=== PATIENT | male | born 1950 | race Native Hawaiian/Other Pacific Islander ===

== ENCOUNTER 2018-03-07 18:36 | Emergency (ER) | payer MEDICARE ==
[2018-03-07] MEDS ORDERED: KETOROLAC 30 MG/ML 1 ML VIAL IVP STA (18:57)
--- NOTE | 2018-03-07 19:03 | ED ---
Chest Pain HPI - General Chief Complaint: Chest Pain Stated Complaint: rib pain Time Seen by Provider: 03/07/18 18:47 Source: patient, family, RN notes reviewed Mode of arrival: ambulatory Limitations: no limitations - History of Present Illness Initial Comments: This is a 68-year-old male who presents to the emergency department with chief complaint of right rib pain. Patient states that he is a smoker. He states that he had a cold 2 weeks ago and was coughing a lot. He states that he developed right-sided rib pain 2 weeks ago during these episodes of coughing. He states that the pain has been constant and has not subsided. He states he's been taking Advil with minimal relief. He states that approximately 30 minutes prior to arrival he coughed and heard a popping noise in the right side of his chest. He then felt a burning and sharp sensation and the pain increased. He states that since then the pain has subsided somewhat. Currently rates his pain as 7/10. He states that he feels the pain when he pushes along his last rib. Denies fevers or chills, shortness of breath, trauma pain, nausea or vomiting, diarrhea or constipation, dysuria or hematuria. Patient does admit to a history of hypertension. He states that he took his lisinopril this morning. - Related Data Home Medications Medication Instructions Recorded Confirmed Atenolol [Tenormin] 50 mg PO DAILY 03/07/18 03/07/18 Atorvastatin [Lipitor] 20 mg PO DAILY 03/07/18 03/07/18 Citalopram Hydrobromide [CeleXA] 20 mg PO DAILY 03/07/18 03/07/18 Lisinopril [Zestril] 20 mg PO DAILY 03/07/18 03/07/18 Ranitidine HCl [Zantac] 150 mg PO BID 03/07/18 03/07/18 Previous Rx's Medication Instructions Recorded HYDROcodone/APAP 5-325MG [[place] 5] 1 each PO Q6HR PRN #10 tab 03/07/18 Allergies Allergy/AdvReac Type Severity Reaction Status Date / Time No Known Allergies Allergy Verified 03/07/18 19:05 Review of Systems ROS Statement: Those systems with pertinent positive or pertinent negative responses have been documented in the HPI. ROS Other: All systems not noted in ROS Statement are negative. EKG Findings - EKG Comments: EKG Findings:: 19:17:30. Normal sinus rhythm, right bundle branch block. Ventricular rate 63 bpm, LA interval 172, QRS duration 158, QT/QTc 444/454. Past Medical History Past Medical History: Hyperlipidemia, Hypertension History of Any Multi-Drug Resistant Organisms: None Reported Past Surgical History: Hernia Repair Smoking Status: Current every day smoker Past Alcohol Use History: None Reported Past Drug Use History: None Reported General Exam - General Exam Comments Initial Comments: General: Awake and alert, well-developed; in no apparent distress. HEENT: Head atraumatic, normocephalic. Pupils are equal, round and reactive to light. Extraocular movements intact. Oropharynx moist without erythema or exudate. Neck: Supple. Normal ROM. Cardiovascular: Regular rate and rhythm. No murmurs, rubs or gallops. Chest symmetrical. Reproducible tenderness on palpation along anterior inferior right ribs. Respiratory: Lungs clear to auscultation bilaterally. No wheezes, rales or rhonchi. Normal respiratory effort with no use of accessory muscles. Abdomen: Soft, non-tender, non-distended. No rigidity, rebound or guarding. Normal bowel sounds in all 4 quadrants. Musculoskeletal: Normal ROM, no tenderness bilateral upper and lower extremities. Ambulating normally. Skin: [place], warm and dry without rashes or lesions. Neurological: Alert and oriented x3. CN II-XII grossly intact. Speech is fluent and answers are appropriate. No focal neuro deficits. Psychiatric: Normal mood and affect. No overt signs of depression or anxiety noted. Limitations: no limitations Course Vital Signs 03/07/18 03/07/18 03/07/18 18:38 19:38 20:41 Temperature 98.3 F 99.1 F Pulse Rate 67 58 L Respiratory 20 18 Rate Blood Pressure 218/93 197/89 188/87 O2 Sat by Pulse 96 95 Oximetry Chest Pain MDM - MDM X-ray right ribs with PA chest findings: Demonstrated are scattered senescent parenchymal change. No evidence for pneumothorax. No evidence for focal contusion. Mediastinal structures are midline. Small chip fracture is difficult to exclude at the tip of right rib #10. Correlate clinically point tenderness. No additional fracture seen. Impression: Correlate for right rib 10 fracture. This is a 68-year-old male who presents to the emergency department with chief complaint of right rib pain. Reproducible pain on palpation of right anterior inferior ribs. Full workup was performed on patient. CBC, CMP were unremarkable. Troponin and cardiac markers were negative. EKG revealed normal sinus rhythm with right bundle branch block. Chest x-ray revealed evidence for a right rib #10 fracture. Patient will be discharged home at this time with pain control and spirometer. Patient's vital signs are stable and he is in no acute distress. He is in agreement with plan and voices understanding. All questions were answered. Disposition Clinical Impression: Rib fracture Disposition: HOME SELF-CARE Condition: Good Instructions: Rib Fracture (ED) Additional Instructions: Please take medications as prescribed. Please follow up with primary care provider within 1-2 days. Return to emergency department if symptoms should worsen or any concerns arise. Prescriptions: HYDROcodone/APAP 5-325MG [[place] 5] 1 each PO Q6HR PRN #10 tab PRN Reason: Pain Is patient prescribed a controlled substance at discharge?: Yes Referrals: Slim Holloway MD [Primary Care Provider] - 1-2 days Time of Disposition: 20:56
[2018-03-07 19:42] LABS: Basophils # (A) 0.1 k/uL (0-0.2); Basophils % (A) 1 %; Eosinophils # (A) 0.3 k/uL (0-0.7); Eosinophils % (A) 3 %; HCT 44.8 % (39.0-53.0); HGB 15.7 gm/dL (13.0-17.5); Lymphocytes # (A) 1.7 k/uL (1.0-4.8); Lymphocytes % (A) 20 %; MCH 32.3 pg (25.0-35.0); MCHC 35.1 g/dL (31.0-37.0); MCV 92.2 fL (80.0-100.0); Mean Platelet Volume 7.5; Monocytes # (A) 0.5 k/uL (0-1.0); Monocytes % (A) 6 %; Neutrophils # (A) 5.8 k/uL (1.3-7.7); Neutrophils % (A) 69 %; Platelet Count 235 k/uL (150-450); RBC 4.85 m/uL (4.30-5.90); RDW 13.5 % (11.5-15.5); WBC 8.5 k/uL (3.8-10.6)
[2018-03-07 19:58] LABS: Partial Thromboplastin Time 26.1 sec (22.0-30.0); Prothrombin Time 9.7 sec (9.0-12.0)
[2018-03-07 20:15] LABS: Creatine Kinase 83 U/L (55-170)
[2018-03-07 20:19] LABS: ALT 20 U/L (21-72); AST 23 U/L (17-59); Albumin 4.2 g/dL (3.5-5.0); Alkaline Phosphatase 96 U/L (38-126); Anion Gap 13 mmol/L; Blood Urea Nitrogen 17 mg/dL (9-20); Calcium 9.6 mg/dL (8.4-10.2); Carbon Dioxide 26 mmol/L (22-30); Chloride 102 mmol/L (98-107); Glucose 136 mg/dL (74-99); Magnesium 1.9 mg/dL (1.6-2.3); Sodium 141 mmol/L (137-145); Total Bilirubin 0.5 mg/dL (0.2-1.3); Total Protein 7.4 g/dL (6.3-8.2)
--- NOTE | 2018-03-07 20:21 | XR ---
EXAMINATION TYPE: XR ribs RT w pa chest xray DATE OF EXAM: 03/07/2018 COMPARISON: NONE HISTORY: Pain TECHNIQUE: Single view of the chest 4 views of the ribs are submitted. FINDINGS: Demonstrated are scattered senescent parenchymal change. No Evidence for pneumothorax. N o evidence for focal contusion. Mediastinal structures are midline. Small chip fracture is difficult to exclude at the tip of right rib #10. Correlate clinically point tenderness. No additional fractur e seen. IMPRESSION: Correlate for right rib 10 fracture.
[2018-03-07 20:26] LABS: Creatine Kinase MB 1.8 ng/mL (0.0-2.4); Troponin I <0.012 ng/mL (0.000-0.034)
[2018-03-07] MEDS ORDERED: hydrALAZINE HCL 20 MG/ML 1 ML VIAL IVP STA (20:33)
[2018-03-07 21:10] VITALS: BP 176/80; PULSE 54; RESP 16; TEMP 98
== END 2018-03-07 21:22 | disposition home or self-care (01) ==
LOC: EC 18:36
DX: S22.31XA Fracture of one rib, right side, initial encounter for closed fracture (principal); I45.10 Unspecified right bundle-branch block; I10 Essential (primary) hypertension; E78.5 Hyperlipidemia, unspecified; F17.200 Nicotine dependence, unspecified, uncomplicated; Z79.899 Other long term (current) drug therapy; X58.XXXA Exposure to other specified factors, initial encounter
CPT/HCPCS: 36415; 93005; 83880; 80053; 82550; 82553; 83735; 84484; 85025; 85610; 85730; 71101; 99284; 96374; J1885

== ENCOUNTER 2020-11-04 16:37 | Emergency (ER) | payer MEDICARE ==
[2020-11-04 16:51] VITALS: BP 175/84; PULSE 56; RESP 20; TEMP 98
--- NOTE | 2020-11-04 17:29 | ED ---
ENT HPI - General Chief complaint: ENT Stated complaint: foreign body rt ear Time Seen by Provider: 11/04/20 16:57 Source: patient Mode of arrival: ambulatory Limitations: no limitations - History of Present Illness Initial comments: 70-year-old male presenting to emergency Department chief complaint of a Q-tip stuck in the ear. Patient reports this occurred about one hour prior to arrival. She reports minimal pain in the right ear. States he can feel the pressure still there. Denies any discharge from the ear. States he attempts to remove it at home with no success. - Related Data Home Medications Medication Instructions Recorded Confirmed Atorvastatin [Lipitor] 20 mg PO DAILY 03/07/18 03/07/18 Citalopram Hydrobromide [CeleXA] 20 mg PO DAILY 03/07/18 03/07/18 Ranitidine HCl [Zantac] 150 mg PO BID 03/07/18 03/07/18 atenoloL [Tenormin] 50 mg PO DAILY 03/07/18 03/07/18 lisinopriL [Zestril] 20 mg PO DAILY 03/07/18 03/07/18 Previous Rx's Medication Instructions Recorded HYDROcodone/APAP 5-325MG [[place] 5] 1 each PO Q6HR PRN #10 tab 03/07/18 Allergies Allergy/AdvReac Type Severity Reaction Status Date / Time No Known Allergies Allergy Verified 11/04/20 16:51 Review of Systems ROS Statement: Those systems with pertinent positive or pertinent negative responses have been documented in the HPI. ROS Other: All systems not noted in ROS Statement are negative. Past Medical History Past Medical History: Hyperlipidemia, Hypertension History of Any Multi-Drug Resistant Organisms: None Reported Past Surgical History: Hernia Repair Past Psychological History: No Psychological Hx Reported Smoking Status: Current every day smoker Past Alcohol Use History: None Reported Past Drug Use History: None Reported General Exam Limitations: no limitations General appearance: alert, in no apparent distress Head exam: Present: atraumatic, normocephalic, normal inspection Eye exam: Present: normal appearance, PERRL, EOMI Pupils: Present: normal accommodation ENT exam: Present: normal exam, normal oropharynx, mucous membranes moist, TM's normal bilaterally. Absent: normal external ear exam (Right ear foreign body) Neck exam: Present: normal inspection, full ROM. Absent: tenderness Respiratory exam: Present: normal lung sounds bilaterally. Absent: respiratory distress, wheezes Cardiovascular Exam: Present: regular rate, normal rhythm, normal heart sounds GI/Abdominal exam: Present: soft. Absent: distended, guarding Extremities exam: Present: normal inspection, full ROM, normal capillary refill. Absent: tenderness, pedal edema, joint swelling Back exam: Present: normal inspection, full ROM. Absent: tenderness, CVA tenderness (R), CVA tenderness (L) Neurological exam: Present: alert, oriented X3 Psychiatric exam: Present: normal affect, normal mood Skin exam: Present: warm, dry, intact, normal color Course Vital Signs 11/04/20 16:48 Temperature 98.0 F Pulse Rate 56 L Respiratory 20 Rate Blood Pressure 175/84 O2 Sat by Pulse 97 Oximetry Procedures - Foreign Body Removal Ear Location: ear canal (R) Foreign Body Suspected: other (qtip) Foreign Body Removed: yes Foreign Body Removal Technique: forceps Tympanic Membrane Intact: Yes Patient Tolerated Procedure: well Complications: none Medical Decision Making - Medical Decision Making 70-year-old male presenting to the emergency department with chief complaint of foreign body in the right ear. I was able to remove the Q-tip using forceps. Patient outer procedure well. Hepatic membrane appears intact. Return parameters discussed. Case discussed with physician. Disposition Clinical Impression: Foreign body in right ear Disposition: HOME SELF-CARE Condition: Stable Instructions (If sedation given, give patient instructions): Ear Foreign Body (ED) Additional Instructions: Return to emergency department if symptoms worsen. Is patient prescribed a controlled substance at d/c from ED?: No Referrals: Slim Holloway MD [Primary Care Provider] - 1-2 days Time of Disposition: 17:29
== END 2020-11-04 17:49 | disposition home or self-care (01) ==
LOC: EC 16:37
DX: T16.1XXA Foreign body in right ear, initial encounter (principal); E78.5 Hyperlipidemia, unspecified; I10 Essential (primary) hypertension; F17.200 Nicotine dependence, unspecified, uncomplicated; Z79.899 Other long term (current) drug therapy; X58.XXXA Exposure to other specified factors, initial encounter
CPT/HCPCS: 69200; 99282

== ENCOUNTER 2021-12-15 08:31 | Day surgery (SDC) | payer MEDICARE ==
[2021-12-11 15:10] VITALS: BMI 28.3
[~2021-12-15 08:31] MED LIST: LACTATED RINGERS 1,000 ML IV SCH
[2021-12-15] MEDS ORDERED: LACTATED RINGERS 1,000 ML IV ONE (09:08)
[2021-12-15 09:09] VITALS: TEMP 97.4
[2021-12-15] MEDS ORDERED: PROPOFOL 10 MG/ML 20 ML VIAL IV ONE (10:16)
[2021-12-15] MEDS ORDERED: LIDOCAINE 1% INJ 10MG/ML (20 ML MDV) ONE (10:16)
--- NOTE | 2021-12-15 10:37 | P.PCN ---
Date of Procedure: 12/15/21 Implants: BRIEF HISTORY: Patient is a 71-year-old pleasant white male scheduled for an elective colonoscopy as a part of evaluation of prior history of colon polyps. Last colonoscopy was 5 years ago. PROCEDURE PERFORMED: Colonoscopy snare polypectomy. PREOPERATIVE DIAGNOSIS: History of colon polyps. IV sedation per Anesthesia. PROCEDURE: After informed consent was obtained, the patient, was brought into the endoscopy unit. IV sedation was administered by Anesthesia under continuous monitoring. Digital rectal examination was normal. Initially the Olympus CF-160 flexible video colonoscope was then inserted in the rectum, gradually advanced into the cecum without any difficulty. Careful examination was performed as the scope was gradually being withdrawn. Ileocecal valve and the appendiceal orifice were visualized and appeared normal. Prep was excellent. Mucosa of the cecum, appeared normal. Ascending colon there was a 3 mm polyp that was removed by cold biopsy. In the past colon there were 2 polyps measuring 5 mm in size removed by snare polypectomy. In the descending colon there was a 5 mm polyp removed by snare polypectomy. Rest of the ascending colon, transverse colon, descending colon, sigmoid colon, and rectum appeared normal. In the distal rectum there was a 1.5 cm polyp removed by snare polypectomy. Scattered left sided diverticulosis seen. Retroflexion was performed in the rectum and no lesions were seen. The patient tolerated the procedure well. IMPRESSION: 3 mm ascending colon polyp status post cold biopsy 5 mm sessile transverse colon polyp status post snare polypectomy 5 mm 2 descending colon polyp status post polypectomy 1 cm distal rectal polyp status post polypectomy Scattered sigmoid diverticula RECOMMENDATIONS: Findings of this examination were discussed with the patient as well as his family. He was advised to follow with the biopsy results. If the biopsy reveals adenoma he can have a repeat colonoscopy in 3 years..
[2021-12-15 10:47] VITALS: RESP 16
[2021-12-15 11:14] VITALS: BP 173/78; PULSE 61
== END 2021-12-15 11:40 | disposition home or self-care (01) ==
LOC: ORWHC2ENDO 08:31
PROVIDERS: ATTEND Internal Medicine Gastroenterology
DX: D12.3 Benign neoplasm of transverse colon (principal); D12.4 Benign neoplasm of descending colon; K57.30 Diverticulosis of large intestine without perforation or abscess without bleeding; K62.1 Rectal polyp; Z86.010 Personal history of colon polyps
CPT/HCPCS: 45380; 45385; J2001; J2704; 88305

== ENCOUNTER 2023-07-19 11:59 | Inpatient (IN) | payer MEDICARE ==
[2023-07-19 12:38] LABS: Basophils # (A) 0.1 k/uL (0-0.2); Basophils % (A) 1 %; Eosinophils # (A) 0.1 k/uL (0-0.7); Eosinophils % (A) 1 %; HCT 46.2 % (39.0-53.0); HGB 15.8 gm/dL (13.0-17.5); Lymphocytes # (A) 2.5 k/uL (1.0-4.8); Lymphocytes % (A) 23 %; MCHC 34.2 g/dL (31.0-37.0); MCV 93.7 fL (80.0-100.0); Monocytes # (A) 0.6 k/uL (0-1.0); Monocytes % (A) 6 %; Neutrophils # (A) 7.4 k/uL (1.3-7.7); Neutrophils % (A) 69 %; Platelet Count 298 k/uL (150-450); RBC 4.92 m/uL (4.30-5.90); RDW 14.3 % (11.5-15.5); WBC 10.8 k/uL (3.8-10.6)
[2023-07-19 12:50] LABS: ALT 17 U/L (4-49); AST 27 U/L (17-59); African American GFR (CKD) >90 (>60 ml/min/1.73 sqM); Albumin 4.2 g/dL (3.5-5.0); Alkaline Phosphatase 102 U/L (38-126); Anion Gap 10 mmol/L; Blood Urea Nitrogen 14 mg/dL (9-20); Calcium 9.5 mg/dL (8.4-10.2); Carbon Dioxide 25 mmol/L (22-30); Chloride 104 mmol/L (98-107); Glucose 136 mg/dL (74-99); Non-African American GFR(CKD) 85 (>60 ml/min/1.73 sqM); Potassium 3.9 mmol/L (3.5-5.1); Sodium 139 mmol/L (137-145); Total Bilirubin 0.6 mg/dL (0.2-1.3); Total Protein 7.7 g/dL (6.3-8.2)
[2023-07-19 12:51] LABS: Partial Thromboplastin Time 26.4 sec (22.0-30.0); Prothrombin Time 10.3 sec (9.0-12.0)
--- NOTE | 2023-07-19 12:53 | XR ---
EXAMINATION TYPE: XR chest 2V DATE OF EXAM: 07/19/2023 COMPARISON: 03/07/2019 HISTORY: Shortness of breath TECHNIQUE: Frontal and lateral views of the chest are obtained. FINDINGS: Scattered senescent parenchymal changes noted. Hyperinflation compatible with COPD. Interstitial infiltrates noted.The mid and lower lung zones bilaterally could reflect interstitial ed aide versus interstitial pneumonia. Correlate clinically. Heart size is stable. Mediastinal structures are stable and grossly unremarkable. No evidence for hilar prominence. Degenerative changes dorsal spine. IMPRESSION: 1. Interstitial infiltrates noted. The mid and lower lung zones bilaterally could reflect interstitia l edema versus interstitial pneumonia. Correlate clinically.
--- NOTE | 2023-07-19 13:05 | ED ---
General Adult HPI - General Source: patient, RN notes reviewed Mode of arrival: ambulatory Limitations: no limitations <Kishor Ross - Last Filed: 07/19/23 15:46> - History of Present Illness -: days(s) Location: neck, chest Severity scale (1-10): 7 Consistency: constant Improves with: none Worsens with: movement Associated Symptoms: chest pain, diaphoresis, shortness of breath, weakness Treatments Prior to Arrival: none <Erwin Whitehead - Last Filed: 07/23/23 22:38> - General Chief complaint: Shortness of Breath Stated complaint: SOB Time Seen by Provider: 07/19/23 13:04 - History of Present Illness Initial comments: 73-year-old male presents emergency Department chief complaint shortness breath, chest tightness. Patient states he is a daily smoker. He states had minimal cough. Patient denies any fevers or chills. Patient states he does feel some tightness, squeezing sensation. Patient does have a history of hypertension hyperlipidemia patient states is scheduled to see cardiology soon. Patient states that he feels that he has gas in his chest. Patient denies any nausea vomiting. (Kishor Ross) 73 male with significant shortness of breath and chest tightness, history of COPD and smoking, this does feel significantly worse he does have lower extremity swelling heaviness and severe exertional dyspnea. (Erwin Whitehead) - Related Data Home Medications Medication Instructions Recorded Confirmed Atorvastatin [Lipitor] 20 mg PO HS 03/07/18 07/19/23 Citalopram Hydrobromide [CeleXA] 20 mg PO DAILY 03/07/18 07/19/23 atenoloL [Tenormin] 50 mg PO DAILY 03/07/18 07/19/23 lisinopriL [Zestril] 20 mg PO DAILY 03/07/18 07/19/23 Cholecalciferol [Vitamin D3 (25 50 mcg PO DAILY 12/11/21 07/19/23 Mcg = 1000 Iu)] Omeprazole Magnesium [PriLOSEC] 20 mg PO DAILY 12/11/21 07/19/23 predniSONE [Deltasone] 20 mg PO DAILY 07/19/23 07/19/23 Allergies Allergy/AdvReac Type Severity Reaction Status Date / Time No Known Allergies Allergy Verified 07/19/23 15:12 Review of Systems ROS Other: All systems not noted in ROS Statement are negative. <Kishor Ross Elin - Last Filed: 07/19/23 15:46> ROS Other: All systems not noted in ROS Statement are negative. <CharleyErwin Pablo - Last Filed: 07/23/23 22:38> ROS Statement: Those systems with pertinent positive or pertinent negative responses have been documented in the HPI. Past Medical History Past Medical History: GERD/Reflux, Hyperlipidemia, Hypertension History of Any Multi-Drug Resistant Organisms: None Reported Past Surgical History: Hernia Repair Past Anesthesia/Blood Transfusion Reactions: No Reported Reaction Past Psychological History: No Psychological Hx Reported Smoking Status: Current every day smoker - Past Family History Mother Family Medical History: No Reported History <Kishor Ross - Last Filed: 07/19/23 15:46> - Past Family History Father Family Medical History: Myocardial Infarction (NH) Additional Family Medical History / Comment(s): at age 90 from a myocardial infarction <Erwin Whitehead - Last Filed: 07/23/23 22:38> General Exam Limitations: no limitations General appearance: alert, in no apparent distress Head exam: Present: atraumatic, normocephalic, normal inspection Eye exam: Present: normal appearance, PERRL, EOMI. Absent: scleral icterus, conjunctival injection, periorbital swelling ENT exam: Present: normal exam, normal oropharynx, mucous membranes moist Neck exam: Present: normal inspection, full ROM. Absent: tenderness, meningismus, lymphadenopathy Respiratory exam: Present: wheezes, decreased breath sounds. Absent: normal lung sounds bilaterally, respiratory distress, rales, rhonchi, stridor Cardiovascular Exam: Present: regular rate, normal rhythm, normal heart sounds. Absent: systolic murmur, diastolic murmur, rubs, gallop, clicks GI/Abdominal exam: Present: soft, normal bowel sounds. Absent: distended, tenderness, guarding, rebound, rigid <Kishor Ross - Last Filed: 07/19/23 15:46> General appearance: alert, in no apparent distress, anxious Head exam: Present: atraumatic, normocephalic, normal inspection Eye exam: Present: normal appearance, PERRL, EOMI. Absent: scleral icterus, conjunctival injection, periorbital swelling ENT exam: Present: normal exam, mucous membranes moist Neck exam: Present: normal inspection. Absent: tenderness, meningismus, lymphadenopathy Respiratory exam: Present: normal lung sounds bilaterally, wheezes, rales, accessory muscle use, decreased breath sounds. Absent: respiratory distress, rhonchi, stridor Cardiovascular Exam: Present: regular rate, normal rhythm, normal heart sounds. Absent: systolic murmur, diastolic murmur, rubs, gallop, clicks GI/Abdominal exam: Present: soft, normal bowel sounds. Absent: distended, tenderness, guarding, rebound, rigid Extremities exam: Present: normal inspection, full ROM, normal capillary refill. Absent: tenderness, pedal edema, joint swelling, calf tenderness Back exam: Present: normal inspection Neurological exam: Present: alert, oriented X3, CN II-XII intact Psychiatric exam: Present: normal affect, normal mood Skin exam: Present: warm, dry, intact, normal color. Absent: rash <Erwin Whitehead - Last Filed: 07/23/23 22:38> - General Exam Comments Initial Comments: Visual Physical Exam Vital signs reviewed General: Well-appearing, nontoxic, no acute distress. Head: Normocephalic, atraumatic Eyes: PERRLA, EOMI ENT: Airway patent Chest: Nonlabored breathing Skin: No visual rash, normal skin tone Neuro: Alert and oriented 3 Musculoskeletal: No gross abnormalities (Kishor Ross) Course <Erwin Whitehead - Last Filed: 07/23/23 22:38> Vital Signs 07/19/23 07/19/23 07/19/23 12:01 14:28 16:27 Temperature 97.9 F 98 F Pulse Rate 72 60 64 Respiratory 18 19 19 Rate Blood Pressure 152/83 150/75 142/61 O2 Sat by Pulse 93 L 95 94 L Oximetry - Reevaluation(s) Reevaluation #1: 07/19/23 20:39 Medical record is reviewed (Erwin Whitehead) Reevaluation #2: 07/19/23 20:39 Patient remains a severe shortness of breath (Erwin Whitehead) Reevaluation #3: Patient informed results and questions answered (Erwin Whitehead) Reevaluation #4: Was pt. sent in by a medical professional or institution (NAZARIO Nguyen, SUPERVISOR ENGINE REPAIR, urgent care, hospital, or retirement...) When possible be specific @ -no Did you speak to anyone other than the patient for history (EMS, parent, family, police, friend...)? What history was obtained from this source @ -no Did you review nursing and triage notes (agree or disagree)? Why? @ -agree Are old charts reviewed (outside hosp., previous admission, EMS record, old EKG, old radiological studies, urgent care reports/EKG's, retirement records)? Report findings @ -yes Differential Diagnosis (chest pain, altered mental status, abdominal pain women, abdominal pain men, vaginal bleeding, weakness, fever, dyspnea, syncope, headache, dizziness, GI bleed, back pain, seizure, CVA, palpatations, mental health, musculoskeletal)? @ -prior EKG interpreted by me (3pts min.). @ -yes X-rays interpreted by me (1pt min.). @ -yes CT interpreted by me (1pt min.). @ -yes U/S interpreted by me (1pt. min.). @ -no What testing was considered but not performed or refused? (CT, X-rays, U/S, labs)? Why? @ -none What meds were considered but not given or refused? Why? @ -none Did you discuss the management of the patient with other professionals (seb schwartz i.e. NAZARIO Nguyen, SUPERVISOR ENGINE REPAIR, lab, RT, psych nurse, social media marketer, set up / operator, teacher, campus safety officer, case work aide)? Give summary @ -no Was smoking cessation discussed for >3mins.? @ -no Was critical care preformed (if so, how long)? @ -no Were there social determinants of health that impacted care today? How? (Homelessness, low income, unemployed, alcoholism, drug addiction, transportation, low edu. Level, literacy, decrease access to med. care, [facility], rehab)? @ -none Was there de-escalation of care discussed even if they declined (Discuss DNR or withdrawal of care, Hospice)? DNR status @ -no What co-morbidities impacted this encounter? (DM, HTN, Smoking, COPD, CAD, Cancer, CVA, ARF, Chemo, Hep., AIDS, mental health diagnosis, sleep apnea, morbid obesity)? @ -none Was patient admitted / discharged? Hospital course, mention meds given and route, prescriptions, significant lab abnormalities, going to OR and other pertinent info. @ - 73 male to the emergency department for evaluation of COPD, computed by CHF pulmonary edema Crestor distress and will admit for supportive care. Admitted Undiagnosed new problem with uncertain prognosis? @ -no Drug Therapy requiring intensive monitoring for toxicity (Heparin, Nitro, Insulin, Cardizem)? @ -no Were any procedures done? @ -no Diagnosis/symptom? @ -CHF COPD pulmonary edema and hypoxia with respiratory distress Acute, or Chronic, or Acute on Chronic? @ -Acute Uncomplicated (without systemic symptoms) or Complicated (systemic symptoms)? @ -Complicated Side effects of treatment? @ -no Exacerbation, Progression, or Severe Exacerbation? @ -exacerbation Poses a threat to life or bodily function? How? (Chest pain, USA, NH, pneumonia, PE, COPD, DKA, ARF, appy, cholecystitis, CVA, Diverticulitis, Homicidal, Suicidal, threat to staff... and all critical care pts) @ -yes (Erwin Whitehead) Reevaluation #5: Differential Dyspnea: Coronary syndrome, arrhythmia, tamponade, asthma, COPD, pulmonary embolism, pneumonia, pneumothorax, pulmonary effusion, anaphylaxis, diabetic ketoacidosis, flailed chest, pulmonary contusion, diaphragmatic rupture, anemia, neuromuscular, this is not meant to be an all-inclusive list. Differential Chest Pain: Stable Angina, Unstable Angina, STEMI, NSTEMI Aortic Dissection, Pneumothorax, Musculoskeletal, Esophageal Spasm GERD, Cholecystitis, Pancreatitis, Zoster, this is not meant to be an all-inclusive list. (Erwin Whitehead) EKG Findings - EKG Comments: EKG Findings:: EKG phone at 12.09 sinus rhythm with rate of 66 [place] 118 QRS 168 QT/QTC 424/438 noted right bundle - EKG Results: EKG: interpreted by YAIMA <Kishor Ross - Last Filed: 07/19/23 15:46> - EKG Results: EKG: interpreted by YAIMA <Erwin Whitehead - Last Filed: 07/23/23 22:38> Medical Decision Making - Lab Data Result diagrams: 07/19/23 12:21 07/19/23 12:21 <Kishor Ross - Last Filed: 07/19/23 15:46> - Lab Data Result diagrams: 07/21/23 07:45 07/23/23 07:44 - EKG Data -: EKG Interpreted by Me - Radiology Data Radiology results: report reviewed (CT chest is positive for pulmonary edema), image reviewed <Erwin Whitehead - Last Filed: 07/23/23 22:38> - Medical Decision Making Was pt. sent in by a medical professional or institution (, PA, SUPERVISOR ENGINE REPAIR, urgent care, hospital, or retirement...) When possible be specific @ -No Did you speak to anyone other than the patient for history (EMS, parent, family, police, friend...)? What history was obtained from this source @ -No Did you review nursing and triage notes (agree or disagree)? Why? @ -I reviewed and agree with nursing and triage notes Were old charts reviewed (outside hosp., previous admission, EMS record, old EKG, old radiological studies, urgent care reports/EKG's, retirement records)? Report findings @ -No old charts were reviewed Differential Diagnosis (chest pain, altered mental status, abdominal pain women, abdominal pain men, vaginal bleeding, weakness, fever, dyspnea, syncope, headache, dizziness, GI bleed, back pain, seizure, CVA, palpatations, mental health, musculoskeletal)? @ -nDifferential Chest Pain: Stable Angina, Unstable Angina, STEMI, NSTEMI Aortic Dissection, Pneumothorax, Musculoskeletal, Esophageal Spasm GERD, Cholecystitis, Pancreatitis, Zoster, this is not meant to be an all-inclusive list. cable EKG interpreted by me (3pts min.). @ -As above X-rays interpreted by me (1pt min.). @ -Chest x-ray shows pulmonary edema versus infiltrates. CT interpreted by me (1pt min.). @ -CT chest angiogram shows no evidence of PE there is pulmonary edema type changes, COPD U/S interpreted by me (1pt. min.). @ -None done What testing was considered but not performed or refused? (CT, X-rays, U/S, labs)? Why? @ -None What meds were considered but not given or refused? Why? @ -None Did you discuss the management of the patient with other professionals (seb llamase. , PA, SUPERVISOR ENGINE REPAIR, lab, RT, psych nurse, social media marketer, set up / operator, teacher, campus safety officer, case work aide)? Give summary @ -[facility] physician for admission secondary to chest pain, pulmonary edema. There is questionable evidence of pneumonia. Was smoking cessation discussed for >3mins.? @ -No Was critical care preformed (if so, how long)? @ -No Were there social determinants of health that impacted care today? How? (Homelessness, low income, unemployed, alcoholism, drug addiction, transportation, low edu. Level, literacy, decrease access to med. care, [facility], rehab)? @ -No Was there de-escalation of care discussed even if they declined (Discuss DNR or withdrawal of care, Hospice)? DNR status @ -No What co-morbidities impacted this encounter? (DM, HTN, Smoking, COPD, CAD, Cancer, CVA, ARF, Chemo, Hep., AIDS, mental health diagnosis, sleep apnea, morbid obesity)? @ -[Smoking COPD, CAD] Was patient admitted / discharged? Hospital course, mention meds given and r oute, prescriptions, significant lab abnormalities, going to OR and other pertinent info. @ -[Admitted patient is admitted for chest pain, dyspnea with next picture of pulmonary edema, COPD, possible pneumonia.] Undiagnosed new problem with uncertain prognosis? @ -[No] Drug Therapy requiring intensive monitoring for toxicity (Heparin, Nitro, Insulin, Cardizem)? @ -[No] Were any procedures done? @ -[No] Diagnosis/symptom? @ -[Chest pain, pulmonary edema, pneumonia] Acute, or Chronic, or Acute on Chronic? @ -[Acute] Uncomplicated (without systemic symptoms) or Complicated (systemic symptoms)? @ -[, Complicated] Side effects of treatment? @ -[No] Exacerbation, Progression, or Severe Exacerbation? @ -[No] Poses a threat to life or bodily function? How? (Chest pain, USA, NH, pneumonia, PE, COPD, DKA, ARF, appy, cholecystitis, CVA, Diverticulitis, Homicidal, Suicidal, threat to staff... and all critical care pts) @ -[Yes] (Kishor Ross) 73 male to be admitted for pneumonia pulmonary edema and chest pain, patient is in significant respiratory distress and will admit for supportive care, cardiology evaluation (Erwin Whitehead) - Lab Data Lab Results 07/19/23 07/19/23 07/19/23 Range/Units 12:21 12:21 12:21 WBC 10.8 H (3.8-10.6) k/uL RBC 4.92 (4.30-5.90) m/uL Hgb 15.8 (13.0-17.5) gm/dL Hct 46.2 (39.0-53.0) % MCV 93.7 (80.0-100.0) fL MCH 32.0 (25.0-35.0) pg MCHC 34.2 (31.0-37.0) g/dL RDW 14.3 (11.5-15.5) % Plt Count 298 (150-450) k/uL MPV 8.0 Neutrophils % 69 % Lymphocytes % 23 % Monocytes % 6 % Eosinophils % 1 % Basophils % 1 % Neutrophils # 7.4 (1.3-7.7) k/uL Lymphocytes # 2.5 (1.0-4.8) k/uL Monocytes # 0.6 (0-1.0) k/uL Eosinophils # 0.1 (0-0.7) k/uL Basophils # 0.1 (0-0.2) k/uL PT 10.3 (9.0-12.0) sec INR 1.0 (<1.2) APTT 26.4 (22.0-30.0) sec Sodium 139 (137-145) mmol/L Potassium 3.9 (3.5-5.1) mmol/L Chloride 104 (98-107) mmol/L Carbon Dioxide 25 (22-30) mmol/L Anion Gap 10 mmol/L BUN 14 (9-20) mg/dL Creatinine 0.86 (0.66-1.25) mg/dL Est GFR (CKD-EPI)AfAm >90 (>60 ml/min/1.73 sqM) Est GFR (CKD-EPI)NonAf 85 (>60 ml/min/1.73 sqM) Glucose 136 H (74-99) mg/dL Calcium 9.5 (8.4-10.2) mg/dL Total Bilirubin 0.6 (0.2-1.3) mg/dL AST 27 (17-59) U/L ALT 17 (4-49) U/L Alkaline Phosphatase 102 (38-126) U/L Troponin I (0.000-0.034) ng/mL NT-Pro-B Natriuret Pep pg/mL Total Protein 7.7 (6.3-8.2) g/dL Albumin 4.2 (3.5-5.0) g/dL 07/19/23 07/19/23 Range/Units 12:21 13:05 WBC (3.8-10.6) k/uL RBC (4.30-5.90) m/uL Hgb (13.0-17.5) gm/dL Hct (39.0-53.0) % MCV (80.0-100.0) fL MCH (25.0-35.0) pg MCHC (31.0-37.0) g/dL RDW (11.5-15.5) % Plt Count (150-450) k/uL MPV Neutrophils % % Lymphocytes % % Monocytes % % Eosinophils % % Basophils % % Neutrophils # (1.3-7.7) k/uL Lymphocytes # (1.0-4.8) k/uL Monocytes # (0-1.0) k/uL Eosinophils # (0-0.7) k/uL Basophils # (0-0.2) k/uL PT (9.0-12.0) sec INR (<1.2) APTT (22.0-30.0) sec Sodium (137-145) mmol/L Potassium (3.5-5.1) mmol/L Chloride (98-107) mmol/L Carbon Dioxide (22-30) mmol/L Anion Gap mmol/L BUN (9-20) mg/dL Creatinine (0.66-1.25) mg/dL Est GFR (CKD-EPI)AfAm (>60 ml/min/1.73 sqM) Est GFR (CKD-EPI)NonAf (>60 ml/min/1.73 sqM) Glucose (74-99) mg/dL Calcium (8.4-10.2) mg/dL Total Bilirubin (0.2-1.3) mg/dL AST (17-59) U/L ALT (4-49) U/L Alkaline Phosphatase (38-126) U/L Troponin I <0.012 (0.000-0.034) ng/mL NT-Pro-B Natriuret Pep 546 pg/mL Total Protein (6.3-8.2) g/dL Albumin (3.5-5.0) g/dL Critical Care Time Critical Care Time: Yes Total Critical Care Time: 31 <Erwin Whitehead - Last Filed: 07/23/23 22:38> Disposition Time of Disposition: 15:49 <Kishor Ross - Last Filed: 07/19/23 15:46> Is patient prescribed a controlled substance at d/c from ED?: No <Erwin Whitehead - Last Filed: 07/23/23 22:38> Clinical Impression: Pulmonary edema, Chest pain, Pneumonia, Acute pulmonary edema, Congestive heart failure Disposition: ADMITTED IP TO THIS HOSP Condition: Serious
--- NOTE | 2023-07-19 15:29 | CT ---
EXAMINATION TYPE: CT chest angio for PE DATE OF EXAM: 07/19/2023 COMPARISON: 07/19/2023 HISTORY: SOB CT DLP: 456.4 mGycm Automated exposure control for dose reduction was used. CONTRAST: CT Chest for pulmonary embolism performed with with IV Contrast, patient injected with 100 mL of Isov ue 370. FINDINGS: LUNGS: The lungs are grossly clear, there is no concerning parenchymal mass or nodule identified. T here is no pneumothorax seen. Tiny bilateral pleural effusions. The tracheobronchial tree is patent. Groundglass changes are seen which may reflect mild venous congestion. Peripheral subsegmental areas of consolidation and changes of COPD. Interlobular septal thickening suggestive of chronic interstit ial pulmonary fibrosis. There is mild peribronchial wall thickening involving the lung bases. Reflux of the contrast in the IVC can be associated with right right cardiac strain or hepatic venous conges tion. MEDIASTINUM: There is satisfactory enhancement of the pulmonary artery and its branches, there is no CT evidence for pulmonary embolism. There are multiple soft tissue nodules seen mediastinum and the hilum measuring short axis greater than 1 cm compatible with adenopathy. Aorta normal caliber with a therosclerotic changes. No pericardial effusion is seen. Coronary artery calcifications are seen. Th e heart is enlarged. Pulmonary artery measures 3.8 cm and appears dilated. OTHER: Hypertrophic and degenerative changes of the spine. Abdominal aorta is included in a portion of the film measuring 3.3 cm compatible with aneurysm. Incidental note made of gynecomastia. Divertic ulosis of the colon. IMPRESSION: 1. No diagnostic evidence of pulmonary embolism. 2. COPD, pulmonary fibrosis correlate for mild CHF. There is dense coronary artery atherosclerosis. 3. Incidental note made of a abdominal aortic aneurysm partially included in the [id number] measur ing 3.3 cm. Nonspecific mediastinal and hilar lymphadenopathy. 4. Prominent pulmonary artery can BE associated pulmonary arterial hypertension.
[2023-07-19] MEDS ORDERED: NITROGLYCERIN SL TABS 0.4 MG TAB SUBLINGUAL PRN (15:50)
[2023-07-19] MEDS ORDERED: ASPIRIN 81 MG PO STA (15:50)
[2023-07-19] MEDS ORDERED: AZITHROMYCIN 500 MG in SODIUM CHLORIDE 0.9% 250 ML IVPB STA (15:51)
[2023-07-19] MEDS ORDERED: MAG HYDROX/AL HYDROX/SIMETH 30 ML, HYOSCYAMINE ELIXIR 10 ML PO STA ×2 (15:52)
[2023-07-19] MEDS: NICOTINE 21MG/24HR PATCH TRANSDERM SCH (20:04)
[2023-07-19] MEDS ORDERED: ATORVASTATIN 20 MG TAB PO SCH (21:00)
[2023-07-19] MEDS: MELATONIN 3 MG TABLET PO PRN (23:27)
[2023-07-20 00:38] LABS: Glucose,Whole Blood 117 mg/dL (70-110)
[2023-07-20] MEDS ORDERED: ALPRAZolam 0.25 MG TAB PO STA (01:03)
[2023-07-20] MEDS: PANTOPRAZOLE 40 MG TABLET PO SCH (06:45)
[2023-07-20] MEDS: CHOLECALCIFEROL 25 MCG (1000 IU) TABLET PO SCH (08:36)
[2023-07-20] MEDS: NICOTINE 21MG/24HR PATCH TRANSDERM SCH (08:36)
[2023-07-20] MEDS: CITALOPRAM HYDROBROMIDE 20 MG TAB PO SCH (08:37)
[2023-07-20] MEDS: atenoloL 50 MG TAB PO SCH (08:37)
[2023-07-20] MEDS: lisinopriL 20 MG TAB PO SCH (08:37)
[2023-07-20] MEDS: SODIUM CHLORIDE 0.9% 1,000 ML in EMPTY BAG 1 BAG IV SCH ×2 (08:55→20:06)
[2023-07-20] MEDS ORDERED: ASPIRIN 325 MG TAB PO SCH (09:00)
[2023-07-20] MEDS: ALPRAZolam 0.25 MG TAB PO PRN ×2 (10:34→22:41)
[2023-07-20 13:34] LABS: Chol/HDL Ratio 3.53 Ratio; LDL Cholesterol,Calculated 60.5 mg/dL (0.0-131.0)
[2023-07-20] MEDS ORDERED: fentaNYL (PF) 50 MCG/ML 2 ML AMP ONE (13:43)
--- NOTE | 2023-07-20 13:44 | P.CRDCN ---
History of Present Illness Consult date: 07/20/23 History of present illness: History of Present Illness: The patient is a 73-year-old male with a known history of hypertension, hyperlipidemia who presented with symptoms of progressive dyspnea and chest tightness. He has no prior documented history of obstructive coronary artery disease. He has a history of chronic tobacco use. He had sudden onset worsening dyspnea and the chest tightness here in the emergency room he was in sinus mechanism with no acute ST segment changes. His lab data showed a troponin of 0.043. The patient has no recent cardiac workup. He denies any PND, orthopnea or peripheral edema, he denies any palpitation dizziness or syncope. He has no history of CHF but he was told that he has a heart murmur in the past. Medications: Lisinopril 20 mg daily, Tenormin 50 mg daily, Lipitor 20 mg daily, omeprazole Review of Systems: Respiratory: Chronic dyspnea on exertion and chronic tobacco use GI: No nausea or vomiting . No history of peptic ulcer disease. No recent GI bleed. : No hematuria or dysuria. Nervous System: No stroke or seizure. Physical Examination: He is a 73-year-old male, alert and oriented no apparent distress ,Blood pressure 127/70, Heart rate 60 Head: Normocephalic. Eyes: Sclerae nonicteric. Neck: Good carotid upstroke, no bruit, no jugular venous distention. Lungs: Clear to auscultation. Heart: Regular rate and rhythm, S1-S2, no S3, no rub. Systolic ejection murmur 3/6, mid peaking. Abdomen: Soft nontender, positive bowel sounds no organomegaly. Extremities: No edema, intact distal pulses. Labs: Hemoglobin 15.8, potassium 3.9, BUN 14, creatinine 0.86. Troponin less than 0.012, 0.031, 0.043. Computed tomography scan showed evidence of COPD with coronary calcifications, abdominal aortic aneurysm of 3.3 cm but no evidence of pulmonary embolism. EKG: Sinus mechanism with right bundle branch block and left axis deviation, cannot exclude inferior wall myocardial infarction Impression: 1. Chest discomfort with mild troponin elevation consistent with non-STEMI 2. Aortic valve murmur consistent with aortic stenosis, probably moderate 3. Dyspnea on exertion with chronic tobacco use 4. History of hypertension 5. History of hyperlipidemia Plan: 1. Continue home medications 2. Obtain an echocardiogram with Doppler 3. I have recommended to proceed with coronary angiography to assess his status and guide his treatment, the procedure as well as the risks and the complications were discussed with the patient 4. Depending on the results of the testing further recommendations will be made 5. Thank you for this consult we will follow with you Past Medical History Past Medical History: GERD/Reflux, Hyperlipidemia, Hypertension History of Any Multi-Drug Resistant Organisms: None Reported Past Surgical History: Hernia Repair Past Anesthesia/Blood Transfusion Reactions: No Reported Reaction Past Psychological History: No Psychological Hx Reported Smoking Status: Current every day smoker Past Alcohol Use History: None Reported Additional Past Alcohol Use History / Comment(s): STARTED SMOKING AT AGE 15 QUIT ON AND OFF AND CURRENTLY SMOKING , SMOKES 1/2 PPD Past Drug Use History: None Reported - Past Family History Mother Family Medical History: No Reported History Medications and Allergies Home Medications Medication Instructions Recorded Confirmed Type Atorvastatin [Lipitor] 20 mg PO HS 03/07/18 07/19/23 History Citalopram Hydrobromide [CeleXA] 20 mg PO DAILY 03/07/18 07/19/23 History atenoloL [Tenormin] 50 mg PO DAILY 03/07/18 07/19/23 History lisinopriL [Zestril] 20 mg PO DAILY 03/07/18 07/19/23 History Cholecalciferol [Vitamin D3 (25 50 mcg PO DAILY 12/11/21 07/19/23 History Mcg = 1000 Iu)] Omeprazole Magnesium [PriLOSEC] 20 mg PO DAILY 12/11/21 07/19/23 History predniSONE [Deltasone] 20 mg PO DAILY 07/19/23 07/19/23 History Allergies Allergy/AdvReac Type Severity Reaction Status Date / Time No Known Allergies Allergy Verified 07/19/23 15:12 Physical Exam Vitals: Vital Signs Temp Pulse Pulse Pulse Pulse Resp BP 07/20/23 12:45 98.2 F 61 16 07/20/23 08:35 98.3 F 60 16 07/20/23 04:00 98.1 F 73 20 07/19/23 23:18 98.1 F 68 18 07/19/23 20:00 98.3 F 63 18 07/19/23 17:15 98.4 F 63 20 07/19/23 16:27 98 F 64 19 142/61 07/19/23 14:28 60 19 150/75 BP Pulse Ox 07/20/23 12:45 127/70 98 07/20/23 08:35 135/72 95 07/20/23 04:00 163/83 97 07/19/23 23:18 131/69 95 07/19/23 20:00 136/78 95 07/19/23 17:15 134/78 95 07/19/23 16:27 94 L 07/19/23 14:28 95 Intake and Output 07/19/23 07/20/23 07/20/23 22:59 06:59 14:59 Intake Total 190 200.4 Balance 190 200.4 Intake: IV 10 Invasive Line 1 10 Intake, IV Titration 200.4 Amount Sodium Chloride 0.9% 1, 150.4 000 ml In Empty Bag 1 bag @ 1 ML/KG/HR 72.575 mls/ hr IV [id number] Rx#: [id number] cefTRIAXone 2 gm In 50 Sodium Chloride 0.9% 50 ml @ 100 mls/hr IVPB Q24HR [facility] Rx#:[id number] Oral 180 0 Other: Voiding Method Toilet Toilet Toilet # Voids 1 2 # Bowel Movements 1 Weight 72.575 kg Results 07/19/23 12:21 07/19/23 12:21 Cardiac Enzymes 07/19/23 07/19/23 Range/Units 17:00 20:24 Troponin I 0.031 0.043 H* (0.000-0.034) ng/mL Lipids 07/20/23 Range/Units 08:13 Triglycerides 131.00 (0.00-149.00) mg/dL Cholesterol 121.00 (0.00-200.00) mg/dL HDL Cholesterol 34.30 L (40.00-60.00) mg/dL Cholesterol/HDL Ratio 3.53 Ratio Current Medications Generic Name Dose Route Start Last Admin Trade Name Freq PRN Reason Stop Dose Admin Alprazolam 0.25 mg 07/20/23 09:26 07/20/23 10:34 Alprazolam 0.25 Mg Tab PO 0.25 mg BID PRN Administration Anxiety Aspirin 325 mg 07/20/23 09:00 07/20/23 08:37 Aspirin 325 Mg Tab PO 325 mg DAILY ANCA Administration Atenolol 50 mg 07/20/23 09:00 07/20/23 08:37 Atenolol 50 Mg Tab PO 50 mg DAILY ANCA Administration Atorvastatin Calcium 20 mg 07/19/23 21:00 07/19/23 20:03 Atorvastatin 20 Mg Tab PO 20 mg HS ANCA Administration Cholecalciferol 50 mcg 07/20/23 09:00 07/20/23 08:36 Cholecalciferol 25 Mcg (1000 Iu) Tablet PO 50 mcg DAILY ANCA Administration Citalopram Hydrobromide 20 mg 07/20/23 09:00 07/20/23 08:37 Citalopram Hydrobromide 20 Mg Tab PO 20 mg DAILY ANCA Administration Ceftriaxone Sodium 2 gm/ 50 mls @ 100 mls/hr 07/20/23 09:00 07/20/23 08:36 Sodium Chloride IVPB 100 mls/hr Q24HR ANCA Administration Protocol Heparin Sodium (Porcine) 10, 1,001 mls @ 999 mls/hr 07/21/23 07:00 000 unit/ Sodium Chloride IRRIGATION 07/21/23 23:00 ONCE PRN INTRA-OP Heparin Sodium (Porcine) 2,500 250.5 mls @ 250 mls/hr 07/21/23 07:00 unit/ Sodium Chloride IRRIGATION 07/21/23 23:00 ONCE PRN INTRA-OP Sodium Chloride 1,000 ml/ IV 1,000 mls @ 72.575 mls/hr 07/20/23 08:45 07/20/23 08:55 Solution IV 72.575 mls/hr .[id number] ANCA Administration 1 ML/KG/HR Lisinopril 20 mg 07/20/23 09:00 07/20/23 08:37 Lisinopril 20 Mg Tab PO 20 mg DAILY ANCA Administration Melatonin 6 mg 07/19/23 23:07 07/19/23 23:27 Melatonin 3 Mg Tablet PO 6 mg HS PRN Administration Insomnia Nicotine 1 patch 07/19/23 18:45 07/20/23 08:36 Nicotine 21mg/24hr Patch TRANSDERM 1 patch DAILY ANCA Administration Nitroglycerin 0.4 mg 07/19/23 15:50 Nitroglycerin Sl Tabs 0.4 Mg Tab SUBLINGUAL Q5M PRN Chest Pain Pantoprazole Sodium 40 mg 07/20/23 07:30 07/20/23 06:45 Pantoprazole 40 Mg Tablet PO 40 mg [id number] Administration Intake and Output 07/19/23 07/20/23 07/20/23 22:59 06:59 14:59 Intake Total 190 200.4 Balance 190 200.4 Intake: IV 10 Invasive Line 1 10 Intake, IV Titration 200.4 Amount Sodium Chloride 0.9% 1, 150.4 000 ml In Empty Bag 1 bag @ 1 ML/KG/HR 72.575 mls/ hr IV [id number] Rx#: [id number] cefTRIAXone 2 gm In 50 Sodium Chloride 0.9% 50 ml @ 100 mls/hr IVPB Q24HR [facility] Rx#:[id number] Oral 180 0 Other: Voiding Method Toilet Toilet Toilet # Voids 1 2 # Bowel Movements 1 Weight 72.575 kg 07/19/23 12:21 07/19/23 12:21
[2023-07-20] MEDS ORDERED: IV FLUID CONTINUATION 1,000 ML IV ONE (13:45)
[2023-07-20] MEDS ORDERED: fentaNYL (PF) 50 MCG/ML 2 ML AMP IVP ONE (13:54)
[2023-07-20] MEDS ORDERED: LIDOCAINE 1% INJ 10MG/ML (5 ML VIAL-PF) SQ ONE (13:55)
[2023-07-20] MEDS ORDERED: VERAPAMIL SYRINGE (5 MG/10 ML) INTRAARTER ONE (13:59)
--- NOTE | 2023-07-20 14:16 | CA ---
Transthoracic Echo Report Name: Francisco Lucio Age: 73 Gender: M : 1950 Exam Date: 07/20/2023 09:20 Exam Location: [facility] Ht (in): 64 Wt (lb): 160 Ordering Physician: Kishor Ross Attending/Referring Phys: [id number], Vandana Cad Designer Ja King Procedure CPT: Indications: Chest pain, SOB Cardiac Hx: Technical Quality: Technically difficult study Contrast 1: Total Dose (mL): Contrast 2: Total Dose (mL): MEASUREMENTS (Male / Female) Normal Values 2D ECHO LV Diastolic Diameter PLAX 4.2 cm 4.2 - 5.9 / 3.9 - 5.3 cm LV Systolic Diameter PLAX 3.0 cm IVS Diastolic Thickness 1.2 cm 0.6 - 1.0 / 0.6 - 0.9 cm LVPW Diastolic Thickness 1.3 cm 0.6 - 1.0 / 0.6 - 0.9 cm LV Relative Wall Thickness 0.6 RV Internal Dim ED PLAX 3.2 cm LVOT Diameter 2.3 cm Aortic Root Diameter 3.2 cm LV Diastolic Volume MOD BP 58.3 cm??? 67 - 155 / 56 - 104 cm??? LV Systolic Volume MOD BP 19.6 cm??? 22 - 58 / 19 - 49 cm??? LV Ejection Fraction MOD BP 66.4 % >= 55 % LV Cardiac Index MOD BP 1312.3 cm???/min???m??? LV Diastolic Volume MOD 4C 58.8 cm??? LV Systolic Volume MOD 4C 19.6 cm??? LV Ejection Fraction MOD 4C 66.6 % LV Cardiac Index MOD 4C 1326.7 cm???/min???m??? LV Diastolic Length 4C 7.8 cm LV Systolic Length 4C 6.9 cm LV Diastolic Volume MOD 2C 52.0 cm??? LV Systolic Volume MOD 2C 19.8 cm??? LV Ejection Fraction MOD 2C 61.9 % LV Cardiac Index MOD 2C 1090.0 cm???/min???m??? LV Diastolic Length 2C 6.9 cm LV Systolic Length 2C 6.7 cm LA Volume 61.4 cm??? 18 - 58 / 22 - 52 cm??? DOPPLER AV Peak Velocity 200.7 cm/s AV Peak Gradient 16.1 mmHg LVOT Peak Velocity 125.4 cm/s LVOT Peak Gradient 6.3 mmHg AV Area Cont Eq pk 2.6 cm??? MV Peak Velocity 120.2 cm/s MV Peak Gradient 5.8 mmHg MV Mean Velocity 60.7 cm/s MV Mean Gradient 1.7 mmHg MV Velocity Time Integral 43.4 cm MR Peak Velocity 368.4 cm/s MR Peak Gradient 54.3 mmHg Mitral E Point Velocity 72.9 cm/s Mitral A Point Velocity 78.5 cm/s Mitral E to A Ratio 0.9 MV Deceleration Time 267.1 ms MV E' Velocity 3.6 cm/s Mitral E to MV E' Ratio 20.0 TR Peak Velocity 256.4 cm/s TR Peak Gradient 26.3 mmHg Right Ventricular Systolic Press 34.9 mmHg PV Peak Velocity 130.1 cm/s PV Peak Gradient 6.8 mmHg FINDINGS Left Ventricle Normal LV size and wall thickness. Left ventricular ejection fraction is estimated at 55-60 %. Right Ventricle Normal right ventricular size. RVSP= 53mmhg. Right Atrium Normal right atrial size. Left Atrium Normal left atrial size. LA Volume index= 35ml/m2 Mitral Valve Mitral valve not well visualized. Moderate MR. Aortic Valve Aortic valve not well visualized. At least moderate AV calcification. Trace AI. Tricuspid Valve Tricuspid valve not well visualized. Moderate TR. Pulmonic Valve Pulmonic valve not well visualized. Pericardium Normal pericardium. Aorta Normal size aortic root. CONCLUSIONS Difficult parasternal views. Normal LV systolic function Moderate pulmonary hypertension Aortic sclerosis with mild aortic stenosis and mild aortic insufficiency Previewed by: Dr. Bairon Benitez MD (Electronically Signed) Final Date: 20 July 2023 14:15
--- NOTE | 2023-07-20 14:23 | P.HPIM ---
History of Present Illness H&P Date: 07/20/23 This is a 73-year-old male who presented to the emergency department with feeling of chest pain or shortness of breath. Patient reported some pressure and squeezing sensation along with a minimal cough and bloating. Patient reports he follows with Dr. Holloway in the outpatient setting with a past medical history of GERD, hyperlipidemia, hypertension, continues to smoke about 1 pack per day, has an occasional drink although not very often and denies any other illicit drug use. Chest x-ray in the ER shows interstitial infiltrates noted with mid and lower lung zones bilaterally that could reflect edema versus interstitial pneumonia. Patient underwent CTA of the chest showing no diagnostic evidence of PE, COPD with pulmonary fibrosis correlate for mild CHF with a dense coronary artery atherosclerosis noted along with incidental note of abdominal aortic aneurysm partially included measuring approximately 3.3 cm with nonspecific mediastinal and hilar lymphadenopathy. There is a prominent pulmonary artery that can be associated with pulmonary artery hypertension. 2-D echo was ordered and pending and was patient was admitted for chest pain for cardiology evaluation. Patient started on heparin as troponins was 0.031 and trending up at 0.043. Virology testing including influenza, RSV, and CoVid were all negative. WBC revealed a 10.8, hemoglobin 15.8, platelets 298, INR 1.0, sodium was 139 with a potassium of 3.9, BUN was 14 with creatinine of 0.86, total bili is 0.6, LFTs within normal limits, BNP was 546. Patient is currently maintained on 2 L of oxygen via nasal cannula for shortness of breath and oxygen saturations are 95-98% and patient reports he does not wear oxygen outpatient. Patient has been counseled extensively on complete tobacco cessation. Review Of Systems: Constitutional: No fever, no chills, no night sweats. No weight change. No weakness, fatigue or lethargy. No daytime sleepiness. EENT: No headache. No blurred vision or double vision, no loss of vision. No loss of Hearing, no ringing in the ears, no dizziness. No nasal drainage or congestion. No epistaxis. No sore throat. Lungs: Reports shortness of breath, slight cough, no sputum production. No wheezing. Cardiovascular: Reports chest pain, no lower extremity edema. No palpitations. No paroxysmal nocturnal dyspnea. No orthopnea. No lightheadedness or dizziness. No syncopal episodes. Abdominal: No abdominal pain. No nausea, vomiting. No diarrhea. No constipation. No bloody or tarry stools.. No loss of appetite. Genitourinary: No dysuria, increased frequency, urgency. No urinary retention. Musculoskeletal: No myalgias. No muscle weakness, no gait dysfunction, no fr equent falls. No back pain. No neck pain. Integumentary: No wounds, no lesions. No rash or pruritus. No unusual bruising. No change in hair or nails. Neurologic: No aphasia. No facial droop. No change in mentation. No head injury. No headache. No paralysis. No paresthesia. Psychiatric: No depression. No anxiety. No mood swings. Endocrine: No abnormal blood sugars. No weight change. No excessive sweating or thirst. No cold intolerance. PHYSICAL EXAMINATION: GENERAL: The patient is alert and oriented x4, Well developed, well nourished. HEENT: Pupils are round and equally reacting to light. EOMI. no scleral icterus. No conjunctival pallor. Normocephalic, atraumatic. No pharyngeal erythema. No thyromegaly. CARDIOVASCULAR: S1 and S2 muffled PULMONARY: diminished breath sounds bilaterally with no wheezing or rhonchi noted. ABDOMEN: soft. Nontender on exam. obese. non-distended, normoactive bowel sounds. No palpable organomegaly. MUSCULOSKELETAL: No joint swelling or deformity. EXTREMITIES: No cyanosis, clubbing, or pedal edema. NEUROLOGICAL: Gross neurological examination did not reveal any focal deficits. SKIN: No rashes. Assessment: Chest pain, rule out ACS Acute hypoxic respiratory failure, possibly secondary to acute heart failure exacerbation, new onset 2-D echo is ordered and pending and scheduled to undergo cardiac catheterization Mild troponin elevation, most likely NSTEMI Mild leukocytosis, possibly reactive COPD, not in exacerbation Coronary artery atherosclerosis noted on CTA 3.3 cm abdominal aortic aneurysm noted on CTA Aortic valve murmur consistent with aortic stenosis, moderate History of GERD Hyperlipidemia history Hypertension history Continued ongoing nicotine dependence, smokes about 1 pack per day GI prophylaxis DVT prophylaxis Full code Plan: Patient was admitted for cardiology evaluation recommending cardiac catheter ization which is scheduled for sometime today. Patient is maintained on IV heparin as troponins were trending up Patient is currently on 2 L via nasal cannula and will wean FiO2 as tolerated. 2-D echo ordered and pending Home medications have been reviewed and resumed as appropriate Continue GI and DVT prophylaxis and will await cardiac catheterization report Encouraged increased activity as tolerated Continue telemetry monitoring Patient was started on empiric antibiotics in the ER as patient reported a slight cough, suspicion for any infection is extremely low will order procalcitonin which is currently pending. WBC was very minimally elevated at 10.8 and patient remains afebrile. Patient counseled on smoking cessation. The impression and plan of care has been dictated by Delia Oakes, nurse practitioner as directed. Dr. Renuka MD I have performed a history and examination and MDM of this patient, discussed the same with the dictator, and agree with the dictator's assessment and plan as written ,documented as a scribe. Based on total visit time, I have performed more than 50% of the visit. Any additional findings or plans will be noted. Past Medical History Past Medical History: GERD/Reflux, Hyperlipidemia, Hypertension History of Any Multi-Drug Resistant Organisms: None Reported Past Surgical History: Hernia Repair Past Anesthesia/Blood Transfusion Reactions: No Reported Reaction Past Psychological History: No Psychological Hx Reported Smoking Status: Current every day smoker Past Alcohol Use History: None Reported Additional Past Alcohol Use History / Comment(s): STARTED SMOKING AT AGE 15 QUIT ON AND OFF AND CURRENTLY SMOKING , SMOKES 1/2 PPD Past Drug Use History: None Reported - Past Family History Mother Family Medical History: No Reported History Medications and Allergies Home Medications Medication Instructions Recorded Confirmed Type Atorvastatin [Lipitor] 20 mg PO HS 03/07/18 07/19/23 History Citalopram Hydrobromide [CeleXA] 20 mg PO DAILY 03/07/18 07/19/23 History atenoloL [Tenormin] 50 mg PO DAILY 03/07/18 07/19/23 History lisinopriL [Zestril] 20 mg PO DAILY 03/07/18 07/19/23 History Cholecalciferol [Vitamin D3 (25 50 mcg PO DAILY 12/11/21 07/19/23 History Mcg = 1000 Iu)] Omeprazole Magnesium [PriLOSEC] 20 mg PO DAILY 12/11/21 07/19/23 History predniSONE [Deltasone] 20 mg PO DAILY 07/19/23 07/19/23 History Allergies Allergy/AdvReac Type Severity Reaction Status Date / Time No Known Allergies Allergy Verified 07/19/23 15:12 Physical Exam Vitals: Vital Signs Temp Pulse Pulse Pulse Resp BP BP 07/20/23 04:00 98.1 F 73 20 163/83 07/19/23 23:18 98.1 F 68 18 131/69 07/19/23 20:00 98.3 F 63 18 136/78 07/19/23 17:15 98.4 F 63 20 134/78 07/19/23 16:27 98 F 64 19 142/61 07/19/23 14:28 60 19 150/75 07/19/23 12:01 97.9 F 72 18 152/83 Pulse Ox 07/20/23 04:00 97 07/19/23 23:18 95 07/19/23 20:00 95 07/19/23 17:15 95 07/19/23 16:27 94 L 07/19/23 14:28 95 07/19/23 12:01 93 L Intake and Output 07/19/23 07/20/23 07/20/23 22:59 06:59 14:59 Intake Total 190 0 Balance 190 0 Intake: IV 10 Invasive Line 1 10 Oral 180 0 Other: Voiding Method Toilet Toilet # Voids 1 # Bowel Movements 1 Weight 72.575 kg Results CBC & Chem 7: 07/19/23 12:21 07/19/23 12:21 Labs: Abnormal Lab Results - Last 24 Hours (Table) 07/19/23 07/19/23 07/19/23 Range/Units 12:21 12:21 20:24 WBC 10.8 H (3.8-10.6) k/uL Glucose 136 H (74-99) mg/dL POC Glucose (mg/dL) (70-110) mg/dL Troponin I 0.043 H* (0.000-0.034) ng/mL 07/20/23 Range/Units 00:36 WBC (3.8-10.6) k/uL Glucose (74-99) mg/dL POC Glucose (mg/dL) 117 H (70-110) mg/dL Troponin I (0.000-0.034) ng/mL Thrombosis Risk Factor Assmnt - DVT/VTE Prophylaxis DVT/VTE Prophylaxis: Pharmacologic Prophylaxis ordered Assessment and Plan Time with Patient: Greater than 30
[2023-07-20] MEDS ORDERED: IOPAMIDOL-370 100ML BTL INJ ONE ×2 (14:28)
[2023-07-20] MEDS ORDERED: RX INFO: IV CONTRAST WAS GIVEN 1 EACH MISC MISCELLANE PRN (14:42)
[2023-07-20] MEDS ORDERED: SODIUM CHLORIDE 0.9% 1,000 ML IV SCH (14:45)
--- NOTE | 2023-07-20 14:51 | P.CARDCATH ---
Date of Procedure: 07/20/23 Description of Procedure: Cardiac Catheterization: The patient is a 73-year-old male with a known history of hypertension, hyperlipidemia, chronic tobacco use who presented with symptoms of acute dyspnea, mild troponin elevation. Recommendations were made regarding cardiac catheterization, the risks and the complications were discussed with the patient who is in full understanding and agreement. Procedure Description: Patient was brought to dental laboratory worker in fasting semi-sedated state after receiving Fentanyl and Benadryl achieiving moderate conscious sedated state. Using Xylocaine Anesthesia and Seldinger technique, a 6-Somali sheath was introduced in the right radial artery . Attempt to advance the wire were unsuccessful, there was extravasation. At that time the wire was removed, the sheath was removed and hemostasis was obtained with deployment of a TR band. Then using Xylocaine anesthesia and micropuncture catheter a 6-Somali sheath was introduced in the right femoral artery. Subsequently, selective coronary angiography was performed using a 6-Somali 4 bend Simin catheter. Multiple views of the coronary artery including hemiaxial views were obtained. The 6-Somali pigtail catheter was used to cross the aortic valve and LVEDP was calculated. An MATTA view of the left ventricle was obtained. Following that, catheter and sheath were removed. Hemostasis was obtained with deployment of Angio-Seal . There was no immediate complication. Patient was returned to room in stable condition. Findings: Fluoroscopy: Calcifications of the LAD was noted Left main: This is a large size vessel, bifurcating into LAD and left circumflex, left main has no obstructive disease LAD: This is a large size vessel, ectatic throughout its course. It has a 90% stenosis proximally and another 90% complex lesion in segment. There is the appearance of chronically occluded proximal that branch. The distal vessel has no high-grade stenosis. Left circumflex: This is a codominant vessel bifurcating distally to PDA and PLV. The first obtuse marginal branch is totally occluded with retrograde filli ng and appears to be large in caliber. The proximal left circumflex has 20% stenosis. RCA: This vessel is totally occluded in the midsegment with no significant antegrade flow. There is collateral from the left system toward the right PDA that appears to be large in caliber. Left Ventriculogram: Performed in the MATTA view and revealed a normal left ventricle size and systolic function with 4+ mitral regurgitation. Evidence of abdominal aortic aneurysm was noted Hemodynamics: There was a 20 mm gradient across the aortic valve , LVEDP was 32- 36 mmHg Conclusion: 1. Severe triple vessel disease 2. Severe mitral regurgitation 3. Mild to moderate aortic stenosis 4. Abdominal aortic aneurysm Recommendations: I have recommended to proceed with evaluation of the mitral valve by transesop hageal echocardiogram and subsequently being evaluated for coronary artery bypass grafting, mitral valve repair and possible aortic valve replacement. The findings and the recommendations were discussed with the patient and the family and they were in full understanding and agreement. Duration of sedation is 29 minutes.
--- NOTE | 2023-07-20 16:24 | P.GSCN ---
History of Present Illness Consult date: 07/20/23 Reason for Consult: Coronary artery disease and moderate mitral valve regurgitation. Requesting physician: Sis Higuera History of present illness: This is a 73-year-old gentleman who follows on an outpatient basis with Dr. Holloway for his primary care service. He has a past medical history significant for hypertension, hyperlipidemia, heart murmur, GERD, depression and chronic ongoing tobacco dependence in which she smokes 1 pack of cigarettes a day. On 07/19/2023 the patient presented to the emergency department here at [facility] with complaints of shortness of breath, chest tightness, lightheadedness and felt off balance. He denies any recent fever, chills, nausea, vomiting, diarrhea, headache, palpitations, hemoptysis, hematemesis, presyncope or syncope. Initial laboratory results showed a WBC count of 10.8, hemoglobin 15.8, hematocrit 46.2, platelets 298, PTT 26.4, PT 10.3, INR 1.0, sodium 139, potassium 3.9, BUN 14, creatinine 0.86, glucose 136, calcium 9.5, AST 27, ALT 17, proBNP was 546 and his serial troponins were less than 0.012, 0.031 and 0.043. A 12-lead EKG was completed which showed a right bundle branch block and left axis deviation with a heart rate of 66 bpm. A chest x-ray was completed in the emergency department which showed interstitial infiltrates, mid and lower lung zones bilaterally could reflect interstitial edema versus interstitial pneumonia. For further evaluation a CTA of the chest was completed for PE protocol which demonstrated no diagnostic evidence of pulmonary embolism, COPD, pulmonary fibrosis, correlate for mild CHF, dense coronary artery atherosclerosis, incidental note of an abdominal aortic aneurysm measuring 3.3 cm, nonspecific mediastinal and hilar lymphadenopathy and prominent pulmonary artery which was possibly associated with pulmonary artery hypertension. This morning the patient underwent a transthoracic 2-D echocardiogram which demonstrated a normal left ventricular size and wall thickness, left ventricular ejection fraction to be estimated at 55-60%, moderate mitral valve regurgitation, aortic valve was not well visualized with at least moderate aortic valve calcification and trace aortic valve insufficiency, moderate tricuspid valve regurgitation and a normal size aortic root. Due to the patient's presenting symptoms and troponin of 0.043 a consult was placed to Dr. Higuera from cardiology and the patient was recommended to undergo a cardiac catheterization which was completed today. The cardiac catheterization demonstrated severe triple vessel disease, severe mitral valve regurgitation, mild to moderate aortic valve stenosis and an abdominal aortic aneurysm. Due to the findings on the cardiac catheterization a consult was placed to Dr. Pura Mcintosh from cardiothoracic surgery for further evaluation and treatment recommendations including myocardial revascularization surgery and mitral valve surgery. Upon assessing the patient the patient is unsure whether he would like to undergo surgery but will discuss with his family. Review of Systems A 14 point review of systems was completed and was negative except as mentioned in HPI. Past Medical History Past Medical History: GERD/Reflux, Hyperlipidemia, Hypertension History of Any Multi-Drug Resistant Organisms: None Reported Past Surgical History: Hernia Repair Past Anesthesia/Blood Transfusion Reactions: No Reported Reaction Past Psychological History: Depression Smoking Status: Current every day smoker Past Alcohol Use History: None Reported Additional Past Alcohol Use History / Comment(s): STARTED SMOKING AT AGE 15 QUIT ON AND OFF AND CURRENTLY SMOKING , SMOKES 1 PPD Past Drug Use History: None Reported - Past Family History Mother Family Medical History: Cancer Additional Family Medical History / Comment(s): Brain tumor Father Family Medical History: Myocardial Infarction ([place]) Additional Family Medical History / Comment(s): at age 90 from a myocardial infarction Medications and Allergies Home Medications Medication Instructions Recorded Confirmed Type Atorvastatin [Lipitor] 20 mg PO HS 03/07/18 07/19/23 History Citalopram Hydrobromide [CeleXA] 20 mg PO DAILY 03/07/18 07/19/23 History atenoloL [Tenormin] 50 mg PO DAILY 03/07/18 07/19/23 History lisinopriL [Zestril] 20 mg PO DAILY 03/07/18 07/19/23 History Cholecalciferol [Vitamin D3 (25 50 mcg PO DAILY 12/11/21 07/19/23 History Mcg = 1000 Iu)] Omeprazole Magnesium [PriLOSEC] 20 mg PO DAILY 12/11/21 07/19/23 History predniSONE [Deltasone] 20 mg PO DAILY 07/19/23 07/19/23 History Allergies Allergy/AdvReac Type Severity Reaction Status Date / Time No Known Allergies Allergy Verified 07/19/23 15:12 Surgical - Exam Vital Signs Temp Pulse Resp BP Pulse Ox 97.9 F 72 18 152/83 93 L 07/19/23 12:01 07/19/23 12:01 07/19/23 12:01 07/19/23 12:01 07/19/23 12:01 - General well developed, well nourished, no distress, no pain - Eyes PERRL, normal ocular movement, no pale, no icteric - ENT normal pinna, normal nares, normal mucosa, no hearing loss, no congestion, poor correction - Neck Neck is supple, no lymphadenopathy. no masses, no bruits, trachea midline, no venous distension - Respiratory Lung sounds are essentially clear throughout. Respirations are spectral nonlabored. - Cardiovascular Regular rhythm and rate. S1 and S2 present, negative for S3 or gallop. Systolic murmur 3/6. - Abdomen Abdomen is soft, nontender and nondistended. Active bowel sounds present in all 4 abdominal quadrants. No guarding or rigidity. No organomegaly appreciated. - Genitourinary Deferred - Rectum Deferred - Integumentary Skin is warm and dry. No clubbing or cyanosis is present. no rash, no growths, no abnormal pigmentation - Neurologic No focal deficits. normal coordination, normal sensation - Musculoskeletal Moves all 4 extremities with equal strength bilaterally. normal gait, normal posture - Psychiatric oriented to time, oriented to person, oriented to place, speech is normal, memory intact Results - Labs 07/19/23 12:21 07/19/23 12:21 Abnormal Lab Results - Last 24 Hours (Table) 07/19/23 07/20/23 07/20/23 Range/Units 20:24 00:36 08:13 POC Glucose (mg/dL) 117 H (70-110) mg/dL Troponin I 0.043 H* (0.000-0.034) ng/mL HDL Cholesterol 34.30 L (40.00-60.00) mg/dL Diabetes panel 07/20/23 Range/Units 08:13 Triglycerides 131.00 (0.00-149.00) mg/dL HDL Cholesterol 34.30 L (40.00-60.00) mg/dL - Imaging Chest x-ray: report reviewed, image reviewed CT scan - chest: report reviewed, image reviewed Assessment and Plan Assessment: Multivessel coronary artery disease Moderate mitral valve regurgitation on transthoracic 2-D echocardiogram Mild to moderate aortic valve stenosis with trace aortic valve insufficiency on transthoracic 2-D echocardiogram Dyspnea on exertion, likely secondary to above Abdominal aortic aneurysm seen on cardiac catheterization History of hypertension History of hyperlipidemia Chronic ongoing tobacco dependence GERD History of depression Plan: The patient was seen and examined at his bedside on the cardiac stepdown unit. His chart and diagnostics reviewed. This case was discussed in detail with Dr. Pura Mcintosh from cardiothoracic surgery. Preoperative testing and preoperative teaching has been initiated, although the patient is unsure whether he wants to proceed with surgical intervention. He will discuss this with his family. Discussed the importance of smoking cessation with the patient. Once the patient is able to ambulate we will complete a 5 m walk test. Once his preoperative testing has been obtained we will calculate an STS risk score. Continue to maximize medical management. Medical management other comorbidities per primary care service and cardiology service. More recommendations to follow based on patient's clinical course and once his preop testing has been obtained and reviewed by the cardiothoracic surgeon. Thank you Dr. Higuera for this consult and we look forward to working with you in the care of this patient. I have personally seen and examined the patient, performed the documentation and the assessment and plan as written. Number of minutes spent on the visit, 30 minutes . Zafar ROSS
[2023-07-20] MEDS: SPIRONOLACTONE 25 MG TAB PO SCH (16:30)
[2023-07-20 19:08] LABS: Basophils # (A) 0.1 k/uL (0-0.2); Basophils % (A) 0 %; Eosinophils # (A) 0.1 k/uL (0-0.7); Eosinophils % (A) 1 %; HCT 39.9 % (39.0-53.0); HGB 13.7 gm/dL (13.0-17.5); Lymphocytes # (A) 1.4 k/uL (1.0-4.8); Lymphocytes % (A) 13 %; MCH 32.3 pg (25.0-35.0); MCHC 34.4 g/dL (31.0-37.0); Mean Platelet Volume 8.1; Monocytes # (A) 0.7 k/uL (0-1.0); Monocytes % (A) 7 %; Neutrophils # (A) 8.6 k/uL (1.3-7.7); Neutrophils % (A) 78 %; Platelet Count 178 k/uL (150-450); RBC 4.24 m/uL (4.30-5.90); RDW 14.6 % (11.5-15.5)
[2023-07-20 19:19] LABS: ALT 14 U/L (4-49); AST 19 U/L (17-59); African American GFR (CKD) >90 (>60 ml/min/1.73 sqM); Albumin 3.7 g/dL (3.5-5.0); Alkaline Phosphatase 105 U/L (38-126); Anion Gap 9 mmol/L; Blood Urea Nitrogen 20 mg/dL (9-20); Calcium 8.8 mg/dL (8.4-10.2); Carbon Dioxide 24 mmol/L (22-30); Chloride 103 mmol/L (98-107); Glucose 99 mg/dL (74-99); Non-African American GFR(CKD) 85 (>60 ml/min/1.73 sqM); Potassium 3.9 mmol/L (3.5-5.1); Sodium 136 mmol/L (137-145); Total Bilirubin 1.1 mg/dL (0.2-1.3); Total Protein 6.9 g/dL (6.3-8.2)
[2023-07-20] MEDS: ATORVASTATIN 40 MG TAB PO SCH (20:05)
[2023-07-20] MEDS: MUPIROCIN 2% OINT 22 GM TUBE NASAL SCH (20:05)
--- NOTE | 2023-07-20 21:26 | US ---
EXAMINATION TYPE: US carotid duplex BILAT DATE OF EXAM: 07/20/2023 COMPARISON: NONE CLINICAL INDICATION: Male, 73 years old with history of Pre-Op Cardiac Surgery; preop TECHNIQUE: Carotid duplex ultrasound examination. Indirect Doppler criteria was utilized. 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 Criteria for Assigning % of Stenosis / Diameter reduction (Estimation based on the indirect measurements of the internal carotid artery velocities (ICA PSV). 1. Normal (no stenosis)=ICA PSV < 125 cm/s: ratio < 2.0: ICA EDV<40 cm/s. 2. Less than 50% stenosis=ICA PSV < 125 cm/s: ratio < 2.0: ICA EDV<40 cm/s. 3. 50 to 69% stenosis=ICA PSV of 125 to 230 cm/s: ration 2.0 ? 4.0: ICA EDV 40-100 cm/s. 4. Greater than 70% stenosis to near occlusion= ICA PSV > 230 cm/s: ratio > 4.0: ICA EDV > 100 cm/s. 5. Near occlusion= ICA PSV velocities may be low or undetectable: variable ratio and ICA EDV. 6. Total occlusion=unable to detect flow.
--- NOTE | 2023-07-20 21:29 | US ---
EXAMINATION TYPE: US vein mapping BILAT DATE OF EXAM: 07/20/2023 8:42 PM COMPARISON: NONE CLINICAL INDICATION: Male, 73 years old with history of PreOp Cardiac Surgery; preop SIDE PERFORMED: bilat TECHNIQUE: Lower extremity saphenous vein is examined and measured utilizing real time linear array sonography. DUPLEX FINDINGS: Greater Saphenous: Color flow seen Lesser Saphenous: Color flow seen Measurements in mm: Right Greater Saphenous: Groin: 3.8 x 3.1 mm High Thigh: 3.8 x 3.3 mm Mid Thigh: 3.1 x 2.6 mm Above Knee: 2.6 x 2.3 mm Knee: 2.4 x 2.2 mm Below Knee: 2.3 x 1.7 mm Mid Calf: 2.2 x 1.4 mm At Ankle: 3.6 x 2.6 mm Left Greater Saphenous: Groin: 6.0 x 4.6 mm High Thigh: 4.1 x 4.3 mm Mid Thigh: 4.7 x 3.4 mm Above Knee: 4.1 x 3.5 mm Knee: 4.0 x 3.9 mm Below Knee: 3.4 x 2.5 mm Mid Calf: 3.2 x 2.4 mm At Ankle: 3.2 x 3.1 mm IMPRESSION: 1. Bilateral GSV measurements listed above. 2. Performing surgeon to determine viability as conduit.
--- NOTE | 2023-07-20 21:31 | US ---
EXAMINATION TYPE: Pre-Operative Non-Invasive Evaluation of the hand for Potential Radial Artery Antwan , Measurements only DATE OF EXAM: 07/20/2023 4:06 PM CLINICAL INDICATION: Male, 73 years old with history of Pre-Op Cardiac Surgery; preop surgery SIDE PERFORMED: Left TECHNIQUE: Radial artery is measured utilizing real time linear array sonography. Dominant hand: Right Duplex Findings: Radial Artery: Color flow seen Measurements in mm, transverse view: Radial artery: Proximal: 4.6 x 3.9 mm Mid: 4.3 mm Distal: 4.3 x 3.5 mm IMPRESSION: 1. measurements listed above. 2. Performing surgeon to determine viability as conduit.
[2023-07-20] MEDS: MELATONIN 3 MG TABLET PO PRN (22:41)
[2023-07-20 22:47] LABS: Appearance,Urine Clear (Clear); Bilirubin,Urine Negative (Negative); Blood,Urine Negative (Negative); Color,Urine Light Yellow; Glucose,Urine (UA) Negative (Negative); Ketones,Urine 1+ (Negative); Leukocyte Esterase,Urine Negative (Negative); Nitrite,Urine Negative (Negative); Protein,Urine Trace (Negative); Urobilinogen,Urine <2.0 mg/dL (<2.0)
[2023-07-20 22:57] LABS: Specific Gravity,Urine >1.050 (1.001-1.035)
[2023-07-21] MEDS ORDERED: IPRATROPIUM-ALBUTEROL 3 ML NEB INHALATION PRN (00:24)
--- NOTE | 2023-07-21 02:04 | P.CNPUL ---
History of Present Illness Consult date: 07/21/23 Requesting physician: Sis Higuera Chief complaint: Shortness of breath and chest tightness History of present illness: I am seeing this patient in new consultation today 07/21/2023 on the cardiac stepdown unit after being found to have multivessel coronary artery disease and severe mitral regurgitation, and is currently undergoing preoperative workup for possible open heart surgery. Patient is a 73-year-old white male with past medical history significant for hypertension, hyperlipidemia, known existing heart murmur, GERD, and chronic ongoing tobacco dependence smoking approximately 1 pack per day. Denies any history of pulmonary disease including COPD or asthma. He does not use any inhalers at home. His primary care provider is Dr. Holloway. Patient presented to the emergency room back on July 19 planing of shortness of breath, chest tightness, and lightheadedness that started approximately 2-3 days before arrival. He had a minimal nonproductive cough, but is not much different from his baseline. He denies any recent fever, chills, myalgias, hemoptysis, nausea, vomiting, diarrhea, heart palpitations, lower extremity swelling, presyncope or syncope. On arrival to the emergency room, a chest x-ray was completed in the emergency department which showed interstitial infiltrates, mid and lower lung zones bilaterally could reflect interstitial edema versus interstitial pneumonia. For further evaluation a CTA of the chest was completed for PE protocol which demonstrated no diagnostic evidence of pulmonary embolism, COPD, pulmonary fibrosis, correlate for mild CHF, dense coronary artery atherosclerosis, incidental note of an abdominal aortic aneurysm measuring 3.3 cm, nonspecific mediastinal and hilar lymphadenopathy and prominent pulmonary artery which was possibly associated with pulmonary artery hypertension. A 12-lead EKG was completed which showed normal sinus rhythm at a rate of 66 bpm and a right bundle branch block. Troponins mildly elevated at 0.043. NT proBNP not particularly elevated at 546. Most recent CBC shows a WBC count of 11, hemoglobin 13.7, hematocrit 39.9, platelets 178. Most recent BMP shows sodium 136, potassium 3.9, chloride 103, serum bicarb 24, BUN 20, creatinine 0.85, glucose 99. Patient was taken for heart catheterization yesterday which showed severe triple-vessel disease, severe mitral regurgitation, and mild to moderate aortic stenosis. Cardiothoracic services were consulted and recommendation for open heart surgery. Patient is currently sitting at the edge of the bed, on 3 L/m nasal cannula, in no acute distress. He is unsure if he wants to proceed with surgical revascularization. He is okay with proceeding with the preoperative workup. Bedside spirometry is scheduled. Review of Systems REVIEW OF SYSTEMS: CONSTITUTIONAL: Denies any recent significant weight loss or weight gain. EYES: Denies change in vision. EARS, NOSE, MOUTH, THROAT: Denies headaches, denies sore throat. CARDIOVASCULAR: Denies palpitations, syncopal episodes, lower extremity swelling. Admits substernal chest tightness on arrival to the emergency room which is subsided RESPIRATORY: Denies cough, congestion or hemoptysis. Admits shortness breath especially on exertion GASTROINTESTINAL: Denies change in appetite, abdominal pain, nausea and vomiting, or diarrhea GENITOURINARY: Denies hematuria, denies infections. MUSKULOSKELETAL: Denies pain, denies swelling. INTEGUMENTARY: Denies rash, denies eczema. NEUROLOGICAL: Denies recent memory loss, no recent seizure activity. PSYCHIATRIC: Denies anxiety, denies depression. HEMATOLOGIC/LYMPHATIC: Denies anemia, denies enlarged lymph node Past Medical History Past Medical History: GERD/Reflux, Hyperlipidemia, Hypertension History of Any Multi-Drug Resistant Organisms: None Reported Past Surgical History: Hernia Repair Past Anesthesia/Blood Transfusion Reactions: No Reported Reaction Past Psychological History: Depression Smoking Status: Current every day smoker Past Alcohol Use History: None Reported Additional Past Alcohol Use History / Comment(s): STARTED SMOKING AT AGE 15 QUIT ON AND OFF AND CURRENTLY SMOKING , SMOKES 1 PPD Past Drug Use History: None Reported - Past Family History Mother Family Medical History: Cancer Additional Family Medical History / Comment(s): Brain tumor Father Family Medical History: Myocardial Infarction ([place]) Additional Family Medical History / Comment(s): at age 90 from a myocardial infarction Medications and Allergies Home Medications Medication Instructions Recorded Confirmed Type Atorvastatin [Lipitor] 20 mg PO HS 03/07/18 07/19/23 History Citalopram Hydrobromide [CeleXA] 20 mg PO DAILY 03/07/18 07/19/23 History atenoloL [Tenormin] 50 mg PO DAILY 03/07/18 07/19/23 History lisinopriL [Zestril] 20 mg PO DAILY 03/07/18 07/19/23 History Cholecalciferol [Vitamin D3 (25 50 mcg PO DAILY 12/11/21 07/19/23 History Mcg = 1000 Iu)] Omeprazole Magnesium [PriLOSEC] 20 mg PO DAILY 12/11/21 07/19/23 History predniSONE [Deltasone] 20 mg PO DAILY 07/19/23 07/19/23 History Allergies Allergy/AdvReac Type Severity Reaction Status Date / Time No Known Allergies Allergy Verified 07/19/23 15:12 Physical Exam Vitals: Vital Signs Temp Pulse Pulse Resp BP Pulse Ox 07/20/23 23:30 98.0 F 70 18 127/70 98 07/20/23 20:00 98.5 F 68 18 138/71 95 07/20/23 16:27 61 116/66 07/20/23 15:57 73 124/58 07/20/23 15:27 65 16 122/56 07/20/23 15:12 62 16 123/67 07/20/23 14:57 59 L 16 122/68 07/20/23 14:42 68 14 134/73 85 L 07/20/23 12:45 98.2 F 61 16 127/70 98 07/20/23 08:35 98.3 F 60 16 135/72 95 07/20/23 04:00 98.1 F 73 20 163/83 97 Intake and Output 07/20/23 07/20/23 07/21/23 14:59 22:59 06:59 Intake Total 250.4 10 Output Total 300 Balance 250.4 -290 Intake: IV 50 10 Invasive Line 1 10 Intake, IV Titration 200.4 Amount Sodium Chloride 0.9% 1, 150.4 000 ml In Empty Bag 1 bag @ 1 ML/KG/HR 72.575 mls/ hr IV .[id number] ANCA Rx#: [id number] cefTRIAXone 2 gm In 50 Sodium Chloride 0.9% 50 ml @ 100 mls/hr IVPB Q24HR ANCA Rx#:[id number] Oral 0 0 Output: Urine 300 Other: Voiding Method Toilet Toilet Urinal # Voids 2 GENERAL EXAM: Alert, 73-year-old white male, comfortable in no apparent distres s. HEAD: Normocephalic and atraumatic EYES: Normal reaction of pupils, equal size. NOSE: Clear with pink turbinates. THROAT: No erythema or exudates. NECK: No masses, no JVD. CHEST: No chest wall deformity. LUNGS: Equal air entry without crackles, wheeze, rhonchi or dullness. On 3 L/m nasal cannula. No conversational dyspnea or accessory muscle use.. CVS: S1 and S2 normal with 3/6 systolic murmur, regular rhythm. No extra heart sounds ABDOMEN: No hepatosplenomegaly, active bowel sounds, no guarding or rigidity. SPINE: No scoliosis or deformity SKIN: No rashes CENTRAL NERVOUS SYSTEM: No focal deficits, tone is normal in all 4 extremities. EXTREMITIES: There is no peripheral edema, clubbing, or cyanosis. Peripheral pulses are intact. Results - Laboratory Findings CBC and BMP: 07/20/23 18:16 07/20/23 18:16 PT/INR, D-dimer PT 10.3 sec (9.0-12.0) 07/19/23 12:21 INR 1.0 (<1.2) 07/19/23 12:21 Abnormal lab findings: Abnormal Labs 07/19/23 07/19/23 07/19/23 12:21 12:21 20:24 WBC 10.8 H RBC Neutrophils # Sodium Glucose 136 H POC Glucose (mg/dL) Troponin I 0.043 H* HDL Cholesterol Ur Specific Maiden Urine Protein Urine Ketones 07/20/23 07/20/23 07/20/23 00:36 08:13 18:16 WBC 11.0 H RBC 4.24 L Neutrophils # 8.6 H Sodium Glucose POC Glucose (mg/dL) 117 H Troponin I HDL Cholesterol 34.30 L Ur Specific [place] Urine Protein Urine Ketones 07/20/23 07/20/23 18:16 21:00 WBC RBC Neutrophils # Sodium 136 L Glucose POC Glucose (mg/dL) Troponin I HDL Cholesterol Ur Specific [place]iden >1.050 H Urine Protein Trace H Urine Ketones 1+ H - Diagnostic Findings Chest x-ray: image reviewed CT scan - chest: image reviewed Assessment and Plan Assessment: Multi-vessel coronary artery disease and severe mitral regurgitation, being considered for open heart surgery with surgical revascularization and mitral valve replacement, however, the patient is unsure if he wants to proceed with this option. Exertional dyspnea, likely secondary to above. CTA of the chest was completed for PE protocol which demonstrated no diagnostic evidence of pulmonary embolism, COPD like changes, pulmonary fibrosis, trace bilateral pleural effusions, groundglass changes, posssibly mild venous congestion correlate for mild CHF exacerbation. Benign essential hypertension Hyperlipidemia Abdominal aortic aneurysm, measuring 3.3 cm incidentally found on chest CTA GERD Chronic ongoing nicotine dependence Plan: Patient's medications, labs and imaging reviewed Continue supplemental oxygen, and wean FiO2 as tolerated Patient is unsure if he wants to continue with surgical revascularization, but is okay to continue with his preoperative workup Bedside spirometry is ordered and pending Add when necessary Dominic bedolla Smoking cessation counseling performed If the patient does proceed with surgery, we will continue to follow and make recommendations, especially during his postoperative recovery while on the mechanical ventilator. I have personally seen and examined the patient, performed the documentation and the assessment and plan as written. Number of minutes spent on the visit:20 . Time with Patient: Greater than 30
[2023-07-21 02:22] LABS: Hepatitis A Antibody IgM Nonreactive; Hepatitis B Core IgM Nonreactive; Hepatitis B Surface Antigen Nonreactive; Hepatitis C IgG Antibody Nonreactive
[2023-07-21] MEDS ORDERED: HEPARIN SODIUM,PORCINE 10,000 UNIT in SODIUM CHLORIDE 0.9% 1,000 ML IRRIGATION PRN (07:00)
[2023-07-21] MEDS ORDERED: HEPARIN SODIUM,PORCINE (1 ML) 2,500 UNIT in SODIUM CHLORIDE 0.9% 250 ML IRRIGATION PRN (07:00)
[2023-07-21 08:05] LABS: Basophils % (A) 0 %; Eosinophils # (A) 0.1 k/uL (0-0.7); Eosinophils % (A) 1 %; HCT 39.2 % (39.0-53.0); HGB 13.3 gm/dL (13.0-17.5); Lymphocytes # (A) 1.6 k/uL (1.0-4.8); Lymphocytes % (A) 16 %; MCH 31.9 pg (25.0-35.0); MCHC 33.8 g/dL (31.0-37.0); MCV 94.4 fL (80.0-100.0); Mean Platelet Volume 7.9; Monocytes # (A) 0.6 k/uL (0-1.0); Monocytes % (A) 6 %; Neutrophils # (A) 7.6 k/uL (1.3-7.7); Neutrophils % (A) 75 %; Platelet Count 187 k/uL (150-450); RBC 4.15 m/uL (4.30-5.90); RDW 14.2 % (11.5-15.5); WBC 10.1 k/uL (3.8-10.6)
[2023-07-21] MEDS: lisinopriL 20 MG TAB PO SCH (09:01)
[2023-07-21] MEDS: SPIRONOLACTONE 25 MG TAB PO SCH (09:01)
[2023-07-21] MEDS: atenoloL 50 MG TAB PO SCH (09:01)
[2023-07-21] MEDS: ASPIRIN 81 MG PO SCH (09:01)
[2023-07-21] MEDS: MUPIROCIN 2% OINT 22 GM TUBE NASAL SCH ×2 (09:05→19:56)
[2023-07-21] MEDS ORDERED: fentaNYL (PF) 50 MCG/ML 2 ML AMP ONE (10:23)
[2023-07-21] MEDS ORDERED: IV FLUID CONTINUATION 500 ML IV ONE (10:30)
[2023-07-21] MEDS: BENZOCAINE SPRAY 1 CAN TOPICAL ONE ×2 (10:35→10:42)
--- NOTE | 2023-07-21 10:38 | P.PN ---
Subjective Progress Note Date: 07/21/23 PROGRESS NOTE The patient is a 73-year-old male with a known history of hypertension, hyperlipidemia who presented with symptoms of progressive dyspnea and chest tightness. He has no prior documented history of obstructive coronary artery disease. He has a history of chronic tobacco use. He had sudden onset worsening dyspnea and the chest tightness here in the emergency room he was in sinus mechanism with no acute ST segment changes. His lab data showed a troponin of 0.043. The patient has no recent cardiac workup. He denies any PND, orthopnea or peripheral edema, he denies any palpitation dizziness or syncope. He has no history of CHF but he was told that he has a heart murmur in the past. July 21: The patient underwent cardiac catheterization yesterday and was found to have severe triple vessel disease and severe mitral regurgitation with preserved systolic function. He is doing well this morning, he denies any chest discomfort, dizziness or palpitations. He continues to be in sinus mechanism. He is ambulating without difficulty. He is scheduled to be seen by cardiovascular surgery for CABG and mitral valve surgery. He will undergo a NICOLAS today to further evaluate his mitral valve apparatus. Medications: Aspirin, Tenormin 50 mg daily, Lipitor 40 mg daily, Zestril 20 mg daily, Aldactone 25 mg daily PHYSICAL EXAMINATION: Blood pressure 126/60 heart rate 70 LUNGS: Clear to auscultation HEART: Regular rate and rhythm, S1, S2. No S3. Holosystolic murmur at the base and systolic ejection murmur ABDOMEN: Soft, nontender, no organomegaly EXTREMETIES: No edema, right groin no hematoma LAB: Hemoglobin 13.3, WBC 10.1. IMPRESSION: 1. Severe triple vessel disease 2. Severe mitral regurgitation 3. Chronic tobacco use 4. Hypertension 5. Hyperlipidemia PLAN: 1. Proceed with transesophageal echocardiogram to evaluate the mitral and aortic valve 2. I discussed the findings with the patient and his family and he is in full understanding and agreement about the plan 3. Awaiting surgeon evaluation 4. Depending on the results of the testing further recommendations will be made Objective - Vital Signs Vital signs: Vital Signs Temp 97.8 F 07/21/23 08:00 Pulse 67 07/21/23 08:00 Resp 16 07/21/23 08:00 BP 126/65 07/21/23 08:00 Pulse Ox 98 07/21/23 08:00 FiO2 Intake & Output 07/20/23 07/21/23 07/21/23 18:59 06:59 18:59 Intake Total 250.4 10 0 Output Total 300 Balance 250.4 -290 0 Intake: IV 50 10 Invasive Line 1 10 Intake, IV Titration 200.4 Amount Sodium Chloride 0.9% 1, 150.4 000 ml In Empty Bag 1 bag @ 1 ML/KG/HR 72.575 mls/ hr IV .[id number] ANCA Rx#: [id number] cefTRIAXone 2 gm In 50 Sodium Chloride 0.9% 50 ml @ 100 mls/hr IVPB Q24HR ANCA Rx#:[id number] Oral 0 0 Output: Urine 300 Other: Voiding Method Toilet Toilet Urinal # Voids 2 2 - Labs CBC & Chem 7: 07/21/23 07:45 07/20/23 18:16 Labs: Abnormal Lab Results - Last 24 Hours (Table) 07/20/23 07/20/23 07/20/23 Range/Units 08:13 18:16 18:16 WBC 11.0 H (3.8-10.6) k/uL RBC 4.24 L (4.30-5.90) m/uL Neutrophils # 8.6 H (1.3-7.7) k/uL Sodium 136 L (137-145) mmol/L HDL Cholesterol 34.30 L (40.00-60.00) mg/dL Ur Specific [place] (1.001-1.035) Urine Protein (Negative) Urine Ketones (Negative) 07/20/23 07/21/23 Range/Units 21:00 07:45 WBC (3.8-10.6) k/uL RBC 4.15 L (4.30-5.90) m/uL Neutrophils # (1.3-7.7) k/uL Sodium (137-145) mmol/L HDL Cholesterol (40.00-60.00) mg/dL Ur Specific [place] >1.050 H (1.001-1.035) Urine Protein Trace H (Negative) Urine Ketones 1+ H (Negative) Microbiology - Last 24 Hours (Table) 07/19/23 15:57 Blood Culture - Preliminary Blood 07/19/23 15:57 Blood Culture - Preliminary Blood
[2023-07-21] MEDS ORDERED: MIDAZOLAM 2 MG/2 ML VIAL IVP ONE ×2 (10:42→10:45)
[2023-07-21] MEDS ORDERED: fentaNYL (PF) 50 MCG/ML 2 ML AMP IVP ONE (10:42)
[2023-07-21 11:10] LABS: African American GFR (CKD) >90 (>60 ml/min/1.73 sqM); Anion Gap 11 mmol/L; Blood Urea Nitrogen 21 mg/dL (9-20); Carbon Dioxide 24 mmol/L (22-30); Chloride 102 mmol/L (98-107); Glucose 121 mg/dL (74-99); Magnesium 2.1 mg/dL (1.6-2.3); Non-African American GFR(CKD) 86 (>60 ml/min/1.73 sqM); Potassium 3.7 mmol/L (3.5-5.1); Sodium 137 mmol/L (137-145)
--- NOTE | 2023-07-21 11:11 | P.PCN ---
Date of Procedure: 07/21/23 Description of Procedure: Indication: Evaluation of mitral valve Procedure Description: After explaining the procedure to the patient, it's risk and complications, blood pressure, heart rate and O2 saturation were monitored. The throat was sprayed with Cetacaine. Patient received 3 mg intravenous Versed, 50 mcg intravenous fentanyl. The probe was introduced into the esophagus without difficulty. Images were obtained. Following that, the probe was removed. There was no immediate complication. Findings: Left atrial size is moderately dilated, left ventricular systolic function is normal. The aortic valve revealed fibrocalcific changes with appearance of fused cusps with aortic valve area by planimetry of 2 cm. The mitral valve revealed ruptured chordae with prolapse of the posterior mitral valve leaflet. Tricuspid valve is normal. Descending thoracic aorta revealed mild atherosclerotic changes. No pericardial effusion was noted. Contrast bubble study revealed no shunting across the intra-atrial septum with Valsalva maneuver. Doppler: Pulse wave and color Doppler were obtained, and revealed severe eccentric mitral regurgitation with moderate tricuspid regurgitation and severe pulmonary hypertension. Mild aortic regurgitation was noted. The peak velocity across the aortic valve was 2 m/s. There was no shunting by color Doppler study. Conclusion: 1. Moderately dilated left atrium 2. Normal in ventricle size and systolic function 3. Severe eccentric mitral regurgitation with ruptured chordae and prolapse of the posterior mitral valve leaflet 4. Moderate tricuspid regurgitation with severe pulmonary hypertension 5. And mild aortic regurgitation with [id number] aortic stenosis with fused cusps 6. Mild atherosclerosis of the descending thoracic aorta 7. No pericardial effusion 8. No shunting across the intra-atrial septum
[2023-07-21] MEDS: PANTOPRAZOLE 40 MG TABLET PO SCH (12:32)
[2023-07-21] MEDS: CHOLECALCIFEROL 25 MCG (1000 IU) TABLET PO SCH (12:32)
[2023-07-21] MEDS: NICOTINE 21MG/24HR PATCH TRANSDERM SCH (12:33)
[2023-07-21] MEDS: CITALOPRAM HYDROBROMIDE 20 MG TAB PO SCH (12:33)
[2023-07-21] MEDS: SODIUM CHLORIDE 0.9% 1,000 ML in EMPTY BAG 1 BAG IV SCH (15:48)
--- NOTE | 2023-07-21 17:03 | US ---
EXAMINATION TYPE: US arterial LE single level DATE OF EXAM: 07/21/2023 4:52 PM CLINICAL INDICATION: Male, 73 years old with history of Ankle Brachial Index (ELIAN) ; Pre op CABG History of: Smoker: Current Hypertension: Yes Diabetic: No Hyperlipidemia: Yes TIA/CVA: No OR: No Doppler Waveforms: Right: Multiphasic Left: Multiphasic Right Brachial Pressure: 131 Left Brachial Pressure: Deferred due to IV Ankle-Brachial Indices: Right: 1.02 Left: 1.07 Toe Brachial Indices: Right: 0.82 Left: 0.87 IMPRESSION: Normal ankle-brachial indices bilaterally.
--- NOTE | 2023-07-21 18:04 | P.PN ---
Subjective Progress Note Date: 07/21/23 Principal diagnosis: Multivessel coronary artery disease, severe eccentric mitral regurgitation with ruptured chordae and prolapse of the posterior mitral valve leaflet, and [place] te tricuspid regurgitation with severe pulmonary hypertension. Past medical history significant for hypertension, hyperlipidemia, heart murmur, GERD, depression and chronic ongoing tobacco dependence in which she smokes 1 pack of cigarettes a day. The patient was seen and examined in follow-up today 07/21/2023 at his bedside on the cardiac stepdown unit. He is currently sitting up in bed, is awake, alert, oriented 3 and is in no acute apparent distress. The patient denies any complaints of shortness of breath or pain at this time. Oxygen saturations are 95% on 3 L nasal cannula. Preop workup is in progress. The patient is scheduled for a transesophageal echocardiogram today to be performed by Dr. Higuera. Remote telemetry showing sinus bradycardia heart rate 55 BPM. Carotid duplex study was completed which showed less than 50% stenosis of his bilateral carotid bifurcations. Also a bedside FEV1 was completed which demonstrated an FEV1 of 54% with a base volume of 1.26. The patient is still unsure whether he wants to undergo myocardial revascularization surgery and would like to further discuss with his family before deciding to proceed with surgery. Objective - Vital Signs Vital signs: Vital Signs Temp 97.8 F 07/21/23 08:00 Pulse 63 07/21/23 12:45 Resp 16 07/21/23 12:45 BP 120/69 07/21/23 12:45 Pulse Ox 95 07/21/23 12:45 FiO2 Intake & Output 07/20/23 07/21/23 07/21/23 18:59 06:59 18:59 Intake Total 250.4 10 120 Output Total 300 Balance 250.4 -290 120 Intake: IV 50 10 Invasive Line 1 10 Intake, IV Titration 200.4 Amount Sodium Chloride 0.9% 1, 150.4 000 ml In Empty Bag 1 bag @ 1 ML/KG/HR 72.575 mls/ hr IV .[id number] ANCA Rx#: [id number] cefTRIAXone 2 gm In 50 Sodium Chloride 0.9% 50 ml @ 100 mls/hr IVPB Q24HR ANCA Rx#:[id number] Oral 0 120 Output: Urine 300 Other: Voiding Method Toilet Toilet Toilet Urinal Urinal # Voids 2 2 2 - Exam CONSTITUTIONAL: Sitting up in bed on the cardiac stepdown unit, appears comfortable, cooperative, no apparent acute distress. HEENT: Neck is supple, no JVD, no lymphadenopathy. RESPIRATORY: Lungs sounds essentially clear throughout, diminished to his bilateral bases. Respirations are symmetrical and nonlabored. Currently on 3 L nasal cannula with oxygen saturations 95%. Able to achieve 1500 mL on their incentive spirometry. Strong cough. CARDIOVASCULAR: Regular rhythm and rate. S1 and S2 present, negative for S3, or gallop. Positive systolic murmur heard best to his right sternal border. GASTROINTESTINAL: Abdomen soft, nontender, nondistended. Active bowel sounds present 4 quadrants. Tolerating diet. Passing flatus. No guarding or rigidity. GENITOURINARY: Continues to void. INTEGUMENTARY: Skin is warm and dry with no evidence of clubbing or cyanosis. NEUROLOGIC: Cranial nerves II through XII intact. No focal deficits. MUSKULOSKELETAL: Able to move all extremities, strength equal bilaterallys. PSYCHIATRIC: Alert and oriented to person place and time, appropriate affect, intact judgment and insight. - Allied health notes Allied health notes reviewed: nursing - Labs CBC & Chem 7: 07/21/23 07:45 07/21/23 07:45 Labs: Abnormal Lab Results - Last 24 Hours (Table) 07/20/23 07/20/23 07/20/23 Range/Units 18:16 18:16 21:00 WBC 11.0 H (3.8-10.6) k/uL RBC 4.24 L (4.30-5.90) m/uL Neutrophils # 8.6 H (1.3-7.7) k/uL Sodium 136 L (137-145) mmol/L BUN (9-20) mg/dL Glucose (74-99) mg/dL Ur Specific [place] >1.050 H (1.001-1.035) Urine Protein Trace H (Negative) Urine Ketones 1+ H (Negative) 07/21/23 07/21/23 Range/Units 07:45 07:45 WBC (3.8-10.6) k/uL RBC 4.15 L (4.30-5.90) m/uL Neutrophils # (1.3-7.7) k/uL Sodium (137-145) mmol/L BUN 21 H (9-20) mg/dL Glucose 121 H (74-99) mg/dL Ur Specific [place] (1.001-1.035) Urine Protein (Negative) Urine Ketones (Negative) Microbiology - Last 24 Hours (Table) 07/19/23 15:57 Blood Culture - Preliminary Blood 07/19/23 15:57 Blood Culture - Preliminary Blood - Imaging and Cardiology Chest x-ray: report reviewed, image reviewed Carotid duplex study results reviewed. Assessment and Plan Assessment: Multivessel coronary artery disease Moderate mitral valve regurgitation on transthoracic 2-D echocardiogram Mild to moderate aortic valve stenosis with trace aortic valve insufficiency on transthoracic 2-D echocardiogram Dyspnea on exertion, likely secondary to above Abdominal aortic aneurysm seen on cardiac catheterization History of hypertension History of hyperlipidemia Chronic ongoing tobacco dependence GERD History of depression Plan: Continue to reinforce preoperative teaching. Preoperative workup remains in progress. We will obtain a 5 m walk test tomorrow 07/22/2023. Once the patient's preoperative testing has been obtained we will calculate an STS risk score which will be discussed with the patient. Importance of smoking cessation has been reinforced with the patient. Dr. Mcintosh has met with the patient discussed the findings on the transesophageal echocardiogram, and cardiac catheterization results. Treatment options discussed including myocardial revascularization, mitral valve repair, and tricuspid valve repair. Risks and benefits of surgery were discussed with the patient. The patient continues to wish to discuss with his family whether to proceed with the surgical option. Once the patient has decided, if he decides to proceed with surgery, surgical date to follow. Medical management and other comorbidities per primary care service. More recommendations to follow based on patient's clinical course. Time with Patient: Greater than 30
[2023-07-21] MEDS: ATORVASTATIN 40 MG TAB PO SCH (19:56)
[2023-07-21] MEDS: ALPRAZolam 0.25 MG TAB PO PRN (21:25)
[2023-07-21] MEDS: MELATONIN 3 MG TABLET PO PRN (21:25)
--- NOTE | 2023-07-21 21:48 | CT ---
EXAMINATION TYPE: CT facial bones wo con CT DLP: 511.0 mGycm, Automated exposure control for dose reduction was used. DATE OF EXAM: 07/21/2023 9:40 PM COMPARISON: None. CLINICAL INDICATION:Male, 73 years old with history of preop cardiac surgery clearance; PHH, Pre-op c ardiac surgery clearance TECHNIQUE: Multiple unenhanced axial CT images were obtained of the facial bones soft tissue and bone windows. Coronal and axial reformatted images were also provided in soft tissue and bone windows an d submitted for interpretation. FINDINGS: There is no evidence of fracture, subluxation, dislocation, or significant soft tissue swelling. Few dermal calcifications. The orbital contents are unremarkable. The temporal-mandibular joints appear s ymmetric. Mild nasal septal deviation to the right. The visualized portion of the paranasal sinuses a ppear clear. No periapical lucency. IMPRESSION: No acute facial bone fracture.
--- NOTE | 2023-07-21 22:09 | P.PN ---
Subjective Progress Note Date: 07/21/23 This is a 73-year-old male who presented to the emergency department with feeling of chest pain or shortness of breath. Patient reported some pressure and squeezing sensation along with a minimal cough and bloating. Patient reports he follows with Dr. Holloway in the outpatient setting with a past medical history of GERD, hyperlipidemia, hypertension, continues to smoke about 1 pack per day, has an occasional drink although not very often and denies any other illicit drug use. Chest x-ray in the ER shows interstitial infiltrates noted with mid and lower lung zones bilaterally that could reflect edema versus interstitial pneumonia. Patient underwent CTA of the chest showing no diagnostic evidence of PE, COPD with pulmonary fibrosis correlate for mild CHF with a dense coronary artery atherosclerosis noted along with incidental note of abdominal aortic aneurysm partially included measuring approximately 3.3 cm with nonspecific mediastinal and hilar lymphadenopathy. There is a prominent pulm onary artery that can be associated with pulmonary artery hypertension. 2-D echo was ordered and pending and was patient was admitted for chest pain for cardiology evaluation. Patient started on heparin as troponins was 0.031 and trending up at 0.043. Virology testing including influenza, RSV, and CoVid were all negative. WBC revealed a 10.8, hemoglobin 15.8, platelets 298, INR 1.0, sodium was 139 with a potassium of 3.9, BUN was 14 with creatinine of 0.86, total bili is 0.6, LFTs within normal limits, BNP was 546. Patient is currently maintained on 2 L of oxygen via nasal cannula for shortness of breath and oxygen saturations are 95-98% and patient reports he does not wear oxygen outpatient. Patient has been counseled extensively on complete tobacco cessation. 07/21/2023 Patient is seen and evaluated in follow-up with cardiology following along with CT surgery which has been consulted. Patient underwent cardiac catheterization showing triple-vessel heart disease and cardiothoracic has been consulted to discuss possible surgical intervention. Initiation of preoperative clearance has been ongoing and patient was scheduled to undergo NICOLAS today. Patient continues on 2 L via nasal cannula and reports his shortness of breath is improved and keeps asking if he could go home. Awaiting further evaluation from CT surgery and will discuss further with them about this. Family at the bedside with multiple questions and concerns were answered to the best of our ability. Patient's at bedside reports he smokes at least 2 packs a day of cigarettes and he mentioned only 1 pack per day and also drinks coffee from the time he wakes up until the time he goes to bed all day. Patient is afebrile denies chest pain or palpitations. No worsening shortness of breath noted. Patient was nothing by mouth for NICOLAS and diet resumed after procedure and tolerating with no reports of nausea or vomiting. Pro-calcitonin was normal and will discontinue empiric antibiotics. Review of systems: Constitutional: No reports of fatigue, fever, or chills Cardiovascular: No reports of chest pain or palpitations Respiratory: No reports of worsening shortness of breath or cough GI: No reports of nausea, vomiting, or diarrhea : No reports of dysuria or retention Neurovascular: No reports of weakness or numbness All medications have been reviewed PHYSICAL EXAMINATION: GENERAL: The patient is alert and oriented x4, Well developed, well nourished. HEENT: Pupils are round and equally reacting to light. EOMI. no scleral icterus. No conjunctival pallor. Normocephalic, atraumatic. No pharyngeal erythema. No thyromegaly. CARDIOVASCULAR: S1 and S2 muffled PULMONARY: diminished breath sounds bilaterally with no wheezing or rhonchi noted. ABDOMEN: soft. Nontender on exam. obese. non-distended, normoactive bowel sounds. No palpable organomegaly. MUSCULOSKELETAL: No joint swelling or deformity. EXTREMITIES: No cyanosis, clubbing, or pedal edema. NEUROLOGICAL: Gross neurological examination did not reveal any focal deficits. SKIN: No rashes. Assessment: Chest pain status post cardiac catheterization found to have triple-vessel disease and CT surgery evaluation and further workup Acute hypoxic respiratory failure, possibly secondary to acute heart failure e xacerbation, new onset 2-D echo is pending Mild troponin elevation, most likely NSTEMI Mild leukocytosis, possibly reactive COPD, not in exacerbation Coronary artery atherosclerosis noted on CTA 3.3 cm abdominal aortic aneurysm noted on CTA Aortic valve murmur consistent with aortic stenosis, moderate History of GERD Hyperlipidemia history Hypertension history Continued ongoing nicotine dependence, smokes about 2 packs per day Excessive caffeine intake daily GI prophylaxis DVT prophylaxis Full code Plan: Patient was admitted for cardiology evaluation and underwent cardiac catheterization showing severe triple-vessel disease and cardiothoracic surgery has been consulted and initiation of presurgical screening and risk factor scoring for possible CABG with valve replacement workup is being done Patient underwent NICOLAS today awaiting official report Patient is currently on 2 L via nasal cannula and will wean FiO2 as tolerated. Home medications have been reviewed and resumed as appropriate Continue GI and DVT prophylaxis Encouraged increased activity as tolerated Continue telemetry monitoring Patient was started on empiric antibiotics in the ER as patient reported a slight cough, suspicion for any infection is extremely low and were ruled out. Pro-calcitonin was normal and antibiotics being discontinued Patient counseled extensively on smoking cessation. reports he smokes approximately 2 packs per day and drinks caffeinated coffee from the time he wakes up until bedtime. Patient to discuss further about surgical intervention as he is unsure if he wants to undergo cabg. Overall prognosis is guarded at this time. The impression and plan of care has been dictated by Delia Oakes, nurse practitioner as directed. Dr. Renuka MD I have performed a history and examination and MDM of this patient, discussed the same with the dictator, and agree with the dictator's assessment and plan as written ,documented as a scribe. Based on total visit time, I have performed more than 50% of the visit. Any additional findings or plans will be noted. Objective - Vital Signs Vital signs: Vital Signs Temp 97.8 F 07/21/23 08:00 Pulse 63 07/21/23 12:45 Resp 16 07/21/23 12:45 BP 120/69 07/21/23 12:45 Pulse Ox 95 07/21/23 12:45 FiO2 Intake & Output 07/20/23 07/21/23 07/21/23 18:59 06:59 18:59 Intake Total 250.4 10 0 Output Total 300 Balance 250.4 -290 0 Intake: IV 50 10 Invasive Line 1 10 Intake, IV Titration 200.4 Amount Sodium Chloride 0.9% 1, 150.4 000 ml In Empty Bag 1 bag @ 1 ML/KG/HR 72.575 mls/ hr IV .[id number] ANCA Rx#: [id number] cefTRIAXone 2 gm In 50 Sodium Chloride 0.9% 50 ml @ 100 mls/hr IVPB Q24HR ANCA Rx#:[id number] Oral 0 0 Output: Urine 300 Other: Voiding Method Toilet Toilet Toilet Urinal Urinal # Voids 2 2 - Labs CBC & Chem 7: 07/21/23 07:45 07/21/23 07:45 Labs: Abnormal Lab Results - Last 24 Hours (Table) 07/20/23 07/20/23 07/20/23 Range/Units 18:16 18:16 21:00 WBC 11.0 H (3.8-10.6) k/uL RBC 4.24 L (4.30-5.90) m/uL Neutrophils # 8.6 H (1.3-7.7) k/uL Sodium 136 L (137-145) mmol/L BUN (9-20) mg/dL Glucose (74-99) mg/dL Ur Specific [place] >1.050 H (1.001-1.035) Urine Protein Trace H (Negative) Urine Ketones 1+ H (Negative) 07/21/23 07/21/23 Range/Units 07:45 07:45 WBC (3.8-10.6) k/uL RBC 4.15 L (4.30-5.90) m/uL Neutrophils # (1.3-7.7) k/uL Sodium (137-145) mmol/L BUN 21 H (9-20) mg/dL Glucose 121 H (74-99) mg/dL Ur Specific [place] (1.001-1.035) Urine Protein (Negative) Urine Ketones (Negative) Microbiology - Last 24 Hours (Table) 07/19/23 15:57 Blood Culture - Preliminary Blood 07/19/23 15:57 Blood Culture - Preliminary Blood
[2023-07-22] MEDS: SODIUM CHLORIDE 0.9% 1,000 ML in EMPTY BAG 1 BAG IV SCH (02:40)
[2023-07-22] MEDS: PANTOPRAZOLE 40 MG TABLET PO SCH (06:09)
--- NOTE | 2023-07-22 06:56 | CA ---
Transthoracic Echo Report Name: Francisco Lucio Age: 73 Gender: M : 1950 Exam Date: 07/21/2023 10:59 Exam Location: [place] [facility] Ht (in): 64 Wt (lb): 160 Ordering Physician: Mary Crystal Attending/Referring Phys: Barrel Lathe Operator Outside [place] [facility] Procedure CPT: Indications: s/p jeanette Cardiac Hx: Technical Quality: Technically difficult study Contrast 1: Total Dose (mL): Contrast 2: Total Dose (mL): MEASUREMENTS (Male / Female) Normal Values 2D ECHO LVOT Diameter 2.0 cm DOPPLER AV Peak Velocity 212.1 cm/s AV Peak Gradient 18.0 mmHg AV Mean Velocity 141.2 cm/s AV Mean Gradient 8.9 mmHg AV Velocity Time Integral 39.1 cm LVOT Peak Velocity 141.9 cm/s LVOT Peak Gradient 8.1 mmHg LVOT Velocity Time Integral 26.7 cm LVOT Stroke Volume 87.6 cm??? LVOT Stroke Volume Index 49.2 ml/m??? LVOT Cardiac Index 2634.0 cm???/min???m??? AV Area Cont Eq vti 2.2 cm??? AV Area Cont Eq pk 2.2 cm??? FINDINGS Left Ventricle Right Ventricle Right Atrium Left Atrium Mitral Valve Aortic Valve Aortic valve not well visualized. Aortic valve sclerosis. Moderate calcification. Trace aortic regurgitation. Mild aortic stenosis. Tricuspid Valve Pulmonic Valve Pericardium Aorta CONCLUSIONS Limited study to asses aortic valve only. The aortic valve was poorly visualized The aortic valve is sclerotic. It is mildly stenotic. The mean gradient was 10 mmHg Previewed by: Dr. Bairon Benitez MD (Electronically Signed) Final Date: 22 July 2023 06:55
--- NOTE | 2023-07-22 08:48 | P.GSCN ---
History of Present Illness Consult date: 07/22/23 (Pt presented) Reason for Consult: Pt presented with only seven lower teeth present and an upper full denture. Pt does NOT have a regular dentist, but plans to see one to get a lower denture. Radiographically, there is no sign of radiolucency suggesting any dental infe ction. Intra-orally, pt has a large cavity on tooth #22, and it was slightly sensitive to percussion. Pt stated tooth does not normally hurt. Pt needs to get that tooth extracted but can wait until after the surgery and after he is medically stable. Talked to patient about getting a lower partial and save other teeth except #22. Pt is clear from present dental infection. Ok to proceed with surgery from the dental aspect. Thank you for your kind referral. Past Medical History Past Medical History: GERD/Reflux, Hyperlipidemia, Hypertension History of Any Multi-Drug Resistant Organisms: None Reported Past Surgical History: Hernia Repair Past Anesthesia/Blood Transfusion Reactions: No Reported Reaction Past Psychological History: Depression Smoking Status: Current every day smoker Past Alcohol Use History: None Reported Additional Past Alcohol Use History / Comment(s): STARTED SMOKING AT AGE 15 QUIT ON AND OFF AND CURRENTLY SMOKING , SMOKES 1 PPD Past Drug Use History: None Reported - Past Family History Mother Family Medical History: Cancer Additional Family Medical History / Comment(s): Brain tumor Father Family Medical History: Myocardial Infarction (ME) Additional Family Medical History / Comment(s): at age 90 from a myocardial infarction Medications and Allergies Home Medications Medication Instructions Recorded Confirmed Type Atorvastatin [Lipitor] 20 mg PO HS 03/07/18 07/19/23 History Citalopram Hydrobromide [CeleXA] 20 mg PO DAILY 03/07/18 07/19/23 History atenoloL [Tenormin] 50 mg PO DAILY 03/07/18 07/19/23 History lisinopriL [Zestril] 20 mg PO DAILY 03/07/18 07/19/23 History Cholecalciferol [Vitamin D3 (25 50 mcg PO DAILY 12/11/21 07/19/23 History Mcg = 1000 Iu)] Omeprazole Magnesium [PriLOSEC] 20 mg PO DAILY 12/11/21 07/19/23 History predniSONE [Deltasone] 20 mg PO DAILY 07/19/23 07/19/23 History Allergies Allergy/AdvReac Type Severity Reaction Status Date / Time No Known Allergies Allergy Verified 07/19/23 15:12 Surgical - Exam Vital Signs Temp Pulse Resp BP Pulse Ox 97.9 F 72 18 152/83 93 L 07/19/23 12:01 07/19/23 12:01 07/19/23 12:01 07/19/23 12:01 07/19/23 12:01 Results - Labs 07/21/23 07:45 07/21/23 07:45 Abnormal Lab Results - Last 24 Hours (Table) 07/21/23 Range/Units 07:45 BUN 21 H (9-20) mg/dL Glucose 121 H (74-99) mg/dL Microbiology - Last 24 Hours (Table) 07/19/23 15:57 Blood Culture - Preliminary Blood 07/19/23 15:57 Blood Culture - Preliminary Blood 07/20/23 17:00 Nasal Screen MRSA/MSSA - Final Nasal Swab Diabetes panel 07/21/23 Range/Units 07:45 Sodium 137 (137-145) mmol/L Potassium 3.7 (3.5-5.1) mmol/L Chloride 102 (98-107) mmol/L Carbon Dioxide 24 (22-30) mmol/L BUN 21 H (9-20) mg/dL Creatinine 0.83 (0.66-1.25) mg/dL Glucose 121 H (74-99) mg/dL Calcium 9.0 (8.4-10.2) mg/dL Calcium panel 07/21/23 Range/Units 07:45 Calcium 9.0 (8.4-10.2) mg/dL Pituitary panel 07/21/23 Range/Units 07:45 Sodium 137 (137-145) mmol/L Potassium 3.7 (3.5-5.1) mmol/L Chloride 102 (98-107) mmol/L Carbon Dioxide 24 (22-30) mmol/L BUN 21 H (9-20) mg/dL Creatinine 0.83 (0.66-1.25) mg/dL Glucose 121 H (74-99) mg/dL Calcium 9.0 (8.4-10.2) mg/dL Adrenal panel 07/21/23 Range/Units 07:45 Sodium 137 (137-145) mmol/L Potassium 3.7 (3.5-5.1) mmol/L Chloride 102 (98-107) mmol/L Carbon Dioxide 24 (22-30) mmol/L BUN 21 H (9-20) mg/dL Creatinine 0.83 (0.66-1.25) mg/dL Glucose 121 H (74-99) mg/dL Calcium 9.0 (8.4-10.2) mg/dL
[2023-07-22] MEDS: ASPIRIN 81 MG PO SCH (09:03)
[2023-07-22] MEDS: lisinopriL 20 MG TAB PO SCH (09:03)
[2023-07-22] MEDS: atenoloL 50 MG TAB PO SCH (09:03)
[2023-07-22] MEDS: CITALOPRAM HYDROBROMIDE 20 MG TAB PO SCH (09:04)
[2023-07-22] MEDS: CHOLECALCIFEROL 25 MCG (1000 IU) TABLET PO SCH (09:04)
[2023-07-22] MEDS: SPIRONOLACTONE 25 MG TAB PO SCH (09:04)
[2023-07-22] MEDS: MUPIROCIN 2% OINT 22 GM TUBE NASAL SCH ×2 (09:04→20:09)
[2023-07-22] MEDS: NICOTINE 21MG/24HR PATCH TRANSDERM SCH (09:04)
--- NOTE | 2023-07-22 13:07 | P.PN ---
Subjective Progress Note Date: 07/22/23 PROGRESS NOTE The patient is a 73-year-old male with a known history of hypertension, hyperlipidemia who presented with symptoms of progressive dyspnea and chest tightness. He has no prior documented history of obstructive coronary artery disease. He has a history of chronic tobacco use. He had sudden onset worsening dyspnea and the chest tightness here in the emergency room he was in sinus mechanism with no acute ST segment changes. His lab data showed a troponin of 0.043. The patient has no recent cardiac workup. He denies any PND, orthopnea or peripheral edema, he denies any palpitation dizziness or syncope. He has no history of CHF but he was told that he has a heart murmur in the past. July 21: The patient underwent cardiac catheterization yesterday and was found to have severe triple vessel disease and severe mitral regurgitation with preserved systolic function. He is doing well this morning, he denies any chest discomfort, dizziness or palpitations. He continues to be in sinus mechanism. He is ambulating without difficulty. He is scheduled to be seen by cardiovascular surgery for CABG and mitral valve surgery. He will undergo a NICOLAS today to further evaluate his mitral valve apparatus. July 22: The patient feels well today, his breathing is stable. He denies any chest discomfort, dizziness or palpitations. He was evaluated by the cardiovascular surgery team and scheduled to undergo mitral, tricuspid valve surgery and coronary artery bypass grafting. He had a NICOLAS yesterday and it showed severe mitral regurgitation, moderate tricuspid regurgitation and severe pulmonary hypertension. He continues to be in sinus mechanism. Medications: Aspirin, Tenormin 50 mg daily, Lipitor 40 mg daily, Zestril 20 mg daily, Aldactone 25 mg daily PHYSICAL EXAMINATION: Blood pressure 129/70 heart rate 60 LUNGS: Clear to auscultation HEART: Regular rate and rhythm, S1, S2. No S3. Holosystolic murmur at the base and systolic ejection murmur ABDOMEN: Soft, nontender, no organomegaly EXTREMETIES: No edema, LAB: Pending IMPRESSION: 1. Severe triple vessel disease 2. Severe mitral regurgitation with moderate tricuspid regurgitation and severe pulmonary hypertension 3. Chronic tobacco use 4. Hypertension 5. Hyperlipidemia PLAN: 1. Continue present therapy 2. Follow renal functions 3. Plan for surgery on Tuesday Objective - Vital Signs Vital signs: Vital Signs Temp 98.4 F 07/22/23 09:10 Pulse 51 L 07/22/23 12:01 Resp 16 07/22/23 12:01 BP 95/53 07/22/23 12:01 Pulse Ox 97 07/22/23 12:01 FiO2 Intake & Output 07/21/23 07/22/23 07/22/23 18:59 06:59 18:59 Intake Total 440 10 360 Balance 440 10 360 Intake: IV 10 Invasive Line 1 10 Oral 440 360 Other: Voiding Method Toilet Toilet Toilet Urinal Urinal Urinal # Voids 2 2 - Labs CBC & Chem 7: 07/21/23 07:45 07/21/23 07:45 Labs: Microbiology - Last 24 Hours (Table) 07/19/23 15:57 Blood Culture - Preliminary Blood 07/19/23 15:57 Blood Culture - Preliminary Blood 07/20/23 17:00 Nasal Screen MRSA/MSSA - Final Nasal Swab
--- NOTE | 2023-07-22 14:22 | P.PN ---
Subjective Progress Note Date: 07/22/23 I am seeing this patient in new consultation today 07/21/2023 on the cardiac stepdown unit after being found to have multivessel coronary artery disease and severe mitral regurgitation, and is currently undergoing preoperative workup for possible open heart surgery. Patient is a 73-year-old white male with past medical history significant for hypertension, hyperlipidemia, known existing heart murmur, GERD, and chronic ongoing tobacco dependence smoking approximately 1 pack per day. Denies any history of pulmonary disease including COPD or asthma. He does not use any inhalers at home. His primary care provider is Dr. Holloway. Patient presented to the emergency room back on July 19 planing of shortness of breath, chest tightness, and lightheadedness that started approximately 2-3 days before arrival. He had a minimal nonproductive cough, but is not much different from his baseline. He denies any recent fever, chills, myalgias, hemoptysis, nausea, vomiting, diarrhea, heart palpitations, lower extremity swelling, presyncope or syncope. On arrival to the emergency room, a chest x-ray was completed in the emergency department which showed interstitial infiltrates, mid and lower lung zones bilaterally could reflect interstitial edema versus interstitial pneumonia. For further evaluation a CTA of the chest was completed for PE protocol which demonstrated no diagnostic evidence of pu lmonary embolism, COPD, pulmonary fibrosis, correlate for mild CHF, dense coronary artery atherosclerosis, incidental note of an abdominal aortic aneurysm measuring 3.3 cm, nonspecific mediastinal and hilar lymphadenopathy and prominent pulmonary artery which was possibly associated with pulmonary artery hypertension. A 12-lead EKG was completed which showed normal sinus rhythm at a rate of 66 bpm and a right bundle branch block. Troponins mildly elevated at 0.043. NT proBNP not particularly elevated at 546. Most recent CBC shows a WBC count of 11, hemoglobin 13.7, hematocrit 39.9, platelets 178. Most recent BMP shows sodium 136, potassium 3.9, chloride 103, serum bicarb 24, BUN 20, crea tinine 0.85, glucose 99. Patient was taken for heart catheterization yesterday which showed severe triple-vessel disease, severe mitral regurgitation, and mild to moderate aortic stenosis. Cardiothoracic services were consulted and recommendation for open heart surgery. Patient is currently sitting at the edge of the bed, on 3 L/m nasal cannula, in no acute distress. He is unsure if he wants to proceed with surgical revascularization. He is okay with proceeding with the preoperative workup. Bedside spirometry is scheduled. The patient is seen today 07/22/2023 in follow-up on the selective care unit. He is currently sitting up in bed. Awake and alert in no acute distress. He is maintaining O2 saturations in the 90s on 3 L/m per nasal cannula. He is pulling approximately 1200 ML's on his incentive spirometer. He continues to be worked up for possible bypass surgery along with mitral valve and tricuspid valve repairs. FEV1 value was 1.26 or 54% of predicted. NicoDerm patch remains in place. Objective - Vital Signs Vital signs: Vital Signs Temp 98.4 F 07/22/23 09:10 Pulse 51 L 07/22/23 12:01 Resp 16 07/22/23 12:01 BP 95/53 07/22/23 12:01 Pulse Ox 97 07/22/23 12:01 FiO2 Intake & Output 07/21/23 07/22/23 07/22/23 18:59 06:59 18:59 Intake Total 440 10 720 Balance 440 10 720 Intake: IV 10 Invasive Line 1 10 Oral 440 720 Other: Voiding Method Toilet Toilet Toilet Urinal Urinal Urinal # Voids 2 2 - Exam GENERAL EXAM: Alert, pleasant 73-year-old male, on 3 L nasal cannula, comfortable in no apparent distress. HEAD: Normocephalic and atraumatic EYES: Normal reaction of pupils, equal size. NOSE: Clear with pink turbinates. THROAT: No erythema or exudates. NECK: No masses, no JVD. CHEST: No chest wall deformity. LUNGS: Equal air entry without crackles, wheeze, rhonchi or dullness. No c onversational dyspnea. CVS: S1 and S2 normal with 3/6 systolic murmur, regular rhythm. No extra heart sounds ABDOMEN: No hepatosplenomegaly, active bowel sounds, no guarding or rigidity. SPINE: No scoliosis or deformity SKIN: No rashes CENTRAL NERVOUS SYSTEM: No focal deficits, tone is normal in all 4 extremities. EXTREMITIES: There is no peripheral edema, clubbing, or cyanosis. Peripheral pulses are intact. - Labs CBC & Chem 7: 07/21/23 07:45 07/21/23 07:45 Labs: Microbiology - Last 24 Hours (Table) 07/19/23 15:57 Blood Culture - Preliminary Blood 07/19/23 15:57 Blood Culture - Preliminary Blood 07/20/23 17:00 Nasal Screen MRSA/MSSA - Final Nasal Swab Assessment and Plan Assessment: Multi-vessel coronary artery disease and severe mitral regurgitation, being considered for open heart surgery with surgical revascularization and mitral valve replacement, however, the patient is unsure if he wants to proceed with this option. Exertional dyspnea, likely secondary to above. CTA of the chest was completed for PE protocol which demonstrated no diagnostic evidence of pulmonary embolism, COPD like changes, pulmonary fibrosis, trace bilateral pleural effusions, groundglass changes, posssibly mild venous congestion correlate for mild CHF exacerbation. Benign essential hypertension Hyperlipidemia Abdominal aortic aneurysm, measuring 3.3 cm incidentally found on chest CTA GERD Chronic ongoing nicotine dependence Plan: The patient was seen and evaluated Lips and medications reviewed Currently stable on 3 L nasal cannula Working well with the incentive spirometer Now considering surgery next week We will continue the current treatment plan Educated regarding the importance of complete smoking cessation NicoDerm patch in place We will continue to follow I have personally seen and examined the patient, performed the documentation and the assessment and plan as written. Number of minutes spent on the visit: 10.
--- NOTE | 2023-07-22 14:22 | P.PN ---
Subjective Progress Note Date: 07/22/23 Principal diagnosis: Multivessel coronary artery disease, severe eccentric mitral regurgitation with ruptured chordae and prolapse of the posterior mitral valve leaflet, and Mod[place] te tricuspid regurgitation with severe pulmonary hypertension. Past medical history significant for hypertension, hyperlipidemia, heart murmur, GERD, depression and chronic ongoing tobacco dependence in which she smokes 1 pack of cigarettes a day. The patient was seen and examined in follow-up today 07/22/2023 at his bedside on the cardiac stepdown unit. He is currently up ambulating in his room without difficulty, is awake, alert, oriented 3 and is in no acute apparent distress. The patient reports after a long discussion with his family he has decided to proceed with myocardial revascularization surgery, mitral valve repair/replacement, tricuspid valve repair, intraoperative transesophageal echocardiogram and exclusion of his left atrial appendage to be completed by Dr. Pura Mcintosh. The patient has been scheduled for surgery on 07/27/2023. Preoperative teaching has been reinforced with the patient and his family present at his bedside. The patient underwent a transesophageal echocardiogram yesterday performed by Dr. Higuera which demonstrated a moderately dilated left atrium, normal left ventricular size and systolic function, severe eccentric mitral valve regurgitation with ruptured chordae and prolapse of the posterior mitral valve leaflet, moderate tricuspid valve regurgitation with severe pulmonary hypertension, mild aortic valve regurgitation with mild to moderate aortic valve stenosis with fused cusps, mild atherosclerosis of the descending thoracic aorta, no pericardial effusion and no shunting across the intra-atrial septum. The patient is also been seen by dentist and was cleared from the dental aspect for surgery. Oxygen saturations are 99% on 3 L nasal cannula and his remote telemetry is showing 80 to BPM. He is achieving 1500 mL on his incentive spirometry with encouragement. He denies any complaints of shortness of breath or chest pain. Objective - Vital Signs Vital signs: Vital Signs Temp 98.4 F 07/22/23 09:10 Pulse 51 L 07/22/23 12:01 Resp 16 07/22/23 12:01 BP 95/53 07/22/23 12:01 Pulse Ox 97 07/22/23 12:01 FiO2 Intake & Output 07/21/23 07/22/23 07/22/23 18:59 06:59 18:59 Intake Total 440 10 720 Balance 440 10 720 Intake: IV 10 Invasive Line 1 10 Oral 440 720 Other: Voiding Method Toilet Toilet Toilet Urinal Urinal Urinal # Voids 2 2 - Exam CONSTITUTIONAL: Ambulating in his room on the cardiac stepdown unit, appears comfortable, cooperative, no apparent acute distress. HEENT: Neck is supple, no JVD, no lymphadenopathy. RESPIRATORY: Lungs sounds essentially clear throughout, diminished to his bilateral bases. Respirations are symmetrical and nonlabored. Currently on 3 L nasal cannula with oxygen saturations 99%. Able to achieve 1500 mL on their incentive spirometry. Strong cough. CARDIOVASCULAR: Regular rhythm and rate. S1 and S2 present, negative for S3, or gallop. Positive systolic murmur heard best to his right sternal border. GASTROINTESTINAL: Abdomen soft, nontender, nondistended. Active bowel sounds present 4 quadrants. Tolerating diet. Passing flatus. No guarding or rigidity. GENITOURINARY: Continues to void. INTEGUMENTARY: Skin is warm and dry with no evidence of clubbing or cyanosis. NEUROLOGIC: Cranial nerves II through XII intact. No focal deficits. MUSKULOSKELETAL: Able to move all extremities, strength equal bilaterallys. PSYCHIATRIC: Alert and oriented to person place and time, appropriate affect, intact judgment and insight. - Labs CBC & Chem 7: 07/21/23 07:45 07/21/23 07:45 Labs: Microbiology - Last 24 Hours (Table) 07/19/23 15:57 Blood Culture - Preliminary Blood 07/19/23 15:57 Blood Culture - Preliminary Blood 07/20/23 17:00 Nasal Screen MRSA/MSSA - Final Nasal Swab Assessment and Plan Assessment: Multivessel coronary artery disease Severe eccentric mitral valve regurgitation with ruptured chordae and prolapse of the posterior mitral valve leaflet on transesophageal echocardiogram Moderate tricuspid valve regurgitation with severe pulmonary hypertension on transesophageal echocardiogram Dyspnea on exertion, likely secondary to above Abdominal aortic aneurysm seen on cardiac catheterization History of hypertension History of hyperlipidemia Chronic ongoing tobacco dependence GERD History of depression Plan: Continue to reinforce preoperative teaching. Preoperative workup remains in progress. We will obtain a 5 m walk test was completed, time 1: 2.41 Seconds, time 2: 2.53 Seconds, time 3: 2.48 Seconds. An STS risk score has been calculated in discussed with the patient. Importance of smoking cessation has been reinforced with the patient. The patient has been scheduled for myocardial revascularization surgery, mitral valve repair/replacement, tricuspid valve repair, intraoperative transesophageal echocardiogram and exclusion of his left atrial appendage to be completed by Dr. Pura Mcintosh on 07/27/2023. Medical management and other comorbidities per primary care service. More recommendations to follow based on patient's clinical course. Time with Patient: Greater than 30
[2023-07-22] MEDS: SODIUM CHLORIDE 0.9% 1,000 ML IV SCH (15:29)
[2023-07-22] MEDS: ATORVASTATIN 40 MG TAB PO SCH (20:08)
[2023-07-22] MEDS: MELATONIN 3 MG TABLET PO PRN (21:43)
[2023-07-22] MEDS: ALPRAZolam 0.25 MG TAB PO PRN (21:43)
--- NOTE | 2023-07-23 06:54 | P.PN ---
Subjective Progress Note Date: 07/22/23 This is a 73-year-old male who presented to the emergency department with feeling of chest pain or shortness of breath. Patient reported some pressure and squeezing sensation along with a minimal cough and bloating. Patient reports he follows with Dr. Holloway in the outpatient setting with a past medical history of GERD, hyperlipidemia, hypertension, continues to smoke about 1 pack per day, has an occasional drink although not very often and denies any other illicit drug use. Chest x-ray in the ER shows interstitial infiltrates noted with mid and lower lung zones bilaterally that could reflect edema versus interstitial pneumonia. Patient underwent CTA of the chest showing no diagnostic evidence of PE, COPD with pulmonary fibrosis correlate for mild CHF with a dense coronary artery atherosclerosis noted along with incidental note of abdominal aortic aneurysm partially included measuring approximately 3.3 cm with nonspecific mediastinal and hilar lymphadenopathy. There is a prominent pulm onary artery that can be associated with pulmonary artery hypertension. 2-D echo was ordered and pending and was patient was admitted for chest pain for cardiology evaluation. Patient started on heparin as troponins was 0.031 and trending up at 0.043. Virology testing including influenza, RSV, and CoVid were all negative. WBC revealed a 10.8, hemoglobin 15.8, platelets 298, INR 1.0, sodium was 139 with a potassium of 3.9, BUN was 14 with creatinine of 0.86, total bili is 0.6, LFTs within normal limits, BNP was 546. Patient is currently maintained on 2 L of oxygen via nasal cannula for shortness of breath and oxygen saturations are 95-98% and patient reports he does not wear oxygen outpatient. Patient has been counseled extensively on complete tobacco cessation. 07/21/2023 Patient is seen and evaluated in follow-up with cardiology following along with CT surgery which has been consulted. Patient underwent cardiac catheterization showing triple-vessel heart disease and cardiothoracic has been consulted to discuss possible surgical intervention. Initiation of preoperative clearance has been ongoing and patient was scheduled to undergo NICOLAS today. Patient continues on 2 L via nasal cannula and reports his shortness of breath is improved and keeps asking if he could go home. Awaiting further evaluation from CT surgery and will discuss further with them about this. Family at the bedside with multiple questions and concerns were answered to the best of our ability. Patient's at bedside reports he smokes at least 2 packs a day of cigarettes and he mentioned only 1 pack per day and also drinks coffee from the time he wakes up until the time he goes to bed all day. Patient is afebrile denies chest pain or palpitations. No worsening shortness of breath noted. Patient was nothing by mouth for NICOLAS and diet resumed after procedure and tolerating with no reports of nausea or vomiting. Pro-calcitonin was normal and will discontinue empiric antibiotics. 07/22/2023 Patient is seen in follow-up today undergoing continued surgical work up for severe triple vessel disease. Patient continues to report he feels well and would like to go home prior to surgery. Patient is still requiring 2 liters via NC . Multiple medical consultations following. Tentative surgery on Tuesday. Per cardiology, no plans for discharge prior to surgery at this time. Smoking cessation reinforced and patient remains on nicotine patch. Patient is afebrile and denies any chest pain or shortness of breath. Tolerating diet with no reported nausea or vomiting. Review of systems: Constitutional: No reports of fatigue, fever, or chills Cardiovascular: No reports of chest pain or palpitations Respiratory: No reports of worsening shortness of breath or cough GI: No reports of nausea, vomiting, or diarrhea : No reports of dysuria or retention Neurovascular: No reports of weakness or numbness All medications have been reviewed PHYSICAL EXAMINATION: GENERAL: The patient is alert and oriented x4, Well developed, well nourished. HEENT: Pupils are round and equally reacting to light. EOMI. no scleral icterus. No conjunctival pallor. Normocephalic, atraumatic. No pharyngeal erythema. No thyromegaly. CARDIOVASCULAR: S1 and S2 muffled PULMONARY: diminished breath sounds bilaterally with no wheezing or rhonchi noted. ABDOMEN: soft. Nontender on exam. obese. non-distended, normoactive bowel sounds. No palpable organomegaly. MUSCULOSKELETAL: No joint swelling or deformity. EXTREMITIES: No cyanosis, clubbing, or pedal edema. NEUROLOGICAL: Gross neurological examination did not reveal any focal deficits. SKIN: No rashes. Assessment: Chest pain status post cardiac catheterization found to have severe triple- vessel disease and tentatively scheduled for surgery on Tuesday Acute hypoxic respiratory failure, possibly secondary to severe triple vessel disease Mild troponin elevation, most likely NSTEMI Mild leukocytosis, possibly reactive COPD, not in exacerbation Coronary artery atherosclerosis noted on CTA 3.3 cm abdominal aortic aneurysm noted on CTA Aortic valve murmur consistent with aortic stenosis, moderate History of GERD Hyperlipidemia history Hypertension history Continued ongoing nicotine dependence, smokes about 2 packs per day Excessive caffeine intake daily GI prophylaxis DVT prophylaxis Full code Plan: Patient was admitted for cardiology evaluation and underwent cardiac catheterization showing severe triple-vessel disease and cardiothoracic surgery following and scheduled for possible CABG with valve replacement on Tuesday Patient is currently on 2 L via nasal cannula and will wean FiO2 as tolerated. Home medications have been reviewed and resumed as appropriate Continue GI and DVT prophylaxis Encouraged increased activity as tolerated Continue telemetry monitoring Patient was started on empiric antibiotics in the ER as patient reported a slight cough, suspicion for any infection is extremely low and were ruled out. Pro-calcitonin was normal and antibiotics being discontinued Patient counseled extensively on smoking cessation. reports he smokes approximately 2 packs per day and drinks caffeinated coffee from the time he wakes up until bedtime. Patient has discussed further with family and is now agreeable to surgery on Tuesday. Patient is requesting to go home prior to procedure although has not been cleared by consultants. Overall prognosis is guarded at this time. The impression and plan of care has been dictated by Delia Oakes, nurse practitioner as directed. Dr. Joe MD I have performed a history and examination and MDM of this patient, discussed the same with the dictator, and agree with the dictator's assessment and plan as written ,documented as a scribe. Based on total visit time, I have performed more than 50% of the visit. Any additional findings or plans will be noted. Objective - Vital Signs Vital signs: Vital Signs Temp 98.4 F 07/22/23 09:10 Pulse 68 07/22/23 09:10 Resp 16 07/22/23 09:10 BP 129/76 07/22/23 09:10 Pulse Ox 99 07/22/23 09:10 FiO2 Intake & Output 07/21/23 07/22/23 07/22/23 18:59 06:59 18:59 Intake Total 440 10 360 Balance 440 10 360 Intake: IV 10 Invasive Line 1 10 Oral 440 360 Other: Voiding Method Toilet Toilet Urinal Urinal # Voids 2 2 - Labs CBC & Chem 7: 07/21/23 07:45 07/21/23 07:45 Labs: Abnormal Lab Results - Last 24 Hours (Table) 07/21/23 Range/Units 07:45 BUN 21 H (9-20) mg/dL Glucose 121 H (74-99) mg/dL Microbiology - Last 24 Hours (Table) 07/19/23 15:57 Blood Culture - Preliminary Blood 07/19/23 15:57 Blood Culture - Preliminary Blood 07/20/23 17:00 Nasal Screen MRSA/MSSA - Final Nasal Swab
[2023-07-23] MEDS: PANTOPRAZOLE 40 MG TABLET PO SCH (06:56)
[2023-07-23 08:11] LABS: African American GFR (CKD) >90 (>60 ml/min/1.73 sqM); Anion Gap 8 mmol/L; Blood Urea Nitrogen 22 mg/dL (9-20); Calcium 8.9 mg/dL (8.4-10.2); Carbon Dioxide 27 mmol/L (22-30); Chloride 100 mmol/L (98-107); Glucose 150 mg/dL (74-99); Non-African American GFR(CKD) 83 (>60 ml/min/1.73 sqM); Potassium 3.7 mmol/L (3.5-5.1); Sodium 135 mmol/L (137-145)
[2023-07-23] MEDS: NICOTINE 21MG/24HR PATCH TRANSDERM SCH (09:14)
[2023-07-23] MEDS: CHOLECALCIFEROL 25 MCG (1000 IU) TABLET PO SCH (09:14)
[2023-07-23] MEDS: ASPIRIN 81 MG PO SCH (09:15)
[2023-07-23] MEDS: CITALOPRAM HYDROBROMIDE 20 MG TAB PO SCH (09:15)
--- NOTE | 2023-07-23 09:33 | P.PN ---
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 Past medical history significant for hypertension, hyperlipidemia, heart murmur, GERD, depression and chronic ongoing tobacco dependence in which she smokes 1 pack of cigarettes a day. The patient was seen and examined in follow-up today 07/23/2023 at his bedside on the cardiac stepdown unit. He is currently sitting up to the bedside edge, is awake, alert, oriented 3 and is in no acute apparent distress. Denies any further complaints of shortness of breath, chest pain or chest pressure. Oxygen saturations are 96% on 2 L nasal cannula and he is achieving 2000 mL on his incentive spirometry with encouragement. The patient reports he has been up ambulating in his room independently and without difficulty. Remote telemetry showing sinus bradycardia with bundle branch block heart rate 60 BPM. He is scheduled for myocardial revascularization surgery with left internal mammary artery, endoscopic vein harvest, mitral valve repair/possible replacement and tricuspid valve repair to be performed by Dr. Pura Mcintosh on 07/27/2023. Preoperative teaching has been reinforced with the patient, and his questions answered to the best of my ability. Objective - Vital Signs Vital signs: Vital Signs Temp 97.8 F 07/23/23 04:00 Pulse 59 L 07/23/23 04:00 Resp 19 07/23/23 04:00 BP 95/50 07/23/23 04:00 Pulse Ox 97 07/23/23 08:11 FiO2 Intake & Output 07/22/23 07/23/23 07/23/23 18:59 06:59 18:59 Intake Total 1080 200 Output Total 240 Balance 1080 -40 Intake: Oral 1080 200 Output: Urine 240 Other: Voiding Method Toilet Toilet Urinal Urinal # Voids 2 1 - Exam CONSTITUTIONAL: Sitting up to the bedside edge on the cardiac stepdown unit, appears comfortable, cooperative, no apparent acute distress. HEENT: Neck is supple, no JVD, no lymphadenopathy. RESPIRATORY: Lungs sounds essentially clear throughout, diminished to his bila teral bases, few scattered faint crackles. Respirations are symmetrical and nonlabored. Currently on 2 L nasal cannula with oxygen saturations 96%. Able to achieve 2000 mL on their incentive spirometry. Strong cough. CARDIOVASCULAR: Regular rhythm and rate. S1 and S2 present, negative for S3, or gallop. Positive systolic murmur heard best to his right sternal border. GASTROINTESTINAL: Abdomen soft, nontender, nondistended. Active bowel sounds present 4 quadrants. Tolerating diet. Passing flatus. No guarding or rigidity. GENITOURINARY: Continues to void. INTEGUMENTARY: Skin is warm and dry with no evidence of clubbing or cyanosis. NEUROLOGIC: Cranial nerves II through XII intact. No focal deficits. MUSKULOSKELETAL: Able to move all extremities, strength equal bilateral. PSYCHIATRIC: Alert and oriented to person place and time, appropriate affect, intact judgment and insight. - Allied health notes Allied health notes reviewed: nursing - Labs CBC & Chem 7: 07/21/23 07:45 07/23/23 07:44 Labs: Abnormal Lab Results - Last 24 Hours (Table) 07/23/23 Range/Units 07:44 Sodium 135 L (137-145) mmol/L BUN 22 H (9-20) mg/dL Glucose 150 H (74-99) mg/dL Microbiology - Last 24 Hours (Table) 07/19/23 15:57 Blood Culture - Preliminary Blood 07/19/23 15:57 Blood Culture - Preliminary Blood Assessment and Plan Assessment: Multivessel coronary artery disease Severe eccentric mitral valve regurgitation with ruptured chordae and prolapse of the posterior mitral valve leaflet on transesophageal echocardiogram Moderate tricuspid valve regurgitation with severe pulmonary hypertension on transesophageal echocardiogram Dyspnea on exertion, likely secondary to above Abdominal aortic aneurysm seen on cardiac catheterization History of hypertension History of hyperlipidemia Chronic ongoing tobacco dependence GERD History of depression Plan: Continue to reinforce preoperative teaching. Preoperative workup remains in progress. 5 m walk test was completed yesterday 07/22/2023, time 1: 2.41 Seconds, time 2: 2.53 Seconds, time 3: 2.48 Seconds. Importance of smoking cessation has been reinforced with the patient. The patient has been scheduled for myocardial revascularization surgery, with left internal mammary artery, endoscopic greater saphenous vein harvest, mitral valve repair/replacement, tricuspid valve repair, intraoperative transesophageal echocardiogram and exclusion of his left atrial appendage to be completed by Dr. Pura Mcintosh on 07/27/2023. Medical management and other comorbidities per primary care service. He will be made nothing by mouth after midnight on 07/27/2023. More recommendations to follow based on patient's clinical course. Time with Patient: Less than 30
[2023-07-23] MEDS: MUPIROCIN 2% OINT 22 GM TUBE NASAL SCH ×2 (10:36→20:15)
[2023-07-23] MEDS: atenoloL 50 MG TAB PO SCH (10:37)
[2023-07-23] MEDS: SPIRONOLACTONE 25 MG TAB PO SCH (10:38)
[2023-07-23] MEDS: lisinopriL 20 MG TAB PO SCH (10:38)
[2023-07-23] MEDS: VITAMIN A 10,000 UNIT (3000 MCG) CAPSULE PO SCH (11:13)
--- NOTE | 2023-07-23 11:36 | P.PN ---
Subjective Progress Note Date: 07/23/23 PROGRESS NOTE The patient is a 73-year-old male with a known history of hypertension, hyperlipidemia who presented with symptoms of progressive dyspnea and chest tightness. He has no prior documented history of obstructive coronary artery disease. He has a history of chronic tobacco use. He had sudden onset worsening dyspnea and the chest tightness here in the emergency room he was in sinus mechanism with no acute ST segment changes. His lab data showed a troponin of 0.043. The patient has no recent cardiac workup. He denies any PND, orthopnea or peripheral edema, he denies any palpitation dizziness or syncope. He has no history of CHF but he was told that he has a heart murmur in the past. July 21: The patient underwent cardiac catheterization yesterday and was found to have severe triple vessel disease and severe mitral regurgitation with preserved systolic function. He is doing well this morning, he denies any chest discomfort, dizziness or palpitations. He continues to be in sinus mechanism. He is ambulating without difficulty. He is scheduled to be seen by cardiovascular surgery for CABG and mitral valve surgery. He will undergo a NICOLAS today to further evaluate his mitral valve apparatus. July 22: The patient feels well today, his breathing is stable. He denies any chest discomfort, dizziness or palpitations. He was evaluated by the cardiovascular surgery team and scheduled to undergo mitral, tricuspid valve surgery and coronary artery bypass grafting. He had a NICOLAS yesterday and it showed severe mitral regurgitation, moderate tricuspid regurgitation and severe pulmonary hypertension. He continues to be in sinus mechanism. July 23: The patient feels well this morning, he denies any chest discomfort, dizziness or palpitations. He is ambulating without difficulties. He denies any nausea or vomiting. He is scheduled to undergo CABG and mitral valve surgery on Tuesday. He is anxious to go home. Medications: Aspirin, Tenormin 50 mg daily, Lipitor 40 mg daily, Zestril 20 mg daily, Aldactone 25 mg daily PHYSICAL EXAMINATION: Blood pressure 97/50 heart rate 60 LUNGS: Clear to auscultation HEART: Regular rate and rhythm, S1, S2. No S3. Holosystolic murmur at the base and systolic ejection murmur ABDOMEN: Soft, nontender, no organomegaly EXTREMETIES: No edema, LAB: Pending IMPRESSION: 1. Severe triple vessel disease 2. Severe mitral regurgitation with moderate tricuspid regurgitation and severe pulmonary hypertension 3. Chronic tobacco use 4. Hypertension, now hypotensive 5. Hyperlipidemia PLAN: 1. Decrease lisinopril 2. Follow renal functions 3. Increase physical activity and follow blood pressure 4. If blood pressure stable and patient is asymptomatic he may be able to be discharged home tomorrow to be readmitted for surgical intervention on Tuesday Objective - Vital Signs Vital signs: Vital Signs Temp 98.5 F 07/23/23 08:20 Pulse 58 L 07/23/23 08:20 Resp 18 07/23/23 08:20 BP 97/55 07/23/23 08:20 Pulse Ox 98 07/23/23 08:20 FiO2 Intake & Output 07/22/23 07/23/23 07/23/23 18:59 06:59 18:59 Intake Total 1080 200 0 Output Total 240 Balance 1080 -40 0 Intake: Oral 1080 200 0 Output: Urine 240 Other: Voiding Method Toilet Toilet Toilet Urinal Urinal Urinal # Voids 2 1 - Labs CBC & Chem 7: 07/21/23 07:45 07/23/23 07:44 Labs: Abnormal Lab Results - Last 24 Hours (Table) 07/23/23 Range/Units 07:44 Sodium 135 L (137-145) mmol/L BUN 22 H (9-20) mg/dL Glucose 150 H (74-99) mg/dL Microbiology - Last 24 Hours (Table) 07/19/23 15:57 Blood Culture - Preliminary Blood 07/19/23 15:57 Blood Culture - Preliminary Blood
--- NOTE | 2023-07-23 11:59 | P.PN ---
Subjective Progress Note Date: 07/23/23 I am seeing this patient in new consultation today 07/21/2023 on the cardiac stepdown unit after being found to have multivessel coronary artery disease and severe mitral regurgitation, and is currently undergoing preoperative workup for possible open heart surgery. Patient is a 73-year-old white male with past medical history significant for hypertension, hyperlipidemia, known existing heart murmur, GERD, and chronic ongoing tobacco dependence smoking approximately 1 pack per day. Denies any history of pulmonary disease including COPD or asthma. He does not use any inhalers at home. His primary care provider is Dr. Holloway. Patient presented to the emergency room back on July 19 planing of shortness of breath, chest tightness, and lightheadedness that started approximately 2-3 days before arrival. He had a minimal nonproductive cough, but is not much different from his baseline. He denies any recent fever, chills, myalgias, hemoptysis, nausea, vomiting, diarrhea, heart palpitations, lower extremity swelling, presyncope or syncope. On arrival to the emergency room, a chest x-ray was completed in the emergency department which showed interstitial infiltrates, mid and lower lung zones bilaterally could reflect interstitial edema versus interstitial pneumonia. For further evaluation a CTA of the chest was completed for PE protocol which demonstrated no diagnostic evidence of pu lmonary embolism, COPD, pulmonary fibrosis, correlate for mild CHF, dense coronary artery atherosclerosis, incidental note of an abdominal aortic aneurysm measuring 3.3 cm, nonspecific mediastinal and hilar lymphadenopathy and prominent pulmonary artery which was possibly associated with pulmonary artery hypertension. A 12-lead EKG was completed which showed normal sinus rhythm at a rate of 66 bpm and a right bundle branch block. Troponins mildly elevated at 0.043. NT proBNP not particularly elevated at 546. Most recent CBC shows a WBC count of 11, hemoglobin 13.7, hematocrit 39.9, platelets 178. Most recent BMP shows sodium 136, potassium 3.9, chloride 103, serum bicarb 24, BUN 20, crea tinine 0.85, glucose 99. Patient was taken for heart catheterization yesterday which showed severe triple-vessel disease, severe mitral regurgitation, and mild to moderate aortic stenosis. Cardiothoracic services were consulted and recommendation for open heart surgery. Patient is currently sitting at the edge of the bed, on 3 L/m nasal cannula, in no acute distress. He is unsure if he wants to proceed with surgical revascularization. He is okay with proceeding with the preoperative workup. Bedside spirometry is scheduled. The patient is seen today 07/22/2023 in follow-up on the selective care unit. He is currently sitting up in bed. Awake and alert in no acute distress. He is maintaining O2 saturations in the 90s on 3 L/m per nasal cannula. He is pulling approximately 1200 ML's on his incentive spirometer. He continues to be worked up for possible bypass surgery along with mitral valve and tricuspid valve repairs. FEV1 value was 1.26 or 54% of predicted. NicoDerm patch remains in place. The patient is seen today 07/23/2023 in follow-up on the selective care unit. He is currently sitting up in a chair at the bedside. Awake and alert in no acute distress. Denies any worsening shortness of breath cough or congestion. Denies any chest pain. He is maintaining good O2 saturations up to 97% on room air. Afebrile. Sodium 135. Potassium 3.7. Bicarb 27. BUN 22. Creatinine 0.90. NicoDerm patch in place. Objective - Vital Signs Vital signs: Vital Signs Temp 97.9 F 07/23/23 11:40 Pulse 60 07/23/23 11:40 Resp 16 07/23/23 11:40 BP 93/51 07/23/23 11:40 Pulse Ox 97 07/23/23 11:40 FiO2 Intake & Output 07/22/23 07/23/23 07/23/23 18:59 06:59 18:59 Intake Total 1080 200 0 Output Total 240 Balance 1080 -40 0 Intake: Oral 1080 200 0 Output: Urine 240 Other: Voiding Method Toilet Toilet Toilet Urinal Urinal Urinal # Voids 2 1 - Exam GENERAL EXAM: Alert, pleasant 73-year-old male, on room air, comfortable in no apparent distress. HEAD: Normocephalic and atraumatic EYES: Normal reaction of pupils, equal size. NOSE: Clear with pink turbinates. THROAT: No erythema or exudates. NECK: No masses, no JVD. CHEST: No chest wall deformity. LUNGS: Equal air entry without crackles, wheeze, rhonchi or dullness. No conversational dyspnea. CVS: S1 and S2 normal with 3/6 systolic murmur, regular rhythm. No extra heart sounds ABDOMEN: No hepatosplenomegaly, active bowel sounds, no guarding or rigidity. SPINE: No scoliosis or deformity SKIN: No rashes CENTRAL NERVOUS SYSTEM: No focal deficits, tone is normal in all 4 extremities. EXTREMITIES: There is no peripheral edema, clubbing, or cyanosis. Peripheral pulses are intact. - Labs CBC & Chem 7: 07/21/23 07:45 07/23/23 07:44 Labs: Abnormal Lab Results - Last 24 Hours (Table) 07/23/23 Range/Units 07:44 Sodium 135 L (137-145) mmol/L BUN 22 H (9-20) mg/dL Glucose 150 H (74-99) mg/dL Microbiology - Last 24 Hours (Table) 07/19/23 15:57 Blood Culture - Preliminary Blood 07/19/23 15:57 Blood Culture - Preliminary Blood Assessment and Plan Assessment: Multi-vessel coronary artery disease and severe mitral regurgitation, being considered for open heart surgery with surgical revascularization and mitral valve replacement, however, the patient does wants to proceed with this option. Surgery is planned for 07/27/2023 Exertional dyspnea, likely secondary to above. CTA of the chest was completed for PE protocol which demonstrated no diagnostic evidence of pulmonary embolism, COPD like changes, pulmonary fibrosis, trace bilateral pleural effusions, groundglass changes, posssibly mild venous congestion correlate for mild CHF exacerbation. Benign essential hypertension Hyperlipidemia Abdominal aortic aneurysm, measuring 3.3 cm incidentally found on chest CTA GERD Chronic ongoing nicotine dependence Plan: The patient was seen and evaluated Labs and medications reviewed Currently stable on room air Working well with the incentive spirometer Planning for surgery next week We will continue the current treatment plan Again educated regarding the importance of complete smoking cessation NicoDerm patch in place We will continue to follow I have personally seen and examined the patient, performed the documentation and the assessment and plan as written. Number of minutes spent on the visit: 10.
[2023-07-23] MEDS: SODIUM CHLORIDE 0.9% 1,000 ML IV SCH (16:20)
[2023-07-23] MEDS: ALPRAZolam 0.25 MG TAB PO PRN (20:15)
[2023-07-23] MEDS: ATORVASTATIN 40 MG TAB PO SCH (20:15)
[2023-07-23] MEDS: MELATONIN 3 MG TABLET PO PRN (20:15)
[2023-07-24] MEDS: PANTOPRAZOLE 40 MG TABLET PO SCH (06:14)
[2023-07-24] MEDS: atenoloL 50 MG TAB PO SCH (08:14)
[2023-07-24] MEDS: ASPIRIN 81 MG PO SCH (08:14)
[2023-07-24] MEDS: NICOTINE 21MG/24HR PATCH TRANSDERM SCH (08:15)
[2023-07-24] MEDS: CHOLECALCIFEROL 25 MCG (1000 IU) TABLET PO SCH (08:15)
[2023-07-24] MEDS: SPIRONOLACTONE 25 MG TAB PO SCH (08:15)
[2023-07-24] MEDS: CITALOPRAM HYDROBROMIDE 20 MG TAB PO SCH (08:15)
[2023-07-24] MEDS: VITAMIN A 10,000 UNIT (3000 MCG) CAPSULE PO SCH (08:15)
[2023-07-24] MEDS: MUPIROCIN 2% OINT 22 GM TUBE NASAL SCH ×2 (08:20→20:03)
[2023-07-24] MEDS ORDERED: lisinopriL 5 MG TAB PO SCH (09:00)
[2023-07-24] MEDS ORDERED: METOPROLOL TARTRATE 12.5 MG TAB PO SCH ×2 (09:00→21:00)
--- NOTE | 2023-07-24 10:18 | P.PN ---
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 Past medical history significant for hypertension, hyperlipidemia, heart murmur, GERD, depression and chronic ongoing tobacco dependence in which she smokes 1 pack of cigarettes a day. The patient was seen and examined in follow-up today 07/24/2023 at his bedside on the cardiac stepdown unit. He is currently lying in bed, is awake, alert, oriented 3 and is in no acute apparent distress. Patient denies any complaints of pain or shortness of breath at this time, although reports that throughout the night he had a dream where he felt short of breath similar to his prehospitalization complaints. Oxygen saturations are 98% on 2 L nasal cannula. Remote telemetry showing sinus bradycardia with bundle branch block heart rate 56 BPM. He reports he has been up ambulating in his room and in the cardiac stepdown unit hallway without difficulty. He is scheduled for myocardial revascularization surgery, with left internal mammary artery, endoscopic greater saphenous vein harvest, mitral valve repair/replacement, tricuspid valve repair, intraoperative transesophageal echocardiogram and exclusion of his left atrial appendage to be completed by Dr. Pura Mcintosh on 07/27/2023. Preoperative testing has been completed, preoperative teaching has been reinforced with the patient and his questions were answered to the best of my ability. Objective - Vital Signs Vital signs: Vital Signs Temp 97.7 F 07/24/23 08:00 Pulse 75 07/24/23 08:00 Resp 18 07/24/23 08:00 BP 152/72 07/24/23 08:00 Pulse Ox 97 07/24/23 08:00 FiO2 Intake & Output 07/23/23 07/24/23 07/24/23 18:59 06:59 18:59 Intake Total 360 120 Output Total 0 Balance 360 120 Intake: Oral 360 120 Output: Gastric Drainage 0 Urine 0 Stool 0 Urine/Stool Mix 0 Emesis 0 Oral Regurgitation 0 Other 0 Other: Voiding Method Toilet Toilet Toilet Urinal Urinal Urinal # Voids 0 2 # Bowel Movements 0 - Exam CONSTITUTIONAL: Sitting up to the bedside edge on the cardiac stepdown unit, appears comfortable, cooperative, no apparent acute distress. HEENT: Neck is supple, no JVD, no lymphadenopathy. RESPIRATORY: Lungs sounds essentially clear throughout, diminished to his bilateral bases, few scattered faint crackles. Respirations are symmetrical and nonlabored. Currently on 2 L nasal cannula with oxygen saturations 98%. Able to achieve 2000 mL on their incentive spirometry. Strong cough. CARDIOVASCULAR: Regular rhythm and rate. S1 and S2 present, negative for S3, or gallop. Positive systolic murmur heard best to his right sternal border. GASTROINTESTINAL: Abdomen soft, nontender, nondistended. Active bowel sounds present 4 quadrants. Tolerating diet. Passing flatus. No guarding or rigidity. GENITOURINARY: Continues to void. INTEGUMENTARY: Skin is warm and dry with no evidence of clubbing or cyanosis. NEUROLOGIC: Cranial nerves II through XII intact. No focal deficits. MUSKULOSKELETAL: Able to move all extremities, strength equal bilateral. PSYCHIATRIC: Alert and oriented to person place and time, appropriate affect, intact judgment and insight. - Allied health notes Allied health notes reviewed: nursing - Labs CBC & Chem 7: 07/21/23 07:45 07/23/23 07:44 Assessment and Plan Assessment: Multivessel coronary artery disease Severe eccentric mitral valve regurgitation with ruptured chordae and prolapse of the posterior mitral valve leaflet on transesophageal echocardiogram Moderate tricuspid valve regurgitation with severe pulmonary hypertension on transesophageal echocardiogram Dyspnea on exertion, likely secondary to above Abdominal aortic aneurysm seen on cardiac catheterization History of hypertension History of hyperlipidemia Chronic ongoing tobacco dependence GERD History of depression Plan: Continue to reinforce preoperative teaching, questions answered to the best my ability. 5 m walk test was completed 07/22/2023, time 1: 2.41 Seconds, time 2: 2.53 Seconds, time 3: 2.48 Seconds. Importance of smoking cessation has been reinforced with the patient. The patient has been scheduled for myocardial revascularization surgery, with left internal mammary artery, endoscopic greater saphenous vein harvest, mitral valve repair/replacement, tricuspid valve repair, intraoperative transesophageal echocardiogram and exclusion of his left atrial appendage to be completed by Dr. Pura Mcintosh on 07/27/2023. Medical management and other comorbidities per primary care service. He will be made nothing by mouth after midnight on 07/27/2023. Discontinue lisinopril, avoid a score of 48 hours prior to surgery to avoid postoperative vaso-plegia. Discontinue atenolol and start metoprolol tartrate 12.5 mg by mouth twice a day with hold parameters. Vitamin A 20,000 units by mouth daily started yesterday as the patient was on prednisone preoperatively. More recommendations to follow based on patient's clinical course. Time with Patient: Less than 30
--- NOTE | 2023-07-24 11:04 | P.PN ---
Subjective Progress Note Date: 07/24/23 PROGRESS NOTE The patient is a 73-year-old male with a known history of hypertension, hyperlipidemia who presented with symptoms of progressive dyspnea and chest tightness. He has no prior documented history of obstructive coronary artery disease. He has a history of chronic tobacco use. He had sudden onset worsening dyspnea and the chest tightness here in the emergency room he was in sinus mechanism with no acute ST segment changes. His lab data showed a troponin of 0.043. The patient has no recent cardiac workup. He denies any PND, orthopnea or peripheral edema, he denies any palpitation dizziness or syncope. He has no history of CHF but he was told that he has a heart murmur in the past. July 21: The patient underwent cardiac catheterization yesterday and was found to have severe triple vessel disease and severe mitral regurgitation with preserved systolic function. He is doing well this morning, he denies any chest discomfort, dizziness or palpitations. He continues to be in sinus mechanism. He is ambulating without difficulty. He is scheduled to be seen by cardiovascular surgery for CABG and mitral valve surgery. He will undergo a NICOLAS today to further evaluate his mitral valve apparatus. July 22: The patient feels well today, his breathing is stable. He denies any chest discomfort, dizziness or palpitations. He was evaluated by the cardiovascular surgery team and scheduled to undergo mitral, tricuspid valve surgery and coronary artery bypass grafting. He had a NICOLAS yesterday and it showed severe mitral regurgitation, moderate tricuspid regurgitation and severe pulmonary hypertension. He continues to be in sinus mechanism. July 23: The patient feels well this morning, he denies any chest discomfort, dizziness or palpitations. He is ambulating without difficulties. He denies any nausea or vomiting. He is scheduled to undergo CABG and mitral valve surgery on Tuesday. He is anxious to go home. July 24: The patient had an episode of dyspnea yesterday, feels better today. He continues to be on oxygen. He denies any chest discomfort, dizziness or palpitations. He is ambulating. He denies any nausea or vomiting. He is scheduled to undergo surgery on Tuesday. Medications: Aspirin, metoprolol 12-1/2 mg twice a day, Lipitor 40 mg daily, Aldactone 25 mg daily PHYSICAL EXAMINATION: Blood pressure 152/70 heart rate 70 LUNGS: Clear to auscultation HEART: Regular rate and rhythm, S1, S2. No S3. Holosystolic murmur at the base and systolic ejection murmur ABDOMEN: Soft, nontender, no organomegaly EXTREMETIES: No edema, LAB: Pending IMPRESSION: 1. Severe triple vessel disease 2. Severe mitral regurgitation with moderate tricuspid regurgitation and severe pulmonary hypertension 3. Chronic tobacco use 4. Hypertension, 5. Hyperlipidemia PLAN: 1. Hold lisinopril preoperatively 2. Follow renal functions 3. Increase beta yamile 4. Continue present therapy, pending CABG on Tuesday his mitral valve and tricuspid valve surgery Objective - Vital Signs Vital signs: Vital Signs Temp 97.7 F 07/24/23 08:00 Pulse 75 07/24/23 08:00 Resp 18 07/24/23 08:00 BP 152/72 07/24/23 08:00 Pulse Ox 97 07/24/23 08:00 FiO2 Intake & Output 07/23/23 07/24/23 07/24/23 18:59 06:59 18:59 Intake Total 360 120 Output Total 0 Balance 360 120 Intake: Oral 360 120 Output: Gastric Drainage 0 Urine 0 Stool 0 Urine/Stool Mix 0 Emesis 0 Oral Regurgitation 0 Other 0 Other: Voiding Method Toilet Toilet Toilet Urinal Urinal Urinal # Voids 0 2 # Bowel Movements 0 - Labs CBC & Chem 7: 07/21/23 07:45 07/23/23 07:44
--- NOTE | 2023-07-24 11:05 | P.PN ---
Subjective Progress Note Date: 07/24/23 I am seeing this patient in new consultation today 07/21/2023 on the cardiac stepdown unit after being found to have multivessel coronary artery disease and severe mitral regurgitation, and is currently undergoing preoperative workup for possible open heart surgery. Patient is a 73-year-old white male with past medical history significant for hypertension, hyperlipidemia, known existing heart murmur, GERD, and chronic ongoing tobacco dependence smoking approximately 1 pack per day. Denies any history of pulmonary disease including COPD or asthma. He does not use any inhalers at home. His primary care provider is Dr. Holloway. Patient presented to the emergency room back on July 19 planing of shortness of breath, chest tightness, and lightheadedness that started approximately 2-3 days before arrival. He had a minimal nonproductive cough, but is not much different from his baseline. He denies any recent fever, chills, myalgias, hemoptysis, nausea, vomiting, diarrhea, heart palpitations, lower extremity swelling, presyncope or syncope. On arrival to the emergency room, a chest x-ray was completed in the emergency department which showed interstitial infiltrates, mid and lower lung zones bilaterally could reflect interstitial edema versus interstitial pneumonia. For further evaluation a CTA of the chest was completed for PE protocol which demonstrated no diagnostic evidence of pu lmonary embolism, COPD, pulmonary fibrosis, correlate for mild CHF, dense coronary artery atherosclerosis, incidental note of an abdominal aortic aneurysm measuring 3.3 cm, nonspecific mediastinal and hilar lymphadenopathy and prominent pulmonary artery which was possibly associated with pulmonary artery hypertension. A 12-lead EKG was completed which showed normal sinus rhythm at a rate of 66 bpm and a right bundle branch block. Troponins mildly elevated at 0.043. NT proBNP not particularly elevated at 546. Most recent CBC shows a WBC count of 11, hemoglobin 13.7, hematocrit 39.9, platelets 178. Most recent BMP shows sodium 136, potassium 3.9, chloride 103, serum bicarb 24, BUN 20, crea tinine 0.85, glucose 99. Patient was taken for heart catheterization yesterday which showed severe triple-vessel disease, severe mitral regurgitation, and mild to moderate aortic stenosis. Cardiothoracic services were consulted and recommendation for open heart surgery. Patient is currently sitting at the edge of the bed, on 3 L/m nasal cannula, in no acute distress. He is unsure if he wants to proceed with surgical revascularization. He is okay with proceeding with the preoperative workup. Bedside spirometry is scheduled. The patient is seen today 07/22/2023 in follow-up on the selective care unit. He is currently sitting up in bed. Awake and alert in no acute distress. He is maintaining O2 saturations in the 90s on 3 L/m per nasal cannula. He is pulling approximately 1200 ML's on his incentive spirometer. He continues to be worked up for possible bypass surgery along with mitral valve and tricuspid valve repairs. FEV1 value was 1.26 or 54% of predicted. NicoDerm patch remains in place. The patient is seen today 07/23/2023 in follow-up on the selective care unit. He is currently sitting up in a chair at the bedside. Awake and alert in no acute distress. Denies any worsening shortness of breath cough or congestion. Denies any chest pain. He is maintaining good O2 saturations up to 97% on room air. Afebrile. Sodium 135. Potassium 3.7. Bicarb 27. BUN 22. Creatinine 0.90. NicoDerm patch in place. The patient is seen today 07/24/2023 in follow-up on the selective care unit. Awake and alert in no acute distress. Sitting in bed. Denies any chest pain. No palpitations. No worsening shortness of breath or cough. He did have a nightmare and some confusion last evening. Oriented 3 today. Maintaining O2 saturations in the 90s on 2 L/m per nasal cannula. He is afebrile. Hemodynamically stable. NicoDerm patch in place. Objective - Vital Signs Vital signs: Vital Signs Temp 97.7 F 07/24/23 08:00 Pulse 75 07/24/23 08:00 Resp 18 07/24/23 08:00 BP 152/72 07/24/23 08:00 Pulse Ox 97 07/24/23 08:00 FiO2 Intake & Output 07/23/23 07/24/23 07/24/23 18:59 06:59 18:59 Intake Total 360 120 Output Total 0 Balance 360 120 Intake: Oral 360 120 Output: Gastric Drainage 0 Urine 0 Stool 0 Urine/Stool Mix 0 Emesis 0 Oral Regurgitation 0 Other 0 Other: Voiding Method Toilet Toilet Toilet Urinal Urinal Urinal # Voids 0 2 # Bowel Movements 0 - Exam GENERAL EXAM: Alert, pleasant 73-year-old male, sitting up at the bedside, on 2 L nasal cannula, comfortable in no apparent distress. HEAD: Normocephalic and atraumatic EYES: Normal reaction of pupils, equal size. NOSE: Clear with pink turbinates. THROAT: No erythema or exudates. NECK: No masses, no JVD. CHEST: No chest wall deformity. LUNGS: Equal air entry without crackles, wheeze, rhonchi or dullness. No conversational dyspnea. CVS: S1 and S2 normal with 3/6 systolic murmur, regular rhythm. No extra heart sounds ABDOMEN: No hepatosplenomegaly, active bowel sounds, no guarding or rigidity. SPINE: No scoliosis or deformity SKIN: No rashes CENTRAL NERVOUS SYSTEM: No focal deficits, tone is normal in all 4 extremities. EXTREMITIES: There is no peripheral edema, clubbing, or cyanosis. Peripheral pulses are intact. - Labs CBC & Chem 7: 07/21/23 07:45 07/23/23 07:44 Assessment and Plan Assessment: Multi-vessel coronary artery disease and severe mitral regurgitation, being considered for open heart surgery with surgical revascularization and mitral valve replacement, however, the patient does wants to proceed with this option. Surgery is planned for 07/27/2023 Exertional dyspnea, likely secondary to above. CTA of the chest was completed for PE protocol which demonstrated no diagnostic evidence of pulmonary embolism, COPD like changes, pulmonary fibrosis, trace bilateral pleural effusions, groundglass changes, posssibly mild venous congestion correlate for mild CHF ex acerbation. Benign essential hypertension Hyperlipidemia Abdominal aortic aneurysm, measuring 3.3 cm incidentally found on chest CTA GERD Chronic and ongoing nicotine dependence Plan: The patient was seen and evaluated Medications reviewed Working well with the incentive spirometer Planning for surgery 07/27/2023 Again educated regarding the importance of complete smoking cessation NicoDerm patch in place We will continue to follow I have personally seen and examined the patient, performed the documentation and the assessment and plan as written. Number of minutes spent on the visit: 10.
[2023-07-24 11:14] LABS: African American GFR (CKD) >90 (>60 ml/min/1.73 sqM); Anion Gap 5 mmol/L; Blood Urea Nitrogen 15 mg/dL (9-20); Calcium 9.2 mg/dL (8.4-10.2); Carbon Dioxide 29 mmol/L (22-30); Chloride 102 mmol/L (98-107); Glucose 127 mg/dL (74-99); Non-African American GFR(CKD) 89 (>60 ml/min/1.73 sqM); Potassium 4.1 mmol/L (3.5-5.1); Sodium 136 mmol/L (137-145)
[2023-07-24] MEDS: NITROGLYCERIN OINT 1 INCH/GM PACKET TOPICAL SCH ×3 (12:05→23:28)
[2023-07-24] MEDS: SODIUM CHLORIDE 0.9% 1,000 ML IV SCH (12:10)
[2023-07-24] MEDS: ATORVASTATIN 40 MG TAB PO SCH (20:02)
[2023-07-24] MEDS: METOPROLOL TARTRATE 25 MG TAB PO SCH (20:03)
--- NOTE | 2023-07-25 00:57 | P.PN ---
Subjective Progress Note Date: 07/23/23 This is a 73-year-old male who presented to the emergency department with feeling of chest pain or shortness of breath. Patient reported some pressure and squeezing sensation along with a minimal cough and bloating. Patient reports he follows with Dr. Holloway in the outpatient setting with a past medical history of GERD, hyperlipidemia, hypertension, continues to smoke about 1 pack per day, has an occasional drink although not very often and denies any other illicit drug use. Chest x-ray in the ER shows interstitial infiltrates noted with mid and lower lung zones bilaterally that could reflect edema versus interstitial pneumonia. Patient underwent CTA of the chest showing no diagnostic evidence of PE, COPD with pulmonary fibrosis correlate for mild CHF with a dense coronary artery atherosclerosis noted along with incidental note of abdominal aortic aneurysm partially included measuring approximately 3.3 cm with nonspecific mediastinal and hilar lymphadenopathy. There is a prominent pulmon seferino artery that can be associated with pulmonary artery hypertension. 2-D echo was ordered and pending and was patient was admitted for chest pain for cardiology evaluation. Patient started on heparin as troponins was 0.031 and trending up at 0.043. Virology testing including influenza, RSV, and CoVid were all negative. WBC revealed a 10.8, hemoglobin 15.8, platelets 298, INR 1.0, sodium was 139 with a potassium of 3.9, BUN was 14 with creatinine of 0.86, total bili is 0.6, LFTs within normal limits, BNP was 546. Patient is currently maintained on 2 L of oxygen via nasal cannula for shortness of breath and oxygen saturations are 95-98% and patient reports he does not wear oxygen outpatient. Patient has been counseled extensively on complete tobacco cessation. 07/21/2023 Patient is seen and evaluated in follow-up with cardiology following along with CT surgery which has been consulted. Patient underwent cardiac catheterization showing triple-vessel heart disease and cardiothoracic has been consulted to discuss possible surgical intervention. Initiation of preoperative clearance has been ongoing and patient was scheduled to undergo NICOLAS today. Patient continues on 2 L via nasal cannula and reports his shortness of breath is improved and keeps asking if he could go home. Awaiting further evaluation from CT surgery and will discuss further with them about this. Family at the bedside with multiple questions and concerns were answered to the best of our ability. Patient's at bedside reports he smokes at least 2 packs a day of cigarettes and he mentioned only 1 pack per day and also drinks coffee from the time he wakes up until the time he goes to bed all day. Patient is afebrile denies chest pain or palpitations. No worsening shortness of breath noted. Patient was nothing by mouth for NICOLAS and diet resumed after procedure and tolerating with no reports of nausea or vomiting. Pro-calcitonin was normal and will discontinue empiric antibiotics. 07/22/2023 Patient is seen in follow-up today undergoing continued surgical work up for severe triple vessel disease. Patient continues to report he feels well and would like to go home prior to surgery. Patient is still requiring 2 liters via NC of . Multiple medical consultations following. Tentative surgery on Tuesday. Per cardiology, no plans for discharge prior to surgery at this time. Smoking cessation reinforced and patient remains on nicotine patch. Patient is afebrile and denies any chest pain or shortness of breath. Tolerating diet with no reported nausea or vomiting. 07/23/2023 Patient is currently lying in bed. Awake alert and oriented x3. Able to ambulate in the room. No complaints of chest pain or shortness of breath. No nausea vomiting abdominal pain or diarrhea. Saturating at 97% on room air. Patient has been afebrile. No cough or sputum production. Laboratory data showed sodium 135 potassium 3.7 chloride 100 bicarb is 27 BUN 2020 creatinine 0.9 and blood sugars 150. Patient is being continued on aspirin and statin, metoprolol and Aldactone. Cardiology and CT surgery is on board. Patient is scheduled for coronary artery bypass graft on 07/27/2023. Current medications reviewed. Review of systems: Constitutional: No reports of fatigue, fever, or chills Cardiovascular: No reports of chest pain or palpitations Respiratory: No reports of worsening shortness of breath or cough GI: No reports of nausea, vomiting, or diarrhea : No reports of dysuria or retention Neurovascular: No reports of weakness or numbness All medications have been reviewed PHYSICAL EXAMINATION: GENERAL: The patient is alert and oriented x4, Well developed, well nourished. HEENT: Pupils are round and equally reacting to light. EOMI. no scleral icterus. No conjunctival pallor. Normocephalic, atraumatic. No pharyngeal erythema. No thyromegaly. CARDIOVASCULAR: S1 and S2 muffled PULMONARY: diminished breath sounds bilaterally with no wheezing or rhonchi noted. ABDOMEN: soft. Nontender on exam. obese. non-distended, normoactive bowel sounds. No palpable organomegaly. MUSCULOSKELETAL: No joint swelling or deformity. EXTREMITIES: No cyanosis, clubbing, or pedal edema. NEUROLOGICAL: Gross neurological examination did not reveal any focal deficits. SKIN: No rashes. Assessment: Chest pain status post cardiac catheterization found to have severe triple- vessel disease and tentatively scheduled for surgery on Tuesday Acute hypoxic respiratory failure, possibly secondary to severe triple vessel disease Mild troponin elevation, most likely NSTEMI Mild leukocytosis, possibly reactive COPD, not in exacerbation Coronary artery atherosclerosis noted on CTA 3.3 cm abdominal aortic aneurysm noted on CTA Aortic valve murmur consistent with aortic stenosis, moderate History of GERD Hyperlipidemia history Hypertension history Continued ongoing nicotine dependence, smokes about 2 packs per day Excessive caffeine intake daily GI prophylaxis DVT prophylaxis Full code Plan: Patient was admitted for cardiology evaluation and underwent cardiac catheterization showing severe triple-vessel disease and cardiothoracic surgery following and scheduled for possible CABG with valve replacement on Tuesday Patient is currently on 2 L via nasal cannula and will wean FiO2 as tolerated. Home medications have been reviewed and resumed as appropriate Continue GI and DVT prophylaxis Encouraged increased activity as tolerated Continue telemetry monitoring Patient was started on empiric antibiotics in the ER as patient reported a slight cough, suspicion for any infection is extremely low and were ruled out. Pro-calcitonin was normal and antibiotics being discontinued Patient counseled extensively on smoking cessation. reports he smokes approximately 2 packs per day and drinks caffeinated coffee from the time he wakes up until bedtime. Patient has discussed further with family and is now agreeable to surgery on Tuesday. Patient is requesting to go home prior to procedure although has not been cleared by consultants. Overall prognosis is guarded at this time. Objective - Vital Signs Vital signs: Vital Signs Temp 97.9 F 07/23/23 20:00 Pulse 62 07/23/23 20:00 Resp 19 07/23/23 20:00 BP 126/60 07/23/23 20:00 Pulse Ox 97 07/23/23 20:00 FiO2 Intake & Output 07/23/23 07/23/23 07/24/23 06:59 18:59 06:59 Intake Total 200 360 Output Total 240 0 Balance -40 360 Intake: Oral 200 360 Output: Gastric Drainage 0 Urine 240 0 Stool 0 Urine/Stool Mix 0 Emesis 0 Oral Regurgitation 0 Other 0 Other: Voiding Method Toilet Toilet Toilet Urinal Urinal Urinal # Voids 1 0 # Bowel Movements 0 - Labs CBC & Chem 7: 07/21/23 07:45 07/24/23 09:50 Labs: Abnormal Lab Results - Last 24 Hours (Table) 07/23/23 Range/Units 07:44 Sodium 135 L (137-145) mmol/L BUN 22 H (9-20) mg/dL Glucose 150 H (74-99) mg/dL Microbiology - Last 24 Hours (Table) 07/19/23 15:57 Blood Culture - Preliminary Blood 07/19/23 15:57 Blood Culture - Preliminary Blood
--- NOTE | 2023-07-25 00:59 | P.PN ---
Subjective Progress Note Date: 07/24/23 This is a 73-year-old male who presented to the emergency department with feeling of chest pain or shortness of breath. Patient reported some pressure and squeezing sensation along with a minimal cough and bloating. Patient reports he follows with Dr. Holloway in the outpatient setting with a past medical history of GERD, hyperlipidemia, hypertension, continues to smoke about 1 pack per day, has an occasional drink although not very often and denies any other illicit drug use. Chest x-ray in the ER shows interstitial infiltrates noted with mid and lower lung zones bilaterally that could reflect edema versus interstitial pneumonia. Patient underwent CTA of the chest showing no diagnostic evidence of PE, COPD with pulmonary fibrosis correlate for mild CHF with a dense coronary artery atherosclerosis noted along with incidental note of abdominal aortic aneurysm partially included measuring approximately 3.3 cm with nonspecific mediastinal and hilar lymphadenopathy. There is a prominent pulmon seferino artery that can be associated with pulmonary artery hypertension. 2-D echo was ordered and pending and was patient was admitted for chest pain for cardiology evaluation. Patient started on heparin as troponins was 0.031 and trending up at 0.043. Virology testing including influenza, RSV, and CoVid were all negative. WBC revealed a 10.8, hemoglobin 15.8, platelets 298, INR 1.0, sodium was 139 with a potassium of 3.9, BUN was 14 with creatinine of 0.86, total bili is 0.6, LFTs within normal limits, BNP was 546. Patient is currently maintained on 2 L of oxygen via nasal cannula for shortness of breath and oxygen saturations are 95-98% and patient reports he does not wear oxygen outpatient. Patient has been counseled extensively on complete tobacco cessation. 07/21/2023 Patient is seen and evaluated in follow-up with cardiology following along with CT surgery which has been consulted. Patient underwent cardiac catheterization showing triple-vessel heart disease and cardiothoracic has been consulted to discuss possible surgical intervention. Initiation of preoperative clearance has been ongoing and patient was scheduled to undergo NICOLAS today. Patient continues on 2 L via nasal cannula and reports his shortness of breath is improved and keeps asking if he could go home. Awaiting further evaluation from CT surgery and will discuss further with them about this. Family at the bedside with multiple questions and concerns were answered to the best of our ability. Patient's at bedside reports he smokes at least 2 packs a day of cigarettes and he mentioned only 1 pack per day and also drinks coffee from the time he wakes up until the time he goes to bed all day. Patient is afebrile denies chest pain or palpitations. No worsening shortness of breath noted. Patient was nothing by mouth for NICOLAS and diet resumed after procedure and tolerating with no reports of nausea or vomiting. Pro-calcitonin was normal and will discontinue empiric antibiotics. 07/22/2023 Patient is seen in follow-up today undergoing continued surgical work up for severe triple vessel disease. Patient continues to report he feels well and would like to go home prior to surgery. Patient is still requiring 2 liters via NC of . Multiple medical consultations following. Tentative surgery on Tuesday. Per cardiology, no plans for discharge prior to surgery at this time. Smoking cessation reinforced and patient remains on nicotine patch. Patient is afebrile and denies any chest pain or shortness of breath. Tolerating diet with no reported nausea or vomiting. 07/23/2023 Patient is currently lying in bed. Awake alert and oriented x3. Able to ambulate in the room. No complaints of chest pain or shortness of breath. No nausea vomiting abdominal pain or diarrhea. Saturating at 97% on room air. Patient has been afebrile. No cough or sputum production. Laboratory data showed sodium 135 potassium 3.7 chloride 100 bicarb is 27 BUN 2020 creatinine 0.9 and blood sugars 150. Patient is being continued on aspirin and statin, metoprolol and Aldactone. Cardiology and CT surgery is on board. Patient is scheduled for coronary artery bypass graft on 07/27/2023. 07/24/2023 Patient is currently in the telemetry unit. No complaints of chest pain or shortness of breath. No nausea vomiting abdominal pain or diarrhea. Able to ambulate in the room. Currently on oxygen at 2 L via nasal cannula and saturating at 100%. Patient has been afebrile. No acute overnight issues. Naya ramirez is using incentive spirometry. Scheduled for coronary revascularization surgery on 07/27/2023. Cardiology, pulmonary and CT surgery is on board. Current medications reviewed. Review of systems: Constitutional: No reports of fatigue, fever, or chills Cardiovascular: No reports of chest pain or palpitations Respiratory: No reports of worsening shortness of breath or cough GI: No reports of nausea, vomiting, or diarrhea : No reports of dysuria or retention Neurovascular: No reports of weakness or numbness All medications have been reviewed PHYSICAL EXAMINATION: GENERAL: The patient is alert and oriented x4, Well developed, well nourished. HEENT: Pupils are round and equally reacting to light. EOMI. no scleral icterus. No conjunctival pallor. Normocephalic, atraumatic. No pharyngeal erythema. No thyromegaly. CARDIOVASCULAR: S1 and S2 muffled PULMONARY: diminished breath sounds bilaterally with no wheezing or rhonchi noted. ABDOMEN: soft. Nontender on exam. obese. non-distended, normoactive bowel sounds. No palpable organomegaly. MUSCULOSKELETAL: No joint swelling or deformity. EXTREMITIES: No cyanosis, clubbing, or pedal edema. NEUROLOGICAL: Gross neurological examination did not reveal any focal deficits. SKIN: No rashes. Assessment: Chest pain status post cardiac catheterization found to have severe triple- vessel disease and tentatively scheduled for surgery on Tuesday Acute hypoxic respiratory failure, possibly secondary to severe triple vessel disease Mild troponin elevation, most likely NSTEMI Mild leukocytosis, possibly reactive COPD, not in exacerbation Coronary artery atherosclerosis noted on CTA 3.3 cm abdominal aortic aneurysm noted on CTA Aortic valve murmur consistent with aortic stenosis, moderate History of GERD Hyperlipidemia history Hypertension history Continued ongoing nicotine dependence, smokes about 2 packs per day Excessive caffeine intake daily GI prophylaxis DVT prophylaxis Full code Plan: Patient was admitted for cardiology evaluation and underwent cardiac catheterization showing severe triple-vessel disease and cardiothoracic surgery following and scheduled for possible CABG with valve replacement on Tuesday Patient is currently on 2 L via nasal cannula and will wean FiO2 as tolerated. Home medications have been reviewed and resumed as appropriate Continue GI and DVT prophylaxis Encouraged increased activity as tolerated Continue telemetry monitoring Patient was started on empiric antibiotics in the ER as patient reported a slight cough, suspicion for any infection is extremely low and were ruled out. Pro-calcitonin was normal and antibiotics being discontinued Patient counseled extensively on smoking cessation. reports he smokes approximately 2 packs per day and drinks caffeinated coffee from the time he wakes up until bedtime. Patient has discussed further with family and is now agreeable to surgery on Tuesday. Patient is requesting to go home prior to procedure although has not been cleared by consultants. Overall prognosis is guarded at this time. Objective - Vital Signs Vital signs: Vital Signs Temp 97.9 F 07/25/23 00:00 Pulse 62 07/25/23 00:00 Resp 16 07/25/23 00:00 BP 117/63 07/25/23 00:00 Pulse Ox 98 07/25/23 00:00 FiO2 Intake & Output 07/24/23 07/24/23 07/25/23 06:59 18:59 06:59 Intake Total 210 Output Total 0 Balance 210 Intake: Oral 210 Output: Gastric Drainage 0 Urine 0 Stool 0 Urine/Stool Mix 0 Emesis 0 Oral Regurgitation 0 Other 0 Other: Voiding Method Toilet Toilet Toilet Urinal Urinal Urinal # Voids 2 0 # Bowel Movements 0 - Labs CBC & Chem 7: 07/21/23 07:45 07/24/23 09:50 Labs: Abnormal Lab Results - Last 24 Hours (Table) 07/24/23 Range/Units 09:50 Sodium 136 L (137-145) mmol/L Glucose 127 H (74-99) mg/dL
[2023-07-25] MEDS: PANTOPRAZOLE 40 MG TABLET PO SCH (06:38)
[2023-07-25] MEDS: CHOLECALCIFEROL 25 MCG (1000 IU) TABLET PO SCH (08:50)
[2023-07-25] MEDS: CITALOPRAM HYDROBROMIDE 20 MG TAB PO SCH (08:50)
[2023-07-25] MEDS: METOPROLOL TARTRATE 25 MG TAB PO SCH ×2 (08:50→20:35)
[2023-07-25] MEDS: ASPIRIN 81 MG PO SCH (08:50)
[2023-07-25] MEDS: SPIRONOLACTONE 25 MG TAB PO SCH (08:50)
[2023-07-25] MEDS: NITROGLYCERIN OINT 1 INCH/GM PACKET TOPICAL SCH ×3 (08:51→23:53)
[2023-07-25] MEDS: NICOTINE 21MG/24HR PATCH TRANSDERM SCH (08:51)
[2023-07-25] MEDS: VITAMIN A 10,000 UNIT (3000 MCG) CAPSULE PO SCH (08:51)
[2023-07-25] MEDS: MUPIROCIN 2% OINT 22 GM TUBE NASAL SCH ×2 (08:51→20:35)
[2023-07-25] MEDS ORDERED: MD COMMUNICATION TO PHARMACY 1 EACH MISC PO ONE ×4 (09:13)
--- NOTE | 2023-07-25 09:36 | P.PN ---
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 Past medical history significant for hypertension, hyperlipidemia, heart murmur, GERD, depression and chronic ongoing tobacco dependence in which she smokes 1 pack of cigarettes a day. The patient was seen and examined in follow-up today 07/25/2023 at his bedside on the cardiac stepdown unit. Currently he is lying in bed, is awake, alert, oriented 3 and is in no acute apparent distress. The patient reports he had an episode last night where he woke up from sleep and felt short of breath and states he felt out of sorts. Denies any complaints of shortness of breath or chest pain/chest pressure at this time. Oxygen saturations are 97% on 2 L nasal cannula and he is achieving 2001 L on his incentive spirometry with encourag ement. Remote telemetry showing normal sinus rhythm with right bundle branch block heart rate 62 BPM. He reports he has been up ambulating in the cardiac stepdown unit hallway and in his room without difficulty. Preoperative teaching has been reinforced with the patient as he is scheduled for myocardial revascularization surgery, with left internal mammary artery, endoscopic greater saphenous vein harvest, mitral valve repair/replacement, tricuspid valve repair, intraoperative transesophageal echocardiogram and exclusion of his left atrial appendage to be completed by Dr. Pura Mcintosh on 07/27/2023. Questions were answered to the best of my ability. Objective - Vital Signs Vital signs: Vital Signs Temp 97.9 F 07/25/23 00:00 Pulse 75 07/25/23 03:42 Resp 20 07/25/23 03:42 BP 144/75 07/25/23 03:42 Pulse Ox 96 07/25/23 07:37 FiO2 Intake & Output 07/24/23 07/25/23 07/25/23 18:59 06:59 18:59 Intake Total 210 110 Output Total 0 Balance 210 110 Intake: Oral 210 110 Output: Gastric Drainage 0 Urine 0 Stool 0 Urine/Stool Mix 0 Emesis 0 Oral Regurgitation 0 Other 0 Other: Voiding Method Toilet Toilet Urinal Urinal # Voids 0 2 # Bowel Movements 0 - Exam CONSTITUTIONAL: Sitting up to the bedside edge on the cardiac stepdown unit, appears comfortable, cooperative, no apparent acute distress. HEENT: Neck is supple, no JVD, no lymphadenopathy. RESPIRATORY: Lungs sounds essentially clear throughout, diminished to his bilateral bases, few scattered faint crackles. Respirations are symmetrical and nonlabored. Currently on 2 L nasal cannula with oxygen saturations 97%. Able to achieve 2000 mL on their incentive spirometry. Strong cough. CARDIOVASCULAR: Regular rhythm and rate. S1 and S2 present, negative for S3, or gallop. Positive systolic murmur 3/6. GASTROINTESTINAL: Abdomen soft, nontender, nondistended. Active bowel sounds present 4 quadrants. Tolerating diet. Passing flatus. No guarding or rigidity. GENITOURINARY: Continues to void. INTEGUMENTARY: Skin is warm and dry with no evidence of clubbing or cyanosis. NEUROLOGIC: Cranial nerves II through XII intact. No focal deficits. MUSKULOSKELETAL: Able to move all extremities, strength equal bilateral. PSYCHIATRIC: Alert and oriented to person place and time, appropriate affect, intact judgment and insight. - Allied health notes Allied health notes reviewed: nursing - Labs CBC & Chem 7: 07/21/23 07:45 07/24/23 09:50 Labs: Abnormal Lab Results - Last 24 Hours (Table) 07/24/23 Range/Units 09:50 Sodium 136 L (137-145) mmol/L Glucose 127 H (74-99) mg/dL Microbiology - Last 24 Hours (Table) 07/19/23 15:57 Blood Culture - Final Blood 07/19/23 15:57 Blood Culture - Final Blood Assessment and Plan Assessment: Multivessel coronary artery disease Severe eccentric mitral valve regurgitation with ruptured chordae and prolapse of the posterior mitral valve leaflet on transesophageal echocardiogram Moderate tricuspid valve regurgitation with severe pulmonary hypertension on transesophageal echocardiogram Dyspnea on exertion, likely secondary to above Abdominal aortic aneurysm seen on cardiac catheterization History of hypertension History of hyperlipidemia Chronic ongoing tobacco dependence GERD History of depression Plan: Continue to reinforce preoperative teaching, questions answered to the best my ability. 5 m walk test was completed 07/22/2023, time 1: 2.41 Seconds, time 2: 2.53 S econds, time 3: 2.48 Seconds. Importance of smoking cessation has been reinforced with the patient. The patient has been scheduled for myocardial revascularization surgery, with left internal mammary artery, endoscopic greater saphenous vein harvest, mitral valve repair/replacement, tricuspid valve repair, intraoperative transesophageal echocardiogram and exclusion of his left atrial appendage to be completed by Dr. Pura Mcintosh on 07/27/2023. Medical management and other comorbidities per primary care service. He will be made nothing by mouth after midnight on 07/27/2023. Continue to hold Jose inhibitor/ARB to avoid postoperative vaso-plegia. Continue to optimize medical management with aspirin, statin and beta yamile. Continue Vitamin A 20,000 units by mouth daily as the patient was on prednisone preoperatively as an outpatient. More recommendations to follow based on patient's clinical course. Time with Patient: Greater than 30
[2023-07-25 10:24] LABS: African American GFR (CKD) >90 (>60 ml/min/1.73 sqM); Anion Gap 7 mmol/L; Blood Urea Nitrogen 19 mg/dL (9-20); Calcium 9.1 mg/dL (8.4-10.2); Carbon Dioxide 28 mmol/L (22-30); Chloride 99 mmol/L (98-107); Glucose 113 mg/dL (74-99); Non-African American GFR(CKD) 85 (>60 ml/min/1.73 sqM); Potassium 4.3 mmol/L (3.5-5.1); Sodium 134 mmol/L (137-145)
--- NOTE | 2023-07-25 11:10 | P.PN ---
Subjective Progress Note Date: 07/25/23 PROGRESS NOTE The patient is a 73-year-old male with a known history of hypertension, hyperlipidemia who presented with symptoms of progressive dyspnea and chest tightness. He has no prior documented history of obstructive coronary artery disease. He has a history of chronic tobacco use. He had sudden onset worsening dyspnea and the chest tightness here in the emergency room he was in sinus mechanism with no acute ST segment changes. His lab data showed a troponin of 0.043. The patient has no recent cardiac workup. He denies any PND, orthopnea or peripheral edema, he denies any palpitation dizziness or syncope. He has no history of CHF but he was told that he has a heart murmur in the past. July 21: The patient underwent cardiac catheterization yesterday and was found to have severe triple vessel disease and severe mitral regurgitation with preserved systolic function. He is doing well this morning, he denies any chest discomfort, dizziness or palpitations. He continues to be in sinus mechanism. He is ambulating without difficulty. He is scheduled to be seen by cardiovascular surgery for CABG and mitral valve surgery. He will undergo a NICOLAS today to further evaluate his mitral valve apparatus. July 22: The patient feels well today, his breathing is stable. He denies any chest discomfort, dizziness or palpitations. He was evaluated by the cardiovascular surgery team and scheduled to undergo mitral, tricuspid valve surgery and coronary artery bypass grafting. He had a NICOLAS yesterday and it showed severe mitral regurgitation, moderate tricuspid regurgitation and severe pulmonary hypertension. He continues to be in sinus mechanism. July 23: The patient feels well this morning, he denies any chest discomfort, dizziness or palpitations. He is ambulating without difficulties. He denies any nausea or vomiting. He is scheduled to undergo CABG and mitral valve surgery on Tuesday. He is anxious to go home. July 24: The patient had an episode of dyspnea yesterday, feels better today. He continues to be on oxygen. He denies any chest discomfort, dizziness or palpitations. He is ambulating. He denies any nausea or vomiting. He is scheduled to undergo surgery on Tuesday. July 25: The patient is feeling well today, he is ambulating without difficulties. He denies any chest discomfort to my dizziness or palpitations. He continues to be in sinus mechanism. Hemodynamically he stable. He denies any nausea or vomiting. Medications: Aspirin, metoprolol 25 mg twice a day, Lipitor 40 mg daily, Aldactone 25 mg daily, Nitropaste 1 inch every 8 hours PHYSICAL EXAMINATION: Blood pressure 119/60 heart rate 70 LUNGS: Clear to auscultation HEART: Regular rate and rhythm, S1, S2. No S3. Holosystolic murmur at the base and systolic ejection murmur ABDOMEN: Soft, nontender, no organomegaly EXTREMETIES: No edema, LAB: Potassium 4.3, creatinine 0.87, BUN 19 IMPRESSION: 1. Severe triple vessel disease 2. Severe mitral regurgitation with moderate tricuspid regurgitation and severe pulmonary hypertension 3. Chronic tobacco use 4. Hypertension, 5. Hyperlipidemia PLAN: 1. Increase physical activity 2. Continue present therapy 3. Proceed with CABG and mitral and tricuspid valve on Tuesday Objective - Vital Signs Vital signs: Vital Signs Temp 98.8 F 07/25/23 08:00 Pulse 79 07/25/23 08:15 Resp 18 07/25/23 08:15 BP 119/64 07/25/23 08:00 Pulse Ox 96 07/25/23 08:00 FiO2 Intake & Output 07/24/23 07/25/23 07/25/23 18:59 06:59 18:59 Intake Total 210 110 Output Total 0 Balance 210 110 Intake: Oral 210 110 Output: Gastric Drainage 0 Urine 0 Stool 0 Urine/Stool Mix 0 Emesis 0 Oral Regurgitation 0 Other 0 Other: Voiding Method Toilet Toilet Toilet Urinal Urinal Urinal # Voids 0 2 # Bowel Movements 0 - Labs CBC & Chem 7: 07/21/23 07:45 07/25/23 09:02 Labs: Abnormal Lab Results - Last 24 Hours (Table) 07/24/23 07/25/23 Range/Units 09:50 09:02 Sodium 136 L 134 L (137-145) mmol/L Glucose 127 H 113 H (74-99) mg/dL Microbiology - Last 24 Hours (Table) 07/19/23 15:57 Blood Culture - Final Blood 07/19/23 15:57 Blood Culture - Final Blood
--- NOTE | 2023-07-25 11:30 | P.PN ---
Subjective Progress Note Date: 07/25/23 I am seeing this patient in new consultation today 07/21/2023 on the cardiac stepdown unit after being found to have multivessel coronary artery disease and severe mitral regurgitation, and is currently undergoing preoperative workup for possible open heart surgery. Patient is a 73-year-old white male with past medical history significant for hypertension, hyperlipidemia, known existing heart murmur, GERD, and chronic ongoing tobacco dependence smoking approximately 1 pack per day. Denies any history of pulmonary disease including COPD or asthma. He does not use any inhalers at home. His primary care provider is Dr. Holloawy. Patient presented to the emergency room back on July 19 planing of shortness of breath, chest tightness, and lightheadedness that started approximately 2-3 days before arrival. He had a minimal nonproductive cough, but is not much different from his baseline. He denies any recent fever, chills, myalgias, hemoptysis, nausea, vomiting, diarrhea, heart palpitations, lower extremity swelling, presyncope or syncope. On arrival to the emergency room, a chest x-ray was completed in the emergency department which showed interstitial infiltrates, mid and lower lung zones bilaterally could reflect interstitial edema versus interstitial pneumonia. For further evaluation a CTA of the chest was completed for PE protocol which demonstrated no diagnostic evidence of pu lmonary embolism, COPD, pulmonary fibrosis, correlate for mild CHF, dense coronary artery atherosclerosis, incidental note of an abdominal aortic aneurysm measuring 3.3 cm, nonspecific mediastinal and hilar lymphadenopathy and prominent pulmonary artery which was possibly associated with pulmonary artery hypertension. A 12-lead EKG was completed which showed normal sinus rhythm at a rate of 66 bpm and a right bundle branch block. Troponins mildly elevated at 0.043. NT proBNP not particularly elevated at 546. Most recent CBC shows a WBC count of 11, hemoglobin 13.7, hematocrit 39.9, platelets 178. Most recent BMP shows sodium 136, potassium 3.9, chloride 103, serum bicarb 24, BUN 20, crea tinine 0.85, glucose 99. Patient was taken for heart catheterization yesterday which showed severe triple-vessel disease, severe mitral regurgitation, and mild to moderate aortic stenosis. Cardiothoracic services were consulted and recommendation for open heart surgery. Patient is currently sitting at the edge of the bed, on 3 L/m nasal cannula, in no acute distress. He is unsure if he wants to proceed with surgical revascularization. He is okay with proceeding with the preoperative workup. Bedside spirometry is scheduled. The patient is seen today 07/22/2023 in follow-up on the selective care unit. He is currently sitting up in bed. Awake and alert in no acute distress. He is maintaining O2 saturations in the 90s on 3 L/m per nasal cannula. He is pulling approximately 1200 ML's on his incentive spirometer. He continues to be worked up for possible bypass surgery along with mitral valve and tricuspid valve repairs. FEV1 value was 1.26 or 54% of predicted. NicoDerm patch remains in place. The patient is seen today 07/23/2023 in follow-up on the selective care unit. He is currently sitting up in a chair at the bedside. Awake and alert in no acute distress. Denies any worsening shortness of breath cough or congestion. Denies any chest pain. He is maintaining good O2 saturations up to 97% on room air. Afebrile. Sodium 135. Potassium 3.7. Bicarb 27. BUN 22. Creatinine 0.90. NicoDerm patch in place. The patient is seen today 07/24/2023 in follow-up on the selective care unit. Awake and alert in no acute distress. Sitting in bed. Denies any chest pain. No palpitations. No worsening shortness of breath or cough. He did have a nightmare and some confusion last evening. Oriented 3 today. Maintaining O2 saturations in the 90s on 2 L/m per nasal cannula. He is afebrile. Hemodynamically stable. NicoDerm patch in place. The patient is seen today 07/25/2023 in follow-up on the selective care unit. He is ambulating in his room. Awake and alert in no acute distress. Denies any chest pain. Denies any worsening shortness of breath, cough or congestion. He is maintaining good O2 saturations in the 90s on 2 L/m per nasal cannula. Afebrile. Hemodynamically stable. Sodium 134. Potassium 4.3. Bicarb 28. BUN 19. Creatinine 0.87. Glucose 113. NicoDerm patch remains in place. Objective - Vital Signs Vital signs: Vital Signs Temp 98.8 F 07/25/23 08:00 Pulse 79 07/25/23 08:15 Resp 18 07/25/23 08:15 BP 119/64 07/25/23 08:00 Pulse Ox 96 07/25/23 08:00 FiO2 Intake & Output 07/24/23 07/25/23 07/25/23 18:59 06:59 18:59 Intake Total 210 110 Output Total 0 Balance 210 110 Intake: Oral 210 110 Output: Gastric Drainage 0 Urine 0 Stool 0 Urine/Stool Mix 0 Emesis 0 Oral Regurgitation 0 Other 0 Other: Voiding Method Toilet Toilet Toilet Urinal Urinal Urinal # Voids 0 2 # Bowel Movements 0 - Exam GENERAL EXAM: Alert, oriented 73-year-old male, on 2 L nasal cannula, comfortable in no apparent distress. HEAD: Normocephalic and atraumatic EYES: Normal reaction of pupils, equal size. NOSE: Clear with pink turbinates. THROAT: No erythema or exudates. NECK: No masses, no JVD. CHEST: No chest wall deformity. LUNGS: Equal air entry without crackles, wheeze, rhonchi or dullness. No conversational dyspnea. CVS: S1 and S2 normal with 3/6 systolic murmur, regular rhythm. No extra heart sounds ABDOMEN: No hepatosplenomegaly, active bowel sounds, no guarding or rigidity. SPINE: No scoliosis or deformity SKIN: No rashes CENTRAL NERVOUS SYSTEM: No focal deficits, tone is normal in all 4 extremities. EXTREMITIES: There is no peripheral edema, clubbing, or cyanosis. Peripheral pulses are intact. - Labs CBC & Chem 7: 07/21/23 07:45 07/25/23 09:02 Labs: Abnormal Lab Results - Last 24 Hours (Table) 07/25/23 Range/Units 09:02 Sodium 134 L (137-145) mmol/L Glucose 113 H (74-99) mg/dL Microbiology - Last 24 Hours (Table) 07/19/23 15:57 Blood Culture - Final Blood 07/19/23 15:57 Blood Culture - Final Blood Assessment and Plan Assessment: Multi-vessel coronary artery disease and severe mitral regurgitation, being considered for open heart surgery with surgical revascularization and mitral valve replacement, however, the patient does wants to proceed with this option. Surgery is planned for 07/27/2023 Exertional dyspnea, likely secondary to above. CTA of the chest was completed for PE protocol which demonstrated no diagnostic evidence of pulmonary embolism, COPD like changes, pulmonary fibrosis, trace bilateral pleural effusions, groundglass changes, posssibly mild venous congestion correlate for mild CHF exacerbation. Benign essential hypertension Hyperlipidemia Abdominal aortic aneurysm, measuring 3.3 cm incidentally found on chest CTA GERD Chronic and ongoing nicotine dependence Plan: The patient was seen and evaluated Medications and labs reviewed Working well with the incentive spirometer NicoDerm patch in place We will continue to follow I have personally seen and examined the patient, performed the documentation and the assessment and plan as written. Number of minutes spent on the visit: 10.
[2023-07-25] MEDS: SODIUM CHLORIDE 0.9% 1,000 ML IV SCH (17:04)
[2023-07-25] MEDS: ATORVASTATIN 40 MG TAB PO SCH (20:35)
[2023-07-25] MEDS: MELATONIN 3 MG TABLET PO PRN (20:35)
[2023-07-25] MEDS: ALPRAZolam 0.25 MG TAB PO PRN (20:35)
--- NOTE | 2023-07-26 05:01 | P.PN ---
Subjective Progress Note Date: 07/25/23 This is a 73-year-old male who presented to the emergency department with feeling of chest pain or shortness of breath. Patient reported some pressure and squeezing sensation along with a minimal cough and bloating. Patient reports he follows with Dr. Holloway in the outpatient setting with a past medical history of GERD, hyperlipidemia, hypertension, continues to smoke about 1 pack per day, has an occasional drink although not very often and denies any other illicit drug use. Chest x-ray in the ER shows interstitial infiltrates noted with mid and lower lung zones bilaterally that could reflect edema versus interstitial pneumonia. Patient underwent CTA of the chest showing no diagnostic evidence of PE, COPD with pulmonary fibrosis correlate for mild CHF with a dense coronary artery atherosclerosis noted along with incidental note of abdominal aortic aneurysm partially included measuring approximately 3.3 cm with nonspecific mediastinal and hilar lymphadenopathy. There is a prominent pulm onary artery that can be associated with pulmonary artery hypertension. 2-D echo was ordered and pending and was patient was admitted for chest pain for cardiology evaluation. Patient started on heparin as troponins was 0.031 and trending up at 0.043. Virology testing including influenza, RSV, and CoVid were all negative. WBC revealed a 10.8, hemoglobin 15.8, platelets 298, INR 1.0, sodium was 139 with a potassium of 3.9, BUN was 14 with creatinine of 0.86, total bili is 0.6, LFTs within normal limits, BNP was 546. Patient is currently maintained on 2 L of oxygen via nasal cannula for shortness of breath and oxygen saturations are 95-98% and patient reports he does not wear oxygen outpatient. Patient has been counseled extensively on complete tobacco cessation. 07/21/2023 Patient is seen and evaluated in follow-up with cardiology following along with CT surgery which has been consulted. Patient underwent cardiac catheterization showing triple-vessel heart disease and cardiothoracic has been consulted to discuss possible surgical intervention. Initiation of preoperative clearance has been ongoing and patient was scheduled to undergo NICOLAS today. Patient continues on 2 L via nasal cannula and reports his shortness of breath is improved and keeps asking if he could go home. Awaiting further evaluation from CT surgery and will discuss further with them about this. Family at the bedside with multiple questions and concerns were answered to the best of our ability. Patient's at bedside reports he smokes at least 2 packs a day of cigarettes and he mentioned only 1 pack per day and also drinks coffee from the time he wakes up until the time he goes to bed all day. Patient is afebrile denies chest pain or palpitations. No worsening shortness of breath noted. Patient was nothing by mouth for NICOLAS and diet resumed after procedure and tolerating with no reports of nausea or vomiting. Pro-calcitonin was normal and will discontinue empiric antibiotics. 07/22/2023 Patient is seen in follow-up today undergoing continued surgical work up for severe triple vessel disease. Patient continues to report he feels well and would like to go home prior to surgery. Patient is still requiring 2 liters via NC of . Multiple medical consultations following. Tentative surgery on Tuesday. Per cardiology, no plans for discharge prior to surgery at this time. Smoking cessation reinforced and patient remains on nicotine patch. Patient is afebrile and denies any chest pain or shortness of breath. Tolerating diet with no reported nausea or vomiting. 07/23/2023 Patient is currently lying in bed. Awake alert and oriented x3. Able to ambulate in the room. No complaints of chest pain or shortness of breath. No nausea vomiting abdominal pain or diarrhea. Saturating at 97% on room air. Patient has been afebrile. No cough or sputum production. Laboratory data showed sodium 135 potassium 3.7 chloride 100 bicarb is 27 BUN 2020 creatinine 0.9 and blood sugars 150. Patient is being continued on aspirin and statin, metoprolol and Aldactone. Cardiology and CT surgery is on board. Patient is scheduled for coronary artery bypass graft on 07/27/2023. 07/24/2023 Patient is currently in the telemetry unit. No complaints of chest pain or shortness of breath. No nausea vomiting abdominal pain or diarrhea. Able to ambulate in the room. Currently on oxygen at 2 L via nasal cannula and saturating at 100%. Patient has been afebrile. No acute overnight issues. P atient is using incentive spirometry. Scheduled for coronary revascularization surgery on 07/27/2023. Cardiology, pulmonary and CT surgery is on board. 07/25/2023 Patient is seen in follow-up this morning continued on 2 L via nasal cannula with good oxygen saturations and takes off frequently. Patient has been up walking around and labs within normal limits. Patient is using incentive spirometer as instructed and following heart healthy diet. Planning on CABG with valve repair or replacement on Tuesday with cardiothoracic surgery. Patient is currently afebrile with no reports of chest pain or worsening shortness of breath. Patient is tolerating diet and denies nausea or vomiting. Review of systems: Constitutional: No reports of fatigue, fever, or chills Cardiovascular: No reports of chest pain or palpitations Respiratory: No reports of worsening shortness of breath or cough GI: No reports of nausea, vomiting, or diarrhea : No reports of dysuria or retention Neurovascular: No reports of weakness or numbness All medications have been reviewed PHYSICAL EXAMINATION: GENERAL: The patient is alert and oriented x4, Well developed, well nourished. HEENT: Pupils are round and equally reacting to light. EOMI. no scleral icterus. No conjunctival pallor. Normocephalic, atraumatic. No pharyngeal erythema. No thyromegaly. CARDIOVASCULAR: S1 and S2 muffled PULMONARY: diminished breath sounds bilaterally with no wheezing or rhonchi noted. ABDOMEN: soft. Nontender on exam. obese. non-distended, normoactive bowel sounds. No palpable organomegaly. MUSCULOSKELETAL: No joint swelling or deformity. EXTREMITIES: No cyanosis, clubbing, or pedal edema. NEUROLOGICAL: Gross neurological examination did not reveal any focal deficits. SKIN: No rashes. Assessment: Chest pain status post cardiac catheterization found to have severe triple- vessel disease and tentatively scheduled for surgery on Tuesday Acute hypoxic respiratory failure, secondary to severe triple vessel disease Mild troponin elevation, most likely NSTEMI Mild leukocytosis, possibly reactive COPD, not in exacerbation Coronary artery atherosclerosis noted on CTA 3.3 cm abdominal aortic aneurysm noted on CTA Aortic valve murmur consistent with aortic stenosis, moderate History of GERD Hyperlipidemia history Hypertension history Continued ongoing nicotine dependence, smokes about 2 packs per day Excessive caffeine intake daily GI prophylaxis DVT prophylaxis Full code Plan: Patient was admitted for cardiology evaluation and underwent cardiac catheterization showing severe triple-vessel disease and cardiothoracic surgery following and scheduled for possible CABG with valve replacement on Tuesday Patient is currently on 2 L via nasal cannula and will wean FiO2 as tolerated. Home medications have been reviewed and resumed as appropriate Continue GI and DVT prophylaxis Encouraged increased activity as tolerated Continue telemetry monitoring Complete tobacco cessation and excessive caffeine use has been discussed extensively Overall prognosis is guarded at this time. The impression and plan of care has been dictated by Delia Oakes, nurse practitioner as directed. Dr. Joe MD I have performed a history and examination and MDM of this patient, discussed the same with the dictator, and agree with the dictator's assessment and plan as written ,documented as a scribe. Based on total visit time, I have performed more than 50% of the visit. Any additional findings or plans will be noted. Objective - Vital Signs Vital signs: Vital Signs Temp 98.4 F 07/25/23 11:30 Pulse 61 07/25/23 11:30 Resp 18 07/25/23 14:39 BP 138/66 07/25/23 11:30 Pulse Ox 97 07/25/23 11:30 FiO2 Intake & Output 07/24/23 07/25/23 07/25/23 18:59 06:59 18:59 Intake Total 210 110 Output Total 0 Balance 210 110 Intake: Oral 210 110 Output: Gastric Drainage 0 Urine 0 Stool 0 Urine/Stool Mix 0 Emesis 0 Oral Regurgitation 0 Other 0 Other: Voiding Method Toilet Toilet Toilet Urinal Urinal Urinal # Voids 0 2 # Bowel Movements 0 - Labs CBC & Chem 7: 07/21/23 07:45 07/25/23 09:02 Labs: Abnormal Lab Results - Last 24 Hours (Table) 07/25/23 Range/Units 09:02 Sodium 134 L (137-145) mmol/L Glucose 113 H (74-99) mg/dL Microbiology - Last 24 Hours (Table) 07/19/23 15:57 Blood Culture - Final Blood 07/19/23 15:57 Blood Culture - Final Blood
[2023-07-26] MEDS: PANTOPRAZOLE 40 MG TABLET PO SCH (06:10)
[2023-07-26] MEDS: SPIRONOLACTONE 25 MG TAB PO SCH (08:10)
[2023-07-26] MEDS: METOPROLOL TARTRATE 25 MG TAB PO SCH ×2 (08:10→20:56)
[2023-07-26] MEDS: VITAMIN A 10,000 UNIT (3000 MCG) CAPSULE PO SCH (08:10)
[2023-07-26] MEDS: CITALOPRAM HYDROBROMIDE 20 MG TAB PO SCH (08:10)
[2023-07-26] MEDS: NITROGLYCERIN OINT 1 INCH/GM PACKET TOPICAL SCH ×2 (08:11→15:07)
[2023-07-26] MEDS: NICOTINE 21MG/24HR PATCH TRANSDERM SCH (08:11)
[2023-07-26] MEDS: CHOLECALCIFEROL 25 MCG (1000 IU) TABLET PO SCH (08:11)
[2023-07-26] MEDS: ASPIRIN 81 MG PO SCH (08:11)
[2023-07-26 08:12] LABS: Basophils % (A) 0 %; Eosinophils % (A) 0 %; HCT 30.9 % (39.0-53.0); HGB 10.4 gm/dL (13.0-17.5); Lymphocytes # (A) 0.4 k/uL (1.0-4.8); Lymphocytes % (A) 7 %; MCHC 33.6 g/dL (31.0-37.0); MCV 95.2 fL (80.0-100.0); Mean Platelet Volume 8.4; Monocytes # (A) 0.4 k/uL (0-1.0); Monocytes % (A) 7 %; Neutrophils # (A) 4.5 k/uL (1.3-7.7); Neutrophils % (A) 85 %; Platelet Count 162 k/uL (150-450); RBC 3.25 m/uL (4.30-5.90); RDW 14.5 % (11.5-15.5); WBC 5.4 k/uL (3.8-10.6)
[2023-07-26] MEDS: SODIUM CHLORIDE 0.9% 1,000 ML IV SCH (08:18)
[2023-07-26 08:30] LABS: ALT 23 U/L (4-49); AST 37 U/L (17-59); African American GFR (CKD) >90 (>60 ml/min/1.73 sqM); Albumin 3.7 g/dL (3.5-5.0); Alkaline Phosphatase 89 U/L (38-126); Anion Gap 5 mmol/L; Blood Urea Nitrogen 21 mg/dL (9-20); Calcium 8.8 mg/dL (8.4-10.2); Carbon Dioxide 29 mmol/L (22-30); Chloride 98 mmol/L (98-107); Glucose 123 mg/dL (74-99); Magnesium 1.8 mg/dL (1.6-2.3); Non-African American GFR(CKD) 85 (>60 ml/min/1.73 sqM); Potassium 4.3 mmol/L (3.5-5.1); Sodium 132 mmol/L (137-145); Total Bilirubin 1.4 mg/dL (0.2-1.3); Total Protein 6.7 g/dL (6.3-8.2)
--- NOTE | 2023-07-26 08:37 | XR ---
EXAMINATION TYPE: XR chest 2V DATE OF EXAM: 07/26/2023 COMPARISON: 07/19/2023 HISTORY: 73-year-old male preoperative for cardiac surgery TECHNIQUE: PA and lateral views FINDINGS: Heart mildly enlarged. Perihilar interstitial opacities are redemonstrated. More patchy density left mid and lower lung. Hyperinflation. No sizable pleural effusion. IMPRESSION: COPD with superimposed interstitial infiltrates, possible interstitial pulmonary edema. Slightly wors ened left mid and lower lung.
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
[2023-07-26] MEDS ORDERED: FUROSEMIDE 10 MG/ML 4 ML VIAL IV STA (10:20)
[2023-07-26] MEDS ORDERED: POTASSIUM CHLORIDE ER 10 MEQ TAB.ER.PRT PO STA (10:20)
--- NOTE | 2023-07-26 10:21 | P.PN ---
Subjective Progress Note Date: 07/26/23 Principal diagnosis: Multivessel coronary artery disease, severe eccentric mitral regurgitation with ruptured chordae and prolapse of the posterior mitral valve leaflet, and Modera te tricuspid regurgitation with severe pulmonary hypertension. Past medical history significant for hypertension, hyperlipidemia, heart murmur, GERD, depression and chronic ongoing tobacco dependence in which she smokes 1 pack of cigarettes a day. Patient was seen and examined in follow-up today 07/26/2023 at his bedside on the cardiac stepdown unit. Currently he is sitting up to bedside edge, is awake, alert, oriented 3 and is in no acute distress. He is tolerating his breakfast, denies any complaints of shortness of breath, chest pain/chest pressure, nausea or vomiting. The patient reports that he had a fall last night and bumped his nose. He currently has a and date on the bridge of his nose. Oxygen saturations are 98% on 2 L nasal cannula and he is achieving 1500 mL on his incentive spirometry with encouragement. Remote telemetry showing normal sinus rhythm with right bundle branch block heart rate 64 BPM. He is scheduled for myocardial revascularization surgery, , with left internal mammary artery, endoscopic greater saphenous vein harvest,, possible left radial artery endoscopic harvest, mitral valve repair/replacement, tricuspid valve repair, intraoperative transesophageal echocardiogram and exclusion of his left atrial appendage to be completed by Dr. Pura Mcintosh tomorrow 07/27/2023. Chest x-ray and laboratory results were reviewed. Objective - Vital Signs Vital signs: Vital Signs Temp 98.2 F 07/25/23 20:00 Pulse 64 07/26/23 03:32 Resp 16 07/26/23 03:32 BP 135/66 07/26/23 06:05 Pulse Ox 93 L 07/26/23 03:32 FiO2 Intake & Output 07/25/23 07/26/23 07/26/23 18:59 06:59 18:59 Intake Total 110 200 Balance 110 200 Intake: Oral 110 200 Other: Voiding Method Toilet Toilet Urinal Urinal # Voids 2 1 - Exam CONSTITUTIONAL: Sitting up to the bedside edge on the cardiac stepdown unit, appears comfortable, cooperative, no apparent acute distress. HEENT: Neck is supple, no JVD, no lymphadenopathy. RESPIRATORY: Lungs sounds essentially clear throughout, diminished to his bilateral bases, few scattered faint crackles. Respirations are symmetrical and nonlabored. Currently on 2 L nasal cannula with oxygen saturations 98%. Able to achieve 1500 mL on their incentive spirometry. Strong cough. CARDIOVASCULAR: Regular rhythm and rate. S1 and S2 present, negative for S3, or gallop. Positive systolic murmur 3/6. GASTROINTESTINAL: Abdomen soft, nontender, nondistended. Active bowel sounds present 4 quadrants. Tolerating diet. Passing flatus. No guarding or rigidity. GENITOURINARY: Continues to void. INTEGUMENTARY: Skin is warm and dry with no evidence of clubbing or cyanosis. Band-Aid in place to the bridge of his nose. NEUROLOGIC: Cranial nerves II through XII intact. No focal deficits. MUSKULOSKELETAL: Able to move all extremities, strength equal bilateral. PSYCHIATRIC: Alert and oriented to person place and time, appropriate affect, intact judgment and insight. - Allied health notes Allied health notes reviewed: nursing - Labs CBC & Chem 7: 07/26/23 07:32 07/26/23 07:32 Labs: Abnormal Lab Results - Last 24 Hours (Table) 07/25/23 07/26/23 07/26/23 Range/Units 09:02 07:32 07:32 RBC 3.25 L (4.30-5.90) m/uL Hgb 10.4 L (13.0-17.5) gm/dL Hct 30.9 L (39.0-53.0) % Lymphocytes # 0.4 L (1.0-4.8) k/uL Sodium 134 L 132 L (137-145) mmol/L BUN 21 H (9-20) mg/dL Glucose 113 H 123 H (74-99) mg/dL Total Bilirubin 1.4 H (0.2-1.3) mg/dL - Imaging and Cardiology Chest x-ray: report reviewed, image reviewed Assessment and Plan Assessment: Multivessel coronary artery disease Severe eccentric mitral valve regurgitation with ruptured chordae and prolapse of the posterior mitral valve leaflet on transesophageal echocardiogram Moderate tricuspid valve regurgitation with severe pulmonary hypertension on transesophageal echocardiogram Dyspnea on exertion, likely secondary to above Abdominal aortic aneurysm seen on cardiac catheterization History of hypertension History of hyperlipidemia Chronic ongoing tobacco dependence GERD History of depression Plan: Continue to reinforce preoperative teaching, questions answered to the best my ability. 5 m walk test was completed 07/22/2023, time 1: 2.41 Seconds, time 2: 2.53 Seconds, time 3: 2.48 Seconds. Importance of smoking cessation has been reinforced with the patient. The patient has been scheduled for myocardial revascularization surgery, with left internal mammary artery, endoscopic greater saphenous vein harvest, possible left radial artery endoscopic harvest, mitral valve repair/replacement, tricuspid valve repair, intraoperative transesophageal echocardiogram and exclusion of his left atrial appendage to be completed by Dr. Pura Mcintosh on 07/27/2023. Medical management and other comorbidities per primary care service. He will be made nothing by mouth after midnight on 07/27/2023. Continue to hold Jose inhibitor/ARB to avoid postoperative vaso-plegia. Continue to optimize medical management with aspirin, statin and beta yamile. Continue Vitamin A 20,000 units by mouth daily as the patient was on prednisone preoperatively as an outpatient. Lasix 40 mg IV 1 now and potassium 10 mEq by mouth 1 now. More recommendations to follow based on patient's clinical course. Time with Patient: Greater than 30
[2023-07-26] MEDS: ASCORBIC ACID 500 MG TAB PO SCH (11:17)
[2023-07-26] MEDS: FERROUS SULFATE 325 MG TAB PO SCH (11:17)
--- NOTE | 2023-07-26 13:09 | P.PN ---
Subjective Progress Note Date: 07/26/23 Principal diagnosis: Coronary artery disease. The patient is seen today 07/22/2023 in follow-up on the selective care unit. He is currently sitting up in bed. Awake and alert in no acute distress. He is maintaining O2 saturations in the 90s on 3 L/m per nasal cannula. He is pulling approximately 1200 ML's on his incentive spirometer. He continues to be worked up for possible bypass surgery along with mitral valve and tricuspid valve repairs. FEV1 value was 1.26 or 54% of predicted. NicoDerm patch remains in place. The patient is seen today 07/23/2023 in follow-up on the selective care unit. He is currently sitting up in a chair at the bedside. Awake and alert in no acute distress. Denies any worsening shortness of breath cough or congestion. Denies any chest pain. He is maintaining good O2 saturations up to 97% on room air. Afebrile. Sodium 135. Potassium 3.7. Bicarb 27. BUN 22. Creatinine 0.90. NicoDerm patch in place. The patient is seen today 07/24/2023 in follow-up on the selective care unit. Awake and alert in no acute distress. Sitting in bed. Denies any chest pain. No palpitations. No worsening shortness of breath or cough. He did have a nightmare and some confusion last evening. Oriented 3 today. Maintaining O2 saturations in the 90s on 2 L/m per nasal cannula. He is afebrile. Hemodynamically stable. NicoDerm patch in place. The patient is seen today 07/25/2023 in follow-up on the selective care unit. He is ambulating in his room. Awake and alert in no acute distress. Denies any chest pain. Denies any worsening shortness of breath, cough or congestion. He is maintaining good O2 saturations in the 90s on 2 L/m per nasal cannula. Afebrile. Hemodynamically stable. Sodium 134. Potassium 4.3. Bicarb 28. BUN 19. Creatinine 0.87. Glucose 113. NicoDerm patch remains in place. Progress note dated 07/26/2023. The patient is seen today in room 356. The patient is scheduled to have bypass grafting, on July 27. Currently he is on 2 L of oxygen. No IV fluids. He is sitting at the bedside. White count 5.4, hemoglobin 10.4, hematocrit 30.9, with a normal platelet count. Sodium 132, potassium 4.3, chlorides 98, CO2 29, BUN 21, creatinine 0.85. Chest x-ray shows changes of COPD, with mild interstitial pulmonary edema. Objective - Vital Signs Vital signs: Vital Signs Temp 98.1 F 07/26/23 11:32 Pulse 58 L 07/26/23 11:32 Resp 18 07/26/23 11:32 BP 106/59 07/26/23 11:32 Pulse Ox 96 07/26/23 11:32 FiO2 Intake & Output 07/25/23 07/26/23 07/26/23 18:59 06:59 18:59 Intake Total 110 440 Balance 110 440 Weight 72.575 kg Intake: Oral 110 440 Other: Voiding Method Toilet Toilet Toilet Urinal Urinal Urinal # Voids 2 1 1 - Exam No acute distress, oriented 3. Currently on 2 L of oxygen. HEENT examination is grossly unremarkable. Mucous membranes are moist. No oral lesions. Neck supple. Full range of motion. No adenopathy thyromegaly or neck vein distention. Cardiovascular examination reveals regular rhythm rate. S1-S2 normal. No S3 or S4. No discernible murmur noted. Heart rate 71 bpm. Lungs reveal minimal bibasilar crackles. No wheezes or rhonchi. Breath sounds are equal bilaterally. 2 L saturation is 96%. Abdomen soft bowel sounds are heard. No masses or tenderness. Extremities are intact. No cyanosis clubbing or edema. Skin is without rash or lesion. Neurologic examination is brief but nonfocal. - Labs CBC & Chem 7: 07/26/23 07:32 07/26/23 07:32 Labs: Abnormal Lab Results - Last 24 Hours (Table) 07/26/23 07/26/23 07/26/23 Range/Units 07:32 07:32 07:32 RBC 3.25 L (4.30-5.90) m/uL Hgb 10.4 L (13.0-17.5) gm/dL Hct 30.9 L (39.0-53.0) % Lymphocytes # 0.4 L (1.0-4.8) k/uL Sodium 132 L (137-145) mmol/L BUN 21 H (9-20) mg/dL Glucose 123 H (74-99) mg/dL Total Bilirubin 1.4 H (0.2-1.3) mg/dL Crossmatch See Detail Assessment and Plan Assessment: Multi-vessel coronary artery disease and severe mitral regurgitation, being considered for open heart surgery with surgical revascularization and mitral valve replacement, however, the patient does want to proceed with this option. Surgery is planned for 07/27/2023. Exertional dyspnea, likely secondary to above. CTA of the chest was completed for PE protocol which demonstrated no diagnostic evidence of pulmonary embolism, COPD like changes, pulmonary fibrosis, trace bilateral pleural effusions, lian undglass changes, posssibly mild venous congestion correlate for mild CHF exacerbation. Benign essential hypertension. Hyperlipidemia. Abdominal aortic aneurysm, measuring 3.3 cm incidentally found on chest CTA. GERD. Chronic and ongoing nicotine dependence. Plan: Plan dated 07/26/2023. The patient is advised, about the importance of using the incentive spirometer. We also but the patient know what our role in this, as pulmonary/critical care physician, after open heart surgery. We explained to him, that our first goal is to get him extricated or liberated from mechanical ventilation. Secondly, we work with the patient throughout his hospitalization, to assure that he does not develop pneumonia, pleural effusion, atelectasis, or lobar collapse. We will continue to follow the patient, and make recommendations along the way. Time with Patient: Less than 30
--- NOTE | 2023-07-26 13:17 | CT ---
EXAMINATION TYPE: CT brain wo con CT DLP: 1120.4 mGycm, Automated exposure control for dose reduction was used. DATE OF EXAM: 07/26/2023 12:57 PM COMPARISON: 07/21/2023. CLINICAL INDICATION:Male, 73 years old with history of fall, struck face, fall TECHNIQUE: Brain: Axial CT images of the brain were obtained with coronal and sagittal reformats created and rev iewed. Contrast used: None. Oral contrast used: None. FINDINGS: Brain: Extra-axial spaces: No abnormal extra-axial fluid collections. Ventricular system: Within normal limits Cerebral parenchyma: No acute intraparenchymal hemorrhage or mass effect. The ceja-white junction is well differentiated. Cerebellum: Unremarkable. Mass effect: No evidence of midline shift. Intracranial vasculature: Atherosclerotic calcifications of the intracranial vessels. Soft tissues: Normal. Calvarium/osseous structures: No depressed skull fracture. Deformity to the nasal bone bilaterally.) Left. Paranasal sinuses and mastoid air cells: Mild scattered paranasal sinus disease. Visualized orbits: Orbital contents are intact. IMPRESSION: 1. No acute intracranial process. 2. Subtle deformity to the nasal bone correlate with point tenderness for fracture.
--- NOTE | 2023-07-26 13:52 | P.PN ---
Subjective HISTORY OF PRESENT ILLNESS: This is a 73-year-old male who was admitted to the hospital secondary to non- STEMI. Patient underwent cardiac catheterization revealing severe triple vessel disease. 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 Patient examined this morning at the bedside. Patient denies any chest pain or pressure. He denies shortness of breath. He does report that he fell overnight and hit his nose. He reports feeling a little bit lightheaded. Vital signs have been stable. Telemetry reveals sinus mechanism. PHYSICAL EXAM: VITAL SIGNS: Reviewed. GENERAL: Well-developed in no acute distress. NECK: Supple. No JVD or thyromegaly LUNGS: Respirations even and unlabored. Lungs essentially clear to auscultation bilaterally. HEART: Regular rate and rhythm. S1 and S2 heard. Systolic murmur noted. EXTREMITIES: Normal range of motion. No clubbing or cyanosis. Peripheral pulses intact. No lower extremity edema ASSESSMENT: Non-STEMI Severe triple vessel coronary artery disease Valvular heart disease, as described above Hypertension Hyperlipidemia Abdominal aortic aneurysm Nicotine dependence PLAN: Continue current cardiac medications Patient scheduled for CABG, tricuspid valve repair, and mitral valve repair/replacement tomorrow Further recommendations pending patient course Nurse practitioner note has been reviewed by physician. Signing provider agrees with the documented findings, assessment, and plan of care. Objective - Vital Signs Vital signs: Vital Signs Temp 98.1 F 07/26/23 11:32 Pulse 58 L 07/26/23 11:32 Resp 18 07/26/23 11:32 BP 106/59 07/26/23 11:32 Pulse Ox 96 07/26/23 11:32 FiO2 Intake & Output 07/25/23 07/26/23 07/26/23 18:59 06:59 18:59 Intake Total 110 440 Output Total 400 Balance 110 40 Weight 72.575 kg Intake: Oral 110 440 Output: Urine 400 Other: Voiding Method Toilet Toilet Toilet Urinal Urinal Urinal # Voids 2 1 1 - Labs CBC & Chem 7: 07/26/23 07:32 07/26/23 07:32 Labs: Abnormal Lab Results - Last 24 Hours (Table) 09/05/23 09/05/23 09/05/23 Range/Units 07:32 07:32 07:32 RBC 3.25 L (4.30-5.90) m/uL Hgb 10.4 L (13.0-17.5) gm/dL Hct 30.9 L (39.0-53.0) % Lymphocytes # 0.4 L (1.0-4.8) k/uL Sodium 132 L (137-145) mmol/L BUN 21 H (9-20) mg/dL Glucose 123 H (74-99) mg/dL Total Bilirubin 1.4 H (0.2-1.3) mg/dL Crossmatch See Detail
--- NOTE | 2023-07-26 15:21 | P.PN ---
Subjective Progress Note Date: 07/26/23 This is a 73-year-old male who presented to the emergency department with feeling of chest pain or shortness of breath. Patient reported some pressure and squeezing sensation along with a minimal cough and bloating. Patient reports he follows with Dr. Holloway in the outpatient setting with a past medical history of GERD, hyperlipidemia, hypertension, continues to smoke about 1 pack per day, has an occasional drink although not very often and denies any other illicit drug use. Chest x-ray in the ER shows interstitial infiltrates noted with mid and lower lung zones bilaterally that could reflect edema versus interstitial pneumonia. Patient underwent CTA of the chest showing no diagnostic evidence of PE, COPD with pulmonary fibrosis correlate for mild CHF with a dense coronary artery atherosclerosis noted along with incidental note of abdominal aortic aneurysm partially included measuring approximately 3.3 cm with nonspecific mediastinal and hilar lymphadenopathy. There is a prominent pulm onary artery that can be associated with pulmonary artery hypertension. 2-D echo was ordered and pending and was patient was admitted for chest pain for cardiology evaluation. Patient started on heparin as troponins was 0.031 and trending up at 0.043. Virology testing including influenza, RSV, and CoVid were all negative. WBC revealed a 10.8, hemoglobin 15.8, platelets 298, INR 1.0, sodium was 139 with a potassium of 3.9, BUN was 14 with creatinine of 0.86, total bili is 0.6, LFTs within normal limits, BNP was 546. Patient is currently maintained on 2 L of oxygen via nasal cannula for shortness of breath and oxygen saturations are 95-98% and patient reports he does not wear oxygen outpatient. Patient has been counseled extensively on complete tobacco cessation. 07/21/2023 Patient is seen and evaluated in follow-up with cardiology following along with CT surgery which has been consulted. Patient underwent cardiac catheterization showing triple-vessel heart disease and cardiothoracic has been consulted to discuss possible surgical intervention. Initiation of preoperative clearance has been ongoing and patient was scheduled to undergo NICOLAS today. Patient continues on 2 L via nasal cannula and reports his shortness of breath is improved and keeps asking if he could go home. Awaiting further evaluation from CT surgery and will discuss further with them about this. Family at the bedside with multiple questions and concerns were answered to the best of our ability. Patient's at bedside reports he smokes at least 2 packs a day of cigarettes and he mentioned only 1 pack per day and also drinks coffee from the time he wakes up until the time he goes to bed all day. Patient is afebrile denies chest pain or palpitations. No worsening shortness of breath noted. Patient was nothing by mouth for NICOLAS and diet resumed after procedure and tolerating with no reports of nausea or vomiting. Pro-calcitonin was normal and will discontinue empiric antibiotics. 07/22/2023 Patient is seen in follow-up today undergoing continued surgical work up for severe triple vessel disease. Patient continues to report he feels well and would like to go home prior to surgery. Patient is still requiring 2 liters via NC of . Multiple medical consultations following. Tentative surgery on Tuesday. Per cardiology, no plans for discharge prior to surgery at this time. Smoking cessation reinforced and patient remains on nicotine patch. Patient is afebrile and denies any chest pain or shortness of breath. Tolerating diet with no reported nausea or vomiting. 07/23/2023 Patient is currently lying in bed. Awake alert and oriented x3. Able to ambulate in the room. No complaints of chest pain or shortness of breath. No nausea vomiting abdominal pain or diarrhea. Saturating at 97% on room air. Patient has been afebrile. No cough or sputum production. Laboratory data showed sodium 135 potassium 3.7 chloride 100 bicarb is 27 BUN 2020 creatinine 0.9 and blood sugars 150. Patient is being continued on aspirin and statin, metoprolol and Aldactone. Cardiology and CT surgery is on board. Patient is scheduled for coronary artery bypass graft on 07/27/2023. 07/24/2023 Patient is currently in the telemetry unit. No complaints of chest pain or shortness of breath. No nausea vomiting abdominal pain or diarrhea. Able to ambulate in the room. Currently on oxygen at 2 L via nasal cannula and saturating at 100%. Patient has been afebrile. No acute overnight issues. P atient is using incentive spirometry. Scheduled for coronary revascularization surgery on 07/27/2023. Cardiology, pulmonary and CT surgery is on board. 07/25/2023 Patient is seen in follow-up this morning continued on 2 L via nasal cannula with good oxygen saturations and takes off frequently. Patient has been up walking around and labs within normal limits. Patient is using incentive spirometer as instructed and following heart healthy diet. Planning on CABG with valve repair or replacement on Tuesday with cardiothoracic surgery. Patient is currently afebrile with no reports of chest pain or worsening shortness of breath. Patient is tolerating diet and denies nausea or vomiting. 07/26/2023 Patient seen and evaluated in follow-up today and was told by breeding technician that patient was sleeping sitting at the side of the bed and fell forward striking his nasal bone and head on the table. Maxillofacial CT was done showing concern for minimal nasal bone fracture. CT brain ordered without contrast as patient will be undergoing extensive CABG surgery in the a.m. and maintained on high intensity heparin throughout. This was discussed and relayed to cardiothoracic surgery and following protocol. Patient continues to require 2-3 L via nasal cannula otherwise denies worsening shortness of breath or chest pain. Patient denies having dizziness or lightheadedness or passing out at the time of this fall. No reports of nausea or vomiting noted and patient will be nothing by mouth at midnight. Review of systems: Constitutional: No reports of fatigue, fever, or chills Cardiovascular: No reports of chest pain or palpitations Respiratory: No reports of worsening shortness of breath or cough GI: No reports of nausea, vomiting, or diarrhea : No reports of dysuria or retention Neurovascular: No reports of weakness or numbness All medications have been reviewed PHYSICAL EXAMINATION: GENERAL: The patient is alert and oriented x4, Well developed, well nourished. HEENT: Pupils are round and equally reacting to light. EOMI. no scleral icterus. No conjunctival pallor. Normocephalic, atraumatic. No pharyngeal erythema. No thyromegaly. No facial deformity noted on exam CARDIOVASCULAR: S1 and S2 muffled PULMONARY: diminished breath sounds bilaterally with no wheezing or rhonchi noted. ABDOMEN: soft. Nontender on exam. obese. non-distended, normoactive bowel karmen nds. No palpable organomegaly. MUSCULOSKELETAL: No joint swelling or deformity. EXTREMITIES: No cyanosis, clubbing, or pedal edema. NEUROLOGICAL: Gross neurological examination did not reveal any focal deficits. SKIN: No rashes. Assessment: Chest pain status post cardiac catheterization found to have severe triple- vessel disease and tentatively scheduled for surgery on Tuesday Acute hypoxic respiratory failure, secondary to severe triple vessel disease Fall with a subtle deformity to the nasal bone for possible point tenderness fracture, no loss of consciousness, no acute intracranial process noted on CT of the brain Mild troponin elevation, most likely NSTEMI Mild leukocytosis, possibly reactive COPD, not in exacerbation Coronary artery atherosclerosis noted on CTA 3.3 cm abdominal aortic aneurysm noted on CTA Aortic valve murmur consistent with aortic stenosis, moderate History of GERD Hyperlipidemia history Hypertension history Continued ongoing nicotine dependence, smokes about 2 packs per day Excessive caffeine intake daily GI prophylaxis DVT prophylaxis Full code Plan: Patient was admitted for cardiology evaluation and underwent cardiac catheterization showing severe triple-vessel disease and cardiothoracic surgery following and scheduled for CABG with valve replacement/repair on 07/27/2023 Patient fell while asleep forward striking his nasal bone on the side table showing a subtle deformity of the nasal bone and CT brain was negative for acute process Patient is currently on 2 L via nasal cannula and will wean FiO2 as tolerated. Continue GI and DVT prophylaxis Encouraged increased activity as tolerated Continue telemetry monitoring Complete tobacco cessation and excessive caffeine use has been discussed extensively Overall prognosis is guarded at this time. Patient will undergo CABG tomorrow and will await CT surgery report The impression and plan of care has been dictated by Delia Oakes, nurse practitioner as directed. Dr. Matthew MD I have performed a history and examination and MDM of this patient, discussed the same with the dictator, and agree with the dictator's assessment and plan as written ,documented as a scribe. Based on total visit time, I have performed more than 50% of the visit. Any additional findings or plans will be noted. Objective - Vital Signs Vital signs: Vital Signs Temp 98.1 F 07/26/23 11:32 Pulse 58 L 07/26/23 11:32 Resp 18 07/26/23 11:32 BP 106/59 07/26/23 11:32 Pulse Ox 96 07/26/23 11:32 FiO2 Intake & Output 07/25/23 07/26/23 07/26/23 18:59 06:59 18:59 Intake Total 110 440 Balance 110 440 Weight 72.575 kg Intake: Oral 110 440 Other: Voiding Method Toilet Toilet Toilet Urinal Urinal Urinal # Voids 2 1 1 - Labs CBC & Chem 7: 07/26/23 07:32 07/26/23 07:32 Labs: Abnormal Lab Results - Last 24 Hours (Table) 07/26/23 07/26/23 07/26/23 Range/Units 07:32 07:32 07:32 RBC 3.25 L (4.30-5.90) m/uL Hgb 10.4 L (13.0-17.5) gm/dL Hct 30.9 L (39.0-53.0) % Lymphocytes # 0.4 L (1.0-4.8) k/uL Sodium 132 L (137-145) mmol/L BUN 21 H (9-20) mg/dL Glucose 123 H (74-99) mg/dL Total Bilirubin 1.4 H (0.2-1.3) mg/dL Crossmatch See Detail
[2023-07-26] MEDS: ALPRAZolam 0.25 MG TAB PO PRN (20:56)
[2023-07-26] MEDS: ATORVASTATIN 40 MG TAB PO SCH (20:56)
[2023-07-27] MEDS: NITROGLYCERIN OINT 1 INCH/GM PACKET TOPICAL SCH ×2 (00:11→05:40)
[2023-07-27] MEDS ORDERED: INSULIN REGULAR 100 UNIT in SODIUM CHLORIDE 0.9% 100 ML IV SCH ×2 (05:00→15:45)
[2023-07-27] MEDS ORDERED: PROTAMINE SULFATE 250 MG in EMPTY BAG 1 BAG IV ONE (05:00)
[2023-07-27] MEDS ORDERED: MANNITOL 25% 12.5 GM/50 ML VIAL IV ONE ×2 (05:00)
[2023-07-27] MEDS ORDERED: ALBUMIN HUMAN 25% 50 ML in EMPTY BAG 1 BAG IVPB ONE (05:00)
[2023-07-27] MEDS ORDERED: DILTIAZEM 125 MG in SODIUM CHLORIDE 0.9% 100 ML IV SCH (05:00)
[2023-07-27] MEDS ORDERED: ELECTROLYTE-A SOLUTION 1,000 ML with POTASSIUM CHLORIDE 40 MEQ, MAGNESIUM SULFATE 16 ME... IV ONE ×5 (05:00)
[2023-07-27] MEDS ORDERED: ALBUMIN HUMAN 5% 500 ML in EMPTY BAG 1 BAG IVPB ONE ×6 (05:00)
[2023-07-27] MEDS ORDERED: CALCIUM CHLORIDE 100 MG/ML 10 ML SYRINGE IVP ONE (05:00)
[2023-07-27] MEDS ORDERED: MAGNESIUM SULFATE 16.24 MEQ in EMPTY SYRINGE 1 SYR IV ONE (05:00)
[2023-07-27] MEDS ORDERED: ceFAZolin 1,000 MG in SODIUM CHLORIDE 0.9% IRRIGATIO 1,000 ML IRRIGATION ONE (05:00)
[2023-07-27] MEDS ORDERED: TRANEXAMIC ACID 2,000 MG in SODIUM CHLORIDE 0.9% 80 ML IV ONE (05:00)
[2023-07-27] MEDS ORDERED: PAPAVERINE 360 MG in SODIUM CHLORIDE 0.9% 90 ML IV ONE (05:00)
[2023-07-27] MEDS ORDERED: ELECTROLYTE-A SOLUTION 1,000 ML with POTASSIUM CHLORIDE 100 MEQ, MAGNESIUM SULFATE 16 M... IV ONE ×5 (05:00)
[2023-07-27] MEDS ORDERED: PHENYLEPHRINE 40 MG in SODIUM CHLORIDE 0.9% 250 ML IV ONE (05:00)
[2023-07-27] MEDS ORDERED: HEPARIN SODIUM,PORCINE (1 ML) 5,000 UNIT in SODIUM CHLORIDE 0.9% 500 ML 500 ML IV ONE (05:00)
[2023-07-27] MEDS ORDERED: CLEVIDIPINE BUTYRATE 25 MG in EMPTY BAG 1 BAG IV SCH ×2 (05:00→15:45)
[2023-07-27] MEDS ORDERED: CHLORHEXIDINE GLUCONATE 15 ML CUP MUCOUS MEM ONE (05:00)
[2023-07-27] MEDS ORDERED: PHENYLEPHRINE 10 MG/ML VIAL IV ONE (05:00)
[2023-07-27] MEDS ORDERED: METOPROLOL TARTRATE 12.5 MG TAB PO ONE (05:00)
[2023-07-27] MEDS ORDERED: ASPIRIN 325 MG TAB PO ONE (05:00)
[2023-07-27] MEDS ORDERED: NITROGLYCERIN-D5W PMX 25 MG/250 ML BTL IV ONE (05:00)
[2023-07-27] MEDS ORDERED: PROTAMINE SULFATE 10 MG/ML 25 ML VIAL IV ONE ×2 (05:00→07:50)
[2023-07-27] MEDS ORDERED: ATORVASTATIN 10 MG TAB PO ONE (05:00)
[2023-07-27] MEDS ORDERED: HEPARIN SODIUM 1,000 UN/ML (10ML VL) IV ONE (05:00)
[2023-07-27] MEDS ORDERED: NITROGLYCERIN-D5W PMX 50 MG in DEXTROSE/WATER 1 250ML.BAG IV SCH ×2 (05:00→15:45)
[2023-07-27] MEDS ORDERED: SODIUM BICARB 8.4% 50 ML SYR (1 MEQ/ML) IV ONE (05:00)
[2023-07-27] MEDS ORDERED: NOREPINEPHRINE 4 MG in SODIUM CHLORIDE 0.9% 250 ML IV SCH ×2 (05:00→16:00)
[2023-07-27] MEDS: CHOLECALCIFEROL 25 MCG (1000 IU) TABLET PO SCH (05:16)
[2023-07-27] MEDS: PANTOPRAZOLE 40 MG TABLET PO SCH (05:16)
[2023-07-27] MEDS: CITALOPRAM HYDROBROMIDE 20 MG TAB PO SCH (05:16)
[2023-07-27] MEDS: METOPROLOL TARTRATE 25 MG TAB PO SCH (05:20)
[2023-07-27 05:38] LABS: Glucose,Whole Blood 121 mg/dL (70-110)
[2023-07-27] MEDS: ASPIRIN 81 MG PO SCH (05:39)
[2023-07-27] MEDS: NICOTINE 21MG/24HR PATCH TRANSDERM SCH (05:39)
[2023-07-27] MEDS: SPIRONOLACTONE 25 MG TAB PO SCH (05:39)
[2023-07-27] MEDS ORDERED: LACTATED RINGERS 1,000 ML IV ONE (06:20)
[2023-07-27] MEDS ORDERED: NITROGLYCERIN-D5W PMX 50 MG/250 ML BOTTLE IV ONE (07:50)
[2023-07-27] MEDS ORDERED: fentaNYL (PF) 50 MCG/ML 50 ML VIAL ONE (07:50)
[2023-07-27] MEDS ORDERED: PROPOFOL 10 MG/ML 20 ML VIAL IV ONE (07:50)
[2023-07-27] MEDS ORDERED: MILRINONE 1 MG/ML 20 ML VIAL IV ONE (07:50)
[2023-07-27] MEDS ORDERED: ROCURONIUM 10 MG/ML (5 ML VIAL) IV ONE (07:50)
[2023-07-27] MEDS ORDERED: SODIUM BICARB 8.4% 50 ML SYR (1 MEQ/ML) ONE (07:50)
[2023-07-27] MEDS ORDERED: HEPARIN SODIUM,PORCINE 5,000 UNIT/ML 1 ML VIAL ONE (07:50)
[2023-07-27] MEDS ORDERED: INSULIN REGULAR 100 UNIT/ML VIAL (IV) ONE (07:50)
[2023-07-27] MEDS ORDERED: TRANEXAMIC 1,000 MG/100ML-NACL PREMIX BAG ONE (07:50)
[2023-07-27] MEDS ORDERED: VASOPRESSIN 20 UNIT/ML 1 ML VIAL ONE (07:50)
[2023-07-27] MEDS ORDERED: MIDAZOLAM HCL 10 MG/10 ML VIAL ONE (07:50)
[2023-07-27] MEDS ORDERED: NOREPINEPHRINE 1 MG/ML 4 ML VIAL IV ONE (07:50)
[2023-07-27] MEDS ORDERED: ALBUMIN HUMAN 5% (12.5gm) 250 ML BOTTLE IVPB ONE (07:50)
[2023-07-27] MEDS ORDERED: HEPARIN SODIUM,PORCINE 10,000 UNIT/ML 1 ML VIAL ONE (07:50)
[2023-07-27] MEDS ORDERED: ALBUTEROL HFA INHALER INHALATION ONE (07:50)
[2023-07-27 11:11] LABS: ABG Base Excess 5.1 mmol/L; ABG Glucose Whole Blood 113 mg/dL (75-99); ABG HCO3 28 mmol/L (21-25); ABG Ionized Calcium 3.6 mg/dL (4.5-5.3); ABG Lactic Acid Whole Blood 1.2 mmol/L (0.5-1.6); ABG Oxygen Saturation 99.8 % (94-97); ABG PCO2 34 mmHg (35-45); ABG PH 7.52 (7.35-7.45); ABG Potassium Whole Blood 4.1 mmol/L (3.4-4.5); ABG Sodium Whole Blood 133 mmol/L (135-146); ABG TCO2 29 mmol/L (19-24)
[2023-07-27 11:47] LABS: ABG Base Excess 4.2 mmol/L; ABG Glucose Whole Blood 108 mg/dL (75-99); ABG HCO3 27 mmol/L (21-25); ABG Ionized Calcium 3.6 mg/dL (4.5-5.3); ABG Lactic Acid Whole Blood 1.3 mmol/L (0.5-1.6); ABG Oxygen Saturation 99.7 % (94-97); ABG PCO2 33 mmHg (35-45); ABG PH 7.53 (7.35-7.45); ABG PO2 396 mmHg (83-108); ABG Potassium Whole Blood 5.4 mmol/L (3.4-4.5); ABG Sodium Whole Blood 133 mmol/L (135-146); ABG TCO2 28 mmol/L (19-24)
--- NOTE | 2023-07-27 11:55 | P.PN ---
Subjective Progress Note Date: 07/27/23 Principal diagnosis: Coronary artery disease. The patient is seen today 07/22/2023 in follow-up on the selective care unit. He is currently sitting up in bed. Awake and alert in no acute distress. He is maintaining O2 saturations in the 90s on 3 L/m per nasal cannula. He is pulling approximately 1200 ML's on his incentive spirometer. He continues to be worked up for possible bypass surgery along with mitral valve and tricuspid valve repairs. FEV1 value was 1.26 or 54% of predicted. NicoDerm patch remains in place. The patient is seen today 07/23/2023 in follow-up on the selective care unit. He is currently sitting up in a chair at the bedside. Awake and alert in no acute distress. Denies any worsening shortness of breath cough or congestion. Denies any chest pain. He is maintaining good O2 saturations up to 97% on room air. Afebrile. Sodium 135. Potassium 3.7. Bicarb 27. BUN 22. Creatinine 0.90. NicoDerm patch in place. The patient is seen today 07/24/2023 in follow-up on the selective care unit. Awake and alert in no acute distress. Sitting in bed. Denies any chest pain. No palpitations. No worsening shortness of breath or cough. He did have a nightmare and some confusion last evening. Oriented 3 today. Maintaining O2 saturations in the 90s on 2 L/m per nasal cannula. He is afebrile. Hemodynamically stable. NicoDerm patch in place. The patient is seen today 07/25/2023 in follow-up on the selective care unit. He is ambulating in his room. Awake and alert in no acute distress. Denies any chest pain. Denies any worsening shortness of breath, cough or congestion. He is maintaining good O2 saturations in the 90s on 2 L/m per nasal cannula. Afebrile. Hemodynamically stable. Sodium 134. Potassium 4.3. Bicarb 28. BUN 19. Creatinine 0.87. Glucose 113. NicoDerm patch remains in place. Progress note dated 07/26/2023. The patient is seen today in room 356. The patient is scheduled to have bypass grafting, on July 27. Currently he is on 2 L of oxygen. No IV fluids. He is sitting at the bedside. White count 5.4, hemoglobin 10.4, hematocrit 30.9, with a normal platelet count. Sodium 132, potassium 4.3, chlorides 98, CO2 29, BUN 21, creatinine 0.85. Chest x-ray shows changes of COPD, with mild interstitial pulmonary edema. Progress note dated 07/27/2023. The patient was seen this morning in room 356. The patient is scheduled to have open-heart surgery today, 07/27/2023. He is currently on 2 L of oxygen. Lab data today includes a glucose of 121. Lab data from July 26 have been re viewed. X-rays, medications, and other information has also been reviewed. Previous chest x-ray shows changes of COPD, with mild interstitial pulmonary edema. Objective - Vital Signs Vital signs: Vital Signs Temp 96.8 F L 07/27/23 06:07 Pulse 62 07/27/23 06:07 Resp 18 07/27/23 06:07 BP 108/54 07/27/23 06:07 Pulse Ox 98 07/27/23 06:07 FiO2 Intake & Output 07/26/23 07/27/23 07/27/23 18:59 06:59 18:59 Intake Total 905 53 Output Total 900 Balance 5 53 Weight 72.575 kg Intake: IV 53 Oral 905 Output: Urine 900 Other: Voiding Method Toilet Urinal # Voids 1 1 - Exam No acute distress, oriented 3. Currently on 2 L of oxygen. HEENT examination is grossly unremarkable. Mucous membranes are moist. No oral lesions. Neck supple. Full range of motion. No adenopathy thyromegaly or neck vein distention. Cardiovascular examination reveals regular rhythm rate. S1-S2 normal. No S3 or S4. No discernible murmur noted. Heart rate 67 bpm. Lungs reveal minimal bibasilar crackles. No wheezes or rhonchi. Breath sounds are equal bilaterally. 2 L saturation is 97%. Abdomen soft bowel sounds are heard. No masses or tenderness. Extremities are intact. No cyanosis clubbing or edema. Skin is without rash or lesion. Neurologic examination is brief but nonfocal. - Labs CBC & Chem 7: 07/26/23 07:32 07/26/23 07:32 Labs: Abnormal Lab Results - Last 24 Hours (Table) 07/26/23 07/27/23 Range/Units 07:32 05:37 POC Glucose (mg/dL) 121 H (70-110) mg/dL Crossmatch See Detail Assessment and Plan Assessment: Multi-vessel coronary artery disease and severe mitral regurgitation, being considered for open heart surgery with surgical revascularization and mitral valve replacement, however, the patient does want to proceed with this option. Surgery is planned for 07/27/2023. Exertional dyspnea, likely secondary to above. CTA of the chest was completed for PE protocol which demonstrated no diagnostic evidence of pulmonary embolism, COPD like changes, pulmonary fibrosis, trace bilateral pleural effusions, gr oundglass changes, posssibly mild venous congestion correlate for mild CHF exacerbation. Benign essential hypertension. Hyperlipidemia. Abdominal aortic aneurysm, measuring 3.3 cm incidentally found on chest CTA. GERD. Chronic and ongoing nicotine dependence. Plan: Plan dated 07/26/2023. The patient is advised, about the importance of using the incentive spirometer. We also but the patient know what our role in this, as pulmonary/critical care physician, after open heart surgery. We explained to him, that our first goal is to get him extricated or liberated from mechanical ventilation. Secondly, we work with the patient throughout his hospitalization, to assure that he does not develop pneumonia, pleural effusion, atelectasis, or lobar collapse. We will continue to follow the patient, and make recommendations along the way. Plan dated 07/27/2023. The patient is scheduled to have open-heart surgery today. He was currently on 2 L prior to surgery. Obviously, he will be coming back to the intensive care unit, on the mechanical ventilator. Yesterday, we explained to the patient, that are goal is to get the patient extricated or liberated from mechanical ventilation as soon as possible, and secondly, evaluate the patient's lungs on a daily patient, to prevent, collapse, atelectasis, pleural effusion, or pneumonia. Additional recommendations and suggestions are forthcoming. Time with Patient: Less than 30
[2023-07-27] MEDS: ASCORBIC ACID 500 MG TAB PO SCH (13:23)
[2023-07-27] MEDS: SODIUM CHLORIDE 0.9% 1,000 ML IV SCH ×2 (13:23→16:15)
[2023-07-27] MEDS: FERROUS SULFATE 325 MG TAB PO SCH (13:23)
[2023-07-27] MEDS: VITAMIN A 10,000 UNIT (3000 MCG) CAPSULE PO SCH (13:23)
[2023-07-27 13:29] LABS: ABG Base Excess 0.1 mmol/L; ABG Glucose Whole Blood 161 mg/dL (75-99); ABG HCO3 26 mmol/L (21-25); ABG Ionized Calcium 3.6 mg/dL (4.5-5.3); ABG Oxygen Saturation 99.5 % (94-97); ABG PCO2 47 mmHg (35-45); ABG PH 7.35 (7.35-7.45); ABG Sodium Whole Blood 133 mmol/L (135-146); ABG TCO2 27 mmol/L (19-24); Allen Test Performed? Yes
[2023-07-27 14:54] LABS: ABG Hematocrit 17 % (34.0-46.0); ABG PO2 >420 mmHg (83-108)
[2023-07-27 14:55] LABS: ABG Hematocrit 18 % (34.0-46.0)
[2023-07-27 14:58] LABS: ABG PO2 >420 mmHg (83-108); ABG Potassium Whole Blood 6.2 mmol/L (3.4-4.5)
[2023-07-27 14:59] LABS: ABG Hematocrit 16 % (34.0-46.0); ABG Lactic Acid Whole Blood 2.7 mmol/L (0.5-1.6)
[2023-07-27] MEDS ORDERED: Potassium Replacement Protocol 1 EACH MISC MISCELLANE PRN (15:45)
[2023-07-27] MEDS ORDERED: hydrALAZINE HCL 20 MG/ML 1 ML VIAL IVP PRN (15:45)
[2023-07-27] MEDS ORDERED: AMIODARONE 450 MG in DEXTROSE 5% IN WATER 250 ML IV PRN ×2 (15:45)
[2023-07-27] MEDS ORDERED: DEXMEDETOMIDINE/0.9% NACL(PMX) 400 MCG in EMPTY BAG 1 BAG IV SCH (15:45)
[2023-07-27] MEDS ORDERED: Magnesium Replacement Protocol 1 EACH MISC MISCELLANE PRN (15:45)
[2023-07-27] MEDS ORDERED: DEXTROSE 50% SYRINGE 50 ML IVP PRN ×2 (15:45)
[2023-07-27] MEDS ORDERED: IPRATROPIUM-ALBUTEROL 3 ML NEB INHALATION PRN (15:45)
[2023-07-27] MEDS ORDERED: ONDANSETRON 4 MG/2 ML VIAL IVP PRN (15:45)
[2023-07-27] MEDS ORDERED: AMIODARONE 360 MG in DEXTROSE 5% IN WATER 200 ML IV PRN ×2 (15:45)
[2023-07-27] MEDS ORDERED: METOCLOPRAMIDE 5 MG/ML 2 ML VIAL IVP PRN (15:45)
[2023-07-27] MEDS ORDERED: MORPHINE SULFATE 2 MG/ML SYRINGE IVP PRN (15:45)
[2023-07-27] MEDS ORDERED: CALCIUM GLUCONATE IN NACL 2 GM in SALINE 1 100ML.BAG IVPB PRN (15:45)
[2023-07-27] MEDS: MILRINONE-D5W PMX 20 MG in DEXTROSE/WATER 1 100ML.BAG IV SCH (16:15)
[2023-07-27] MEDS: IPRATROPIUM-ALBUTEROL 3 ML NEB INHALATION SCH ×2 (16:16→19:29)
[2023-07-27 16:19] LABS: Glucose,Whole Blood 123 mg/dL (70-110)
[2023-07-27 16:27] LABS: ABG Base Excess -1.4 mmol/L; ABG HCO3 27 mmol/L (21-25); ABG PCO2 68 mmHg (35-45); ABG TCO2 29 mmol/L (19-24); Allen Test Performed? Yes
[2023-07-27 16:31] LABS: ABG PO2 59 mmHg (83-108)
[2023-07-27] MEDS: ALBUMIN HUMAN 5% 250 ML in EMPTY BAG 1 BAG IVPB PRN ×3 (16:45→20:37)
[2023-07-27 16:52] LABS: INR 1.6 (<1.2); Partial Thromboplastin Time 64.2 sec (22.0-30.0); Prothrombin Time 15.6 sec (9.0-12.0)
[2023-07-27 16:53] LABS: Ionized Calcium 3.7 mg/dL (4.5-5.3)
[2023-07-27 16:59] LABS: ALT 18 U/L (4-49); AST 76 U/L (17-59); African American GFR (CKD) >90 (>60 ml/min/1.73 sqM); Alkaline Phosphatase 26 U/L (38-126); Anion Gap 3 mmol/L; Blood Urea Nitrogen 22 mg/dL (9-20); Carbon Dioxide 27 mmol/L (22-30); Chloride 106 mmol/L (98-107); Glucose 103 mg/dL (74-99); Non-African American GFR(CKD) 88 (>60 ml/min/1.73 sqM); Potassium 4.5 mmol/L (3.5-5.1); Sodium 136 mmol/L (137-145); Total Bilirubin 0.9 mg/dL (0.2-1.3); Total Protein 3.7 g/dL (6.3-8.2)
[2023-07-27 17:06] LABS: Basophils % (A) 0 %; Eosinophils % (A) 0 %; HCT 27.6 % (39.0-53.0); HGB 9.1 gm/dL (13.0-17.5); Lymphocytes # (A) 0.5 k/uL (1.0-4.8); Lymphocytes % (A) 6 %; MCH 31.3 pg (25.0-35.0); MCHC 33.1 g/dL (31.0-37.0); MCV 94.4 fL (80.0-100.0); Mean Platelet Volume 9.1; Monocytes # (A) 0.4 k/uL (0-1.0); Monocytes % (A) 5 %; Neutrophils # (A) 7.7 k/uL (1.3-7.7); Neutrophils % (A) 89 %; RBC 2.92 m/uL (4.30-5.90); RDW 15.2 % (11.5-15.5); WBC 8.7 k/uL (3.8-10.6)
[2023-07-27 17:30] LABS: Calcium 5.9 mg/dL (8.4-10.2)
[2023-07-27 18:05] LABS: Glucose,Whole Blood 132 mg/dL (70-110)
--- NOTE | 2023-07-27 18:05 | XR ---
EXAM: XR Chest, 1 View CLINICAL HISTORY: ITS.REASON XR Reason: Post Operative Cardiac Surgery TECHNIQUE: Frontal view of the chest. COMPARISON: None FINDINGS: Hardware: Endotracheal tube terminates approximately 6.7 cm above the jona. Enteric tube courses past the diaphragm and out of the field-of- view. Left-sided chest tube and mediastinal drain. Right [place] catheter terminates in the region of the pulmonary artery. Lungs/pleura: Small left pleural effusion. Pulmonary vasculature congestion/edema. No pneumothorax. Heart/mediastinum: Mild enlargement of the cardiac silhouette. Median sternotomy and CABG changes. Left atrial appendage clip. Soft tissues: Unremarkable. Bones: No acute fracture. Degenerative changes of the spine. Upper abdomen: Normal. IMPRESSION: 1. Endotracheal tube terminates approximately 6.7 cm above the jona. Enteric tube courses past the diaphragm and out of the [id number]. Left-sided chest tube and mediastinal drain. Right [place] catheter terminates in the region of the pulmonary artery. 2. Small left pleural effusion. Pulmonary vasculature congestion/edema.
[2023-07-27 18:10] LABS: ABG Base Excess -0.5 mmol/L; ABG HCO3 26 mmol/L (21-25); ABG PCO2 55 mmHg (35-45); ABG PH 7.29 (7.35-7.45); ABG PO2 119 mmHg (83-108); ABG TCO2 28 mmol/L (19-24); Allen Test Performed? Yes
--- NOTE | 2023-07-27 18:13 | PN ---
PROGRESS NOTE DATE OF SERVICE: 07/27/2023 SUBJECTIVE: This is a 73-year-old gentleman, who was admitted with triple-vessel disease, had a CABG today. No chest pain, no palpitations. The patient is mechanically ventilated and sedated in the ICU. OBJECTIVE: VITAL SIGNS: Pulse is 72, blood pressure 129/60, respirations 20. The vent settings are noted. CHEST: A few scattered rhonchi. ABDOMEN: Soft. NERVOUS SYSTEM: The patient is sedated. LABORATORY DATA: Reviewed. ASSESSMENT: 1. Coronary artery disease, status post coronary artery bypass grafting. 2. Triple-vessel coronary artery disease. 3. Acute hypoxic respiratory failure. 4. Chronic obstructive pulmonary disease. RECOMMENDATIONS: I recommend to continue current medical management, continue symptomatic treatment, mechanical ventilation. Follow closely with Cardiac Surgery. Monitor blood sugars closely. Further recommendations to follow. GREG / ILENEN: [id number] /
--- NOTE | 2023-07-27 18:29 | P.ANPRN ---
Procedure Note - Anesthesia - Invasive Line Right Central Line Time Out Performed: Yes (0725) Date of Procedure: 07/27/23 Location of Patient: PreOp Preparation: Sterile Prep, Sterile Dressing Central Line Location: Internal Jugular Ultrasound Used: Yes Purpose - Visualization and Identification of Vasculature: Yes Image Stored and Saved: Yes Narrative: Central line placement per sterile protocol utilized. Informed consent obtained.Right Internal jugular vein cannulated under aseptic precautions. 3cc 1% lidocaine infiltrated initially after cleaning with iodine based prep and draping. Ultrasound used to locate the vein and Seldinger technique used. 9Fr introduced sheath inserted and after the finding the needle with balloon maker needle/catheter. The introducer sheath was sutured in place. After the insertion of PA Catheter the insertion site was dressed with biopatch and tegaderm. Patient tolerated the procedure well. Right [place] Time Out Performed: Yes Date of Procedure: 07/27/23 Location of Patient: PreOp Preparation: Sterile Prep, Sterile Dressing [place] Line Location: Internal Jugular Ultrasound Used: No Purpose - Visualization and Identification of Vasculature: No Narrative: Central line placement per sterile protocol utilized. 8Ff PA catheter threaded through the Right IJ introducer sheath under asepsis with continuous waveform monitoring. Catheter at 49 cms kathi. - NICOLAS Intraop Pre Bypass NICOLAS Intraop - Anesthesia Indication: Coronary artery bypass graft plus mitral and tricuspid valve. Date of Procedure: 07/27/23 Pre-operative Diagnosis: Coronary artery disease, severe mitral/tricuspid regurgitation Post-operative Diagnosis: Same Surgeon: Pura Mcintosh Left Ventricle: Ejection fraction 50-55%. C sept distance 2.1cm. No regional wall motion abnormalities noted. Ejection Fraction: Normal Regional Wall Motion Abnormalities: None Left Ventricle Hypertrophy: Yes R. Ventricle Function: Normal Aortic Valve: Calcified and to sclerosed aortic valve noted. Mean gradient across about 10 mmHg and peak gradient 16 mm of mercury. Trace aortic incompetence noted. Anatomy: Trileaflet Aortic Stenosis: Mild Aortic Regurgitation: Trace Mitral Valve: There is eccentrically directed (anteriorly) anteriorly severe mitral regurgitation noted. There appears to be prolapse of the P2 leaflet and a portion of the P3 leaflet also. Also there seems to be a ruptured chordae tendineae. Mitral Stenosis: None Mitral Regurgitation: Severe Tricuspid Stenosis: None Tricuspid Regurgitation: Moderate R. Atrial Dilation: Yes R. Atrial PFO: No Left Atrium: No clots seen in the left atrial appendage L. Atrial Dilation: Yes Aortic Dissection: No Aortic Calcification: None Plural Effusion: None - NICOLAS Intraop Post Bypass NICOLAS Intraop Post Bypass Procedure Performed: Naomi artery bypass graft, mitral and tricuspid valve repair Left Ventricle: Ejection fraction 55-60%. No new regional wall motion abnormalities noted. Ejection Fraction: Normal Regional Wall Motion Abnormalities: None R. Ventricle Function: Normal Aortic Valve: There is mild increase in the peak gradient across the valve possibly related to the higher heart rate and pacing. But the mean gradient is apparently same at 12 mmHg Mitral Valve: Mitral ring noted in situ, seated well. Mean gradient across the mitral valve is 3 mmHg and peak gradient is 6 mmHg. Trace residual mitral regurgitation noted. Tricuspid: Tricuspid ring seated valve and no tricuspid regurgitation seen. Pulmonic: Unchanged Aortic Dissection: No
[2023-07-27 18:39] LABS: Glucose,Whole Blood 134 mg/dL (70-110)
[2023-07-27] MEDS: HEPARIN SODIUM,PORCINE 5,000 UNIT/ML 1 ML VIAL SQ SCH ×2 (18:41→22:56)
[2023-07-27 19:10] LABS: Platelet Count 57 k/uL (150-450)
[2023-07-27] MEDS: ACETAMINOPHEN IV (For NPO) 1,000 MG in EMPTY BAG 1 BAG IVPB SCH ×2 (19:31→23:08)
[2023-07-27 19:38] LABS: Basophils % (A) 0 %; Eosinophils % (A) 0 %; HCT 25.1 % (39.0-53.0); HGB 8.8 gm/dL (13.0-17.5); Lymphocytes # (A) 0.3 k/uL (1.0-4.8); Lymphocytes % (A) 3 %; MCH 32.3 pg (25.0-35.0); MCHC 34.9 g/dL (31.0-37.0); MCV 92.5 fL (80.0-100.0); Mean Platelet Volume 9.7; Monocytes # (A) 0.4 k/uL (0-1.0); Monocytes % (A) 4 %; Neutrophils # (A) 9.2 k/uL (1.3-7.7); Neutrophils % (A) 92 %; RBC 2.71 m/uL (4.30-5.90); RDW 15.6 % (11.5-15.5)
[2023-07-27 19:40] LABS: Platelet Count 53 k/uL (150-450)
[2023-07-27 19:53] LABS: ABG HCO3 26 mmol/L (21-25); ABG PCO2 47 mmHg (35-45); ABG PH 7.35 (7.35-7.45); ABG PO2 127 mmHg (83-108); ABG TCO2 27 mmol/L (19-24)
[2023-07-27 19:55] LABS: Glucose,Whole Blood 127 mg/dL (70-110)
[2023-07-27 20:27] LABS: Allen Test Performed? no
[2023-07-27 20:59] LABS: Glucose,Whole Blood 129 mg/dL (70-110)
[2023-07-27] MEDS: SENNOSIDES-DOCUSATE SODIUM 1 EACH TAB PO SCH (21:41)
[2023-07-27] MEDS: ATORVASTATIN 40 MG TAB PO SCH (21:42)
[2023-07-27 22:00] LABS: Glucose,Whole Blood 136 mg/dL (70-110)
[2023-07-27 22:01] LABS: Basophils % (A) 0 %; Eosinophils % (A) 0 %; HCT 21.1 % (39.0-53.0); Lymphocytes # (A) 0.3 k/uL (1.0-4.8); Lymphocytes % (A) 3 %; MCHC 34.8 g/dL (31.0-37.0); MCV 92.2 fL (80.0-100.0); Mean Platelet Volume 10.3; Monocytes # (A) 0.3 k/uL (0-1.0); Monocytes % (A) 4 %; Neutrophils # (A) 7.4 k/uL (1.3-7.7); Neutrophils % (A) 92 %; RBC 2.29 m/uL (4.30-5.90); RDW 15.8 % (11.5-15.5)
[2023-07-27 22:19] LABS: ABG Base Excess -0.9 mmol/L; ABG HCO3 25 mmol/L (21-25); ABG PCO2 48 mmHg (35-45); ABG PH 7.33 (7.35-7.45); ABG PO2 80 mmHg (83-108); ABG TCO2 27 mmol/L (19-24)
[2023-07-27 22:21] LABS: HGB 7.3 gm/dL (13.0-17.5); Platelet Count 50 k/uL (150-450)
[2023-07-27 22:22] LABS: Allen Test Performed? no
[2023-07-27 23:03] LABS: Glucose,Whole Blood 143 mg/dL (70-110)
[2023-07-28 00:02] LABS: Glucose,Whole Blood 145 mg/dL (70-110)
--- NOTE | 2023-07-28 00:37 | OP ---
OPERATIVE REPORT DATE OF SERVICE : 07/27/2023 ASSISTANTS: Matthew Rich and Zafar Mattson. PREOPERATIVE DIAGNOSES: Severe triple-vessel coronary artery disease with a chronically occluded right coronary artery and first obtuse marginal artery, mild left ventricular dysfunction, severe mitral valve regurgitation with prolapse of P2 with ruptured cord, severe pulmonary hypertension, hyperlipidemia, calcification posterior aspect ascending aorta. POSTOPERATIVE DIAGNOSES: Severe triple-vessel coronary artery disease with a chronically occluded right coronary artery and first obtuse marginal artery, mild left ventricular dysfunction, severe mitral valve regurgitation with prolapse of P2 with ruptured cord, severe pulmonary hypertension, hyperlipidemia, calcification posterior aspect ascending aorta. Evidence of diffuse calcific coronary artery disease. PROCEDURES PERFORMED: 1. Triple-vessel coronary artery bypass grafting using the left internal mammary artery to the left anterior descending artery, reverse saphenous vein graft from the aorta to the first obtuse marginal artery, reverse saphenous vein graft from the aorta to the posterior descending artery. 2. Complex mitral valve repair with construction off two pairs of NeoChords to P2 and posterior ring annuloplasty using a 34 mm AnnuloFlex ring. 3. Tricuspid valve repair using a 28 mm MC3 ring. 4. Exclusion of the left atrial appendage using a 40 mm AtriClip. 5. Endoscopic harvesting of left greater saphenous vein. 6. Intraoperative graft flow measurements using the [employer] system. 7. Intraoperative transesophageal echocardiogram and epiaortic scanning. INDICATION FOR SURGERY: The patient is a 73-year-old gentleman admitted to the hospital with several days history of shortness of breath and some chest discomfort. He was ruled in for non ST elevation myocardial infarction. Workup included a cardiac catheterization that showed severe proximal left anterior descending artery disease as well as totally chronically occluded right coronary artery system as well as a large first obtuse marginal artery. His 2D echo and NICOLAS eventually showed severe mitral valve regurgitation from flail P2 segment of the mitral valve with mild left ventricular dysfunction. There was evidence of moderate tricuspid valve regurgitation and moderate pulmonary hypertension. The patient was to end up over several days and has been taken today for high-risk coronary artery bypass grafting as well as mitral and tricuspid valve repair. The STS risk was discussed with him and his family. They understood it and agreed to proceed. DESCRIPTION OF THE PROCEDURE: The patient in supine position in the preoperative holding area. A [place]-Cecy catheter via the right internal jugular vein and a right radial arterial line were placed. The patient's PA pressure was two-third systemic with 70/40 with a cardiac index of 2.2. Subsequently, he was brought to the operating room where general endotracheal anesthesia was induced uneventfully. The Napoles catheter was inserted. The chest, abdomen and both lower extremities were prepped and draped using ChloraPrep. Ioban was used to cover the skin. Transesophageal echocardiogram confirmed the preoperative finding of severe mitral valve regurgitation from flail P2 and moderate tricuspid valve regurgitation and mild left ventricular dysfunction. Midline sternotomy was performed and no bone wax was used. The left hemisternum was elevated and the left internal mammary artery was harvested in a somewhat skeletonized fashion. The left pleura was intentionally opened in this process and was drained with a 19-[place] Tj drain. We made a breach in the right pleura that was also drained with a 19-[place] Tj drain. The patient was given 5000 units of heparin and the mammary artery was clipped distally beyond its bifurcation, had excellent pulsatile flow in it and was around 2 mm in diameter. In the same setting, the left greater saphenous vein was harvested endoscopically from groin to above ankle level after administration of 2500 units of heparin. The leg incisions were closed over a drain. The vein was prepared by tying all its branches. It appeared to be of reasonable quality around 3.5 mm in diameter. The Thea mitral retractor was used. Mediastinal fat was transected between two ties and epiaortic scanning confirmed what was seen on CAT scan preoperatively, which is the presence of a calcified posterior plaque from the mid to distal ascending aorta. There were no protruding atheromas. Pericardium was opened in an inverted T- fashion and a pericardial cradle was created. Findings included a normal-sized aorta and a large heart with evidence of diffuse calcific coronary artery disease. After systemic heparinization after placement of respective pledgeted pursing aortic cannulation and the proximal arch with a 21-[place] soft flow cannula, direct SVC cannulation with a 28-[place] right angle cannula, IVC cannulation at the junction with the right atrium with a 32-[place] straight cannula was performed. Antegrade as well as retrograde cardioplegia catheter were placed. Cardiopulmonary bypass was initiated and with the heart empty and beating, we looked at the target. Again, there was evidence of diffuse calcific coronary artery disease and we picked a spot in the left anterior descending artery beyond the diagonal artery for bypass. At the lateral wall, we found the first obtuse marginal artery which was soft in its mid aspect and would be the site for bypass. Looking at the inferior wall, there was diffuse calcification, but there was one soft spot in the proximal posterior descending artery which would be the site for bypass. The aorta was clamped to be low the posterior calcified plaque and myocardial protection was achieved with initial dose of 900 mL of antegrade cold blood cardioplegia followed by 400 mL of retrograde cold blood cardioplegia. All subsequent doses were given as combination with retrograde cardioplegia that at some point included the vein that was constructed to the obtuse marginal artery as well as antegrade cardioplegia, which included the vein going to the posterior descending artery, which was anastomosed proximally to the aorta initially. We started by excluding the left atrial appendage by deploying 40 mm AtriClip at its base. The first distal anastomosis was between the vein that was around 3 mm in diameter and the proximal aspect of the posterior descending artery, which was diffusely diseased and was around 1.5 mm in diameter using Prolene 7-0 in continuous fashion. I proceeded at performing the proximal anastomosis of this vein graft to the proximal ascending aorta after punching out a button of 4 mm using Prolene 6-0 in a continuous fashion. That was done, so we can ensure adequate protection of the right ventricle as we gave antegrade plegia as combination and maintenance doses. The second distal anastomosis of another vein graft of reasonable quality and the 1.5 mm first obtuse marginal artery using Prolene 7-0 in continuous fashion. That vein was connected to a Y arm on the retrograde cardioplegia delivery system and was included in all the maintenance doses. The last distal anastomosis was between the left internal mammary artery that passed and a window made in the lateral pericardium and anastomosed to the mid to distal left anterior descending artery beyond the diagonal artery in a soft spot before a calcified plaque using Prolene 7-0 in continuous fashion. At this point, both cava had been encircled before with tapes. Attention was moved at performing the mitral valve repair part. A standard left atriotomy was performed after developing the interatrial groove. The Thea retractor was used to help with visualization. I started by placing a total of 10 Tycron 2/0 sutures posteriorly from trigone to trigone. That helped us to spread out the valve and be able to fully assess it. There was evidence of ruptured chordae to the P2, P3 region. The rest appeared to be intact and not prolapsing. I placed two pairs of 4-0 [place]- [place] attached to the posterior papillary muscle and to the edge of the P2, P3 region. Testing revealed excellent seal. I measured the surface area of the mitral valve to a 34 mm AnnuloFlex and the posterior band was used out of it. The 10 sutures were passed into the band that seated nicely. All the needles were cut and the suture tied using the Cor-Knot device. Testing at this point again showed good seal. With that, I proceeded at tying 12 times the [place] NeoChord. Testing one more time revealed good seal. CO2 was flowing over the field as long as the left atrium was opened. I proceeded as at this point and closing the left atriotomy in one layer using pledgeted 4-0 Prolene at the corner and meeting in the midline. Before full closure of the left atrium, de-airing maneuvers were pursued. At this point, both cava were snared and attention was moved at the tricuspid valve repair part. An oblique right atriotomy was performed and the Thea retractor helped in visualization. The tricuspid valve had just dilated anulus and I placed a total of eight sutures from around 10 a.m. to 6 p.m. on the septal leaflet and those were passed and a 28 mm MC3 ring which seated nicely. All the needles cut and the suture tied using the Cor-Knot device. Testing of the valve revealed excellent seal. The [place]-Cecy catheter was intact. The right atrium was closed using 4-0 Prolene, buttressed on each side with two strips of autologous pericardium. We had started rewarming at this point, as we completed the proximal anastomosis of the vein graft going to the obtuse marginal artery to the ascending aorta using running Prolene. The patient had been half loaded with Primacor and started on a low-dose drip. Patient received lidocaine and magnesium. Patient was placed in Trendelenburg position. An aortic root vent was kept on maximal. De-airing maneuver pursued. Subsequently, the aorta was unclamped. The patient regained spontaneous sinus bradycardic rhythm initially. Three monopolar atrial pacing wires were affixed to the respective pursestrings of the right atrium and the free wall of the right atrium. One bipolar ventricular pacing wire was driven via the inferior aspect of the right ventricle. Two hundred nineteen-[place] Tj drain were left substernally. After around 15 minutes of reperfusion and atrially paced at 80 with good conduction were able to wean off cardiac bypass on low-dose Primacor and Levophed. Cardiac index was 3. NICOLAS showed good mitral valve functioning with no mitral valve regurgitation and no evidence of YESENIA. The tricuspid valve was also totally competent with no leak. The left ventricle showed normal function and good de-airing. With that all pump suckers were stopped as we gave test dose followed by full dose protamine. Decannulation followed. After ensuring adequate hemostasis and hemodynamic and after correct sponge, instrument, and needle count, the pericardial and mediastinal fat were approximated over the heart and the graft. The sternum was subsequently closed using 5 figure-of- eight pineal cable after interposing fibular between the sternal edges. Thorough irrigation with cefazolin followed. The rest of the closure proceeded in layers. The patient received 2 units of packed red blood cells on the pump. He received 400 mL of Cell Saver blood. He was transferred to the ICU on 0.15 mcg per kg per minute of Primacor, low-dose Levophed, atrially paced at 80 with a mean arterial pressure 75, PA pressure 40/20 and cardiac index of 2.5. We had performed official graft flow measurements using the [employer] system. A 4 mm probe was selected. The flow into the vein to the posterior descending artery was 146 mL/minute, pulsatility index of 2.7, diastolic filling of 80%, showing excellent functioning graft. The flow into the vein to the obtuse marginal artery was 60 mL/minute, pulsatility index of 3.5, diastolic filling of 61% showing excellent functioning graft. The flow into the left internal mammary artery to the left anterior descending artery was 79 mL/minute, pulsatility index of 2.1 and diastolic filling of 81% showing an excellent functioning graft. With that, the procedure was terminated. MMROSEMARYL / IJN: [id number] / [facility] HOSPITALGato
[2023-07-28 01:05] LABS: Glucose,Whole Blood 151 mg/dL (70-110)
[2023-07-28 01:55] LABS: Glucose,Whole Blood 141 mg/dL (70-110)
[2023-07-28] MEDS: BENZOCAINE/MENTHOL LOZENG 1 EACH LOZENGE MUCOUS MEM PRN ×2 (02:19→14:20)
[2023-07-28 02:59] LABS: Glucose,Whole Blood 132 mg/dL (70-110)
[2023-07-28 03:50] LABS: Ionized Calcium 4.2 mg/dL (4.5-5.3)
[2023-07-28 03:58] LABS: AST 142 U/L (17-59); African American GFR (CKD) >90 (>60 ml/min/1.73 sqM); Albumin 2.6 g/dL (3.5-5.0); Anion Gap 4 mmol/L; Blood Urea Nitrogen 23 mg/dL (9-20); Carbon Dioxide 26 mmol/L (22-30); Chloride 105 mmol/L (98-107); Glucose 108 mg/dL (74-99); Magnesium 2.5 mg/dL (1.6-2.3); Non-African American GFR(CKD) 79 (>60 ml/min/1.73 sqM); Potassium 4.6 mmol/L (3.5-5.1); Sodium 135 mmol/L (137-145); Total Protein 4.3 g/dL (6.3-8.2)
[2023-07-28 03:59] LABS: ALT 24 U/L (4-49); Alkaline Phosphatase 34 U/L (38-126)
[2023-07-28 04:07] LABS: Basophils % (A) 0 %; Eosinophils % (A) 0 %; HCT 20.9 % (39.0-53.0); HGB 7.2 gm/dL (13.0-17.5); Lymphocytes # (A) 0.4 k/uL (1.0-4.8); Lymphocytes % (A) 5 %; MCH 31.5 pg (25.0-35.0); MCHC 34.3 g/dL (31.0-37.0); MCV 91.7 fL (80.0-100.0); Mean Platelet Volume 9.4; Monocytes # (A) 0.3 k/uL (0-1.0); Monocytes % (A) 5 %; Neutrophils # (A) 6.1 k/uL (1.3-7.7); Neutrophils % (A) 89 %; RBC 2.28 m/uL (4.30-5.90); RDW 15.8 % (11.5-15.5); WBC 6.9 k/uL (3.8-10.6)
[2023-07-28 05:00] LABS: Platelet Count 50 k/uL (150-450)
[2023-07-28 05:02] LABS: Glucose,Whole Blood 157 mg/dL (70-110)
[2023-07-28] MEDS: HEPARIN SODIUM,PORCINE 5,000 UNIT/ML 1 ML VIAL SQ SCH (05:51)
[2023-07-28 06:07] LABS: Glucose,Whole Blood 148 mg/dL (70-110)
[2023-07-28 06:51] LABS: Glucose,Whole Blood 154 mg/dL (70-110)
[2023-07-28] MEDS: IPRATROPIUM-ALBUTEROL 3 ML NEB INHALATION SCH ×4 (07:45→19:20)
[2023-07-28] MEDS ORDERED: CALCIUM GLUCONATE IN NACL 2 GM in SALINE 1 100ML.BAG IVPB ONE (07:45)
[2023-07-28] MEDS: CHOLECALCIFEROL 25 MCG (1000 IU) TABLET PO SCH (08:12)
[2023-07-28] MEDS: FONDAPARINUX 2.5 MG/0.5 ML SYRINGE SQ SCH (08:13)
[2023-07-28] MEDS: METOPROLOL TARTRATE 12.5 MG TAB PO SCH ×2 (08:13→19:59)
[2023-07-28] MEDS: CITALOPRAM HYDROBROMIDE 20 MG TAB PO SCH (08:13)
[2023-07-28] MEDS: NICOTINE 21MG/24HR PATCH TRANSDERM SCH (08:14)
[2023-07-28] MEDS: CLOPIDOGREL 75 MG TAB PO SCH (08:20)
[2023-07-28] MEDS: ASPIRIN 81 MG PO SCH (08:20)
[2023-07-28] MEDS: ALPRAZolam 0.25 MG TAB PO PRN ×2 (08:56→21:39)
[2023-07-28] MEDS ORDERED: METOPROLOL TARTRATE 12.5 MG TAB PO SCH (09:00)
[2023-07-28] MEDS ORDERED: MAGNESIUM HYDROXIDE 2,400 MG/30 ML CUP PO PRN (09:00)
[2023-07-28] MEDS ORDERED: PANTOPRAZOLE 40 MG/10 ML VIAL IVP SCH (09:00)
[2023-07-28] MEDS ORDERED: bisacodyL 10 MG SUPP RECTAL PRN (09:00)
[2023-07-28] MEDS ORDERED: CLOPIDOGREL 75 MG TAB PO SCH (09:00)
[2023-07-28] MEDS ORDERED: ASPIRIN 325 MG TAB PO SCH (09:00)
--- NOTE | 2023-07-28 09:07 | XR ---
EXAMINATION TYPE: XR chest 1V portable DATE OF EXAM: 07/28/2023 Comparison: 07/27/2023 Clinical History: 73-year-old male Post Operative Cardiac Surgery Findings: Interval extubation and removal of NG tube. Epicardial pacer leads remain. Right IJ [place]-Cecy cathete r with tip probably approaching the right interlobar pulmonary artery. Median sternotomy wires and po st-CABG clips. Interstitial prominence persists though there has been some improvement on the right. Prominent patchy retrocardiac and left basilar opacity remains. Left chest tube remains. No appreciab le pneumothorax. Impression: 1. Residual mild pulmonary vascular congestion, some improvement on the right. 2. Ongoing patchy edema or postoperative atelectasis retrocardiac region and left base. 3. Interval extubation and removal of NG tube.
[2023-07-28 09:09] LABS: Glucose,Whole Blood 147 mg/dL (70-110)
--- NOTE | 2023-07-28 09:13 | P.PN ---
Subjective Progress Note Date: 07/28/23 Principal diagnosis: Severe diffuse calcific triple-vessel coronary artery disease with chronically occluded RCA and first OM, unstable angina, severe mitral valve regurgitation wi th prolapse of P2 with ruptured chord, moderate tricuspid valve regurgitation with severe pulmonary hypertension. History of hypertension, hyperlipidemia, abdominal aortic aneurysm with calcification of the posterior aspect of the ascending aorta, chronic ongoing tobacco dependence, moderate restrictive lung disease, GERD, depression POD #1 triple-vessel coronary artery bypass grafting using the left internal mammary artery to the left anterior descending artery, reverse saphenous vein graft from the aorta to the first obtuse marginal artery, reverse saphenous vein graft from the aorta to the posterior descending artery, complex mitral valve repair with construction of two pairs of NeoChords to P2 and posterior ring annuloplasty using a 34 mm AnnuloFlex ring, tricuspid valve repair using a 28 mm MC3 ring, exclusion of the left atrial appendage using a 40 mm AtriClip, endoscopic harvesting of the left greater saphenous vein, intraoperative graft flow measurements using the Verified Person system, intraoperative transesophageal echocardiogram and epiaortic scanning Postoperative acute blood loss anemia and thrombocytopenia, expected given hemodilution and cardiopulmonary bypass pump The patient was seen and examined this morning with Dr. Mcintosh sitting up in a recliner in no acute distress although he does appear a bit anxious. He was successfully extubated last night at 22:27. Remains in sinus rhythm, hemodynamically stable on no pressors, Primacor at very low dose which was shut off and this morning. Patient does complain of some post surgical pain which is not completely controlled with current medication regimen, denies shortness of breath. Patient appears anxious regarding his Irizarry catheter and ANGELES drain. Chest x-ray, labs reviewed. Patient remains on 4 L nasal cannula with oxygen saturation in the low 90s, able to achieve 750 mL on his incentive spirometry. Right internal jugular [place]/Cordis, right radial arterial line, mediastinal/left pleural chest tubes, left lower extremity ANGELES drain all present. No other new concerns. Objective - Vital Signs Vital signs: Vital Signs Temp 98.6 F 07/27/23 19:00 Pulse 81 07/28/23 07:59 Resp 13 07/28/23 07:00 BP 116/49 07/28/23 06:15 Pulse Ox 91 L 07/28/23 07:51 FiO2 50 07/27/23 22:02 Intake & Output 07/27/23 07/28/23 07/28/23 18:59 06:59 18:59 Intake Total 5174.794 5373.337 Output Total 3895 1595 Balance -2773.755 -3.663 Weight 74.5 kg Intake: IV 260 1378 0.9 150 600 Albumin Human 5% 250 ml 500 In Empty Bag 1 bag @ 250 mls/hr IVPB Q1HR PRN Rx#: [id number] CI/CO 30 170 Pressure bags 27 108 Intake, IV Titration 5.245 63.337 Amount Clevidipine Butyrate 25 1 mg In Empty Bag 1 bag @ 1 MG/HR 2 mls/hr IV .Q24H ANCA Rx#:[id number] Insulin Regular 100 unit 17.506 In Sodium Chloride 0.9% 100 ml @ Per Protocol IV .Q0M ANCA Rx#:[id number] propofoL 1,000 mg In 4.245 45.831 Empty Bag 1 bag @ Titrate IV .Q0M ANCA Rx#: [id number] Oral 150 Blood Product 606 Rc As-1 Unit 310 [id number] Rc Pheresis 2 As3 Unit 296 [id number] Albumin 250 Albumin Human 5% 250 ml 250 In Empty Bag 1 bag @ 250 mls/hr IVPB Q1HR PRN Rx#: [id number] Output: Chest Tube Drainage 510 660 L. plurel 260 290 MS 250 370 Drainage 60 50 Left Calf 60 50 Urine 1125 885 Estimated Blood Loss 2200 Other: Voiding Method Indwelling Catheter Indwelling Catheter ABP, PAP, CO, CI - Last Documented Arterial Blood Pressure 152/39 Pulmonary Artery Pressure 42/11 Cardiac Output 6.1 Cardiac Index 3.4 - Exam CONSTITUTIONAL: Appears a bit anxious, cooperative, no acute distress RESPIRATORY: Lungs sounds diminished bilaterally. Respirations even, nonlabored. Currently on 4 L nasal cannula with oxygen saturation 91%. Able to achieve 750 mL on incentive spirometry. Strong loose cough. CARDIOVASCULAR: S1, S2 present. Regular rate and rhythm, sinus rhythm on telemetry. Sternum stable. Palpable peripheral pulses bilaterally. No edema present. No calf pain or tenderness noted. Heart hugger in place with patient demonstrating appropriate use. Antiembolism stockings, SCDs present. GASTROINTESTINAL: Abdomen soft, nontender, nondistended. Hypoctive bowel sounds present 4 quadrants. Tolerating diet. Positive flatus GENITOURINARY: Irizarry present draining clear, yellow urine. Output overnight 50-100 mL per hour INTEGUMENTARY: Skin is warm and dry with evidence of good perfusion. Anterior chest incision well approximated and covered with dry intact dressing. Left lower extremity EVH site well approximated, ANGELES drain present with minimal serosanguineous drainage NEUROLOGIC: Cranial nerves II through XII intact MUSKULOSKELETAL: Able to move all extremities, strength equal bilaterally PSYCHIATRIC: Alert and oriented to person place and time, anxiuos, intact judgment and insight INVASIVE LINES AND TUBES: Mediastinal/left pleural chest tubes present and connected to wall suction, no air leaks present. Mediastinal tube with 220 mL serosanguineous drainage overnight, 650 mL since surgery. Left pleural chest tube with 170 mL serosanguineous drainage overnight, 600 mL since surgery. A/V epicardial pacemaker wires present, connected to generator, AAI mode with backup rate 60 bpm. Right internal jugular [place]/Cordis, right radial arterial line present. Last CO/CI 6.1/3.4, PA 42/10, CVP 3. - Allied health notes Allied health notes reviewed: nursing - Labs CBC & Chem 7: 07/28/23 03:00 07/28/23 03:00 Labs: Abnormal Lab Results - Last 24 Hours (Table) 07/26/23 07/27/23 07/27/23 Range/Units 07:32 09:00 09:00 RBC (4.30-5.90) m/uL Hgb (13.0-17.5) gm/dL Hct (39.0-53.0) % RDW (11.5-15.5) % Plt Count (150-450) k/uL Neutrophils # (1.3-7.7) k/uL Lymphocytes # (1.0-4.8) k/uL PT (9.0-12.0) sec INR (<1.2) APTT (22.0-30.0) sec Fibrinogen (200-500) mg/dL ABG pH 7.53 H 7.52 H (7.35-7.45) ABG pCO2 33 L 34 L (35-45) mmHg ABG pO2 396 H >420 H (83-108) mmHg ABG HCO3 27 H 28 H (21-25) mmol/L ABG Total CO2 28 H 29 H (19-24) mmol/L ABG O2 Saturation 99.7 H 99.8 H (94-97) % ABG Hematocrit 18 L* 17 L* (34.0-46.0) % ABG Sodium 133 L 133 L (135-146) mmol/L ABG Potassium 5.4 H (3.4-4.5) mmol/L ABG Ionized Calcium 3.6 L 3.6 L (4.5-5.3) mg/dL ABG Glucose 108 H 113 H (75-99) mg/dL ABG Lactic Acid (0.5-1.6) mmol/L Hemoglobin 5.9 L* 5.6 L* (13.0-17.5) gm/dL Sodium (137-145) mmol/L BUN (9-20) mg/dL Glucose (74-99) mg/dL POC Glucose (mg/dL) (70-110) mg/dL Calcium (8.4-10.2) mg/dL Ionized Calcium Jessie (4.5-5.3) mg/dL Magnesium (1.6-2.3) mg/dL AST (17-59) U/L Alkaline Phosphatase (38-126) U/L Total Protein (6.3-8.2) g/dL Albumin (3.5-5.0) g/dL Arterial Blood Potassium 5.4 H (3.4-4.5) mmol/L Arterial Blood Glucose 108 H 113 H (75-99) mg/dL Crossmatch See Detail 07/27/23 07/27/23 07/27/23 Range/Units 09:00 16:17 16:18 RBC 2.92 L (4.30-5.90) m/uL Hgb 9.1 L (13.0-17.5) gm/dL Hct 27.6 L (39.0-53.0) % RDW (11.5-15.5) % Plt Count 57 L D (150-450) k/uL Neutrophils # (1.3-7.7) k/uL Lymphocytes # 0.5 L (1.0-4.8) k/uL PT (9.0-12.0) sec INR (<1.2) APTT (22.0-30.0) sec Fibrinogen (200-500) mg/dL ABG pH (7.35-7.45) ABG pCO2 47 H (35-45) mmHg ABG pO2 >420 H (83-108) mmHg ABG HCO3 26 H (21-25) mmol/L ABG Total CO2 27 H (19-24) mmol/L ABG O2 Saturation 99.5 H (94-97) % ABG Hematocrit 16 L* (34.0-46.0) % ABG Sodium 133 L (135-146) mmol/L ABG Potassium 6.2 H* (3.4-4.5) mmol/L ABG Ionized Calcium 3.6 L (4.5-5.3) mg/dL ABG Glucose 161 H (75-99) mg/dL ABG Lactic Acid 2.7 H* (0.5-1.6) mmol/L Hemoglobin 5.3 L* (13.0-17.5) gm/dL Sodium (137-145) mmol/L BUN (9-20) mg/dL Glucose (74-99) mg/dL POC Glucose (mg/dL) 123 H (70-110) mg/dL Calcium (8.4-10.2) mg/dL Ionized Calcium Jessie (4.5-5.3) mg/dL Magnesium (1.6-2.3) mg/dL AST (17-59) U/L Alkaline Phosphatase (38-126) U/L Total Protein (6.3-8.2) g/dL Albumin (3.5-5.0) g/dL Arterial Blood Potassium 6.2 H* (3.4-4.5) mmol/L Arterial Blood Glucose 161 H (75-99) mg/dL Crossmatch 07/27/23 07/27/23 07/27/23 Range/Units 16:18 16:18 16:21 RBC (4.30-5.90) m/uL Hgb (13.0-17.5) gm/dL Hct (39.0-53.0) % RDW (11.5-15.5) % Plt Count (150-450) k/uL Neutrophils # (1.3-7.7) k/uL Lymphocytes # (1.0-4.8) k/uL PT 15.6 H (9.0-12.0) sec INR 1.6 H (<1.2) APTT 64.2 H (22.0-30.0) sec Fibrinogen 156 L (200-500) mg/dL ABG pH 7.20 L (7.35-7.45) ABG pCO2 68 H (35-45) mmHg ABG pO2 59 L* (83-108) mmHg ABG HCO3 27 H (21-25) mmol/L ABG Total CO2 29 H (19-24) mmol/L ABG O2 Saturation 86.0 L (94-97) % ABG Hematocrit (34.0-46.0) % ABG Sodium (135-146) mmol/L ABG Potassium (3.4-4.5) mmol/L ABG Ionized Calcium (4.5-5.3) mg/dL ABG Glucose (75-99) mg/dL ABG Lactic Acid (0.5-1.6) mmol/L Hemoglobin (13.0-17.5) gm/dL Sodium 136 L (137-145) mmol/L BUN 22 H (9-20) mg/dL Glucose 103 H (74-99) mg/dL POC Glucose (mg/dL) (70-110) mg/dL Calcium 5.9 L* (8.4-10.2) mg/dL Ionized Calcium Jessie 3.7 L (4.5-5.3) mg/dL Magnesium 3.0 H (1.6-2.3) mg/dL AST 76 H (17-59) U/L Alkaline Phosphatase 26 L (38-126) U/L Total Protein 3.7 L (6.3-8.2) g/dL Albumin 2.0 L (3.5-5.0) g/dL Arterial Blood Potassium (3.4-4.5) mmol/L Arterial Blood Glucose (75-99) mg/dL Crossmatch 07/27/23 07/27/23 07/27/23 Range/Units 17:27 18:05 18:38 RBC (4.30-5.90) m/uL Hgb (13.0-17.5) gm/dL Hct (39.0-53.0) % RDW (11.5-15.5) % Plt Count (150-450) k/uL Neutrophils # (1.3-7.7) k/uL Lymphocytes # (1.0-4.8) k/uL PT (9.0-12.0) sec INR (<1.2) APTT (22.0-30.0) sec Fibrinogen (200-500) mg/dL ABG pH 7.29 L (7.35-7.45) ABG pCO2 55 H (35-45) mmHg ABG pO2 119 H (83-108) mmHg ABG HCO3 26 H (21-25) mmol/L ABG Total CO2 28 H (19-24) mmol/L ABG O2 Saturation 98.0 H (94-97) % ABG Hematocrit (34.0-46.0) % ABG Sodium (135-146) mmol/L ABG Potassium (3.4-4.5) mmol/L ABG Ionized Calcium (4.5-5.3) mg/dL ABG Glucose (75-99) mg/dL ABG Lactic Acid (0.5-1.6) mmol/L Hemoglobin (13.0-17.5) gm/dL Sodium (137-145) mmol/L BUN (9-20) mg/dL Glucose (74-99) mg/dL POC Glucose (mg/dL) 132 H 134 H (70-110) mg/dL Calcium (8.4-10.2) mg/dL Ionized Calcium Jessie (4.5-5.3) mg/dL Magnesium (1.6-2.3) mg/dL AST (17-59) U/L Alkaline Phosphatase (38-126) U/L Total Protein (6.3-8.2) g/dL Albumin (3.5-5.0) g/dL Arterial Blood Potassium (3.4-4.5) mmol/L Arterial Blood Glucose (75-99) mg/dL Crossmatch 07/27/23 07/27/23 07/27/23 Range/Units 19:30 19:49 19:52 RBC 2.71 L (4.30-5.90) m/uL Hgb 8.8 L (13.0-17.5) gm/dL Hct 25.1 L (39.0-53.0) % RDW 15.6 H (11.5-15.5) % Plt Count 53 L (150-450) k/uL Neutrophils # 9.2 H (1.3-7.7) k/uL Lymphocytes # 0.3 L (1.0-4.8) k/uL PT (9.0-12.0) sec INR (<1.2) APTT (22.0-30.0) sec Fibrinogen (200-500) mg/dL ABG pH (7.35-7.45) ABG pCO2 47 H (35-45) mmHg ABG pO2 127 H (83-108) mmHg ABG HCO3 26 H (21-25) mmol/L ABG Total CO2 27 H (19-24) mmol/L ABG O2 Saturation 99.0 H (94-97) % ABG Hematocrit (34.0-46.0) % ABG Sodium (135-146) mmol/L ABG Potassium (3.4-4.5) mmol/L ABG Ionized Calcium (4.5-5.3) mg/dL ABG Glucose (75-99) mg/dL ABG Lactic Acid (0.5-1.6) mmol/L Hemoglobin (13.0-17.5) gm/dL Sodium (137-145) mmol/L BUN (9-20) mg/dL Glucose (74-99) mg/dL POC Glucose (mg/dL) 127 H (70-110) mg/dL Calcium (8.4-10.2) mg/dL Ionized Calcium Jessie (4.5-5.3) mg/dL Magnesium (1.6-2.3) mg/dL AST (17-59) U/L Alkaline Phosphatase (38-126) U/L Total Protein (6.3-8.2) g/dL Albumin (3.5-5.0) g/dL Arterial Blood Potassium (3.4-4.5) mmol/L Arterial Blood Glucose (75-99) mg/dL Crossmatch 07/27/23 07/27/23 07/27/23 Range/Units 20:58 21:49 21:50 RBC 2.29 L (4.30-5.90) m/uL Hgb 7.3 L D (13.0-17.5) gm/dL Hct 21.1 L (39.0-53.0) % RDW 15.8 H (11.5-15.5) % Plt Count 50 L (150-450) k/uL Neutrophils # (1.3-7.7) k/uL Lymphocytes # 0.3 L (1.0-4.8) k/uL PT (9.0-12.0) sec INR (<1.2) APTT (22.0-30.0) sec Fibrinogen (200-500) mg/dL ABG pH (7.35-7.45) ABG pCO2 (35-45) mmHg ABG pO2 (83-108) mmHg ABG HCO3 (21-25) mmol/L ABG Total CO2 (19-24) mmol/L ABG O2 Saturation (94-97) % ABG Hematocrit (34.0-46.0) % ABG Sodium (135-146) mmol/L ABG Potassium (3.4-4.5) mmol/L ABG Ionized Calcium (4.5-5.3) mg/dL ABG Glucose (75-99) mg/dL ABG Lactic Acid (0.5-1.6) mmol/L Hemoglobin (13.0-17.5) gm/dL Sodium (137-145) mmol/L BUN (9-20) mg/dL Glucose (74-99) mg/dL POC Glucose (mg/dL) 129 H 136 H (70-110) mg/dL Calcium (8.4-10.2) mg/dL Ionized Calcium Jessie (4.5-5.3) mg/dL Magnesium (1.6-2.3) mg/dL AST (17-59) U/L Alkaline Phosphatase (38-126) U/L Total Protein (6.3-8.2) g/dL Albumin (3.5-5.0) g/dL Arterial Blood Potassium (3.4-4.5) mmol/L Arterial Blood Glucose (75-99) mg/dL Crossmatch 07/27/23 07/27/23 07/27/23 Range/Units 22:18 22:51 23:54 RBC (4.30-5.90) m/uL Hgb (13.0-17.5) gm/dL Hct (39.0-53.0) % RDW (11.5-15.5) % Plt Count (150-450) k/uL Neutrophils # (1.3-7.7) k/uL Lymphocytes # (1.0-4.8) k/uL PT (9.0-12.0) sec INR (<1.2) APTT (22.0-30.0) sec Fibrinogen (200-500) mg/dL ABG pH 7.33 L (7.35-7.45) ABG pCO2 48 H (35-45) mmHg ABG pO2 80 L (83-108) mmHg ABG HCO3 (21-25) mmol/L ABG Total CO2 27 H (19-24) mmol/L ABG O2 Saturation (94-97) % ABG Hematocrit (34.0-46.0) % ABG Sodium (135-146) mmol/L ABG Potassium (3.4-4.5) mmol/L ABG Ionized Calcium (4.5-5.3) mg/dL ABG Glucose (75-99) mg/dL ABG Lactic Acid (0.5-1.6) mmol/L Hemoglobin (13.0-17.5) gm/dL Sodium (137-145) mmol/L BUN (9-20) mg/dL Glucose (74-99) mg/dL POC Glucose (mg/dL) 143 H 145 H (70-110) mg/dL Calcium (8.4-10.2) mg/dL Ionized Calcium Jessie (4.5-5.3) mg/dL Magnesium (1.6-2.3) mg/dL AST (17-59) U/L Alkaline Phosphatase (38-126) U/L Total Protein (6.3-8.2) g/dL Albumin (3.5-5.0) g/dL Arterial Blood Potassium (3.4-4.5) mmol/L Arterial Blood Glucose (75-99) mg/dL Crossmatch 07/28/23 07/28/23 07/28/23 Range/Units 00:59 01:53 02:52 RBC (4.30-5.90) m/uL Hgb (13.0-17.5) gm/dL Hct (39.0-53.0) % RDW (11.5-15.5) % Plt Count (150-450) k/uL Neutrophils # (1.3-7.7) k/uL Lymphocytes # (1.0-4.8) k/uL PT (9.0-12.0) sec INR (<1.2) APTT (22.0-30.0) sec Fibrinogen (200-500) mg/dL ABG pH (7.35-7.45) ABG pCO2 (35-45) mmHg ABG pO2 (83-108) mmHg ABG HCO3 (21-25) mmol/L ABG Total CO2 (19-24) mmol/L ABG O2 Saturation (94-97) % ABG Hematocrit (34.0-46.0) % ABG Sodium (135-146) mmol/L ABG Potassium (3.4-4.5) mmol/L ABG Ionized Calcium (4.5-5.3) mg/dL ABG Glucose (75-99) mg/dL ABG Lactic Acid (0.5-1.6) mmol/L Hemoglobin (13.0-17.5) gm/dL Sodium (137-145) mmol/L BUN (9-20) mg/dL Glucose (74-99) mg/dL POC Glucose (mg/dL) 151 H 141 H 132 H (70-110) mg/dL Calcium (8.4-10.2) mg/dL Ionized Calcium Jessie (4.5-5.3) mg/dL Magnesium (1.6-2.3) mg/dL AST (17-59) U/L Alkaline Phosphatase (38-126) U/L Total Protein (6.3-8.2) g/dL Albumin (3.5-5.0) g/dL Arterial Blood Potassium (3.4-4.5) mmol/L Arterial Blood Glucose (75-99) mg/dL Crossmatch 07/28/23 07/28/23 07/28/23 Range/Units 03:00 03:00 04:59 RBC 2.28 L (4.30-5.90) m/uL Hgb 7.2 L (13.0-17.5) gm/dL Hct 20.9 L (39.0-53.0) % RDW 15.8 H (11.5-15.5) % Plt Count 50 L (150-450) k/uL Neutrophils # (1.3-7.7) k/uL Lymphocytes # 0.4 L (1.0-4.8) k/uL PT (9.0-12.0) sec INR (<1.2) APTT (22.0-30.0) sec Fibrinogen (200-500) mg/dL ABG pH (7.35-7.45) ABG pCO2 (35-45) mmHg ABG pO2 (83-108) mmHg ABG HCO3 (21-25) mmol/L ABG Total CO2 (19-24) mmol/L ABG O2 Saturation (94-97) % ABG Hematocrit (34.0-46.0) % ABG Sodium (135-146) mmol/L ABG Potassium (3.4-4.5) mmol/L ABG Ionized Calcium (4.5-5.3) mg/dL ABG Glucose (75-99) mg/dL ABG Lactic Acid (0.5-1.6) mmol/L Hemoglobin (13.0-17.5) gm/dL Sodium 135 L (137-145) mmol/L BUN 23 H (9-20) mg/dL Glucose 108 H (74-99) mg/dL POC Glucose (mg/dL) 157 H (70-110) mg/dL Calcium 7.0 L (8.4-10.2) mg/dL Ionized Calcium Jessie 4.2 L (4.5-5.3) mg/dL Magnesium 2.5 H (1.6-2.3) mg/dL AST 142 H (17-59) U/L Alkaline Phosphatase 34 L (38-126) U/L Total Protein 4.3 L (6.3-8.2) g/dL Albumin 2.6 L (3.5-5.0) g/dL Arterial Blood Potassium (3.4-4.5) mmol/L Arterial Blood Glucose (75-99) mg/dL Crossmatch 07/28/23 07/28/23 Range/Units 06:06 06:49 RBC (4.30-5.90) m/uL Hgb (13.0-17.5) gm/dL Hct (39.0-53.0) % RDW (11.5-15.5) % Plt Count (150-450) k/uL Neutrophils # (1.3-7.7) k/uL Lymphocytes # (1.0-4.8) k/uL PT (9.0-12.0) sec INR (<1.2) APTT (22.0-30.0) sec Fibrinogen (200-500) mg/dL ABG pH (7.35-7.45) ABG pCO2 (35-45) mmHg ABG pO2 (83-108) mmHg ABG HCO3 (21-25) mmol/L ABG Total CO2 (19-24) mmol/L ABG O2 Saturation (94-97) % ABG Hematocrit (34.0-46.0) % ABG Sodium (135-146) mmol/L ABG Potassium (3.4-4.5) mmol/L ABG Ionized Calcium (4.5-5.3) mg/dL ABG Glucose (75-99) mg/dL ABG Lactic Acid (0.5-1.6) mmol/L Hemoglobin (13.0-17.5) gm/dL Sodium (137-145) mmol/L BUN (9-20) mg/dL Glucose (74-99) mg/dL POC Glucose (mg/dL) 148 H 154 H (70-110) mg/dL Calcium (8.4-10.2) mg/dL Ionized Calcium Jessie (4.5-5.3) mg/dL Magnesium (1.6-2.3) mg/dL AST (17-59) U/L Alkaline Phosphatase (38-126) U/L Total Protein (6.3-8.2) g/dL Albumin (3.5-5.0) g/dL Arterial Blood Potassium (3.4-4.5) mmol/L Arterial Blood Glucose (75-99) mg/dL Crossmatch - Imaging and Cardiology Chest x-ray: image reviewed Assessment and Plan Assessment: Severe diffuse calcific triple-vessel coronary artery disease with chronically occluded RCA and first OM, unstable angina, status post 3V CABG Severe mitral valve regurgitation with prolapse of P2 with ruptured chord, status post complex mitral valve repair Moderate tricuspid valve regurgitation with severe pulmonary hypertension, status post tricuspid valve repair History of hypertension Hyperlipidemia, treated, cholesterol 121, LDL 60.5treated Abdominal aortic aneurysm with calcification of the posterior aspect of the ascending aorta Chronic ongoing tobacco dependence Moderate restrictive lung disease, preoperative FEV1 54% of predicted GERD Depression Postoperative acute blood loss anemia and thrombocytopenia, expected Plan: Continue to optimize medical management with low dose aspirin, plavix, statin and beta yamile. Will increase beta yamile as able Discontinue IV NTG and primacor Wean oxygen as tolerated. Encourage incentive spirometry 10 x every hour while awake. Bronchodilators per pulmonology Increase activity as tolerated. PT/OT/cardiac rehab consulted Will monitor daily labs and CXR. Electrolyte replacement per protocol. Will send HIT panel GI/DVT prophylaxis Pain control with current medication regimen. Will switch to norco, avoid toradol due to thrombocytopenia Discontinue [place], connect cordis to continuous CVP monitoring Insulin management per internal medicine, patient is not diabetic with preoperative HgbA1c 5.8%, but needs tight blood sugar control to prevent infection Will add Xanax due to anxiety, patient has taken before Continue chest tubes for another 24 hours Continue irizarry catheter for another 24 hours. Continue to record strict accurate I/Os Daily weights Smoking cessation counseling and education provided Will discontinue ANGELES drain More recommendations to follow based on patient's progress
[2023-07-28 10:13] LABS: Glucose,Whole Blood 111 mg/dL (70-110)
--- NOTE | 2023-07-28 11:14 | P.PN ---
Subjective HISTORY OF PRESENT ILLNESS: This is a 73-year-old male who was admitted to the hospital secondary to non- STEMI. Patient underwent cardiac catheterization revealing severe triple vessel disease. 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 Patient examined this morning at the bedside. Patient denies any chest pain or pressure. He denies shortness of breath. He does report that he fell overnight and hit his nose. He reports feeling a little bit lightheaded. Vital signs have been stable. Telemetry reveals sinus mechanism. 07/28 Patient seen and examined. Patient underwent CABG with GIBBS to LAD, SVG to OM, SVG to PDA, mitral valve repair with NeoChords and ring annuloplasty as well as tricupid ring annuloplasty and exclusion of KASANDRA on 07/27/2023. Patient has been doing okay however has been feeling somewhat anxious. Milrinone was discontinued this morning. Blood pressures have been borderline in the 100-110 systolic. Patient still having some incision pain. Denies any significant shortness breath. Does not have an appetite. CVP reading 9. Has been able to tolerate low-dose metoprolol. Hemoglobin down to 7.2, platelets 50, creatinine 0.9, AST 142, ALT 24, albumin 2.6. Maintaining sinus rhythm. PHYSICAL EXAM: VITAL SIGNS: Reviewed. GENERAL: Well-developed in no acute distress. NECK: Supple. No JVD or thyromegaly LUNGS: Respirations even and unlabored. Lungs essentially clear to auscultation bilaterally. HEART: Regular rate and rhythm. S1 and S2 heard. Systolic murmur noted. EXTREMITIES: Normal range of motion. No clubbing or cyanosis. Peripheral pulses intact. 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 Monitor hemoglobin and platelets closely. Monitor for any bleeding. Transfuse as needed. Has been weaned off of pressors. Is currently able to tolerate low-dose metoprolol. Continue with current medical regimen. Further recommendations to follow. Objective - Vital Signs Vital signs: Vital Signs Temp 98.8 F 07/28/23 08:00 Pulse 63 07/28/23 10:00 Resp 20 07/28/23 10:00 BP 116/49 07/28/23 06:15 Pulse Ox 94 L 07/28/23 10:00 FiO2 50 07/27/23 22:02 Intake & Output 07/27/23 07/28/23 07/28/23 18:59 06:59 18:59 Intake Total 7737.911 8553.337 424.582 Output Total 3895 1595 255 Balance -2773.755 -3.663 169.582 Weight 74.5 kg Intake: IV 260 1378 366 0.9 150 600 Albumin Human 5% 250 ml 500 In Empty Bag 1 bag @ 250 mls/hr IVPB Q1HR PRN Rx#: [id number] CI/CO 30 170 20 Calcium Gluconate in NaCl 100 2 gm In Saline 1 100ml. bag @ 100 mls/hr IVPB ONCE ONE Rx#:[id number] Pressure bags (0.9 Sodium 27 108 36 Chloride) Sodium Chloride 0.9% 1, 160 000 ml @ 20 mls/hr IV . Q24H ANCA Rx#:[id number] ceFAZolin 2 gm In Sodium 50 Chloride 0.9% 50 ml @ 100 mls/hr IVPB Q8H ANCA Rx#: [id number] Intake, IV Titration 5.245 63.337 58.582 Amount Clevidipine Butyrate 25 1 mg In Empty Bag 1 bag @ 1 MG/HR 2 mls/hr IV .Q24H ANCA Rx#:[id number] Insulin Regular 100 unit 17.506 9.538 In Sodium Chloride 0.9% 100 ml @ Per Protocol IV .Q0M ANCA Rx#:[id number] Milrinone-D5w Pmx 20 mg 49.044 In Dextrose/Water 1 100ml .bag @ 0.25 MCG/KG/MIN 5. 443 mls/hr IV .[id number] ANCA Rx#:[id number] propofoL 1,000 mg In 4.245 45.831 Empty Bag 1 bag @ Titrate IV .Q0M ANCA Rx#: [id number] Oral 150 Blood Product 606 Rc As-1 Unit 310 [id number] Rc Pheresis 2 As3 Unit 296 [id number] Albumin 250 Albumin Human 5% 250 ml 250 In Empty Bag 1 bag @ 250 mls/hr IVPB Q1HR PRN Rx#: [id number] Output: Chest Tube Drainage 510 660 90 L. plurel 260 290 30 MS 250 370 60 Drainage 60 50 15 Left Calf 60 50 15 Urine 1125 885 150 Estimated Blood Loss 2200 Other: Voiding Method Indwelling Catheter Indwelling Catheter Indwelling Catheter ABP, PAP, CO, CI - Last Documented Arterial Blood Pressure 104/35 Pulmonary Artery Pressure 44/12 Cardiac Output 4 Cardiac Index 2.2 - Labs CBC & Chem 7: 07/28/23 03:00 07/28/23 03:00 Labs: Abnormal Lab Results - Last 24 Hours (Table) 07/26/23 07/27/23 07/27/23 Range/Units 07:32 09:00 09:00 RBC (4.30-5.90) m/uL Hgb (13.0-17.5) gm/dL Hct (39.0-53.0) % RDW (11.5-15.5) % Plt Count (150-450) k/uL Neutrophils # (1.3-7.7) k/uL Lymphocytes # (1.0-4.8) k/uL PT (9.0-12.0) sec INR (<1.2) APTT (22.0-30.0) sec Fibrinogen (200-500) mg/dL ABG pH 7.53 H 7.52 H (7.35-7.45) ABG pCO2 33 L 34 L (35-45) mmHg ABG pO2 396 H >420 H (83-108) mmHg ABG HCO3 27 H 28 H (21-25) mmol/L ABG Total CO2 28 H 29 H (19-24) mmol/L ABG O2 Saturation 99.7 H 99.8 H (94-97) % ABG Hematocrit 18 L* 17 L* (34.0-46.0) % ABG Sodium 133 L 133 L (135-146) mmol/L ABG Potassium 5.4 H (3.4-4.5) mmol/L ABG Ionized Calcium 3.6 L 3.6 L (4.5-5.3) mg/dL ABG Glucose 108 H 113 H (75-99) mg/dL ABG Lactic Acid (0.5-1.6) mmol/L Hemoglobin 5.9 L* 5.6 L* (13.0-17.5) gm/dL Sodium (137-145) mmol/L BUN (9-20) mg/dL Glucose (74-99) mg/dL POC Glucose (mg/dL) (70-110) mg/dL Calcium (8.4-10.2) mg/dL Ionized Calcium Jessie (4.5-5.3) mg/dL Magnesium (1.6-2.3) mg/dL AST (17-59) U/L Alkaline Phosphatase (38-126) U/L Total Protein (6.3-8.2) g/dL Albumin (3.5-5.0) g/dL Arterial Blood Potassium 5.4 H (3.4-4.5) mmol/L Arterial Blood Glucose 108 H 113 H (75-99) mg/dL Crossmatch See Detail 07/27/23 07/27/23 07/27/23 Range/Units 09:00 16:17 16:18 RBC 2.92 L (4.30-5.90) m/uL Hgb 9.1 L (13.0-17.5) gm/dL Hct 27.6 L (39.0-53.0) % RDW (11.5-15.5) % Plt Count 57 L D (150-450) k/uL Neutrophils # (1.3-7.7) k/uL Lymphocytes # 0.5 L (1.0-4.8) k/uL PT (9.0-12.0) sec INR (<1.2) APTT (22.0-30.0) sec Fibrinogen (200-500) mg/dL ABG pH (7.35-7.45) ABG pCO2 47 H (35-45) mmHg ABG pO2 >420 H (83-108) mmHg ABG HCO3 26 H (21-25) mmol/L ABG Total CO2 27 H (19-24) mmol/L ABG O2 Saturation 99.5 H (94-97) % ABG Hematocrit 16 L* (34.0-46.0) % ABG Sodium 133 L (135-146) mmol/L ABG Potassium 6.2 H* (3.4-4.5) mmol/L ABG Ionized Calcium 3.6 L (4.5-5.3) mg/dL ABG Glucose 161 H (75-99) mg/dL ABG Lactic Acid 2.7 H* (0.5-1.6) mmol/L Hemoglobin 5.3 L* (13.0-17.5) gm/dL Sodium (137-145) mmol/L BUN (9-20) mg/dL Glucose (74-99) mg/dL POC Glucose (mg/dL) 123 H (70-110) mg/dL Calcium (8.4-10.2) mg/dL Ionized Calcium Jessie (4.5-5.3) mg/dL Magnesium (1.6-2.3) mg/dL AST (17-59) U/L Alkaline Phosphatase (38-126) U/L Total Protein (6.3-8.2) g/dL Albumin (3.5-5.0) g/dL Arterial Blood Potassium 6.2 H* (3.4-4.5) mmol/L Arterial Blood Glucose 161 H (75-99) mg/dL Crossmatch 07/27/23 07/27/23 07/27/23 Range/Units 16:18 16:18 16:21 RBC (4.30-5.90) m/uL Hgb (13.0-17.5) gm/dL Hct (39.0-53.0) % RDW (11.5-15.5) % Plt Count (150-450) k/uL Neutrophils # (1.3-7.7) k/uL Lymphocytes # (1.0-4.8) k/uL PT 15.6 H (9.0-12.0) sec INR 1.6 H (<1.2) APTT 64.2 H (22.0-30.0) sec Fibrinogen 156 L (200-500) mg/dL ABG pH 7.20 L (7.35-7.45) ABG pCO2 68 H (35-45) mmHg ABG pO2 59 L* (83-108) mmHg ABG HCO3 27 H (21-25) mmol/L ABG Total CO2 29 H (19-24) mmol/L ABG O2 Saturation 86.0 L (94-97) % ABG Hematocrit (34.0-46.0) % ABG Sodium (135-146) mmol/L ABG Potassium (3.4-4.5) mmol/L ABG Ionized Calcium (4.5-5.3) mg/dL ABG Glucose (75-99) mg/dL ABG Lactic Acid (0.5-1.6) mmol/L Hemoglobin (13.0-17.5) gm/dL Sodium 136 L (137-145) mmol/L BUN 22 H (9-20) mg/dL Glucose 103 H (74-99) mg/dL POC Glucose (mg/dL) (70-110) mg/dL Calcium 5.9 L* (8.4-10.2) mg/dL Ionized Calcium Jessei 3.7 L (4.5-5.3) mg/dL Magnesium 3.0 H (1.6-2.3) mg/dL AST 76 H (17-59) U/L Alkaline Phosphatase 26 L (38-126) U/L Total Protein 3.7 L (6.3-8.2) g/dL Albumin 2.0 L (3.5-5.0) g/dL Arterial Blood Potassium (3.4-4.5) mmol/L Arterial Blood Glucose (75-99) mg/dL Crossmatch 07/27/23 07/27/23 07/27/23 Range/Units 17:27 18:05 18:38 RBC (4.30-5.90) m/uL Hgb (13.0-17.5) gm/dL Hct (39.0-53.0) % RDW (11.5-15.5) % Plt Count (150-450) k/uL Neutrophils # (1.3-7.7) k/uL Lymphocytes # (1.0-4.8) k/uL PT (9.0-12.0) sec INR (<1.2) APTT (22.0-30.0) sec Fibrinogen (200-500) mg/dL ABG pH 7.29 L (7.35-7.45) ABG pCO2 55 H (35-45) mmHg ABG pO2 119 H (83-108) mmHg ABG HCO3 26 H (21-25) mmol/L ABG Total CO2 28 H (19-24) mmol/L ABG O2 Saturation 98.0 H (94-97) % ABG Hematocrit (34.0-46.0) % ABG Sodium (135-146) mmol/L ABG Potassium (3.4-4.5) mmol/L ABG Ionized Calcium (4.5-5.3) mg/dL ABG Glucose (75-99) mg/dL ABG Lactic Acid (0.5-1.6) mmol/L Hemoglobin (13.0-17.5) gm/dL Sodium (137-145) mmol/L BUN (9-20) mg/dL Glucose (74-99) mg/dL POC Glucose (mg/dL) 132 H 134 H (70-110) mg/dL Calcium (8.4-10.2) mg/dL Ionized Calcium Jessie (4.5-5.3) mg/dL Magnesium (1.6-2.3) mg/dL AST (17-59) U/L Alkaline Phosphatase (38-126) U/L Total Protein (6.3-8.2) g/dL Albumin (3.5-5.0) g/dL Arterial Blood Potassium (3.4-4.5) mmol/L Arterial Blood Glucose (75-99) mg/dL Crossmatch 07/27/23 07/27/23 07/27/23 Range/Units 19:30 19:49 19:52 RBC 2.71 L (4.30-5.90) m/uL Hgb 8.8 L (13.0-17.5) gm/dL Hct 25.1 L (39.0-53.0) % RDW 15.6 H (11.5-15.5) % Plt Count 53 L (150-450) k/uL Neutrophils # 9.2 H (1.3-7.7) k/uL Lymphocytes # 0.3 L (1.0-4.8) k/uL PT (9.0-12.0) sec INR (<1.2) APTT (22.0-30.0) sec Fibrinogen (200-500) mg/dL ABG pH (7.35-7.45) ABG pCO2 47 H (35-45) mmHg ABG pO2 127 H (83-108) mmHg ABG HCO3 26 H (21-25) mmol/L ABG Total CO2 27 H (19-24) mmol/L ABG O2 Saturation 99.0 H (94-97) % ABG Hematocrit (34.0-46.0) % ABG Sodium (135-146) mmol/L ABG Potassium (3.4-4.5) mmol/L ABG Ionized Calcium (4.5-5.3) mg/dL ABG Glucose (75-99) mg/dL ABG Lactic Acid (0.5-1.6) mmol/L Hemoglobin (13.0-17.5) gm/dL Sodium (137-145) mmol/L BUN (9-20) mg/dL Glucose (74-99) mg/dL POC Glucose (mg/dL) 127 H (70-110) mg/dL Calcium (8.4-10.2) mg/dL Ionized Calcium Jessie (4.5-5.3) mg/dL Magnesium (1.6-2.3) mg/dL AST (17-59) U/L Alkaline Phosphatase (38-126) U/L Total Protein (6.3-8.2) g/dL Albumin (3.5-5.0) g/dL Arterial Blood Potassium (3.4-4.5) mmol/L Arterial Blood Glucose (75-99) mg/dL Crossmatch 07/27/23 07/27/23 07/27/23 Range/Units 20:58 21:49 21:50 RBC 2.29 L (4.30-5.90) m/uL Hgb 7.3 L D (13.0-17.5) gm/dL Hct 21.1 L (39.0-53.0) % RDW 15.8 H (11.5-15.5) % Plt Count 50 L (150-450) k/uL Neutrophils # (1.3-7.7) k/uL Lymphocytes # 0.3 L (1.0-4.8) k/uL PT (9.0-12.0) sec INR (<1.2) APTT (22.0-30.0) sec Fibrinogen (200-500) mg/dL ABG pH (7.35-7.45) ABG pCO2 (35-45) mmHg ABG pO2 (83-108) mmHg ABG HCO3 (21-25) mmol/L ABG Total CO2 (19-24) mmol/L ABG O2 Saturation (94-97) % ABG Hematocrit (34.0-46.0) % ABG Sodium (135-146) mmol/L ABG Potassium (3.4-4.5) mmol/L ABG Ionized Calcium (4.5-5.3) mg/dL ABG Glucose (75-99) mg/dL ABG Lactic Acid (0.5-1.6) mmol/L Hemoglobin (13.0-17.5) gm/dL Sodium (137-145) mmol/L BUN (9-20) mg/dL Glucose (74-99) mg/dL POC Glucose (mg/dL) 129 H 136 H (70-110) mg/dL Calcium (8.4-10.2) mg/dL Ionized Calcium Jessie (4.5-5.3) mg/dL Magnesium (1.6-2.3) mg/dL AST (17-59) U/L Alkaline Phosphatase (38-126) U/L Total Protein (6.3-8.2) g/dL Albumin (3.5-5.0) g/dL Arterial Blood Potassium (3.4-4.5) mmol/L Arterial Blood Glucose (75-99) mg/dL Crossmatch 07/27/23 07/27/23 07/27/23 Range/Units 22:18 22:51 23:54 RBC (4.30-5.90) m/uL Hgb (13.0-17.5) gm/dL Hct (39.0-53.0) % RDW (11.5-15.5) % Plt Count (150-450) k/uL Neutrophils # (1.3-7.7) k/uL Lymphocytes # (1.0-4.8) k/uL PT (9.0-12.0) sec INR (<1.2) APTT (22.0-30.0) sec Fibrinogen (200-500) mg/dL ABG pH 7.33 L (7.35-7.45) ABG pCO2 48 H (35-45) mmHg ABG pO2 80 L (83-108) mmHg ABG HCO3 (21-25) mmol/L ABG Total CO2 27 H (19-24) mmol/L ABG O2 Saturation (94-97) % ABG Hematocrit (34.0-46.0) % ABG Sodium (135-146) mmol/L ABG Potassium (3.4-4.5) mmol/L ABG Ionized Calcium (4.5-5.3) mg/dL ABG Glucose (75-99) mg/dL ABG Lactic Acid (0.5-1.6) mmol/L Hemoglobin (13.0-17.5) gm/dL Sodium (137-145) mmol/L BUN (9-20) mg/dL Glucose (74-99) mg/dL POC Glucose (mg/dL) 143 H 145 H (70-110) mg/dL Calcium (8.4-10.2) mg/dL Ionized Calcium Jessie (4.5-5.3) mg/dL Magnesium (1.6-2.3) mg/dL AST (17-59) U/L Alkaline Phosphatase (38-126) U/L Total Protein (6.3-8.2) g/dL Albumin (3.5-5.0) g/dL Arterial Blood Potassium (3.4-4.5) mmol/L Arterial Blood Glucose (75-99) mg/dL Crossmatch 07/28/23 07/28/23 07/28/23 Range/Units 00:59 01:53 02:52 RBC (4.30-5.90) m/uL Hgb (13.0-17.5) gm/dL Hct (39.0-53.0) % RDW (11.5-15.5) % Plt Count (150-450) k/uL Neutrophils # (1.3-7.7) k/uL Lymphocytes # (1.0-4.8) k/uL PT (9.0-12.0) sec INR (<1.2) APTT (22.0-30.0) sec Fibrinogen (200-500) mg/dL ABG pH (7.35-7.45) ABG pCO2 (35-45) mmHg ABG pO2 (83-108) mmHg ABG HCO3 (21-25) mmol/L ABG Total CO2 (19-24) mmol/L ABG O2 Saturation (94-97) % ABG Hematocrit (34.0-46.0) % ABG Sodium (135-146) mmol/L ABG Potassium (3.4-4.5) mmol/L ABG Ionized Calcium (4.5-5.3) mg/dL ABG Glucose (75-99) mg/dL ABG Lactic Acid (0.5-1.6) mmol/L Hemoglobin (13.0-17.5) gm/dL Sodium (137-145) mmol/L BUN (9-20) mg/dL Glucose (74-99) mg/dL POC Glucose (mg/dL) 151 H 141 H 132 H (70-110) mg/dL Calcium (8.4-10.2) mg/dL Ionized Calcium Jessie (4.5-5.3) mg/dL Magnesium (1.6-2.3) mg/dL AST (17-59) U/L Alkaline Phosphatase (38-126) U/L Total Protein (6.3-8.2) g/dL Albumin (3.5-5.0) g/dL Arterial Blood Potassium (3.4-4.5) mmol/L Arterial Blood Glucose (75-99) mg/dL Crossmatch 07/28/23 07/28/23 07/28/23 Range/Units 03:00 03:00 04:59 RBC 2.28 L (4.30-5.90) m/uL Hgb 7.2 L (13.0-17.5) gm/dL Hct 20.9 L (39.0-53.0) % RDW 15.8 H (11.5-15.5) % Plt Count 50 L (150-450) k/uL Neutrophils # (1.3-7.7) k/uL Lymphocytes # 0.4 L (1.0-4.8) k/uL PT (9.0-12.0) sec INR (<1.2) APTT (22.0-30.0) sec Fibrinogen (200-500) mg/dL ABG pH (7.35-7.45) ABG pCO2 (35-45) mmHg ABG pO2 (83-108) mmHg ABG HCO3 (21-25) mmol/L ABG Total CO2 (19-24) mmol/L ABG O2 Saturation (94-97) % ABG Hematocrit (34.0-46.0) % ABG Sodium (135-146) mmol/L ABG Potassium (3.4-4.5) mmol/L ABG Ionized Calcium (4.5-5.3) mg/dL ABG Glucose (75-99) mg/dL ABG Lactic Acid (0.5-1.6) mmol/L Hemoglobin (13.0-17.5) gm/dL Sodium 135 L (137-145) mmol/L BUN 23 H (9-20) mg/dL Glucose 108 H (74-99) mg/dL POC Glucose (mg/dL) 157 H (70-110) mg/dL Calcium 7.0 L (8.4-10.2) mg/dL Ionized Calcium Jessie 4.2 L (4.5-5.3) mg/dL Magnesium 2.5 H (1.6-2.3) mg/dL AST 142 H (17-59) U/L Alkaline Phosphatase 34 L (38-126) U/L Total Protein 4.3 L (6.3-8.2) g/dL Albumin 2.6 L (3.5-5.0) g/dL Arterial Blood Potassium (3.4-4.5) mmol/L Arterial Blood Glucose (75-99) mg/dL Crossmatch 07/28/23 07/28/23 07/28/23 Range/Units 06:06 06:49 09:08 RBC (4.30-5.90) m/uL Hgb (13.0-17.5) gm/dL Hct (39.0-53.0) % RDW (11.5-15.5) % Plt Count (150-450) k/uL Neutrophils # (1.3-7.7) k/uL Lymphocytes # (1.0-4.8) k/uL PT (9.0-12.0) sec INR (<1.2) APTT (22.0-30.0) sec Fibrinogen (200-500) mg/dL ABG pH (7.35-7.45) ABG pCO2 (35-45) mmHg ABG pO2 (83-108) mmHg ABG HCO3 (21-25) mmol/L ABG Total CO2 (19-24) mmol/L ABG O2 Saturation (94-97) % ABG Hematocrit (34.0-46.0) % ABG Sodium (135-146) mmol/L ABG Potassium (3.4-4.5) mmol/L ABG Ionized Calcium (4.5-5.3) mg/dL ABG Glucose (75-99) mg/dL ABG Lactic Acid (0.5-1.6) mmol/L Hemoglobin (13.0-17.5) gm/dL Sodium (137-145) mmol/L BUN (9-20) mg/dL Glucose (74-99) mg/dL POC Glucose (mg/dL) 148 H 154 H 147 H (70-110) mg/dL Calcium (8.4-10.2) mg/dL Ionized Calcium Jessie (4.5-5.3) mg/dL Magnesium (1.6-2.3) mg/dL AST (17-59) U/L Alkaline Phosphatase (38-126) U/L Total Protein (6.3-8.2) g/dL Albumin (3.5-5.0) g/dL Arterial Blood Potassium (3.4-4.5) mmol/L Arterial Blood Glucose (75-99) mg/dL Crossmatch 07/28/23 Range/Units 10:11 RBC (4.30-5.90) m/uL Hgb (13.0-17.5) gm/dL Hct (39.0-53.0) % RDW (11.5-15.5) % Plt Count (150-450) k/uL Neutrophils # (1.3-7.7) k/uL Lymphocytes # (1.0-4.8) k/uL PT (9.0-12.0) sec INR (<1.2) APTT (22.0-30.0) sec Fibrinogen (200-500) mg/dL ABG pH (7.35-7.45) ABG pCO2 (35-45) mmHg ABG pO2 (83-108) mmHg ABG HCO3 (21-25) mmol/L ABG Total CO2 (19-24) mmol/L ABG O2 Saturation (94-97) % ABG Hematocrit (34.0-46.0) % ABG Sodium (135-146) mmol/L ABG Potassium (3.4-4.5) mmol/L ABG Ionized Calcium (4.5-5.3) mg/dL ABG Glucose (75-99) mg/dL ABG Lactic Acid (0.5-1.6) mmol/L Hemoglobin (13.0-17.5) gm/dL Sodium (137-145) mmol/L BUN (9-20) mg/dL Glucose (74-99) mg/dL POC Glucose (mg/dL) 111 H (70-110) mg/dL Calcium (8.4-10.2) mg/dL Ionized Calcium Jessie (4.5-5.3) mg/dL Magnesium (1.6-2.3) mg/dL AST (17-59) U/L Alkaline Phosphatase (38-126) U/L Total Protein (6.3-8.2) g/dL Albumin (3.5-5.0) g/dL Arterial Blood Potassium (3.4-4.5) mmol/L Arterial Blood Glucose (75-99) mg/dL Crossmatch
[2023-07-28] MEDS: HYDROcodone/APAP 10-325MG 1 EACH TAB PO PRN ×3 (11:54→20:15)
[2023-07-28] MEDS: MILRINONE-D5W PMX 20 MG in DEXTROSE/WATER 1 100ML.BAG IV SCH (11:54)
[2023-07-28 12:06] LABS: Glucose,Whole Blood 151 mg/dL (70-110)
--- NOTE | 2023-07-28 12:34 | P.PN ---
Subjective Progress Note Date: 07/28/23 Principal diagnosis: Coronary artery disease. The patient is seen today 07/22/2023 in follow-up on the selective care unit. He is currently sitting up in bed. Awake and alert in no acute distress. He is maintaining O2 saturations in the 90s on 3 L/m per nasal cannula. He is pulling approximately 1200 ML's on his incentive spirometer. He continues to be worked up for possible bypass surgery along with mitral valve and tricuspid valve repairs. FEV1 value was 1.26 or 54% of predicted. NicoDerm patch remains in place. The patient is seen today 07/23/2023 in follow-up on the selective care unit. He is currently sitting up in a chair at the bedside. Awake and alert in no acute distress. Denies any worsening shortness of breath cough or congestion. Denies any chest pain. He is maintaining good O2 saturations up to 97% on room air. Afebrile. Sodium 135. Potassium 3.7. Bicarb 27. BUN 22. Creatinine 0.90. NicoDerm patch in place. The patient is seen today 07/24/2023 in follow-up on the selective care unit. Awake and alert in no acute distress. Sitting in bed. Denies any chest pain. No palpitations. No worsening shortness of breath or cough. He did have a nightmare and some confusion last evening. Oriented 3 today. Maintaining O2 saturations in the 90s on 2 L/m per nasal cannula. He is afebrile. Hemodynamically stable. NicoDerm patch in place. The patient is seen today 07/25/2023 in follow-up on the selective care unit. He is ambulating in his room. Awake and alert in no acute distress. Denies any chest pain. Denies any worsening shortness of breath, cough or congestion. He is maintaining good O2 saturations in the 90s on 2 L/m per nasal cannula. Afebrile. Hemodynamically stable. Sodium 134. Potassium 4.3. Bicarb 28. BUN 19. Creatinine 0.87. Glucose 113. NicoDerm patch remains in place. Progress note dated 07/26/2023. The patient is seen today in room 356. The patient is scheduled to have bypass grafting, on July 27. Currently he is on 2 L of oxygen. No IV fluids. He is sitting at the bedside. White count 5.4, hemoglobin 10.4, hematocrit 30.9, with a normal platelet count. Sodium 132, potassium 4.3, chlorides 98, CO2 29, BUN 21, creatinine 0.85. Chest x-ray shows changes of COPD, with mild interstitial pulmonary edema. Progress note dated 07/27/2023. The patient was seen this morning in room 356. The patient is scheduled to have open-heart surgery today, 07/27/2023. He is currently on 2 L of oxygen. Lab data today includes a glucose of 121. Lab data from July 26 have been re viewed. X-rays, medications, and other information has also been reviewed. Previous chest x-ray shows changes of COPD, with mild interstitial pulmonary edema. Progress note dated 07/28/2023. The patient is postop day #1, status post three-vessel bypass grafting, mitral valve repair, tricuspid valve repair, and exclusion of the left atrial appendage. The patient's currently been extubated to 4 L of oxygen. He was extubated on July 27, at nighttime. He is getting saline at 50 mL an hour, and an insulin drip at 2.5 units an hour. The patient is very anxious and received some benzodiazepine. White count 6.9, hemoglobin 7.2, hematocrit 20.9, and a platelet count of 50,000. Sodium 135, potassium 4.6, chlorides 105, CO2 26, BUN 23, and creatinine 0.94. Chest x-ray shows some mild pulmonary vascular congestion, and some basilar atelectasis. The endotracheal tube has been removed. Objective - Vital Signs Vital signs: Vital Signs Temp 99.1 F 07/28/23 11:30 Pulse 79 07/28/23 12:00 Resp 14 07/28/23 12:00 BP 116/49 07/28/23 06:15 Pulse Ox 94 L 07/28/23 12:00 FiO2 50 07/27/23 22:02 Intake & Output 07/27/23 07/28/23 07/28/23 18:59 06:59 18:59 Intake Total 4511.580 6516.337 460.582 Output Total 3895 1595 315 Balance -2773.755 -3.663 145.582 Weight 74.5 kg Intake: IV 260 1378 402 0.9 150 600 Albumin Human 5% 250 ml 500 In Empty Bag 1 bag @ 250 mls/hr IVPB Q1HR PRN Rx#: [id number] CI/CO 30 170 20 Calcium Gluconate in NaCl 100 2 gm In Saline 1 100ml. bag @ 100 mls/hr IVPB ONCE ONE Rx#:[id number] Pressure bags (0.9 Sodium 27 108 42 Chloride) Sodium Chloride 0.9% 1, 190 000 ml @ 20 mls/hr IV . Q24H [facility] Rx#:[id number] ceFAZolin 2 gm In Sodium 50 Chloride 0.9% 50 ml @ 100 mls/hr IVPB Q8H [facility] Rx#: [id number] Intake, IV Titration 5.245 63.337 58.582 Amount Clevidipine Butyrate 25 1 mg In Empty Bag 1 bag @ 1 MG/HR 2 mls/hr IV .Q24H [facility] Rx#:[id number] Insulin Regular 100 unit 17.506 9.538 In Sodium Chloride 0.9% 100 ml @ Per Protocol IV .Q0M [facility] Rx#:[id number] Milrinone-D5w Pmx 20 mg 49.044 In Dextrose/Water 1 100ml .bag @ 0.25 MCG/KG/MIN 5. 443 mls/hr IV .[id number] [facility] Rx#:[id number] propofoL 1,000 mg In 4.245 45.831 Empty Bag 1 bag @ Titrate IV .Q0M [facility] Rx#: [id number] Oral 150 Blood Product 606 Rc As-1 Unit 310 [id number] Rc Pheresis 2 As3 Unit 296 [id number] Albumin 250 Albumin Human 5% 250 ml 250 In Empty Bag 1 bag @ 250 mls/hr IVPB Q1HR PRN Rx#: [id number] Output: Chest Tube Drainage 510 660 90 L. plurel 260 290 30 MS 250 370 60 Drainage 60 50 15 Left Calf 60 50 15 Urine 1125 885 210 Estimated Blood Loss 2200 Other: Voiding Method Indwelling Catheter Indwelling Catheter Indwelling Catheter ABP, PAP, CO, CI - Last Documented Arterial Blood Pressure 142/47 Pulmonary Artery Pressure 52/14 Cardiac Output 4 Cardiac Index 2.2 - Exam No acute distress, oriented 3. Currently on 4 L of oxygen. HEENT examination is grossly unremarkable. Mucous membranes are moist. No oral lesions. Neck supple. Full range of motion. No adenopathy thyromegaly or neck vein distention. Cardiovascular examination reveals regular rhythm rate. S1-S2 normal. No S3 or S4. No discernible murmur noted. Heart rate 79 bpm. Lungs reveal minimal bibasilar crackles. No wheezes or rhonchi. Breath sounds are equal bilaterally. 4 L saturation is 96%. Abdomen soft bowel sounds are heard. No masses or tenderness. Extremities are intact. No cyanosis clubbing or edema. Skin is without rash or lesion. Neurologic examination is brief but nonfocal. - Labs CBC & Chem 7: 07/28/23 03:00 07/28/23 03:00 Labs: Abnormal Lab Results - Last 24 Hours (Table) 07/26/23 07/27/23 07/27/23 Range/Units 07:32 09:00 09:00 RBC (4.30-5.90) m/uL Hgb (13.0-17.5) gm/dL Hct (39.0-53.0) % RDW (11.5-15.5) % Plt Count (150-450) k/uL Neutrophils # (1.3-7.7) k/uL Lymphocytes # (1.0-4.8) k/uL PT (9.0-12.0) sec INR (<1.2) APTT (22.0-30.0) sec Fibrinogen (200-500) mg/dL ABG pH 7.53 H 7.52 H (7.35-7.45) ABG pCO2 33 L 34 L (35-45) mmHg ABG pO2 396 H >420 H (83-108) mmHg ABG HCO3 27 H 28 H (21-25) mmol/L ABG Total CO2 28 H 29 H (19-24) mmol/L ABG O2 Saturation 99.7 H 99.8 H (94-97) % ABG Hematocrit 18 L* 17 L* (34.0-46.0) % ABG Sodium 133 L 133 L (135-146) mmol/L ABG Potassium 5.4 H (3.4-4.5) mmol/L ABG Ionized Calcium 3.6 L 3.6 L (4.5-5.3) mg/dL ABG Glucose 108 H 113 H (75-99) mg/dL ABG Lactic Acid (0.5-1.6) mmol/L Hemoglobin 5.9 L* 5.6 L* (13.0-17.5) gm/dL Sodium (137-145) mmol/L BUN (9-20) mg/dL Glucose (74-99) mg/dL POC Glucose (mg/dL) (70-110) mg/dL Calcium (8.4-10.2) mg/dL Ionized Calcium Jessie (4.5-5.3) mg/dL Magnesium (1.6-2.3) mg/dL AST (17-59) U/L Alkaline Phosphatase (38-126) U/L Total Protein (6.3-8.2) g/dL Albumin (3.5-5.0) g/dL Arterial Blood Potassium 5.4 H (3.4-4.5) mmol/L Arterial Blood Glucose 108 H 113 H (75-99) mg/dL Crossmatch See Detail 07/27/23 07/27/23 07/27/23 Range/Units 09:00 16:17 16:18 RBC 2.92 L (4.30-5.90) m/uL Hgb 9.1 L (13.0-17.5) gm/dL Hct 27.6 L (39.0-53.0) % RDW (11.5-15.5) % Plt Count 57 L D (150-450) k/uL Neutrophils # (1.3-7.7) k/uL Lymphocytes # 0.5 L (1.0-4.8) k/uL PT (9.0-12.0) sec INR (<1.2) APTT (22.0-30.0) sec Fibrinogen (200-500) mg/dL ABG pH (7.35-7.45) ABG pCO2 47 H (35-45) mmHg ABG pO2 >420 H (83-108) mmHg ABG HCO3 26 H (21-25) mmol/L ABG Total CO2 27 H (19-24) mmol/L ABG O2 Saturation 99.5 H (94-97) % ABG Hematocrit 16 L* (34.0-46.0) % ABG Sodium 133 L (135-146) mmol/L ABG Potassium 6.2 H* (3.4-4.5) mmol/L ABG Ionized Calcium 3.6 L (4.5-5.3) mg/dL ABG Glucose 161 H (75-99) mg/dL ABG Lactic Acid 2.7 H* (0.5-1.6) mmol/L Hemoglobin 5.3 L* (13.0-17.5) gm/dL Sodium (137-145) mmol/L BUN (9-20) mg/dL Glucose (74-99) mg/dL POC Glucose (mg/dL) 123 H (70-110) mg/dL Calcium (8.4-10.2) mg/dL Ionized Calcium Jessie (4.5-5.3) mg/dL Magnesium (1.6-2.3) mg/dL AST (17-59) U/L Alkaline Phosphatase (38-126) U/L Total Protein (6.3-8.2) g/dL Albumin (3.5-5.0) g/dL Arterial Blood Potassium 6.2 H* (3.4-4.5) mmol/L Arterial Blood Glucose 161 H (75-99) mg/dL Crossmatch 07/27/23 07/27/23 07/27/23 Range/Units 16:18 16:18 16:21 RBC (4.30-5.90) m/uL Hgb (13.0-17.5) gm/dL Hct (39.0-53.0) % RDW (11.5-15.5) % Plt Count (150-450) k/uL Neutrophils # (1.3-7.7) k/uL Lymphocytes # (1.0-4.8) k/uL PT 15.6 H (9.0-12.0) sec INR 1.6 H (<1.2) APTT 64.2 H (22.0-30.0) sec Fibrinogen 156 L (200-500) mg/dL ABG pH 7.20 L (7.35-7.45) ABG pCO2 68 H (35-45) mmHg ABG pO2 59 L* (83-108) mmHg ABG HCO3 27 H (21-25) mmol/L ABG Total CO2 29 H (19-24) mmol/L ABG O2 Saturation 86.0 L (94-97) % ABG Hematocrit (34.0-46.0) % ABG Sodium (135-146) mmol/L ABG Potassium (3.4-4.5) mmol/L ABG Ionized Calcium (4.5-5.3) mg/dL ABG Glucose (75-99) mg/dL ABG Lactic Acid (0.5-1.6) mmol/L Hemoglobin (13.0-17.5) gm/dL Sodium 136 L (137-145) mmol/L BUN 22 H (9-20) mg/dL Glucose 103 H (74-99) mg/dL POC Glucose (mg/dL) (70-110) mg/dL Calcium 5.9 L* (8.4-10.2) mg/dL Ionized Calcium Jessie 3.7 L (4.5-5.3) mg/dL Magnesium 3.0 H (1.6-2.3) mg/dL AST 76 H (17-59) U/L Alkaline Phosphatase 26 L (38-126) U/L Total Protein 3.7 L (6.3-8.2) g/dL Albumin 2.0 L (3.5-5.0) g/dL Arterial Blood Potassium (3.4-4.5) mmol/L Arterial Blood Glucose (75-99) mg/dL Crossmatch 07/27/23 07/27/23 07/27/23 Range/Units 17:27 18:05 18:38 RBC (4.30-5.90) m/uL Hgb (13.0-17.5) gm/dL Hct (39.0-53.0) % RDW (11.5-15.5) % Plt Count (150-450) k/uL Neutrophils # (1.3-7.7) k/uL Lymphocytes # (1.0-4.8) k/uL PT (9.0-12.0) sec INR (<1.2) APTT (22.0-30.0) sec Fibrinogen (200-500) mg/dL ABG pH 7.29 L (7.35-7.45) ABG pCO2 55 H (35-45) mmHg ABG pO2 119 H (83-108) mmHg ABG HCO3 26 H (21-25) mmol/L ABG Total CO2 28 H (19-24) mmol/L ABG O2 Saturation 98.0 H (94-97) % ABG Hematocrit (34.0-46.0) % ABG Sodium (135-146) mmol/L ABG Potassium (3.4-4.5) mmol/L ABG Ionized Calcium (4.5-5.3) mg/dL ABG Glucose (75-99) mg/dL ABG Lactic Acid (0.5-1.6) mmol/L Hemoglobin (13.0-17.5) gm/dL Sodium (137-145) mmol/L BUN (9-20) mg/dL Glucose (74-99) mg/dL POC Glucose (mg/dL) 132 H 134 H (70-110) mg/dL Calcium (8.4-10.2) mg/dL Ionized Calcium Jessie (4.5-5.3) mg/dL Magnesium (1.6-2.3) mg/dL AST (17-59) U/L Alkaline Phosphatase (38-126) U/L Total Protein (6.3-8.2) g/dL Albumin (3.5-5.0) g/dL Arterial Blood Potassium (3.4-4.5) mmol/L Arterial Blood Glucose (75-99) mg/dL Crossmatch 07/27/23 07/27/23 07/27/23 Range/Units 19:30 19:49 19:52 RBC 2.71 L (4.30-5.90) m/uL Hgb 8.8 L (13.0-17.5) gm/dL Hct 25.1 L (39.0-53.0) % RDW 15.6 H (11.5-15.5) % Plt Count 53 L (150-450) k/uL Neutrophils # 9.2 H (1.3-7.7) k/uL Lymphocytes # 0.3 L (1.0-4.8) k/uL PT (9.0-12.0) sec INR (<1.2) APTT (22.0-30.0) sec Fibrinogen (200-500) mg/dL ABG pH (7.35-7.45) ABG pCO2 47 H (35-45) mmHg ABG pO2 127 H (83-108) mmHg ABG HCO3 26 H (21-25) mmol/L ABG Total CO2 27 H (19-24) mmol/L ABG O2 Saturation 99.0 H (94-97) % ABG Hematocrit (34.0-46.0) % ABG Sodium (135-146) mmol/L ABG Potassium (3.4-4.5) mmol/L ABG Ionized Calcium (4.5-5.3) mg/dL ABG Glucose (75-99) mg/dL ABG Lactic Acid (0.5-1.6) mmol/L Hemoglobin (13.0-17.5) gm/dL Sodium (137-145) mmol/L BUN (9-20) mg/dL Glucose (74-99) mg/dL POC Glucose (mg/dL) 127 H (70-110) mg/dL Calcium (8.4-10.2) mg/dL Ionized Calcium Jessie (4.5-5.3) mg/dL Magnesium (1.6-2.3) mg/dL AST (17-59) U/L Alkaline Phosphatase (38-126) U/L Total Protein (6.3-8.2) g/dL Albumin (3.5-5.0) g/dL Arterial Blood Potassium (3.4-4.5) mmol/L Arterial Blood Glucose (75-99) mg/dL Crossmatch 07/27/23 07/27/23 07/27/23 Range/Units 20:58 21:49 21:50 RBC 2.29 L (4.30-5.90) m/uL Hgb 7.3 L D (13.0-17.5) gm/dL Hct 21.1 L (39.0-53.0) % RDW 15.8 H (11.5-15.5) % Plt Count 50 L (150-450) k/uL Neutrophils # (1.3-7.7) k/uL Lymphocytes # 0.3 L (1.0-4.8) k/uL PT (9.0-12.0) sec INR (<1.2) APTT (22.0-30.0) sec Fibrinogen (200-500) mg/dL ABG pH (7.35-7.45) ABG pCO2 (35-45) mmHg ABG pO2 (83-108) mmHg ABG HCO3 (21-25) mmol/L ABG Total CO2 (19-24) mmol/L ABG O2 Saturation (94-97) % ABG Hematocrit (34.0-46.0) % ABG Sodium (135-146) mmol/L ABG Potassium (3.4-4.5) mmol/L ABG Ionized Calcium (4.5-5.3) mg/dL ABG Glucose (75-99) mg/dL ABG Lactic Acid (0.5-1.6) mmol/L Hemoglobin (13.0-17.5) gm/dL Sodium (137-145) mmol/L BUN (9-20) mg/dL Glucose (74-99) mg/dL POC Glucose (mg/dL) 129 H 136 H (70-110) mg/dL Calcium (8.4-10.2) mg/dL Ionized Calcium Jessie (4.5-5.3) mg/dL Magnesium (1.6-2.3) mg/dL AST (17-59) U/L Alkaline Phosphatase (38-126) U/L Total Protein (6.3-8.2) g/dL Albumin (3.5-5.0) g/dL Arterial Blood Potassium (3.4-4.5) mmol/L Arterial Blood Glucose (75-99) mg/dL Crossmatch 07/27/23 07/27/23 07/27/23 Range/Units 22:18 22:51 23:54 RBC (4.30-5.90) m/uL Hgb (13.0-17.5) gm/dL Hct (39.0-53.0) % RDW (11.5-15.5) % Plt Count (150-450) k/uL Neutrophils # (1.3-7.7) k/uL Lymphocytes # (1.0-4.8) k/uL PT (9.0-12.0) sec INR (<1.2) APTT (22.0-30.0) sec Fibrinogen (200-500) mg/dL ABG pH 7.33 L (7.35-7.45) ABG pCO2 48 H (35-45) mmHg ABG pO2 80 L (83-108) mmHg ABG HCO3 (21-25) mmol/L ABG Total CO2 27 H (19-24) mmol/L ABG O2 Saturation (94-97) % ABG Hematocrit (34.0-46.0) % ABG Sodium (135-146) mmol/L ABG Potassium (3.4-4.5) mmol/L ABG Ionized Calcium (4.5-5.3) mg/dL ABG Glucose (75-99) mg/dL ABG Lactic Acid (0.5-1.6) mmol/L Hemoglobin (13.0-17.5) gm/dL Sodium (137-145) mmol/L BUN (9-20) mg/dL Glucose (74-99) mg/dL POC Glucose (mg/dL) 143 H 145 H (70-110) mg/dL Calcium (8.4-10.2) mg/dL Ionized Calcium Jessie (4.5-5.3) mg/dL Magnesium (1.6-2.3) mg/dL AST (17-59) U/L Alkaline Phosphatase (38-126) U/L Total Protein (6.3-8.2) g/dL Albumin (3.5-5.0) g/dL Arterial Blood Potassium (3.4-4.5) mmol/L Arterial Blood Glucose (75-99) mg/dL Crossmatch 07/28/23 07/28/23 07/28/23 Range/Units 00:59 01:53 02:52 RBC (4.30-5.90) m/uL Hgb (13.0-17.5) gm/dL Hct (39.0-53.0) % RDW (11.5-15.5) % Plt Count (150-450) k/uL Neutrophils # (1.3-7.7) k/uL Lymphocytes # (1.0-4.8) k/uL PT (9.0-12.0) sec INR (<1.2) APTT (22.0-30.0) sec Fibrinogen (200-500) mg/dL ABG pH (7.35-7.45) ABG pCO2 (35-45) mmHg ABG pO2 (83-108) mmHg ABG HCO3 (21-25) mmol/L ABG Total CO2 (19-24) mmol/L ABG O2 Saturation (94-97) % ABG Hematocrit (34.0-46.0) % ABG Sodium (135-146) mmol/L ABG Potassium (3.4-4.5) mmol/L ABG Ionized Calcium (4.5-5.3) mg/dL ABG Glucose (75-99) mg/dL ABG Lactic Acid (0.5-1.6) mmol/L Hemoglobin (13.0-17.5) gm/dL Sodium (137-145) mmol/L BUN (9-20) mg/dL Glucose (74-99) mg/dL POC Glucose (mg/dL) 151 H 141 H 132 H (70-110) mg/dL Calcium (8.4-10.2) mg/dL Ionized Calcium Jessie (4.5-5.3) mg/dL Magnesium (1.6-2.3) mg/dL AST (17-59) U/L Alkaline Phosphatase (38-126) U/L Total Protein (6.3-8.2) g/dL Albumin (3.5-5.0) g/dL Arterial Blood Potassium (3.4-4.5) mmol/L Arterial Blood Glucose (75-99) mg/dL Crossmatch 07/28/23 07/28/23 07/28/23 Range/Units 03:00 03:00 04:59 RBC 2.28 L (4.30-5.90) m/uL Hgb 7.2 L (13.0-17.5) gm/dL Hct 20.9 L (39.0-53.0) % RDW 15.8 H (11.5-15.5) % Plt Count 50 L (150-450) k/uL Neutrophils # (1.3-7.7) k/uL Lymphocytes # 0.4 L (1.0-4.8) k/uL PT (9.0-12.0) sec INR (<1.2) APTT (22.0-30.0) sec Fibrinogen (200-500) mg/dL ABG pH (7.35-7.45) ABG pCO2 (35-45) mmHg ABG pO2 (83-108) mmHg ABG HCO3 (21-25) mmol/L ABG Total CO2 (19-24) mmol/L ABG O2 Saturation (94-97) % ABG Hematocrit (34.0-46.0) % ABG Sodium (135-146) mmol/L ABG Potassium (3.4-4.5) mmol/L ABG Ionized Calcium (4.5-5.3) mg/dL ABG Glucose (75-99) mg/dL ABG Lactic Acid (0.5-1.6) mmol/L Hemoglobin (13.0-17.5) gm/dL Sodium 135 L (137-145) mmol/L BUN 23 H (9-20) mg/dL Glucose 108 H (74-99) mg/dL POC Glucose (mg/dL) 157 H (70-110) mg/dL Calcium 7.0 L (8.4-10.2) mg/dL Ionized Calcium Jessie 4.2 L (4.5-5.3) mg/dL Magnesium 2.5 H (1.6-2.3) mg/dL AST 142 H (17-59) U/L Alkaline Phosphatase 34 L (38-126) U/L Total Protein 4.3 L (6.3-8.2) g/dL Albumin 2.6 L (3.5-5.0) g/dL Arterial Blood Potassium (3.4-4.5) mmol/L Arterial Blood Glucose (75-99) mg/dL Crossmatch 07/28/23 07/28/23 07/28/23 Range/Units 06:06 06:49 09:08 RBC (4.30-5.90) m/uL Hgb (13.0-17.5) gm/dL Hct (39.0-53.0) % RDW (11.5-15.5) % Plt Count (150-450) k/uL Neutrophils # (1.3-7.7) k/uL Lymphocytes # (1.0-4.8) k/uL PT (9.0-12.0) sec INR (<1.2) APTT (22.0-30.0) sec Fibrinogen (200-500) mg/dL ABG pH (7.35-7.45) ABG pCO2 (35-45) mmHg ABG pO2 (83-108) mmHg ABG HCO3 (21-25) mmol/L ABG Total CO2 (19-24) mmol/L ABG O2 Saturation (94-97) % ABG Hematocrit (34.0-46.0) % ABG Sodium (135-146) mmol/L ABG Potassium (3.4-4.5) mmol/L ABG Ionized Calcium (4.5-5.3) mg/dL ABG Glucose (75-99) mg/dL ABG Lactic Acid (0.5-1.6) mmol/L Hemoglobin (13.0-17.5) gm/dL Sodium (137-145) mmol/L BUN (9-20) mg/dL Glucose (74-99) mg/dL POC Glucose (mg/dL) 148 H 154 H 147 H (70-110) mg/dL Calcium (8.4-10.2) mg/dL Ionized Calcium Jessie (4.5-5.3) mg/dL Magnesium (1.6-2.3) mg/dL AST (17-59) U/L Alkaline Phosphatase (38-126) U/L Total Protein (6.3-8.2) g/dL Albumin (3.5-5.0) g/dL Arterial Blood Potassium (3.4-4.5) mmol/L Arterial Blood Glucose (75-99) mg/dL Crossmatch 07/28/23 07/28/23 Range/Units 10:11 12:04 RBC (4.30-5.90) m/uL Hgb (13.0-17.5) gm/dL Hct (39.0-53.0) % RDW (11.5-15.5) % Plt Count (150-450) k/uL Neutrophils # (1.3-7.7) k/uL Lymphocytes # (1.0-4.8) k/uL PT (9.0-12.0) sec INR (<1.2) APTT (22.0-30.0) sec Fibrinogen (200-500) mg/dL ABG pH (7.35-7.45) ABG pCO2 (35-45) mmHg ABG pO2 (83-108) mmHg ABG HCO3 (21-25) mmol/L ABG Total CO2 (19-24) mmol/L ABG O2 Saturation (94-97) % ABG Hematocrit (34.0-46.0) % ABG Sodium (135-146) mmol/L ABG Potassium (3.4-4.5) mmol/L ABG Ionized Calcium (4.5-5.3) mg/dL ABG Glucose (75-99) mg/dL ABG Lactic Acid (0.5-1.6) mmol/L Hemoglobin (13.0-17.5) gm/dL Sodium (137-145) mmol/L BUN (9-20) mg/dL Glucose (74-99) mg/dL POC Glucose (mg/dL) 111 H 151 H (70-110) mg/dL Calcium (8.4-10.2) mg/dL Ionized Calcium Jessie (4.5-5.3) mg/dL Magnesium (1.6-2.3) mg/dL AST (17-59) U/L Alkaline Phosphatase (38-126) U/L Total Protein (6.3-8.2) g/dL Albumin (3.5-5.0) g/dL Arterial Blood Potassium (3.4-4.5) mmol/L Arterial Blood Glucose (75-99) mg/dL Crossmatch Assessment and Plan Assessment: Postop day #1, status post three-vessel bypass grafting, mitral valve repair, tricuspid valve repair, and exclusion of the left atrial appendage. Routine postoperative ventilator management, with extubation, on July 27. Multi-vessel coronary artery disease and severe mitral regurgitation, being considered for open heart surgery with surgical revascularization and mitral valve replacement, however, the patient does want to proceed with this option. Surgery is planned for 07/27/2023. Exertional dyspnea, likely secondary to above. CTA of the chest was completed for PE protocol which demonstrated no diagnostic evidence of pulmonary embolism, COPD like changes, pulmonary fibrosis, trace bilateral pleural effusions, groundglass changes, posssibly mild venous congestion correlate for mild CHF exacerbation. Benign essential hypertension. Hyperlipidemia. Abdominal aortic aneurysm, measuring 3.3 cm incidentally found on chest CTA. GERD. Chronic and ongoing nicotine dependence. Plan: Plan dated 07/26/2023. The patient is advised, about the importance of using the incentive spirometer. We also but the patient know what our role in this, as pulmonary/critical care physician, after open heart surgery. We explained to him, that our first goal is to get him extricated or liberated from mechanical ventilation. Secondly, we work with the patient throughout his hospitalization, to assure that he does not develop pneumonia, pleural effusion, atelectasis, or lobar collapse. We will continue to follow the patient, and make recommendations along the way. Plan dated 07/27/2023. The patient is scheduled to have open-heart surgery today. He was currently on 2 L prior to surgery. Obviously, he will be coming back to the intensive care unit, on the mechanical ventilator. Yesterday, we explained to the patient, that are goal is to get the patient extricated or liberated from mechanical ventilation as soon as possible, and secondly, evaluate the patient's lungs on a daily patient, to prevent, collapse, atelectasis, pleural effusion, or pneumoni a. Additional recommendations and suggestions are forthcoming. Plan dated 07/28/2023. The patient is seen in room 266, in the intensive care unit. He sitting in the chair, next to his bed. He is currently on 4 L of oxygen by nasal cannula. He is getting saline at 50 mL an hour, and an insulin drip at 2.5 units an hour. The patient is postop day #1, status post three-vessel bypass grafting, mitral valve repair, tricuspid valve repair, and exclusion of left atrial appendage. Labs, x-rays, and medications are reviewed. We will continue to follow, and make recommendations along the way. Chest x-ray shows primarily postoperative changes. Prognosis is guarded. Time with Patient: Greater than 30
[2023-07-28] MEDS: FERROUS SULFATE 325 MG TAB PO SCH (13:01)
[2023-07-28] MEDS: ASCORBIC ACID 500 MG TAB PO SCH (13:01)
[2023-07-28 13:59] LABS: Glucose,Whole Blood 141 mg/dL (70-110)
--- NOTE | 2023-07-28 14:39 | P.PN ---
Subjective Progress Note Date: 07/28/23 This is a 73-year-old male who presented to the emergency department with feeling of chest pain or shortness of breath. Patient reported some pressure and squeezing sensation along with a minimal cough and bloating. Patient reports he follows with Dr. Holloway in the outpatient setting with a past medical history of GERD, hyperlipidemia, hypertension, continues to smoke about 1 pack per day, has an occasional drink although not very often and denies any other illicit drug use. Chest x-ray in the ER shows interstitial infiltrates noted with mid and lower lung zones bilaterally that could reflect edema versus interstitial pneumonia. Patient underwent CTA of the chest showing no diagnostic evidence of PE, COPD with pulmonary fibrosis correlate for mild CHF with a dense coronary artery atherosclerosis noted along with incidental note of abdominal aortic aneurysm partially included measuring approximately 3.3 cm with nonspecific mediastinal and hilar lymphadenopathy. There is a prominent pulm onary artery that can be associated with pulmonary artery hypertension. 2-D echo was ordered and pending and was patient was admitted for chest pain for cardiology evaluation. Patient started on heparin as troponins was 0.031 and trending up at 0.043. Virology testing including influenza, RSV, and CoVid were all negative. WBC revealed a 10.8, hemoglobin 15.8, platelets 298, INR 1.0, sodium was 139 with a potassium of 3.9, BUN was 14 with creatinine of 0.86, total bili is 0.6, LFTs within normal limits, BNP was 546. Patient is currently maintained on 2 L of oxygen via nasal cannula for shortness of breath and oxygen saturations are 95-98% and patient reports he does not wear oxygen outpatient. Patient has been counseled extensively on complete tobacco cessation. 07/21/2023 Patient is seen and evaluated in follow-up with cardiology following along with CT surgery which has been consulted. Patient underwent cardiac catheterization showing triple-vessel heart disease and cardiothoracic has been consulted to discuss possible surgical intervention. Initiation of preoperative clearance has been ongoing and patient was scheduled to undergo NICOLAS today. Patient continues on 2 L via nasal cannula and reports his shortness of breath is improved and keeps asking if he could go home. Awaiting further evaluation from CT surgery and will discuss further with them about this. Family at the bedside with multiple questions and concerns were answered to the best of our ability. Patient's at bedside reports he smokes at least 2 packs a day of cigarettes and he mentioned only 1 pack per day and also drinks coffee from the time he wakes up until the time he goes to bed all day. Patient is afebrile denies chest pain or palpitations. No worsening shortness of breath noted. Patient was nothing by mouth for NICOLAS and diet resumed after procedure and tolerating with no reports of nausea or vomiting. Pro-calcitonin was normal and will discontinue empiric antibiotics. 07/22/2023 Patient is seen in follow-up today undergoing continued surgical work up for severe triple vessel disease. Patient continues to report he feels well and would like to go home prior to surgery. Patient is still requiring 2 liters via NC of . Multiple medical consultations following. Tentative surgery on Tuesday. Per cardiology, no plans for discharge prior to surgery at this time. Smoking cessation reinforced and patient remains on nicotine patch. Patient is afebrile and denies any chest pain or shortness of breath. Tolerating diet with no reported nausea or vomiting. 07/23/2023 Patient is currently lying in bed. Awake alert and oriented x3. Able to ambulate in the room. No complaints of chest pain or shortness of breath. No nausea vomiting abdominal pain or diarrhea. Saturating at 97% on room air. Patient has been afebrile. No cough or sputum production. Laboratory data showed sodium 135 potassium 3.7 chloride 100 bicarb is 27 BUN 2020 creatinine 0.9 and blood sugars 150. Patient is being continued on aspirin and statin, metoprolol and Aldactone. Cardiology and CT surgery is on board. Patient is scheduled for coronary artery bypass graft on 07/27/2023. 07/24/2023 Patient is currently in the telemetry unit. No complaints of chest pain or shortness of breath. No nausea vomiting abdominal pain or diarrhea. Able to ambulate in the room. Currently on oxygen at 2 L via nasal cannula and saturating at 100%. Patient has been afebrile. No acute overnight issues. P atient is using incentive spirometry. Scheduled for coronary revascularization surgery on 07/27/2023. Cardiology, pulmonary and CT surgery is on board. 07/25/2023 Patient is seen in follow-up this morning continued on 2 L via nasal cannula with good oxygen saturations and takes off frequently. Patient has been up walking around and labs within normal limits. Patient is using incentive spirometer as instructed and following heart healthy diet. Planning on CABG with valve repair or replacement on Tuesday with cardiothoracic surgery. Patient is currently afebrile with no reports of chest pain or worsening shortness of breath. Patient is tolerating diet and denies nausea or vomiting. 07/26/2023 Patient seen and evaluated in follow-up today and was told by retail shift manager that patient was sleeping sitting at the side of the bed and fell forward striking his nasal bone and head on the table. Maxillofacial CT was done showing concern for minimal nasal bone fracture. CT brain ordered without contrast as patient will be undergoing extensive CABG surgery in the a.m. and maintained on high intensity heparin throughout. This was discussed and relayed to cardiothoracic surgery and following protocol. Patient continues to require 2-3 L via nasal cannula otherwise denies worsening shortness of breath or chest pain. Patient denies having dizziness or lightheadedness or passing out at the time of this fall. No reports of nausea or vomiting noted and patient will be nothing by mouth at midnight. 07/28/2023 Patient is seen and evaluated in follow-up today currently in the ICU with multiple medical consultations following. Patient is status post triple-vessel coronary artery bypass grafting with complex mitral valve repair. Patient continues with multiple chest tubes and Elmo catheter indwelling Napoles catheter. Patient not requiring pressor support at this time is currently sitting up in the chair. Patient does have heart hugger noted. Patient also continues with insulin drip with blood sugars well controlled and we'll transition to sliding scale and long-acting as needed possibly in 24 hours. Patient is afebrile reports some chest wall discomfort although reports to feeling well. Chest x- ray today shows residual mild pulmonary vascular congestion with some i mprovement on the right. Hemoglobin 7.2 and has received 2 units of PRBCs yesterday. Will follow-up with repeat chest x-ray and labs in the a.m. Review of systems: Constitutional: No reports of fatigue, fever, or chills Cardiovascular: No reports of chest pain or palpitations Respiratory: No reports of worsening shortness of breath or cough GI: No reports of nausea, vomiting, or diarrhea : No reports of dysuria or retention Neurovascular: No reports of weakness or numbness All medications have been reviewed PHYSICAL EXAMINATION: GENERAL: The patient is alert and oriented x4, Well developed, well nourished. HEENT: Pupils are round and equally reacting to light. EOMI. no scleral icterus. No conjunctival pallor. Normocephalic, atraumatic. No pharyngeal erythema. No thyromegaly. No facial deformity noted on exam CARDIOVASCULAR: S1 and S2 muffled PULMONARY: diminished breath sounds bilaterally with no wheezing or rhonchi noted. ABDOMEN: soft. Nontender on exam. obese. non-distended, normoactive bowel sounds. No palpable organomegaly. MUSCULOSKELETAL: No joint swelling or deformity. EXTREMITIES: No cyanosis, clubbing, or pedal edema. NEUROLOGICAL: Gross neurological examination did not reveal any focal deficits. SKIN: No rashes. Assessment: Chest pain status post cardiac catheterization found to have severe triple- vessel disease status post three-vessel CABG with complex mitral valve repair Acute hypoxic respiratory failure, secondary to severe triple vessel disease Fall with a subtle deformity to the nasal bone for possible point tenderness fracture, no loss of consciousness, no acute intracranial process noted on CT of the brain Mild troponin elevation, most likely NSTEMI Mild leukocytosis, possibly reactive COPD, not in exacerbation Coronary artery atherosclerosis noted on CTA 3.3 cm abdominal aortic aneurysm noted on CTA Aortic valve murmur consistent with aortic stenosis, moderate History of GERD Hyperlipidemia history Hypertension history Continued ongoing nicotine dependence, smokes about 2 packs per day Excessive caffeine intake daily GI prophylaxis DVT prophylaxis Full code Plan: Patient is continued in the ICU with multiple medical consultations following as patient was found to have severe triple-vessel disease and is status post three-vessel CABG with complex mitral valve repair Continue on supplemental oxygen and wean as tolerated. Encourage incentive spirometer use at least 10 times every hour while awake Continue GI and DVT prophylaxis . Patient continue on insulin drip per protocol and we'll transition to sliding scale and long-acting for tight glycemic control in the next 24 hours Encouraged increased activity as tolerated with cardiac rehab following Continue telemetry monitoring Complete tobacco cessation and excessive caffeine use has been discussed extensively Overall prognosis is guarded at this time. We will continue to follow during hospitalization. The impression and plan of care has been dictated by Delia Oakes, nurse practitioner as directed. Dr. Matthew MD I have performed a history and examination and MDM of this patient, discussed the same with the dictator, and agree with the dictator's assessment and plan as written ,documented as a scribe. Based on total visit time, I have performed more than 50% of the visit. Any additional findings or plans will be noted. Objective - Vital Signs Vital signs: Vital Signs Temp 99.1 F 07/28/23 11:30 Pulse 76 07/28/23 14:00 Resp 21 07/28/23 14:00 BP 101/51 07/28/23 14:00 Pulse Ox 93 L 07/28/23 14:00 FiO2 50 07/27/23 22:02 Intake & Output 07/27/23 07/28/23 07/28/23 18:59 06:59 18:59 Intake Total 8541.415 1735.337 785.582 Output Total 3895 1595 455 Balance -2773.755 -3.663 330.582 Weight 74.5 kg Intake: IV 260 1378 477 0.9 150 600 Albumin Human 5% 250 ml 500 In Empty Bag 1 bag @ 250 mls/hr IVPB Q1HR PRN Rx#: [id number] CI/CO 30 170 20 Calcium Gluconate in NaCl 100 2 gm In Saline 1 100ml. bag @ 100 mls/hr IVPB ONCE ONE Rx#:[id number] Pressure bags (0.9 Sodium 27 108 57 Chloride) Sodium Chloride 0.9% 1, 250 000 ml @ 20 mls/hr IV . Q24H ANCA Rx#:[id number] ceFAZolin 2 gm In Sodium 50 Chloride 0.9% 50 ml @ 100 mls/hr IVPB Q8H ANCA Rx#: [id number] Intake, IV Titration 5.245 63.337 58.582 Amount Clevidipine Butyrate 25 1 mg In Empty Bag 1 bag @ 1 MG/HR 2 mls/hr IV .Q24H ANCA Rx#:[id number] Insulin Regular 100 unit 17.506 9.538 In Sodium Chloride 0.9% 100 ml @ Per Protocol IV .Q0M ANCA Rx#:[id number] Milrinone-D5w Pmx 20 mg 49.044 In Dextrose/Water 1 100ml .bag @ 0.25 MCG/KG/MIN 5. 443 mls/hr IV .[id number] ANCA Rx#:[id number] propofoL 1,000 mg In 4.245 45.831 Empty Bag 1 bag @ Titrate IV .Q0M ANCA Rx#: [id number] Oral 150 250 Blood Product 606 Rc As-1 Unit 310 [id number] Rc Pheresis 2 As3 Unit 296 [id number] Albumin 250 Albumin Human 5% 250 ml 250 In Empty Bag 1 bag @ 250 mls/hr IVPB Q1HR PRN Rx#: [id number] Output: Chest Tube Drainage 510 660 150 L. plurel 260 290 50 MS 250 370 100 Drainage 60 50 15 Left Calf 60 50 15 Urine 1125 885 290 Estimated Blood Loss 2200 Other: Voiding Method Indwelling Catheter Indwelling Catheter Indwelling Catheter ABP, PAP, CO, CI - Last Documented Arterial Blood Pressure 112/41 Pulmonary Artery Pressure 52/14 Cardiac Output 4 Cardiac Index 2.2 - Labs CBC & Chem 7: 07/28/23 03:00 07/28/23 03:00 Labs: Abnormal Lab Results - Last 24 Hours (Table) 07/26/23 07/27/23 07/27/23 Range/Units 07:32 09:00 09:00 RBC (4.30-5.90) m/uL Hgb (13.0-17.5) gm/dL Hct (39.0-53.0) % RDW (11.5-15.5) % Plt Count (150-450) k/uL Neutrophils # (1.3-7.7) k/uL Lymphocytes # (1.0-4.8) k/uL PT (9.0-12.0) sec INR (<1.2) APTT (22.0-30.0) sec Fibrinogen (200-500) mg/dL ABG pH 7.53 H 7.52 H (7.35-7.45) ABG pCO2 33 L 34 L (35-45) mmHg ABG pO2 396 H >420 H (83-108) mmHg ABG HCO3 27 H 28 H (21-25) mmol/L ABG Total CO2 28 H 29 H (19-24) mmol/L ABG O2 Saturation 99.7 H 99.8 H (94-97) % ABG Hematocrit 18 L* 17 L* (34.0-46.0) % ABG Sodium 133 L 133 L (135-146) mmol/L ABG Potassium 5.4 H (3.4-4.5) mmol/L ABG Ionized Calcium 3.6 L 3.6 L (4.5-5.3) mg/dL ABG Glucose 108 H 113 H (75-99) mg/dL ABG Lactic Acid (0.5-1.6) mmol/L Hemoglobin 5.9 L* 5.6 L* (13.0-17.5) gm/dL Sodium (137-145) mmol/L BUN (9-20) mg/dL Glucose (74-99) mg/dL POC Glucose (mg/dL) (70-110) mg/dL Calcium (8.4-10.2) mg/dL Ionized Calcium Jessie (4.5-5.3) mg/dL Magnesium (1.6-2.3) mg/dL AST (17-59) U/L Alkaline Phosphatase (38-126) U/L Total Protein (6.3-8.2) g/dL Albumin (3.5-5.0) g/dL Arterial Blood Potassium 5.4 H (3.4-4.5) mmol/L Arterial Blood Glucose 108 H 113 H (75-99) mg/dL Crossmatch See Detail 07/27/23 07/27/23 07/27/23 Range/Units 09:00 16:17 16:18 RBC 2.92 L (4.30-5.90) m/uL Hgb 9.1 L (13.0-17.5) gm/dL Hct 27.6 L (39.0-53.0) % RDW (11.5-15.5) % Plt Count 57 L D (150-450) k/uL Neutrophils # (1.3-7.7) k/uL Lymphocytes # 0.5 L (1.0-4.8) k/uL PT (9.0-12.0) sec INR (<1.2) APTT (22.0-30.0) sec Fibrinogen (200-500) mg/dL ABG pH (7.35-7.45) ABG pCO2 47 H (35-45) mmHg ABG pO2 >420 H (83-108) mmHg ABG HCO3 26 H (21-25) mmol/L ABG Total CO2 27 H (19-24) mmol/L ABG O2 Saturation 99.5 H (94-97) % ABG Hematocrit 16 L* (34.0-46.0) % ABG Sodium 133 L (135-146) mmol/L ABG Potassium 6.2 H* (3.4-4.5) mmol/L ABG Ionized Calcium 3.6 L (4.5-5.3) mg/dL ABG Glucose 161 H (75-99) mg/dL ABG Lactic Acid 2.7 H* (0.5-1.6) mmol/L Hemoglobin 5.3 L* (13.0-17.5) gm/dL Sodium (137-145) mmol/L BUN (9-20) mg/dL Glucose (74-99) mg/dL POC Glucose (mg/dL) 123 H (70-110) mg/dL Calcium (8.4-10.2) mg/dL Ionized Calcium Jessie (4.5-5.3) mg/dL Magnesium (1.6-2.3) mg/dL AST (17-59) U/L Alkaline Phosphatase (38-126) U/L Total Protein (6.3-8.2) g/dL Albumin (3.5-5.0) g/dL Arterial Blood Potassium 6.2 H* (3.4-4.5) mmol/L Arterial Blood Glucose 161 H (75-99) mg/dL Crossmatch 07/27/23 07/27/23 07/27/23 Range/Units 16:18 16:18 16:21 RBC (4.30-5.90) m/uL Hgb (13.0-17.5) gm/dL Hct (39.0-53.0) % RDW (11.5-15.5) % Plt Count (150-450) k/uL Neutrophils # (1.3-7.7) k/uL Lymphocytes # (1.0-4.8) k/uL PT 15.6 H (9.0-12.0) sec INR 1.6 H (<1.2) APTT 64.2 H (22.0-30.0) sec Fibrinogen 156 L (200-500) mg/dL ABG pH 7.20 L (7.35-7.45) ABG pCO2 68 H (35-45) mmHg ABG pO2 59 L* (83-108) mmHg ABG HCO3 27 H (21-25) mmol/L ABG Total CO2 29 H (19-24) mmol/L ABG O2 Saturation 86.0 L (94-97) % ABG Hematocrit (34.0-46.0) % ABG Sodium (135-146) mmol/L ABG Potassium (3.4-4.5) mmol/L ABG Ionized Calcium (4.5-5.3) mg/dL ABG Glucose (75-99) mg/dL ABG Lactic Acid (0.5-1.6) mmol/L Hemoglobin (13.0-17.5) gm/dL Sodium 136 L (137-145) mmol/L BUN 22 H (9-20) mg/dL Glucose 103 H (74-99) mg/dL POC Glucose (mg/dL) (70-110) mg/dL Calcium 5.9 L* (8.4-10.2) mg/dL Ionized Calcium Jessie 3.7 L (4.5-5.3) mg/dL Magnesium 3.0 H (1.6-2.3) mg/dL AST 76 H (17-59) U/L Alkaline Phosphatase 26 L (38-126) U/L Total Protein 3.7 L (6.3-8.2) g/dL Albumin 2.0 L (3.5-5.0) g/dL Arterial Blood Potassium (3.4-4.5) mmol/L Arterial Blood Glucose (75-99) mg/dL Crossmatch 07/27/23 07/27/23 07/27/23 Range/Units 17:27 18:05 18:38 RBC (4.30-5.90) m/uL Hgb (13.0-17.5) gm/dL Hct (39.0-53.0) % RDW (11.5-15.5) % Plt Count (150-450) k/uL Neutrophils # (1.3-7.7) k/uL Lymphocytes # (1.0-4.8) k/uL PT (9.0-12.0) sec INR (<1.2) APTT (22.0-30.0) sec Fibrinogen (200-500) mg/dL ABG pH 7.29 L (7.35-7.45) ABG pCO2 55 H (35-45) mmHg ABG pO2 119 H (83-108) mmHg ABG HCO3 26 H (21-25) mmol/L ABG Total CO2 28 H (19-24) mmol/L ABG O2 Saturation 98.0 H (94-97) % ABG Hematocrit (34.0-46.0) % ABG Sodium (135-146) mmol/L ABG Potassium (3.4-4.5) mmol/L ABG Ionized Calcium (4.5-5.3) mg/dL ABG Glucose (75-99) mg/dL ABG Lactic Acid (0.5-1.6) mmol/L Hemoglobin (13.0-17.5) gm/dL Sodium (137-145) mmol/L BUN (9-20) mg/dL Glucose (74-99) mg/dL POC Glucose (mg/dL) 132 H 134 H (70-110) mg/dL Calcium (8.4-10.2) mg/dL Ionized Calcium Jessie (4.5-5.3) mg/dL Magnesium (1.6-2.3) mg/dL AST (17-59) U/L Alkaline Phosphatase (38-126) U/L Total Protein (6.3-8.2) g/dL Albumin (3.5-5.0) g/dL Arterial Blood Potassium (3.4-4.5) mmol/L Arterial Blood Glucose (75-99) mg/dL Crossmatch 07/27/23 07/27/23 07/27/23 Range/Units 19:30 19:49 19:52 RBC 2.71 L (4.30-5.90) m/uL Hgb 8.8 L (13.0-17.5) gm/dL Hct 25.1 L (39.0-53.0) % RDW 15.6 H (11.5-15.5) % Plt Count 53 L (150-450) k/uL Neutrophils # 9.2 H (1.3-7.7) k/uL Lymphocytes # 0.3 L (1.0-4.8) k/uL PT (9.0-12.0) sec INR (<1.2) APTT (22.0-30.0) sec Fibrinogen (200-500) mg/dL ABG pH (7.35-7.45) ABG pCO2 47 H (35-45) mmHg ABG pO2 127 H (83-108) mmHg ABG HCO3 26 H (21-25) mmol/L ABG Total CO2 27 H (19-24) mmol/L ABG O2 Saturation 99.0 H (94-97) % ABG Hematocrit (34.0-46.0) % ABG Sodium (135-146) mmol/L ABG Potassium (3.4-4.5) mmol/L ABG Ionized Calcium (4.5-5.3) mg/dL ABG Glucose (75-99) mg/dL ABG Lactic Acid (0.5-1.6) mmol/L Hemoglobin (13.0-17.5) gm/dL Sodium (137-145) mmol/L BUN (9-20) mg/dL Glucose (74-99) mg/dL POC Glucose (mg/dL) 127 H (70-110) mg/dL Calcium (8.4-10.2) mg/dL Ionized Calcium Jessie (4.5-5.3) mg/dL Magnesium (1.6-2.3) mg/dL AST (17-59) U/L Alkaline Phosphatase (38-126) U/L Total Protein (6.3-8.2) g/dL Albumin (3.5-5.0) g/dL Arterial Blood Potassium (3.4-4.5) mmol/L Arterial Blood Glucose (75-99) mg/dL Crossmatch 07/27/23 07/27/23 07/27/23 Range/Units 20:58 21:49 21:50 RBC 2.29 L (4.30-5.90) m/uL Hgb 7.3 L D (13.0-17.5) gm/dL Hct 21.1 L (39.0-53.0) % RDW 15.8 H (11.5-15.5) % Plt Count 50 L (150-450) k/uL Neutrophils # (1.3-7.7) k/uL Lymphocytes # 0.3 L (1.0-4.8) k/uL PT (9.0-12.0) sec INR (<1.2) APTT (22.0-30.0) sec Fibrinogen (200-500) mg/dL ABG pH (7.35-7.45) ABG pCO2 (35-45) mmHg ABG pO2 (83-108) mmHg ABG HCO3 (21-25) mmol/L ABG Total CO2 (19-24) mmol/L ABG O2 Saturation (94-97) % ABG Hematocrit (34.0-46.0) % ABG Sodium (135-146) mmol/L ABG Potassium (3.4-4.5) mmol/L ABG Ionized Calcium (4.5-5.3) mg/dL ABG Glucose (75-99) mg/dL ABG Lactic Acid (0.5-1.6) mmol/L Hemoglobin (13.0-17.5) gm/dL Sodium (137-145) mmol/L BUN (9-20) mg/dL Glucose (74-99) mg/dL POC Glucose (mg/dL) 129 H 136 H (70-110) mg/dL Calcium (8.4-10.2) mg/dL Ionized Calcium Jessie (4.5-5.3) mg/dL Magnesium (1.6-2.3) mg/dL AST (17-59) U/L Alkaline Phosphatase (38-126) U/L Total Protein (6.3-8.2) g/dL Albumin (3.5-5.0) g/dL Arterial Blood Potassium (3.4-4.5) mmol/L Arterial Blood Glucose (75-99) mg/dL Crossmatch 07/27/23 07/27/23 07/27/23 Range/Units 22:18 22:51 23:54 RBC (4.30-5.90) m/uL Hgb (13.0-17.5) gm/dL Hct (39.0-53.0) % RDW (11.5-15.5) % Plt Count (150-450) k/uL Neutrophils # (1.3-7.7) k/uL Lymphocytes # (1.0-4.8) k/uL PT (9.0-12.0) sec INR (<1.2) APTT (22.0-30.0) sec Fibrinogen (200-500) mg/dL ABG pH 7.33 L (7.35-7.45) ABG pCO2 48 H (35-45) mmHg ABG pO2 80 L (83-108) mmHg ABG HCO3 (21-25) mmol/L ABG Total CO2 27 H (19-24) mmol/L ABG O2 Saturation (94-97) % ABG Hematocrit (34.0-46.0) % ABG Sodium (135-146) mmol/L ABG Potassium (3.4-4.5) mmol/L ABG Ionized Calcium (4.5-5.3) mg/dL ABG Glucose (75-99) mg/dL ABG Lactic Acid (0.5-1.6) mmol/L Hemoglobin (13.0-17.5) gm/dL Sodium (137-145) mmol/L BUN (9-20) mg/dL Glucose (74-99) mg/dL POC Glucose (mg/dL) 143 H 145 H (70-110) mg/dL Calcium (8.4-10.2) mg/dL Ionized Calcium Jessie (4.5-5.3) mg/dL Magnesium (1.6-2.3) mg/dL AST (17-59) U/L Alkaline Phosphatase (38-126) U/L Total Protein (6.3-8.2) g/dL Albumin (3.5-5.0) g/dL Arterial Blood Potassium (3.4-4.5) mmol/L Arterial Blood Glucose (75-99) mg/dL Crossmatch 07/28/23 07/28/23 07/28/23 Range/Units 00:59 01:53 02:52 RBC (4.30-5.90) m/uL Hgb (13.0-17.5) gm/dL Hct (39.0-53.0) % RDW (11.5-15.5) % Plt Count (150-450) k/uL Neutrophils # (1.3-7.7) k/uL Lymphocytes # (1.0-4.8) k/uL PT (9.0-12.0) sec INR (<1.2) APTT (22.0-30.0) sec Fibrinogen (200-500) mg/dL ABG pH (7.35-7.45) ABG pCO2 (35-45) mmHg ABG pO2 (83-108) mmHg ABG HCO3 (21-25) mmol/L ABG Total CO2 (19-24) mmol/L ABG O2 Saturation (94-97) % ABG Hematocrit (34.0-46.0) % ABG Sodium (135-146) mmol/L ABG Potassium (3.4-4.5) mmol/L ABG Ionized Calcium (4.5-5.3) mg/dL ABG Glucose (75-99) mg/dL ABG Lactic Acid (0.5-1.6) mmol/L Hemoglobin (13.0-17.5) gm/dL Sodium (137-145) mmol/L BUN (9-20) mg/dL Glucose (74-99) mg/dL POC Glucose (mg/dL) 151 H 141 H 132 H (70-110) mg/dL Calcium (8.4-10.2) mg/dL Ionized Calcium Jessie (4.5-5.3) mg/dL Magnesium (1.6-2.3) mg/dL AST (17-59) U/L Alkaline Phosphatase (38-126) U/L Total Protein (6.3-8.2) g/dL Albumin (3.5-5.0) g/dL Arterial Blood Potassium (3.4-4.5) mmol/L Arterial Blood Glucose (75-99) mg/dL Crossmatch 07/28/23 07/28/23 07/28/23 Range/Units 03:00 03:00 04:59 RBC 2.28 L (4.30-5.90) m/uL Hgb 7.2 L (13.0-17.5) gm/dL Hct 20.9 L (39.0-53.0) % RDW 15.8 H (11.5-15.5) % Plt Count 50 L (150-450) k/uL Neutrophils # (1.3-7.7) k/uL Lymphocytes # 0.4 L (1.0-4.8) k/uL PT (9.0-12.0) sec INR (<1.2) APTT (22.0-30.0) sec Fibrinogen (200-500) mg/dL ABG pH (7.35-7.45) ABG pCO2 (35-45) mmHg ABG pO2 (83-108) mmHg ABG HCO3 (21-25) mmol/L ABG Total CO2 (19-24) mmol/L ABG O2 Saturation (94-97) % ABG Hematocrit (34.0-46.0) % ABG Sodium (135-146) mmol/L ABG Potassium (3.4-4.5) mmol/L ABG Ionized Calcium (4.5-5.3) mg/dL ABG Glucose (75-99) mg/dL ABG Lactic Acid (0.5-1.6) mmol/L Hemoglobin (13.0-17.5) gm/dL Sodium 135 L (137-145) mmol/L BUN 23 H (9-20) mg/dL Glucose 108 H (74-99) mg/dL POC Glucose (mg/dL) 157 H (70-110) mg/dL Calcium 7.0 L (8.4-10.2) mg/dL Ionized Calcium Jessie 4.2 L (4.5-5.3) mg/dL Magnesium 2.5 H (1.6-2.3) mg/dL AST 142 H (17-59) U/L Alkaline Phosphatase 34 L (38-126) U/L Total Protein 4.3 L (6.3-8.2) g/dL Albumin 2.6 L (3.5-5.0) g/dL Arterial Blood Potassium (3.4-4.5) mmol/L Arterial Blood Glucose (75-99) mg/dL Crossmatch 07/28/23 07/28/23 07/28/23 Range/Units 06:06 06:49 09:08 RBC (4.30-5.90) m/uL Hgb (13.0-17.5) gm/dL Hct (39.0-53.0) % RDW (11.5-15.5) % Plt Count (150-450) k/uL Neutrophils # (1.3-7.7) k/uL Lymphocytes # (1.0-4.8) k/uL PT (9.0-12.0) sec INR (<1.2) APTT (22.0-30.0) sec Fibrinogen (200-500) mg/dL ABG pH (7.35-7.45) ABG pCO2 (35-45) mmHg ABG pO2 (83-108) mmHg ABG HCO3 (21-25) mmol/L ABG Total CO2 (19-24) mmol/L ABG O2 Saturation (94-97) % ABG Hematocrit (34.0-46.0) % ABG Sodium (135-146) mmol/L ABG Potassium (3.4-4.5) mmol/L ABG Ionized Calcium (4.5-5.3) mg/dL ABG Glucose (75-99) mg/dL ABG Lactic Acid (0.5-1.6) mmol/L Hemoglobin (13.0-17.5) gm/dL Sodium (137-145) mmol/L BUN (9-20) mg/dL Glucose (74-99) mg/dL POC Glucose (mg/dL) 148 H 154 H 147 H (70-110) mg/dL Calcium (8.4-10.2) mg/dL Ionized Calcium Jessie (4.5-5.3) mg/dL Magnesium (1.6-2.3) mg/dL AST (17-59) U/L Alkaline Phosphatase (38-126) U/L Total Protein (6.3-8.2) g/dL Albumin (3.5-5.0) g/dL Arterial Blood Potassium (3.4-4.5) mmol/L Arterial Blood Glucose (75-99) mg/dL Crossmatch 07/28/23 07/28/23 07/28/23 Range/Units 10:11 12:04 13:58 RBC (4.30-5.90) m/uL Hgb (13.0-17.5) gm/dL Hct (39.0-53.0) % RDW (11.5-15.5) % Plt Count (150-450) k/uL Neutrophils # (1.3-7.7) k/uL Lymphocytes # (1.0-4.8) k/uL PT (9.0-12.0) sec INR (<1.2) APTT (22.0-30.0) sec Fibrinogen (200-500) mg/dL ABG pH (7.35-7.45) ABG pCO2 (35-45) mmHg ABG pO2 (83-108) mmHg ABG HCO3 (21-25) mmol/L ABG Total CO2 (19-24) mmol/L ABG O2 Saturation (94-97) % ABG Hematocrit (34.0-46.0) % ABG Sodium (135-146) mmol/L ABG Potassium (3.4-4.5) mmol/L ABG Ionized Calcium (4.5-5.3) mg/dL ABG Glucose (75-99) mg/dL ABG Lactic Acid (0.5-1.6) mmol/L Hemoglobin (13.0-17.5) gm/dL Sodium (137-145) mmol/L BUN (9-20) mg/dL Glucose (74-99) mg/dL POC Glucose (mg/dL) 111 H 151 H 141 H (70-110) mg/dL Calcium (8.4-10.2) mg/dL Ionized Calcium Jessie (4.5-5.3) mg/dL Magnesium (1.6-2.3) mg/dL AST (17-59) U/L Alkaline Phosphatase (38-126) U/L Total Protein (6.3-8.2) g/dL Albumin (3.5-5.0) g/dL Arterial Blood Potassium (3.4-4.5) mmol/L Arterial Blood Glucose (75-99) mg/dL Crossmatch
[2023-07-28 16:04] LABS: Glucose,Whole Blood 141 mg/dL (70-110)
[2023-07-28 17:10] LABS: Glucose,Whole Blood 163 mg/dL (70-110)
[2023-07-28 18:01] LABS: Glucose,Whole Blood 153 mg/dL (70-110)
[2023-07-28 19:09] LABS: Glucose,Whole Blood 140 mg/dL (70-110)
[2023-07-28] MEDS: SENNOSIDES-DOCUSATE SODIUM 1 EACH TAB PO SCH (19:59)
[2023-07-28] MEDS: ACETAMINOPHEN TAB 325 MG TAB PO PRN (19:59)
[2023-07-28] MEDS: SODIUM CHLORIDE 0.9% 1,000 ML IV SCH (20:00)
[2023-07-28] MEDS: ATORVASTATIN 40 MG TAB PO SCH (20:00)
[2023-07-28 20:07] LABS: Glucose,Whole Blood 114 mg/dL (70-110)
[2023-07-28 22:07] LABS: Glucose,Whole Blood 136 mg/dL (70-110)
[2023-07-29 00:39] LABS: Glucose,Whole Blood 136 mg/dL (70-110)
[2023-07-29] MEDS: HYDROcodone/APAP 10-325MG 1 EACH TAB PO PRN ×2 (00:46→05:45)
[2023-07-29] MEDS: HYDROcodone/APAP 5-325MG 1 EACH TAB PO PRN ×4 (02:30→20:57)
[2023-07-29 02:31] LABS: Glucose,Whole Blood 147 mg/dL (70-110)
[2023-07-29] MEDS: ALPRAZolam 0.25 MG TAB PO PRN ×3 (05:00→22:36)
[2023-07-29 05:01] LABS: Glucose,Whole Blood 125 mg/dL (70-110)
[2023-07-29 05:53] LABS: Ionized Calcium 4.6 mg/dL (4.5-5.3)
[2023-07-29 05:54] LABS: Anisocytosis Slight; HCT 20.4 % (39.0-53.0); MCH 31.3 pg (25.0-35.0); MCHC 33.6 g/dL (31.0-37.0); MCV 93.2 fL (80.0-100.0); Mean Platelet Volume 9.7; Poikilocytosis Slight; RBC 2.19 m/uL (4.30-5.90); RDW 16.5 % (11.5-15.5)
[2023-07-29 05:57] LABS: HGB 6.9 gm/dL (13.0-17.5); Platelet Count 82 k/uL (150-450)
[2023-07-29 06:02] LABS: ALT 28 U/L (4-49); AST 148 U/L (17-59); African American GFR (CKD) >90 (>60 ml/min/1.73 sqM); Albumin 2.7 g/dL (3.5-5.0); Alkaline Phosphatase 47 U/L (38-126); Anion Gap 3 mmol/L; Blood Urea Nitrogen 23 mg/dL (9-20); Calcium 7.8 mg/dL (8.4-10.2); Carbon Dioxide 25 mmol/L (22-30); Chloride 104 mmol/L (98-107); Glucose 103 mg/dL (74-99); Non-African American GFR(CKD) 87 (>60 ml/min/1.73 sqM); Potassium 4.3 mmol/L (3.5-5.1); Sodium 132 mmol/L (137-145); Total Bilirubin 1.2 mg/dL (0.2-1.3); Total Protein 4.8 g/dL (6.3-8.2)
[2023-07-29 06:16] LABS: Lymphocytes # (M) 0.54 k/uL (1.0-4.8); Monocytes # (M) 0.27 k/uL (0-1.0); Neutrophils # (M) 8.19 k/uL (1.3-7.7); Neutrophils % (M) 91 %; Nucleated Red Blood Cells 2 /100 WBC (0-0); Polychromasia Present; Total Cells Counted 100
[2023-07-29 06:17] LABS: Anisocytosis (M) Present
[2023-07-29 06:55] LABS: Glucose,Whole Blood 114 mg/dL (70-110)
[2023-07-29] MEDS: PANTOPRAZOLE 40 MG TABLET PO SCH (06:56)
[2023-07-29] MEDS ORDERED: DEXTROSE 50% SYRINGE 50 ML IVP PRN ×2 (07:20)
--- NOTE | 2023-07-29 07:39 | XR ---
EXAMINATION TYPE: XR chest 1V portable DATE OF EXAM: 07/29/2023 5:47 AM CLINICAL INDICATION:Male, 73 years old with history of Post Operative Cardiac Surgery; [facility] COMPARISON: Chest radiograph from one day prior. TECHNIQUE: XR chest 1V portable Frontal view of the chest. FINDINGS: Lungs/Pleura: Right midlung airspace opacities similar appearance of the left lower lung airspace opacities. There is no evidence of pleural effusion or pneumothorax. Pulmonary vascularity: Unremarkable. Heart/mediastinum: Cardiomediastinal silhouette is unremarkable. Atherosclerotic calcifications are seen in the aorta. Left atrial appendage occlusion device is present. Musculoskeletal: No acute osseous pathology. Midline sternotomy wires are noted. Other findings: None Lines/Tubes: There is a [place]-Cecy catheter sheath remains in place. IMPRESSION: 1. Right lung airspace opacities concerning for developing pneumonia. Attention follow-up imaging. 2. Stable left lower lung airspace opacities.
--- NOTE | 2023-07-29 07:47 | P.PN ---
Subjective Progress Note Date: 07/29/23 Principal diagnosis: Severe diffuse calcific triple-vessel coronary artery disease with chronically occluded RCA and first OM, unstable angina, severe mitral valve regurgitation wi th prolapse of P2 with ruptured chord, moderate tricuspid valve regurgitation with severe pulmonary hypertension. History of hypertension, hyperlipidemia, abdominal aortic aneurysm with calcification of the posterior aspect of the ascending aorta, chronic ongoing tobacco dependence, moderate restrictive lung disease, GERD, depression POD #2 triple-vessel coronary artery bypass grafting using the left internal mammary artery to the left anterior descending artery, reverse saphenous vein graft from the aorta to the first obtuse marginal artery, reverse saphenous vein graft from the aorta to the posterior descending artery, complex mitral valve repair with construction of two pairs of NeoChords to P2 and posterior ring annuloplasty using a 34 mm AnnuloFlex ring, tricuspid valve repair using a 28 mm MC3 ring, exclusion of the left atrial appendage using a 40 mm AtriClip, endoscopic harvesting of the left greater saphenous vein, intraoperative graft flow measurements using the [employer] system, intraoperative transesophageal echocardiogram and epiaortic scanning Postoperative acute blood loss anemia and thrombocytopenia, expected given hemodilution and cardiopulmonary bypass pump The patient was seen and examined this morning sitting up in a recliner in no acute distress although he continues to appear anxious at times. Remains in sinus rhythm, hemodynamically stable on no pressors although cuff pressure and arterial pressure monitoring not correlating, arterial pressure has been all over the place, cuff pressure has been consistent. Patient does complain of some post surgical pain which is better controlled with change in medication regimen, denies shortness of breath. Chest x-ray, labs reviewed. Patient remains on 5 L nasal cannula with oxygen saturation in the high 90s, able to achieve 750-1000 mL on his incentive spirometry. Right internal jugular cordis, right radial arterial line, mediastinal/left pleural chest tubes all present. Patient to ambulate in the hallway yesterday with assist. Hemoglobin 6.9 this morning, was 7.2 yesterday, remains hemodynamically stable. No other new concerns. Objective - Vital Signs Vital signs: Vital Signs Temp 98.2 F 07/29/23 04:00 Pulse 67 07/29/23 07:00 Resp 34 H 07/29/23 07:00 BP 136/61 07/29/23 07:00 Pulse Ox 97 07/29/23 07:00 FiO2 50 07/27/23 22:02 Intake & Output 07/28/23 07/29/23 07/29/23 18:59 06:59 18:59 Intake Total 1199.025 451.232 36 Output Total 655 685 15 Balance 544.025 -233.768 21 Weight 77.1 kg Intake: IV 621 432 36 CI/CO 20 Calcium Gluconate in NaCl 100 2 gm In Saline 1 100ml. bag @ 100 mls/hr IVPB ONCE ONE Rx#:[id number] Pressure bags (0.9 Sodium 81 72 6 Chloride) Sodium Chloride 0.9% 1, 370 360 30 000 ml @ 20 mls/hr IV . Q24H [facility] Rx#:[id number] ceFAZolin 2 gm In Sodium 50 Chloride 0.9% 50 ml @ 100 mls/hr IVPB Q8H [facility] Rx#: [id number] Intake, IV Titration 78.025 19.232 Amount Insulin Regular 100 unit 28.981 19.232 In Sodium Chloride 0.9% 100 ml @ Per Protocol IV .Q0M [facility] Rx#:[id number] Milrinone-D5w Pmx 20 mg 49.044 In Dextrose/Water 1 100ml .bag @ 0.25 MCG/KG/MIN 5. 443 mls/hr IV .[id number] [facility] Rx#:[id number] Oral 500 Output: Chest Tube Drainage 230 260 L. plurel 90 100 MS 140 160 Drainage 15 Left Calf 15 Urine 410 425 15 Other: Voiding Method Indwelling Catheter Indwelling Catheter ABP, PAP, CO, CI - Last Documented Arterial Blood Pressure 187/51 Pulmonary Artery Pressure 52/14 Cardiac Output 4 Cardiac Index 2.2 - Exam CONSTITUTIONAL: Calm, cooperative, no acute distress RESPIRATORY: Lungs sounds diminished bilaterally, coarse on the right. Respirations even, nonlabored. Currently on 5 L nasal cannula with oxygen saturation 97%. Able to achieve 750-1000 mL on incentive spirometry. Strong loose cough. CARDIOVASCULAR: S1, S2 present. Regular rate and rhythm, sinus rhythm on telemetry. Sternum stable. Palpable peripheral pulses bilaterally. No edema present. No calf pain or tenderness noted. Heart hugger in place with patient demonstrating appropriate use. Antiembolism stockings, SCDs present. GASTROINTESTINAL: Abdomen soft, nontender, nondistended. Active bowel sounds present 4 quadrants. Tolerating diet. Positive flatus GENITOURINARY: Irizarry present draining clear, yellow urine. Output overnight 20-55 mL per hour, 835 mL the last 24 hours INTEGUMENTARY: Skin is warm and dry with evidence of good perfusion. Anterior chest incision well approximated and covered with dry intact dressing. Left lower extremity EVH site well approximated NEUROLOGIC: Cranial nerves II through XII intact MUSKULOSKELETAL: Able to move all extremities, strength equal bilaterally, gait normal PSYCHIATRIC: Alert and oriented to person place and time, intact judgment and insight INVASIVE LINES AND TUBES: Mediastinal/left pleural chest tubes present and connected to wall suction, no air leaks present. Mediastinal tube with 80 mL serosanguineous drainage overnight, 250 mL the last 24 hours. Left pleural chest tube with 70 mL serosanguineous drainage overnight, 250 mL in the last 24 hours. A/V epicardial pacemaker wires present, connected to generator, AAI mode with backup rate 60 bpm. Right internal jugular cordis, right radial arterial line present. Last CVP 10. - Allied health notes Allied health notes reviewed: nursing - Labs CBC & Chem 7: 07/29/23 05:00 07/29/23 05:00 Labs: Abnormal Lab Results - Last 24 Hours (Table) 07/28/23 07/28/23 07/28/23 Range/Units 09:08 10:11 12:04 RBC (4.30-5.90) m/uL Hgb (13.0-17.5) gm/dL Hct (39.0-53.0) % RDW (11.5-15.5) % Plt Count (150-450) k/uL Neutrophils # (Manual) (1.3-7.7) k/uL Lymphocytes # (Manual) (1.0-4.8) k/uL Nucleated RBCs (0-0) /100 WBC Sodium (137-145) mmol/L BUN (9-20) mg/dL Glucose (74-99) mg/dL POC Glucose (mg/dL) 147 H 111 H 151 H (70-110) mg/dL Calcium (8.4-10.2) mg/dL AST (17-59) U/L Total Protein (6.3-8.2) g/dL Albumin (3.5-5.0) g/dL 07/28/23 07/28/23 07/28/23 Range/Units 13:58 16:03 17:10 RBC (4.30-5.90) m/uL Hgb (13.0-17.5) gm/dL Hct (39.0-53.0) % RDW (11.5-15.5) % Plt Count (150-450) k/uL Neutrophils # (Manual) (1.3-7.7) k/uL Lymphocytes # (Manual) (1.0-4.8) k/uL Nucleated RBCs (0-0) /100 WBC Sodium (137-145) mmol/L BUN (9-20) mg/dL Glucose (74-99) mg/dL POC Glucose (mg/dL) 141 H 141 H 163 H (70-110) mg/dL Calcium (8.4-10.2) mg/dL AST (17-59) U/L Total Protein (6.3-8.2) g/dL Albumin (3.5-5.0) g/dL 07/28/23 07/28/23 07/28/23 Range/Units 17:59 19:08 20:06 RBC (4.30-5.90) m/uL Hgb (13.0-17.5) gm/dL Hct (39.0-53.0) % RDW (11.5-15.5) % Plt Count (150-450) k/uL Neutrophils # (Manual) (1.3-7.7) k/uL Lymphocytes # (Manual) (1.0-4.8) k/uL Nucleated RBCs (0-0) /100 WBC Sodium (137-145) mmol/L BUN (9-20) mg/dL Glucose (74-99) mg/dL POC Glucose (mg/dL) 153 H 140 H 114 H (70-110) mg/dL Calcium (8.4-10.2) mg/dL AST (17-59) U/L Total Protein (6.3-8.2) g/dL Albumin (3.5-5.0) g/dL 07/28/23 07/29/23 07/29/23 Range/Units 22:06 00:38 02:30 RBC (4.30-5.90) m/uL Hgb (13.0-17.5) gm/dL Hct (39.0-53.0) % RDW (11.5-15.5) % Plt Count (150-450) k/uL Neutrophils # (Manual) (1.3-7.7) k/uL Lymphocytes # (Manual) (1.0-4.8) k/uL Nucleated RBCs (0-0) /100 WBC Sodium (137-145) mmol/L BUN (9-20) mg/dL Glucose (74-99) mg/dL POC Glucose (mg/dL) 136 H 136 H 147 H (70-110) mg/dL Calcium (8.4-10.2) mg/dL AST (17-59) U/L Total Protein (6.3-8.2) g/dL Albumin (3.5-5.0) g/dL 07/29/23 07/29/23 07/29/23 Range/Units 04:59 05:00 05:00 RBC 2.19 L (4.30-5.90) m/uL Hgb 6.9 L* (13.0-17.5) gm/dL Hct 20.4 L (39.0-53.0) % RDW 16.5 H (11.5-15.5) % Plt Count 82 L D (150-450) k/uL Neutrophils # (Manual) 8.19 H (1.3-7.7) k/uL Lymphocytes # (Manual) 0.54 L (1.0-4.8) k/uL Nucleated RBCs 2 H (0-0) /100 WBC Sodium 132 L (137-145) mmol/L BUN 23 H (9-20) mg/dL Glucose 103 H (74-99) mg/dL POC Glucose (mg/dL) 125 H (70-110) mg/dL Calcium 7.8 L (8.4-10.2) mg/dL AST 148 H (17-59) U/L Total Protein 4.8 L (6.3-8.2) g/dL Albumin 2.7 L (3.5-5.0) g/dL 07/29/23 Range/Units 06:54 RBC (4.30-5.90) m/uL Hgb (13.0-17.5) gm/dL Hct (39.0-53.0) % RDW (11.5-15.5) % Plt Count (150-450) k/uL Neutrophils # (Manual) (1.3-7.7) k/uL Lymphocytes # (Manual) (1.0-4.8) k/uL Nucleated RBCs (0-0) /100 WBC Sodium (137-145) mmol/L BUN (9-20) mg/dL Glucose (74-99) mg/dL POC Glucose (mg/dL) 114 H (70-110) mg/dL Calcium (8.4-10.2) mg/dL AST (17-59) U/L Total Protein (6.3-8.2) g/dL Albumin (3.5-5.0) g/dL - Imaging and Cardiology Chest x-ray: report reviewed, image reviewed Assessment and Plan Assessment: Severe diffuse calcific triple-vessel coronary artery disease with chronically occluded RCA and first OM, unstable angina, status post 3V CABG Severe mitral valve regurgitation with prolapse of P2 with ruptured chord, status post complex mitral valve repair Moderate tricuspid valve regurgitation with severe pulmonary hypertension, status post tricuspid valve repair History of hypertension Hyperlipidemia, treated, cholesterol 121, LDL 60.5treated Abdominal aortic aneurysm with calcification of the posterior aspect of the ascending aorta Chronic ongoing tobacco dependence Moderate restrictive lung disease, preoperative FEV1 54% of predicted GERD Depression Postoperative acute blood loss anemia and thrombocytopenia, expected Plan: Continue to optimize medical management with low dose aspirin, plavix, statin and beta yamile. Will increase beta yamile as able. May start ARB for afterload reduction later today Wean oxygen as tolerated. Encourage incentive spirometry 10 x every hour while awake. Bronchodilators per pulmonology Increase activity as tolerated. PT/OT/cardiac rehab consulted Will monitor daily labs and CXR. Electrolyte replacement per protocol. HIT panel pending. Will give IV calcium Will transfuse 1 unit PRBCs followed by 20 mg IVP lasix GI/DVT prophylaxis Pain control with current medication regimen. Avoid toradol due to thrombocytopenia Insulin management per internal medicine, patient is not diabetic with preoperative HgbA1c 5.8%, but needs tight blood sugar control to prevent infection Will discontinue mediastinal chest tube, continue left pleural chest tube for another 24 hours Continue irizarry catheter for another 24 hours Continue to record strict accurate I/Os Daily weights Smoking cessation counseling and education provided More recommendations to follow based on patient's progress
[2023-07-29] MEDS ORDERED: FUROSEMIDE 10 MG/ML 2 ML VIAL IV ONE (08:25)
[2023-07-29] MEDS ORDERED: CALCIUM GLUCONATE IN NACL 1 GM in SALINE 1 100ML.BAG IVPB ONE (08:25)
[2023-07-29] MEDS: IPRATROPIUM-ALBUTEROL 3 ML NEB INHALATION SCH ×4 (08:26→20:41)
[2023-07-29] MEDS: INSULIN ASPART (NovoLOG) 100 UNIT/ML VIAL SQ SCH ×4 (08:27→20:58)
[2023-07-29] MEDS: ASPIRIN 81 MG PO SCH (08:46)
[2023-07-29] MEDS: FONDAPARINUX 2.5 MG/0.5 ML SYRINGE SQ SCH (08:47)
[2023-07-29] MEDS: METOPROLOL TARTRATE 12.5 MG TAB PO SCH ×2 (08:47→20:57)
[2023-07-29] MEDS: CLOPIDOGREL 75 MG TAB PO SCH (08:47)
[2023-07-29] MEDS: CHOLECALCIFEROL 25 MCG (1000 IU) TABLET PO SCH (08:47)
[2023-07-29] MEDS: CITALOPRAM HYDROBROMIDE 20 MG TAB PO SCH (08:47)
[2023-07-29] MEDS: NICOTINE 21MG/24HR PATCH TRANSDERM SCH (08:48)
--- NOTE | 2023-07-29 09:40 | P.PN ---
Subjective HISTORY OF PRESENT ILLNESS: This is a 73-year-old male who was admitted to the hospital secondary to non- STEMI. Patient underwent cardiac catheterization revealing severe triple vessel disease. 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 Patient examined this morning at the bedside. Patient denies any chest pain or pressure. He denies shortness of breath. He does report that he fell overnight and hit his nose. He reports feeling a little bit lightheaded. Vital signs have been stable. Telemetry reveals sinus mechanism. 07/28 Patient seen and examined. Patient underwent CABG with GIBBS to LAD, SVG to OM, SVG to PDA, mitral valve repair with NeoChords and ring annuloplasty as well as tricupid ring annuloplasty and exclusion of KASANDRA on 07/27/2023. Patient has been doing okay however has been feeling somewhat anxious. Milrinone was discontinued this morning. Blood pressures have been borderline in the 100-110 systolic. Patient still having some incision pain. Denies any significant shortness breath. Does not have an appetite. CVP reading 9. Has been able to tolerate low-dose metoprolol. Hemoglobin down to 7.2, platelets 50, creatinine 0.9, AST 142, ALT 24, albumin 2.6. Maintaining sinus rhythm. 07/29 Patient seen and examined. Patient admits he is feeling somewhat better. Den ies any chest pain or pressure. Has a little bit more of an appetite. Significant discrepancy between right radial arterial line and manual blood pressure cuff. Hemoglobin down to 6.9 and will receive 1 unit of blood. Creatinine remains stable. PHYSICAL EXAM: VITAL SIGNS: Reviewed. GENERAL: Well-developed in no acute distress. NECK: Supple. No JVD or thyromegaly LUNGS: Respirations even and unlabored. Lungs essentially clear to auscultation bilaterally. HEART: Regular rate and rhythm. S1 and S2 heard. Systolic murmur noted. EXTREMITIES: Normal range of motion. No clubbing or cyanosis. Peripheral pulses intact. No lower extremity edema ASSESSMENT: Non-STEMI Severe triple vessel coronary artery disease s/p CABG GIBBS to LAD, SVG to OM, SVG to PDA 07/27 Valvular heart disease, s/p mitral valve repair with NeoChords and mitral ring annuloplasty as well as tricupid ring annuloplasty Hypertension Hyperlipidemia Abdominal aortic aneurysm Nicotine dependence PLAN: Patient appears to be slowly improving. Monitor hemoglobin closely and transfuse 1 unit today. Continue with low-dose metoprolol. Possibly add losartan if blood pressure tolerates. Objective - Vital Signs Vital signs: Vital Signs Temp 98.9 F 07/29/23 08:00 Pulse 75 07/29/23 09:00 Resp 34 H 07/29/23 09:00 BP 138/69 07/29/23 09:00 Pulse Ox 93 L 07/29/23 09:00 FiO2 50 07/27/23 22:02 Intake & Output 07/28/23 07/29/23 07/29/23 18:59 06:59 18:59 Intake Total 1199.025 451.232 98 Output Total 655 685 180 Balance 544.025 -233.768 -82 Weight 77.1 kg Intake: IV 621 432 98 CI/CO 20 Calcium Gluconate in NaCl 100 2 gm In Saline 1 100ml. bag @ 100 mls/hr IVPB ONCE ONE Rx#:[id number] Pressure bags (0.9 Sodium 81 72 18 Chloride) Sodium Chloride 0.9% 1, 370 360 80 000 ml @ 20 mls/hr IV . Q24H [facility] Rx#:[id number] ceFAZolin 2 gm In Sodium 50 Chloride 0.9% 50 ml @ 100 mls/hr IVPB Q8H [facility] Rx#: [id number] Intake, IV Titration 78.025 19.232 Amount Insulin Regular 100 unit 28.981 19.232 In Sodium Chloride 0.9% 100 ml @ Per Protocol IV .Q0M [facility] Rx#:[id number] Milrinone-D5w Pmx 20 mg 49.044 In Dextrose/Water 1 100ml .bag @ 0.25 MCG/KG/MIN 5. 443 mls/hr IV .[id number] [facility] Rx#:[id number] Oral 500 Output: Chest Tube Drainage 230 260 50 L. plurel 90 100 40 MS 140 160 10 Drainage 15 Left Calf 15 Urine 410 425 130 Other: Voiding Method Indwelling Catheter Indwelling Catheter ABP, PAP, CO, CI - Last Documented Arterial Blood Pressure 199/51 Pulmonary Artery Pressure 52/14 Cardiac Output 4 Cardiac Index 2.2 - Labs CBC & Chem 7: 07/29/23 05:00 09/08/23 05:00 Labs: Abnormal Lab Results - Last 24 Hours (Table) 07/28/23 07/28/23 07/28/23 Range/Units 10:11 12:04 13:58 RBC (4.30-5.90) m/uL Hgb (13.0-17.5) gm/dL Hct (39.0-53.0) % RDW (11.5-15.5) % Plt Count (150-450) k/uL Neutrophils # (Manual) (1.3-7.7) k/uL Lymphocytes # (Manual) (1.0-4.8) k/uL Nucleated RBCs (0-0) /100 WBC Sodium (137-145) mmol/L BUN (9-20) mg/dL Glucose (74-99) mg/dL POC Glucose (mg/dL) 111 H 151 H 141 H (70-110) mg/dL Calcium (8.4-10.2) mg/dL AST (17-59) U/L Total Protein (6.3-8.2) g/dL Albumin (3.5-5.0) g/dL 07/28/23 07/28/23 07/28/23 Range/Units 16:03 17:10 17:59 RBC (4.30-5.90) m/uL Hgb (13.0-17.5) gm/dL Hct (39.0-53.0) % RDW (11.5-15.5) % Plt Count (150-450) k/uL Neutrophils # (Manual) (1.3-7.7) k/uL Lymphocytes # (Manual) (1.0-4.8) k/uL Nucleated RBCs (0-0) /100 WBC Sodium (137-145) mmol/L BUN (9-20) mg/dL Glucose (74-99) mg/dL POC Glucose (mg/dL) 141 H 163 H 153 H (70-110) mg/dL Calcium (8.4-10.2) mg/dL AST (17-59) U/L Total Protein (6.3-8.2) g/dL Albumin (3.5-5.0) g/dL 07/28/23 07/28/23 07/28/23 Range/Units 19:08 20:06 22:06 RBC (4.30-5.90) m/uL Hgb (13.0-17.5) gm/dL Hct (39.0-53.0) % RDW (11.5-15.5) % Plt Count (150-450) k/uL Neutrophils # (Manual) (1.3-7.7) k/uL Lymphocytes # (Manual) (1.0-4.8) k/uL Nucleated RBCs (0-0) /100 WBC Sodium (137-145) mmol/L BUN (9-20) mg/dL Glucose (74-99) mg/dL POC Glucose (mg/dL) 140 H 114 H 136 H (70-110) mg/dL Calcium (8.4-10.2) mg/dL AST (17-59) U/L Total Protein (6.3-8.2) g/dL Albumin (3.5-5.0) g/dL 07/29/23 07/29/23 07/29/23 Range/Units 00:38 02:30 04:59 RBC (4.30-5.90) m/uL Hgb (13.0-17.5) gm/dL Hct (39.0-53.0) % RDW (11.5-15.5) % Plt Count (150-450) k/uL Neutrophils # (Manual) (1.3-7.7) k/uL Lymphocytes # (Manual) (1.0-4.8) k/uL Nucleated RBCs (0-0) /100 WBC Sodium (137-145) mmol/L BUN (9-20) mg/dL Glucose (74-99) mg/dL POC Glucose (mg/dL) 136 H 147 H 125 H (70-110) mg/dL Calcium (8.4-10.2) mg/dL AST (17-59) U/L Total Protein (6.3-8.2) g/dL Albumin (3.5-5.0) g/dL 07/29/23 07/29/23 07/29/23 Range/Units 05:00 05:00 06:54 RBC 2.19 L (4.30-5.90) m/uL Hgb 6.9 L* (13.0-17.5) gm/dL Hct 20.4 L (39.0-53.0) % RDW 16.5 H (11.5-15.5) % Plt Count 82 L D (150-450) k/uL Neutrophils # (Manual) 8.19 H (1.3-7.7) k/uL Lymphocytes # (Manual) 0.54 L (1.0-4.8) k/uL Nucleated RBCs 2 H (0-0) /100 WBC Sodium 132 L (137-145) mmol/L BUN 23 H (9-20) mg/dL Glucose 103 H (74-99) mg/dL POC Glucose (mg/dL) 114 H (70-110) mg/dL Calcium 7.8 L (8.4-10.2) mg/dL AST 148 H (17-59) U/L Total Protein 4.8 L (6.3-8.2) g/dL Albumin 2.7 L (3.5-5.0) g/dL
[2023-07-29 11:04] VITALS: BMI 29.1
[2023-07-29 11:12] LABS: Glucose,Whole Blood 164 mg/dL (70-110)
--- NOTE | 2023-07-29 11:14 | P.PN ---
Subjective Progress Note Date: 07/29/23 Principal diagnosis: Coronary artery disease. The patient is seen today 07/22/2023 in follow-up on the selective care unit. He is currently sitting up in bed. Awake and alert in no acute distress. He is maintaining O2 saturations in the 90s on 3 L/m per nasal cannula. He is pulling approximately 1200 ML's on his incentive spirometer. He continues to be worked up for possible bypass surgery along with mitral valve and tricuspid valve repairs. FEV1 value was 1.26 or 54% of predicted. NicoDerm patch remains in place. The patient is seen today 07/23/2023 in follow-up on the selective care unit. He is currently sitting up in a chair at the bedside. Awake and alert in no acute distress. Denies any worsening shortness of breath cough or congestion. Denies any chest pain. He is maintaining good O2 saturations up to 97% on room air. Afebrile. Sodium 135. Potassium 3.7. Bicarb 27. BUN 22. Creatinine 0.90. NicoDerm patch in place. The patient is seen today 07/24/2023 in follow-up on the selective care unit. Awake and alert in no acute distress. Sitting in bed. Denies any chest pain. No palpitations. No worsening shortness of breath or cough. He did have a nightmare and some confusion last evening. Oriented 3 today. Maintaining O2 saturations in the 90s on 2 L/m per nasal cannula. He is afebrile. Hemodynamically stable. NicoDerm patch in place. The patient is seen today 07/25/2023 in follow-up on the selective care unit. He is ambulating in his room. Awake and alert in no acute distress. Denies any chest pain. Denies any worsening shortness of breath, cough or congestion. He is maintaining good O2 saturations in the 90s on 2 L/m per nasal cannula. Afebrile. Hemodynamically stable. Sodium 134. Potassium 4.3. Bicarb 28. BUN 19. Creatinine 0.87. Glucose 113. NicoDerm patch remains in place. Progress note dated 07/26/2023. The patient is seen today in room 356. The patient is scheduled to have bypass grafting, on July 27. Currently he is on 2 L of oxygen. No IV fluids. He is sitting at the bedside. White count 5.4, hemoglobin 10.4, hematocrit 30.9, with a normal platelet count. Sodium 132, potassium 4.3, chlorides 98, CO2 29, BUN 21, creatinine 0.85. Chest x-ray shows changes of COPD, with mild interstitial pulmonary edema. Progress note dated 07/27/2023. The patient was seen this morning in room 356. The patient is scheduled to have open-heart surgery today, 07/27/2023. He is currently on 2 L of oxygen. Lab data today includes a glucose of 121. Lab data from July 26 have been re viewed. X-rays, medications, and other information has also been reviewed. Previous chest x-ray shows changes of COPD, with mild interstitial pulmonary edema. Progress note dated 07/28/2023. The patient is postop day #1, status post three-vessel bypass grafting, mitral valve repair, tricuspid valve repair, and exclusion of the left atrial appendage. The patient's currently been extubated to 4 L of oxygen. He was extubated on July 27, at nighttime. He is getting saline at 50 mL an hour, and an insulin drip at 2.5 units an hour. The patient is very anxious and received some benzodiazepine. White count 6.9, hemoglobin 7.2, hematocrit 20.9, and a platelet count of 50,000. Sodium 135, potassium 4.6, chlorides 105, CO2 26, BUN 23, and creatinine 0.94. Chest x-ray shows some mild pulmonary vascular congestion, and some basilar atelectasis. The endotracheal tube has been removed. Progress note dated 07/29/2023. This patient is seen today in room 266. He's postoperative day #2, status post three-vessel bypass grafting, mitral and tricuspid valve repair, and exclusion of the left atrial appendage. Patient is currently on 4 L of oxygen. He is getting saline at 20 mL an hour. He will get 1 unit of packed red blood cells today. White count is 9, 11 6.9, hematocrit 20.4, and platelet count 82,000. Sodium 132, potassium 4.3, chlorides 104, CO2 25, BUN 23, and creatinine 0.82. Albumin is 2.7. Chest x-ray shows some airspace opacities at the right lung base. There is also some infiltrate or atelectasis at the left lung base. Objective - Vital Signs Vital signs: Vital Signs Temp 98.4 F 07/29/23 10:49 Pulse 75 07/29/23 11:00 Resp 19 07/29/23 11:00 BP 85/69 07/29/23 11:00 Pulse Ox 92 L 07/29/23 11:00 FiO2 50 07/27/23 22:02 Intake & Output 07/28/23 07/29/23 07/29/23 18:59 06:59 18:59 Intake Total 1199.025 451.232 124 Output Total 655 685 280 Balance 544.025 -233.768 -156 Weight 77.1 kg 77.1 kg Intake: IV 621 432 124 CI/CO 20 Calcium Gluconate in NaCl 100 2 gm In Saline 1 100ml. bag @ 100 mls/hr IVPB ONCE ONE Rx#:[id number] Pressure bags (0.9 Sodium 81 72 24 Chloride) Sodium Chloride 0.9% 1, 370 360 100 000 ml @ 20 mls/hr IV . Q24H [facility] Rx#:[id number] ceFAZolin 2 gm In Sodium 50 Chloride 0.9% 50 ml @ 100 mls/hr IVPB Q8H [facility] Rx#: [id number] Intake, IV Titration 78.025 19.232 Amount Insulin Regular 100 unit 28.981 19.232 In Sodium Chloride 0.9% 100 ml @ Per Protocol IV .Q0M [facility] Rx#:[id number] Milrinone-D5w Pmx 20 mg 49.044 In Dextrose/Water 1 100ml .bag @ 0.25 MCG/KG/MIN 5. 443 mls/hr IV .[id number] [facility] Rx#:[id number] Oral 500 Blood Product 0 Rc Pheresis 2 As3 Unit 0 [id number] Output: Chest Tube Drainage 230 260 70 L. plurel 90 100 60 MS 140 160 10 Drainage 15 Left Calf 15 Urine 410 425 210 Other: Voiding Method Indwelling Catheter Indwelling Catheter Indwelling Catheter ABP, PAP, CO, CI - Last Documented Arterial Blood Pressure 201/36 Pulmonary Artery Pressure 52/14 Cardiac Output 4 Cardiac Index 2.2 - Exam No acute distress, oriented 3. Currently on 4 L of oxygen. HEENT examination is grossly unremarkable. Mucous membranes are moist. No oral lesions. Neck supple. Full range of motion. No adenopathy thyromegaly or neck vein distention. Cardiovascular examination reveals regular rhythm rate. S1-S2 normal. No S3 or S4. No discernible murmur noted. Heart rate 75 bpm. Lungs reveal minimal bibasilar crackles. No wheezes or rhonchi. Breath sounds are equal bilaterally. 4 L saturation is 94 %. Abdomen soft bowel sounds are heard. No masses or tenderness. Extremities are intact. No cyanosis clubbing or edema. Skin is without rash or lesion. Neurologic examination is brief but nonfocal. - Labs CBC & Chem 7: 07/29/23 05:00 07/29/23 05:00 Labs: Abnormal Lab Results - Last 24 Hours (Table) 07/26/23 07/28/23 07/28/23 Range/Units 07:32 12:04 13:58 RBC (4.30-5.90) m/uL Hgb (13.0-17.5) gm/dL Hct (39.0-53.0) % RDW (11.5-15.5) % Plt Count (150-450) k/uL Neutrophils # (Manual) (1.3-7.7) k/uL Lymphocytes # (Manual) (1.0-4.8) k/uL Nucleated RBCs (0-0) /100 WBC Sodium (137-145) mmol/L BUN (9-20) mg/dL Glucose (74-99) mg/dL POC Glucose (mg/dL) 151 H 141 H (70-110) mg/dL Calcium (8.4-10.2) mg/dL AST (17-59) U/L Total Protein (6.3-8.2) g/dL Albumin (3.5-5.0) g/dL Crossmatch See Detail 07/28/23 07/28/23 07/28/23 Range/Units 16:03 17:10 17:59 RBC (4.30-5.90) m/uL Hgb (13.0-17.5) gm/dL Hct (39.0-53.0) % RDW (11.5-15.5) % Plt Count (150-450) k/uL Neutrophils # (Manual) (1.3-7.7) k/uL Lymphocytes # (Manual) (1.0-4.8) k/uL Nucleated RBCs (0-0) /100 WBC Sodium (137-145) mmol/L BUN (9-20) mg/dL Glucose (74-99) mg/dL POC Glucose (mg/dL) 141 H 163 H 153 H (70-110) mg/dL Calcium (8.4-10.2) mg/dL AST (17-59) U/L Total Protein (6.3-8.2) g/dL Albumin (3.5-5.0) g/dL Crossmatch 07/28/23 07/28/23 07/28/23 Range/Units 19:08 20:06 22:06 RBC (4.30-5.90) m/uL Hgb (13.0-17.5) gm/dL Hct (39.0-53.0) % RDW (11.5-15.5) % Plt Count (150-450) k/uL Neutrophils # (Manual) (1.3-7.7) k/uL Lymphocytes # (Manual) (1.0-4.8) k/uL Nucleated RBCs (0-0) /100 WBC Sodium (137-145) mmol/L BUN (9-20) mg/dL Glucose (74-99) mg/dL POC Glucose (mg/dL) 140 H 114 H 136 H (70-110) mg/dL Calcium (8.4-10.2) mg/dL AST (17-59) U/L Total Protein (6.3-8.2) g/dL Albumin (3.5-5.0) g/dL Crossmatch 07/29/23 07/29/23 07/29/23 Range/Units 00:38 02:30 04:59 RBC (4.30-5.90) m/uL Hgb (13.0-17.5) gm/dL Hct (39.0-53.0) % RDW (11.5-15.5) % Plt Count (150-450) k/uL Neutrophils # (Manual) (1.3-7.7) k/uL Lymphocytes # (Manual) (1.0-4.8) k/uL Nucleated RBCs (0-0) /100 WBC Sodium (137-145) mmol/L BUN (9-20) mg/dL Glucose (74-99) mg/dL POC Glucose (mg/dL) 136 H 147 H 125 H (70-110) mg/dL Calcium (8.4-10.2) mg/dL AST (17-59) U/L Total Protein (6.3-8.2) g/dL Albumin (3.5-5.0) g/dL Crossmatch 07/29/23 07/29/23 07/29/23 Range/Units 05:00 05:00 06:54 RBC 2.19 L (4.30-5.90) m/uL Hgb 6.9 L* (13.0-17.5) gm/dL Hct 20.4 L (39.0-53.0) % RDW 16.5 H (11.5-15.5) % Plt Count 82 L D (150-450) k/uL Neutrophils # (Manual) 8.19 H (1.3-7.7) k/uL Lymphocytes # (Manual) 0.54 L (1.0-4.8) k/uL Nucleated RBCs 2 H (0-0) /100 WBC Sodium 132 L (137-145) mmol/L BUN 23 H (9-20) mg/dL Glucose 103 H (74-99) mg/dL POC Glucose (mg/dL) 114 H (70-110) mg/dL Calcium 7.8 L (8.4-10.2) mg/dL AST 148 H (17-59) U/L Total Protein 4.8 L (6.3-8.2) g/dL Albumin 2.7 L (3.5-5.0) g/dL Crossmatch 07/29/23 Range/Units 08:55 RBC (4.30-5.90) m/uL Hgb (13.0-17.5) gm/dL Hct (39.0-53.0) % RDW (11.5-15.5) % Plt Count (150-450) k/uL Neutrophils # (Manual) (1.3-7.7) k/uL Lymphocytes # (Manual) (1.0-4.8) k/uL Nucleated RBCs (0-0) /100 WBC Sodium (137-145) mmol/L BUN (9-20) mg/dL Glucose (74-99) mg/dL POC Glucose (mg/dL) (70-110) mg/dL Calcium (8.4-10.2) mg/dL AST (17-59) U/L Total Protein (6.3-8.2) g/dL Albumin (3.5-5.0) g/dL Crossmatch See Detail Assessment and Plan Assessment: Postop day #2, status post three-vessel bypass grafting, mitral valve repair, tr icuspid valve repair, and exclusion of the left atrial appendage. Routine postoperative ventilator management, with extubation, on July 27. Multi-vessel coronary artery disease and severe mitral regurgitation, being considered for open heart surgery with surgical revascularization and mitral valve replacement, however, the patient does want to proceed with this option. Surgery is planned for 07/27/2023. Exertional dyspnea, likely secondary to above. CTA of the chest was completed for PE protocol which demonstrated no diagnostic evidence of pulmonary embolism, COPD like changes, pulmonary fibrosis, trace bilateral pleural effusions, groundglass changes, posssibly mild venous congestion correlate for mild CHF exacerbation. Benign essential hypertension. Hyperlipidemia. Abdominal aortic aneurysm, measuring 3.3 cm incidentally found on chest CTA. GERD. Chronic and ongoing nicotine dependence. Plan: Plan dated 07/26/2023. The patient is advised, about the importance of using the incentive spirometer. We also but the patient know what our role in this, as pulmonary/critical care physician, after open heart surgery. We explained to him, that our first goal is to get him extricated or liberated from mechanical ventilation. Secondly, we work with the patient throughout his hospitalization, to assure that he does not develop pneumonia, pleural effusion, atelectasis, or lobar collapse. We will continue to follow the patient, and make recommendations along the way. Plan dated 07/27/2023. The patient is scheduled to have open-heart surgery today. He was currently on 2 L prior to surgery. Obviously, he will be coming back to the intensive care unit, on the mechanical ventilator. Yesterday, we explained to the patient, that are goal is to get the patient extricated or liberated from mechanical ventilation as soon as possible, and secondly, evaluate the patient's lungs on a daily patient, to prevent, collapse, atelectasis, pleural effusion, or pneumonia. Additional recommendations and suggestions are forthcoming. Plan dated 07/28/2023. The patient is seen in room 266, in the intensive care unit. He sitting in the chair, next to his bed. He is currently on 4 L of oxygen by nasal cannula. He is getting saline at 50 mL an hour, and an insulin drip at 2.5 units an hour. The patient is postop day #1, status post three-vessel bypass grafting, mitral valve repair, tricuspid valve repair, and exclusion of left atrial appendage. Labs, x-rays, and medications are reviewed. We will continue to follow, and make recommendations along the way. Chest x-ray shows primarily postoperative changes. Prognosis is guarded. Plan dated 07/29/2023. The patient is seen today in room 266. He remains on oxygen at 4 L. He is getting saline at 20 mL an hour. It's 0.9, the patient will get 1 unit of packed red blood cells. Labs, x-rays, and medications are all reviewed. The patient appears be doing relatively well. We encourage deep breathing, coughing, and clearing of secretions. We also encouraged him to use the incentive spirometer, every hour. Time with Patient: Greater than 30
[2023-07-29] MEDS: FERROUS SULFATE 325 MG TAB PO SCH (11:21)
[2023-07-29] MEDS: ASCORBIC ACID 500 MG TAB PO SCH (11:21)
[2023-07-29] MEDS ORDERED: LOSARTAN 25 MG TAB PO SCH (13:00)
[2023-07-29] MEDS: DEXTROSE 5% IN WATER 100 ML with AMIODARONE 150 MG IV PRN ×4 (13:20→16:29)
[2023-07-29 14:05] LABS: HGB 8.2 gm/dL (13.0-17.5); MCH 31.4 pg (25.0-35.0); MCHC 34.1 g/dL (31.0-37.0); Mean Platelet Volume 9.9; Poikilocytosis Slight; RBC 2.61 m/uL (4.30-5.90); RDW 15.7 % (11.5-15.5); WBC 9.6 k/uL (3.8-10.6)
[2023-07-29 14:08] LABS: Platelet Count 85 k/uL (150-450)
--- NOTE | 2023-07-29 14:14 | P.PN ---
Subjective Progress Note Date: 07/29/23 This is a 73-year-old male who presented to the emergency department with feeling of chest pain or shortness of breath. Patient reported some pressure and squeezing sensation along with a minimal cough and bloating. Patient reports he follows with Dr. Holloway in the outpatient setting with a past medical history of GERD, hyperlipidemia, hypertension, continues to smoke about 1 pack per day, has an occasional drink although not very often and denies any other illicit drug use. Chest x-ray in the ER shows interstitial infiltrates noted with mid and lower lung zones bilaterally that could reflect edema versus interstitial pneumonia. Patient underwent CTA of the chest showing no diagnostic evidence of PE, COPD with pulmonary fibrosis correlate for mild CHF with a dense coronary artery atherosclerosis noted along with incidental note of abdominal aortic aneurysm partially included measuring approximately 3.3 cm with nonspecific mediastinal and hilar lymphadenopathy. There is a prominent pulm onary artery that can be associated with pulmonary artery hypertension. 2-D echo was ordered and pending and was patient was admitted for chest pain for cardiology evaluation. Patient started on heparin as troponins was 0.031 and trending up at 0.043. Virology testing including influenza, RSV, and CoVid were all negative. WBC revealed a 10.8, hemoglobin 15.8, platelets 298, INR 1.0, sodium was 139 with a potassium of 3.9, BUN was 14 with creatinine of 0.86, total bili is 0.6, LFTs within normal limits, BNP was 546. Patient is currently maintained on 2 L of oxygen via nasal cannula for shortness of breath and oxygen saturations are 95-98% and patient reports he does not wear oxygen outpatient. Patient has been counseled extensively on complete tobacco cessation. 07/21/2023 Patient is seen and evaluated in follow-up with cardiology following along with CT surgery which has been consulted. Patient underwent cardiac catheterization showing triple-vessel heart disease and cardiothoracic has been consulted to discuss possible surgical intervention. Initiation of preoperative clearance has been ongoing and patient was scheduled to undergo NICOLAS today. Patient continues on 2 L via nasal cannula and reports his shortness of breath is improved and keeps asking if he could go home. Awaiting further evaluation from CT surgery and will discuss further with them about this. Family at the bedside with multiple questions and concerns were answered to the best of our ability. Patient's at bedside reports he smokes at least 2 packs a day of cigarettes and he mentioned only 1 pack per day and also drinks coffee from the time he wakes up until the time he goes to bed all day. Patient is afebrile denies chest pain or palpitations. No worsening shortness of breath noted. Patient was nothing by mouth for NICOLAS and diet resumed after procedure and tolerating with no reports of nausea or vomiting. Pro-calcitonin was normal and will discontinue empiric antibiotics. 07/22/2023 Patient is seen in follow-up today undergoing continued surgical work up for severe triple vessel disease. Patient continues to report he feels well and would like to go home prior to surgery. Patient is still requiring 2 liters via NC of . Multiple medical consultations following. Tentative surgery on Tuesday. Per cardiology, no plans for discharge prior to surgery at this time. Smoking cessation reinforced and patient remains on nicotine patch. Patient is afebrile and denies any chest pain or shortness of breath. Tolerating diet with no reported nausea or vomiting. 07/23/2023 Patient is currently lying in bed. Awake alert and oriented x3. Able to ambulate in the room. No complaints of chest pain or shortness of breath. No nausea vomiting abdominal pain or diarrhea. Saturating at 97% on room air. Patient has been afebrile. No cough or sputum production. Laboratory data showed sodium 135 potassium 3.7 chloride 100 bicarb is 27 BUN 2020 creatinine 0.9 and blood sugars 150. Patient is being continued on aspirin and statin, metoprolol and Aldactone. Cardiology and CT surgery is on board. Patient is scheduled for coronary artery bypass graft on 07/27/2023. 07/24/2023 Patient is currently in the telemetry unit. No complaints of chest pain or shortness of breath. No nausea vomiting abdominal pain or diarrhea. Able to ambulate in the room. Currently on oxygen at 2 L via nasal cannula and saturating at 100%. Patient has been afebrile. No acute overnight issues. P atient is using incentive spirometry. Scheduled for coronary revascularization surgery on 07/27/2023. Cardiology, pulmonary and CT surgery is on board. 07/25/2023 Patient is seen in follow-up this morning continued on 2 L via nasal cannula with good oxygen saturations and takes off frequently. Patient has been up walking around and labs within normal limits. Patient is using incentive spirometer as instructed and following heart healthy diet. Planning on CABG with valve repair or replacement on Tuesday with cardiothoracic surgery. Patient is currently afebrile with no reports of chest pain or worsening shortness of breath. Patient is tolerating diet and denies nausea or vomiting. 07/26/2023 Patient seen and evaluated in follow-up today and was told by manager night that patient was sleeping sitting at the side of the bed and fell forward striking his nasal bone and head on the table. Maxillofacial CT was done showing concern for minimal nasal bone fracture. CT brain ordered without contrast as patient will be undergoing extensive CABG surgery in the a.m. and maintained on high intensity heparin throughout. This was discussed and relayed to cardiothoracic surgery and following protocol. Patient continues to require 2-3 L via nasal cannula otherwise denies worsening shortness of breath or chest pain. Patient denies having dizziness or lightheadedness or passing out at the time of this fall. No reports of nausea or vomiting noted and patient will be nothing by mouth at midnight. 07/28/2023 Patient is seen and evaluated in follow-up today currently in the ICU with multiple medical consultations following. Patient is status post triple-vessel coronary artery bypass grafting with complex mitral valve repair. Patient continues with multiple chest tubes and [place] catheter indwelling [place] catheter. Patient not requiring pressor support at this time is currently sitting up in the chair. Patient does have heart hugger noted. Patient also continues with insulin drip with blood sugars well controlled and we'll transition to sliding scale and long-acting as needed possibly in 24 hours. Patient is afebrile reports some chest wall discomfort although reports to feeling well. Chest x- ray today shows residual mild pulmonary vascular congestion with some i mprovement on the right. Hemoglobin 7.2 and has received 2 units of PRBCs yesterday. Will follow-up with repeat chest x-ray and labs in the a.m. 07/29/2023 Patient is seen in follow-up today continues to be in the ICU currently sitting up in the chair. Patient reports feeling fatigued today and not getting much sleep. Hemoglobin was found to be 6.9 and awaiting receive a unit of PRBC. Patient to be transitioned off insulin drip and will start with sliding scale with Accu-Cheks before meals and at bedtime and add long-acting if needed for tight glycemic control. Patient is afebrile with no increasing shortness of breath noted. Patient is maintained on 3 L via nasal cannula maintaining oxygen saturations above 90%. Chest x-ray today shows right lung airspace opacification is concerning for developing pneumonia with stable left lower lung airspace opacification. Patient to continue with incentive spirometer at least 10 times every hour while awake. Patient is tolerating diet although not much of an appetite right now and reports to being fatigued. Will continue heart healthy diabetic diet. Review of systems: Constitutional: reports of fatigue, nofever, or chills, reports lack of sleep and increased anxiety Cardiovascular: No reports of chest pain or palpitations, reports chest wall discomfort Respiratory: No reports of worsening shortness of breath or cough GI: No reports of nausea, vomiting, or diarrhea : No reports of dysuria or retention Neurovascular: reports of generalized weakness All medications have been reviewed Active Medications Acetaminophen (Acetaminophen Tab 325 Mg Tab) 650 mg PO Q4HR PRN PRN Reason: Fever and/ or Mild Pain Last Admin: 07/28/23 19:59 Dose: 650 mg Hydrocodone Bitart/Acetaminophen (Hydrocodone/Apap 5-325mg 1 Each Tab) 1 each PO Q4HR PRN PRN Reason: Moderate Pain (Scale 4 to 6) Last Admin: 07/29/23 10:06 Dose: 1 each Hydrocodone Bitart/Acetaminophen (Hydrocodone/Apap 10-325mg 1 Each Tab) 1 each PO Q4HR PRN PRN Reason: Severe Pain (Scale 7 to 10) Last Admin: 07/29/23 05:45 Dose: 1 each Albuterol/Ipratropium (Ipratropium-Albuterol 3 Ml Neb) 3 ml INHALATION RT-Q2H PRN PRN Reason: Shortness Of Breath Or Wheezing Albuterol/Ipratropium (Ipratropium-Albuterol 3 Ml Neb) 3 ml INHALATION RT-QID ANCA Last Admin: 07/29/23 11:21 Dose: 3 ml Alprazolam (Alprazolam 0.25 Mg Tab) 0.25 mg PO TID PRN PRN Reason: Anxiety Last Admin: 07/29/23 05:00 Dose: 0.25 mg Ascorbic Acid (Ascorbic Acid 500 Mg Tab) 500 mg PO 1200 ANCA Last Admin: 07/29/23 11:21 Dose: 500 mg Aspirin (Aspirin 81 Mg) 81 mg PO DAILY [facility] Last Admin: 07/29/23 08:46 Dose: 81 mg Atorvastatin Calcium (Atorvastatin 40 Mg Tab) 40 mg PO HS [facility] Last Admin: 07/28/23 20:00 Dose: 40 mg Benzocaine/Menthol (Benzocaine/Menthol Lozeng 1 Each Lozenge) 1 each MUCOUS MEM Q2H PRN PRN Reason: Sore Throat Last Admin: 07/28/23 14:20 Dose: 1 each Bisacodyl (Bisacodyl 10 Mg Supp) 10 mg RECTAL DAILY PRN PRN Reason: Constipation Cholecalciferol (Cholecalciferol 25 Mcg (1000 Iu) Tablet) 50 mcg PO DAILY [facility] Last Admin: 07/29/23 08:47 Dose: 50 mcg Citalopram Hydrobromide (Citalopram Hydrobromide 20 Mg Tab) 20 mg PO DAILY [facility] Last Admin: 07/29/23 08:47 Dose: 20 mg Clopidogrel Bisulfate (Clopidogrel 75 Mg Tab) 75 mg PO DAILY [facility] Last Admin: 07/29/23 08:47 Dose: 75 mg Dextrose/Water (Dextrose 50% Syringe 50 Ml) 25 ml IVP PER PROTOCOL PRN; Protocol PRN Reason: Hypoglycemia Dextrose/Water (Dextrose 50% Syringe 50 Ml) 50 ml IVP PER PROTOCOL PRN; Protocol PRN Reason: Hypoglycemia Ferrous Sulfate (Ferrous Sulfate 325 Mg Tab) 325 mg PO W/LUNCH [facility] Last Admin: 07/29/23 11:21 Dose: 325 mg Fondaparinux (Fondaparinux 2.5 Mg/0.5 Ml Syringe) 2.5 mg SQ DAILY [facility] Last Admin: 07/29/23 08:47 Dose: 2.5 mg Amiodarone HCl 150 mg/ (Dextrose/Water) 103 mls @ 618 mls/hr IV .Q10M PRN; Protocol PRN Reason: A.FIB/FLUTTER Last Admin: 07/29/23 14:06 Dose: 618 mls/hr Amiodarone HCl 360 mg/ (Dextrose/Water) 207.2 mls @ 34.533 mls/hr IV .Q6H PRN; Protocol PRN Reason: A.FIB/FLUTTER Amiodarone HCl 450 mg/ (Dextrose/Water) 250 mls @ 16.667 mls/hr IV .Q15H PRN; Protocol PRN Reason: A.FIB/FLUTTER Albumin Human 250 ml/ IV (Solution) 250 mls @ 250 mls/hr IVPB Q1HR PRN; Protocol PRN Reason: For Volume Stop: 07/29/23 15:46 Last Admin: 07/27/23 20:37 Dose: 250 mls/hr Sodium Chloride (Saline 0.9%) 1,000 mls @ 20 mls/hr IV .Q24H [facility] Last Admin: 07/28/23 20:00 Dose: 20 mls/hr Insulin Aspart (Insulin Aspart (Novolog) 100 Unit/Ml Vial) 0 unit SQ [facility]; Protocol Last Admin: 07/29/23 11:23 Dose: 2 unit Losartan Potassium (Losartan 25 Mg Tab) 12.5 mg PO DAILY [facility] Last Admin: 07/29/23 13:30 Dose: 12.5 mg Magnesium Hydroxide (Magnesium Hydroxide 2,400 Mg/30 Ml Cup) 2,400 mg PO BID PRN PRN Reason: Constipation Melatonin (Melatonin 3 Mg Tablet) 6 mg PO HS PRN PRN Reason: Insomnia Last Admin: 07/25/23 20:35 Dose: 6 mg Metoclopramide HCl (Metoclopramide 5 Mg/Ml 2 Ml Vial) 10 mg IVP Q4H PRN PRN Reason: Nausea And Vomiting Metoprolol Tartrate (Metoprolol Tartrate 12.5 Mg Tab) 12.5 mg PO BID [facility] Last Admin: 07/29/23 08:47 Dose: 12.5 mg Miscellaneous Information (Potassium Replacement Protocol 1 Each Misc) 1 each MISCELLANE DAILY PRN; Protocol PRN Reason: Per Protocol Miscellaneous Information (Magnesium Replacement Protocol 1 Each Misc) 1 each MISCELLANE DAILY PRN; Protocol PRN Reason: Per Protocol Nicotine (Nicotine 21mg/24hr Patch) 1 patch TRANSDERM DAILY [facility] Last Admin: 07/29/23 08:48 Dose: 1 patch Ondansetron HCl (Ondansetron 4 Mg/2 Ml Vial) 4 mg IVP Q6HR PRN PRN Reason: Nausea And Vomiting Pantoprazole Sodium (Pantoprazole 40 Mg Tablet) 40 mg PO AC-BRKFST [facility] Last Admin: 07/29/23 06:56 Dose: 40 mg Senna/Docusate Sodium (Sennosides-Docusate Sodium 1 Each Tab) 2 each PO HS [facility] Last Admin: 07/28/23 19:59 Dose: 2 each Sodium Chloride (Sodium Chloride 0.9% Flush 10 Ml Syringe) 10 ml IV BID [facility] Last Admin: 07/29/23 08:48 Dose: 10 ml PHYSICAL EXAMINATION: GENERAL: The patient is alert and oriented x4, Well developed, well nourished. HEENT: Pupils are round and equally reacting to light. EOMI. no scleral icterus. No conjunctival pallor. Normocephalic, atraumatic. No pharyngeal erythema. No th yromegaly. No facial deformity noted on exam CARDIOVASCULAR: S1 and S2 muffled PULMONARY: diminished breath sounds bilaterally with no wheezing or rhonchi noted. ABDOMEN: soft. Nontender on exam. obese. non-distended, normoactive bowel sounds. No palpable organomegaly. MUSCULOSKELETAL: No joint swelling or deformity. EXTREMITIES: No cyanosis, clubbing, or pedal edema. NEUROLOGICAL: Gross neurological examination did not reveal any focal deficits. Diffusely weak SKIN: No rashes. Assessment: Chest pain status post cardiac catheterization found to have severe triple- vessel disease status post three-vessel CABG with complex mitral valve repair Acute hypoxic respiratory failure, secondary to severe triple vessel disease Acute blood loss anemia and thrombocytopenia expected post surgery, hemoglobin was 6.9 today Fall with a subtle deformity to the nasal bone for possible point tenderness fracture, no loss of consciousness, no acute intracranial process noted on CT of the brain Mild troponin elevation, most likely NSTEMI Mild leukocytosis, possibly reactive, resolved COPD, not in exacerbation Coronary artery atherosclerosis noted on CTA 3.3 cm abdominal aortic aneurysm noted on CTA Aortic valve murmur consistent with aortic stenosis, moderate History of GERD Hyperlipidemia history Hypertension history Continued ongoing nicotine dependence, smokes about 2 packs per day Excessive caffeine intake daily GI prophylaxis DVT prophylaxis Full code Plan: Patient is continued in the ICU with multiple medical consultations following as patient was found to have severe triple-vessel disease and is status post three-vessel CABG with complex mitral valve repair Continue on supplemental oxygen and wean as tolerated. Encourage incentive spirometer use at least 10 times every hour while awake Continue GI and DVT prophylaxis . Patient's hemoglobin was found to be 6.9 and units of blood ordered and will follow-up with repeat labs this evening Patient has been transitioned to sliding scale with Accu-Cheks before meals and at bedtime and will add long-acting as needed if blood sugars start to elevate. Encouraged increased activity as tolerated with cardiac rehab following Continue telemetry monitoring Complete tobacco cessation and excessive caffeine use has been discussed extensively Overall prognosis is guarded at this time. We will continue to follow during hospitalization. The impression and plan of care has been dictated by Delia Oakes, nurse practitioner as directed. Dr. Matthew MD I have performed a history and examination and MDM of this patient, discussed the same with the dictator, and agree with the dictator's assessment and plan as written ,documented as a scribe. Based on total visit time, I have performed more than 50% of the visit. Any additional findings or plans will be noted. Objective - Vital Signs Vital signs: Vital Signs Temp 98.8 F 07/29/23 12:00 Pulse 90 07/29/23 13:00 Resp 28 H 07/29/23 13:00 BP 139/64 07/29/23 13:00 Pulse Ox 94 L 07/29/23 13:00 FiO2 50 07/27/23 22:02 Intake & Output 07/28/23 07/29/23 07/29/23 18:59 06:59 18:59 Intake Total 1199.025 451.232 709 Output Total 655 685 665 Balance 544.025 -233.768 44 Weight 77.1 kg 77.1 kg Intake: IV 621 432 202 CI/CO 20 Calcium Gluconate in NaCl 100 2 gm In Saline 1 100ml. bag @ 100 mls/hr IVPB ONCE ONE Rx#:[id number] Pressure bags (0.9 Sodium 81 72 42 Chloride) Sodium Chloride 0.9% 1, 370 360 160 000 ml @ 20 mls/hr IV . Q24H ANCA Rx#:[id number] ceFAZolin 2 gm In Sodium 50 Chloride 0.9% 50 ml @ 100 mls/hr IVPB Q8H ANCA Rx#: [id number] Intake, IV Titration 78.025 19.232 Amount Insulin Regular 100 unit 28.981 19.232 In Sodium Chloride 0.9% 100 ml @ Per Protocol IV .Q0M ANCA Rx#:[id number] Milrinone-D5w Pmx 20 mg 49.044 In Dextrose/Water 1 100ml .bag @ 0.25 MCG/KG/MIN 5. 443 mls/hr IV .[id number] [facility] Rx#:[id number] Oral 500 250 Blood Product 257 Rc Pheresis 2 As3 Unit 257 [id number] Output: Chest Tube Drainage 230 260 100 L. plurel 90 100 90 MS 140 160 10 Drainage 15 Left Calf 15 Urine 410 425 565 Other: Voiding Method Indwelling Catheter Indwelling Catheter Indwelling Catheter ABP, PAP, CO, CI - Last Documented Arterial Blood Pressure 217/65 Pulmonary Artery Pressure 52/14 Cardiac Output 4 Cardiac Index 2.2 - Labs CBC & Chem 7: 07/29/23 05:00 07/29/23 05:00 Labs: Abnormal Lab Results - Last 24 Hours (Table) 07/26/23 07/28/23 07/28/23 Range/Units 07:32 13:58 16:03 RBC (4.30-5.90) m/uL Hgb (13.0-17.5) gm/dL Hct (39.0-53.0) % RDW (11.5-15.5) % Plt Count (150-450) k/uL Neutrophils # (Manual) (1.3-7.7) k/uL Lymphocytes # (Manual) (1.0-4.8) k/uL Nucleated RBCs (0-0) /100 WBC Sodium (137-145) mmol/L BUN (9-20) mg/dL Glucose (74-99) mg/dL POC Glucose (mg/dL) 141 H 141 H (70-110) mg/dL Calcium (8.4-10.2) mg/dL AST (17-59) U/L Total Protein (6.3-8.2) g/dL Albumin (3.5-5.0) g/dL Crossmatch See Detail 07/28/23 07/28/23 07/28/23 Range/Units 17:10 17:59 19:08 RBC (4.30-5.90) m/uL Hgb (13.0-17.5) gm/dL Hct (39.0-53.0) % RDW (11.5-15.5) % Plt Count (150-450) k/uL Neutrophils # (Manual) (1.3-7.7) k/uL Lymphocytes # (Manual) (1.0-4.8) k/uL Nucleated RBCs (0-0) /100 WBC Sodium (137-145) mmol/L BUN (9-20) mg/dL Glucose (74-99) mg/dL POC Glucose (mg/dL) 163 H 153 H 140 H (70-110) mg/dL Calcium (8.4-10.2) mg/dL AST (17-59) U/L Total Protein (6.3-8.2) g/dL Albumin (3.5-5.0) g/dL Crossmatch 07/28/23 07/28/23 07/29/23 Range/Units 20:06 22:06 00:38 RBC (4.30-5.90) m/uL Hgb (13.0-17.5) gm/dL Hct (39.0-53.0) % RDW (11.5-15.5) % Plt Count (150-450) k/uL Neutrophils # (Manual) (1.3-7.7) k/uL Lymphocytes # (Manual) (1.0-4.8) k/uL Nucleated RBCs (0-0) /100 WBC Sodium (137-145) mmol/L BUN (9-20) mg/dL Glucose (74-99) mg/dL POC Glucose (mg/dL) 114 H 136 H 136 H (70-110) mg/dL Calcium (8.4-10.2) mg/dL AST (17-59) U/L Total Protein (6.3-8.2) g/dL Albumin (3.5-5.0) g/dL Crossmatch 07/29/23 07/29/23 07/29/23 Range/Units 02:30 04:59 05:00 RBC 2.19 L (4.30-5.90) m/uL Hgb 6.9 L* (13.0-17.5) gm/dL Hct 20.4 L (39.0-53.0) % RDW 16.5 H (11.5-15.5) % Plt Count 82 L D (150-450) k/uL Neutrophils # (Manual) 8.19 H (1.3-7.7) k/uL Lymphocytes # (Manual) 0.54 L (1.0-4.8) k/uL Nucleated RBCs 2 H (0-0) /100 WBC Sodium (137-145) mmol/L BUN (9-20) mg/dL Glucose (74-99) mg/dL POC Glucose (mg/dL) 147 H 125 H (70-110) mg/dL Calcium (8.4-10.2) mg/dL AST (17-59) U/L Total Protein (6.3-8.2) g/dL Albumin (3.5-5.0) g/dL Crossmatch 07/29/23 07/29/23 07/29/23 Range/Units 05:00 06:54 08:55 RBC (4.30-5.90) m/uL Hgb (13.0-17.5) gm/dL Hct (39.0-53.0) % RDW (11.5-15.5) % Plt Count (150-450) k/uL Neutrophils # (Manual) (1.3-7.7) k/uL Lymphocytes # (Manual) (1.0-4.8) k/uL Nucleated RBCs (0-0) /100 WBC Sodium 132 L (137-145) mmol/L BUN 23 H (9-20) mg/dL Glucose 103 H (74-99) mg/dL POC Glucose (mg/dL) 114 H (70-110) mg/dL Calcium 7.8 L (8.4-10.2) mg/dL AST 148 H (17-59) U/L Total Protein 4.8 L (6.3-8.2) g/dL Albumin 2.7 L (3.5-5.0) g/dL Crossmatch See Detail 07/29/23 Range/Units 11:10 RBC (4.30-5.90) m/uL Hgb (13.0-17.5) gm/dL Hct (39.0-53.0) % RDW (11.5-15.5) % Plt Count (150-450) k/uL Neutrophils # (Manual) (1.3-7.7) k/uL Lymphocytes # (Manual) (1.0-4.8) k/uL Nucleated RBCs (0-0) /100 WBC Sodium (137-145) mmol/L BUN (9-20) mg/dL Glucose (74-99) mg/dL POC Glucose (mg/dL) 164 H (70-110) mg/dL Calcium (8.4-10.2) mg/dL AST (17-59) U/L Total Protein (6.3-8.2) g/dL Albumin (3.5-5.0) g/dL Crossmatch
[2023-07-29 16:58] LABS: Glucose,Whole Blood 263 mg/dL (70-110)
[2023-07-29 16:58] LABS: Glucose,Whole Blood 259 mg/dL (70-110)
[2023-07-29] MEDS: BENZOCAINE/MENTHOL LOZENG 1 EACH LOZENGE MUCOUS MEM PRN (17:01)
[2023-07-29 20:04] LABS: Glucose,Whole Blood 191 mg/dL (70-110)
[2023-07-29] MEDS: ATORVASTATIN 40 MG TAB PO SCH (20:57)
[2023-07-29] MEDS: SENNOSIDES-DOCUSATE SODIUM 1 EACH TAB PO SCH (20:58)
[2023-07-29] MEDS: SODIUM CHLORIDE 0.9% 1,000 ML IV SCH (22:58)
[2023-07-30 05:37] LABS: Ionized Calcium 4.5 mg/dL (4.5-5.3)
[2023-07-30 05:46] LABS: Basophils % (A) 0 %; Eosinophils % (A) 0 %; HCT 22.1 % (39.0-53.0); HGB 7.7 gm/dL (13.0-17.5); Lymphocytes # (A) 0.4 k/uL (1.0-4.8); Lymphocytes % (A) 4 %; MCHC 34.7 g/dL (31.0-37.0); MCV 92.2 fL (80.0-100.0); Magnesium 2.2 mg/dL (1.6-2.3); Mean Platelet Volume 9.9; Monocytes # (A) 0.3 k/uL (0-1.0); Monocytes % (A) 4 %; Neutrophils # (A) 7.3 k/uL (1.3-7.7); Neutrophils % (A) 90 %; Platelet Count 92 k/uL (150-450); Poikilocytosis Slight; RDW 15.9 % (11.5-15.5); WBC 8.1 k/uL (3.8-10.6)
[2023-07-30 05:47] LABS: ALT 79 U/L (4-49); AST 248 U/L (17-59); African American GFR (CKD) >90 (>60 ml/min/1.73 sqM); Albumin 2.6 g/dL (3.5-5.0); Alkaline Phosphatase 56 U/L (38-126); Anion Gap 2 mmol/L; Blood Urea Nitrogen 24 mg/dL (9-20); Calcium 7.8 mg/dL (8.4-10.2); Carbon Dioxide 26 mmol/L (22-30); Chloride 102 mmol/L (98-107); Glucose 120 mg/dL (74-99); Non-African American GFR(CKD) >90 (>60 ml/min/1.73 sqM); Potassium 4.5 mmol/L (3.5-5.1); Sodium 130 mmol/L (137-145); Total Bilirubin 1.2 mg/dL (0.2-1.3); Total Protein 4.7 g/dL (6.3-8.2)
[2023-07-30 06:41] LABS: Glucose,Whole Blood 126 mg/dL (70-110)
[2023-07-30] MEDS: INSULIN ASPART (NovoLOG) 100 UNIT/ML VIAL SQ SCH ×4 (06:49→20:03)
[2023-07-30] MEDS: PANTOPRAZOLE 40 MG TABLET PO SCH (06:52)
[2023-07-30] MEDS ORDERED: FUROSEMIDE 10 MG/ML 2 ML VIAL IV ONE (08:30)
[2023-07-30] MEDS: IPRATROPIUM-ALBUTEROL 3 ML NEB INHALATION SCH ×4 (08:35→20:09)
[2023-07-30] MEDS: ALPRAZolam 0.25 MG TAB PO PRN ×2 (08:44→22:09)
[2023-07-30] MEDS: HYDROcodone/APAP 5-325MG 1 EACH TAB PO PRN ×3 (08:44→22:27)
[2023-07-30] MEDS: CITALOPRAM HYDROBROMIDE 20 MG TAB PO SCH (08:44)
[2023-07-30] MEDS: ASPIRIN 81 MG PO SCH (08:44)
[2023-07-30] MEDS: METOPROLOL TARTRATE 12.5 MG TAB PO SCH ×2 (08:44→20:06)
[2023-07-30] MEDS: AMIODARONE 200 MG TAB PO SCH ×2 (08:45→20:06)
[2023-07-30] MEDS: CLOPIDOGREL 75 MG TAB PO SCH (08:45)
[2023-07-30] MEDS: CHOLECALCIFEROL 25 MCG (1000 IU) TABLET PO SCH (08:46)
[2023-07-30] MEDS: FONDAPARINUX 2.5 MG/0.5 ML SYRINGE SQ SCH (08:46)
--- NOTE | 2023-07-30 08:55 | P.PN ---
Subjective Progress Note Date: 07/30/23 Principal diagnosis: Severe diffuse calcific triple-vessel coronary artery disease with chronically occluded RCA and first OM, unstable angina, severe mitral valve regurgitation wi th prolapse of P2 with ruptured chord, moderate tricuspid valve regurgitation with severe pulmonary hypertension. History of hypertension, hyperlipidemia, abdominal aortic aneurysm with calcification of the posterior aspect of the ascending aorta, chronic ongoing tobacco dependence, moderate restrictive lung disease, GERD, depression POD #3 triple-vessel coronary artery bypass grafting using the left internal mammary artery to the left anterior descending artery, reverse saphenous vein graft from the aorta to the first obtuse marginal artery, reverse saphenous vein graft from the aorta to the posterior descending artery, complex mitral valve repair with construction of two pairs of NeoChords to P2 and posterior ring annuloplasty using a 34 mm AnnuloFlex ring, tricuspid valve repair using a 28 mm MC3 ring, exclusion of the left atrial appendage using a 40 mm AtriClip, endoscopic harvesting of the left greater saphenous vein, intraoperative graft flow measurements using the [employer] system, intraoperative transesophageal echocardiogram and epiaortic scanning Postoperative acute blood loss anemia and thrombocytopenia, expected given hemodilution and cardiopulmonary bypass pump Paroxysmal atrial fibrillation, known common occurrence after open heart surgery, not a complication, currently in sinus The patient was seen and examined this morning sitting up in a recliner in no ac kanika distress although he continues to appear anxious at times. Currently in sinus rhythm, hemodynamically stable on no pressors although cuff pressure and arterial pressure monitoring not correlating, arterial pressure has been all over the place, cuff pressure has been consistent. Patient did have a few hours of atrial fibrillation yesterday, responsive to amiodarone. Patient does complain of some post surgical pain, denies shortness of breath. Chest x-ray, labs reviewed. Currently on 3 L nasal cannula with oxygen saturation in the mid 90s, able to achieve 750 mL on his incentive spirometry. Right internal jugular cordis, right radial arterial line, left pleural chest tubes all present. Patient ambulated in the hallway yesterday with assist. No other new concerns. Objective - Vital Signs Vital signs: Vital Signs Temp 98.2 F 07/30/23 08:00 Pulse 65 07/30/23 08:42 Resp 35 H 07/30/23 08:00 BP 155/58 07/30/23 08:00 Pulse Ox 93 L 07/30/23 08:43 FiO2 50 09/06/23 22:02 Intake & Output 07/29/23 07/30/23 07/30/23 18:59 06:59 18:59 Intake Total 1209 812 52 Output Total 1165 480 59 Balance 44 332 -7 Weight 77.1 kg 77.6 kg Intake: IV 332 312 52 Pressure bags (0.9 Sodium 72 72 12 Chloride) Sodium Chloride 0.9% 1, 260 240 40 000 ml @ 20 mls/hr IV . Q24H [facility] Rx#:[id number] Oral 500 500 Tube Feeding 120 Blood Product 257 Rc Pheresis 2 As3 Unit 257 [id number] Output: Chest Tube Drainage 170 140 0 L. plurel 160 140 0 MS 10 Urine 995 340 59 Other: Voiding Method Indwelling Catheter Indwelling Catheter ABP, PAP, CO, CI - Last Documented Arterial Blood Pressure 140/42 Pulmonary Artery Pressure 52/14 Cardiac Output 4 Cardiac Index 2.2 - Exam CONSTITUTIONAL: Cooperative, no acute distress RESPIRATORY: Lungs sounds diminished bilaterally. Respirations even, nonlabored. Currently on 3 L nasal cannula with oxygen saturation 95%. Able to achieve 750 mL on incentive spirometry. Strong loose cough. CARDIOVASCULAR: S1, S2 present. Regular rate and rhythm, sinus rhythm on tele metry. Sternum stable. Palpable peripheral pulses bilaterally. No edema present. No calf pain or tenderness noted. Heart hugger in place with patient demonstrating appropriate use. Antiembolism stockings, SCDs present. GASTROINTESTINAL: Abdomen soft, nontender, nondistended. Active bowel sounds present 4 quadrants. Tolerating diet. Positive flatus, no bowel movement since before surgery GENITOURINARY: Irizarry present draining clear, yellow urine. Output overnight 15-40 mL per hour, 1335 mL the last 24 hours INTEGUMENTARY: Skin is warm and dry with evidence of good perfusion. Anterior chest incision well approximated and covered with dry intact dressing. Left lower extremity EVH site well approximated NEUROLOGIC: Cranial nerves II through XII intact MUSKULOSKELETAL: Able to move all extremities, strength equal bilaterally, gait normal PSYCHIATRIC: Alert and oriented to person place and time, intact judgment and insight INVASIVE LINES AND TUBES: Left pleural chest tube present and connected to wall suction, no air leak present. Left pleural chest tube with 100 mL serosanguineous drainage overnight, 300 mL in the last 24 hours. A/V epicardial pacemaker wires present, connected to generator, AAI mode with backup rate 60 bpm. Right internal jugular cordis, right radial arterial line present. Last CVP 8-11. - Allied health notes Allied health notes reviewed: nursing - Labs CBC & Chem 7: 07/30/23 05:18 07/30/23 05:18 Labs: Abnormal Lab Results - Last 24 Hours (Table) 07/26/23 07/29/23 07/29/23 Range/Units 07:32 08:55 11:10 RBC (4.30-5.90) m/uL Hgb (13.0-17.5) gm/dL Hct (39.0-53.0) % RDW (11.5-15.5) % Plt Count (150-450) k/uL Lymphocytes # (1.0-4.8) k/uL Sodium (137-145) mmol/L BUN (9-20) mg/dL Glucose (74-99) mg/dL POC Glucose (mg/dL) 164 H (70-110) mg/dL Calcium (8.4-10.2) mg/dL AST (17-59) U/L ALT (4-49) U/L Total Protein (6.3-8.2) g/dL Albumin (3.5-5.0) g/dL Crossmatch See Detail See Detail 07/29/23 07/29/23 07/29/23 Range/Units 13:55 16:55 16:57 RBC 2.61 L (4.30-5.90) m/uL Hgb 8.2 L (13.0-17.5) gm/dL Hct 24.0 L (39.0-53.0) % RDW 15.7 H (11.5-15.5) % Plt Count 85 L (150-450) k/uL Lymphocytes # (1.0-4.8) k/uL Sodium (137-145) mmol/L BUN (9-20) mg/dL Glucose (74-99) mg/dL POC Glucose (mg/dL) 263 H 259 H (70-110) mg/dL Calcium (8.4-10.2) mg/dL AST (17-59) U/L ALT (4-49) U/L Total Protein (6.3-8.2) g/dL Albumin (3.5-5.0) g/dL Crossmatch 07/29/23 07/30/23 07/30/23 Range/Units 20:02 05:18 05:18 RBC 2.40 L (4.30-5.90) m/uL Hgb 7.7 L (13.0-17.5) gm/dL Hct 22.1 L (39.0-53.0) % RDW 15.9 H (11.5-15.5) % Plt Count 92 L (150-450) k/uL Lymphocytes # 0.4 L (1.0-4.8) k/uL Sodium 130 L (137-145) mmol/L BUN 24 H (9-20) mg/dL Glucose 120 H (74-99) mg/dL POC Glucose (mg/dL) 191 H (70-110) mg/dL Calcium 7.8 L (8.4-10.2) mg/dL AST 248 H (17-59) U/L ALT 79 H (4-49) U/L Total Protein 4.7 L (6.3-8.2) g/dL Albumin 2.6 L (3.5-5.0) g/dL Crossmatch 07/30/23 Range/Units 06:39 RBC (4.30-5.90) m/uL Hgb (13.0-17.5) gm/dL Hct (39.0-53.0) % RDW (11.5-15.5) % Plt Count (150-450) k/uL Lymphocytes # (1.0-4.8) k/uL Sodium (137-145) mmol/L BUN (9-20) mg/dL Glucose (74-99) mg/dL POC Glucose (mg/dL) 126 H (70-110) mg/dL Calcium (8.4-10.2) mg/dL AST (17-59) U/L ALT (4-49) U/L Total Protein (6.3-8.2) g/dL Albumin (3.5-5.0) g/dL Crossmatch Microbiology - Last 24 Hours (Table) 07/28/23 10:55 Gram Stain - Preliminary Pericardial Fluid Tissue Culture - Preliminary - Imaging and Cardiology Chest x-ray: image reviewed Assessment and Plan Assessment: Severe diffuse calcific triple-vessel coronary artery disease with chronically occluded RCA and first OM, unstable angina, status post 3V CABG Severe mitral valve regurgitation with prolapse of P2 with ruptured chord, s tatus post complex mitral valve repair Moderate tricuspid valve regurgitation with severe pulmonary hypertension, status post tricuspid valve repair History of hypertension Hyperlipidemia, treated, cholesterol 121, LDL 60.5treated Abdominal aortic aneurysm with calcification of the posterior aspect of the ascending aorta Chronic ongoing tobacco dependence Moderate restrictive lung disease, preoperative FEV1 54% of predicted GERD Depression Postoperative acute blood loss anemia and thrombocytopenia, expected Paroxysmal atrial fibrillation, currently sinus Plan: Continue to optimize medical management with low dose aspirin, plavix, statin and beta yamile. Will increase beta yamile as able. ARB started yesterday for afterload reductio, increased today Continue amiodarone, will transition to oral. No anticoagulation necessary unless in atrial fibrillation greater than 24 hours Wean oxygen as tolerated. Encourage incentive spirometry 10 x every hour while awake. Bronchodilators per pulmonology Increase activity as tolerated. PT/OT/cardiac rehab consulted Will monitor daily labs and CXR. Electrolyte replacement per protocol. HIT panel pending. Will give IV Lasix GI/DVT prophylaxis Pain control with current medication regimen Insulin management per internal medicine, patient is not diabetic with preoperative HgbA1c 5.8%, but needs tight blood sugar control to prevent infection Will discontinue left pleural chest tube Continue irizarry catheter for another 24 hours Continue to record strict accurate I/Os Daily weights Dulcolax suppository daily until bowel movement Smoking cessation counseling and education provided More recommendations to follow based on patient's progress
[2023-07-30] MEDS ORDERED: LOSARTAN 25 MG TAB PO SCH (09:00)
[2023-07-30] MEDS ORDERED: bisacodyL 10 MG SUPP RECTAL SCH (09:00)
--- NOTE | 2023-07-30 11:03 | P.PN ---
Subjective Progress Note Date: 07/30/23 Principal diagnosis: Coronary artery disease. The patient is seen today 07/22/2023 in follow-up on the selective care unit. He is currently sitting up in bed. Awake and alert in no acute distress. He is maintaining O2 saturations in the 90s on 3 L/m per nasal cannula. He is pulling approximately 1200 ML's on his incentive spirometer. He continues to be worked up for possible bypass surgery along with mitral valve and tricuspid valve repairs. FEV1 value was 1.26 or 54% of predicted. NicoDerm patch remains in place. The patient is seen today 07/23/2023 in follow-up on the selective care unit. He is currently sitting up in a chair at the bedside. Awake and alert in no acute distress. Denies any worsening shortness of breath cough or congestion. Denies any chest pain. He is maintaining good O2 saturations up to 97% on room air. Afebrile. Sodium 135. Potassium 3.7. Bicarb 27. BUN 22. Creatinine 0.90. NicoDerm patch in place. The patient is seen today 07/24/2023 in follow-up on the selective care unit. Awake and alert in no acute distress. Sitting in bed. Denies any chest pain. No palpitations. No worsening shortness of breath or cough. He did have a nightmare and some confusion last evening. Oriented 3 today. Maintaining O2 saturations in the 90s on 2 L/m per nasal cannula. He is afebrile. Hemodynamically stable. NicoDerm patch in place. The patient is seen today 07/25/2023 in follow-up on the selective care unit. He is ambulating in his room. Awake and alert in no acute distress. Denies any chest pain. Denies any worsening shortness of breath, cough or congestion. He is maintaining good O2 saturations in the 90s on 2 L/m per nasal cannula. Afebrile. Hemodynamically stable. Sodium 134. Potassium 4.3. Bicarb 28. BUN 19. Creatinine 0.87. Glucose 113. NicoDerm patch remains in place. Progress note dated 07/26/2023. The patient is seen today in room 356. The patient is scheduled to have bypass grafting, on July 27. Currently he is on 2 L of oxygen. No IV fluids. He is sitting at the bedside. White count 5.4, hemoglobin 10.4, hematocrit 30.9, with a normal platelet count. Sodium 132, potassium 4.3, chlorides 98, CO2 29, BUN 21, creatinine 0.85. Chest x-ray shows changes of COPD, with mild interstitial pulmonary edema. Progress note dated 07/27/2023. The patient was seen this morning in room 356. The patient is scheduled to have open-heart surgery today, 07/27/2023. He is currently on 2 L of oxygen. Lab data today includes a glucose of 121. Lab data from July 26 have been re viewed. X-rays, medications, and other information has also been reviewed. Previous chest x-ray shows changes of COPD, with mild interstitial pulmonary edema. Progress note dated 07/28/2023. The patient is postop day #1, status post three-vessel bypass grafting, mitral valve repair, tricuspid valve repair, and exclusion of the left atrial appendage. The patient's currently been extubated to 4 L of oxygen. He was extubated on July 27, at nighttime. He is getting saline at 50 mL an hour, and an insulin drip at 2.5 units an hour. The patient is very anxious and received some benzodiazepine. White count 6.9, hemoglobin 7.2, hematocrit 20.9, and a platelet count of 50,000. Sodium 135, potassium 4.6, chlorides 105, CO2 26, BUN 23, and creatinine 0.94. Chest x-ray shows some mild pulmonary vascular congestion, and some basilar atelectasis. The endotracheal tube has been removed. Progress note dated 07/29/2023. This patient is seen today in room 266. He's postoperative day #2, status post three-vessel bypass grafting, mitral and tricuspid valve repair, and exclusion of the left atrial appendage. Patient is currently on 4 L of oxygen. He is getting saline at 20 mL an hour. He will get 1 unit of packed red blood cells today. White count is 9, 11 6.9, hematocrit 20.4, and platelet count 82,000. Sodium 132, potassium 4.3, chlorides 104, CO2 25, BUN 23, and creatinine 0.82. Albumin is 2.7. Chest x-ray shows some airspace opacities at the right lung base. There is also some infiltrate or atelectasis at the left lung base. Progress note dated 07/30/2023. The patient is again seen today in room 266. He's postoperative day #3, status post three-vessel bypass grafting, mitral and tricuspid valve repair, and exclusion of left atrial appendage. Currently, the patient's sitting upright in the chair. He is on 2 L of oxygen. He continues on amiodarone at 0.5 mg/m. He is also getting saline at 20 mL an hour. According to the nurse, he had a pretty stable and uneventful night. White count 8.1, he will been 7.7, hematocrit 22.1, and platelet count 92,000. Sodium 130, potassium 4.5, chlorides 102, CO2 26, BUN 24, and creatinine 0.74. AST is 248. ALT is 79. Chest x-ray in my opinion show some cardiomegaly, and mild increased vascular congestion. Objective - Vital Signs Vital signs: Vital Signs Temp 98.2 F 07/30/23 08:00 Pulse 59 L 07/30/23 10:00 Resp 15 07/30/23 10:00 BP 123/70 07/30/23 10:00 Pulse Ox 91 L 07/30/23 09:00 FiO2 50 07/27/23 22:02 Intake & Output 07/29/23 07/30/23 07/30/23 18:59 06:59 18:59 Intake Total 1209 812 104 Output Total 1165 480 519 Balance 44 332 -415 Weight 77.1 kg 77.6 kg Intake: IV 332 312 104 Pressure bags (0.9 Sodium 72 72 24 Chloride) Sodium Chloride 0.9% 1, 260 240 80 000 ml @ 20 mls/hr IV . Q24H [facility] Rx#:[id number] Oral 500 500 Tube Feeding 120 Blood Product 257 Rc Pheresis 2 As3 Unit 257 [id number] Output: Chest Tube Drainage 170 140 0 L. plurel 160 140 0 MS 10 Urine 995 340 519 Other: Voiding Method Indwelling Catheter Indwelling Catheter Indwelling Catheter ABP, PAP, CO, CI - Last Documented Arterial Blood Pressure 131/56 Pulmonary Artery Pressure 52/14 Cardiac Output 4 Cardiac Index 2.2 - Exam No acute distress, oriented 3. Currently on 2 L of oxygen. HEENT examination is grossly unremarkable. Mucous membranes are moist. No oral lesions. Neck supple. Full range of motion. No adenopathy thyromegaly or neck vein distention. Cardiovascular examination reveals regular rhythm rate. S1-S2 normal. No S3 or S4. No discernible murmur noted. Heart rate 60 bpm. Lungs reveal minimal bibasilar crackles. No wheezes or rhonchi. Breath sounds are equal bilaterally. Abdomen soft bowel sounds are heard. No masses or tenderness. Extremities are intact. No cyanosis clubbing or edema. Skin is without rash or lesion. Neurologic examination is brief but nonfocal. - Labs CBC & Chem 7: 07/30/23 05:18 07/30/23 05:18 Labs: Abnormal Lab Results - Last 24 Hours (Table) 07/29/23 07/29/23 07/29/23 Range/Units 08:55 11:10 13:55 RBC 2.61 L (4.30-5.90) m/uL Hgb 8.2 L (13.0-17.5) gm/dL Hct 24.0 L (39.0-53.0) % RDW 15.7 H (11.5-15.5) % Plt Count 85 L (150-450) k/uL Lymphocytes # (1.0-4.8) k/uL Sodium (137-145) mmol/L BUN (9-20) mg/dL Glucose (74-99) mg/dL POC Glucose (mg/dL) 164 H (70-110) mg/dL Calcium (8.4-10.2) mg/dL AST (17-59) U/L ALT (4-49) U/L Total Protein (6.3-8.2) g/dL Albumin (3.5-5.0) g/dL Crossmatch See Detail 07/29/23 07/29/23 07/29/23 Range/Units 16:55 16:57 20:02 RBC (4.30-5.90) m/uL Hgb (13.0-17.5) gm/dL Hct (39.0-53.0) % RDW (11.5-15.5) % Plt Count (150-450) k/uL Lymphocytes # (1.0-4.8) k/uL Sodium (137-145) mmol/L BUN (9-20) mg/dL Glucose (74-99) mg/dL POC Glucose (mg/dL) 263 H 259 H 191 H (70-110) mg/dL Calcium (8.4-10.2) mg/dL AST (17-59) U/L ALT (4-49) U/L Total Protein (6.3-8.2) g/dL Albumin (3.5-5.0) g/dL Crossmatch 07/30/23 07/30/23 07/30/23 Range/Units 05:18 05:18 06:39 RBC 2.40 L (4.30-5.90) m/uL Hgb 7.7 L (13.0-17.5) gm/dL Hct 22.1 L (39.0-53.0) % RDW 15.9 H (11.5-15.5) % Plt Count 92 L (150-450) k/uL Lymphocytes # 0.4 L (1.0-4.8) k/uL Sodium 130 L (137-145) mmol/L BUN 24 H (9-20) mg/dL Glucose 120 H (74-99) mg/dL POC Glucose (mg/dL) 126 H (70-110) mg/dL Calcium 7.8 L (8.4-10.2) mg/dL AST 248 H (17-59) U/L ALT 79 H (4-49) U/L Total Protein 4.7 L (6.3-8.2) g/dL Albumin 2.6 L (3.5-5.0) g/dL Crossmatch Microbiology - Last 24 Hours (Table) 07/28/23 10:55 Gram Stain - Preliminary Pericardial Fluid Tissue Culture - Preliminary Assessment and Plan Assessment: Postop day #3, status post three-vessel bypass grafting, mitral valve repair, tricuspid valve repair, and exclusion of the left atrial appendage. Routine postoperative ventilator management, with extubation, on July 27. Multi-vessel coronary artery disease and severe mitral regurgitation, being considered for open heart surgery with surgical revascularization and mitral valve replacement, however, the patient does want to proceed with this option. Surgery is planned for 07/27/2023. Exertional dyspnea, likely secondary to above. CTA of the chest was completed for PE protocol which demonstrated no diagnostic evidence of pulmonary embolism, COPD like changes, pulmonary fibrosis, trace bilateral pleural effusions, grou ndglass changes, posssibly mild venous congestion correlate for mild CHF exacerbation. Benign essential hypertension. Hyperlipidemia. Abdominal aortic aneurysm, measuring 3.3 cm incidentally found on chest CTA. GERD. Chronic and ongoing nicotine dependence. Plan: Plan dated 07/26/2023. The patient is advised, about the importance of using the incentive spirometer. We also but the patient know what our role in this, as pulmonary/critical care physician, after open heart surgery. We explained to him, that our first goal is to get him extricated or liberated from mechanical ventilation. Secondly, we work with the patient throughout his hospitalization, to assure that he does not develop pneumonia, pleural effusion, atelectasis, or lobar collapse. We will continue to follow the patient, and make recommendations along the way. Plan dated 07/27/2023. The patient is scheduled to have open-heart surgery today. He was currently on 2 L prior to surgery. Obviously, he will be coming back to the intensive care unit, on the mechanical ventilator. Yesterday, we explained to the patient, that are goal is to get the patient extricated or liberated from mechanical ventilation as soon as possible, and secondly, evaluate the patient's lungs on a daily patient, to prevent, collapse, atelectasis, pleural effusion, or pneumonia. Additional recommendations and suggestions are forthcoming. Plan dated 07/28/2023. The patient is seen in room 266, in the intensive care unit. He sitting in the chair, next to his bed. He is currently on 4 L of oxygen by nasal cannula. He is getting saline at 50 mL an hour, and an insulin drip at 2.5 units an hour. The patient is postop day #1, status post three-vessel bypass grafting, mitral valve repair, tricuspid valve repair, and exclusion of left atrial appendage. Labs, x-rays, and medications are reviewed. We will continue to follow, and make recommendations along the way. Chest x-ray shows primarily postoperative changes. Prognosis is guarded. Plan dated 07/29/2023. The patient is seen today in room 266. He remains on oxygen at 4 L. He is getting saline at 20 mL an hour. It's 0.9, the patient will get 1 unit of packed red blood cells. Labs, x-rays, and medications are all reviewed. The patient appears be doing relatively well. We encourage deep breathing, coughing, and clearing of secretions. We also encouraged him to use the incentive spirometer, every hour. Plan dated 07/30/2023. The patient is seen today in room 266. He continues on oxygen at 2 L. In addition, the patient is getting saline IV, at KVO, and amiodarone at 0.5 mg/m. Today's postop day #3. We encourage deep breathing, coughing, clearing of secretions. Chest x-rays reviewed. It shows some mild pulmonary vascular congestion. We also recommend, hourly use of the incentive spirometer. Time with Patient: Greater than 30
--- NOTE | 2023-07-30 11:21 | XR ---
EXAMINATION TYPE: XR chest 1V portable DATE OF EXAM: 07/30/2023 COMPARISON: 07/29/2023 INDICATION: Postcardiac surgery TECHNIQUE: Single frontal view of the chest is obtained. FINDINGS: The heart size is slightly prominent. The pulmonary vasculature is normal. Perihilar infiltrates are present. Correlate for mild ulnar edema. Sternotomy wires are present from CABG. IMPRESSION: 1. Perihilar infiltrates likely on the basis of pulmonary edema. 2. Mild cardiomegaly
[2023-07-30 11:54] LABS: Glucose,Whole Blood 145 mg/dL (70-110)
[2023-07-30] MEDS: ASCORBIC ACID 500 MG TAB PO SCH (13:00)
[2023-07-30] MEDS: FERROUS SULFATE 325 MG TAB PO SCH (13:00)
--- NOTE | 2023-07-30 15:46 | PN ---
PROGRESS NOTE DATE OF SERVICE: 07/30/2023 SUBJECTIVE: This is a 73-year-old gentleman, who was admitted with CAD, CABG, is improving significantly. No chest pain. No palpitations. No fever. The patient complained of insomnia. PHYSICAL EXAMINATION: VITAL SIGNS: Pulse is 59, blood pressure is 120/58, respirations 20. CHEST: Few scattered rhonchi. ABDOMEN: Soft. NERVOUS SYSTEM: Nonfocal. LABORATORY DATA: Reviewed. ASSESSMENT: 1. Triple-vessel coronary artery disease, status post coronary artery bypass grafting. 2. Acute hypoxic respiratory failure. 3. Gastroesophageal reflux disease. 4. Hyperlipidemia. 5. Multiple medical issues. RECOMMENDATIONS: Recommend to continue current management, continue symptomatic treatment, incentive spirometry. Nancy p.r.n. Closely follow with Cardiothoracic Surgery. Further recommendations to follow. MMODL / IJN: [id number] /
[2023-07-30] MEDS: SODIUM CHLORIDE 0.9% 1,000 ML IV SCH (15:53)
--- NOTE | 2023-07-30 16:04 | P.PN ---
Subjective HISTORY OF PRESENT ILLNESS: This is a 73-year-old male who was admitted to the hospital secondary to non- STEMI. Patient underwent cardiac catheterization revealing severe triple vessel disease. 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 Patient examined this morning at the bedside. Patient denies any chest pain or pressure. He denies shortness of breath. He does report that he fell overnight and hit his nose. He reports feeling a little bit lightheaded. Vital signs have been stable. Telemetry reveals sinus mechanism. 07/28 Patient seen and examined. Patient underwent CABG with GIBBS to LAD, SVG to OM, SVG to PDA, mitral valve repair with NeoChords and ring annuloplasty as well as tricupid ring annuloplasty and exclusion of KASANDRA on 07/27/2023. Patient has been doing okay however has been feeling somewhat anxious. Milrinone was discontinued this morning. Blood pressures have been borderline in the 100-110 systolic. Patient still having some incision pain. Denies any significant shortness breath. Does not have an appetite. CVP reading 9. Has been able to tolerate low-dose metoprolol. Hemoglobin down to 7.2, platelets 50, creatinine 0.9, AST 142, ALT 24, albumin 2.6. Maintaining sinus rhythm. 07/29 Patient seen and examined. Patient admits he is feeling somewhat better. Den ies any chest pain or pressure. Has a little bit more of an appetite. Significant discrepancy between right radial arterial line and manual blood pressure cuff. Hemoglobin down to 6.9 and will receive 1 unit of blood. Creatinine remains stable. 07/30 Patient seen and examined. Patient did not sleep much at all yesterday and currently sleeping. at bedside. Nurse admits he has been doing fairly well through most of the day. Since sleeping, heart rates have been lower and currently being paced. PHYSICAL EXAM: VITAL SIGNS: Reviewed. GENERAL: Well-developed in no acute distress. NECK: Supple. No JVD or thyromegaly LUNGS: Respirations even and unlabored. Lungs essentially clear to auscultation bilaterally. HEART: Regular rate and rhythm. S1 and S2 heard. Systolic murmur noted. EXTREMITIES: Normal range of motion. No clubbing or cyanosis. Peripheral pulses intact. No lower extremity edema ASSESSMENT: Non-STEMI Severe triple vessel coronary artery disease s/p CABG GIBBS to LAD, SVG to OM, SVG to PDA 07/27 Valvular heart disease, s/p mitral valve repair with NeoChords and mitral ring annuloplasty as well as tricupid ring annuloplasty Hypertension Hyperlipidemia Abdominal aortic aneurysm Nicotine dependence Bradycardia, likely related to med effect from amio and BBlocker plus vagal tone. Monitor PLAN: He has been intermittently paced. Monitor on the amiodarone and metoprolol and may need to decrease. Overall however appears to be proving and continue with current regimen. Objective - Vital Signs Vital signs: Vital Signs Temp 98.2 F 07/30/23 12:00 Pulse 60 07/30/23 15:00 Resp 34 H 07/30/23 15:00 BP 98/56 07/30/23 15:00 Pulse Ox 95 07/30/23 15:00 FiO2 50 07/27/23 22:02 Intake & Output 07/29/23 07/30/23 07/30/23 18:59 06:59 18:59 Intake Total 1209 812 234 Output Total 1165 480 676 Balance 44 332 -442 Weight 77.1 kg 77.6 kg Intake: IV 332 312 234 Pressure bags (0.9 Sodium 72 72 54 Chloride) Sodium Chloride 0.9% 1, 260 240 180 000 ml @ 20 mls/hr IV . Q24H [facility] Rx#:[id number] Oral 500 500 Tube Feeding 120 Blood Product 257 Rc Pheresis 2 As3 Unit 257 [id number] Output: Chest Tube Drainage 170 140 0 L. plurel 160 140 0 MS 10 Urine 995 340 676 Other: Voiding Method Indwelling Catheter Indwelling Catheter Indwelling Catheter ABP, PAP, CO, CI - Last Documented Arterial Blood Pressure 125/45 Pulmonary Artery Pressure 52/14 Cardiac Output 4 Cardiac Index 2.2 - Labs CBC & Chem 7: 07/30/23 05:18 07/30/23 05:18 Labs: Abnormal Lab Results - Last 24 Hours (Table) 07/29/23 07/29/23 07/29/23 Range/Units 16:55 16:57 20:02 RBC (4.30-5.90) m/uL Hgb (13.0-17.5) gm/dL Hct (39.0-53.0) % RDW (11.5-15.5) % Plt Count (150-450) k/uL Lymphocytes # (1.0-4.8) k/uL Sodium (137-145) mmol/L BUN (9-20) mg/dL Glucose (74-99) mg/dL POC Glucose (mg/dL) 263 H 259 H 191 H (70-110) mg/dL Calcium (8.4-10.2) mg/dL AST (17-59) U/L ALT (4-49) U/L Total Protein (6.3-8.2) g/dL Albumin (3.5-5.0) g/dL 07/30/23 07/30/23 07/30/23 Range/Units 05:18 05:18 06:39 RBC 2.40 L (4.30-5.90) m/uL Hgb 7.7 L (13.0-17.5) gm/dL Hct 22.1 L (39.0-53.0) % RDW 15.9 H (11.5-15.5) % Plt Count 92 L (150-450) k/uL Lymphocytes # 0.4 L (1.0-4.8) k/uL Sodium 130 L (137-145) mmol/L BUN 24 H (9-20) mg/dL Glucose 120 H (74-99) mg/dL POC Glucose (mg/dL) 126 H (70-110) mg/dL Calcium 7.8 L (8.4-10.2) mg/dL AST 248 H (17-59) U/L ALT 79 H (4-49) U/L Total Protein 4.7 L (6.3-8.2) g/dL Albumin 2.6 L (3.5-5.0) g/dL 07/30/23 Range/Units 11:51 RBC (4.30-5.90) m/uL Hgb (13.0-17.5) gm/dL Hct (39.0-53.0) % RDW (11.5-15.5) % Plt Count (150-450) k/uL Lymphocytes # (1.0-4.8) k/uL Sodium (137-145) mmol/L BUN (9-20) mg/dL Glucose (74-99) mg/dL POC Glucose (mg/dL) 145 H (70-110) mg/dL Calcium (8.4-10.2) mg/dL AST (17-59) U/L ALT (4-49) U/L Total Protein (6.3-8.2) g/dL Albumin (3.5-5.0) g/dL Microbiology - Last 24 Hours (Table) 07/28/23 10:55 Gram Stain - Preliminary Pericardial Fluid Tissue Culture - Preliminary
[2023-07-30 18:33] LABS: Anisocytosis Slight; Basophils % (A) 0 %; Eosinophils % (A) 0 %; HCT 22.6 % (39.0-53.0); HGB 7.7 gm/dL (13.0-17.5); Lymphocytes # (A) 0.5 k/uL (1.0-4.8); Lymphocytes % (A) 6 %; MCH 31.6 pg (25.0-35.0); MCV 92.9 fL (80.0-100.0); Mean Platelet Volume 9.8; Monocytes # (A) 0.3 k/uL (0-1.0); Monocytes % (A) 4 %; Neutrophils # (A) 6.5 k/uL (1.3-7.7); Neutrophils % (A) 88 %; Platelet Count 121 k/uL (150-450); Poikilocytosis Slight; RBC 2.44 m/uL (4.30-5.90); RDW 16.1 % (11.5-15.5); WBC 7.4 k/uL (3.8-10.6)
[2023-07-30 18:55] LABS: Glucose,Whole Blood 143 mg/dL (70-110)
[2023-07-30 19:50] LABS: Glucose,Whole Blood 130 mg/dL (70-110)
[2023-07-30] MEDS: ATORVASTATIN 40 MG TAB PO SCH (20:06)
[2023-07-30] MEDS: PANTOPRAZOLE 40 MG/10 ML VIAL IVP SCH (20:06)
[2023-07-30] MEDS: MELATONIN 3 MG TABLET PO PRN (22:28)
[2023-07-31] MEDS: SENNOSIDES-DOCUSATE SODIUM 1 EACH TAB PO SCH (03:19)
[2023-07-31] MEDS: HYDROcodone/APAP 5-325MG 1 EACH TAB PO PRN (04:07)
[2023-07-31 05:19] LABS: Anisocytosis Slight; Basophils % (A) 0 %; Eosinophils % (A) 0 %; HCT 21.4 % (39.0-53.0); HGB 7.2 gm/dL (13.0-17.5); Lymphocytes # (A) 0.5 k/uL (1.0-4.8); Lymphocytes % (A) 7 %; MCH 31.3 pg (25.0-35.0); MCHC 33.5 g/dL (31.0-37.0); MCV 93.5 fL (80.0-100.0); Mean Platelet Volume 9.3; Monocytes # (A) 0.2 k/uL (0-1.0); Monocytes % (A) 3 %; Neutrophils # (A) 5.5 k/uL (1.3-7.7); Neutrophils % (A) 88 %; Platelet Count 120 k/uL (150-450); Poikilocytosis Slight; RBC 2.28 m/uL (4.30-5.90); RDW 16.7 % (11.5-15.5); WBC 6.3 k/uL (3.8-10.6)
[2023-07-31 05:40] LABS: Ionized Calcium 4.5 mg/dL (4.5-5.3)
[2023-07-31 05:51] LABS: ALT 127 U/L (4-49); AST 240 U/L (17-59); African American GFR (CKD) >90 (>60 ml/min/1.73 sqM); Albumin 2.4 g/dL (3.5-5.0); Alkaline Phosphatase 65 U/L (38-126); Anion Gap 6 mmol/L; Blood Urea Nitrogen 29 mg/dL (9-20); Calcium 7.7 mg/dL (8.4-10.2); Carbon Dioxide 24 mmol/L (22-30); Chloride 98 mmol/L (98-107); Glucose 104 mg/dL (74-99); Magnesium 2.2 mg/dL (1.6-2.3); Non-African American GFR(CKD) 87 (>60 ml/min/1.73 sqM); Sodium 128 mmol/L (137-145); Total Bilirubin 1.1 mg/dL (0.2-1.3); Total Protein 4.6 g/dL (6.3-8.2)
[2023-07-31] MEDS ORDERED: bisacodyL 10 MG SUPP RECTAL PRN (07:24)
[2023-07-31] MEDS ORDERED: CALCIUM GLUCONATE IN NACL 2 GM in SALINE 1 100ML.BAG IVPB ONE (08:00)
[2023-07-31] MEDS: INSULIN ASPART (NovoLOG) 100 UNIT/ML VIAL SQ SCH ×4 (08:13→21:46)
[2023-07-31] MEDS ORDERED: FUROSEMIDE 10 MG/ML 2 ML VIAL IV ONE (08:30)
--- NOTE | 2023-07-31 08:30 | P.PN ---
Subjective Progress Note Date: 07/31/23 Principal diagnosis: Severe diffuse calcific triple-vessel coronary artery disease with chronically occluded RCA and first OM, unstable angina, severe mitral valve regurgitation wi th prolapse of P2 with ruptured chord, moderate tricuspid valve regurgitation with severe pulmonary hypertension. History of hypertension, hyperlipidemia, abdominal aortic aneurysm with calcification of the posterior aspect of the ascending aorta, chronic ongoing tobacco dependence, moderate restrictive lung disease, GERD, depression POD #4 triple-vessel coronary artery bypass grafting using the left internal mammary artery to the left anterior descending artery, reverse saphenous vein graft from the aorta to the first obtuse marginal artery, reverse saphenous vein graft from the aorta to the posterior descending artery, complex mitral valve repair with construction of two pairs of NeoChords to P2 and posterior ring annuloplasty using a 34 mm AnnuloFlex ring, tricuspid valve repair using a 28 mm MC3 ring, exclusion of the left atrial appendage using a 40 mm AtriClip, endoscopic harvesting of the left greater saphenous vein, intraoperative graft flow measurements using the [employer] system, intraoperative transesophageal echocardiogram and epiaortic scanning Postoperative acute blood loss anemia and thrombocytopenia, expected given hemodilution and cardiopulmonary bypass pump Paroxysmal atrial fibrillation, known common occurrence after open heart surgery, not a complication, currently in sinus Elevated transaminases, likely medication induced The patient was seen and examined this morning sitting up in a recliner in no acute distress. Currently atrially paced at 60 BPM, underlying rhythm junctional in the 40s. No further episodes of atrial fibrillation. Patient jett s complain of some post surgical pain, denies shortness of breath. Chest x-ray, labs reviewed. Patient did have black tarry stool yesterday (patient is on iron), and another stool yesterday described by nursing as approximately 40 mL red bloody stool. Hgb this am 7.2, was 7.7 yesterday. Currently on 2 L nasal cannula with oxygen saturation in the mid 90s, able to achieve 750-1000 mL on his incentive spirometry. Right internal jugular cordis, right radial arterial line remains present. Patient ambulated in the hallway yesterday with assist. Objective - Vital Signs Vital signs: Vital Signs Temp 97.8 F 07/31/23 04:00 Pulse 60 07/31/23 07:00 Resp 20 07/31/23 07:00 BP 96/59 07/31/23 07:00 Pulse Ox 95 07/31/23 07:00 FiO2 50 07/27/23 22:02 Intake & Output 07/30/23 07/31/23 07/31/23 18:59 06:59 18:59 Intake Total 412 588 Output Total 818 505 Balance -406 83 Weight 76.9 kg Intake: IV 312 338 Pressure bags (0.9 Sodium 72 78 Chloride) Sodium Chloride 0.9% 1, 240 260 000 ml @ 20 mls/hr IV . Q24H [facility] Rx#:[id number] Oral 100 250 Output: Chest Tube Drainage 0 L. plurel 0 Urine 778 505 Stool 40 Other: Voiding Method Indwelling Catheter Indwelling Catheter # Bowel Movements 1 ABP, PAP, CO, CI - Last Documented Arterial Blood Pressure 94/33 Pulmonary Artery Pressure 52/14 Cardiac Output 4 Cardiac Index 2.2 - Exam CONSTITUTIONAL: Cooperative, no acute distress RESPIRATORY: Lungs sounds diminished bilaterally. Respirations even, nonlabored. Currently on 2 L nasal cannula with oxygen saturation 93%. Able to achieve 750-1000 mL on incentive spirometry. Strong loose cough. CARDIOVASCULAR: S1, S2 present. Regular rate and rhythm, atrially paced at 60 BPM, underlying junctional rhythm in the 40s on telemetry. Sternum stable. Palpable peripheral pulses bilaterally. No edema present. No calf pain or tenderness noted. Heart hugger in place with patient demonstrating appropriate use. Antiembolism stockings, SCDs present. GASTROINTESTINAL: Abdomen soft, nontender, nondistended. Active bowel sounds present 4 quadrants. Tolerating diet. Positive bloody bowel movement yesterday GENITOURINARY: Irizarry present draining clear, yellow urine. Output overnight 30-55 mL per hour, 1193 mL the last 24 hours INTEGUMENTARY: Skin is warm and dry with evidence of good perfusion. Anterior chest incision well approximated and covered with dry intact dressing. Left lower extremity EVH site well approximated NEUROLOGIC: Cranial nerves II through XII intact MUSKULOSKELETAL: Able to move all extremities, strength equal bilaterally, gait normal PSYCHIATRIC: Alert and oriented to person place and time, intact judgment and insight INVASIVE LINES AND TUBES: A/V epicardial pacemaker wires present, connected to generator, AAI mode with backup rate 60 bpm. Right internal jugular cordis, right radial arterial line present. Last CVP 9-12. - Allied health notes Allied health notes reviewed: nursing - Labs CBC & Chem 7: 07/31/23 04:45 07/31/23 04:45 Labs: Abnormal Lab Results - Last 24 Hours (Table) 07/30/23 07/30/23 07/30/23 Range/Units 11:51 18:00 18:52 RBC 2.44 L (4.30-5.90) m/uL Hgb 7.7 L (13.0-17.5) gm/dL Hct 22.6 L (39.0-53.0) % RDW 16.1 H (11.5-15.5) % Plt Count 121 L (150-450) k/uL Lymphocytes # 0.5 L (1.0-4.8) k/uL Sodium (137-145) mmol/L BUN (9-20) mg/dL Glucose (74-99) mg/dL POC Glucose (mg/dL) 145 H 143 H (70-110) mg/dL Calcium (8.4-10.2) mg/dL AST (17-59) U/L ALT (4-49) U/L Total Protein (6.3-8.2) g/dL Albumin (3.5-5.0) g/dL 07/30/23 07/31/23 07/31/23 Range/Units 19:49 04:45 04:45 RBC 2.28 L (4.30-5.90) m/uL Hgb 7.2 L (13.0-17.5) gm/dL Hct 21.4 L (39.0-53.0) % RDW 16.7 H (11.5-15.5) % Plt Count 120 L (150-450) k/uL Lymphocytes # 0.5 L (1.0-4.8) k/uL Sodium 128 L (137-145) mmol/L BUN 29 H (9-20) mg/dL Glucose 104 H (74-99) mg/dL POC Glucose (mg/dL) 130 H (70-110) mg/dL Calcium 7.7 L (8.4-10.2) mg/dL AST 240 H (17-59) U/L ALT 127 H (4-49) U/L Total Protein 4.6 L (6.3-8.2) g/dL Albumin 2.4 L (3.5-5.0) g/dL Microbiology - Last 24 Hours (Table) 07/28/23 10:55 Gram Stain - Preliminary Pericardial Fluid Tissue Culture - Preliminary - Imaging and Cardiology Chest x-ray: image reviewed Assessment and Plan Assessment: Severe diffuse calcific triple-vessel coronary artery disease with chronically occluded RCA and first OM, unstable angina, status post 3V CABG Severe mitral valve regurgitation with prolapse of P2 with ruptured chord, status post complex mitral valve repair Moderate tricuspid valve regurgitation with severe pulmonary hypertension, status post tricuspid valve repair History of hypertension Hyperlipidemia, treated, cholesterol 121, LDL 60.5treated Abdominal aortic aneurysm with calcification of the posterior aspect of the ascending aorta Chronic ongoing tobacco dependence Moderate restrictive lung disease, preoperative FEV1 54% of predicted GERD Depression Postoperative acute blood loss anemia and thrombocytopenia, expected Paroxysmal atrial fibrillation, currently sinus Elevated transaminases Plan: Continue to optimize medical management with low dose aspirin, plavix, statin and beta yamile. Will increase beta yamile as able. ARB started yesterday for afterload reduction, decreased today with hold parameters Discontinue amiodarone Wean oxygen as tolerated. Encourage incentive spirometry 10 x every hour while awake. Bronchodilators per pulmonology Increase activity as tolerated. PT/OT/cardiac rehab consulted Will monitor daily labs and CXR. Electrolyte replacement per protocol. HIT panel pending. Will give IV Lasix GI/DVT prophylaxis, protonix changed to IV BID Pain control with current medication regimen Insulin management per internal medicine, patient is not diabetic with preoperative HgbA1c 5.8%, but needs tight blood sugar control to prevent infection Discontinue irizarry catheter, may bladder scan and straight cath for >300 mL residual Continue to record strict accurate I/Os Daily weights Smoking cessation counseling and education provided More recommendations to follow based on patient's progress
[2023-07-31] MEDS: IPRATROPIUM-ALBUTEROL 3 ML NEB INHALATION SCH ×4 (08:40→20:01)
[2023-07-31] MEDS: ALPRAZolam 0.25 MG TAB PO PRN ×3 (08:53→21:52)
[2023-07-31] MEDS: PANTOPRAZOLE 40 MG/10 ML VIAL IVP SCH ×2 (08:54→19:47)
[2023-07-31] MEDS: CLOPIDOGREL 75 MG TAB PO SCH (08:54)
[2023-07-31] MEDS: CITALOPRAM HYDROBROMIDE 20 MG TAB PO SCH (08:54)
[2023-07-31] MEDS: CHOLECALCIFEROL 25 MCG (1000 IU) TABLET PO SCH (08:54)
[2023-07-31] MEDS: ASPIRIN 81 MG PO SCH (08:54)
[2023-07-31] MEDS: FONDAPARINUX 2.5 MG/0.5 ML SYRINGE SQ SCH (08:55)
--- NOTE | 2023-07-31 09:16 | P.PN ---
Subjective HISTORY OF PRESENT ILLNESS: This is a 73-year-old male who was admitted to the hospital secondary to non- STEMI. Patient underwent cardiac catheterization revealing severe triple vessel disease. 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 Patient examined this morning at the bedside. Patient denies any chest pain or pressure. He denies shortness of breath. He does report that he fell overnight and hit his nose. He reports feeling a little bit lightheaded. Vital signs have been stable. Telemetry reveals sinus mechanism. 07/28 Patient seen and examined. Patient underwent CABG with GIBBS to LAD, SVG to OM, SVG to PDA, mitral valve repair with NeoChords and ring annuloplasty as well as tricupid ring annuloplasty and exclusion of KASANDRA on 07/27/2023. Patient has been doing okay however has been feeling somewhat anxious. Milrinone was discontinued this morning. Blood pressures have been borderline in the 100-110 systolic. Patient still having some incision pain. Denies any significant shortness breath. Does not have an appetite. CVP reading 9. Has been able to tolerate low-dose metoprolol. Hemoglobin down to 7.2, platelets 50, creatinine 0.9, AST 142, ALT 24, albumin 2.6. Maintaining sinus rhythm. 07/29 Patient seen and examined. Patient admits he is feeling somewhat better. Den ies any chest pain or pressure. Has a little bit more of an appetite. Significant discrepancy between right radial arterial line and manual blood pressure cuff. Hemoglobin down to 6.9 and will receive 1 unit of blood. Creatinine remains stable. 07/30 Patient seen and examined. Patient did not sleep much at all yesterday and currently sleeping. at bedside. Nurse admits he has been doing fairly well through most of the day. Since sleeping, heart rates have been lower and currently being paced. 07/31 Patient seen and examined. Patient still feels fairly fatigued and lethargic. Denies any specific complaints. AST and ALT have gone up mildly and the amiodarone was discontinued in addition for his bradycardia. He remains ventricularly paced at 60 bpm. Underlying rhythm appears A. fib with slow ventricular rate. Pacer rate was decreased at 54 bpm with underlying heart rates mainly higher 50s. HIT panel is not resulted and currently on Arixtra. Metoprolol also has been discontinued secondary to bradycardia. PHYSICAL EXAM: VITAL SIGNS: Reviewed. GENERAL: Well-developed in no acute distress. NECK: Supple. No JVD or thyromegaly LUNGS: Respirations even and unlabored. Lungs essentially clear to auscultation bilaterally. HEART: Regular rate and rhythm. S1 and S2 heard. Systolic murmur noted. EXTREMITIES: Normal range of motion. No clubbing or cyanosis. Peripheral pulses intact. No lower extremity edema ASSESSMENT: Non-STEMI Severe triple vessel coronary artery disease s/p CABG GIBBS to LAD, SVG to OM, SVG to PDA 07/27 Valvular heart disease, s/p mitral valve repair with NeoChords and mitral ring annuloplasty as well as tricupid ring annuloplasty Hypertension Hyperlipidemia Abdominal aortic aneurysm Nicotine dependence Bradycardia, likely related to med effect from amio and BBlocker plus vagal tone. Monitor Paroxysmal Afib, postoperatively PLAN: Continue to hold metoprolol and amiodarone given bradycardia as well as increased liver enzymes. Hyponatremia noted however does not appear significantly volume overloaded. Continue with current supportive care. Monitor Na+, AST/ALT. Objective - Vital Signs Vital signs: Vital Signs Temp 97.8 F 07/31/23 08:00 Pulse 60 07/31/23 08:49 Resp 27 H 07/31/23 08:00 BP 128/49 07/31/23 08:00 Pulse Ox 93 L 07/31/23 08:44 FiO2 50 07/27/23 22:02 Intake & Output 07/30/23 07/31/23 07/31/23 18:59 06:59 18:59 Intake Total 412 588 126 Output Total 818 505 50 Balance -406 83 76 Weight 76.9 kg Intake: IV 312 338 26 Pressure bags (0.9 Sodium 72 78 6 Chloride) Sodium Chloride 0.9% 1, 240 260 20 000 ml @ 20 mls/hr IV . Q24H [facility] Rx#:[id number] Intake, IV Titration 100 Amount Calcium Gluconate in NaCl 100 2 gm In Saline 1 100ml. bag @ 100 mls/hr IVPB ONCE ONE Rx#:[id number] Oral 100 250 Output: Chest Tube Drainage 0 L. plurel 0 Urine 778 505 50 Stool 40 Other: Voiding Method Indwelling Catheter Indwelling Catheter # Bowel Movements 1 ABP, PAP, CO, CI - Last Documented Arterial Blood Pressure 143/48 Pulmonary Artery Pressure 52/14 Cardiac Output 4 Cardiac Index 2.2 - Labs CBC & Chem 7: 07/31/23 04:45 07/31/23 04:45 Labs: Abnormal Lab Results - Last 24 Hours (Table) 07/30/23 07/30/23 07/30/23 Range/Units 11:51 18:00 18:52 RBC 2.44 L (4.30-5.90) m/uL Hgb 7.7 L (13.0-17.5) gm/dL Hct 22.6 L (39.0-53.0) % RDW 16.1 H (11.5-15.5) % Plt Count 121 L (150-450) k/uL Lymphocytes # 0.5 L (1.0-4.8) k/uL Sodium (137-145) mmol/L BUN (9-20) mg/dL Glucose (74-99) mg/dL POC Glucose (mg/dL) 145 H 143 H (70-110) mg/dL Calcium (8.4-10.2) mg/dL AST (17-59) U/L ALT (4-49) U/L Total Protein (6.3-8.2) g/dL Albumin (3.5-5.0) g/dL 07/30/23 07/31/23 07/31/23 Range/Units 19:49 04:45 04:45 RBC 2.28 L (4.30-5.90) m/uL Hgb 7.2 L (13.0-17.5) gm/dL Hct 21.4 L (39.0-53.0) % RDW 16.7 H (11.5-15.5) % Plt Count 120 L (150-450) k/uL Lymphocytes # 0.5 L (1.0-4.8) k/uL Sodium 128 L (137-145) mmol/L BUN 29 H (9-20) mg/dL Glucose 104 H (74-99) mg/dL POC Glucose (mg/dL) 130 H (70-110) mg/dL Calcium 7.7 L (8.4-10.2) mg/dL AST 240 H (17-59) U/L ALT 127 H (4-49) U/L Total Protein 4.6 L (6.3-8.2) g/dL Albumin 2.4 L (3.5-5.0) g/dL Microbiology - Last 24 Hours (Table) 07/30/23 07:37 Gram Stain - Preliminary Sputum 07/28/23 10:55 Gram Stain - Preliminary Pericardial Fluid Tissue Culture - Preliminary
[2023-07-31] MEDS: METOPROLOL TARTRATE 12.5 MG TAB PO SCH ×2 (09:25→22:14)
--- NOTE | 2023-07-31 10:40 | P.PN ---
Subjective Progress Note Date: 07/31/23 Principal diagnosis: Coronary artery disease. The patient is seen today 07/22/2023 in follow-up on the selective care unit. He is currently sitting up in bed. Awake and alert in no acute distress. He is maintaining O2 saturations in the 90s on 3 L/m per nasal cannula. He is pulling approximately 1200 ML's on his incentive spirometer. He continues to be worked up for possible bypass surgery along with mitral valve and tricuspid valve repairs. FEV1 value was 1.26 or 54% of predicted. NicoDerm patch remains in place. The patient is seen today 07/23/2023 in follow-up on the selective care unit. He is currently sitting up in a chair at the bedside. Awake and alert in no acute distress. Denies any worsening shortness of breath cough or congestion. Denies any chest pain. He is maintaining good O2 saturations up to 97% on room air. Afebrile. Sodium 135. Potassium 3.7. Bicarb 27. BUN 22. Creatinine 0.90. NicoDerm patch in place. The patient is seen today 07/24/2023 in follow-up on the selective care unit. Awake and alert in no acute distress. Sitting in bed. Denies any chest pain. No palpitations. No worsening shortness of breath or cough. He did have a nightmare and some confusion last evening. Oriented 3 today. Maintaining O2 saturations in the 90s on 2 L/m per nasal cannula. He is afebrile. Hemodynamically stable. NicoDerm patch in place. The patient is seen today 07/25/2023 in follow-up on the selective care unit. He is ambulating in his room. Awake and alert in no acute distress. Denies any chest pain. Denies any worsening shortness of breath, cough or congestion. He is maintaining good O2 saturations in the 90s on 2 L/m per nasal cannula. Afebrile. Hemodynamically stable. Sodium 134. Potassium 4.3. Bicarb 28. BUN 19. Creatinine 0.87. Glucose 113. NicoDerm patch remains in place. Progress note dated 07/26/2023. The patient is seen today in room 356. The patient is scheduled to have bypass grafting, on July 27. Currently he is on 2 L of oxygen. No IV fluids. He is sitting at the bedside. White count 5.4, hemoglobin 10.4, hematocrit 30.9, with a normal platelet count. Sodium 132, potassium 4.3, chlorides 98, CO2 29, BUN 21, creatinine 0.85. Chest x-ray shows changes of COPD, with mild interstitial pulmonary edema. Progress note dated 07/27/2023. The patient was seen this morning in room 356. The patient is scheduled to have open-heart surgery today, 07/27/2023. He is currently on 2 L of oxygen. Lab data today includes a glucose of 121. Lab data from July 26 have been re viewed. X-rays, medications, and other information has also been reviewed. Previous chest x-ray shows changes of COPD, with mild interstitial pulmonary edema. Progress note dated 07/28/2023. The patient is postop day #1, status post three-vessel bypass grafting, mitral valve repair, tricuspid valve repair, and exclusion of the left atrial appendage. The patient's currently been extubated to 4 L of oxygen. He was extubated on July 27, at nighttime. He is getting saline at 50 mL an hour, and an insulin drip at 2.5 units an hour. The patient is very anxious and received some benzodiazepine. White count 6.9, hemoglobin 7.2, hematocrit 20.9, and a platelet count of 50,000. Sodium 135, potassium 4.6, chlorides 105, CO2 26, BUN 23, and creatinine 0.94. Chest x-ray shows some mild pulmonary vascular congestion, and some basilar atelectasis. The endotracheal tube has been removed. Progress note dated 07/29/2023. This patient is seen today in room 266. He's postoperative day #2, status post three-vessel bypass grafting, mitral and tricuspid valve repair, and exclusion of the left atrial appendage. Patient is currently on 4 L of oxygen. He is getting saline at 20 mL an hour. He will get 1 unit of packed red blood cells today. White count is 9, 11 6.9, hematocrit 20.4, and platelet count 82,000. Sodium 132, potassium 4.3, chlorides 104, CO2 25, BUN 23, and creatinine 0.82. Albumin is 2.7. Chest x-ray shows some airspace opacities at the right lung base. There is also some infiltrate or atelectasis at the left lung base. Progress note dated 07/30/2023. The patient is again seen today in room 266. He's postoperative day #3, status post three-vessel bypass grafting, mitral and tricuspid valve repair, and exclusion of left atrial appendage. Currently, the patient's sitting upright in the chair. He is on 2 L of oxygen. He continues on amiodarone at 0.5 mg/m. He is also getting saline at 20 mL an hour. According to the nurse, he had a pretty stable and uneventful night. White count 8.1, he will been 7.7, hematocrit 22.1, and platelet count 92,000. Sodium 130, potassium 4.5, chlorides 102, CO2 26, BUN 24, and creatinine 0.74. AST is 248. ALT is 79. Chest x-ray in my opinion show some cardiomegaly, and mild increased vascular congestion. Progress note dated 07/31/2023. 73-year-old male, seen in room 266. He has postoperative day #4, status post three-vessel bypass grafting, mitral repair, tricuspid valve repair, and exclusion of left atrial appendage. The patient is currently on 2 L of oxygen. He is getting saline at 20 mL an hour. He sitting in a chair next to his bed. He is getting about 750 mL on his incentive spirometer. White count of 6.3, hemoglobin 7.2, hematocrit 21.4, with platelet count of 120,000. Sodium 128, p otassium 4, chloride 98, CO2 24, BUN 29, and creatinine 0.81. AST is 240, with an ALT of 127. Chest x-ray show some bibasilar atelectasis, tiny effusions, some postoperative changes. Objective - Vital Signs Vital signs: Vital Signs Temp 97.8 F 07/31/23 08:00 Pulse 57 L 07/31/23 10:00 Resp 23 07/31/23 10:00 BP 131/75 07/31/23 10:00 Pulse Ox 94 L 07/31/23 10:00 FiO2 50 07/27/23 22:02 Intake & Output 07/30/23 07/31/23 07/31/23 18:59 06:59 18:59 Intake Total 412 588 158 Output Total 818 505 250 Balance -406 83 -92 Weight 76.9 kg Intake: IV 312 338 58 Pressure bags (0.9 Sodium 72 78 18 Chloride) Sodium Chloride 0.9% 1, 240 260 40 000 ml @ 20 mls/hr IV . Q24H [facility] Rx#:[id number] Intake, IV Titration 100 Amount Calcium Gluconate in NaCl 100 2 gm In Saline 1 100ml. bag @ 100 mls/hr IVPB ONCE ONE Rx#:[id number] Oral 100 250 Output: Chest Tube Drainage 0 L. plurel 0 Urine 778 505 250 Stool 40 Other: Voiding Method Indwelling Catheter Indwelling Catheter Urinal # Bowel Movements 1 ABP, PAP, CO, CI - Last Documented Arterial Blood Pressure 95/32 Pulmonary Artery Pressure 52/14 Cardiac Output 4 Cardiac Index 2.2 - Exam No acute distress, oriented 3. Currently on 2 L of oxygen. Saturations are 94%. HEENT examination is grossly unremarkable. Mucous membranes are moist. No oral lesions. Neck supple. Full range of motion. No adenopathy thyromegaly or neck vein distention. Cardiovascular examination reveals regular rhythm rate. S1-S2 normal. No S3 or S4. No discernible murmur noted. Heart rate 84 bpm. Lungs reveal minimal bibasilar crackles. No wheezes or rhonchi. Breath sounds are equal bilaterally. Abdomen soft bowel sounds are heard. No masses or tenderness. Extremities are intact. No cyanosis clubbing or edema. Skin is without rash or lesion. Neurologic examination is brief but nonfocal. - Labs CBC & Chem 7: 07/31/23 04:45 07/31/23 04:45 Labs: Abnormal Lab Results - Last 24 Hours (Table) 07/30/23 07/30/23 07/30/23 Range/Units 11:51 18:00 18:52 RBC 2.44 L (4.30-5.90) m/uL Hgb 7.7 L (13.0-17.5) gm/dL Hct 22.6 L (39.0-53.0) % RDW 16.1 H (11.5-15.5) % Plt Count 121 L (150-450) k/uL Lymphocytes # 0.5 L (1.0-4.8) k/uL Sodium (137-145) mmol/L BUN (9-20) mg/dL Glucose (74-99) mg/dL POC Glucose (mg/dL) 145 H 143 H (70-110) mg/dL Calcium (8.4-10.2) mg/dL AST (17-59) U/L ALT (4-49) U/L Total Protein (6.3-8.2) g/dL Albumin (3.5-5.0) g/dL 07/30/23 07/31/23 07/31/23 Range/Units 19:49 04:45 04:45 RBC 2.28 L (4.30-5.90) m/uL Hgb 7.2 L (13.0-17.5) gm/dL Hct 21.4 L (39.0-53.0) % RDW 16.7 H (11.5-15.5) % Plt Count 120 L (150-450) k/uL Lymphocytes # 0.5 L (1.0-4.8) k/uL Sodium 128 L (137-145) mmol/L BUN 29 H (9-20) mg/dL Glucose 104 H (74-99) mg/dL POC Glucose (mg/dL) 130 H (70-110) mg/dL Calcium 7.7 L (8.4-10.2) mg/dL AST 240 H (17-59) U/L ALT 127 H (4-49) U/L Total Protein 4.6 L (6.3-8.2) g/dL Albumin 2.4 L (3.5-5.0) g/dL Microbiology - Last 24 Hours (Table) 07/30/23 07:37 Gram Stain - Preliminary Sputum 07/28/23 10:55 Gram Stain - Preliminary Pericardial Fluid Tissue Culture - Preliminary Assessment and Plan Assessment: Postop day #4, status post three-vessel bypass grafting, mitral valve repair, tricuspid valve repair, and exclusion of the left atrial appendage. Routine postoperative ventilator management, with extubation, on July 27. Multi-vessel coronary artery disease and severe mitral regurgitation, being considered for open heart surgery with surgical revascularization and mitral valve replacement, however, the patient does want to proceed with this option. Surgery is planned for 07/27/2023. Exertional dyspnea, likely secondary to above. CTA of the chest was completed for PE protocol which demonstrated no diagnostic evidence of pulmonary embolism, COPD like changes, pulmonary fibrosis, trace bilateral pleural effusions, groundglass changes, posssibly mild venous congestion correlate for mild CHF exacerbation. Benign essential hypertension. Hyperlipidemia. Abdominal aortic aneurysm, measuring 3.3 cm incidentally found on chest CTA. GERD. Chronic and ongoing nicotine dependence. Plan: Plan dated 07/26/2023. The patient is advised, about the importance of using the incentive spirometer. We also but the patient know what our role in this, as pulmonary/critical care physician, after open heart surgery. We explained to him, that our first goal is to get him extricated or liberated from mechanical ventilation. Secondly, we work with the patient throughout his hospitalization, to assure that he does not develop pneumonia, pleural effusion, atelectasis, or lobar collapse. We will continue to follow the patient, and make recommendations along the way. Plan dated 07/27/2023. The patient is scheduled to have open-heart surgery today. He was currently on 2 L prior to surgery. Obviously, he will be coming back to the intensive care unit, on the mechanical ventilator. Yesterday, we explained to the patient, that are goal is to get the patient extricated or liberated from mechanical ventilation as soon as possible, and secondly, evaluate the patient's lungs on a daily patient, to prevent, collapse, atelectasis, pleural effusion, or pneumonia. Additional recommendations and suggestions are forthcoming. Plan dated 07/28/2023. The patient is seen in room 266, in the intensive care unit. He sitting in the chair, next to his bed. He is currently on 4 L of oxygen by nasal cannula. He is getting saline at 50 mL an hour, and an insulin drip at 2.5 units an hour. The patient is postop day #1, status post three-vessel bypass grafting, mitral valve repair, tricuspid valve repair, and exclusion of left atrial appendage. Labs, x-rays, and medications are reviewed. We will continue to follow, and make recommendations along the way. Chest x-ray shows primarily postoperative changes. Prognosis is guarded. Plan dated 07/29/2023. The patient is seen today in room 266. He remains on oxygen at 4 L. He is getting saline at 20 mL an hour. It's 0.9, the patient will get 1 unit of packed red blood cells. Labs, x-rays, and medications are all reviewed. The patient appears be doing relatively well. We encourage deep breathing, coughing, and clearing of secretions. We also encouraged him to use the i ncentive spirometer, every hour. Plan dated 07/30/2023. The patient is seen today in room 266. He continues on oxygen at 2 L. In addition, the patient is getting saline IV, at KVO, and amiodarone at 0.5 mg/m. Today's postop day #3. We encourage deep breathing, coughing, clearing of secretions. Chest x-rays reviewed. It shows some mild pulmonary vascular congestion. We also recommend, hourly use of the incentive spirometer. Plan dated 07/31/2023. The patient is seen today in room 266. He's on 2 L of oxygen. He sitting at bedside. The patient states that he is not feeling well. When asked to describe his feelings, specifically, he can't really elaborate as to what he is feeling. He apparently does feel a bit tired. No shortness of breath. No chest pain or chest discomfort. He is not doing as well, on his incentive spirometer, so I encouraged her nurse, to encourage the patient. Labs, x-rays, and medications are reviewed. Prognosis is guarded. Time with Patient: Greater than 30
--- NOTE | 2023-07-31 11:12 | XR ---
EXAMINATION TYPE: XR chest 1V portable DATE OF EXAM: 07/31/2023 COMPARISON: 08/09/2023 INDICATION: Post cardiac surgery TECHNIQUE: Single frontal view of the chest is obtained. FINDINGS: The heart size is mildly prominent. Sternotomy wires are present from prior CABG.. The pulmonary vasculature is prominent. Diffuse mild increased lung markings are present greater in the right upper lobe. Some milder increas ed uptake may be within the left lower lobe. Correlate for atypical pulmonary edema. Atelectasis and pneumonia could be considered within the differential. IMPRESSION: 1. Cardiomegaly with prominent pulmonary vascular markings. Diffuse increased lung markings are prese nt greater in the right upper lobe and left lower lobe. Correlate for atypical pulmonary edema, pneum onia and atelectasis.
[2023-07-31] MEDS: ACETAMINOPHEN TAB 325 MG TAB PO PRN ×2 (11:19→18:17)
[2023-07-31] MEDS: ASCORBIC ACID 500 MG TAB PO SCH (12:13)
[2023-07-31] MEDS: LOSARTAN 25 MG TAB PO SCH (12:13)
[2023-07-31] MEDS: FERROUS SULFATE 325 MG TAB PO SCH (12:14)
[2023-07-31 12:40] LABS: Glucose,Whole Blood 130 mg/dL (70-110)
[2023-07-31 16:44] LABS: Glucose,Whole Blood 141 mg/dL (70-110)
[2023-07-31] MEDS: SODIUM CHLORIDE 0.9% 1,000 ML IV SCH (19:38)
[2023-07-31] MEDS: ATORVASTATIN 40 MG TAB PO SCH (19:47)
[2023-07-31] MEDS: MELATONIN 3 MG TABLET PO PRN (20:56)
[2023-07-31 21:20] LABS: Glucose,Whole Blood 138 mg/dL (70-110)
--- NOTE | 2023-08-01 04:28 | PN ---
PROGRESS NOTE DATE OF SERVICE: 07/31/2023 SUBJECTIVE: This is a 73-year-old gentleman, who was admitted with triple-vessel disease, CAD, CABG, is being closely monitored at this time. The patient had insomnia. The most recent chest x-ray, which I reviewed personally shows some increased bronchovascular markings. OBJECTIVE: VITAL SIGNS: Pulse is 56, blood pressure 125/89, respirations 27. CHEST: A few scattered rhonchi. ABDOMEN: Soft. NERVOUS SYSTEM: Nonfocal. LABORATORY DATA: Hemoglobin 7.2. The rest of the labs are noted. AST, ALT noted. ASSESSMENT: 1. Triple-vessel coronary artery disease, status post coronary artery bypass graft. 2. Acute hypoxic respiratory failure. 3. Gastroesophageal reflux disease. 4. Hyperlipidemia. 5. Multiple medical issues. RECOMMENDATIONS: Recommend to continue current management and continue symptomatic treatment. Ensure oxygenation. Otherwise, monitor fluid electrolyte balance closely. Closely follow with multiple consultants. Further recommendations to follow. MMODL / IJN: [id number] /
[2023-08-01] MEDS: SENNOSIDES-DOCUSATE SODIUM 1 EACH TAB PO SCH ×2 (05:14→20:04)
[2023-08-01 05:24] LABS: ALT 213 U/L (4-49); AST 431 U/L (17-59); African American GFR (CKD) >90 (>60 ml/min/1.73 sqM); Albumin 2.6 g/dL (3.5-5.0); Alkaline Phosphatase 79 U/L (38-126); Anion Gap 6 mmol/L; Anisocytosis Slight; Blood Urea Nitrogen 28 mg/dL (9-20); Calcium 7.9 mg/dL (8.4-10.2); Carbon Dioxide 23 mmol/L (22-30); Chloride 100 mmol/L (98-107); Glucose 132 mg/dL (74-99); HGB 8.1 gm/dL (13.0-17.5); MCH 31.6 pg (25.0-35.0); MCHC 33.9 g/dL (31.0-37.0); MCV 93.2 fL (80.0-100.0); Mean Platelet Volume 9.3; Non-African American GFR(CKD) 88 (>60 ml/min/1.73 sqM); Poikilocytosis Slight; RBC 2.58 m/uL (4.30-5.90); RDW 17.7 % (11.5-15.5); Sodium 129 mmol/L (137-145); Total Bilirubin 1.8 mg/dL (0.2-1.3); WBC 9.7 k/uL (3.8-10.6)
[2023-08-01 05:29] LABS: Platelet Count 199 k/uL (150-450)
[2023-08-01] MEDS: INSULIN ASPART (NovoLOG) 100 UNIT/ML VIAL SQ SCH ×4 (05:34→20:11)
[2023-08-01] MEDS ORDERED: FUROSEMIDE 10 MG/ML 2 ML VIAL IV ONE (07:20)
--- NOTE | 2023-08-01 07:29 | XR ---
EXAMINATION TYPE: XR chest 1V portable DATE OF EXAM: 08/01/2023 COMPARISON: 07/31/2023 HISTORY: Status post cardiac surgery FINDINGS: Right IJ sheath is in place. Left atrial appendage clip is noted. Sternotomy wires are in place. Ther e is no evidence for sizable pneumothorax. Persistent patchy infiltrate right upper lobe as well as left medial lung base which may reflect area s of infiltrate or atelectasis. Curly B lines within the periphery of the left lower lobe. Pulmonary venous congestion. Stable appearance of the cardio-mediastinal structures at this time. Pleural effusion unchanged. IMPRESSION: 1. Stable portable chest. Clinical correlation and follow up until resolution is recommended.
[2023-08-01] MEDS: IPRATROPIUM-ALBUTEROL 3 ML NEB INHALATION SCH ×4 (08:12→20:04)
--- NOTE | 2023-08-01 08:45 | P.PN ---
Subjective Progress Note Date: 08/01/23 Principal diagnosis: Severe diffuse calcific triple-vessel coronary artery disease with chronically occluded RCA and first OM, unstable angina, severe mitral valve regurgitation wi th prolapse of P2 with ruptured chord, moderate tricuspid valve regurgitation with severe pulmonary hypertension. History of hypertension, hyperlipidemia, abdominal aortic aneurysm with calcification of the posterior aspect of the ascending aorta, chronic ongoing tobacco dependence, moderate restrictive lung disease, GERD, depression POD #5 triple-vessel coronary artery bypass grafting using the left internal mammary artery to the left anterior descending artery, reverse saphenous vein graft from the aorta to the first obtuse marginal artery, reverse saphenous vein graft from the aorta to the posterior descending artery, complex mitral valve repair with construction of two pairs of NeoChords to P2 and posterior ring annuloplasty using a 34 mm AnnuloFlex ring, tricuspid valve repair using a 28 mm MC3 ring, exclusion of the left atrial appendage using a 40 mm AtriClip, endoscopic harvesting of the left greater saphenous vein, intraoperative graft flow measurements using the [employer] system, intraoperative transesophageal echocardiogram and epiaortic scanning Postoperative acute blood loss anemia and thrombocytopenia, expected given hemodilution and cardiopulmonary bypass pump Paroxysmal atrial fibrillation, known common occurrence after open heart surgery, not a complication Elevated transaminases, likely medication induced The patient was seen and examined this morning sitting up in a recliner in no acute distress. Currently controlled afib with occasional paced rhythm. Amio stopped yesterday due to asha/elevated transaminases, no lopressor given due to bradycardia. Patient does complain of some post surgical pain, denies shortness of breath. Chest x-ray, labs reviewed. Liver enzymes more elevated today, hgb stable. Currently on 2 L nasal cannula with oxygen saturation in the mid 90s, able to achieve 750-1000 mL on his incentive spirometry. Right radial arterial line remains present. Patient ambulated a complete lap around the hallway yesterday with assist. Objective - Vital Signs Vital signs: Vital Signs Temp 97.9 F 08/01/23 04:00 Pulse 80 08/01/23 08:22 Resp 23 08/01/23 07:00 BP 142/54 08/01/23 07:00 Pulse Ox 98 08/01/23 08:12 FiO2 50 07/27/23 22:02 Intake & Output 07/31/23 08/01/23 08/01/23 18:59 06:59 18:59 Intake Total 551 549 Output Total 575 650 Balance -24 - Weight 76.9 kg Intake: IV 251 299 Pressure bags (0.9 Sodium 51 39 Chloride) Sodium Chloride 0.9% 1, 200 260 000 ml @ 20 mls/hr IV . Q24H [facility] Rx#:[id number] Intake, IV Titration 100 Amount Calcium Gluconate in NaCl 100 2 gm In Saline 1 100ml. bag @ 100 mls/hr IVPB ONCE ONE Rx#:[id number] Oral 200 250 Output: Urine 575 650 Other: Voiding Method Urinal Urinal # Bowel Movements 1 ABP, PAP, CO, CI - Last Documented Arterial Blood Pressure 103/56 Pulmonary Artery Pressure 52/14 Cardiac Output 4 Cardiac Index 2.2 - Exam CONSTITUTIONAL: Cooperative, no acute distress RESPIRATORY: Lungs sounds diminished bilaterally. Respirations even, nonlabored. Currently on 2 L nasal cannula with oxygen saturation 93%. Able to achieve 750-1000 mL on incentive spirometry. Strong loose cough. CARDIOVASCULAR: S1, S2 present. Regular rate and rhythm, atrially paced at 60 BPM, underlying junctional rhythm in the 40s on telemetry. Sternum stable. Palpable peripheral pulses bilaterally. No edema present. No calf pain or tenderness noted. Heart hugger in place with patient demonstrating appropriate use. Antiembolism stockings, SCDs present. GASTROINTESTINAL: Abdomen soft, nontender, nondistended. Active bowel sounds present 4 quadrants. Tolerating diet. Positive bowel movement 07/31/23 GENITOURINARY: Napoles discontinued yesterday, patient continues to void clear yellow urine. Output 1225 mL the last 24 hours INTEGUMENTARY: Skin is warm and dry with evidence of good perfusion. Anterior chest incision well approximated and covered with dry intact dressing. Left lower extremity EVH site well approximated NEUROLOGIC: Cranial nerves II through XII intact MUSKULOSKELETAL: Able to move all extremities, strength equal bilaterally, gait normal PSYCHIATRIC: Alert and oriented to person place and time, intact judgment and insight INVASIVE LINES AND TUBES: A/V epicardial pacemaker wires present, connected to generator, AAI mode with backup rate 50 bpm. Right radial arterial line present - Allied health notes Allied health notes reviewed: nursing - Labs CBC & Chem 7: 08/01/23 05:00 08/01/23 05:00 Labs: Abnormal Lab Results - Last 24 Hours (Table) 0907/31/23 07/31/23 Range/Units 12:39 16:41 21:19 RBC (4.30-5.90) m/uL Hgb (13.0-17.5) gm/dL Hct (39.0-53.0) % RDW (11.5-15.5) % Sodium (137-145) mmol/L BUN (9-20) mg/dL Glucose (74-99) mg/dL POC Glucose (mg/dL) 130 H 141 H 138 H (70-110) mg/dL Calcium (8.4-10.2) mg/dL Total Bilirubin (0.2-1.3) mg/dL AST (17-59) U/L ALT (4-49) U/L Total Protein (6.3-8.2) g/dL Albumin (3.5-5.0) g/dL 08/01/23 08/01/23 Range/Units 05:00 05:00 RBC 2.58 L (4.30-5.90) m/uL Hgb 8.1 L (13.0-17.5) gm/dL Hct 24.0 L (39.0-53.0) % RDW 17.7 H (11.5-15.5) % Sodium 129 L (137-145) mmol/L BUN 28 H (9-20) mg/dL Glucose 132 H (74-99) mg/dL POC Glucose (mg/dL) (70-110) mg/dL Calcium 7.9 L (8.4-10.2) mg/dL Total Bilirubin 1.8 H (0.2-1.3) mg/dL AST 431 H (17-59) U/L ALT 213 H (4-49) U/L Total Protein 5.0 L (6.3-8.2) g/dL Albumin 2.6 L (3.5-5.0) g/dL Microbiology - Last 24 Hours (Table) 07/28/23 10:55 Gram Stain - Preliminary Pericardial Fluid Tissue Culture - Preliminary 07/30/23 07:37 Gram Stain - Preliminary Sputum Sputum Culture - Preliminary - Imaging and Cardiology Chest x-ray: report reviewed, image reviewed Assessment and Plan Assessment: Severe diffuse calcific triple-vessel coronary artery disease with chronically occluded RCA and first OM, unstable angina, status post 3V CABG Severe mitral valve regurgitation with prolapse of P2 with ruptured chord, status post complex mitral valve repair Moderate tricuspid valve regurgitation with severe pulmonary hypertension, status post tricuspid valve repair History of hypertension Hyperlipidemia, treated, cholesterol 121, LDL 60.5treated Abdominal aortic aneurysm with calcification of the posterior aspect of the ascending aorta Chronic ongoing tobacco dependence Moderate restrictive lung disease, preoperative FEV1 54% of predicted GERD Depression Postoperative acute blood loss anemia and thrombocytopenia, expected Paroxysmal atrial fibrillation Elevated transaminases Plan: Continue to optimize medical management with low dose aspirin, plavix, and beta yamile with hold parameters. Continue low dose ARB for afterload reduction with hold parameters. Statin discontinued today due to elevated transaminases Amiodarone discontinued yesterday. No anticoagulation until all lines/tubes have been discontinued Keep epicardial pacer wire connected to generator with backup rate Wean oxygen as tolerated. Encourage incentive spirometry 10 x every hour while awake. Bronchodilators per pulmonology Increase activity as tolerated. PT/OT/cardiac rehab consulted Will monitor daily labs and CXR. Electrolyte replacement per protocol. HIT panel still pending. Will give IV Lasix GI/DVT prophylaxis Pain control with current medication regimen Insulin management per internal medicine, patient is not diabetic with preoperative HgbA1c 5.8%, but needs tight blood sugar control to prevent infection Continue to record strict accurate I/Os Daily weights Smoking cessation counseling and education provided More recommendations to follow based on patient's progress
[2023-08-01] MEDS: FONDAPARINUX 2.5 MG/0.5 ML SYRINGE SQ SCH (08:50)
[2023-08-01] MEDS: CITALOPRAM HYDROBROMIDE 20 MG TAB PO SCH (08:53)
[2023-08-01] MEDS: CLOPIDOGREL 75 MG TAB PO SCH (08:53)
[2023-08-01] MEDS: ASPIRIN 81 MG PO SCH (08:53)
[2023-08-01] MEDS: CHOLECALCIFEROL 25 MCG (1000 IU) TABLET PO SCH (08:53)
[2023-08-01] MEDS: PANTOPRAZOLE 40 MG/10 ML VIAL IVP SCH ×2 (08:53→20:04)
[2023-08-01] MEDS: METOPROLOL TARTRATE 12.5 MG TAB PO SCH ×2 (08:54→20:11)
[2023-08-01] MEDS: NICOTINE 14MG/24HR PATCH TRANSDERM SCH (09:12)
--- NOTE | 2023-08-01 09:55 | P.PN ---
Subjective Progress Note Date: 08/01/23 The patient is seen today 07/22/2023 in follow-up on the selective care unit. He is currently sitting up in bed. Awake and alert in no acute distress. He is maintaining O2 saturations in the 90s on 3 L/m per nasal cannula. He is pulling approximately 1200 ML's on his incentive spirometer. He continues to be worked up for possible bypass surgery along with mitral valve and tricuspid valve repairs. FEV1 value was 1.26 or 54% of predicted. NicoDerm patch remains in place. The patient is seen today 07/23/2023 in follow-up on the selective care unit. He is currently sitting up in a chair at the bedside. Awake and alert in no acute distress. Denies any worsening shortness of breath cough or congestion. Denies any chest pain. He is maintaining good O2 saturations up to 97% on room air. Afebrile. Sodium 135. Potassium 3.7. Bicarb 27. BUN 22. Creatinine 0.90. NicoDerm patch in place. The patient is seen today 07/24/2023 in follow-up on the selective care unit. Awake and alert in no acute distress. Sitting in bed. Denies any chest pain. No palpitations. No worsening shortness of breath or cough. He did have a nightmare and some confusion last evening. Oriented 3 today. Maintaining O2 saturations in the 90s on 2 L/m per nasal cannula. He is afebrile. Hemodynamically stable. NicoDerm patch in place. The patient is seen today 07/25/2023 in follow-up on the selective care unit. He is ambulating in his room. Awake and alert in no acute distress. Denies any chest pain. Denies any worsening shortness of breath, cough or congestion. He is maintaining good O2 saturations in the 90s on 2 L/m per nasal cannula. Afebrile. Hemodynamically stable. Sodium 134. Potassium 4.3. Bicarb 28. BUN 19. Creatinine 0.87. Glucose 113. NicoDerm patch remains in place. Progress note dated 07/26/2023. The patient is seen today in room 356. The patient is scheduled to have bypass grafting, on July 27. Currently he is on 2 L of oxygen. No IV fluids. He is sitting at the bedside. White count 5.4, hemoglobin 10.4, hematocrit 30.9, with a normal platelet count. Sodium 132, potassium 4.3, chlorides 98, CO2 29, BUN 21, creatinine 0.85. Chest x-ray shows changes of COPD, with mild interstitial pulmonary edema. Progress note dated 07/27/2023. The patient was seen this morning in room 356. The patient is scheduled to have open-heart surgery today, 07/27/2023. He is currently on 2 L of oxygen. Lab data today includes a glucose of 121. Lab data from July 26 have been reviewed. X-rays, medications, and other information has also been reviewed. Previous chest x-ray shows changes of COPD, with mild interstitial pulmonary edema. Progress note dated 07/28/2023. The patient is postop day #1, status post three-vessel bypass grafting, mitral valve repair, tricuspid valve repair, and exclusion of the left atrial appendage. The patient's currently been extubated to 4 L of oxygen. He was extubated on July 27, at nighttime. He is getting saline at 50 mL an hour, and an insulin drip at 2.5 units an hour. The patient is very anxious and received some benzodiazepine. White count 6.9, hemoglobin 7.2, hematocrit 20.9, and a platelet count of 50,000. Sodium 135, potassium 4.6, chlorides 105, CO2 26, BUN 23, and creatinine 0.94. Chest x-ray shows some mild pulmonary vascular congestion, and some basilar atelectasis. The endotracheal tube has been removed. Progress note dated 07/29/2023. This patient is seen today in room 266. He's postoperative day #2, status post three-vessel bypass grafting, mitral and tricuspid valve repair, and exclusion of the left atrial appendage. Patient is currently on 4 L of oxygen. He is g etting saline at 20 mL an hour. He will get 1 unit of packed red blood cells today. White count is 9, 11 6.9, hematocrit 20.4, and platelet count 82,000. Sodium 132, potassium 4.3, chlorides 104, CO2 25, BUN 23, and creatinine 0.82. Albumin is 2.7. Chest x-ray shows some airspace opacities at the right lung base. There is also some infiltrate or atelectasis at the left lung base. Progress note dated 07/30/2023. The patient is again seen today in room 266. He's postoperative day #3, status post three-vessel bypass grafting, mitral and tricuspid valve repair, and exclusion of left atrial appendage. Currently, the patient's sitting upright in the chair. He is on 2 L of oxygen. He continues on amiodarone at 0.5 mg/m. He is also getting saline at 20 mL an hour. According to the nurse, he had a pretty stable and uneventful night. White count 8.1, he will been 7.7, hematocrit 22.1, and platelet count 92,000. Sodium 130, potassium 4.5, chlorides 102, CO2 26, BUN 24, and creatinine 0.74. AST is 248. ALT is 79. Chest x-ray in my opinion show some cardiomegaly, and mild increased vascular congestion. Progress note dated 07/31/2023. 73-year-old male, seen in room 266. He has postoperative day #4, status post three-vessel bypass grafting, mitral repair, tricuspid valve repair, and exclusion of left atrial appendage. The patient is currently on 2 L of oxygen. He is getting saline at 20 mL an hour. He sitting in a chair next to his bed. He is getting about 750 mL on his incentive spirometer. White count of 6.3, hemoglobin 7.2, hematocrit 21.4, with platelet count of 120,000. Sodium 128, potassium 4, chloride 98, CO2 24, BUN 29, and creatinine 0.81. AST is 240, with an ALT of 127. Chest x-ray show some bibasilar atelectasis, tiny effusions, some postoperative changes. On today's evaluation of 08/01/2023, the patient is doing well on 2 L of oxygen by nasal cannula. His postoperative day #4. Hemodynamically stable. Cardiac rhythm is paced with an underlying junctional rhythm.. Using incentive spirometer. The patient had a follow-up chest x-ray today that shows cardiomegaly. There is some pulmonary vascular congestion and he was given 20 mg of IV Lasix today. He still has some patchy bilateral pulmonary infiltrates more so in the right upper lobe. His white cell count is at 9.7, hemoglobin is at 8.4, and sodium is at 129, potassium is at 4, BUN is at 28 with a creatinine of 0.8. LFTs are slightly abnormal with an AST of 431 and ALT of 231. Lipitor was accordingly placed on hold. He remains on aspirin. He remains on Plavix. He remains off metoprolol because of his underlying junctional cardiac rhythm. Anticoagulations with Arixtra 2.5 mg subcu once a day. No other significant events overnight. Neurologically intact. Communicating. Tolerating his diet. He had adequate bowel movements. Noted the patient had severe diffuse calcified triple-vessel coronary artery disease with severe mitral regurgitation and prolapse of P2 with a ruptured cord and tricuspid regurgitation with severe pulmonary hypertension. He underwent three-vessel bypass surgery and mitral valve repair and tricuspid valve repair. Objective - Vital Signs Vital signs: Vital Signs Temp 97.9 F 08/01/23 04:00 Pulse 67 08/01/23 09:00 Resp 24 08/01/23 09:00 BP 135/67 08/01/23 09:00 Pulse Ox 95 08/01/23 09:00 FiO2 50 07/27/23 22:02 Intake & Output 07/31/23 08/01/23 08/01/23 18:59 06:59 18:59 Intake Total 551 549 164 Output Total 575 650 185 Balance - - - Weight 76.9 kg Intake: IV 251 299 46 Pressure bags (0.9 Sodium 51 39 6 Chloride) Sodium Chloride 0.9% 1, 200 260 40 000 ml @ 20 mls/hr IV . Q24H [facility] Rx#:[id number] Intake, IV Titration 100 Amount Calcium Gluconate in NaCl 100 2 gm In Saline 1 100ml. bag @ 100 mls/hr IVPB ONCE ONE Rx#:[id number] Oral 200 250 118 Output: Urine 575 650 185 Other: Voiding Method Urinal Urinal # Voids 1 # Bowel Movements 1 ABP, PAP, CO, CI - Last Documented Arterial Blood Pressure 103/56 Pulmonary Artery Pressure 52/14 Cardiac Output 4 Cardiac Index 2.2 - Labs CBC & Chem 7: 08/01/23 05:00 08/01/23 05:00 Labs: Abnormal Lab Results - Last 24 Hours (Table) 07/31/23 07/31/23 07/31/23 Range/Units 12:39 16:41 21:19 RBC (4.30-5.90) m/uL Hgb (13.0-17.5) gm/dL Hct (39.0-53.0) % RDW (11.5-15.5) % Sodium (137-145) mmol/L BUN (9-20) mg/dL Glucose (74-99) mg/dL POC Glucose (mg/dL) 130 H 141 H 138 H (70-110) mg/dL Calcium (8.4-10.2) mg/dL Total Bilirubin (0.2-1.3) mg/dL AST (17-59) U/L ALT (4-49) U/L Total Protein (6.3-8.2) g/dL Albumin (3.5-5.0) g/dL 08/01/23 08/01/23 Range/Units 05:00 05:00 RBC 2.58 L (4.30-5.90) m/uL Hgb 8.1 L (13.0-17.5) gm/dL Hct 24.0 L (39.0-53.0) % RDW 17.7 H (11.5-15.5) % Sodium 129 L (137-145) mmol/L BUN 28 H (9-20) mg/dL Glucose 132 H (74-99) mg/dL POC Glucose (mg/dL) (70-110) mg/dL Calcium 7.9 L (8.4-10.2) mg/dL Total Bilirubin 1.8 H (0.2-1.3) mg/dL AST 431 H (17-59) U/L ALT 213 H (4-49) U/L Total Protein 5.0 L (6.3-8.2) g/dL Albumin 2.6 L (3.5-5.0) g/dL Microbiology - Last 24 Hours (Table) 07/30/23 07:37 Gram Stain - Final Sputum Sputum Culture - Final 07/28/23 10:55 Gram Stain - Preliminary Pericardial Fluid Tissue Culture - Preliminary Assessment and Plan Plan: Postop day #4, status post three-vessel bypass grafting, mitral valve repair, tricuspid valve repair, and exclusion of the left atrial appendage. Patient also status post mitral valve and tricuspid valve repair. Routine postoperative ventilator management, with extubation, on July 27. The patient is currently on oxygen at 2 L/m nasal cannula. All of the chest tubes are removed. Multi-vessel coronary artery disease and severe mitral regurgitation, being considered for open heart surgery with surgical revascularization and mitral valve replacement, however, the patient does want to proceed with this option. Junctional cardiac rhythm and currently the patient is a separate of 50 backup rate. He is gradually improving and is off beta blockers for now. Exertional dyspnea, likely secondary to above. CTA of the chest was completed for PE protocol which demonstrated no diagnostic evidence of pulmonary embolism, COPD like changes, pulmonary fibrosis, trace bilateral pleural effusions, groundglass changes, posssibly mild venous congestion correlate for mild CHF exacerbation. Benign essential hypertension. Hyperlipidemia. Abdominal aortic aneurysm, measuring 3.3 cm incidentally found on chest CTA. GERD. Chronic and ongoing nicotine dependence. Plan: Monitor the cardiac rhythm Continue using the senna spirometer Keep the patient off beta blockers for now Increase mobility Chest examination removed Lasix 20 mg IV 1 Blood work was noted Chest x-ray was noted We'll continue to follow
--- NOTE | 2023-08-01 10:13 | PN ---
PROGRESS NOTE SUBJECTIVE: Mr. Lucio underwent triple-vessel bypass as well as repair of mitral and tricuspid valve on July 27. He seems to be making decent progress. He is not on any pressors. Urine output is fair. He did receive some Lasix. OBJECTIVE: VITALS: Stable today. HEART: S1, S2 heard normally. There is a short systolic murmur at left sternal border and also at the apex. LUNGS: Reveal diminished air entry. His rhythm appears to be junctional and he has an underlying pacemaker, and I am asking that the low rate of the pacemaker be set to 50. On looking at the rhythm strip, he is having some episodes of sinus activity, but most of it is junctional. Blood pressure is in the 130-140 systolic. Has fair urine output. We will avoid any rate lowering agents and continue pacemaker support at a backup rate of 50 and other medications. Prognosis remains guarded. We will continue incentive spirometry, and pulmonary toilet. MMODL / IJN: [id number] /
[2023-08-01 11:41] LABS: Glucose,Whole Blood 136 mg/dL (70-110)
[2023-08-01] MEDS: ASCORBIC ACID 500 MG TAB PO SCH (12:54)
[2023-08-01] MEDS: FERROUS SULFATE 325 MG TAB PO SCH (12:54)
[2023-08-01] MEDS: LOSARTAN 25 MG TAB PO SCH (12:54)
[2023-08-01 16:15] LABS: Glucose,Whole Blood 115 mg/dL (70-110)
--- NOTE | 2023-08-01 16:47 | P.PN ---
Subjective Progress Note Date: 08/01/23 This is a 73-year-old male who presented to the emergency department with feeling of chest pain or shortness of breath. Patient reported some pressure and squeezing sensation along with a minimal cough and bloating. Patient reports he follows with Dr. Holloway in the outpatient setting with a past medical history of GERD, hyperlipidemia, hypertension, continues to smoke about 1 pack per day, has an occasional drink although not very often and denies any other illicit drug use. Chest x-ray in the ER shows interstitial infiltrates noted with mid and lower lung zones bilaterally that could reflect edema versus interstitial pneumonia. Patient underwent CTA of the chest showing no diagnostic evidence of PE, COPD with pulmonary fibrosis correlate for mild CHF with a dense coronary artery atherosclerosis noted along with incidental note of abdominal aortic aneurysm partially included measuring approximately 3.3 cm with nonspecific mediastinal and hilar lymphadenopathy. There is a prominent pulm onary artery that can be associated with pulmonary artery hypertension. 2-D echo was ordered and pending and was patient was admitted for chest pain for cardiology evaluation. Patient started on heparin as troponins was 0.031 and trending up at 0.043. Virology testing including influenza, RSV, and CoVid were all negative. WBC revealed a 10.8, hemoglobin 15.8, platelets 298, INR 1.0, sodium was 139 with a potassium of 3.9, BUN was 14 with creatinine of 0.86, total bili is 0.6, LFTs within normal limits, BNP was 546. Patient is currently maintained on 2 L of oxygen via nasal cannula for shortness of breath and oxygen saturations are 95-98% and patient reports he does not wear oxygen outpatient. Patient has been counseled extensively on complete tobacco cessation. 07/21/2023 Patient is seen and evaluated in follow-up with cardiology following along with CT surgery which has been consulted. Patient underwent cardiac catheterization showing triple-vessel heart disease and cardiothoracic has been consulted to discuss possible surgical intervention. Initiation of preoperative clearance has been ongoing and patient was scheduled to undergo NICOLAS today. Patient continues on 2 L via nasal cannula and reports his shortness of breath is improved and keeps asking if he could go home. Awaiting further evaluation from CT surgery and will discuss further with them about this. Family at the bedside with multiple questions and concerns were answered to the best of our ability. Patient's at bedside reports he smokes at least 2 packs a day of cigarettes and he mentioned only 1 pack per day and also drinks coffee from the time he wakes up until the time he goes to bed all day. Patient is afebrile denies chest pain or palpitations. No worsening shortness of breath noted. Patient was nothing by mouth for NICOLAS and diet resumed after procedure and tolerating with no reports of nausea or vomiting. Pro-calcitonin was normal and will discontinue empiric antibiotics. 07/22/2023 Patient is seen in follow-up today undergoing continued surgical work up for severe triple vessel disease. Patient continues to report he feels well and would like to go home prior to surgery. Patient is still requiring 2 liters via NC of . Multiple medical consultations following. Tentative surgery on Tuesday. Per cardiology, no plans for discharge prior to surgery at this time. Smoking cessation reinforced and patient remains on nicotine patch. Patient is afebrile and denies any chest pain or shortness of breath. Tolerating diet with no reported nausea or vomiting. 07/23/2023 Patient is currently lying in bed. Awake alert and oriented x3. Able to ambulate in the room. No complaints of chest pain or shortness of breath. No nausea vomiting abdominal pain or diarrhea. Saturating at 97% on room air. Patient has been afebrile. No cough or sputum production. Laboratory data showed sodium 135 potassium 3.7 chloride 100 bicarb is 27 BUN 2020 creatinine 0.9 and blood sugars 150. Patient is being continued on aspirin and statin, metoprolol and Aldactone. Cardiology and CT surgery is on board. Patient is scheduled for coronary artery bypass graft on 07/27/2023. 07/24/2023 Patient is currently in the telemetry unit. No complaints of chest pain or shortness of breath. No nausea vomiting abdominal pain or diarrhea. Able to ambulate in the room. Currently on oxygen at 2 L via nasal cannula and saturating at 100%. Patient has been afebrile. No acute overnight issues. P atient is using incentive spirometry. Scheduled for coronary revascularization surgery on 07/27/2023. Cardiology, pulmonary and CT surgery is on board. 07/25/2023 Patient is seen in follow-up this morning continued on 2 L via nasal cannula with good oxygen saturations and takes off frequently. Patient has been up walking around and labs within normal limits. Patient is using incentive spirometer as instructed and following heart healthy diet. Planning on CABG with valve repair or replacement on Tuesday with cardiothoracic surgery. Patient is currently afebrile with no reports of chest pain or worsening shortness of breath. Patient is tolerating diet and denies nausea or vomiting. 07/26/2023 Patient seen and evaluated in follow-up today and was told by evening or night nurse supervisor that patient was sleeping sitting at the side of the bed and fell forward striking his nasal bone and head on the table. Maxillofacial CT was done showing concern for minimal nasal bone fracture. CT brain ordered without contrast as patient will be undergoing extensive CABG surgery in the a.m. and maintained on high intensity heparin throughout. This was discussed and relayed to cardiothoracic surgery and following protocol. Patient continues to require 2-3 L via nasal cannula otherwise denies worsening shortness of breath or chest pain. Patient denies having dizziness or lightheadedness or passing out at the time of this fall. No reports of nausea or vomiting noted and patient will be nothing by mouth at midnight. 07/28/2023 Patient is seen and evaluated in follow-up today currently in the ICU with multiple medical consultations following. Patient is status post triple-vessel coronary artery bypass grafting with complex mitral valve repair. Patient continues with multiple chest tubes and Walsh catheter indwelling Napoles catheter. Patient not requiring pressor support at this time is currently sitting up in the chair. Patient does have heart hugger noted. Patient also continues with insulin drip with blood sugars well controlled and we'll transition to sliding scale and long-acting as needed possibly in 24 hours. Patient is afebrile reports some chest wall discomfort although reports to feeling well. Chest x- ray today shows residual mild pulmonary vascular congestion with some i mprovement on the right. Hemoglobin 7.2 and has received 2 units of PRBCs yesterday. Will follow-up with repeat chest x-ray and labs in the a.m. 07/29/2023 Patient is seen in follow-up today continues to be in the ICU currently sitting up in the chair. Patient reports feeling fatigued today and not getting much sleep. Hemoglobin was found to be 6.9 and awaiting receive a unit of PRBC. Patient to be transitioned off insulin drip and will start with sliding scale with Accu-Cheks before meals and at bedtime and add long-acting if needed for tight glycemic control. Patient is afebrile with no increasing shortness of breath noted. Patient is maintained on 3 L via nasal cannula maintaining oxygen saturations above 90%. Chest x-ray today shows right lung airspace opacification is concerning for developing pneumonia with stable left lower lung airspace opacification. Patient to continue with incentive spirometer at least 10 times every hour while awake. Patient is tolerating diet although not much of an appetite right now and reports to being fatigued. Will continue heart healthy diabetic diet. 08/01/2023 Patient seen and evaluated in follow-up today continues to be in the ICU with multiple medical consultations following. Patient is continued on 2 L via nasal cannula with good oxygen saturations above 95%. Patient continues to be restless and almost no sleep and has been receiving as needed Xanax with melatonin. Patient with some pulmonary congestion did receive a dose of Lasix today. Hemoglobin is stable at 8.1. Sodium slightly low at 129 with a potassium of 4.0 and creatinine is 0.80. Liver functions are elevated with an AST of 431 and ALT is 213 and statin has been discontinued for now. Recommend follow-up labs in the a.m. Blood sugars well controlled on current regimen and will continue with Accu-Cheks before meals and at bedtime and sliding scale. Encouraged oral intake and increased activity as tolerated. Review of systems: Constitutional: reports of fatigue, no fever, or chills, reports lack of sleep and increased anxiety Cardiovascular: No reports of chest pain or palpitations, reports chest wall discomfort Respiratory: No reports of worsening shortness of breath or cough GI: No reports of nausea, vomiting, or diarrhea : No reports of dysuria or retention Neurovascular: reports of generalized weakness All medications have been reviewed Active Medications Acetaminophen (Acetaminophen Tab 325 Mg Tab) 650 mg PO Q4HR PRN PRN Reason: Fever and/ or Mild Pain Last Admin: 07/31/23 18:17 Dose: 650 mg Albuterol/Ipratropium (Ipratropium-Albuterol 3 Ml Neb) 3 ml INHALATION RT-Q2H PRN PRN Reason: Shortness Of Breath Or Wheezing Albuterol/Ipratropium (Ipratropium-Albuterol 3 Ml Neb) 3 ml INHALATION RT-QID [facility] Last Admin: 08/01/23 14:55 Dose: Not Given Alprazolam (Alprazolam 0.25 Mg Tab) 0.25 mg PO TID PRN PRN Reason: Anxiety Last Admin: 07/31/23 21:52 Dose: 0.25 mg Ascorbic Acid (Ascorbic Acid 500 Mg Tab) 500 mg PO 1200 [facility] Last Admin: 08/01/23 12:54 Dose: 500 mg Aspirin (Aspirin 81 Mg) 81 mg PO DAILY [facility] Last Admin: 08/01/23 08:53 Dose: 81 mg Benzocaine/Menthol (Benzocaine/Menthol Lozeng 1 Each Lozenge) 1 each MUCOUS MEM Q2H PRN PRN Reason: Sore Throat Last Admin: 07/29/23 17:01 Dose: 1 each Bisacodyl (Bisacodyl 10 Mg Supp) 10 mg RECTAL DAILY PRN PRN Reason: Constipation Cholecalciferol (Cholecalciferol 25 Mcg (1000 Iu) Tablet) 50 mcg PO DAILY [facility] Last Admin: 08/01/23 08:53 Dose: 50 mcg Citalopram Hydrobromide (Citalopram Hydrobromide 20 Mg Tab) 20 mg PO DAILY [facility] Last Admin: 08/01/23 08:53 Dose: 20 mg Clopidogrel Bisulfate (Clopidogrel 75 Mg Tab) 75 mg PO DAILY [facility] Last Admin: 08/01/23 08:53 Dose: 75 mg Dextrose/Water (Dextrose 50% Syringe 50 Ml) 25 ml IVP PER PROTOCOL PRN; Protocol PRN Reason: Hypoglycemia Dextrose/Water (Dextrose 50% Syringe 50 Ml) 50 ml IVP PER PROTOCOL PRN; Protocol PRN Reason: Hypoglycemia Ferrous Sulfate (Ferrous Sulfate 325 Mg Tab) 325 mg PO W/LUNCH [facility] Last Admin: 08/01/23 12:54 Dose: 325 mg Fondaparinux (Fondaparinux 2.5 Mg/0.5 Ml Syringe) 2.5 mg SQ DAILY [facility] Last Admin: 08/01/23 08:50 Dose: 2.5 mg Amiodarone HCl 150 mg/ (Dextrose/Water) 103 mls @ 618 mls/hr IV .Q10M PRN; Protocol PRN Reason: A.FIB/FLUTTER Last Admin: 07/29/23 16:29 Dose: 618 mls/hr Insulin Aspart (Insulin Aspart (Novolog) 100 Unit/Ml Vial) 0 unit SQ ACHS [facility]; Protocol Last Admin: 08/01/23 11:51 Dose: Not Given Losartan Potassium (Losartan 25 Mg Tab) 12.5 mg PO DAILY@1200 [facility] Last Admin: 08/01/23 12:54 Dose: 12.5 mg Magnesium Hydroxide (Magnesium Hydroxide 2,400 Mg/30 Ml Cup) 2,400 mg PO BID PRN PRN Reason: Constipation Melatonin (Melatonin 3 Mg Tablet) 6 mg PO HS PRN PRN Reason: Insomnia Last Admin: 07/31/23 20:56 Dose: 6 mg Metoclopramide HCl (Metoclopramide 5 Mg/Ml 2 Ml Vial) 10 mg IVP Q4H PRN PRN Reason: Nausea And Vomiting Metoprolol Tartrate (Metoprolol Tartrate 12.5 Mg Tab) 12.5 mg PO BID [facility] Last Admin: 08/01/23 08:54 Dose: Not Given Miscellaneous Information (Potassium Replacement Protocol 1 Each Misc) 1 each MISCELLANE DAILY PRN; Protocol PRN Reason: Per Protocol Miscellaneous Information (Magnesium Replacement Protocol 1 Each Misc) 1 each MISCELLANE DAILY PRN; Protocol PRN Reason: Per Protocol Nicotine (Nicotine 14mg/24hr Patch) 1 patch TRANSDERM DAILY [facility] Last Admin: 08/01/23 09:12 Dose: 1 patch Ondansetron HCl (Ondansetron 4 Mg/2 Ml Vial) 4 mg IVP Q6HR PRN PRN Reason: Nausea And Vomiting Pantoprazole Sodium (Pantoprazole 40 Mg/10 Ml Vial) 40 mg IVP BID [facility] Last Admin: 08/01/23 08:53 Dose: 40 mg Senna/Docusate Sodium (Sennosides-Docusate Sodium 1 Each Tab) 2 each PO HS [facility] Last Admin: 08/01/23 05:14 Dose: Not Given Sodium Chloride (Sodium Chloride 0.9% Flush 10 Ml Syringe) 10 ml IV BID [facility] Last Admin: 08/01/23 08:54 Dose: 10 ml PHYSICAL EXAMINATION: GENERAL: The patient is alert and oriented x2-3, restless, anxious Well developed, well nourished. HEENT: Pupils are round and equally reacting to light. EOMI. no scleral icterus. No conjunctival pallor. Normocephalic, atraumatic. No pharyngeal erythema. No thyromegaly. No facial deformity noted on exam CARDIOVASCULAR: S1 and S2 muffled PULMONARY: diminished breath sounds bilaterally with no wheezing or rhonchi noted. ABDOMEN: soft. Nontender on exam. obese. non-distended, normoactive bowel sounds. No palpable organomegaly. MUSCULOSKELETAL: No joint swelling or deformity. EXTREMITIES: No cyanosis, clubbing, or pedal edema. NEUROLOGICAL: Gross neurological examination did not reveal any focal deficits. Diffusely weak SKIN: No rashes. Assessment: Chest pain status post cardiac catheterization found to have severe triple- vessel disease status post three-vessel CABG with complex mitral valve repair Acute hypoxic respiratory failure, present on admission, multifactorial, secondary to severe triple vessel disease as well as acute CHF exacerbation with preserved EF Acute blood loss anemia and thrombocytopenia expected post surgery, hemoglobin above 8 today NSTEMI, present on admission with elevated troponins Mild leukocytosis, possibly reactive, resolved COPD, not in exacerbation Coronary artery atherosclerosis noted on CTA 3.3 cm abdominal aortic aneurysm noted on CTA Aortic valve murmur consistent with aortic stenosis, moderate History of GERD Hyperlipidemia history Hypertension history Continued ongoing nicotine dependence, smokes about 2 packs per day Excessive caffeine intake daily GI prophylaxis DVT prophylaxis Full code Plan: Patient is continued in the ICU with multiple medical consultations following as patient was found to have severe triple-vessel disease and is status post three-vessel CABG with complex mitral valve repair Continue on supplemental oxygen and wean as tolerated. Encourage incentive spirometer use at least 10 times every hour while awake Continue GI and DVT prophylaxis . Patient's hemoglobin stable above 8 today, monitor closely and transfuse as 7 or less Patient to continue with sliding scale with Accu-Cheks before meals and at bedtime and will add long-acting as needed if blood sugars start to elevate. Encouraged increased activity as tolerated with cardiac rehab following Continue telemetry monitoring Complete tobacco cessation and excessive caffeine use has been discussed extensively Xanax has been increased slightly along with melatonin as patient is not sleeping and has increased anxiety with restlessness Overall prognosis is guarded at this time. We will continue to follow during hospitalization. The impression and plan of care has been dictated by Delia Oakes, nurse practitioner as directed. MD Alyse I have performed a history and examination and MDM of this patient, discussed the same with the dictator, and agree with the dictator's assessment and plan as written ,documented as a scribe. Based on total visit time, I have performed more than 50% of the visit. Any additional findings or plans will be noted. Objective - Vital Signs Vital signs: Vital Signs Temp 97.9 F 08/01/23 04:00 Pulse 67 08/01/23 09:00 Resp 24 08/01/23 09:00 BP 135/67 08/01/23 09:00 Pulse Ox 95 08/01/23 09:00 FiO2 50 07/27/23 22:02 Intake & Output 07/31/23 08/01/23 08/01/23 18:59 06:59 18:59 Intake Total 551 549 164 Output Total 575 650 185 Balance - Weight 76.9 kg Intake: IV 251 299 46 Pressure bags (0.9 Sodium 51 39 6 Chloride) Sodium Chloride 0.9% 1, 200 260 40 000 ml @ 20 mls/hr IV . Q24H [facility] Rx#:[id number] Intake, IV Titration 100 Amount Calcium Gluconate in NaCl 100 2 gm In Saline 1 100ml. bag @ 100 mls/hr IVPB ONCE ONE Rx#:[id number] Oral 200 250 118 Output: Urine 575 650 185 Other: Voiding Method Urinal Urinal # Voids 1 # Bowel Movements 1 ABP, PAP, CO, CI - Last Documented Arterial Blood Pressure 103/56 Pulmonary Artery Pressure 52/14 Cardiac Output 4 Cardiac Index 2.2 - Labs CBC & Chem 7: 08/01/23 05:00 08/01/23 05:00 Labs: Abnormal Lab Results - Last 24 Hours (Table) 07/31/23 07/31/23 07/31/23 Range/Units 12:39 16:41 21:19 RBC (4.30-5.90) m/uL Hgb (13.0-17.5) gm/dL Hct (39.0-53.0) % RDW (11.5-15.5) % Sodium (137-145) mmol/L BUN (9-20) mg/dL Glucose (74-99) mg/dL POC Glucose (mg/dL) 130 H 141 H 138 H (70-110) mg/dL Calcium (8.4-10.2) mg/dL Total Bilirubin (0.2-1.3) mg/dL AST (17-59) U/L ALT (4-49) U/L Total Protein (6.3-8.2) g/dL Albumin (3.5-5.0) g/dL 08/01/23 08/01/23 Range/Units 05:00 05:00 RBC 2.58 L (4.30-5.90) m/uL Hgb 8.1 L (13.0-17.5) gm/dL Hct 24.0 L (39.0-53.0) % RDW 17.7 H (11.5-15.5) % Sodium 129 L (137-145) mmol/L BUN 28 H (9-20) mg/dL Glucose 132 H (74-99) mg/dL POC Glucose (mg/dL) (70-110) mg/dL Calcium 7.9 L (8.4-10.2) mg/dL Total Bilirubin 1.8 H (0.2-1.3) mg/dL AST 431 H (17-59) U/L ALT 213 H (4-49) U/L Total Protein 5.0 L (6.3-8.2) g/dL Albumin 2.6 L (3.5-5.0) g/dL Microbiology - Last 24 Hours (Table) 07/30/23 07:37 Gram Stain - Final Sputum Sputum Culture - Final 07/28/23 10:55 Gram Stain - Preliminary Pericardial Fluid Tissue Culture - Preliminary
[2023-08-01] MEDS: ALPRAZolam 0.25 MG TAB PO PRN (20:04)
[2023-08-01] MEDS: MELATONIN 3 MG TABLET PO PRN (20:05)
[2023-08-01 20:10] LABS: Glucose,Whole Blood 132 mg/dL (70-110)
[2023-08-02] MEDS: BENZOCAINE/MENTHOL LOZENG 1 EACH LOZENGE MUCOUS MEM PRN (03:49)
[2023-08-02 05:44] LABS: Anisocytosis Slight; HCT 23.7 % (39.0-53.0); HGB 7.8 gm/dL (13.0-17.5); Hypochromasia Slight; MCH 31.9 pg (25.0-35.0); MCV 96.6 fL (80.0-100.0); Macrocytosis Slight; Mean Platelet Volume 9.2; Platelet Count 224 k/uL (150-450); Poikilocytosis Slight; RBC 2.45 m/uL (4.30-5.90); RDW 18.9 % (11.5-15.5); WBC 8.8 k/uL (3.8-10.6)
[2023-08-02 05:52] LABS: ALT 236 U/L (4-49); AST 292 U/L (17-59); African American GFR (CKD) 76 (>60 ml/min/1.73 sqM); Albumin 2.6 g/dL (3.5-5.0); Alkaline Phosphatase 82 U/L (38-126); Anion Gap 8 mmol/L; Blood Urea Nitrogen 30 mg/dL (9-20); Carbon Dioxide 25 mmol/L (22-30); Chloride 97 mmol/L (98-107); Glucose 100 mg/dL (74-99); Non-African American GFR(CKD) 66 (>60 ml/min/1.73 sqM); Potassium 3.9 mmol/L (3.5-5.1); Sodium 130 mmol/L (137-145); Total Bilirubin 1.5 mg/dL (0.2-1.3); Total Protein 5.2 g/dL (6.3-8.2)
[2023-08-02 06:43] LABS: Glucose,Whole Blood 115 mg/dL (70-110)
[2023-08-02] MEDS: INSULIN ASPART (NovoLOG) 100 UNIT/ML VIAL SQ SCH ×4 (06:46→20:57)
[2023-08-02] MEDS ORDERED: POTASSIUM CHLORIDE ER 20 MEQ TAB.ER PO SCH (07:00)
[2023-08-02] MEDS: METOPROLOL TARTRATE 12.5 MG TAB PO SCH (07:21)
[2023-08-02] MEDS: IPRATROPIUM-ALBUTEROL 3 ML NEB INHALATION SCH ×4 (08:33→20:37)
[2023-08-02] MEDS ORDERED: FUROSEMIDE 10 MG/ML 2 ML VIAL IV ONE (08:43)
[2023-08-02] MEDS ORDERED: Potassium Replacement Protocol 1 EACH MISC MISCELLANE PRN (08:47)
[2023-08-02] MEDS: NICOTINE 14MG/24HR PATCH TRANSDERM SCH (08:54)
[2023-08-02] MEDS: ASPIRIN 81 MG PO SCH (08:55)
[2023-08-02] MEDS: CLOPIDOGREL 75 MG TAB PO SCH (08:56)
[2023-08-02] MEDS: FONDAPARINUX 2.5 MG/0.5 ML SYRINGE SQ SCH (08:56)
[2023-08-02] MEDS: CHOLECALCIFEROL 25 MCG (1000 IU) TABLET PO SCH (08:56)
[2023-08-02] MEDS: CITALOPRAM HYDROBROMIDE 20 MG TAB PO SCH (08:56)
[2023-08-02] MEDS: PANTOPRAZOLE 40 MG/10 ML VIAL IVP SCH ×2 (08:57→20:59)
[2023-08-02] MEDS ORDERED: POTASSIUM BICARBONATE/CIT AC 20 MEQ TABLET.EFF NG-TUBE SCH (09:00)
--- NOTE | 2023-08-02 09:23 | P.PN ---
Subjective Progress Note Date: 08/02/23 The patient is seen today 07/22/2023 in follow-up on the selective care unit. He is currently sitting up in bed. Awake and alert in no acute distress. He is maintaining O2 saturations in the 90s on 3 L/m per nasal cannula. He is pulling approximately 1200 ML's on his incentive spirometer. He continues to be worked up for possible bypass surgery along with mitral valve and tricuspid valve repairs. FEV1 value was 1.26 or 54% of predicted. NicoDerm patch remains in place. The patient is seen today 07/23/2023 in follow-up on the selective care unit. He is currently sitting up in a chair at the bedside. Awake and alert in no acute distress. Denies any worsening shortness of breath cough or congestion. Denies any chest pain. He is maintaining good O2 saturations up to 97% on room air. Afebrile. Sodium 135. Potassium 3.7. Bicarb 27. BUN 22. Creatinine 0.90. NicoDerm patch in place. The patient is seen today 07/24/2023 in follow-up on the selective care unit. Awake and alert in no acute distress. Sitting in bed. Denies any chest pain. No palpitations. No worsening shortness of breath or cough. He did have a nightmare and some confusion last evening. Oriented 3 today. Maintaining O2 saturations in the 90s on 2 L/m per nasal cannula. He is afebrile. Hemodynamically stable. NicoDerm patch in place. The patient is seen today 07/25/2023 in follow-up on the selective care unit. He is ambulating in his room. Awake and alert in no acute distress. Denies any chest pain. Denies any worsening shortness of breath, cough or congestion. He is maintaining good O2 saturations in the 90s on 2 L/m per nasal cannula. Afebrile. Hemodynamically stable. Sodium 134. Potassium 4.3. Bicarb 28. BUN 19. Creatinine 0.87. Glucose 113. NicoDerm patch remains in place. Progress note dated 07/26/2023. The patient is seen today in room 356. The patient is scheduled to have bypass grafting, on July 27. Currently he is on 2 L of oxygen. No IV fluids. He is sitting at the bedside. White count 5.4, hemoglobin 10.4, hematocrit 30.9, with a normal platelet count. Sodium 132, potassium 4.3, chlorides 98, CO2 29, BUN 21, creatinine 0.85. Chest x-ray shows changes of COPD, with mild interstitial pulmonary edema. Progress note dated 07/27/2023. The patient was seen this morning in room 356. The patient is scheduled to have open-heart surgery today, 07/27/2023. He is currently on 2 L of oxygen. Lab data today includes a glucose of 121. Lab data from July 26 have been reviewed. X-rays, medications, and other information has also been reviewed. Previous chest x-ray shows changes of COPD, with mild interstitial pulmonary edema. Progress note dated 07/28/2023. The patient is postop day #1, status post three-vessel bypass grafting, mitral valve repair, tricuspid valve repair, and exclusion of the left atrial appendage. The patient's currently been extubated to 4 L of oxygen. He was extubated on July 27, at nighttime. He is getting saline at 50 mL an hour, and an insulin drip at 2.5 units an hour. The patient is very anxious and received some benzodiazepine. White count 6.9, hemoglobin 7.2, hematocrit 20.9, and a platelet count of 50,000. Sodium 135, potassium 4.6, chlorides 105, CO2 26, BUN 23, and creatinine 0.94. Chest x-ray shows some mild pulmonary vascular congestion, and some basilar atelectasis. The endotracheal tube has been removed. Progress note dated 07/29/2023. This patient is seen today in room 266. He's postoperative day #2, status post three-vessel bypass grafting, mitral and tricuspid valve repair, and exclusion of the left atrial appendage. Patient is currently on 4 L of oxygen. He is g etting saline at 20 mL an hour. He will get 1 unit of packed red blood cells today. White count is 9, 11 6.9, hematocrit 20.4, and platelet count 82,000. Sodium 132, potassium 4.3, chlorides 104, CO2 25, BUN 23, and creatinine 0.82. Albumin is 2.7. Chest x-ray shows some airspace opacities at the right lung base. There is also some infiltrate or atelectasis at the left lung base. Progress note dated 07/30/2023. The patient is again seen today in room 266. He's postoperative day #3, status post three-vessel bypass grafting, mitral and tricuspid valve repair, and exclusion of left atrial appendage. Currently, the patient's sitting upright in the chair. He is on 2 L of oxygen. He continues on amiodarone at 0.5 mg/m. He is also getting saline at 20 mL an hour. According to the nurse, he had a pretty stable and uneventful night. White count 8.1, he will been 7.7, hematocrit 22.1, and platelet count 92,000. Sodium 130, potassium 4.5, chlorides 102, CO2 26, BUN 24, and creatinine 0.74. AST is 248. ALT is 79. Chest x-ray in my opinion show some cardiomegaly, and mild increased vascular congestion. Progress note dated 07/31/2023. 73-year-old male, seen in room 266. He has postoperative day #4, status post three-vessel bypass grafting, mitral repair, tricuspid valve repair, and exclusion of left atrial appendage. The patient is currently on 2 L of oxygen. He is getting saline at 20 mL an hour. He sitting in a chair next to his bed. He is getting about 750 mL on his incentive spirometer. White count of 6.3, hemoglobin 7.2, hematocrit 21.4, with platelet count of 120,000. Sodium 128, potassium 4, chloride 98, CO2 24, BUN 29, and creatinine 0.81. AST is 240, with an ALT of 127. Chest x-ray show some bibasilar atelectasis, tiny effusions, some postoperative changes. On today's evaluation of 08/01/2023, the patient is doing well on 2 L of oxygen by nasal cannula. His postoperative day #4. Hemodynamically stable. Cardiac rhythm is paced with an underlying junctional rhythm.. Using incentive spirometer. The patient had a follow-up chest x-ray today that shows cardiomegaly. There is some pulmonary vascular congestion and he was given 20 mg of IV Lasix today. He still has some patchy bilateral pulmonary infiltrates more so in the right upper lobe. His white cell count is at 9.7, hemoglobin is at 8.4, and sodium is at 129, potassium is at 4, BUN is at 28 with a creatinine of 0.8. LFTs are slightly abnormal with an AST of 431 and ALT of 231. Lipitor was accordingly placed on hold. He remains on aspirin. He remains on Plavix. He remains off metoprolol because of his underlying junctional cardiac rhythm. Anticoagulations with Arixtra 2.5 mg subcu once a day. No other significant events overnight. Neurologically intact. Communicating. Tolerating his diet. He had adequate bowel movements. Noted the patient had severe diffuse calcified triple-vessel coronary artery disease with severe mitral regurgitation and prolapse of P2 with a ruptured cord and tricuspid regurgitation with severe pulmonary hypertension. He underwent three-vessel bypass surgery and mitral valve repair and tricuspid valve repair. On today's evaluation of 08/02/2023, the patient is postop day #5. His recovering from his cardiac surgery. His underlying cardiac rhythm is A. fib with bradycardia and occasional junctional rhythm. He has a pacemaker as a backup at the rate of 50. He is not taking any beta blockers at this point in time. His being contemplated for a pacemaker insertion. Meanwhile, the patient is currently on 2 L of oxygen by nasal cannula. Is oxygen saturations 95%. Hemodynamically stable. Hemoglobin is at 7.8 slightly lower compared to yesterday. Sodium is at 130, BUN is at 30 with a creatinine of 1.09. Chest x-ray is essentially unchanged. Objective - Vital Signs Vital signs: Vital Signs Temp 97.9 F 08/02/23 08:00 Pulse 56 L 08/02/23 08:44 Resp 24 08/02/23 08:00 BP 94/48 08/02/23 08:00 Pulse Ox 97 08/02/23 08:00 FiO2 50 07/27/23 22:02 Intake & Output 08/01/23 08/02/23 08/02/23 18:59 06:59 18:59 Intake Total 1331 100 Output Total 385 401 Balance 946 -401 100 Weight 76.2 kg Intake: IV 115 Pressure bags (0.9 Sodium 15 Chloride) Sodium Chloride 0.9% 1, 100 000 ml @ 20 mls/hr IV . Q24H [facility] Rx#:[id number] Oral 1216 100 Output: Urine 385 400 Stool 1 Other: Voiding Method Urinal Urinal Bedside Commode Urinal # Voids 1 1 1 # Bowel Movements 1 1 1 ABP, PAP, CO, CI - Last Documented Arterial Blood Pressure 103/56 Pulmonary Artery Pressure 52/14 Cardiac Output 4 Cardiac Index 2.2 - Exam No acute distress, oriented 3. Currently on 2 L of oxygen. Saturations are 94%. HEENT examination is grossly unremarkable. Mucous membranes are moist. No oral lesions. Neck supple. Full range of motion. No adenopathy thyromegaly or neck vein di stention. Cardiovascular examination reveals regular rhythm rate. S1-S2 normal. No S3 or S4. No discernible murmur noted. Heart rate 84 bpm. Lungs reveal minimal bibasilar crackles. No wheezes or rhonchi. Breath sounds are equal bilaterally. Abdomen soft bowel sounds are heard. No masses or tenderness. Extremities are intact. No cyanosis clubbing or edema. Skin is without rash or lesion. Neurologic examination is brief but nonfocal. - Labs CBC & Chem 7: 08/02/23 05:10 08/02/23 05:10 Labs: Abnormal Lab Results - Last 24 Hours (Table) 08/01/23 08/01/23 08/01/23 Range/Units 11:40 16:13 20:09 RBC (4.30-5.90) m/uL Hgb (13.0-17.5) gm/dL Hct (39.0-53.0) % RDW (11.5-15.5) % Sodium (137-145) mmol/L Chloride (98-107) mmol/L BUN (9-20) mg/dL Glucose (74-99) mg/dL POC Glucose (mg/dL) 136 H 115 H 132 H (70-110) mg/dL Calcium (8.4-10.2) mg/dL Total Bilirubin (0.2-1.3) mg/dL AST (17-59) U/L ALT (4-49) U/L Total Protein (6.3-8.2) g/dL Albumin (3.5-5.0) g/dL 08/02/23 08/02/23 08/02/23 Range/Units 05:10 05:10 06:42 RBC 2.45 L (4.30-5.90) m/uL Hgb 7.8 L (13.0-17.5) gm/dL Hct 23.7 L (39.0-53.0) % RDW 18.9 H (11.5-15.5) % Sodium 130 L (137-145) mmol/L Chloride 97 L (98-107) mmol/L BUN 30 H (9-20) mg/dL Glucose 100 H (74-99) mg/dL POC Glucose (mg/dL) 115 H (70-110) mg/dL Calcium 8.0 L (8.4-10.2) mg/dL Total Bilirubin 1.5 H (0.2-1.3) mg/dL AST 292 H (17-59) U/L ALT 236 H (4-49) U/L Total Protein 5.2 L (6.3-8.2) g/dL Albumin 2.6 L (3.5-5.0) g/dL Microbiology - Last 24 Hours (Table) 07/28/23 10:55 Gram Stain - Final Pericardial Fluid Tissue Culture - Final 07/30/23 07:37 Gram Stain - Final Sputum Sputum Culture - Final Assessment and Plan Plan: Postop day #5, status post three-vessel bypass grafting, mitral valve repair, tricuspid valve repair, and exclusion of the left atrial appendage. Patient also status post mitral valve and tricuspid valve repair. Routine postoperative ventilator management, with extubation, on July 27. The patient is currently on oxygen at 2 L/m nasal cannula. All of the chest tubes are removed. Multi-vessel coronary artery disease and severe mitral regurgitation, being considered for open heart surgery with surgical revascularization and mitral valve replacement, however, the patient does want to proceed with this option. Junctional cardiac rhythm and currently the patient is a separate of 50 backup rate. He is gradually improving and is off beta blockers for now. Exertional dyspnea, likely secondary to above. CTA of the chest was completed for PE protocol which demonstrated no diagnostic evidence of pulmonary embolism, COPD like changes, pulmonary fibrosis, trace bilateral pleural effusions, groundglass changes, posssibly mild venous congestion correlate for mild CHF exacerbation. Benign essential hypertension. Hyperlipidemia. Abdominal aortic aneurysm, measuring 3.3 cm incidentally found on chest CTA. GERD. Chronic and ongoing nicotine dependence. Plan: Monitor the cardiac rhythm is being contemplated for a pacemaker insertion regarding his bradycardia and junctional rhythm. His underlying rhythm is atrial fibrillation also. He has a backup pacemaker at the rate of 50 Continue using the spirometer Keep the patient off beta blockers for now Increase mobility Chest tube removed Lasix 20 mg IV 1 Blood work was noted Chest x-ray was noted We'll continue to follow
[2023-08-02] MEDS: ACETAMINOPHEN TAB 325 MG TAB PO PRN ×3 (09:29→20:57)
--- NOTE | 2023-08-02 09:41 | P.PN ---
Subjective Progress Note Date: 08/02/23 Principal diagnosis: Severe diffuse calcific triple-vessel coronary artery disease with chronically occluded RCA and first OM, unstable angina, severe mitral valve regurgitation wi th prolapse of P2 with ruptured chord, moderate tricuspid valve regurgitation with severe pulmonary hypertension. History of hypertension, hyperlipidemia, abdominal aortic aneurysm with calcification of the posterior aspect of the ascending aorta, chronic ongoing tobacco dependence, moderate restrictive lung disease, GERD, depression POD #6 triple-vessel coronary artery bypass grafting using the left internal mammary artery to the left anterior descending artery, reverse saphenous vein graft from the aorta to the first obtuse marginal artery, reverse saphenous vein graft from the aorta to the posterior descending artery, complex mitral valve repair with construction of two pairs of NeoChords to P2 and posterior ring annuloplasty using a 34 mm AnnuloFlex ring, tricuspid valve repair using a 28 mm MC3 ring, exclusion of the left atrial appendage using a 40 mm AtriClip, endoscopic harvesting of the left greater saphenous vein, intraoperative graft flow measurements using the Traxer system, intraoperative transesophageal echocardiogram and epiaortic scanning Postoperative acute blood loss anemia and thrombocytopenia, expected given hemodilution and cardiopulmonary bypass pump Paroxysmal atrial fibrillation, known common occurrence after open heart surgery, not a complication Elevated transaminases, likely medication induced Bradycardia, unexpected although possibly due to medication effect The patient was seen and examined this morning sitting up in a recliner in no acute distress eating breakfast. Currently controlled afib with occasional paced rhythm due to bradycardia. No beta yamile nor amiodarone given for 48 hours. Patient does complain of some post surgical pain, denies shortness of breath. Chest x-ray, labs reviewed. Currently on 2 L nasal cannula with oxygen saturation in the mid 90s, was trialed on room air but oxygen saturation only in the high 80s. Able to achieve 750-1000 mL on his incentive spirometry. Patient has ambulated in the hallway multiple times. Patient has been a bit delirious and restless at times although this is to be expected as his normal sleep cycle starts at 3-4 AM until afternoon, so he is not sleeping very much at night as that is not normal for him, and every time he falls asleep during the day here he has woken up by various medical dermatologist. Objective - Vital Signs Vital signs: Vital Signs Temp 97.9 F 08/02/23 08:00 Pulse 56 L 08/02/23 08:44 Resp 24 08/02/23 08:00 BP 94/48 08/02/23 08:00 Pulse Ox 97 08/02/23 08:00 FiO2 50 07/27/23 22:02 Intake & Output 08/01/23 08/02/23 08/02/23 18:59 06:59 18:59 Intake Total 1331 100 Output Total 385 401 Balance 946 -401 100 Weight 76.2 kg Intake: IV 115 Pressure bags (0.9 Sodium 15 Chloride) Sodium Chloride 0.9% 1, 100 000 ml @ 20 mls/hr IV . Q24H [facility] Rx#:[id number] Oral 1216 100 Output: Urine 385 400 Stool 1 Other: Voiding Method Urinal Urinal Bedside Commode Urinal # Voids 1 1 1 # Bowel Movements 1 1 1 ABP, PAP, CO, CI - Last Documented Arterial Blood Pressure 103/56 Pulmonary Artery Pressure 52/14 Cardiac Output 4 Cardiac Index 2.2 - Exam CONSTITUTIONAL: Cooperative, no acute distress RESPIRATORY: Lungs sounds diminished bilaterally. Respirations even, nonlabored. Currently on 2 L nasal cannula with oxygen saturation 93%. Able to achieve 750-1000 mL on incentive spirometry. Strong loose cough. CARDIOVASCULAR: S1, S2 present. Irregular rate and rhythm, controlled A. fib, occasionally paced. Sternum stable. Palpable peripheral pulses bilaterally. No edema present. No calf pain or tenderness noted. Heart hugger in place with patient demonstrating appropriate use. Antiembolism stockings, SCDs present. GASTROINTESTINAL: Abdomen soft, nontender, nondistended. Active bowel sounds present 4 quadrants. Tolerating diet. Positive bowel movement 08/01/23 (black, soft) GENITOURINARY: Continues to void clear yellow urine INTEGUMENTARY: Skin is warm and dry with evidence of good perfusion. Anterior chest incision well approximated and covered with dry intact dressing. Left lower extremity EVH site well approximated NEUROLOGIC: Cranial nerves II through XII intact MUSKULOSKELETAL: Able to move all extremities, strength equal bilaterally, gait normal PSYCHIATRIC: Alert and oriented to person place and time, intact judgment and insight, delirious at times INVASIVE LINES AND TUBES: A/V epicardial pacemaker wires present, connected to generator, AAI mode with backup rate 50 bpm - Allied health notes Allied health notes reviewed: nursing - Labs CBC & Chem 7: 08/02/23 05:10 08/02/23 05:10 Labs: Abnormal Lab Results - Last 24 Hours (Table) 08/01/23 08/01/23 08/01/23 Range/Units 11:40 16:13 20:09 RBC (4.30-5.90) m/uL Hgb (13.0-17.5) gm/dL Hct (39.0-53.0) % RDW (11.5-15.5) % Sodium (137-145) mmol/L Chloride (98-107) mmol/L BUN (9-20) mg/dL Glucose (74-99) mg/dL POC Glucose (mg/dL) 136 H 115 H 132 H (70-110) mg/dL Calcium (8.4-10.2) mg/dL Total Bilirubin (0.2-1.3) mg/dL AST (17-59) U/L ALT (4-49) U/L Total Protein (6.3-8.2) g/dL Albumin (3.5-5.0) g/dL 08/02/23 08/02/23 08/02/23 Range/Units 05:10 05:10 06:42 RBC 2.45 L (4.30-5.90) m/uL Hgb 7.8 L (13.0-17.5) gm/dL Hct 23.7 L (39.0-53.0) % RDW 18.9 H (11.5-15.5) % Sodium 130 L (137-145) mmol/L Chloride 97 L (98-107) mmol/L BUN 30 H (9-20) mg/dL Glucose 100 H (74-99) mg/dL POC Glucose (mg/dL) 115 H (70-110) mg/dL Calcium 8.0 L (8.4-10.2) mg/dL Total Bilirubin 1.5 H (0.2-1.3) mg/dL AST 292 H (17-59) U/L ALT 236 H (4-49) U/L Total Protein 5.2 L (6.3-8.2) g/dL Albumin 2.6 L (3.5-5.0) g/dL Microbiology - Last 24 Hours (Table) 07/28/23 10:55 Gram Stain - Final Pericardial Fluid Tissue Culture - Final 07/30/23 07:37 Gram Stain - Final Sputum Sputum Culture - Final - Imaging and Cardiology Chest x-ray: image reviewed Assessment and Plan Assessment: Severe diffuse calcific triple-vessel coronary artery disease with chronically occluded RCA and first OM, unstable angina, status post 3V CABG Severe mitral valve regurgitation with prolapse of P2 with ruptured chord, status post complex mitral valve repair Moderate tricuspid valve regurgitation with severe pulmonary hypertension, status post tricuspid valve repair History of hypertension Hyperlipidemia, treated, cholesterol 121, LDL 60.5 Abdominal aortic aneurysm with calcification of the posterior aspect of the ascending aorta Chronic ongoing tobacco dependence Moderate restrictive lung disease, preoperative FEV1 54% of predicted GERD Depression Postoperative acute blood loss anemia and thrombocytopenia, expected Paroxysmal atrial fibrillation, bradycardia Elevated transaminases Plan: Continue to optimize medical management with low dose aspirin, plavix, and beta yamile with hold parameters. Continue low dose ARB for afterload reduction with hold parameters. Statin discontinued today due to elevated transaminases Amiodarone discontinued. No anticoagulation until all lines/tubes have been discontinued Keep epicardial pacer wire connected to generator with backup rate. Plan is for permanent pacemaker placement tomorrow by Dr. Rosario Wean oxygen as tolerated. Encourage incentive spirometry 10 x every hour while awake. Bronchodilators per pulmonology Increase activity as tolerated. PT/OT/cardiac rehab consulted Will monitor daily labs and CXR. Electrolyte replacement per protocol. HIT panel negative. Will give IV Lasix GI/DVT prophylaxis Pain control with current medication regimen Insulin management per internal medicine, patient is not diabetic with preoperative HgbA1c 5.8%, but needs tight blood sugar control to prevent infection Continue to record strict accurate I/Os Daily weights Smoking cessation counseling and education provided More recommendations to follow based on patient's progress
--- NOTE | 2023-08-02 11:12 | XR ---
EXAMINATION TYPE: XR chest 1V portable DATE OF EXAM: 08/02/2023 Comparison: 08/01/2023 Clinical History: 73-year-old male post cardiac surgery Findings: Median sternotomy wires are present post CABG clips. Heart mildly enlarged. Diffuse hazy opacities th roughout with trace left effusion. Retained epicardial pacer leads. Impression: Correlate for CHF with interstitial pulmonary edema similar to slightly increased. Similar trace left pleural effusion.
[2023-08-02] MEDS: LOSARTAN 25 MG TAB PO SCH (12:09)
[2023-08-02] MEDS: FERROUS SULFATE 325 MG TAB PO SCH (12:09)
[2023-08-02] MEDS: ASCORBIC ACID 500 MG TAB PO SCH (12:09)
[2023-08-02 12:22] LABS: Glucose,Whole Blood 132 mg/dL (70-110)
[2023-08-02] MEDS ORDERED: SODIUM CHLORIDE 0.9% 1,000 ML IV SCH ×2 (12:30)
[2023-08-02 16:26] LABS: Glucose,Whole Blood 154 mg/dL (70-110)
[2023-08-02 20:50] LABS: Glucose,Whole Blood 179 mg/dL (70-110)
[2023-08-02] MEDS: SENNOSIDES-DOCUSATE SODIUM 1 EACH TAB PO SCH (20:59)
[2023-08-03] MEDS: SODIUM CHLORIDE 0.9% 1,000 ML IV SCH ×2 (00:39→20:36)
--- NOTE | 2023-08-03 05:34 | PN ---
PROGRESS NOTE SUBJECTIVE: This gentleman had bypass surgery and repair of mitral and tricuspid valve. He remains in junctional rhythm, using the pacemaker more often. Pacer is set at a back up rate of 50. I think he will benefit from a dual chamber pacemaker. I am recommending this to be performed by Dr. Rosario, who is his footwear sales leader. I will communicate with him and hopefully we can do this tomorrow. I discussed this with the patient. OBJECTIVE: VITAL SIGNS: Stable. HEART: S1, S2 heard normally. Short systolic murmur at left sternal border. LUNGS: Revealed bilateral improved air entry. ABDOMEN: Unchanged. LOWER EXTREMITIES: Unchanged. Prognosis remains guarded. Dual chamber pacemaker tomorrow. Ejection fraction is normal on July 20 prior to surgery. MMODL / IJN: [id number] /
[2023-08-03 06:02] LABS: Anisocytosis Slight; HCT 22.3 % (39.0-53.0); HGB 7.3 gm/dL (13.0-17.5); Hypochromasia Slight; MCH 31.7 pg (25.0-35.0); MCHC 32.9 g/dL (31.0-37.0); MCV 96.3 fL (80.0-100.0); Macrocytosis Slight; Platelet Count 219 k/uL (150-450); Poikilocytosis Moderate; RBC 2.32 m/uL (4.30-5.90); RDW 19.3 % (11.5-15.5); WBC 6.8 k/uL (3.8-10.6)
[2023-08-03 06:15] LABS: ALT 167 U/L (4-49); AST 117 U/L (17-59); African American GFR (CKD) 69 (>60 ml/min/1.73 sqM); Albumin 2.5 g/dL (3.5-5.0); Alkaline Phosphatase 77 U/L (38-126); Anion Gap 6 mmol/L; Blood Urea Nitrogen 37 mg/dL (9-20); Calcium 7.9 mg/dL (8.4-10.2); Carbon Dioxide 27 mmol/L (22-30); Chloride 98 mmol/L (98-107); Glucose 94 mg/dL (74-99); Non-African American GFR(CKD) 60 (>60 ml/min/1.73 sqM); Potassium 3.8 mmol/L (3.5-5.1); Sodium 131 mmol/L (137-145); Total Bilirubin 1.2 mg/dL (0.2-1.3); Total Protein 5.1 g/dL (6.3-8.2)
--- NOTE | 2023-08-03 06:46 | P.PN ---
Subjective Progress Note Date: 08/02/23 This is a 73-year-old male who presented to the emergency department with feeling of chest pain or shortness of breath. Patient reported some pressure and squeezing sensation along with a minimal cough and bloating. Patient reports he follows with Dr. Holloway in the outpatient setting with a past medical history of GERD, hyperlipidemia, hypertension, continues to smoke about 1 pack per day, has an occasional drink although not very often and denies any other illicit drug use. Chest x-ray in the ER shows interstitial infiltrates noted with mid and lower lung zones bilaterally that could reflect edema versus interstitial pneumonia. Patient underwent CTA of the chest showing no diagnostic evidence of PE, COPD with pulmonary fibrosis correlate for mild CHF with a dense coronary artery atherosclerosis noted along with incidental note of abdominal aortic aneurysm partially included measuring approximately 3.3 cm with nonspecific mediastinal and hilar lymphadenopathy. There is a prominent pulm onary artery that can be associated with pulmonary artery hypertension. 2-D echo was ordered and pending and was patient was admitted for chest pain for cardiology evaluation. Patient started on heparin as troponins was 0.031 and trending up at 0.043. Virology testing including influenza, RSV, and CoVid were all negative. WBC revealed a 10.8, hemoglobin 15.8, platelets 298, INR 1.0, sodium was 139 with a potassium of 3.9, BUN was 14 with creatinine of 0.86, total bili is 0.6, LFTs within normal limits, BNP was 546. Patient is currently maintained on 2 L of oxygen via nasal cannula for shortness of breath and oxygen saturations are 95-98% and patient reports he does not wear oxygen outpatient. Patient has been counseled extensively on complete tobacco cessation. 07/21/2023 Patient is seen and evaluated in follow-up with cardiology following along with CT surgery which has been consulted. Patient underwent cardiac catheterization showing triple-vessel heart disease and cardiothoracic has been consulted to discuss possible surgical intervention. Initiation of preoperative clearance has been ongoing and patient was scheduled to undergo NICOLAS today. Patient continues on 2 L via nasal cannula and reports his shortness of breath is improved and keeps asking if he could go home. Awaiting further evaluation from CT surgery and will discuss further with them about this. Family at the bedside with multiple questions and concerns were answered to the best of our ability. Patient's at bedside reports he smokes at least 2 packs a day of cigarettes and he mentioned only 1 pack per day and also drinks coffee from the time he wakes up until the time he goes to bed all day. Patient is afebrile denies chest pain or palpitations. No worsening shortness of breath noted. Patient was nothing by mouth for NICOLAS and diet resumed after procedure and tolerating with no reports of nausea or vomiting. Pro-calcitonin was normal and will discontinue empiric antibiotics. 07/22/2023 Patient is seen in follow-up today undergoing continued surgical work up for severe triple vessel disease. Patient continues to report he feels well and would like to go home prior to surgery. Patient is still requiring 2 liters via NC of . Multiple medical consultations following. Tentative surgery on Tuesday. Per cardiology, no plans for discharge prior to surgery at this time. Smoking cessation reinforced and patient remains on nicotine patch. Patient is afebrile and denies any chest pain or shortness of breath. Tolerating diet with no reported nausea or vomiting. 07/23/2023 Patient is currently lying in bed. Awake alert and oriented x3. Able to ambulate in the room. No complaints of chest pain or shortness of breath. No nausea vomiting abdominal pain or diarrhea. Saturating at 97% on room air. Patient has been afebrile. No cough or sputum production. Laboratory data showed sodium 135 potassium 3.7 chloride 100 bicarb is 27 BUN 2020 creatinine 0.9 and blood sugars 150. Patient is being continued on aspirin and statin, metoprolol and Aldactone. Cardiology and CT surgery is on board. Patient is scheduled for coronary artery bypass graft on 07/27/2023. 07/24/2023 Patient is currently in the telemetry unit. No complaints of chest pain or shortness of breath. No nausea vomiting abdominal pain or diarrhea. Able to ambulate in the room. Currently on oxygen at 2 L via nasal cannula and saturating at 100%. Patient has been afebrile. No acute overnight issues. P atient is using incentive spirometry. Scheduled for coronary revascularization surgery on 07/27/2023. Cardiology, pulmonary and CT surgery is on board. 07/25/2023 Patient is seen in follow-up this morning continued on 2 L via nasal cannula with good oxygen saturations and takes off frequently. Patient has been up walking around and labs within normal limits. Patient is using incentive spirometer as instructed and following heart healthy diet. Planning on CABG with valve repair or replacement on Tuesday with cardiothoracic surgery. Patient is currently afebrile with no reports of chest pain or worsening shortness of breath. Patient is tolerating diet and denies nausea or vomiting. 07/26/2023 Patient seen and evaluated in follow-up today and was told by operations supervisor 2nd shift that patient was sleeping sitting at the side of the bed and fell forward striking his nasal bone and head on the table. Maxillofacial CT was done showing concern for minimal nasal bone fracture. CT brain ordered without contrast as patient will be undergoing extensive CABG surgery in the a.m. and maintained on high intensity heparin throughout. This was discussed and relayed to cardiothoracic surgery and following protocol. Patient continues to require 2-3 L via nasal cannula otherwise denies worsening shortness of breath or chest pain. Patient denies having dizziness or lightheadedness or passing out at the time of this fall. No reports of nausea or vomiting noted and patient will be nothing by mouth at midnight. 07/28/2023 Patient is seen and evaluated in follow-up today currently in the ICU with multiple medical consultations following. Patient is status post triple-vessel coronary artery bypass grafting with complex mitral valve repair. Patient continues with multiple chest tubes and Mikana catheter indwelling Napoles catheter. Patient not requiring pressor support at this time is currently sitting up in the chair. Patient does have heart hugger noted. Patient also continues with insulin drip with blood sugars well controlled and we'll transition to sliding scale and long-acting as needed possibly in 24 hours. Patient is afebrile reports some chest wall discomfort although reports to feeling well. Chest x- ray today shows residual mild pulmonary vascular congestion with some i mprovement on the right. Hemoglobin 7.2 and has received 2 units of PRBCs yesterday. Will follow-up with repeat chest x-ray and labs in the a.m. 07/29/2023 Patient is seen in follow-up today continues to be in the ICU currently sitting up in the chair. Patient reports feeling fatigued today and not getting much sleep. Hemoglobin was found to be 6.9 and awaiting receive a unit of PRBC. Patient to be transitioned off insulin drip and will start with sliding scale with Accu-Cheks before meals and at bedtime and add long-acting if needed for tight glycemic control. Patient is afebrile with no increasing shortness of breath noted. Patient is maintained on 3 L via nasal cannula maintaining oxygen saturations above 90%. Chest x-ray today shows right lung airspace opacification is concerning for developing pneumonia with stable left lower lung airspace opacification. Patient to continue with incentive spirometer at least 10 times every hour while awake. Patient is tolerating diet although not much of an appetite right now and reports to being fatigued. Will continue heart healthy diabetic diet. 08/01/2023 Patient seen and evaluated in follow-up today continues to be in the ICU with multiple medical consultations following. Patient is continued on 2 L via nasal cannula with good oxygen saturations above 95%. Patient continues to be restless and almost no sleep and has been receiving as needed Xanax with melatonin. Patient with some pulmonary congestion did receive a dose of Lasix today. Hemoglobin is stable at 8.1. Sodium slightly low at 129 with a potassium of 4.0 and creatinine is 0.80. Liver functions are elevated with an AST of 431 and ALT is 213 and statin has been discontinued for now. Recommend follow-up labs in the a.m. Blood sugars well controlled on current regimen and will continue with Accu-Cheks before meals and at bedtime and sliding scale. Encouraged oral intake and increased activity as tolerated. 08/02/2023 Patient is seen today currently sitting up in the chair with at the bedside. Patient continues to appear exhausted. Sleep cycles are often patient is sleeping mostly during the day and has been up all night. Patient does have melatonin on although not helping and as needed Xanax. Multiple medical consultations following including cardiology and patient has had continued pacer wires and remains in junctional rhythm and cardiology recommending permanent pacemaker. Plan for pacemaker on 08/03/2023. Patient was given a dose of Lasix today. Hemoglobin stable. Patient continues to have cough that sounds conges ian needs encouragement on using heart hugger. at the bedside reports she has been helping him with this 48 doesn't remember to grab the handles when coughing. Encouraged incentive spirometer use and continued increased activity as tolerated. Review of systems: Constitutional: reports of fatigue, no fever, or chills, reports lack of sleep and increased anxiety , reports not sleeping at night Cardiovascular: No reports of chest pain or palpitations, reports chest wall discomfort Respiratory: No reports of worsening shortness of breath , reports cough GI: No reports of nausea, vomiting, or diarrhea : No reports of dysuria or retention Neurovascular: reports of generalized weakness All medications have been reviewed PHYSICAL EXAMINATION: GENERAL: The patient is alert and oriented x2-3, restless, anxious Well developed, well nourished. HEENT: Pupils are round and equally reacting to light. EOMI. no scleral icterus. No conjunctival pallor. Normocephalic, atraumatic. No pharyngeal erythema. No thyromegaly. No facial deformity noted on exam CARDIOVASCULAR: S1 and S2 muffled PULMONARY: diminished breath sounds bilaterally with no wheezing or rhonchi noted. Congested cough noted on exam ABDOMEN: soft. Nontender on exam. obese. non-distended, normoactive bowel sounds. No palpable organomegaly. MUSCULOSKELETAL: No joint swelling or deformity. EXTREMITIES: No cyanosis, clubbing, or pedal edema. NEUROLOGICAL: Gross neurological examination did not reveal any focal deficits. Diffusely weak SKIN: No rashes. Assessment: Chest pain status post cardiac catheterization found to have severe triple- vessel disease status post three-vessel CABG with complex mitral valve repair Acute hypoxic respiratory failure, present on admission, multifactorial, second seferino to severe triple vessel disease as well as acute CHF exacerbation with preserved EF Acute blood loss anemia and thrombocytopenia expected post surgery, hemoglobin stable today NSTEMI, present on admission with elevated troponins Mild leukocytosis, possibly reactive, resolved COPD, not in exacerbation Coronary artery atherosclerosis noted on CTA 3.3 cm abdominal aortic aneurysm noted on CTA Aortic valve murmur consistent with aortic stenosis, moderate History of GERD Hyperlipidemia history Hypertension history Continued ongoing nicotine dependence, smokes about 2 packs per day Excessive caffeine intake daily GI prophylaxis DVT prophylaxis Full code Plan: Patient is continued in the ICU with multiple medical consultations following as patient was found to have severe triple-vessel disease and is status post three-vessel CABG with complex mitral valve repair Cardiology following with plans for pacemaker placement as patient remains in junctional rhythm on temporary pacer. Dr. Rosario to perform on 08/03/2023 Continue on supplemental oxygen and wean as tolerated. Encourage incentive spirometer use at least 10 times every hour while awake Continue GI and DVT prophylaxis . Patient's hemoglobin stable above 8 today, monitor closely and transfuse as 7 or less Patient to continue with sliding scale with Accu-Cheks before meals and at bedtime and will add long-acting as needed if blood sugars start to elevate. Encouraged increased activity as tolerated with cardiac rehab following Continue telemetry monitoring Complete tobacco cessation and excessive caffeine use has been discussed extensively Xanax has been increased slightly along with melatonin as patient is not sl eeping and has increased anxiety with restlessness. Family reports he is sleeping mostly during the day and not at all at night Overall prognosis is guarded at this time. We will continue to follow during hospitalization. The impression and plan of care has been dictated by Delia Oakes, nurse practitioner as directed. MD Alyse I have performed a history and examination and MDM of this patient, discussed the same with the dictator, and agree with the dictator's assessment and plan as written ,documented as a scribe. Based on total visit time, I have performed more than 50% of the visit. Any additional findings or plans will be noted. Objective - Vital Signs Vital signs: Vital Signs Temp 97.9 F 08/02/23 08:00 Pulse 56 L 08/02/23 08:44 Resp 24 08/02/23 08:00 BP 94/48 08/02/23 08:00 Pulse Ox 97 08/02/23 08:00 FiO2 50 07/27/23 22:02 Intake & Output 08/01/23 08/02/23 08/02/23 18:59 06:59 18:59 Intake Total 1331 100 Output Total 385 401 Balance 946 -401 100 Weight 76.2 kg Intake: IV 115 Pressure bags (0.9 Sodium 15 Chloride) Sodium Chloride 0.9% 1, 100 000 ml @ 20 mls/hr IV . Q24H [facility] Rx#:[id number] Oral 1216 100 Output: Urine 385 400 Stool 1 Other: Voiding Method Urinal Urinal Bedside Commode Urinal # Voids 1 1 1 # Bowel Movements 1 1 1 ABP, PAP, CO, CI - Last Documented Arterial Blood Pressure 103/56 Pulmonary Artery Pressure 52/14 Cardiac Output 4 Cardiac Index 2.2 - Labs CBC & Chem 7: 08/03/23 05:29 08/03/23 05:29 Labs: Abnormal Lab Results - Last 24 Hours (Table) 08/01/23 08/01/23 08/01/23 Range/Units 11:40 16:13 20:09 RBC (4.30-5.90) m/uL Hgb (13.0-17.5) gm/dL Hct (39.0-53.0) % RDW (11.5-15.5) % Sodium (137-145) mmol/L Chloride (98-107) mmol/L BUN (9-20) mg/dL Glucose (74-99) mg/dL POC Glucose (mg/dL) 136 H 115 H 132 H (70-110) mg/dL Calcium (8.4-10.2) mg/dL Total Bilirubin (0.2-1.3) mg/dL AST (17-59) U/L ALT (4-49) U/L Total Protein (6.3-8.2) g/dL Albumin (3.5-5.0) g/dL 08/02/23 08/02/23 08/02/23 Range/Units 05:10 05:10 06:42 RBC 2.45 L (4.30-5.90) m/uL Hgb 7.8 L (13.0-17.5) gm/dL Hct 23.7 L (39.0-53.0) % RDW 18.9 H (11.5-15.5) % Sodium 130 L (137-145) mmol/L Chloride 97 L (98-107) mmol/L BUN 30 H (9-20) mg/dL Glucose 100 H (74-99) mg/dL POC Glucose (mg/dL) 115 H (70-110) mg/dL Calcium 8.0 L (8.4-10.2) mg/dL Total Bilirubin 1.5 H (0.2-1.3) mg/dL AST 292 H (17-59) U/L ALT 236 H (4-49) U/L Total Protein 5.2 L (6.3-8.2) g/dL Albumin 2.6 L (3.5-5.0) g/dL Microbiology - Last 24 Hours (Table) 07/28/23 10:55 Gram Stain - Final Pericardial Fluid Tissue Culture - Final 07/30/23 07:37 Gram Stain - Final Sputum Sputum Culture - Final
[2023-08-03] MEDS: INSULIN ASPART (NovoLOG) 100 UNIT/ML VIAL SQ SCH ×3 (06:57→20:44)
[2023-08-03] MEDS: POTASSIUM CHLORIDE 10 MEQ in WATER FOR INJECTION 1 100ML.BAG IVPB SCH ×2 (07:08→07:25)
[2023-08-03] MEDS: PANTOPRAZOLE 40 MG/10 ML VIAL IVP SCH ×2 (07:23→20:33)
[2023-08-03] MEDS: CITALOPRAM HYDROBROMIDE 20 MG TAB PO SCH (07:25)
[2023-08-03] MEDS: ASPIRIN 81 MG PO SCH (07:25)
[2023-08-03] MEDS: FONDAPARINUX 2.5 MG/0.5 ML SYRINGE SQ SCH (07:25)
[2023-08-03] MEDS: CHOLECALCIFEROL 25 MCG (1000 IU) TABLET PO SCH (07:25)
[2023-08-03] MEDS: CLOPIDOGREL 75 MG TAB PO SCH (07:25)
[2023-08-03] MEDS: NICOTINE 14MG/24HR PATCH TRANSDERM SCH (07:29)
[2023-08-03] MEDS: IPRATROPIUM-ALBUTEROL 3 ML NEB INHALATION SCH ×4 (07:39→19:44)
[2023-08-03] MEDS: MIDAZOLAM 2 MG/2 ML VIAL IVP ONE ×4 (07:40→17:48)
[2023-08-03] MEDS: fentaNYL (PF) 50 MCG/ML 2 ML AMP IVP ONE ×4 (07:40→17:48)
--- NOTE | 2023-08-03 07:43 | XR ---
EXAMINATION TYPE: XR chest 1V portable DATE OF EXAM: 08/03/2023 COMPARISON: 08/02/2023 INDICATION: Postcardiac surgery TECHNIQUE: Single frontal view of the chest is obtained. FINDINGS: The heart size is normal. The pulmonary vasculature is normal. There is improving appearance of the lung opacities. IMPRESSION: 1. Resolving volume overload. Residual remains. Continued follow-up is recommended
--- NOTE | 2023-08-03 08:33 | P.PN ---
Subjective Progress Note Date: 08/03/23 Principal diagnosis: Severe diffuse calcific triple-vessel coronary artery disease with chronically occluded RCA and first OM, unstable angina, severe mitral valve regurgitation wi th prolapse of P2 with ruptured chord, moderate tricuspid valve regurgitation with severe pulmonary hypertension. History of hypertension, hyperlipidemia, abdominal aortic aneurysm with calcification of the posterior aspect of the ascending aorta, chronic ongoing tobacco dependence, moderate restrictive lung disease, GERD, depression POD #7 triple-vessel coronary artery bypass grafting using the left internal mammary artery to the left anterior descending artery, reverse saphenous vein graft from the aorta to the first obtuse marginal artery, reverse saphenous vein graft from the aorta to the posterior descending artery, complex mitral valve repair with construction of two pairs of NeoChords to P2 and posterior ring annuloplasty using a 34 mm AnnuloFlex ring, tricuspid valve repair using a 28 mm MC3 ring, exclusion of the left atrial appendage using a 40 mm AtriClip, endoscopic harvesting of the left greater saphenous vein, intraoperative graft flow measurements using the [employer] system, intraoperative transesophageal echocardiogram and epiaortic scanning Postoperative acute blood loss anemia and thrombocytopenia, expected given hemodilution and cardiopulmonary bypass pump Paroxysmal atrial fibrillation, known common occurrence after open heart surgery, not a complication Elevated transaminases, likely medication induced Bradycardia, unexpected although possibly due to medication effect The patient was seen and examined this morning with Dr. Mcintosh sitting up in a recliner in no acute distress eating breakfast. Currently controlled afib with occasional paced rhythm due to bradycardia. No beta yamile nor amiodarone given for 72 hours. Anticipate permanent pacer placement today. Patient does complain of some post surgical pain, denies shortness of breath. Chest x-ray, labs reviewed. Currently on 2 L nasal cannula with oxygen saturation in the mid 90s. Able to achieve 750-1000 mL on his incentive spirometry. Patient has ambulated in the hallway. Patient has been a bit delirious and restless at times although this is to be expected as his normal sleep cycle starts at 3-4 AM until afternoon, so he is not sleeping very much at night as that is not normal for him, and every time he falls asleep during the day here he has woken up by various medical recruiter. Objective - Vital Signs Vital signs: Vital Signs Temp 98.1 F 08/03/23 08:00 Pulse 54 L 08/03/23 08:00 Resp 27 H 08/03/23 08:00 BP 106/43 08/03/23 08:00 Pulse Ox 32 L 08/03/23 07:43 FiO2 50 07/27/23 22:02 Intake & Output 08/02/23 08/03/23 08/03/23 18:59 06:59 18:59 Intake Total 540 Output Total 350 250 0 Balance 190 -250 0 Weight 75.9 kg Intake: Oral 540 Output: Urine 350 250 0 Other: Voiding Method Bedside Commode Bedside Commode Bedside Commode Urinal Urinal Urinal # Voids 1 0 0 # Bowel Movements 1 1 ABP, PAP, CO, CI - Last Documented Arterial Blood Pressure 103/56 Pulmonary Artery Pressure 52/14 Cardiac Output 4 Cardiac Index 2.2 - Exam CONSTITUTIONAL: Cooperative, no acute distress RESPIRATORY: Lungs sounds diminished bilaterally. Respirations even, nonlabored. Currently on 2 L nasal cannula with oxygen saturation 98%. Able to achieve 750-1000 mL on incentive spirometry. Strong loose cough. CARDIOVASCULAR: S1, S2 present. Irregular rate and rhythm, controlled A. fib, occasionally paced. Sternum stable. Palpable peripheral pulses bilaterally. No edema present. No calf pain or tenderness noted. Heart hugger in place with patient demonstrating appropriate use. Antiembolism stockings, SCDs present. GASTROINTESTINAL: Abdomen soft, nontender, nondistended. Active bowel sounds present 4 quadrants. Currently NPO. Positive bowel movement 08/03/23 GENITOURINARY: Continues to void clear yellow urine INTEGUMENTARY: Skin is warm and dry with evidence of good perfusion. Anterior chest incision well approximated and covered with dry intact dressing. Left lower extremity EVH site well approximated NEUROLOGIC: Cranial nerves II through XII intact MUSKULOSKELETAL: Able to move all extremities, strength equal bilaterally, gait normal PSYCHIATRIC: Alert and oriented to person place and time, intact judgment and insight, delirious at times INVASIVE LINES AND TUBES: A/V epicardial pacemaker wires present, connected to generator, AAI mode with backup rate 50 bpm - Allied health notes Allied health notes reviewed: nursing - Labs CBC & Chem 7: 08/03/23 05:29 08/03/23 05:29 Labs: Abnormal Lab Results - Last 24 Hours (Table) 08/02/23 08/02/23 08/02/23 Range/Units 12:21 16:25 20:49 RBC (4.30-5.90) m/uL Hgb (13.0-17.5) gm/dL Hct (39.0-53.0) % RDW (11.5-15.5) % Sodium (137-145) mmol/L BUN (9-20) mg/dL POC Glucose (mg/dL) 132 H 154 H 179 H (70-110) mg/dL Calcium (8.4-10.2) mg/dL AST (17-59) U/L ALT (4-49) U/L Total Protein (6.3-8.2) g/dL Albumin (3.5-5.0) g/dL 08/03/23 08/03/23 Range/Units 05:29 05:29 RBC 2.32 L (4.30-5.90) m/uL Hgb 7.3 L (13.0-17.5) gm/dL Hct 22.3 L (39.0-53.0) % RDW 19.3 H (11.5-15.5) % Sodium 131 L (137-145) mmol/L BUN 37 H (9-20) mg/dL POC Glucose (mg/dL) (70-110) mg/dL Calcium 7.9 L (8.4-10.2) mg/dL AST 117 H (17-59) U/L ALT 167 H (4-49) U/L Total Protein 5.1 L (6.3-8.2) g/dL Albumin 2.5 L (3.5-5.0) g/dL - Imaging and Cardiology Chest x-ray: report reviewed, image reviewed Assessment and Plan Assessment: Severe diffuse calcific triple-vessel coronary artery disease with chronically occluded RCA and first OM, unstable angina, status post 3V CABG Severe mitral valve regurgitation with prolapse of P2 with ruptured chord, status post complex mitral valve repair Moderate tricuspid valve regurgitation with severe pulmonary hypertension, status post tricuspid valve repair History of hypertension Hyperlipidemia, treated, cholesterol 121, LDL 60.5 Abdominal aortic aneurysm with calcification of the posterior aspect of the ascending aorta Chronic ongoing tobacco dependence Moderate restrictive lung disease, preoperative FEV1 54% of predicted GERD Depression Postoperative acute blood loss anemia and thrombocytopenia, expected Paroxysmal atrial fibrillation, bradycardia Elevated transaminases Plan: Continue to optimize medical management with low dose aspirin, plavix. Continue low dose ARB for afterload reduction with hold parameters. Statin discontinued today due to elevated transaminases Amiodarone discontinued. No anticoagulation until all lines/tubes have been discontinued Keep epicardial pacer wire connected to generator with backup rate. Plan is for permanent pacemaker placement today by Dr. Rosario Wean oxygen as tolerated. Encourage incentive spirometry 10 x every hour while awake. Bronchodilators per pulmonology Increase activity as tolerated. PT/OT/cardiac rehab consulted Will monitor daily labs and CXR. Electrolyte replacement per protocol. HIT panel negative. Will give IV Lasix GI/DVT prophylaxis Pain control with current medication regimen Insulin management per internal medicine, patient is not diabetic with preoperative HgbA1c 5.8%, but needs tight blood sugar control to prevent infection Continue to record strict accurate I/Os Daily weights Smoking cessation counseling and education provided More recommendations to follow based on patient's progress
[2023-08-03] MEDS ORDERED: ceFAZolin 1,000 MG in SODIUM CHLORIDE 0.9% IRRIG BTL 250 ML IRRIGATION ONE (09:21)
--- NOTE | 2023-08-03 09:59 | P.PN ---
Subjective Progress Note Date: 08/03/23 The patient is seen today 07/22/2023 in follow-up on the selective care unit. He is currently sitting up in bed. Awake and alert in no acute distress. He is maintaining O2 saturations in the 90s on 3 L/m per nasal cannula. He is pulling approximately 1200 ML's on his incentive spirometer. He continues to be worked up for possible bypass surgery along with mitral valve and tricuspid valve repairs. FEV1 value was 1.26 or 54% of predicted. NicoDerm patch remains in place. The patient is seen today 07/23/2023 in follow-up on the selective care unit. He is currently sitting up in a chair at the bedside. Awake and alert in no acute distress. Denies any worsening shortness of breath cough or congestion. Denies any chest pain. He is maintaining good O2 saturations up to 97% on room air. Afebrile. Sodium 135. Potassium 3.7. Bicarb 27. BUN 22. Creatinine 0.90. NicoDerm patch in place. The patient is seen today 07/24/2023 in follow-up on the selective care unit. Awake and alert in no acute distress. Sitting in bed. Denies any chest pain. No palpitations. No worsening shortness of breath or cough. He did have a nightmare and some confusion last evening. Oriented 3 today. Maintaining O2 saturations in the 90s on 2 L/m per nasal cannula. He is afebrile. Hemodynamically stable. NicoDerm patch in place. The patient is seen today 07/25/2023 in follow-up on the selective care unit. He is ambulating in his room. Awake and alert in no acute distress. Denies any chest pain. Denies any worsening shortness of breath, cough or congestion. He is maintaining good O2 saturations in the 90s on 2 L/m per nasal cannula. Afebrile. Hemodynamically stable. Sodium 134. Potassium 4.3. Bicarb 28. BUN 19. Creatinine 0.87. Glucose 113. NicoDerm patch remains in place. Progress note dated 07/26/2023. The patient is seen today in room 356. The patient is scheduled to have bypass grafting, on July 27. Currently he is on 2 L of oxygen. No IV fluids. He is sitting at the bedside. White count 5.4, hemoglobin 10.4, hematocrit 30.9, with a normal platelet count. Sodium 132, potassium 4.3, chlorides 98, CO2 29, BUN 21, creatinine 0.85. Chest x-ray shows changes of COPD, with mild interstitial pulmonary edema. Progress note dated 07/27/2023. The patient was seen this morning in room 356. The patient is scheduled to have open-heart surgery today, 07/27/2023. He is currently on 2 L of oxygen. Lab data today includes a glucose of 121. Lab data from July 26 have been reviewed. X-rays, medications, and other information has also been reviewed. Previous chest x-ray shows changes of COPD, with mild interstitial pulmonary edema. Progress note dated 07/28/2023. The patient is postop day #1, status post three-vessel bypass grafting, mitral valve repair, tricuspid valve repair, and exclusion of the left atrial appendage. The patient's currently been extubated to 4 L of oxygen. He was extubated on July 27, at nighttime. He is getting saline at 50 mL an hour, and an insulin drip at 2.5 units an hour. The patient is very anxious and received some benzodiazepine. White count 6.9, hemoglobin 7.2, hematocrit 20.9, and a platelet count of 50,000. Sodium 135, potassium 4.6, chlorides 105, CO2 26, BUN 23, and creatinine 0.94. Chest x-ray shows some mild pulmonary vascular congestion, and some basilar atelectasis. The endotracheal tube has been removed. Progress note dated 07/29/2023. This patient is seen today in room 266. He's postoperative day #2, status post three-vessel bypass grafting, mitral and tricuspid valve repair, and exclusion of the left atrial appendage. Patient is currently on 4 L of oxygen. He is g etting saline at 20 mL an hour. He will get 1 unit of packed red blood cells today. White count is 9, 11 6.9, hematocrit 20.4, and platelet count 82,000. Sodium 132, potassium 4.3, chlorides 104, CO2 25, BUN 23, and creatinine 0.82. Albumin is 2.7. Chest x-ray shows some airspace opacities at the right lung base. There is also some infiltrate or atelectasis at the left lung base. Progress note dated 07/30/2023. The patient is again seen today in room 266. He's postoperative day #3, status post three-vessel bypass grafting, mitral and tricuspid valve repair, and exclusion of left atrial appendage. Currently, the patient's sitting upright in the chair. He is on 2 L of oxygen. He continues on amiodarone at 0.5 mg/m. He is also getting saline at 20 mL an hour. According to the nurse, he had a pretty stable and uneventful night. White count 8.1, he will been 7.7, hematocrit 22.1, and platelet count 92,000. Sodium 130, potassium 4.5, chlorides 102, CO2 26, BUN 24, and creatinine 0.74. AST is 248. ALT is 79. Chest x-ray in my opinion show some cardiomegaly, and mild increased vascular congestion. Progress note dated 07/31/2023. 73-year-old male, seen in room 266. He has postoperative day #4, status post three-vessel bypass grafting, mitral repair, tricuspid valve repair, and exclusion of left atrial appendage. The patient is currently on 2 L of oxygen. He is getting saline at 20 mL an hour. He sitting in a chair next to his bed. He is getting about 750 mL on his incentive spirometer. White count of 6.3, hemoglobin 7.2, hematocrit 21.4, with platelet count of 120,000. Sodium 128, potassium 4, chloride 98, CO2 24, BUN 29, and creatinine 0.81. AST is 240, with an ALT of 127. Chest x-ray show some bibasilar atelectasis, tiny effusions, some postoperative changes. On today's evaluation of 08/01/2023, the patient is doing well on 2 L of oxygen by nasal cannula. His postoperative day #4. Hemodynamically stable. Cardiac rhythm is paced with an underlying junctional rhythm.. Using incentive spirometer. The patient had a follow-up chest x-ray today that shows cardiomegaly. There is some pulmonary vascular congestion and he was given 20 mg of IV Lasix today. He still has some patchy bilateral pulmonary infiltrates more so in the right upper lobe. His white cell count is at 9.7, hemoglobin is at 8.4, and sodium is at 129, potassium is at 4, BUN is at 28 with a creatinine of 0.8. LFTs are slightly abnormal with an AST of 431 and ALT of 231. Lipitor was accordingly placed on hold. He remains on aspirin. He remains on Plavix. He remains off metoprolol because of his underlying junctional cardiac rhythm. Anticoagulations with Arixtra 2.5 mg subcu once a day. No other significant events overnight. Neurologically intact. Communicating. Tolerating his diet. He had adequate bowel movements. Noted the patient had severe diffuse calcified triple-vessel coronary artery disease with severe mitral regurgitation and prolapse of P2 with a ruptured cord and tricuspid regurgitation with severe pulmonary hypertension. He underwent three-vessel bypass surgery and mitral valve repair and tricuspid valve repair. On today's evaluation of 08/02/2023, the patient is postop day #5. His recovering from his cardiac surgery. His underlying cardiac rhythm is A. fib with bradycardia and occasional junctional rhythm. He has a pacemaker as a backup at the rate of 50. He is not taking any beta blockers at this point in time. His being contemplated for a pacemaker insertion. Meanwhile, the patient is currently on 2 L of oxygen by nasal cannula. Is oxygen saturations 95%. Hemodynamically stable. Hemoglobin is at 7.8 slightly lower compared to yesterday. Sodium is at 130, BUN is at 30 with a creatinine of 1.09. Chest x-ray is essentially unchanged. On today's evaluation of 08/03/2023, the patient is currently postop day #6, the patient remains on 2 L of oxygen by nasal cannula. He has a backup pacing at the rate of 50 and the patient has going to undergo a pacemaker insertion today. With activity, his cardiac rhythm is in nature fibrillation and sometimes goes up in the mid 70s. While at rest, he seems to be more so bradycardic in place. He is still using the incentive spirometer. Is falling approximately 1000. Chest x-ray shows small bilateral pleural effusions. No evidence of any pneumothorax and there is postthoracotomy changes. He remains on 2 L. He is ambulating. He is a bit nervous and anxious. His surgical 1 site is dry clean and intact. He has a hemoglobin of 7.3, white cell count of 6.8, B is a 37 with a creatinine of 1.1. LFTs are improving. Sodium levels of 131. Not receiving any beta blockers. He is on aspirin and Plavix. He is also on Cozaar for blood pressure control. Blood pressures under adequate control for now. No significant hypertension or hypotension. No nausea. No emesis. No other significant events overnight. Neurologically intact and moving all 4 extr emities without any limitation. Objective - Vital Signs Vital signs: Vital Signs Temp 98.1 F 08/03/23 08:00 Pulse 54 L 08/03/23 08:00 Resp 27 H 08/03/23 08:00 BP 106/43 08/03/23 08:00 Pulse Ox 32 L 08/03/23 07:43 FiO2 50 07/27/23 22:02 Intake & Output 08/02/23 08/03/23 08/03/23 18:59 06:59 18:59 Intake Total 540 Output Total 350 250 0 Balance 190 -250 0 Weight 75.9 kg Intake: Oral 540 Output: Urine 350 250 0 Other: Voiding Method Bedside Commode Bedside Commode Bedside Commode Urinal Urinal Urinal # Voids 1 0 0 # Bowel Movements 1 1 ABP, PAP, CO, CI - Last Documented Arterial Blood Pressure 103/56 Pulmonary Artery Pressure 52/14 Cardiac Output 4 Cardiac Index 2.2 - Exam CONSTITUTIONAL: Cooperative, no acute distress RESPIRATORY: Lungs sounds diminished bilaterally. Respirations even, nonlabored. Currently on 2 L nasal cannula with oxygen saturation 98%. Able to achieve 750-1000 mL on incentive spirometry. Strong loose cough. CARDIOVASCULAR: S1, S2 present. Irregular rate and rhythm, controlled A. fib, occasionally paced. Sternum stable. Palpable peripheral pulses bilaterally. No edema present. No calf pain or tenderness noted. Heart hugger in place with patient demonstrating appropriate use. Antiembolism stockings, SCDs present. GASTROINTESTINAL: Abdomen soft, nontender, nondistended. Active bowel sounds present 4 quadrants. Currently NPO. Positive bowel movement 08/03/23 GENITOURINARY: Continues to void clear yellow urine INTEGUMENTARY: Skin is warm and dry with evidence of good perfusion. Anterior chest incision well approximated and covered with dry intact dressing. Left lower extremity EVH site well approximated NEUROLOGIC: Cranial nerves II through XII intact MUSKULOSKELETAL: Able to move all extremities, strength equal bilaterally, gait normal PSYCHIATRIC: Alert and oriented to person place and time, intact judgment and insight, delirious at times INVASIVE LINES AND TUBES: A/V epicardial pacemaker wires present, connected to generator, AAI mode with backup rate 50 bpm - Labs CBC & Chem 7: 08/03/23 05:29 08/03/23 05:29 Labs: Abnormal Lab Results - Last 24 Hours (Table) 08/02/23 08/02/23 08/02/23 Range/Units 12:21 16:25 20:49 RBC (4.30-5.90) m/uL Hgb (13.0-17.5) gm/dL Hct (39.0-53.0) % RDW (11.5-15.5) % Sodium (137-145) mmol/L BUN (9-20) mg/dL POC Glucose (mg/dL) 132 H 154 H 179 H (70-110) mg/dL Calcium (8.4-10.2) mg/dL AST (17-59) U/L ALT (4-49) U/L Total Protein (6.3-8.2) g/dL Albumin (3.5-5.0) g/dL 08/03/23 08/03/23 Range/Units 05:29 05:29 RBC 2.32 L (4.30-5.90) m/uL Hgb 7.3 L (13.0-17.5) gm/dL Hct 22.3 L (39.0-53.0) % RDW 19.3 H (11.5-15.5) % Sodium 131 L (137-145) mmol/L BUN 37 H (9-20) mg/dL POC Glucose (mg/dL) (70-110) mg/dL Calcium 7.9 L (8.4-10.2) mg/dL AST 117 H (17-59) U/L ALT 167 H (4-49) U/L Total Protein 5.1 L (6.3-8.2) g/dL Albumin 2.5 L (3.5-5.0) g/dL Assessment and Plan Plan: Postop day # 6, status post three-vessel bypass grafting, mitral valve repair, tricuspid valve repair, and exclusion of the left atrial appendage. Patient also status post mitral valve and tricuspid valve repair. Routine postoperative ventilator management, with extubation, on July 27. The patient is currently on oxygen at 2 L/m nasal cannula. All of the chest tubes are removed. Multi-vessel coronary artery disease and severe mitral regurgitation, being considered for open heart surgery with surgical revascularization and mitral valve replacement, however, the patient does want to proceed with this option. Junctional cardiac rhythm and currently the patient is a separate of 50 backup rate. He is gradually improving and is off beta blockers for now. The patient continues to require cardiac pacing and the plan is to proceed with a pacemaker insertion today. Exertional dyspnea, likely secondary to above. CTA of the chest was completed for PE protocol which demonstrated no diagnostic evidence of pulmonary embolism, COPD like changes, pulmonary fibrosis, trace bilateral pleural effusions, groundglass changes, posssibly mild venous congestion correlate for mild CHF exacerbation. Benign essential hypertension. Hyperlipidemia. Abdominal aortic aneurysm, measuring 3.3 cm incidentally found on chest CTA. GERD. Chronic and ongoing nicotine dependence. Acute Anemia, hemoglobin of 7.3, expected outcome of surgery Plan: Monitor the cardiac rhythm is being contemplated for a pacemaker insertion regarding his bradycardia and junctional rhythm. His underlying rhythm is atrial fibrillation / junctional bradycardia/ slow A. fib He has a backup pacemaker at the rate of 50 Pacemaker insertion today Increase mobility getting a Lasix patient is getting Lasix Continue using the spirometer Keep the patient off beta blockers for now Increase mobility Chest x-ray was noted We'll continue to follow
--- NOTE | 2023-08-03 13:16 | PN ---
PROGRESS NOTE SUBJECTIVE: Mr. Lucio remains in a junctional rhythm with some intermittent atrial fib type picture. He is going for a permanent pacemaker today. His LV function is fairly well preserved. He is status post bypass surgery and mitral and tricuspid valve repair. OBJECTIVE: VITAL SIGNS: Stable. HEART: S1, S2 heard normally. Short systolic murmur at the apex and left lower sternal border. LUNGS: Revealed decent air entry. ABDOMEN: Unchanged. LOWER EXTREMITIES: Unchanged. MMODL / IJN: [id number] /
--- NOTE | 2023-08-03 13:28 | P.PN ---
Subjective Progress Note Date: 08/03/23 This is a 73-year-old male who presented to the emergency department with feeling of chest pain or shortness of breath. Patient reported some pressure and squeezing sensation along with a minimal cough and bloating. Patient reports he follows with Dr. Holloway in the outpatient setting with a past medical history of GERD, hyperlipidemia, hypertension, continues to smoke about 1 pack per day, has an occasional drink although not very often and denies any other illicit drug use. Chest x-ray in the ER shows interstitial infiltrates noted with mid and lower lung zones bilaterally that could reflect edema versus interstitial pneumonia. Patient underwent CTA of the chest showing no diagnostic evidence of PE, COPD with pulmonary fibrosis correlate for mild CHF with a dense coronary artery atherosclerosis noted along with incidental note of abdominal aortic aneurysm partially included measuring approximately 3.3 cm with nonspecific mediastinal and hilar lymphadenopathy. There is a prominent pulm onary artery that can be associated with pulmonary artery hypertension. 2-D echo was ordered and pending and was patient was admitted for chest pain for cardiology evaluation. Patient started on heparin as troponins was 0.031 and trending up at 0.043. Virology testing including influenza, RSV, and CoVid were all negative. WBC revealed a 10.8, hemoglobin 15.8, platelets 298, INR 1.0, sodium was 139 with a potassium of 3.9, BUN was 14 with creatinine of 0.86, total bili is 0.6, LFTs within normal limits, BNP was 546. Patient is currently maintained on 2 L of oxygen via nasal cannula for shortness of breath and oxygen saturations are 95-98% and patient reports he does not wear oxygen outpatient. Patient has been counseled extensively on complete tobacco cessation. 07/21/2023 Patient is seen and evaluated in follow-up with cardiology following along with CT surgery which has been consulted. Patient underwent cardiac catheterization showing triple-vessel heart disease and cardiothoracic has been consulted to discuss possible surgical intervention. Initiation of preoperative clearance has been ongoing and patient was scheduled to undergo NICOLAS today. Patient continues on 2 L via nasal cannula and reports his shortness of breath is improved and keeps asking if he could go home. Awaiting further evaluation from CT surgery and will discuss further with them about this. Family at the bedside with multiple questions and concerns were answered to the best of our ability. Patient's at bedside reports he smokes at least 2 packs a day of cigarettes and he mentioned only 1 pack per day and also drinks coffee from the time he wakes up until the time he goes to bed all day. Patient is afebrile denies chest pain or palpitations. No worsening shortness of breath noted. Patient was nothing by mouth for NICOLAS and diet resumed after procedure and tolerating with no reports of nausea or vomiting. Pro-calcitonin was normal and will discontinue empiric antibiotics. 07/22/2023 Patient is seen in follow-up today undergoing continued surgical work up for severe triple vessel disease. Patient continues to report he feels well and would like to go home prior to surgery. Patient is still requiring 2 liters via NC of . Multiple medical consultations following. Tentative surgery on Tuesday. Per cardiology, no plans for discharge prior to surgery at this time. Smoking cessation reinforced and patient remains on nicotine patch. Patient is afebrile and denies any chest pain or shortness of breath. Tolerating diet with no reported nausea or vomiting. 07/23/2023 Patient is currently lying in bed. Awake alert and oriented x3. Able to ambulate in the room. No complaints of chest pain or shortness of breath. No nausea vomiting abdominal pain or diarrhea. Saturating at 97% on room air. Patient has been afebrile. No cough or sputum production. Laboratory data showed sodium 135 potassium 3.7 chloride 100 bicarb is 27 BUN 2020 creatinine 0.9 and blood sugars 150. Patient is being continued on aspirin and statin, metoprolol and Aldactone. Cardiology and CT surgery is on board. Patient is scheduled for coronary artery bypass graft on 07/27/2023. 07/24/2023 Patient is currently in the telemetry unit. No complaints of chest pain or shortness of breath. No nausea vomiting abdominal pain or diarrhea. Able to ambulate in the room. Currently on oxygen at 2 L via nasal cannula and saturating at 100%. Patient has been afebrile. No acute overnight issues. P atient is using incentive spirometry. Scheduled for coronary revascularization surgery on 07/27/2023. Cardiology, pulmonary and CT surgery is on board. 07/25/2023 Patient is seen in follow-up this morning continued on 2 L via nasal cannula with good oxygen saturations and takes off frequently. Patient has been up walking around and labs within normal limits. Patient is using incentive spirometer as instructed and following heart healthy diet. Planning on CABG with valve repair or replacement on Tuesday with cardiothoracic surgery. Patient is currently afebrile with no reports of chest pain or worsening shortness of breath. Patient is tolerating diet and denies nausea or vomiting. 07/26/2023 Patient seen and evaluated in follow-up today and was told by shift engineer that patient was sleeping sitting at the side of the bed and fell forward striking his nasal bone and head on the table. Maxillofacial CT was done showing concern for minimal nasal bone fracture. CT brain ordered without contrast as patient will be undergoing extensive CABG surgery in the a.m. and maintained on high intensity heparin throughout. This was discussed and relayed to cardiothoracic surgery and following protocol. Patient continues to require 2-3 L via nasal cannula otherwise denies worsening shortness of breath or chest pain. Patient denies having dizziness or lightheadedness or passing out at the time of this fall. No reports of nausea or vomiting noted and patient will be nothing by mouth at midnight. 07/28/2023 Patient is seen and evaluated in follow-up today currently in the ICU with multiple medical consultations following. Patient is status post triple-vessel coronary artery bypass grafting with complex mitral valve repair. Patient continues with multiple chest tubes and Seaforth catheter indwelling Napoles catheter. Patient not requiring pressor support at this time is currently sitting up in the chair. Patient does have heart hugger noted. Patient also continues with insulin drip with blood sugars well controlled and we'll transition to sliding scale and long-acting as needed possibly in 24 hours. Patient is afebrile reports some chest wall discomfort although reports to feeling well. Chest x- ray today shows residual mild pulmonary vascular congestion with some i mprovement on the right. Hemoglobin 7.2 and has received 2 units of PRBCs yesterday. Will follow-up with repeat chest x-ray and labs in the a.m. 07/29/2023 Patient is seen in follow-up today continues to be in the ICU currently sitting up in the chair. Patient reports feeling fatigued today and not getting much sleep. Hemoglobin was found to be 6.9 and awaiting receive a unit of PRBC. Patient to be transitioned off insulin drip and will start with sliding scale with Accu-Cheks before meals and at bedtime and add long-acting if needed for tight glycemic control. Patient is afebrile with no increasing shortness of breath noted. Patient is maintained on 3 L via nasal cannula maintaining oxygen saturations above 90%. Chest x-ray today shows right lung airspace opacification is concerning for developing pneumonia with stable left lower lung airspace opacification. Patient to continue with incentive spirometer at least 10 times every hour while awake. Patient is tolerating diet although not much of an appetite right now and reports to being fatigued. Will continue heart healthy diabetic diet. 08/01/2023 Patient seen and evaluated in follow-up today continues to be in the ICU with multiple medical consultations following. Patient is continued on 2 L via nasal cannula with good oxygen saturations above 95%. Patient continues to be restless and almost no sleep and has been receiving as needed Xanax with melatonin. Patient with some pulmonary congestion did receive a dose of Lasix today. Hemoglobin is stable at 8.1. Sodium slightly low at 129 with a potassium of 4.0 and creatinine is 0.80. Liver functions are elevated with an AST of 431 and ALT is 213 and statin has been discontinued for now. Recommend follow-up labs in the a.m. Blood sugars well controlled on current regimen and will continue with Accu-Cheks before meals and at bedtime and sliding scale. Encouraged oral intake and increased activity as tolerated. 08/02/2023 Patient is seen today currently sitting up in the chair with at the bedside. Patient continues to appear exhausted. Sleep cycles are often patient is sleeping mostly during the day and has been up all night. Patient does have melatonin on although not helping and as needed Xanax. Multiple medical consultations following including cardiology and patient has had continued pacer wires and remains in junctional rhythm and cardiology recommending permanent pacemaker. Plan for pacemaker on 08/03/2023. Patient was given a dose of Lasix today. Hemoglobin stable. Patient continues to have cough that sounds conges ian needs encouragement on using heart hugger. at the bedside reports she has been helping him with this 48 doesn't remember to grab the handles when coughing. Encouraged incentive spirometer use and continued increased activity as tolerated. 08/03/2023 Patient is seen and evaluated in follow-up currently undergoing permanent pacemaker placement with Dr. Rosario today. Multiple medical consultations following the patient is continued on 2 L via nasal cannula. Chest x-ray today shows resolving volume overloadsome residual remaining. Patient is maintained on breathing inhalational treatments and will continue. Blood sugars well controlled and will continue with Accu-Cheks before meals and at bedtime and sliding scale as needed. Labs reviewed today showing a slightly low potassium of 3.8 and was given potassium supplementation. Sodium 131 which is improved and liver functions improving as AST is 117 and ALT is 167. Hemoglobin is stable at 7.3 today and recommended transfuses 7 or less. Review of systems: Constitutional: reports of fatigue, no fever, or chills, reports lack of sleep and increased anxiety , reports not sleeping at night Cardiovascular: No reports of chest pain or palpitations, reports chest wall discomfort Respiratory: No reports of worsening shortness of breath , reports cough GI: No reports of nausea, vomiting, or diarrhea : No reports of dysuria or retention Neurovascular: reports of generalized weakness All medications have been reviewed PHYSICAL EXAMINATION: GENERAL: The patient is alert and oriented x2-3, restless, anxious Well developed, well nourished. HEENT: Pupils are round and equally reacting to light. EOMI. no scleral icterus. No conjunctival pallor. Normocephalic, atraumatic. No pharyngeal erythema. No thyromegaly. No facial deformity noted on exam CARDIOVASCULAR: S1 and S2 muffled PULMONARY: diminished breath sounds bilaterally with no wheezing or rhonchi noted. Congested cough noted on exam ABDOMEN: soft. Nontender on exam. obese. non-distended, normoactive bowel sounds. No palpable organomegaly. MUSCULOSKELETAL: No joint swelling or deformity. EXTREMITIES: No cyanosis, clubbing, or pedal edema. NEUROLOGICAL: Gross neurological examination did not reveal any focal deficits. Diffusely weak SKIN: No rashes. Assessment: Chest pain status post cardiac catheterization found to have severe triple- vessel disease status post three-vessel CABG with complex mitral valve repair Acute hypoxic respiratory failure, present on admission, multifactorial, secondary to severe triple vessel disease as well as acute CHF exacerbation with preserved EF Acute blood loss anemia and thrombocytopenia expected post surgery, hemoglobin stable today NSTEMI, present on admission with elevated troponins Mild leukocytosis, possibly reactive, resolved COPD, not in exacerbation Coronary artery atherosclerosis noted on CTA 3.3 cm abdominal aortic aneurysm noted on CTA Aortic valve murmur consistent with aortic stenosis, moderate History of GERD Hyperlipidemia history Hypertension history Continued ongoing nicotine dependence, smokes about 2 packs per day Excessive caffeine intake daily GI prophylaxis DVT prophylaxis Full code Plan: Patient is continued in the ICU with multiple medical consultations following as patient is status post three-vessel CABG with complex mitral valve repair Cardiology following with plans for pacemaker placement as patient remains in junctional rhythm on temporary pacer which is set at [address] Rosario to perform today and currently pending Continue on supplemental oxygen and wean as tolerated. Encourage incentive spirometer use at least 10 times every hour while awake Continue GI and DVT prophylaxis . Patient's hemoglobin stable above 7.3 today, no active bleeding noted, monitor closely and transfuse as 7 or less Patient to continue with sliding scale with Accu-Cheks before meals and at bedtime and will add long-acting as needed if blood sugars start to elevate. Blood sugars have been well controlled on just sliding scale. Encouraged increased activity as tolerated with cardiac rehab following Continue telemetry monitoring Patient has Xanax as needed and when necessary melatonin at sleep and discuss with patient and family about staying awake and sitting up out of the bed mostly during the day with windows and shades open patient states better at night Overall prognosis is guarded at this time. We will continue to follow during hospitalization. The impression and plan of care has been dictated by Delia Oakes, nurse practitioner as directed. MD Alyse I have performed a history and examination and MDM of this patient, discussed the same with the dictator, and agree with the dictator's assessment and plan as written ,documented as a scribe. Based on total visit time, I have performed more than 50% of the visit. Any additional findings or plans will be noted. Objective - Vital Signs Vital signs: Vital Signs Temp 98.1 F 08/03/23 08:00 Pulse 59 L 08/03/23 10:00 Resp 27 H 08/03/23 10:00 BP 105/52 08/03/23 10:00 Pulse Ox 92 L 08/03/23 10:00 FiO2 50 07/27/23 22:02 Intake & Output 08/02/23 08/03/23 08/03/23 18:59 06:59 18:59 Intake Total 540 100 Output Total 350 250 0 Balance 190 -250 100 Weight 75.9 kg Intake: Oral 540 100 Output: Urine 350 250 0 Other: Voiding Method Bedside Commode Bedside Commode Bedside Commode Urinal Urinal Urinal # Voids 1 0 0 # Bowel Movements 1 1 ABP, PAP, CO, CI - Last Documented Arterial Blood Pressure 103/56 Pulmonary Artery Pressure 52/14 Cardiac Output 4 Cardiac Index 2.2 - Labs CBC & Chem 7: 08/03/23 05:29 08/03/23 05:29 Labs: Abnormal Lab Results - Last 24 Hours (Table) 08/02/23 08/02/23 08/03/23 Range/Units 16:25 20:49 05:29 RBC 2.32 L (4.30-5.90) m/uL Hgb 7.3 L (13.0-17.5) gm/dL Hct 22.3 L (39.0-53.0) % RDW 19.3 H (11.5-15.5) % Sodium (137-145) mmol/L BUN (9-20) mg/dL POC Glucose (mg/dL) 154 H 179 H (70-110) mg/dL Calcium (8.4-10.2) mg/dL AST (17-59) U/L ALT (4-49) U/L Total Protein (6.3-8.2) g/dL Albumin (3.5-5.0) g/dL 08/03/23 Range/Units 05:29 RBC (4.30-5.90) m/uL Hgb (13.0-17.5) gm/dL Hct (39.0-53.0) % RDW (11.5-15.5) % Sodium 131 L (137-145) mmol/L BUN 37 H (9-20) mg/dL POC Glucose (mg/dL) (70-110) mg/dL Calcium 7.9 L (8.4-10.2) mg/dL AST 117 H (17-59) U/L ALT 167 H (4-49) U/L Total Protein 5.1 L (6.3-8.2) g/dL Albumin 2.5 L (3.5-5.0) g/dL
[2023-08-03] MEDS ORDERED: IOPAMIDOL-370 100ML BTL IVP ONE (17:20)
[2023-08-03] MEDS ORDERED: SODIUM CHLORIDE 0.9% 1,000 ML IV ONE (17:30)
[2023-08-03] MEDS ORDERED: LIDOCAINE 1% INJ 10MG/ML (20 ML MDV) ONE (17:40)
[2023-08-03] MEDS ORDERED: LIDOCAINE 1% INJ 10MG/ML (20 ML MDV) SQ ONE (17:44)
[2023-08-03 17:58] LABS: Glucose,Whole Blood 98 mg/dL (70-110)
[2023-08-03] MEDS: ASCORBIC ACID 500 MG TAB PO SCH (19:41)
[2023-08-03] MEDS: LOSARTAN 25 MG TAB PO SCH (20:32)
[2023-08-03] MEDS: BENZOCAINE/MENTHOL LOZENG 1 EACH LOZENGE MUCOUS MEM PRN (20:32)
[2023-08-03] MEDS: ALPRAZolam 0.25 MG TAB PO PRN (20:33)
[2023-08-03] MEDS: MELATONIN 3 MG TABLET PO PRN (20:33)
[2023-08-03] MEDS: FERROUS SULFATE 325 MG TAB PO SCH (20:33)
[2023-08-03] MEDS: SENNOSIDES-DOCUSATE SODIUM 1 EACH TAB PO SCH (20:36)
[2023-08-03 20:42] LABS: Glucose,Whole Blood 112 mg/dL (70-110)
--- NOTE | 2023-08-03 20:59 | P.OP ---
Description of Procedure: CARDIOLOGY PROCEDURE NOTE Emr Implementation Specialist: Dr. Sawyer Rosario Procedure performed: Insertion dual chamber permanent pacemaker Site: Left subclavian Indications: Sick Sinus Syndrome with AFib with HR in 40-50's, 3-5 second blocks, requiring continued pacing from epicardial leads, symptomatic bradycardia s/p AVR and mitral valve replacement with exercise intolerance with need for Beta yamile and Amiodarone. There are no reversible causes of his bradycardia Complications: None Blood Loss: Minimal Description of Procedure: After the risks, benefits, and alternatives of the above-mentioned procedure was explained in detail with the patient, informed consent was obtained. The patient was taken to the cardiac catheterization suite where the left subclavian area was sterily prepped and draped in the usual fashion. One percent lidocaine was used to anesthetize the left subclavian area. Twenty milliliters of Isoview 370 contrast was injected into the left antecubital vein to allow for direct visualization of the left subclavian vein under fluoroscopy. A 1.5 inch incision was made utilizing a #15 blade in the left subclavian site. Hemostasis was made complete. Electrocautery along with digital blunt dissection was utilized to dissect to the level of the pectoralis muscle fascia and create a pocket large enough to accommodate the generator. A thin walled micro puncuture needle was used to cannulate the left subclavian vein. A guide-wire was inserted through the needle into the vascular lumen under fluoroscopic guidance. The needle was removed. Another thin walled micr puncture needle was used to again cannulate the left subclavian vein. A guide-wire was inserted through the needle into the vascular lumen under fluoroscopic guidance. The needle was removed and both guide-wires were attached to the field. A venous sheath and dilator were advanced over the guidewire into the vascular lumen under fluoroscopic guidance. The dilator and guidewire were then removed. A right ventricular bipolar lead was inserted into the sheath and advanced under fluoroscopic guidance into the right ventricle under fluoroscopic guidance. Adequate sensing and pacing thresholds were achieved and the lead was screwed into place in the RV apex. The sheath was then torn away. The lead collar was advanced and anchored into place utilizing #0 silk suture. Next, another venous sheath and dilator were advanced under fluoroscopic guidance into the vascular lumen over the guidewire. After removal of the dilator and guidewire, a right atrial bipolar lead was inserted into this sheath and advanced under fluoroscopic guidance into the right atrium. The lead was positioned into the right atrial appendage. Adequate sensing and pacing thresholds were then achieved with patient being in Aflutter at the time and the lead was screwed into place. The sheath was then torn away. The lead collar was advanced and anchored into place utilizing #0 silk suture. The leads were then inserted into the appropriate position into the generator. They were then secured with the setscrew provided. The leads and generator were inserted into the pocket with the leads posterior. The subcutaneous tissue was approximated utilizing #2.0 and 3.0 vicryl in an interrupted stitch fashion. The dermal layer was approximated utilizing #4.0 vicryl. The area was cleansed with sterile saline and dried. A sterile 4x4 dressing was applied and the patient was transferred to the post catheterization holding area in stable and satisfactory condition. The patient tolerated the procedure well. Generator Data Risk Mgr: [employer] Brand: [id number] [place] XT DR MRI Model #: W1DR01 Serial#: [id number] Right Atrial Bipolar Lead Data: Type: Active fixation lead Risk Mgr: [employer] Model#: 5076-45 Serial Number: [id number] Right Ventricular Bipolar Lead Data: Type: Active fixation lead Risk Mgr: [employer] Model #: 5076-52 Serial #: [id number] Stimulation Thresholds: Right atrial bipolar lead pacing and sensing thresholds Voltage: Afib Impedance: 399 ohms P-wave sensin.6 mV Right Ventricular bipolar lead pacing and sensing thresholds Pulse Width: 0.4ms Voltage: 0.5 volts Impedance: 589 ohms R-wave sensin.0 mV Parameter Setting: Pacing mode is DDDR Lower rate 60 bpm Upper rate 130 bpm Impressions: 1. Successful implantation of a dual chamber permanent pacemaker in the left pectoral site. Plan: 1. Routine post procedure care will be instituted as well as outpatient follow- up surveillance.
--- NOTE | 2023-08-03 22:10 | XR ---
EXAMINATION TYPE: XR chest 1V portable DATE OF EXAM: 08/03/2023 COMPARISON: 08/03/2023 earlier exam INDICATION: Lead placement check TECHNIQUE: Single frontal view of the chest is obtained. FINDINGS: The heart size is mildly prominent. Sternotomy wires are present from previous CABG.. The pulmonary vasculature is prominent. Scattered bilateral lung infiltrates are present. This is greater in the right upper lobe. Correlate for pulmonary edema. Atelectasis and pneumonia could be considered There is placement of a left-sided dual-lead pacemaker. No pneumothorax is evident. Leads have typica l orientation. IMPRESSION: 1. Correlate for pulmonary edema. 2. No pneumothorax post pacemaker placement. Leads in the typical orientation.
[2023-08-04 05:11] LABS: Anisocytosis Moderate; HCT 24.6 % (39.0-53.0); Hypochromasia Moderate; MCH 32.2 pg (25.0-35.0); MCHC 32.4 g/dL (31.0-37.0); MCV 99.4 fL (80.0-100.0); Macrocytosis Moderate; Mean Platelet Volume 9.3; Platelet Count 225 k/uL (150-450); Poikilocytosis Moderate; RBC 2.48 m/uL (4.30-5.90); RDW 20.6 % (11.5-15.5); WBC 7.3 k/uL (3.8-10.6)
[2023-08-04 05:50] LABS: ALT 117 U/L (4-49); AST 68 U/L (17-59); African American GFR (CKD) >90 (>60 ml/min/1.73 sqM); Albumin 2.6 g/dL (3.5-5.0); Alkaline Phosphatase 81 U/L (38-126); Anion Gap 8 mmol/L; Blood Urea Nitrogen 31 mg/dL (9-20); Calcium 7.9 mg/dL (8.4-10.2); Carbon Dioxide 23 mmol/L (22-30); Chloride 102 mmol/L (98-107); Glucose 83 mg/dL (74-99); Magnesium 2.5 mg/dL (1.6-2.3); Non-African American GFR(CKD) 85 (>60 ml/min/1.73 sqM); Potassium 4.1 mmol/L (3.5-5.1); Sodium 133 mmol/L (137-145); Total Protein 5.5 g/dL (6.3-8.2)
[2023-08-04 07:11] LABS: Glucose,Whole Blood 94 mg/dL (70-110)
[2023-08-04] MEDS: INSULIN ASPART (NovoLOG) 100 UNIT/ML VIAL SQ SCH ×4 (07:38→20:52)
[2023-08-04] MEDS ORDERED: FUROSEMIDE 10 MG/ML 2 ML VIAL IV ONE ×2 (07:43→21:00)
--- NOTE | 2023-08-04 07:51 | XR ---
EXAMINATION TYPE: XR chest 2V DATE OF EXAM: 08/04/2023 COMPARISON: 08/03/2023 HISTORY: 73-year-old male postcardiac surgery TECHNIQUE: PA and lateral views FINDINGS: Heart mildly enlarged. Left anterior chest wall pacemaker generator with right atrial and right ventr icular leads. Median sternotomy wires. Post-CABG clips. Cardiac annuloplasty ring noted. Diffuse inte rstitial and patchy opacities persist but are improving from prior. Trace left pleural effusion. IMPRESSION: Some interval improvement. Residual patchy pulmonary edema remains. Trace left pleural effusion.
--- NOTE | 2023-08-04 08:27 | P.PN ---
Subjective Progress Note Date: 08/04/23 Principal diagnosis: Severe diffuse calcific triple-vessel coronary artery disease with chronically occluded RCA and first OM, unstable angina, severe mitral valve regurgitation wi th prolapse of P2 with ruptured chord, moderate tricuspid valve regurgitation with severe pulmonary hypertension. History of hypertension, hyperlipidemia, abdominal aortic aneurysm with calcification of the posterior aspect of the ascending aorta, chronic ongoing tobacco dependence, moderate restrictive lung disease, GERD, depression POD #8 triple-vessel coronary artery bypass grafting using the left internal mammary artery to the left anterior descending artery, reverse saphenous vein graft from the aorta to the first obtuse marginal artery, reverse saphenous vein graft from the aorta to the posterior descending artery, complex mitral valve repair with construction of two pairs of NeoChords to P2 and posterior ring annuloplasty using a 34 mm AnnuloFlex ring, tricuspid valve repair using a 28 mm MC3 ring, exclusion of the left atrial appendage using a 40 mm AtriClip, endoscopic harvesting of the left greater saphenous vein, intraoperative graft flow measurements using the Kibin system, intraoperative transesophageal echocardiogram and epiaortic scanning Postoperative acute blood loss anemia and thrombocytopenia, expected given hemodilution and cardiopulmonary bypass pump Paroxysmal atrial fibrillation with symptomatic bradycardia/SSS even off beta yamile and amio, afib is common after open heart surgery and is somewhat expected, bradycardia/SSS w/o BB is unexpected, unknown cause, no clear reversible cause Elevated transaminases, likely medication induced POD #1 insertion dual chamber permanent pacemaker The patient was seen and examined this morning sitting up in a recliner in no acute distress eating breakfast. Currently V-paced at 60 BPM, occasionally HR h igher than 60, afib. Patient does complain of some post surgical pain, denies shortness of breath. Chest x-ray, labs reviewed. Currently on 2 L nasal cannula with oxygen saturation in the high 90s, only 89% when trialled on room air. Able to achieve 1000 mL on his incentive spirometry. Patient has ambulated in the hallway. Objective - Vital Signs Vital signs: Vital Signs Temp 97.5 F L 08/04/23 04:00 Pulse 64 08/04/23 07:00 Resp 26 H 08/04/23 07:00 BP 119/54 08/04/23 07:00 Pulse Ox 95 08/04/23 07:00 FiO2 50 07/27/23 22:02 Intake & Output 0908/04/23 08/04/23 18:59 06:59 18:59 Intake Total 350 600 50 Output Total 0 500 200 Balance 350 100 -150 Weight 75.7 kg Intake: IV 250 600 50 Sodium Chloride 0.9% 1, 550 50 000 ml @ 50 mls/hr IV . Q20H COUNT INCLUDES THE [facility] Rx#:[id number] ceFAZolin 2 gm In Sodium 50 Chloride 0.9% 50 ml @ 100 mls/hr IVPB ONCE ONE Rx# :[id number] Oral 100 Output: Urine 0 500 200 Other: Voiding Method Bedside Commode Bedside Commode Urinal Urinal # Voids 0 0 1 ABP, PAP, CO, CI - Last Documented Arterial Blood Pressure 103/56 Pulmonary Artery Pressure 52/14 Cardiac Output 4 Cardiac Index 2.2 - Exam CONSTITUTIONAL: Cooperative, no acute distress RESPIRATORY: Lungs sounds diminished bilaterally. Respirations even, nonlabored. Currently on 2 L nasal cannula with oxygen saturation 98%, only 89% on room air. Able to achieve 1000 mL on incentive spirometry. Strong loose cough. CARDIOVASCULAR: S1, S2 present. Irregular rate and rhythm, Vpaced at 60 BPM. Sternum stable. Palpable peripheral pulses bilaterally. No edema present. No calf pain or tenderness noted. Heart hugger in place with patient demonstrating appropriate use. Antiembolism stockings, SCDs present. GASTROINTESTINAL: Abdomen soft, nontender, nondistended. Active bowel sounds present 4 quadrants. Tolerating diet. Positive bowel movement 08/03/23 GENITOURINARY: Continues to void clear yellow urine INTEGUMENTARY: Skin is warm and dry with evidence of good perfusion. Anterior chest incision well approximated and covered with dry intact dressing. Left lower extremity EVH site well approximated. Left ant chest wall pacer site covered with dry intact dressing NEUROLOGIC: Cranial nerves II through XII intact MUSKULOSKELETAL: Able to move all extremities, strength equal bilaterally, gait normal PSYCHIATRIC: Alert and oriented to person place and time, intact judgment and insight INVASIVE LINES AND TUBES: A/V epicardial pacemaker wires present, grounded - Allied health notes Allied health notes reviewed: nursing - Labs CBC & Chem 7: 08/04/23 04:39 08/04/23 04:39 Labs: Abnormal Lab Results - Last 24 Hours (Table) 08/03/23 08/04/23 08/04/23 Range/Units 20:41 04:39 04:39 RBC 2.48 L (4.30-5.90) m/uL Hgb 8.0 L (13.0-17.5) gm/dL Hct 24.6 L (39.0-53.0) % RDW 20.6 H (11.5-15.5) % Sodium 133 L (137-145) mmol/L BUN 31 H (9-20) mg/dL POC Glucose (mg/dL) 112 H (70-110) mg/dL Calcium 7.9 L (8.4-10.2) mg/dL Magnesium 2.5 H (1.6-2.3) mg/dL AST 68 H (17-59) U/L ALT 117 H (4-49) U/L Total Protein 5.5 L (6.3-8.2) g/dL Albumin 2.6 L (3.5-5.0) g/dL - Imaging and Cardiology Chest x-ray: report reviewed, image reviewed Assessment and Plan Assessment: Severe diffuse calcific triple-vessel coronary artery disease with chronically occluded RCA and first OM, unstable angina, status post 3V CABG Severe mitral valve regurgitation with prolapse of P2 with ruptured chord, status post complex mitral valve repair Moderate tricuspid valve regurgitation with severe pulmonary hypertension, status post tricuspid valve repair History of hypertension Hyperlipidemia, treated, cholesterol 121, LDL 60.5 Abdominal aortic aneurysm with calcification of the posterior aspect of the ascending aorta Chronic ongoing tobacco dependence Moderate restrictive lung disease, preoperative FEV1 54% of predicted GERD Depression Postoperative acute blood loss anemia and thrombocytopenia, expected Paroxysmal atrial fibrillation, bradycardia/SSS, S/P permanent pacemaker Elevated transaminases, resolving Plan: Continue to optimize medical management with low dose aspirin, plavix. Low dose beta yamile and statin readded. Continue low dose ARB for afterload reduction with hold parameters Amiodarone restarted. Will start Eliquis tomorrow and stop plavix Pacemaker device check, then will discontinue epicardial pacer wires, pt to be on bedrest 1 hour post wire removal Wean oxygen as tolerated. Encourage incentive spirometry 10 x every hour while awake. Bronchodilators per pulmonology Increase activity as tolerated. PT/OT/cardiac rehab consulted Will monitor daily labs and CXR. Electrolyte replacement per protocol. HIT panel negative. Will give IV Lasix GI/DVT prophylaxis Pain control with current medication regimen Insulin management per internal medicine, patient is not diabetic with preoperative HgbA1c 5.8%, but needs tight blood sugar control to prevent infection Continue to record strict accurate I/Os Daily weights Smoking cessation counseling and education provided Will place transfer orders for [facility] [address], may transfer when bed available More recommendations to follow based on patient's progress
[2023-08-04] MEDS: PANTOPRAZOLE 40 MG/10 ML VIAL IVP SCH ×2 (08:31→20:35)
[2023-08-04] MEDS: NICOTINE 14MG/24HR PATCH TRANSDERM SCH (08:31)
[2023-08-04] MEDS: FONDAPARINUX 2.5 MG/0.5 ML SYRINGE SQ SCH (08:32)
[2023-08-04] MEDS: CLOPIDOGREL 75 MG TAB PO SCH (08:35)
[2023-08-04] MEDS: AMIODARONE 200 MG TAB PO SCH ×2 (08:35→20:35)
[2023-08-04] MEDS: ASPIRIN 81 MG PO SCH (08:35)
[2023-08-04] MEDS: CITALOPRAM HYDROBROMIDE 20 MG TAB PO SCH (08:35)
[2023-08-04] MEDS: CHOLECALCIFEROL 25 MCG (1000 IU) TABLET PO SCH (08:36)
[2023-08-04] MEDS: METOPROLOL TARTRATE 12.5 MG TAB PO SCH ×2 (08:41→20:35)
[2023-08-04] MEDS: IPRATROPIUM-ALBUTEROL 3 ML NEB INHALATION SCH ×4 (08:45→20:42)
--- NOTE | 2023-08-04 10:52 | P.PN ---
Subjective Progress Note Date: 08/04/23 The patient is seen today 07/22/2023 in follow-up on the selective care unit. He is currently sitting up in bed. Awake and alert in no acute distress. He is maintaining O2 saturations in the 90s on 3 L/m per nasal cannula. He is pulling approximately 1200 ML's on his incentive spirometer. He continues to be worked up for possible bypass surgery along with mitral valve and tricuspid valve repairs. FEV1 value was 1.26 or 54% of predicted. NicoDerm patch remains in place. The patient is seen today 07/23/2023 in follow-up on the selective care unit. He is currently sitting up in a chair at the bedside. Awake and alert in no acute distress. Denies any worsening shortness of breath cough or congestion. Denies any chest pain. He is maintaining good O2 saturations up to 97% on room air. Afebrile. Sodium 135. Potassium 3.7. Bicarb 27. BUN 22. Creatinine 0.90. NicoDerm patch in place. The patient is seen today 07/24/2023 in follow-up on the selective care unit. Awake and alert in no acute distress. Sitting in bed. Denies any chest pain. No palpitations. No worsening shortness of breath or cough. He did have a nightmare and some confusion last evening. Oriented 3 today. Maintaining O2 saturations in the 90s on 2 L/m per nasal cannula. He is afebrile. Hemodynamically stable. NicoDerm patch in place. The patient is seen today 07/25/2023 in follow-up on the selective care unit. He is ambulating in his room. Awake and alert in no acute distress. Denies any chest pain. Denies any worsening shortness of breath, cough or congestion. He is maintaining good O2 saturations in the 90s on 2 L/m per nasal cannula. Afebrile. Hemodynamically stable. Sodium 134. Potassium 4.3. Bicarb 28. BUN 19. Creatinine 0.87. Glucose 113. NicoDerm patch remains in place. Progress note dated 07/26/2023. The patient is seen today in room 356. The patient is scheduled to have bypass grafting, on July 27. Currently he is on 2 L of oxygen. No IV fluids. He is sitting at the bedside. White count 5.4, hemoglobin 10.4, hematocrit 30.9, with a normal platelet count. Sodium 132, potassium 4.3, chlorides 98, CO2 29, BUN 21, creatinine 0.85. Chest x-ray shows changes of COPD, with mild interstitial pulmonary edema. Progress note dated 07/27/2023. The patient was seen this morning in room 356. The patient is scheduled to have open-heart surgery today, 07/27/2023. He is currently on 2 L of oxygen. Lab data today includes a glucose of 121. Lab data from July 26 have been reviewed. X-rays, medications, and other information has also been reviewed. Previous chest x-ray shows changes of COPD, with mild interstitial pulmonary edema. Progress note dated 07/28/2023. The patient is postop day #1, status post three-vessel bypass grafting, mitral valve repair, tricuspid valve repair, and exclusion of the left atrial appendage. The patient's currently been extubated to 4 L of oxygen. He was extubated on July 27, at nighttime. He is getting saline at 50 mL an hour, and an insulin drip at 2.5 units an hour. The patient is very anxious and received some benzodiazepine. White count 6.9, hemoglobin 7.2, hematocrit 20.9, and a platelet count of 50,000. Sodium 135, potassium 4.6, chlorides 105, CO2 26, BUN 23, and creatinine 0.94. Chest x-ray shows some mild pulmonary vascular congestion, and some basilar atelectasis. The endotracheal tube has been removed. Progress note dated 07/29/2023. This patient is seen today in room 266. He's postoperative day #2, status post three-vessel bypass grafting, mitral and tricuspid valve repair, and exclusion of the left atrial appendage. Patient is currently on 4 L of oxygen. He is g etting saline at 20 mL an hour. He will get 1 unit of packed red blood cells today. White count is 9, 11 6.9, hematocrit 20.4, and platelet count 82,000. Sodium 132, potassium 4.3, chlorides 104, CO2 25, BUN 23, and creatinine 0.82. Albumin is 2.7. Chest x-ray shows some airspace opacities at the right lung base. There is also some infiltrate or atelectasis at the left lung base. Progress note dated 07/30/2023. The patient is again seen today in room 266. He's postoperative day #3, status post three-vessel bypass grafting, mitral and tricuspid valve repair, and exclusion of left atrial appendage. Currently, the patient's sitting upright in the chair. He is on 2 L of oxygen. He continues on amiodarone at 0.5 mg/m. He is also getting saline at 20 mL an hour. According to the nurse, he had a pretty stable and uneventful night. White count 8.1, he will been 7.7, hematocrit 22.1, and platelet count 92,000. Sodium 130, potassium 4.5, chlorides 102, CO2 26, BUN 24, and creatinine 0.74. AST is 248. ALT is 79. Chest x-ray in my opinion show some cardiomegaly, and mild increased vascular congestion. Progress note dated 07/31/2023. 73-year-old male, seen in room 266. He has postoperative day #4, status post three-vessel bypass grafting, mitral repair, tricuspid valve repair, and exclusion of left atrial appendage. The patient is currently on 2 L of oxygen. He is getting saline at 20 mL an hour. He sitting in a chair next to his bed. He is getting about 750 mL on his incentive spirometer. White count of 6.3, hemoglobin 7.2, hematocrit 21.4, with platelet count of 120,000. Sodium 128, potassium 4, chloride 98, CO2 24, BUN 29, and creatinine 0.81. AST is 240, with an ALT of 127. Chest x-ray show some bibasilar atelectasis, tiny effusions, some postoperative changes. On today's evaluation of 08/01/2023, the patient is doing well on 2 L of oxygen by nasal cannula. His postoperative day #4. Hemodynamically stable. Cardiac rhythm is paced with an underlying junctional rhythm.. Using incentive spirometer. The patient had a follow-up chest x-ray today that shows cardiomegaly. There is some pulmonary vascular congestion and he was given 20 mg of IV Lasix today. He still has some patchy bilateral pulmonary infiltrates more so in the right upper lobe. His white cell count is at 9.7, hemoglobin is at 8.4, and sodium is at 129, potassium is at 4, BUN is at 28 with a creatinine of 0.8. LFTs are slightly abnormal with an AST of 431 and ALT of 231. Lipitor was accordingly placed on hold. He remains on aspirin. He remains on Plavix. He remains off metoprolol because of his underlying junctional cardiac rhythm. Anticoagulations with Arixtra 2.5 mg subcu once a day. No other significant events overnight. Neurologically intact. Communicating. Tolerating his diet. He had adequate bowel movements. Noted the patient had severe diffuse calcified triple-vessel coronary artery disease with severe mitral regurgitation and prolapse of P2 with a ruptured cord and tricuspid regurgitation with severe pulmonary hypertension. He underwent three-vessel bypass surgery and mitral valve repair and tricuspid valve repair. On today's evaluation of 08/02/2023, the patient is postop day #5. His recovering from his cardiac surgery. His underlying cardiac rhythm is A. fib with bradycardia and occasional junctional rhythm. He has a pacemaker as a backup at the rate of 50. He is not taking any beta blockers at this point in time. His being contemplated for a pacemaker insertion. Meanwhile, the patient is currently on 2 L of oxygen by nasal cannula. Is oxygen saturations 95%. Hemodynamically stable. Hemoglobin is at 7.8 slightly lower compared to yesterday. Sodium is at 130, BUN is at 30 with a creatinine of 1.09. Chest x-ray is essentially unchanged. On today's evaluation of 08/03/2023, the patient is currently postop day #6, the patient remains on 2 L of oxygen by nasal cannula. He has a backup pacing at the rate of 50 and the patient has going to undergo a pacemaker insertion today. With activity, his cardiac rhythm is in nature fibrillation and sometimes goes up in the mid 70s. While at rest, he seems to be more so bradycardic in place. He is still using the incentive spirometer. Is falling approximately 1000. Chest x-ray shows small bilateral pleural effusions. No evidence of any pneumothorax and there is postthoracotomy changes. He remains on 2 L. He is ambulating. He is a bit nervous and anxious. His surgical 1 site is dry clean and intact. He has a hemoglobin of 7.3, white cell count of 6.8, B is a 37 with a creatinine of 1.1. LFTs are improving. Sodium levels of 131. Not receiving any beta blockers. He is on aspirin and Plavix. He is also on Cozaar for blood pressure control. Blood pressures under adequate control for now. No significant hypertension or hypotension. No nausea. No emesis. No other significant events overnight. Neurologically intact and moving all 4 extr emities without any limitation. On 08/04/2023, the patient is postop day #7. The patient underwent a dual- chamber pacemaker insertion yesterday as the patient was having sick sinus syndrome with atrial fibrillation and heart rate that were quite low and occasional junctional beats. Based on that, a dual-chamber pacemaker was inserted without any complications. The patient's current cardiac rhythm. Beta blockers were started on him and currently is on metoprolol 12.5 mg by mouth twice a day. He remains on amiodarone 200 mg by mouth twice a day. Anticoagulation is also to be started today. No other complaints otherwise for now. He is on oxygen at 2 L with a pulse ox of 97%. His blood work shows a WBC count of 7.3, hemoglobin of 8 and a platelet count of 225. BUN is at 31 with a creatinine of 0.8. Sodium level is at 133. He is afebrile. He is using the incentive spirometer. He is ambulating. He is tolerating his diet. No issues with pain. Using the incentive spirometer and reaching 1000. Objective - Vital Signs Vital signs: Vital Signs Temp 97.5 F L 08/04/23 04:00 Pulse 60 08/04/23 10:00 Resp 24 08/04/23 10:00 BP 119/90 08/04/23 10:00 Pulse Ox 97 08/04/23 08:49 FiO2 50 07/27/23 22:02 Intake & Output 08/03/23 08/04/23 08/04/23 18:59 06:59 18:59 Intake Total 350 600 300 Output Total 0 500 400 Balance 350 100 -100 Weight 75.7 kg Intake: IV 250 600 60 Invasive Line 8 10 Sodium Chloride 0.9% 1, 550 50 000 ml @ 50 mls/hr IV . Q20H [facility] Rx#:[id number] ceFAZolin 2 gm In Sodium 50 Chloride 0.9% 50 ml @ 100 mls/hr IVPB ONCE ONE Rx# :[id number] Oral 100 240 Output: Urine 0 500 400 Stool 0 Other: Voiding Method Bedside Commode Bedside Commode Urinal Urinal Urinal # Voids 0 0 0 ABP, PAP, CO, CI - Last Documented Arterial Blood Pressure 103/56 Pulmonary Artery Pressure 52/14 Cardiac Output 4 Cardiac Index 2.2 - Exam CONSTITUTIONAL: Cooperative, no acute distress, currently on 2 L of oxygen by nasal cannula. Head exam was generally normal. There was no scleral icterus or corneal arcus. Mucous membranes were moist. Neck was supple and without jugular venous distension, thyromegaly, or carotid bruits. Carotids were easily palpable bilaterally. There was no adenopathy. RESPIRATORY: Lungs sounds diminished bilaterally. Respirations even, nonlabored. Currently on 2 L nasal cannula with oxygen saturation 98%. Able to achieve 750-1000 mL on incentive spirometry. Strong loose cough. CARDIOVASCULAR: S1, S2 present. The patient has a paced rhythm, and the patient has a pacemaker pocket over the left anterior chest area. Surgical site is dry clean and intact.. Sternum stable. Palpable peripheral pulses bilaterally. No edema present. No calf pain or tenderness noted. Heart hugger in place with patient demonstrating appropriate use. Antiembolism stockings, SCDs present. GASTROINTESTINAL: Abdomen soft, nontender, nondistended. Active bowel sounds present 4 quadrants. GENITOURINARY: Continues to void clear yellow urine INTEGUMENTARY: Skin is warm and dry with evidence of good perfusion. Anterior chest incision well approximated and covered with dry intact dressing. Left lower extremity EVH site well approximated NEUROLOGIC: Cranial nerves II through XII intact MUSKULOSKELETAL: Able to move all extremities, strength equal bilaterally, gait normal PSYCHIATRIC: Alert and oriented to person place and time, intact judgment and insight, delirious at times - Labs CBC & Chem 7: 08/04/23 04:39 08/04/23 04:39 Labs: Abnormal Lab Results - Last 24 Hours (Table) 08/03/23 08/04/23 08/04/23 Range/Units 20:41 04:39 04:39 RBC 2.48 L (4.30-5.90) m/uL Hgb 8.0 L (13.0-17.5) gm/dL Hct 24.6 L (39.0-53.0) % RDW 20.6 H (11.5-15.5) % Sodium 133 L (137-145) mmol/L BUN 31 H (9-20) mg/dL POC Glucose (mg/dL) 112 H (70-110) mg/dL Calcium 7.9 L (8.4-10.2) mg/dL Magnesium 2.5 H (1.6-2.3) mg/dL AST 68 H (17-59) U/L ALT 117 H (4-49) U/L Total Protein 5.5 L (6.3-8.2) g/dL Albumin 2.6 L (3.5-5.0) g/dL Assessment and Plan Plan: Postop day # 7, status post three-vessel bypass grafting, mitral valve repair, tricuspid valve repair, and exclusion of the left atrial appendage. Patient also status post mitral valve and tricuspid valve repair. Routine postoperative ventilator management, with extubation, on July 27. The patient is currently on oxygen at 2 L/m nasal cannula. All of the chest tubes are removed. Multi-vessel coronary artery disease and severe mitral regurgitation, being considered for open heart surgery with surgical revascularization and mitral valve replacement, however, the patient does want to proceed with this option. Sick sinus syndrome along with atrial fibrillation/Junctional cardiac rhythm and patient is post pacemaker insertion the patient has a dual-chamber pacemaker in place. Benign essential hypertension. Hyperlipidemia. Abdominal aortic aneurysm, measuring 3.3 cm incidentally found on chest CTA. GERD. Chronic and ongoing nicotine dependence. Acute Anemia, hemoglobin of 7.3, expected outcome of surgery Plan: Dual-chamber pacemaker inserted Patient started on metoprolol 12.5 mg twice a day The patient was started on anticoagulation with Eliquis Continue aspirin a Epicardial pacer wires to be removed today Continue using the spirometer Keep the patient off beta blockers for now Increase mobility Chest x-ray was noted We'll continue to follow
[2023-08-04 11:43] LABS: Glucose,Whole Blood 108 mg/dL (70-110)
[2023-08-04] MEDS: ASCORBIC ACID 500 MG TAB PO SCH (12:10)
[2023-08-04] MEDS: LOSARTAN 25 MG TAB PO SCH (12:10)
[2023-08-04] MEDS: FERROUS SULFATE 325 MG TAB PO SCH (12:10)
[2023-08-04 16:19] LABS: Glucose,Whole Blood 134 mg/dL (70-110)
--- NOTE | 2023-08-04 17:01 | P.PN ---
Subjective Progress Note Date: 08/04/23 This is a 73-year-old male who presented to the emergency department with feeling of chest pain or shortness of breath. Patient reported some pressure and squeezing sensation along with a minimal cough and bloating. Patient reports he follows with Dr. Holloway in the outpatient setting with a past medical history of GERD, hyperlipidemia, hypertension, continues to smoke about 1 pack per day, has an occasional drink although not very often and denies any other illicit drug use. Chest x-ray in the ER shows interstitial infiltrates noted with mid and lower lung zones bilaterally that could reflect edema versus interstitial pneumonia. Patient underwent CTA of the chest showing no diagnostic evidence of PE, COPD with pulmonary fibrosis correlate for mild CHF with a dense coronary artery atherosclerosis noted along with incidental note of abdominal aortic aneurysm partially included measuring approximately 3.3 cm with nonspecific mediastinal and hilar lymphadenopathy. There is a prominent pulm onary artery that can be associated with pulmonary artery hypertension. 2-D echo was ordered and pending and was patient was admitted for chest pain for cardiology evaluation. Patient started on heparin as troponins was 0.031 and trending up at 0.043. Virology testing including influenza, RSV, and CoVid were all negative. WBC revealed a 10.8, hemoglobin 15.8, platelets 298, INR 1.0, sodium was 139 with a potassium of 3.9, BUN was 14 with creatinine of 0.86, total bili is 0.6, LFTs within normal limits, BNP was 546. Patient is currently maintained on 2 L of oxygen via nasal cannula for shortness of breath and oxygen saturations are 95-98% and patient reports he does not wear oxygen outpatient. Patient has been counseled extensively on complete tobacco cessation. 07/21/2023 Patient is seen and evaluated in follow-up with cardiology following along with CT surgery which has been consulted. Patient underwent cardiac catheterization showing triple-vessel heart disease and cardiothoracic has been consulted to discuss possible surgical intervention. Initiation of preoperative clearance has been ongoing and patient was scheduled to undergo NICOLAS today. Patient continues on 2 L via nasal cannula and reports his shortness of breath is improved and keeps asking if he could go home. Awaiting further evaluation from CT surgery and will discuss further with them about this. Family at the bedside with multiple questions and concerns were answered to the best of our ability. Patient's at bedside reports he smokes at least 2 packs a day of cigarettes and he mentioned only 1 pack per day and also drinks coffee from the time he wakes up until the time he goes to bed all day. Patient is afebrile denies chest pain or palpitations. No worsening shortness of breath noted. Patient was nothing by mouth for NICOLAS and diet resumed after procedure and tolerating with no reports of nausea or vomiting. Pro-calcitonin was normal and will discontinue empiric antibiotics. 07/22/2023 Patient is seen in follow-up today undergoing continued surgical work up for severe triple vessel disease. Patient continues to report he feels well and would like to go home prior to surgery. Patient is still requiring 2 liters via NC of . Multiple medical consultations following. Tentative surgery on Tuesday. Per cardiology, no plans for discharge prior to surgery at this time. Smoking cessation reinforced and patient remains on nicotine patch. Patient is afebrile and denies any chest pain or shortness of breath. Tolerating diet with no reported nausea or vomiting. 07/23/2023 Patient is currently lying in bed. Awake alert and oriented x3. Able to ambulate in the room. No complaints of chest pain or shortness of breath. No nausea vomiting abdominal pain or diarrhea. Saturating at 97% on room air. Patient has been afebrile. No cough or sputum production. Laboratory data showed sodium 135 potassium 3.7 chloride 100 bicarb is 27 BUN 2020 creatinine 0.9 and blood sugars 150. Patient is being continued on aspirin and statin, metoprolol and Aldactone. Cardiology and CT surgery is on board. Patient is scheduled for coronary artery bypass graft on 07/27/2023. 07/24/2023 Patient is currently in the telemetry unit. No complaints of chest pain or shortness of breath. No nausea vomiting abdominal pain or diarrhea. Able to ambulate in the room. Currently on oxygen at 2 L via nasal cannula and saturating at 100%. Patient has been afebrile. No acute overnight issues. P atient is using incentive spirometry. Scheduled for coronary revascularization surgery on 07/27/2023. Cardiology, pulmonary and CT surgery is on board. 07/25/2023 Patient is seen in follow-up this morning continued on 2 L via nasal cannula with good oxygen saturations and takes off frequently. Patient has been up walking around and labs within normal limits. Patient is using incentive spirometer as instructed and following heart healthy diet. Planning on CABG with valve repair or replacement on Tuesday with cardiothoracic surgery. Patient is currently afebrile with no reports of chest pain or worsening shortness of breath. Patient is tolerating diet and denies nausea or vomiting. 07/26/2023 Patient seen and evaluated in follow-up today and was told by shift nurse manager that patient was sleeping sitting at the side of the bed and fell forward striking his nasal bone and head on the table. Maxillofacial CT was done showing concern for minimal nasal bone fracture. CT brain ordered without contrast as patient will be undergoing extensive CABG surgery in the a.m. and maintained on high intensity heparin throughout. This was discussed and relayed to cardiothoracic surgery and following protocol. Patient continues to require 2-3 L via nasal cannula otherwise denies worsening shortness of breath or chest pain. Patient denies having dizziness or lightheadedness or passing out at the time of this fall. No reports of nausea or vomiting noted and patient will be nothing by mouth at midnight. 07/28/2023 Patient is seen and evaluated in follow-up today currently in the ICU with multiple medical consultations following. Patient is status post triple-vessel coronary artery bypass grafting with complex mitral valve repair. Patient continues with multiple chest tubes and Buchtel catheter indwelling Napoles catheter. Patient not requiring pressor support at this time is currently sitting up in the chair. Patient does have heart hugger noted. Patient also continues with insulin drip with blood sugars well controlled and we'll transition to sliding scale and long-acting as needed possibly in 24 hours. Patient is afebrile reports some chest wall discomfort although reports to feeling well. Chest x- ray today shows residual mild pulmonary vascular congestion with some i mprovement on the right. Hemoglobin 7.2 and has received 2 units of PRBCs yesterday. Will follow-up with repeat chest x-ray and labs in the a.m. 07/29/2023 Patient is seen in follow-up today continues to be in the ICU currently sitting up in the chair. Patient reports feeling fatigued today and not getting much sleep. Hemoglobin was found to be 6.9 and awaiting receive a unit of PRBC. Patient to be transitioned off insulin drip and will start with sliding scale with Accu-Cheks before meals and at bedtime and add long-acting if needed for tight glycemic control. Patient is afebrile with no increasing shortness of breath noted. Patient is maintained on 3 L via nasal cannula maintaining oxygen saturations above 90%. Chest x-ray today shows right lung airspace opacification is concerning for developing pneumonia with stable left lower lung airspace opacification. Patient to continue with incentive spirometer at least 10 times every hour while awake. Patient is tolerating diet although not much of an appetite right now and reports to being fatigued. Will continue heart healthy diabetic diet. 08/01/2023 Patient seen and evaluated in follow-up today continues to be in the ICU with multiple medical consultations following. Patient is continued on 2 L via nasal cannula with good oxygen saturations above 95%. Patient continues to be restless and almost no sleep and has been receiving as needed Xanax with melatonin. Patient with some pulmonary congestion did receive a dose of Lasix today. Hemoglobin is stable at 8.1. Sodium slightly low at 129 with a potassium of 4.0 and creatinine is 0.80. Liver functions are elevated with an AST of 431 and ALT is 213 and statin has been discontinued for now. Recommend follow-up labs in the a.m. Blood sugars well controlled on current regimen and will continue with Accu-Cheks before meals and at bedtime and sliding scale. Encouraged oral intake and increased activity as tolerated. 08/02/2023 Patient is seen today currently sitting up in the chair with at the bedside. Patient continues to appear exhausted. Sleep cycles are often patient is sleeping mostly during the day and has been up all night. Patient does have melatonin on although not helping and as needed Xanax. Multiple medical consultations following including cardiology and patient has had continued pacer wires and remains in junctional rhythm and cardiology recommending permanent pacemaker. Plan for pacemaker on 08/03/2023. Patient was given a dose of Lasix today. Hemoglobin stable. Patient continues to have cough that sounds conges ian needs encouragement on using heart hugger. at the bedside reports she has been helping him with this 48 doesn't remember to grab the handles when coughing. Encouraged incentive spirometer use and continued increased activity as tolerated. 08/03/2023 Patient is seen and evaluated in follow-up currently undergoing permanent pacemaker placement with Dr. Rosario today. Multiple medical consultations following the patient is continued on 2 L via nasal cannula. Chest x-ray today shows resolving volume overloadsome residual remaining. Patient is maintained on breathing inhalational treatments and will continue. Blood sugars well controlled and will continue with Accu-Cheks before meals and at bedtime and sliding scale as needed. Labs reviewed today showing a slightly low potassium of 3.8 and was given potassium supplementation. Sodium 131 which is improved and liver functions improving as AST is 117 and ALT is 167. Hemoglobin is stable at 7.3 today and recommended transfuses 7 or less. 08/04/2023 Patient is seen in follow-up today status post pacemaker placement continues in the ICU with multiple medical consultations following. Patient continues on 2 L via nasal cannula maintaining oxygen saturations above 95%. Chest x-ray today shows some interval improvement with residual patchy pulmonary edema remains with a trace a left pleural effusion. Patient continues to report a cough with congestion as well as periods of feeling like he is unable to catch his breath. Patient has been up and working with physical therapy and reports to feeling exhausted. Patient continues to have issues with no sleep at night and nursing staff has been working with the patient extensively on staying awake during the day for proper sleep at night. Patient is afebrile with no reports of worsening shortness of breath or chest pains. Patient has chest wall pain and is extr gene sensitive at the pacemaker site. Hemoglobin is stable at 8 today and other labs reviewed and within normal limits. Liver functions are trending down and AST is now 68 with an ALT of 117. Follow-up chest x-ray and labs are ordered. Review of systems: Constitutional: reports of fatigue, no fever, or chills, reports lack of sleep and increased anxiety , reports persistently not sleeping at night and feels exhausted Cardiovascular: No reports of chest pain or palpitations, reports chest wall discomfort Respiratory: No reports of worsening shortness of breath , reports cough GI: No reports of nausea, vomiting, or diarrhea : No reports of dysuria or retention Neurovascular: reports of generalized weakness All medications have been reviewed PHYSICAL EXAMINATION: GENERAL: The patient is alert and oriented x3, restless, anxious Well developed, well nourished. HEENT: Pupils are round and equally reacting to light. EOMI. no scleral icterus. No conjunctival pallor. Normocephalic, atraumatic. No pharyngeal erythema. No thyromegaly. No facial deformity noted on exam CARDIOVASCULAR: S1 and S2 muffled PULMONARY: diminished breath sounds bilaterally with no wheezing or rhonchi noted. Congested cough noted on exam ABDOMEN: soft. Nontender on exam. obese. non-distended, normoactive bowel sounds. No palpable organomegaly. MUSCULOSKELETAL: No joint swelling or deformity. EXTREMITIES: No cyanosis, clubbing, or pedal edema. NEUROLOGICAL: Gross neurological examination did not reveal any focal deficits. Diffusely weak SKIN: No rashes. Assessment: Chest pain status post cardiac catheterization found to have severe triple- vessel disease status post three-vessel CABG with complex mitral valve repair Status post permanent pacemaker placement on 08/03/2023 Acute hypoxic respiratory failure, present on admission, multifactorial, secondary to severe triple vessel disease as well as acute CHF exacerbation with preserved EF Acute blood loss anemia and thrombocytopenia expected post surgery, hemoglobin stable today NSTEMI, present on admission with elevated troponins Mild leukocytosis, possibly reactive, resolved COPD, not in exacerbation Coronary artery atherosclerosis noted on CTA 3.3 cm abdominal aortic aneurysm noted on CTA Aortic valve murmur consistent with aortic stenosis, moderate History of GERD Hyperlipidemia history Hypertension history Continued ongoing nicotine dependence, smokes about 2 packs per day Excessive caffeine intake daily GI prophylaxis DVT prophylaxis Full code Plan: Patient is continued in the ICU with multiple medical consultations following as patient is status post three-vessel CABG with complex mitral valve repair . Patient had a pacemaker placed yesterday with cardiology and is a downgrade from the ICU once bed on 3 S. becomes available Patient to resume oral anticoagulant tomorrow and will follow-up on repeat labs. Hemoglobin is 8 today. Continue on supplemental oxygen and wean as tolerated. Encourage incentive spirometer use at least 10 times every hour while awake Continue GI and DVT prophylaxis . Patient to continue with sliding scale with Accu-Cheks before meals and at bedtime and will add long-acting as needed if blood sugars start to elevate. Blood sugars have been well controlled on just sliding scale. Encouraged increased activity as tolerated with cardiac rehab following Continue telemetry monitoring Patient has Xanax as needed and when necessary melatonin at sleep and discuss with patient and family about staying awake and sitting up out of the bed mostly during the day with windows and shades open patient states better at night Overall prognosis is guarded at this time. We will continue to follow during hospitalization. The impression and plan of care has been dictated by Delia Oakes, nurse practitioner as directed. MD Alyse I have performed a history and examination and MDM of this patient, discussed the same with the dictator, and agree with the dictator's assessment and plan as written ,documented as a scribe. Based on total visit time, I have performed more than 50% of the visit. Any additional findings or plans will be noted. Objective - Vital Signs Vital signs: Vital Signs Temp 98.0 F 08/04/23 12:00 Pulse 60 08/04/23 16:16 Resp 16 08/04/23 16:16 BP 121/56 08/04/23 12:00 Pulse Ox 98 08/04/23 12:00 FiO2 50 07/27/23 22:02 Intake & Output 08/03/23 08/04/23 08/04/23 18:59 06:59 18:59 Intake Total 350 600 556 Output Total 0 500 350 Balance 350 100 206 Weight 75.7 kg Intake: IV 250 600 80 Invasive Line 10 20 Invasive Line 8 10 Sodium Chloride 0.9% 1, 550 50 000 ml @ 50 mls/hr IV . Q20H [facility] Rx#:[id number] ceFAZolin 2 gm In Sodium 50 Chloride 0.9% 50 ml @ 100 mls/hr IVPB ONCE ONE Rx# :[id number] Oral 100 476 Output: Urine 0 500 350 Stool 0 Other: Voiding Method Bedside Commode Bedside Commode Urinal Urinal Urinal # Voids 0 0 0 ABP, PAP, CO, CI - Last Documented Arterial Blood Pressure 103/56 Pulmonary Artery Pressure 52/14 Cardiac Output 4 Cardiac Index 2.2 - Labs CBC & Chem 7: 08/04/23 04:39 08/04/23 04:39 Labs: Abnormal Lab Results - Last 24 Hours (Table) 08/03/23 08/04/23 08/04/23 Range/Units 20:41 04:39 04:39 RBC 2.48 L (4.30-5.90) m/uL Hgb 8.0 L (13.0-17.5) gm/dL Hct 24.6 L (39.0-53.0) % RDW 20.6 H (11.5-15.5) % Sodium 133 L (137-145) mmol/L BUN 31 H (9-20) mg/dL POC Glucose (mg/dL) 112 H (70-110) mg/dL Calcium 7.9 L (8.4-10.2) mg/dL Magnesium 2.5 H (1.6-2.3) mg/dL AST 68 H (17-59) U/L ALT 117 H (4-49) U/L Total Protein 5.5 L (6.3-8.2) g/dL Albumin 2.6 L (3.5-5.0) g/dL 08/04/23 Range/Units 16:18 RBC (4.30-5.90) m/uL Hgb (13.0-17.5) gm/dL Hct (39.0-53.0) % RDW (11.5-15.5) % Sodium (137-145) mmol/L BUN (9-20) mg/dL POC Glucose (mg/dL) 134 H (70-110) mg/dL Calcium (8.4-10.2) mg/dL Magnesium (1.6-2.3) mg/dL AST (17-59) U/L ALT (4-49) U/L Total Protein (6.3-8.2) g/dL Albumin (3.5-5.0) g/dL
--- NOTE | 2023-08-04 17:18 | P.PN ---
Subjective Progress Note Date: 08/04/23 SUBJECTIVE Patient is recovering well from the permanent pacemaker procedure that he had yesterday. He is currently in ventricularly paced rhythm. He is hemodynamically stable. He appears mildly fluid overloaded. He received 20 of IV Lasix today with 200 cc of urine output. However recommend repeating one dose of IV Lasix again. PHYSICAL EXAMINATION Vital signs reviewed. CONSTITUTIONAL: No apparent distress. HEENT: Pupils are reactive to light. No pallor, no icterus. HEART EXAMINATION:Surgical incision is intact, regular rate and rhythm, normal S1 and S2 CHEST EXAMINATION: Clear to auscultate in bilateral lung renae VASCULAR and EXTREMITIES: 1+ swelling in b/l le ABDOMEN: Soft, nontender. Positive bowel sounds. NEUROLOGIC EXAMINATION: No focal neurological deficit. Detialed neuro exam was not performed. 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 Continue metoprolol 12.5 mg twice a day Repeat Lasix 20 mg IV in the evening. We will continue to monitor Objective - Vital Signs Vital signs: Vital Signs Temp 98.0 F 08/04/23 12:00 Pulse 61 08/04/23 17:00 Resp 24 08/04/23 17:00 BP 99/53 08/04/23 17:00 Pulse Ox 98 08/04/23 17:00 FiO2 50 07/27/23 22:02 Intake & Output 08/03/23 08/04/23 08/04/23 18:59 06:59 18:59 Intake Total 350 600 556 Output Total 0 500 350 Balance 350 100 206 Weight 75.7 kg Intake: IV 250 600 80 Invasive Line 10 20 Invasive Line 8 10 Sodium Chloride 0.9% 1, 550 50 000 ml @ 50 mls/hr IV . Q20H [facility] Rx#:[id number] ceFAZolin 2 gm In Sodium 50 Chloride 0.9% 50 ml @ 100 mls/hr IVPB ONCE ONE Rx# :[id number] Oral 100 476 Output: Urine 0 500 350 Stool 0 Other: Voiding Method Bedside Commode Bedside Commode Urinal Urinal Urinal # Voids 0 0 0 ABP, PAP, CO, CI - Last Documented Arterial Blood Pressure 103/56 Pulmonary Artery Pressure 52/14 Cardiac Output 4 Cardiac Index 2.2 - Labs CBC & Chem 7: 08/04/23 04:39 08/04/23 04:39 Labs: Abnormal Lab Results - Last 24 Hours (Table) 08/03/23 08/04/23 08/04/23 Range/Units 20:41 04:39 04:39 RBC 2.48 L (4.30-5.90) m/uL Hgb 8.0 L (13.0-17.5) gm/dL Hct 24.6 L (39.0-53.0) % RDW 20.6 H (11.5-15.5) % Sodium 133 L (137-145) mmol/L BUN 31 H (9-20) mg/dL POC Glucose (mg/dL) 112 H (70-110) mg/dL Calcium 7.9 L (8.4-10.2) mg/dL Magnesium 2.5 H (1.6-2.3) mg/dL AST 68 H (17-59) U/L ALT 117 H (4-49) U/L Total Protein 5.5 L (6.3-8.2) g/dL Albumin 2.6 L (3.5-5.0) g/dL 08/04/23 Range/Units 16:18 RBC (4.30-5.90) m/uL Hgb (13.0-17.5) gm/dL Hct (39.0-53.0) % RDW (11.5-15.5) % Sodium (137-145) mmol/L BUN (9-20) mg/dL POC Glucose (mg/dL) 134 H (70-110) mg/dL Calcium (8.4-10.2) mg/dL Magnesium (1.6-2.3) mg/dL AST (17-59) U/L ALT (4-49) U/L Total Protein (6.3-8.2) g/dL Albumin (3.5-5.0) g/dL
[2023-08-04] MEDS: BENZOCAINE/MENTHOL LOZENG 1 EACH LOZENGE MUCOUS MEM PRN (20:32)
[2023-08-04] MEDS: SENNOSIDES-DOCUSATE SODIUM 1 EACH TAB PO SCH (20:34)
[2023-08-04] MEDS: ATORVASTATIN 40 MG TAB PO SCH (20:35)
[2023-08-04 20:52] LABS: Glucose,Whole Blood 153 mg/dL (70-110)
[2023-08-04] MEDS: MELATONIN 3 MG TABLET PO PRN (23:46)
[2023-08-04] MEDS: ALPRAZolam 0.25 MG TAB PO PRN (23:46)
[2023-08-05 04:36] LABS: Anisocytosis Moderate; HGB 7.6 gm/dL (13.0-17.5); Hypochromasia Moderate; MCH 31.7 pg (25.0-35.0); MCHC 31.6 g/dL (31.0-37.0); MCV 100.1 fL (80.0-100.0); Macrocytosis Moderate; Mean Platelet Volume 8.7; Platelet Count 266 k/uL (150-450); Poikilocytosis Moderate; RDW 20.1 % (11.5-15.5); WBC 7.4 k/uL (3.8-10.6)
[2023-08-05 04:46] LABS: ALT 75 U/L (4-49); AST 46 U/L (17-59); African American GFR (CKD) 82 (>60 ml/min/1.73 sqM); Albumin 2.7 g/dL (3.5-5.0); Alkaline Phosphatase 78 U/L (38-126); Anion Gap 8 mmol/L; Blood Urea Nitrogen 34 mg/dL (9-20); Calcium 8.2 mg/dL (8.4-10.2); Carbon Dioxide 26 mmol/L (22-30); Chloride 101 mmol/L (98-107); Glucose 112 mg/dL (74-99); Non-African American GFR(CKD) 71 (>60 ml/min/1.73 sqM); Potassium 4.3 mmol/L (3.5-5.1); Sodium 135 mmol/L (137-145); Total Protein 5.6 g/dL (6.3-8.2)
--- NOTE | 2023-08-05 06:32 | XR ---
EXAMINATION TYPE: XR chest 2V DATE OF EXAM: 08/05/2023 6:15 AM CLINICAL INDICATION:Male, 73 years old with history of post cardiac surgery; [facility] COMPARISON: Chest radiographs from 08/04/2023. TECHNIQUE: XR chest 2V Frontal and lateral views of the chest. FINDINGS: Lungs/Pleura: No evidence of focal consolidation or pneumothorax. Blunting of the costophrenic angles is present. Pulmonary vascularity: Pulmonary vascular congestion. Heart/mediastinum: Cardiomediastinal silhouette is enlarged and stable. Atherosclerotic calcificatio ns are seen in the aorta. Two lead cardiac conduction device overlying the left hemithorax with lead tips projecting over the right ventricle and right atrium. Left atrial appendage occlusion device is present. Mitral valve repair changes. Musculoskeletal: No acute osseous pathology. Midline sternotomy wires are noted. IMPRESSION: Postsurgical changes with mild pulmonary edema with trace bilateral pleural effusions. No significant ly changed from prior.
[2023-08-05] MEDS: INSULIN ASPART (NovoLOG) 100 UNIT/ML VIAL SQ SCH ×4 (06:41→20:40)
[2023-08-05] MEDS: IPRATROPIUM-ALBUTEROL 3 ML NEB INHALATION SCH ×4 (07:52→20:06)
--- NOTE | 2023-08-05 07:55 | P.PN ---
Subjective Progress Note Date: 08/05/23 Principal diagnosis: Severe diffuse calcific triple-vessel coronary artery disease with chronically occluded RCA and first OM, unstable angina, severe mitral valve regurgitation wi th prolapse of P2 with ruptured chord, moderate tricuspid valve regurgitation with severe pulmonary hypertension. History of hypertension, hyperlipidemia, abdominal aortic aneurysm with calcification of the posterior aspect of the ascending aorta, chronic ongoing tobacco dependence, moderate restrictive lung disease, GERD, depression POD #9 triple-vessel coronary artery bypass grafting using the left internal mammary artery to the left anterior descending artery, reverse saphenous vein graft from the aorta to the first obtuse marginal artery, reverse saphenous vein graft from the aorta to the posterior descending artery, complex mitral valve repair with construction of two pairs of NeoChords to P2 and posterior ring annuloplasty using a 34 mm AnnuloFlex ring, tricuspid valve repair using a 28 mm MC3 ring, exclusion of the left atrial appendage using a 40 mm AtriClip, endoscopic harvesting of the left greater saphenous vein, intraoperative graft flow measurements using the WakeMate system, intraoperative transesophageal echocardiogram and epiaortic scanning Postoperative acute blood loss anemia and thrombocytopenia, expected given hemodilution and cardiopulmonary bypass pump Paroxysmal atrial fibrillation with symptomatic bradycardia/SSS even off beta yamile and amio, afib is common after open heart surgery and is somewhat expected, bradycardia/SSS w/o BB is unexpected, unknown cause, no clear reversible cause Elevated transaminases, likely medication induced POD #2 insertion dual chamber permanent pacemaker The patient was seen and examined this morning sitting up in a recliner in no acute distress eating breakfast. Currently V-paced at 60 BPM, occasionally HR h igher than 60, afib. Patient does complain of some post surgical pain, denies shortness of breath. Chest x-ray, labs reviewed. Currently on 2 L nasal cannula with oxygen saturation in the high 90s. Able to achieve 1000 mL on his incentive spirometry. Patient has ambulated in the hallway. Showered yesterday. Patient looks the best this morning out of any day so far. at the bedside, discussed discharge plan. Objective - Vital Signs Vital signs: Vital Signs Temp 98.0 F 08/05/23 04:00 Pulse 61 08/05/23 04:00 Resp 28 H 08/05/23 04:00 BP 113/59 08/05/23 04:00 Pulse Ox 96 08/05/23 04:00 FiO2 2 08/05/23 00:00 Intake & Output 08/04/23 08/05/23 08/05/23 18:59 06:59 18:59 Intake Total 792 260 Output Total 500 200 Balance 292 60 Weight 75.6 kg Intake: IV 80 20 Invasive Line 10 20 20 Invasive Line 8 10 Sodium Chloride 0.9% 1, 50 000 ml @ 50 mls/hr IV . Q20H [facility] Rx#:[id number] Oral 712 240 Output: Urine 500 200 Stool 0 Other: Voiding Method Urinal Urinal # Voids 1 1 # Bowel Movements 1 ABP, PAP, CO, CI - Last Documented Arterial Blood Pressure 103/56 Pulmonary Artery Pressure 52/14 Cardiac Output 4 Cardiac Index 2.2 - Exam CONSTITUTIONAL: Cooperative, no acute distress RESPIRATORY: Lungs sounds diminished bilaterally. Respirations even, nonlabored. Currently on 2 L nasal cannula with oxygen saturation 96%. Able to achieve 1000 mL on incentive spirometry. Strong loose cough. CARDIOVASCULAR: S1, S2 present. Irregular rate and rhythm, Vpaced at 60 BPM. Sternum stable. Palpable peripheral pulses bilaterally. No edema present. No calf pain or tenderness noted. Heart hugger in place with patient demonstrating appropriate use. Antiembolism stockings, SCDs present. GASTROINTESTINAL: Abdomen soft, nontender, nondistended. Active bowel sounds present 4 quadrants. Tolerating diet. Positive bowel movement 08/04/23 GENITOURINARY: Continues to void clear yellow urine, output 700 mL in the last 24 hours INTEGUMENTARY: Skin is warm and dry with evidence of good perfusion. Anterior chest incision well approximated. Left lower extremity EVH site well approximated. Left ant chest wall pacer site covered with dry intact dressing NEUROLOGIC: Cranial nerves II through XII intact MUSKULOSKELETAL: Able to move all extremities, strength equal bilaterally, gait normal PSYCHIATRIC: Alert and oriented to person place and time, intact judgment and insight - Allied health notes Allied health notes reviewed: nursing - Labs CBC & Chem 7: 08/05/23 04:12 08/05/23 04:12 Labs: Abnormal Lab Results - Last 24 Hours (Table) 08/04/23 08/04/23 08/05/23 Range/Units 16:18 20:50 04:12 RBC 2.40 L (4.30-5.90) m/uL Hgb 7.6 L (13.0-17.5) gm/dL Hct 24.0 L (39.0-53.0) % MCV 100.1 H (80.0-100.0) fL RDW 20.1 H (11.5-15.5) % Sodium (137-145) mmol/L BUN (9-20) mg/dL Glucose (74-99) mg/dL POC Glucose (mg/dL) 134 H 153 H (70-110) mg/dL Calcium (8.4-10.2) mg/dL ALT (4-49) U/L Total Protein (6.3-8.2) g/dL Albumin (3.5-5.0) g/dL 08/05/23 Range/Units 04:12 RBC (4.30-5.90) m/uL Hgb (13.0-17.5) gm/dL Hct (39.0-53.0) % MCV (80.0-100.0) fL RDW (11.5-15.5) % Sodium 135 L (137-145) mmol/L BUN 34 H (9-20) mg/dL Glucose 112 H (74-99) mg/dL POC Glucose (mg/dL) (70-110) mg/dL Calcium 8.2 L (8.4-10.2) mg/dL ALT 75 H (4-49) U/L Total Protein 5.6 L (6.3-8.2) g/dL Albumin 2.7 L (3.5-5.0) g/dL - Imaging and Cardiology Chest x-ray: report reviewed, image reviewed Assessment and Plan Assessment: Severe diffuse calcific triple-vessel coronary artery disease with chronically occluded RCA and first OM, unstable angina, status post 3V CABG Severe mitral valve regurgitation with prolapse of P2 with ruptured chord, status post complex mitral valve repair Moderate tricuspid valve regurgitation with severe pulmonary hypertension, status post tricuspid valve repair History of hypertension Hyperlipidemia, treated, cholesterol 121, LDL 60.5 Abdominal aortic aneurysm with calcification of the posterior aspect of the ascending aorta Chronic ongoing tobacco dependence Moderate restrictive lung disease, preoperative FEV1 54% of predicted GERD Depression Postoperative acute blood loss anemia and thrombocytopenia, expected Paroxysmal atrial fibrillation, bradycardia/SSS, S/P permanent pacemaker Elevated transaminases, resolving Plan: Continue to optimize medical management with low dose aspirin, statin, beta yamile. Continue low dose ARB for afterload reduction with hold parameters Continue Amiodarone, Eliquis to start today Wean oxygen as tolerated. Encourage incentive spirometry 10 x every hour while awake. Bronchodilators per pulmonology Increase activity as tolerated. PT/OT/cardiac rehab consulted Will monitor daily labs and CXR. Electrolyte replacement per protocol. HIT panel negative. Will give IV Lasix GI/DVT prophylaxis Pain control with current medication regimen Insulin management per internal medicine, patient is not diabetic with preoperative HgbA1c 5.8%, but needs tight blood sugar control to prevent infection Continue to record strict accurate I/Os Daily weights Smoking cessation counseling and education provided Transfer orders placed yesterday for 3 , march transfer when bed available Discharge planning in progress, anticipate discharge to home with home care this More recommendations to follow based on patient's progress
[2023-08-05] MEDS: ASPIRIN 81 MG PO SCH (08:46)
[2023-08-05] MEDS: NICOTINE 14MG/24HR PATCH TRANSDERM SCH (08:46)
[2023-08-05] MEDS: CHOLECALCIFEROL 25 MCG (1000 IU) TABLET PO SCH (08:46)
[2023-08-05] MEDS: AMIODARONE 200 MG TAB PO SCH ×2 (08:47→20:39)
[2023-08-05] MEDS: METOPROLOL TARTRATE 12.5 MG TAB PO SCH ×2 (08:47→20:39)
[2023-08-05] MEDS: CITALOPRAM HYDROBROMIDE 20 MG TAB PO SCH (08:47)
[2023-08-05] MEDS: PANTOPRAZOLE 40 MG/10 ML VIAL IVP SCH ×2 (08:47→20:40)
[2023-08-05] MEDS: APIXABAN 5 MG TAB PO SCH ×2 (08:47→20:40)
[2023-08-05] MEDS: ACETAMINOPHEN TAB 325 MG TAB PO PRN (08:47)
[2023-08-05] MEDS ORDERED: FUROSEMIDE 10 MG/ML 2 ML VIAL IV ONE (10:02)
[2023-08-05 11:37] LABS: Glucose,Whole Blood 176 mg/dL (70-110)
--- NOTE | 2023-08-05 12:13 | P.PN ---
Subjective Progress Note Date: 08/05/23 The patient is seen today 07/22/2023 in follow-up on the selective care unit. He is currently sitting up in bed. Awake and alert in no acute distress. He is maintaining O2 saturations in the 90s on 3 L/m per nasal cannula. He is pulling approximately 1200 ML's on his incentive spirometer. He continues to be worked up for possible bypass surgery along with mitral valve and tricuspid valve repairs. FEV1 value was 1.26 or 54% of predicted. NicoDerm patch remains in place. The patient is seen today 07/23/2023 in follow-up on the selective care unit. He is currently sitting up in a chair at the bedside. Awake and alert in no acute distress. Denies any worsening shortness of breath cough or congestion. Denies any chest pain. He is maintaining good O2 saturations up to 97% on room air. Afebrile. Sodium 135. Potassium 3.7. Bicarb 27. BUN 22. Creatinine 0.90. NicoDerm patch in place. The patient is seen today 07/24/2023 in follow-up on the selective care unit. Awake and alert in no acute distress. Sitting in bed. Denies any chest pain. No palpitations. No worsening shortness of breath or cough. He did have a nightmare and some confusion last evening. Oriented 3 today. Maintaining O2 saturations in the 90s on 2 L/m per nasal cannula. He is afebrile. Hemodynamically stable. NicoDerm patch in place. The patient is seen today 07/25/2023 in follow-up on the selective care unit. He is ambulating in his room. Awake and alert in no acute distress. Denies any chest pain. Denies any worsening shortness of breath, cough or congestion. He is maintaining good O2 saturations in the 90s on 2 L/m per nasal cannula. Afebrile. Hemodynamically stable. Sodium 134. Potassium 4.3. Bicarb 28. BUN 19. Creatinine 0.87. Glucose 113. NicoDerm patch remains in place. Progress note dated 07/26/2023. The patient is seen today in room 356. The patient is scheduled to have bypass grafting, on July 27. Currently he is on 2 L of oxygen. No IV fluids. He is sitting at the bedside. White count 5.4, hemoglobin 10.4, hematocrit 30.9, with a normal platelet count. Sodium 132, potassium 4.3, chlorides 98, CO2 29, BUN 21, creatinine 0.85. Chest x-ray shows changes of COPD, with mild interstitial pulmonary edema. Progress note dated 07/27/2023. The patient was seen this morning in room 356. The patient is scheduled to have open-heart surgery today, 07/27/2023. He is currently on 2 L of oxygen. Lab data today includes a glucose of 121. Lab data from July 26 have been reviewed. X-rays, medications, and other information has also been reviewed. Previous chest x-ray shows changes of COPD, with mild interstitial pulmonary edema. Progress note dated 07/28/2023. The patient is postop day #1, status post three-vessel bypass grafting, mitral valve repair, tricuspid valve repair, and exclusion of the left atrial appendage. The patient's currently been extubated to 4 L of oxygen. He was extubated on July 27, at nighttime. He is getting saline at 50 mL an hour, and an insulin drip at 2.5 units an hour. The patient is very anxious and received some benzodiazepine. White count 6.9, hemoglobin 7.2, hematocrit 20.9, and a platelet count of 50,000. Sodium 135, potassium 4.6, chlorides 105, CO2 26, BUN 23, and creatinine 0.94. Chest x-ray shows some mild pulmonary vascular congestion, and some basilar atelectasis. The endotracheal tube has been removed. Progress note dated 07/29/2023. This patient is seen today in room 266. He's postoperative day #2, status post three-vessel bypass grafting, mitral and tricuspid valve repair, and exclusion of the left atrial appendage. Patient is currently on 4 L of oxygen. He is g etting saline at 20 mL an hour. He will get 1 unit of packed red blood cells today. White count is 9, 11 6.9, hematocrit 20.4, and platelet count 82,000. Sodium 132, potassium 4.3, chlorides 104, CO2 25, BUN 23, and creatinine 0.82. Albumin is 2.7. Chest x-ray shows some airspace opacities at the right lung base. There is also some infiltrate or atelectasis at the left lung base. Progress note dated 07/30/2023. The patient is again seen today in room 266. He's postoperative day #3, status post three-vessel bypass grafting, mitral and tricuspid valve repair, and exclusion of left atrial appendage. Currently, the patient's sitting upright in the chair. He is on 2 L of oxygen. He continues on amiodarone at 0.5 mg/m. He is also getting saline at 20 mL an hour. According to the nurse, he had a pretty stable and uneventful night. White count 8.1, he will been 7.7, hematocrit 22.1, and platelet count 92,000. Sodium 130, potassium 4.5, chlorides 102, CO2 26, BUN 24, and creatinine 0.74. AST is 248. ALT is 79. Chest x-ray in my opinion show some cardiomegaly, and mild increased vascular congestion. Progress note dated 07/31/2023. 73-year-old male, seen in room 266. He has postoperative day #4, status post three-vessel bypass grafting, mitral repair, tricuspid valve repair, and exclusion of left atrial appendage. The patient is currently on 2 L of oxygen. He is getting saline at 20 mL an hour. He sitting in a chair next to his bed. He is getting about 750 mL on his incentive spirometer. White count of 6.3, hemoglobin 7.2, hematocrit 21.4, with platelet count of 120,000. Sodium 128, potassium 4, chloride 98, CO2 24, BUN 29, and creatinine 0.81. AST is 240, with an ALT of 127. Chest x-ray show some bibasilar atelectasis, tiny effusions, some postoperative changes. On today's evaluation of 08/01/2023, the patient is doing well on 2 L of oxygen by nasal cannula. His postoperative day #4. Hemodynamically stable. Cardiac rhythm is paced with an underlying junctional rhythm.. Using incentive spirometer. The patient had a follow-up chest x-ray today that shows cardiomegaly. There is some pulmonary vascular congestion and he was given 20 mg of IV Lasix today. He still has some patchy bilateral pulmonary infiltrates more so in the right upper lobe. His white cell count is at 9.7, hemoglobin is at 8.4, and sodium is at 129, potassium is at 4, BUN is at 28 with a creatinine of 0.8. LFTs are slightly abnormal with an AST of 431 and ALT of 231. Lipitor was accordingly placed on hold. He remains on aspirin. He remains on Plavix. He remains off metoprolol because of his underlying junctional cardiac rhythm. Anticoagulations with Arixtra 2.5 mg subcu once a day. No other significant events overnight. Neurologically intact. Communicating. Tolerating his diet. He had adequate bowel movements. Noted the patient had severe diffuse calcified triple-vessel coronary artery disease with severe mitral regurgitation and prolapse of P2 with a ruptured cord and tricuspid regurgitation with severe pulmonary hypertension. He underwent three-vessel bypass surgery and mitral valve repair and tricuspid valve repair. On today's evaluation of 08/02/2023, the patient is postop day #5. His recovering from his cardiac surgery. His underlying cardiac rhythm is A. fib with bradycardia and occasional junctional rhythm. He has a pacemaker as a backup at the rate of 50. He is not taking any beta blockers at this point in time. His being contemplated for a pacemaker insertion. Meanwhile, the patient is currently on 2 L of oxygen by nasal cannula. Is oxygen saturations 95%. Hemodynamically stable. Hemoglobin is at 7.8 slightly lower compared to yesterday. Sodium is at 130, BUN is at 30 with a creatinine of 1.09. Chest x-ray is essentially unchanged. On today's evaluation of 08/03/2023, the patient is currently postop day #6, the patient remains on 2 L of oxygen by nasal cannula. He has a backup pacing at the rate of 50 and the patient has going to undergo a pacemaker insertion today. With activity, his cardiac rhythm is in nature fibrillation and sometimes goes up in the mid 70s. While at rest, he seems to be more so bradycardic in place. He is still using the incentive spirometer. Is falling approximately 1000. Chest x-ray shows small bilateral pleural effusions. No evidence of any pneumothorax and there is postthoracotomy changes. He remains on 2 L. He is ambulating. He is a bit nervous and anxious. His surgical 1 site is dry clean and intact. He has a hemoglobin of 7.3, white cell count of 6.8, B is a 37 with a creatinine of 1.1. LFTs are improving. Sodium levels of 131. Not receiving any beta blockers. He is on aspirin and Plavix. He is also on Cozaar for blood pressure control. Blood pressures under adequate control for now. No significant hypertension or hypotension. No nausea. No emesis. No other significant events overnight. Neurologically intact and moving all 4 extr emities without any limitation. On 08/04/2023, the patient is postop day #7. The patient underwent a dual- chamber pacemaker insertion yesterday as the patient was having sick sinus syndrome with atrial fibrillation and heart rate that were quite low and occasional junctional beats. Based on that, a dual-chamber pacemaker was inserted without any complications. The patient's current cardiac rhythm. Beta blockers were started on him and currently is on metoprolol 12.5 mg by mouth twice a day. He remains on amiodarone 200 mg by mouth twice a day. Anticoagulation is also to be started today. No other complaints otherwise for now. He is on oxygen at 2 L with a pulse ox of 97%. His blood work shows a WBC count of 7.3, hemoglobin of 8 and a platelet count of 225. BUN is at 31 with a creatinine of 0.8. Sodium level is at 133. He is afebrile. He is using the incentive spirometer. He is ambulating. He is tolerating his diet. No issues with pain. Using the incentive spirometer and reaching 1000. On 08/05/2023, patient is postop day #8. The patient is currently on room air oxygen. Pacemaker was inserted successfully. Chest x-ray from today shows mild pulmonary vascular congestion. Otherwise no other topical to the pacemaker insertion and the patient has ventricular pacing at rate of 60 and occasionally his heart rate is above 60 with atrial fibrillation. He remains on beta blockers. He remains on anticoagulation with Eliquis and this was started. He is using the incentive spirometer. He is ambulating. His sternal wound is dry and clean. No syncope. No focal neurological deficits. He has produced adequate amount of urine output. He is using the incentive spirometer. No other significant events over the past 24 hours. Objective - Vital Signs Vital signs: Vital Signs Temp 98.2 F 08/05/23 08:00 Pulse 63 08/05/23 08:01 Resp 24 08/05/23 08:00 BP 125/63 08/05/23 08:00 Pulse Ox 95 08/05/23 08:00 FiO2 2 08/05/23 00:00 Intake & Output 08/04/23 08/05/23 08/05/23 18:59 06:59 18:59 Intake Total 792 260 128 Output Total 500 200 Balance 292 60 128 Weight 75.6 kg Intake: IV 80 20 10 Invasive Line 10 20 20 10 Invasive Line 8 10 Sodium Chloride 0.9% 1, 50 000 ml @ 50 mls/hr IV . Q[facility]H [facility] Rx#:[id number] Oral 712 240 118 Output: Urine 500 200 Stool 0 Other: Voiding Method Urinal Urinal # Voids 1 1 # Bowel Movements 1 ABP, PAP, CO, CI - Last Documented Arterial Blood Pressure 103/56 Pulmonary Artery Pressure 52/14 Cardiac Output 4 Cardiac Index 2.2 - Exam CONSTITUTIONAL: Cooperative, no acute distress, currently on 2 L of oxygen by nasal cannula. Head exam was generally normal. There was no scleral icterus or corneal arcus. Mucous membranes were moist. Neck was supple and without jugular venous distension, thyromegaly, or carotid bruits. Carotids were easily palpable bilaterally. There was no adenopathy. RESPIRATORY: Lungs sounds diminished bilaterally. Respirations even, nonlabored. Currently on 2 L nasal cannula with oxygen saturation 98%. Able to achieve 750-1000 mL on incentive spirometry. Strong loose cough. CARDIOVASCULAR: S1, S2 present. The patient has a paced rhythm, and the patient has a pacemaker pocket over the left anterior chest area. Surgical site is dry clean and intact.. Sternum stable. Palpable peripheral pulses bilaterally. No edema present. No calf pain or tenderness noted. Heart hugger in place with patient demonstrating appropriate use. Antiembolism stockings, SCDs present. GASTROINTESTINAL: Abdomen soft, nontender, nondistended. Active bowel sounds present 4 quadrants. GENITOURINARY: Continues to void clear yellow urine INTEGUMENTARY: Skin is warm and dry with evidence of good perfusion. Anterior chest incision well approximated and covered with dry intact dressing. Left lower extremity EVH site well approximated NEUROLOGIC: Cranial nerves II through XII intact MUSKULOSKELETAL: Able to move all extremities, strength equal bilaterally, gait normal PSYCHIATRIC: Alert and oriented to person place and time, intact judgment and insight, delirious at times - Labs CBC & Chem 7: 08/05/23 04:12 08/05/23 04:12 Labs: Abnormal Lab Results - Last 24 Hours (Table) 08/04/23 08/04/23 08/05/23 Range/Units 16:18 20:50 04:12 RBC 2.40 L (4.30-5.90) m/uL Hgb 7.6 L (13.0-17.5) gm/dL Hct 24.0 L (39.0-53.0) % MCV 100.1 H (80.0-100.0) fL RDW 20.1 H (11.5-15.5) % Sodium (137-145) mmol/L BUN (9-20) mg/dL Glucose (74-99) mg/dL POC Glucose (mg/dL) 134 H 153 H (70-110) mg/dL Calcium (8.4-10.2) mg/dL ALT (4-49) U/L Total Protein (6.3-8.2) g/dL Albumin (3.5-5.0) g/dL 08/05/23 Range/Units 04:12 RBC (4.30-5.90) m/uL Hgb (13.0-17.5) gm/dL Hct (39.0-53.0) % MCV (80.0-100.0) fL RDW (11.5-15.5) % Sodium 135 L (137-145) mmol/L BUN 34 H (9-20) mg/dL Glucose 112 H (74-99) mg/dL POC Glucose (mg/dL) (70-110) mg/dL Calcium 8.2 L (8.4-10.2) mg/dL ALT 75 H (4-49) U/L Total Protein 5.6 L (6.3-8.2) g/dL Albumin 2.7 L (3.5-5.0) g/dL Assessment and Plan Plan: Postop day # 8, status post three-vessel bypass grafting, mitral valve repair, tricuspid valve repair, and exclusion of the left atrial appendage. Patient also status post mitral valve and tricuspid valve repair. Routine postoperative ventilator management, with extubation, on July 27. The patient is currently on oxygen at 2 L/m nasal cannula. All of the chest tubes are removed. Multi-vessel coronary artery disease and severe mitral regurgitation, being considered for open heart surgery with surgical revascularization and mitral valve replacement, however, the patient does want to proceed with this option. Sick sinus syndrome along with atrial fibrillation/Junctional cardiac rhythm and patient is post pacemaker insertion the patient has a dual-chamber pacemaker in place. The patient has ventricular pacing at the rate of 60 with occasional A. fib rhythm. Benign essential hypertension. Hyperlipidemia. Abdominal aortic aneurysm, measuring 3.3 cm incidentally found on chest CTA. GERD. Chronic and ongoing nicotine dependence. Acute Anemia, hemoglobin of 7. 6, expected outcome of surgery Plan: Dual-chamber pacemaker inserted and the patient is currently ventricular paced at the rate of 60 Continue metoprolol 12.5 mg twice a day Continue anticoagulation with Eliquis Continue aspirin Epicardial pacer wires were removed Lasix 20 mg 1 Continue using the spirometer Increase mobility Chest x-ray was noted We'll continue to follow
[2023-08-05] MEDS: ASCORBIC ACID 500 MG TAB PO SCH (13:17)
[2023-08-05] MEDS: FERROUS SULFATE 325 MG TAB PO SCH (13:17)
[2023-08-05] MEDS: LOSARTAN 25 MG TAB PO SCH (13:17)
[2023-08-05 17:08] LABS: Glucose,Whole Blood 123 mg/dL (70-110)
--- NOTE | 2023-08-05 17:54 | P.PN ---
Subjective Progress Note Date: 08/05/23 SUBJECTIVE Patient is doing well from cardiac vessel standpoint blood pressure 110/56, heart rate at 60 beats a minute. Patient is in 100% paced rhythm with underlying atrial fibrillation. On patient's creatinine is 1.03 today. Yesterday creatinine was 0.86. I would recommend to stop his Lasix and allow natural dialysis. His hemoglobin is 7.6. Repeat hemoglobin tomorrow if still low, we will check for iron and supplement if needed. PHYSICAL EXAMINATION Vital signs reviewed. CONSTITUTIONAL: No apparent distress. HEENT: Pupils are reactive to light. No pallor, no icterus. HEART EXAMINATION:Surgical incision is intact, regular rate and rhythm, normal S1 and S2 CHEST EXAMINATION: Clear to auscultate in bilateral lung renae VASCULAR and EXTREMITIES: 1+ swelling in b/l le ABDOMEN: Soft, nontender. Positive bowel sounds. NEUROLOGIC EXAMINATION: No focal neurological deficit. Detialed neuro exam was not performed. 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 Continue metoprolol 12.5 mg twice a day. Continue statin Continue amiodarone 200 mg twice a day as per cardiac thoracic surgery team's recommendation Continue Eliquis for atrial fibrillation Stop Lasix Repeat renal function tomorrow Check for iron studies, if ferritin is less than 100, replace with IV iron. Objective - Vital Signs Vital signs: Vital Signs Temp 97.9 F 08/05/23 16:00 Pulse 60 08/05/23 16:00 Resp 22 08/05/23 16:00 BP 85/50 08/05/23 16:00 Pulse Ox 97 08/05/23 16:00 FiO2 2 08/05/23 00:00 Intake & Output 08/04/23 08/05/23 08/05/23 18:59 06:59 18:59 Intake Total 792 260 398 Output Total 500 200 150 Balance 292 60 248 Weight 75.6 kg Intake: IV 80 20 20 Invasive Line 10 20 20 20 Invasive Line 8 10 Sodium Chloride 0.9% 1, 50 000 ml @ 50 mls/hr IV . Q20H [facility] Rx#:[id number] Oral 712 240 378 Output: Urine 500 200 150 Stool 0 Other: Voiding Method Urinal Urinal Urinal # Voids 1 1 # Bowel Movements 1 1 ABP, PAP, CO, CI - Last Documented Arterial Blood Pressure 103/56 Pulmonary Artery Pressure 52/14 Cardiac Output 4 Cardiac Index 2.2 - Labs CBC & Chem 7: 08/05/23 04:12 08/05/23 04:12 Labs: Abnormal Lab Results - Last 24 Hours (Table) 08/04/23 08/05/23 08/05/23 Range/Units 20:50 04:12 04:12 RBC 2.40 L (4.30-5.90) m/uL Hgb 7.6 L (13.0-17.5) gm/dL Hct 24.0 L (39.0-53.0) % MCV 100.1 H (80.0-100.0) fL RDW 20.1 H (11.5-15.5) % Sodium 135 L (137-145) mmol/L BUN 34 H (9-20) mg/dL Glucose 112 H (74-99) mg/dL POC Glucose (mg/dL) 153 H (70-110) mg/dL Calcium 8.2 L (8.4-10.2) mg/dL ALT 75 H (4-49) U/L Total Protein 5.6 L (6.3-8.2) g/dL Albumin 2.7 L (3.5-5.0) g/dL 08/05/23 08/05/23 Range/Units 11:35 17:06 RBC (4.30-5.90) m/uL Hgb (13.0-17.5) gm/dL Hct (39.0-53.0) % MCV (80.0-100.0) fL RDW (11.5-15.5) % Sodium (137-145) mmol/L BUN (9-20) mg/dL Glucose (74-99) mg/dL POC Glucose (mg/dL) 176 H 123 H (70-110) mg/dL Calcium (8.4-10.2) mg/dL ALT (4-49) U/L Total Protein (6.3-8.2) g/dL Albumin (3.5-5.0) g/dL
[2023-08-05 20:33] LABS: Glucose,Whole Blood 161 mg/dL (70-110)
[2023-08-05] MEDS: ATORVASTATIN 40 MG TAB PO SCH (20:39)
[2023-08-05] MEDS: SENNOSIDES-DOCUSATE SODIUM 1 EACH TAB PO SCH (20:39)
[2023-08-05] MEDS: ALPRAZolam 0.25 MG TAB PO PRN (22:24)
[2023-08-06 02:36] LABS: Glucose,Whole Blood 108 mg/dL (70-110)
--- NOTE | 2023-08-06 06:09 | P.PN ---
Subjective Progress Note Date: 08/05/23 This is a 73-year-old male who presented to the emergency department with feeling of chest pain or shortness of breath. Patient reported some pressure and squeezing sensation along with a minimal cough and bloating. Patient reports he follows with Dr. Holloway in the outpatient setting with a past medical history of GERD, hyperlipidemia, hypertension, continues to smoke about 1 pack per day, has an occasional drink although not very often and denies any other illicit drug use. Chest x-ray in the ER shows interstitial infiltrates noted with mid and lower lung zones bilaterally that could reflect edema versus interstitial pneumonia. Patient underwent CTA of the chest showing no diagnostic evidence of PE, COPD with pulmonary fibrosis correlate for mild CHF with a dense coronary artery atherosclerosis noted along with incidental note of abdominal aortic aneurysm partially included measuring approximately 3.3 cm with nonspecific mediastinal and hilar lymphadenopathy. There is a prominent pulm onary artery that can be associated with pulmonary artery hypertension. 2-D echo was ordered and pending and was patient was admitted for chest pain for cardiology evaluation. Patient started on heparin as troponins was 0.031 and trending up at 0.043. Virology testing including influenza, RSV, and CoVid were all negative. WBC revealed a 10.8, hemoglobin 15.8, platelets 298, INR 1.0, sodium was 139 with a potassium of 3.9, BUN was 14 with creatinine of 0.86, total bili is 0.6, LFTs within normal limits, BNP was 546. Patient is currently maintained on 2 L of oxygen via nasal cannula for shortness of breath and oxygen saturations are 95-98% and patient reports he does not wear oxygen outpatient. Patient has been counseled extensively on complete tobacco cessation. 07/21/2023 Patient is seen and evaluated in follow-up with cardiology following along with CT surgery which has been consulted. Patient underwent cardiac catheterization showing triple-vessel heart disease and cardiothoracic has been consulted to discuss possible surgical intervention. Initiation of preoperative clearance has been ongoing and patient was scheduled to undergo NICOLAS today. Patient continues on 2 L via nasal cannula and reports his shortness of breath is improved and keeps asking if he could go home. Awaiting further evaluation from CT surgery and will discuss further with them about this. Family at the bedside with multiple questions and concerns were answered to the best of our ability. Patient's at bedside reports he smokes at least 2 packs a day of cigarettes and he mentioned only 1 pack per day and also drinks coffee from the time he wakes up until the time he goes to bed all day. Patient is afebrile denies chest pain or palpitations. No worsening shortness of breath noted. Patient was nothing by mouth for NICOLAS and diet resumed after procedure and tolerating with no reports of nausea or vomiting. Pro-calcitonin was normal and will discontinue empiric antibiotics. 07/22/2023 Patient is seen in follow-up today undergoing continued surgical work up for severe triple vessel disease. Patient continues to report he feels well and would like to go home prior to surgery. Patient is still requiring 2 liters via NC of . Multiple medical consultations following. Tentative surgery on Tuesday. Per cardiology, no plans for discharge prior to surgery at this time. Smoking cessation reinforced and patient remains on nicotine patch. Patient is afebrile and denies any chest pain or shortness of breath. Tolerating diet with no reported nausea or vomiting. 07/23/2023 Patient is currently lying in bed. Awake alert and oriented x3. Able to ambulate in the room. No complaints of chest pain or shortness of breath. No nausea vomiting abdominal pain or diarrhea. Saturating at 97% on room air. Patient has been afebrile. No cough or sputum production. Laboratory data showed sodium 135 potassium 3.7 chloride 100 bicarb is 27 BUN 2020 creatinine 0.9 and blood sugars 150. Patient is being continued on aspirin and statin, metoprolol and Aldactone. Cardiology and CT surgery is on board. Patient is scheduled for coronary artery bypass graft on 07/27/2023. 07/24/2023 Patient is currently in the telemetry unit. No complaints of chest pain or shortness of breath. No nausea vomiting abdominal pain or diarrhea. Able to ambulate in the room. Currently on oxygen at 2 L via nasal cannula and saturating at 100%. Patient has been afebrile. No acute overnight issues. P atient is using incentive spirometry. Scheduled for coronary revascularization surgery on 07/27/2023. Cardiology, pulmonary and CT surgery is on board. 07/25/2023 Patient is seen in follow-up this morning continued on 2 L via nasal cannula with good oxygen saturations and takes off frequently. Patient has been up walking around and labs within normal limits. Patient is using incentive spirometer as instructed and following heart healthy diet. Planning on CABG with valve repair or replacement on Tuesday with cardiothoracic surgery. Patient is currently afebrile with no reports of chest pain or worsening shortness of breath. Patient is tolerating diet and denies nausea or vomiting. 07/26/2023 Patient seen and evaluated in follow-up today and was told by pet care worker that patient was sleeping sitting at the side of the bed and fell forward striking his nasal bone and head on the table. Maxillofacial CT was done showing concern for minimal nasal bone fracture. CT brain ordered without contrast as patient will be undergoing extensive CABG surgery in the a.m. and maintained on high intensity heparin throughout. This was discussed and relayed to cardiothoracic surgery and following protocol. Patient continues to require 2-3 L via nasal cannula otherwise denies worsening shortness of breath or chest pain. Patient denies having dizziness or lightheadedness or passing out at the time of this fall. No reports of nausea or vomiting noted and patient will be nothing by mouth at midnight. 07/28/2023 Patient is seen and evaluated in follow-up today currently in the ICU with multiple medical consultations following. Patient is status post triple-vessel coronary artery bypass grafting with complex mitral valve repair. Patient continues with multiple chest tubes and [place] catheter indwelling [place] catheter. Patient not requiring pressor support at this time is currently sitting up in the chair. Patient does have heart hugger noted. Patient also continues with insulin drip with blood sugars well controlled and we'll transition to sliding scale and long-acting as needed possibly in 24 hours. Patient is afebrile reports some chest wall discomfort although reports to feeling well. Chest x- ray today shows residual mild pulmonary vascular congestion with some i mprovement on the right. Hemoglobin 7.2 and has received 2 units of PRBCs yesterday. Will follow-up with repeat chest x-ray and labs in the a.m. 07/29/2023 Patient is seen in follow-up today continues to be in the ICU currently sitting up in the chair. Patient reports feeling fatigued today and not getting much sleep. Hemoglobin was found to be 6.9 and awaiting receive a unit of PRBC. Patient to be transitioned off insulin drip and will start with sliding scale with Accu-Cheks before meals and at bedtime and add long-acting if needed for tight glycemic control. Patient is afebrile with no increasing shortness of breath noted. Patient is maintained on 3 L via nasal cannula maintaining oxygen saturations above 90%. Chest x-ray today shows right lung airspace opacification is concerning for developing pneumonia with stable left lower lung airspace opacification. Patient to continue with incentive spirometer at least 10 times every hour while awake. Patient is tolerating diet although not much of an appetite right now and reports to being fatigued. Will continue heart healthy diabetic diet. 08/01/2023 Patient seen and evaluated in follow-up today continues to be in the ICU with multiple medical consultations following. Patient is continued on 2 L via nasal cannula with good oxygen saturations above 95%. Patient continues to be restless and almost no sleep and has been receiving as needed Xanax with melatonin. Patient with some pulmonary congestion did receive a dose of Lasix today. Hemoglobin is stable at 8.1. Sodium slightly low at 129 with a potassium of 4.0 and creatinine is 0.80. Liver functions are elevated with an AST of 431 and ALT is 213 and statin has been discontinued for now. Recommend follow-up labs in the a.m. Blood sugars well controlled on current regimen and will continue with Accu-Cheks before meals and at bedtime and sliding scale. Encouraged oral intake and increased activity as tolerated. 08/02/2023 Patient is seen today currently sitting up in the chair with at the bedside. Patient continues to appear exhausted. Sleep cycles are often patient is sleeping mostly during the day and has been up all night. Patient does have melatonin on although not helping and as needed Xanax. Multiple medical consultations following including cardiology and patient has had continued pacer wires and remains in junctional rhythm and cardiology recommending permanent pacemaker. Plan for pacemaker on 08/03/2023. Patient was given a dose of Lasix today. Hemoglobin stable. Patient continues to have cough that sounds conges ian needs encouragement on using heart hugger. at the bedside reports she has been helping him with this 48 doesn't remember to grab the handles when coughing. Encouraged incentive spirometer use and continued increased activity as tolerated. 08/03/2023 Patient is seen and evaluated in follow-up currently undergoing permanent pacemaker placement with Dr. Rosario today. Multiple medical consultations following the patient is continued on 2 L via nasal cannula. Chest x-ray today shows resolving volume overloadsome residual remaining. Patient is maintained on breathing inhalational treatments and will continue. Blood sugars well controlled and will continue with Accu-Cheks before meals and at bedtime and sliding scale as needed. Labs reviewed today showing a slightly low potassium of 3.8 and was given potassium supplementation. Sodium 131 which is improved and liver functions improving as AST is 117 and ALT is 167. Hemoglobin is stable at 7.3 today and recommended transfuses 7 or less. 08/04/2023 Patient is seen in follow-up today status post pacemaker placement continues in the ICU with multiple medical consultations following. Patient continues on 2 L via nasal cannula maintaining oxygen saturations above 95%. Chest x-ray today shows some interval improvement with residual patchy pulmonary edema remains with a trace a left pleural effusion. Patient continues to report a cough with congestion as well as periods of feeling like he is unable to catch his breath. Patient has been up and working with physical therapy and reports to feeling exhausted. Patient continues to have issues with no sleep at night and nursing staff has been working with the patient extensively on staying awake during the day for proper sleep at night. Patient is afebrile with no reports of worsening shortness of breath or chest pains. Patient has chest wall pain and is extr gene sensitive at the pacemaker site. Hemoglobin is stable at 8 today and other labs reviewed and within normal limits. Liver functions are trending down and AST is now 68 with an ALT of 117. Follow-up chest x-ray and labs are ordered. 08/05/2023 Patient is seen in follow-up today working on being transitioned out of the ICU to 3 S. Patient reports he receives some rest last night and feels much improved. Patient is being considered for discharge possibly this weekend. Patient is afebrile with no reports of chest pains or worsening shortness of breath. Patient reports his breathing is slightly improved today and has been weaning FiO2 as tolerated. Patient tolerating diet with no reports of nausea or vomiting. Blood sugars well controlled on current regimen. Review of systems: Constitutional: No reports of fatigue, no fever, or chills, reports he got some sleep last night Cardiovascular: No reports of chest pain or palpitations, reports chest wall discomfort when coughing Respiratory: No reports of worsening shortness of breath , reports occasional cough GI: No reports of nausea, vomiting, or diarrhea : No reports of dysuria or retention Neurovascular: reports of generalized weakness All medications have been reviewed PHYSICAL EXAMINATION: GENERAL: The patient is alert and oriented x3, Well developed, well nourished. HEENT: Pupils are round and equally reacting to light. EOMI. no scleral icterus. No conjunctival pallor. Normocephalic, atraumatic. No pharyngeal erythema. No thyromegaly. No facial deformity noted on exam CARDIOVASCULAR: S1 and S2 muffled PULMONARY: diminished breath sounds bilaterally with no wheezing or rhonchi noted. ABDOMEN: soft. Nontender on exam. obese. non-distended, normoactive bowel sounds. No palpable organomegaly. MUSCULOSKELETAL: No joint swelling or deformity. EXTREMITIES: No cyanosis, clubbing, or pedal edema. NEUROLOGICAL: Gross neurological examination did not reveal any focal deficits. Diffusely weak SKIN: No rashes. Assessment: Chest pain status post cardiac catheterization found to have severe triple- vessel disease status post three-vessel CABG with complex mitral valve repair Status post permanent pacemaker placement on 08/03/2023 Acute hypoxic respiratory failure, present on admission, multifactorial, secondary to severe triple vessel disease as well as acute CHF exacerbation with preserved EF Acute blood loss anemia and thrombocytopenia expected post surgery, hemoglobin stable today at 7.3 NSTEMI, present on admission with elevated troponins COPD, not in exacerbation Coronary artery atherosclerosis noted on CTA 3.3 cm abdominal aortic aneurysm noted on CTA Aortic valve murmur consistent with aortic stenosis, moderate History of GERD Hyperlipidemia history Hypertension history Continued ongoing nicotine dependence, smokes about 2 packs per day Excessive caffeine intake daily GI prophylaxis DVT prophylaxis Full code Plan: Patient is continued in the ICU with multiple medical consultations following as patient is status post three-vessel CABG with complex mitral valve repair . Patient had a pacemaker placed yesterday with cardiology and is a downgrade from the ICU and has received bed on 3 S. Patient to resume oral anticoagulant tomorrow and will follow-up on repeat labs. Hemoglobin is 7.3 today. Continue on supplemental oxygen and wean as tolerated. Encourage incentive spirometer use at least 10 times every hour while awake Continue GI and DVT prophylaxis . Patient to continue with sliding scale with Accu-Cheks before meals and at bedtime and will add long-acting as needed if blood sugars start to elevate. Blood sugars have been well controlled on just sliding scale. Patient is not a diabetic. Encouraged increased activity as tolerated with cardiac rehab following Continue telemetry monitoring Admitting team discussing discharge this weekend. Patient is medically stable and we will continue to follow during hospitalization The impression and plan of care has been dictated by Delia Oakes, nurse practitioner as directed. MD Alyse I have performed a history and examination and MDM of this patient, discussed the same with the dictator, and agree with the dictator's assessment and plan as written ,documented as a scribe. Based on total visit time, I have performed more than 50% of the visit. Any additional findings or plans will be noted. Objective - Vital Signs Vital signs: Vital Signs Temp 98.2 F 08/05/23 08:00 Pulse 63 08/05/23 08:01 Resp 24 08/05/23 08:00 BP 125/63 08/05/23 08:00 Pulse Ox 95 08/05/23 08:00 FiO2 2 08/05/23 00:00 Intake & Output 08/04/23 08/05/23 08/05/23 18:59 06:59 18:59 Intake Total 792 260 128 Output Total 500 200 Balance 292 60 128 Weight 75.6 kg Intake: IV 80 20 10 Invasive Line 10 20 20 10 Invasive Line 8 10 Sodium Chloride 0.9% 1, 50 000 ml @ 50 mls/hr IV . Q20H [facility] Rx#:[id number] Oral 712 240 118 Output: Urine 500 200 Stool 0 Other: Voiding Method Urinal Urinal # Voids 1 1 # Bowel Movements 1 ABP, PAP, CO, CI - Last Documented Arterial Blood Pressure 103/56 Pulmonary Artery Pressure 52/14 Cardiac Output 4 Cardiac Index 2.2 - Labs CBC & Chem 7: 08/05/23 04:12 08/05/23 04:12 Labs: Abnormal Lab Results - Last 24 Hours (Table) 08/04/23 08/04/23 08/05/23 Range/Units 16:18 20:50 04:12 RBC 2.40 L (4.30-5.90) m/uL Hgb 7.6 L (13.0-17.5) gm/dL Hct 24.0 L (39.0-53.0) % MCV 100.1 H (80.0-100.0) fL RDW 20.1 H (11.5-15.5) % Sodium (137-145) mmol/L BUN (9-20) mg/dL Glucose (74-99) mg/dL POC Glucose (mg/dL) 134 H 153 H (70-110) mg/dL Calcium (8.4-10.2) mg/dL ALT (4-49) U/L Total Protein (6.3-8.2) g/dL Albumin (3.5-5.0) g/dL 08/05/23 Range/Units 04:12 RBC (4.30-5.90) m/uL Hgb (13.0-17.5) gm/dL Hct (39.0-53.0) % MCV (80.0-100.0) fL RDW (11.5-15.5) % Sodium 135 L (137-145) mmol/L BUN 34 H (9-20) mg/dL Glucose 112 H (74-99) mg/dL POC Glucose (mg/dL) (70-110) mg/dL Calcium 8.2 L (8.4-10.2) mg/dL ALT 75 H (4-49) U/L Total Protein 5.6 L (6.3-8.2) g/dL Albumin 2.7 L (3.5-5.0) g/dL
[2023-08-06 06:15] LABS: Glucose,Whole Blood 104 mg/dL (70-110)
[2023-08-06] MEDS: INSULIN ASPART (NovoLOG) 100 UNIT/ML VIAL SQ SCH ×4 (06:26→20:34)
[2023-08-06] MEDS: IPRATROPIUM-ALBUTEROL 3 ML NEB INHALATION SCH ×5 (08:09→21:58)
[2023-08-06 08:12] LABS: Anisocytosis Moderate; HCT 26.3 % (39.0-53.0); HGB 8.1 gm/dL (13.0-17.5); Hypochromasia Marked; MCH 31.5 pg (25.0-35.0); MCV 101.6 fL (80.0-100.0); Macrocytosis Moderate; Mean Platelet Volume 8.5; Platelet Count 345 k/uL (150-450); Poikilocytosis Moderate; RBC 2.59 m/uL (4.30-5.90); RDW 20.5 % (11.5-15.5); WBC 8.1 k/uL (3.8-10.6)
[2023-08-06 08:21] LABS: ALT 63 U/L (4-49); AST 46 U/L (17-59); African American GFR (CKD) 80 (>60 ml/min/1.73 sqM); Albumin 3.1 g/dL (3.5-5.0); Alkaline Phosphatase 81 U/L (38-126); Anion Gap 5 mmol/L; Blood Urea Nitrogen 35 mg/dL (9-20); Calcium 8.5 mg/dL (8.4-10.2); Carbon Dioxide 28 mmol/L (22-30); Chloride 103 mmol/L (98-107); Glucose 92 mg/dL (74-99); Non-African American GFR(CKD) 69 (>60 ml/min/1.73 sqM); Potassium 4.6 mmol/L (3.5-5.1); Sodium 136 mmol/L (137-145); Total Bilirubin 1.2 mg/dL (0.2-1.3); Total Protein 6.1 g/dL (6.3-8.2)
--- NOTE | 2023-08-06 08:23 | XR ---
EXAMINATION TYPE: XR chest 2V DATE OF EXAM: 08/06/2023 HISTORY: post cardiac surgery COMPARISON: 08/05/2023 TECHNIQUE: Single view of the chest is submitted. FINDINGS: Sternotomy wires mediastinal clips are in place. Left atrial clip is noted. Dual-lead pacer device is in place. There is pulmonary venous congestion with patchy perihilar infiltrates and small effusions with cardiomegaly. Hilar and mediastinal structures are within normal limits. Degenerative changes are seen of the dorsal spine. IMPRESSION: 1. Essentially stable chest
--- NOTE | 2023-08-06 08:41 | P.PN ---
Subjective Progress Note Date: 08/06/23 Principal diagnosis: Severe diffuse calcific triple-vessel coronary artery disease with chronically occluded RCA and first OM, unstable angina, severe mitral valve regurgitation wi th prolapse of P2 with ruptured chord, moderate tricuspid valve regurgitation with severe pulmonary hypertension. History of hypertension, hyperlipidemia, abdominal aortic aneurysm with calcification of the posterior aspect of the ascending aorta, chronic ongoing tobacco dependence, moderate restrictive lung disease, GERD, depression POD #10 triple-vessel coronary artery bypass grafting using the left internal mammary artery to the left anterior descending artery, reverse saphenous vein graft from the aorta to the first obtuse marginal artery, reverse saphenous vein graft from the aorta to the posterior descending artery, complex mitral valve repair with construction of two pairs of NeoChords to P2 and posterior ring annuloplasty using a 34 mm AnnuloFlex ring, tricuspid valve repair using a 28 mm MC3 ring, exclusion of the left atrial appendage using a 40 mm AtriClip, endoscopic harvesting of the left greater saphenous vein, intraoperative graft flow measurements using the Cert[employer] system, intraoperative transesophageal echocardiogram and epiaortic scanning Postoperative acute blood loss anemia and thrombocytopenia, expected given hemodilution and cardiopulmonary bypass pump Paroxysmal atrial fibrillation with symptomatic bradycardia/SSS even off beta yamile and amio, afib is common after open heart surgery and is somewhat expected, bradycardia/SSS w/o BB is unexpected, unknown cause, no clear reversible cause Elevated transaminases, likely medication induced POD #3 insertion dual chamber permanent pacemaker The patient was seen and examined this morning sitting up in a recliner on the cardiac stepdown unit in no acute distress eating breakfast. Currently V-paced at 60 BPM, occasionally HR higher than 60, afib. Patient does complain of some post surgical pain but controlled with current medication, denies shortness of breath. Chest x-ray, labs reviewed. Currently on room air with oxygen saturation in the 90s. Able to achieve 1000 mL on his incentive spirometry. Patient has ambulated in the hallway. Showered daily. Asking to go home. Objective - Vital Signs Vital signs: Vital Signs Temp 97.9 F 08/06/23 04:00 Pulse 64 08/06/23 08:18 Resp 19 08/06/23 04:00 BP 110/63 08/06/23 04:00 Pulse Ox 95 08/06/23 08:10 FiO2 2 08/05/23 00:00 Intake & Output 08/05/23 08/06/23 08/06/23 18:59 06:59 18:59 Intake Total 526 260 Output Total 150 550 Balance 376 -290 Weight 75.2 kg Intake: IV 30 20 Invasive Line 1 10 20 Invasive Line 10 20 Oral 496 240 Output: Urine 150 550 Other: Voiding Method Urinal Urinal # Bowel Movements 1 1 ABP, PAP, CO, CI - Last Documented Arterial Blood Pressure 103/56 Pulmonary Artery Pressure 52/14 Cardiac Output 4 Cardiac Index 2.2 - Exam CONSTITUTIONAL: Cooperative, no acute distress RESPIRATORY: Lungs sounds diminished bilaterally. Respirations even, nonlabored. Currently on room air with oxygen saturation 95%. Able to achieve 1000 mL on incentive spirometry. Strong loose cough. CARDIOVASCULAR: S1, S2 present. Irregular rate and rhythm, Vpaced at 60 BPM. Sternum stable. Palpable peripheral pulses bilaterally. No edema present. No calf pain or tenderness noted. Heart hugger, antiembolism stockings, SCDs present. GASTROINTESTINAL: Abdomen soft, nontender, nondistended. Active bowel sounds present 4 quadrants. Tolerating diet. Positive bowel movement 08/06/23 GENITOURINARY: Continues to void clear yellow urine, output 700 mL in the last 24 hours INTEGUMENTARY: Skin is warm and dry with evidence of good perfusion. Anterior chest incision well approximated. Left lower extremity EVH site well approximated. Left ant chest wall pacer site covered with dry intact dressing NEUROLOGIC: Cranial nerves II through XII intact MUSKULOSKELETAL: Able to move all extremities, strength equal bilaterally, gait normal PSYCHIATRIC: Alert and oriented to person place and time, intact judgment and insight - Allied health notes Allied health notes reviewed: nursing - Labs CBC & Chem 7: 08/06/23 07:06 08/06/23 07:06 Labs: Abnormal Lab Results - Last 24 Hours (Table) 08/05/23 08/05/23 08/05/23 Range/Units 11:35 17:06 20:32 RBC (4.30-5.90) m/uL Hgb (13.0-17.5) gm/dL Hct (39.0-53.0) % MCV (80.0-100.0) fL RDW (11.5-15.5) % Sodium (137-145) mmol/L BUN (9-20) mg/dL POC Glucose (mg/dL) 176 H 123 H 161 H (70-110) mg/dL ALT (4-49) U/L Total Protein (6.3-8.2) g/dL Albumin (3.5-5.0) g/dL 08/06/23 08/06/23 Range/Units 07:06 07:06 RBC 2.59 L (4.30-5.90) m/uL Hgb 8.1 L (13.0-17.5) gm/dL Hct 26.3 L (39.0-53.0) % MCV 101.6 H (80.0-100.0) fL RDW 20.5 H (11.5-15.5) % Sodium 136 L (137-145) mmol/L BUN 35 H (9-20) mg/dL POC Glucose (mg/dL) (70-110) mg/dL ALT 63 H (4-49) U/L Total Protein 6.1 L (6.3-8.2) g/dL Albumin 3.1 L (3.5-5.0) g/dL Microbiology - Last 24 Hours (Table) 07/28/23 10:55 Fungal Culture - Preliminary Pericardial Fluid - Imaging and Cardiology Chest x-ray: report reviewed, image reviewed Assessment and Plan Assessment: Severe diffuse calcific triple-vessel coronary artery disease with chronically occluded RCA and first OM, unstable angina, status post 3V CABG Severe mitral valve regurgitation with prolapse of P2 with ruptured chord, s tatus post complex mitral valve repair Moderate tricuspid valve regurgitation with severe pulmonary hypertension, status post tricuspid valve repair History of hypertension Hyperlipidemia, treated, cholesterol 121, LDL 60.5 Abdominal aortic aneurysm with calcification of the posterior aspect of the ascending aorta Chronic ongoing tobacco dependence Moderate restrictive lung disease, preoperative FEV1 54% of predicted GERD Depression Postoperative acute blood loss anemia and thrombocytopenia, expected Paroxysmal atrial fibrillation, bradycardia/SSS, S/P permanent pacemaker Elevated transaminases, resolving Plan: Continue to optimize medical management with low dose aspirin, statin, beta yamile. Continue low dose ARB for afterload reduction with hold parameters, increased to 25 mg today. Recommend increasing pacemaker rate to 70 BPM Continue Amiodarone, Eliquis Encourage incentive spirometry 10 x every hour while awake. Bronchodilators per pulmonology Increase activity as tolerated. PT/OT/cardiac rehab consulted Will monitor daily labs and CXR. Electrolyte replacement per protocol GI/DVT prophylaxis Pain control with current medication regimen Insulin management per internal medicine, patient is not diabetic with preoperative HgbA1c 5.8%, but needs tight blood sugar control to prevent infection Continue to record strict accurate I/Os Daily weights Smoking cessation counseling and education provided Discharge planning in progress, anticipate discharge to home with home care soon More recommendations to follow based on patient's progress
[2023-08-06] MEDS: NICOTINE 14MG/24HR PATCH TRANSDERM SCH (09:44)
[2023-08-06] MEDS: ALPRAZolam 0.25 MG TAB PO PRN ×2 (09:44→20:32)
[2023-08-06] MEDS: METOPROLOL TARTRATE 12.5 MG TAB PO SCH ×2 (09:44→20:29)
[2023-08-06] MEDS: APIXABAN 5 MG TAB PO SCH ×2 (09:44→20:29)
[2023-08-06] MEDS: PANTOPRAZOLE 40 MG/10 ML VIAL IVP SCH ×2 (09:44→20:29)
[2023-08-06] MEDS: CHOLECALCIFEROL 25 MCG (1000 IU) TABLET PO SCH (09:44)
[2023-08-06] MEDS: ASPIRIN 81 MG PO SCH (09:44)
[2023-08-06] MEDS: AMIODARONE 200 MG TAB PO SCH ×2 (09:45→20:29)
[2023-08-06] MEDS: CITALOPRAM HYDROBROMIDE 20 MG TAB PO SCH (09:45)
[2023-08-06] MEDS ORDERED: FUROSEMIDE 10 MG/ML 4 ML VIAL IV STA (11:39)
--- NOTE | 2023-08-06 12:31 | P.PN ---
Subjective Progress Note Date: 08/06/23 The patient is seen today 07/22/2023 in follow-up on the selective care unit. He is currently sitting up in bed. Awake and alert in no acute distress. He is maintaining O2 saturations in the 90s on 3 L/m per nasal cannula. He is pulling approximately 1200 ML's on his incentive spirometer. He continues to be worked up for possible bypass surgery along with mitral valve and tricuspid valve repairs. FEV1 value was 1.26 or 54% of predicted. NicoDerm patch remains in place. The patient is seen today 07/23/2023 in follow-up on the selective care unit. He is currently sitting up in a chair at the bedside. Awake and alert in no acute distress. Denies any worsening shortness of breath cough or congestion. Denies any chest pain. He is maintaining good O2 saturations up to 97% on room air. Afebrile. Sodium 135. Potassium 3.7. Bicarb 27. BUN 22. Creatinine 0.90. NicoDerm patch in place. The patient is seen today 07/24/2023 in follow-up on the selective care unit. Awake and alert in no acute distress. Sitting in bed. Denies any chest pain. No palpitations. No worsening shortness of breath or cough. He did have a nightmare and some confusion last evening. Oriented 3 today. Maintaining O2 saturations in the 90s on 2 L/m per nasal cannula. He is afebrile. Hemodynamically stable. NicoDerm patch in place. The patient is seen today 07/25/2023 in follow-up on the selective care unit. He is ambulating in his room. Awake and alert in no acute distress. Denies any chest pain. Denies any worsening shortness of breath, cough or congestion. He is maintaining good O2 saturations in the 90s on 2 L/m per nasal cannula. Afebrile. Hemodynamically stable. Sodium 134. Potassium 4.3. Bicarb 28. BUN 19. Creatinine 0.87. Glucose 113. NicoDerm patch remains in place. Progress note dated 07/26/2023. The patient is seen today in room 356. The patient is scheduled to have bypass grafting, on July 27. Currently he is on 2 L of oxygen. No IV fluids. He is sitting at the bedside. White count 5.4, hemoglobin 10.4, hematocrit 30.9, with a normal platelet count. Sodium 132, potassium 4.3, chlorides 98, CO2 29, BUN 21, creatinine 0.85. Chest x-ray shows changes of COPD, with mild interstitial pulmonary edema. Progress note dated 07/27/2023. The patient was seen this morning in room 356. The patient is scheduled to have open-heart surgery today, 07/27/2023. He is currently on 2 L of oxygen. Lab data today includes a glucose of 121. Lab data from July 26 have been reviewed. X-rays, medications, and other information has also been reviewed. Previous chest x-ray shows changes of COPD, with mild interstitial pulmonary edema. Progress note dated 07/28/2023. The patient is postop day #1, status post three-vessel bypass grafting, mitral valve repair, tricuspid valve repair, and exclusion of the left atrial appendage. The patient's currently been extubated to 4 L of oxygen. He was extubated on July 27, at nighttime. He is getting saline at 50 mL an hour, and an insulin drip at 2.5 units an hour. The patient is very anxious and received some benzodiazepine. White count 6.9, hemoglobin 7.2, hematocrit 20.9, and a platelet count of 50,000. Sodium 135, potassium 4.6, chlorides 105, CO2 26, BUN 23, and creatinine 0.94. Chest x-ray shows some mild pulmonary vascular congestion, and some basilar atelectasis. The endotracheal tube has been removed. Progress note dated 07/29/2023. This patient is seen today in room 266. He's postoperative day #2, status post three-vessel bypass grafting, mitral and tricuspid valve repair, and exclusion of the left atrial appendage. Patient is currently on 4 L of oxygen. He is g etting saline at 20 mL an hour. He will get 1 unit of packed red blood cells today. White count is 9, 11 6.9, hematocrit 20.4, and platelet count 82,000. Sodium 132, potassium 4.3, chlorides 104, CO2 25, BUN 23, and creatinine 0.82. Albumin is 2.7. Chest x-ray shows some airspace opacities at the right lung base. There is also some infiltrate or atelectasis at the left lung base. Progress note dated 07/30/2023. The patient is again seen today in room 266. He's postoperative day #3, status post three-vessel bypass grafting, mitral and tricuspid valve repair, and exclusion of left atrial appendage. Currently, the patient's sitting upright in the chair. He is on 2 L of oxygen. He continues on amiodarone at 0.5 mg/m. He is also getting saline at 20 mL an hour. According to the nurse, he had a pretty stable and uneventful night. White count 8.1, he will been 7.7, hematocrit 22.1, and platelet count 92,000. Sodium 130, potassium 4.5, chlorides 102, CO2 26, BUN 24, and creatinine 0.74. AST is 248. ALT is 79. Chest x-ray in my opinion show some cardiomegaly, and mild increased vascular congestion. Progress note dated 07/31/2023. 73-year-old male, seen in room 266. He has postoperative day #4, status post three-vessel bypass grafting, mitral repair, tricuspid valve repair, and exclusion of left atrial appendage. The patient is currently on 2 L of oxygen. He is getting saline at 20 mL an hour. He sitting in a chair next to his bed. He is getting about 750 mL on his incentive spirometer. White count of 6.3, hemoglobin 7.2, hematocrit 21.4, with platelet count of 120,000. Sodium 128, potassium 4, chloride 98, CO2 24, BUN 29, and creatinine 0.81. AST is 240, with an ALT of 127. Chest x-ray show some bibasilar atelectasis, tiny effusions, some postoperative changes. On today's evaluation of 08/01/2023, the patient is doing well on 2 L of oxygen by nasal cannula. His postoperative day #4. Hemodynamically stable. Cardiac rhythm is paced with an underlying junctional rhythm.. Using incentive spirometer. The patient had a follow-up chest x-ray today that shows cardiomegaly. There is some pulmonary vascular congestion and he was given 20 mg of IV Lasix today. He still has some patchy bilateral pulmonary infiltrates more so in the right upper lobe. His white cell count is at 9.7, hemoglobin is at 8.4, and sodium is at 129, potassium is at 4, BUN is at 28 with a creatinine of 0.8. LFTs are slightly abnormal with an AST of 431 and ALT of 231. Lipitor was accordingly placed on hold. He remains on aspirin. He remains on Plavix. He remains off metoprolol because of his underlying junctional cardiac rhythm. Anticoagulations with Arixtra 2.5 mg subcu once a day. No other significant events overnight. Neurologically intact. Communicating. Tolerating his diet. He had adequate bowel movements. Noted the patient had severe diffuse calcified triple-vessel coronary artery disease with severe mitral regurgitation and prolapse of P2 with a ruptured cord and tricuspid regurgitation with severe pulmonary hypertension. He underwent three-vessel bypass surgery and mitral valve repair and tricuspid valve repair. On today's evaluation of 08/02/2023, the patient is postop day #5. His recovering from his cardiac surgery. His underlying cardiac rhythm is A. fib with bradycardia and occasional junctional rhythm. He has a pacemaker as a backup at the rate of 50. He is not taking any beta blockers at this point in time. His being contemplated for a pacemaker insertion. Meanwhile, the patient is currently on 2 L of oxygen by nasal cannula. Is oxygen saturations 95%. Hemodynamically stable. Hemoglobin is at 7.8 slightly lower compared to yesterday. Sodium is at 130, BUN is at 30 with a creatinine of 1.09. Chest x-ray is essentially unchanged. On today's evaluation of 08/03/2023, the patient is currently postop day #6, the patient remains on 2 L of oxygen by nasal cannula. He has a backup pacing at the rate of 50 and the patient has going to undergo a pacemaker insertion today. With activity, his cardiac rhythm is in nature fibrillation and sometimes goes up in the mid 70s. While at rest, he seems to be more so bradycardic in place. He is still using the incentive spirometer. Is falling approximately 1000. Chest x-ray shows small bilateral pleural effusions. No evidence of any pneumothorax and there is postthoracotomy changes. He remains on 2 L. He is ambulating. He is a bit nervous and anxious. His surgical 1 site is dry clean and intact. He has a hemoglobin of 7.3, white cell count of 6.8, B is a 37 with a creatinine of 1.1. LFTs are improving. Sodium levels of 131. Not receiving any beta blockers. He is on aspirin and Plavix. He is also on Cozaar for blood pressure control. Blood pressures under adequate control for now. No significant hypertension or hypotension. No nausea. No emesis. No other significant events overnight. Neurologically intact and moving all 4 extr emities without any limitation. On 08/04/2023, the patient is postop day #7. The patient underwent a dual- chamber pacemaker insertion yesterday as the patient was having sick sinus syndrome with atrial fibrillation and heart rate that were quite low and occasional junctional beats. Based on that, a dual-chamber pacemaker was inserted without any complications. The patient's current cardiac rhythm. Beta blockers were started on him and currently is on metoprolol 12.5 mg by mouth twice a day. He remains on amiodarone 200 mg by mouth twice a day. Anticoagulation is also to be started today. No other complaints otherwise for now. He is on oxygen at 2 L with a pulse ox of 97%. His blood work shows a WBC count of 7.3, hemoglobin of 8 and a platelet count of 225. BUN is at 31 with a creatinine of 0.8. Sodium level is at 133. He is afebrile. He is using the incentive spirometer. He is ambulating. He is tolerating his diet. No issues with pain. Using the incentive spirometer and reaching 1000. On 08/05/2023, patient is postop day #8. The patient is currently on room air oxygen. Pacemaker was inserted successfully. Chest x-ray from today shows mild pulmonary vascular congestion. Otherwise no other topical to the pacemaker insertion and the patient has ventricular pacing at rate of 60 and occasionally his heart rate is above 60 with atrial fibrillation. He remains on beta blockers. He remains on anticoagulation with Eliquis and this was started. He is using the incentive spirometer. He is ambulating. His sternal wound is dry and clean. No syncope. No focal neurological deficits. He has produced adequate amount of urine output. He is using the incentive spirometer. No other significant events over the past 24 hours. 08/06/2023, the patient is postop day #9. The patient doing extremely well. He is ambulating. Is on room air oxygen. He is ventricularly paced for now. Hemoglobin is at 8.1, BUN is at 35 with a creatinine of 1.06 and a sodium level is at 136. The patient has no specific complaints. He is ambulating. He is using the [employer] spirometer. He is afebrile. He is condition is essentially stable. He was moved out of the intensive care unit yesterday he is currently on a cardiac floor. Objective - Vital Signs Vital signs: Vital Signs Temp 97.9 F 08/06/23 04:00 Pulse 64 08/06/23 08:18 Resp 19 08/06/23 04:00 BP 110/63 08/06/23 04:00 Pulse Ox 95 08/06/23 08:10 FiO2 2 08/05/23 00:00 Intake & Output 08/05/23 08/06/23 08/06/23 18:59 06:59 18:59 Intake Total 526 260 Output Total 150 550 Balance 376 -290 Weight 75.2 kg Intake: IV 30 20 Invasive Line 1 10 20 Invasive Line 10 20 Oral 496 240 Output: Urine 150 550 Other: Voiding Method Urinal Urinal # Bowel Movements 1 1 ABP, PAP, CO, CI - Last Documented Arterial Blood Pressure 103/56 Pulmonary Artery Pressure 52/14 Cardiac Output 4 Cardiac Index 2.2 - Exam CONSTITUTIONAL: Cooperative, no acute distress RESPIRATORY: Lungs sounds diminished bilaterally. Respirations even, nonlabored. Currently on room air with oxygen saturation 95%. Able to achieve 1000 mL on incentive spirometry. Strong loose cough. CARDIOVASCULAR: S1, S2 present. Irregular rate and rhythm, Vpaced at 60 BPM. Sternum stable. Palpable peripheral pulses bilaterally. No edema present. No calf pain or tenderness noted. Heart hugger, antiembolism stockings, SCDs present. GASTROINTESTINAL: Abdomen soft, nontender, nondistended. Active bowel sounds present 4 quadrants. Tolerating diet. Positive bowel movement 08/06/23 GENITOURINARY: Continues to void clear yellow urine, output 700 mL in the last 24 hours INTEGUMENTARY: Skin is warm and dry with evidence of good perfusion. Anterior chest incision well approximated. Left lower extremity EVH site well approximated. Left ant chest wall pacer site covered with dry intact dressing NEUROLOGIC: Cranial nerves II through XII intact MUSKULOSKELETAL: Able to move all extremities, strength equal bilaterally, gait normal PSYCHIATRIC: Alert and oriented to person place and time, intact judgment and insight - Labs CBC & Chem 7: 08/06/23 07:06 08/06/23 07:06 Labs: Abnormal Lab Results - Last 24 Hours (Table) 08/05/23 08/05/23 08/05/23 Range/Units 11:35 17:06 20:32 RBC (4.30-5.90) m/uL Hgb (13.0-17.5) gm/dL Hct (39.0-53.0) % MCV (80.0-100.0) fL RDW (11.5-15.5) % Sodium (137-145) mmol/L BUN (9-20) mg/dL POC Glucose (mg/dL) 176 H 123 H 161 H (70-110) mg/dL ALT (4-49) U/L Total Protein (6.3-8.2) g/dL Albumin (3.5-5.0) g/dL 08/06/23 08/06/23 Range/Units 07:06 07:06 RBC 2.59 L (4.30-5.90) m/uL Hgb 8.1 L (13.0-17.5) gm/dL Hct 26.3 L (39.0-53.0) % MCV 101.6 H (80.0-100.0) fL RDW 20.5 H (11.5-15.5) % Sodium 136 L (137-145) mmol/L BUN 35 H (9-20) mg/dL POC Glucose (mg/dL) (70-110) mg/dL ALT 63 H (4-49) U/L Total Protein 6.1 L (6.3-8.2) g/dL Albumin 3.1 L (3.5-5.0) g/dL Microbiology - Last 24 Hours (Table) 07/28/23 10:55 Fungal Culture - Preliminary Pericardial Fluid Assessment and Plan Plan: Postop day # 9 status post three-vessel bypass grafting, mitral valve repair, tricuspid valve repair, and exclusion of the left atrial appendage. Patient also status post mitral valve and tricuspid valve repair. Routine postoperative ventilator management, with extubation, on July 27. The patient is currently on oxygen at 2 L/m nasal cannula. All of the chest tubes are removed. Multi-vessel coronary artery disease and severe mitral regurgitation, being considered for open heart surgery with surgical revascularization and mitral sampson ve replacement, however, the patient does want to proceed with this option. Sick sinus syndrome along with atrial fibrillation/Junctional cardiac rhythm and patient is post pacemaker insertion the patient has a dual-chamber pacemaker in place. The patient has ventricular pacing at the rate of 60 with occasional A. fib rhythm. Benign essential hypertension. Hyperlipidemia. Abdominal aortic aneurysm, measuring 3.3 cm incidentally found on chest CTA. GERD. Chronic and ongoing nicotine dependence. Acute Anemia, hemoglobin of 8.1, expected outcome of surgery Plan: No active fallacious for now Improving Chest x-ray shows atelectatic changes in lung bases Dual-chamber pacemaker inserted and the patient is currently ventricular paced at the rate of 60 Continue metoprolol 12.5 mg twice a day Continue anticoagulation with Eliquis Continue aspirin Epicardial pacer wires were removed Continue using the spirometer Increase mobility Chest x-ray was noted We'll continue to follow
[2023-08-06 12:35] LABS: Glucose,Whole Blood 107 mg/dL (70-110)
[2023-08-06] MEDS: LOSARTAN 25 MG TAB PO SCH (12:57)
[2023-08-06] MEDS: ASCORBIC ACID 500 MG TAB PO SCH (12:57)
[2023-08-06] MEDS: FERROUS SULFATE 325 MG TAB PO SCH (12:57)
[2023-08-06 15:00] LABS: % Iron Saturation 9.76 (15.00-50.00)
--- NOTE | 2023-08-06 15:25 | P.PN ---
Subjective Progress Note Date: 08/06/23 SUBJECTIVE Patient is doing well from cardiac vessel standpoint blood pressure 110/56, heart rate at 60 beats a minute. Patient is in 100% paced rhythm with underlying atrial fibrillation. On patient's creatinine is 1.07 today. creatinine was 0.86 -->1.03. I would recommend to stop his Lasix and allow natural dialysis. His hemoglobin is 7.6.-->8.1 with iron supplementation. Hemoglobin has somewhat stabilized. His iron and iron-binding capacity significantly low with ferritin being high. As he has shown response with oral iron therapy, we can continue that and he might not need IV iron. PHYSICAL EXAMINATION Vital signs reviewed. CONSTITUTIONAL: No apparent distress. HEENT: Pupils are reactive to light. No pallor, no icterus. HEART EXAMINATION:Surgical incision is intact, regular rate and rhythm, normal S1 and S2 CHEST EXAMINATION: Clear to auscultate in bilateral lung renae VASCULAR and EXTREMITIES: 1+ swelling in b/l le ABDOMEN: Soft, nontender. Positive bowel sounds. NEUROLOGIC EXAMINATION: No focal neurological deficit. Detialed neuro exam was not performed. 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 Continue metoprolol 12.5 mg twice a day. Continue statin Continue amiodarone 200 mg twice a day as per cardiac thoracic surgery team's recommendation Continue Eliquis for atrial fibrillation Stop Lasix His hemoglobin is 7.6.-->8.1 with iron supplementation. Hemoglobin has somewhat stabilized. His iron and iron-binding capacity significantly low with ferritin being high. As he has shown response with oral iron therapy, we can continue that and he might not need IV iron. Objective - Vital Signs Vital signs: Vital Signs Temp 97.9 F 08/06/23 04:00 Pulse 68 08/06/23 11:54 Resp 19 08/06/23 04:00 BP 110/63 08/06/23 04:00 Pulse Ox 95 08/06/23 08:10 FiO2 2 08/05/23 00:00 Intake & Output 08/05/23 08/06/23 08/06/23 18:59 06:59 18:59 Intake Total 526 260 240 Output Total 150 550 Balance 376 -290 240 Weight 75.2 kg Intake: IV 30 20 Invasive Line 1 10 20 Invasive Line 10 20 Oral 496 240 240 Output: Urine 150 550 Other: Voiding Method Urinal Urinal # Bowel Movements 1 1 ABP, PAP, CO, CI - Last Documented Arterial Blood Pressure 103/56 Pulmonary Artery Pressure 52/14 Cardiac Output 4 Cardiac Index 2.2 - Labs CBC & Chem 7: 08/06/23 07:06 08/06/23 07:06 Labs: Abnormal Lab Results - Last 24 Hours (Table) 08/05/23 08/05/23 08/06/23 Range/Units 17:06 20:32 07:06 RBC 2.59 L (4.30-5.90) m/uL Hgb 8.1 L (13.0-17.5) gm/dL Hct 26.3 L (39.0-53.0) % MCV 101.6 H (80.0-100.0) fL RDW 20.5 H (11.5-15.5) % Sodium (137-145) mmol/L BUN (9-20) mg/dL POC Glucose (mg/dL) 123 H 161 H (70-110) mg/dL Iron (65-175) UG/DL % Saturation (15.00-50.00) ALT (4-49) U/L Total Protein (6.3-8.2) g/dL Albumin (3.5-5.0) g/dL 08/06/23 08/06/23 Range/Units 07:06 07:06 RBC (4.30-5.90) m/uL Hgb (13.0-17.5) gm/dL Hct (39.0-53.0) % MCV (80.0-100.0) fL RDW (11.5-15.5) % Sodium 136 L (137-145) mmol/L BUN 35 H (9-20) mg/dL POC Glucose (mg/dL) (70-110) mg/dL Iron 32 L (65-175) UG/DL % Saturation 9.76 L (15.00-50.00) ALT 63 H (4-49) U/L Total Protein 6.1 L (6.3-8.2) g/dL Albumin 3.1 L (3.5-5.0) g/dL Microbiology - Last 24 Hours (Table) 07/28/23 10:55 Fungal Culture - Preliminary Pericardial Fluid
[2023-08-06 16:48] LABS: Glucose,Whole Blood 97 mg/dL (70-110)
[2023-08-06] MEDS: ACETAMINOPHEN TAB 325 MG TAB PO PRN (18:31)
[2023-08-06 19:58] LABS: Glucose,Whole Blood 124 mg/dL (70-110)
[2023-08-06] MEDS: SENNOSIDES-DOCUSATE SODIUM 1 EACH TAB PO SCH (20:29)
[2023-08-06] MEDS: ATORVASTATIN 40 MG TAB PO SCH (20:29)
[2023-08-07 02:35] LABS: Glucose,Whole Blood 94 mg/dL (70-110)
[2023-08-07 06:02] LABS: Glucose,Whole Blood 113 mg/dL (70-110)
[2023-08-07] MEDS: INSULIN ASPART (NovoLOG) 100 UNIT/ML VIAL SQ SCH ×4 (06:06→20:12)
--- NOTE | 2023-08-07 07:47 | XR ---
EXAMINATION TYPE: XR chest 2V DATE OF EXAM: 08/07/2023 COMPARISON: 12/06/2022 HISTORY: post cardiac surgery TECHNIQUE: Frontal and lateral views of the chest are obtained. FINDINGS: Scattered senescent parenchymal changes noted. Hyperinflation compatible with COPD. Persistent pulmonary venous congestion with scattered infiltrates. There appears to be interval impro vement. Small left-sided effusion. Post op cardiac changes. Heart size is stable. Mediastinal structures are stable and grossly unremarkable. No evidence for hilar prominence. Degenerative changes dorsal spine. IMPRESSION: 1. Persistent pulmonary venous congestion with scattered infiltrates. There appears to be interval im provement. Small left-sided effusion.
--- NOTE | 2023-08-07 07:52 | P.PN ---
Subjective Progress Note Date: 08/07/23 Principal diagnosis: Severe diffuse calcific triple-vessel coronary artery disease with chronically occluded RCA and first OM, unstable angina, severe mitral valve regurgitation wi th prolapse of P2 with ruptured chord, moderate tricuspid valve regurgitation with severe pulmonary hypertension. History of hypertension, hyperlipidemia, abdominal aortic aneurysm with calcification of the posterior aspect of the ascending aorta, chronic ongoing tobacco dependence, moderate restrictive lung disease, GERD, depression POD #10 triple-vessel coronary artery bypass grafting using the left internal mammary artery to the left anterior descending artery, reverse saphenous vein graft from the aorta to the first obtuse marginal artery, reverse saphenous vein graft from the aorta to the posterior descending artery, complex mitral valve repair with construction of two pairs of NeoChords to P2 and posterior ring annuloplasty using a 34 mm AnnuloFlex ring, tricuspid valve repair using a 28 mm MC3 ring, exclusion of the left atrial appendage using a 40 mm AtriClip, endoscopic harvesting of the left greater saphenous vein, intraoperative graft flow measurements using the [employer] system, intraoperative transesophageal echocardiogram and epiaortic scanning Postoperative acute blood loss anemia and thrombocytopenia, expected given hemodilution and cardiopulmonary bypass pump Paroxysmal atrial fibrillation with symptomatic bradycardia/SSS even off beta yamile and amio, afib is common after open heart surgery and is somewhat expected, bradycardia/SSS w/o BB is unexpected, unknown cause, no clear reversible cause Elevated transaminases, likely medication induced POD #3 insertion dual chamber permanent pacemaker The patient was seen and examined this morning sitting up in a recliner on the cardiac stepdown unit in no acute distress eating breakfast. Currently contro lled atrial fibrillation, occasionally V paced. Patient states post surgical pain is controlled with current medication, denies shortness of breath. Was a bit anxious yesterday when family was present, currently calm and in good spirits. Chest x-ray reviewed, labs pending. Currently on room air with oxygen saturation in the 90s. Able to achieve 1000 mL on his incentive spirometry. Patient has ambulated in the hallway. Showered daily. Asking to go home. Objective - Vital Signs Vital signs: Vital Signs Temp 97.9 F 08/07/23 04:00 Pulse 60 08/07/23 04:00 Resp 19 08/07/23 04:00 BP 117/62 08/07/23 04:00 Pulse Ox 94 L 08/07/23 04:00 FiO2 2 08/05/23 00:00 Intake & Output 08/06/23 08/07/23 08/07/23 18:59 06:59 18:59 Intake Total 794 20 Output Total 350 Balance 444 20 Weight 75 kg Intake: IV 20 20 Invasive Line 1 20 20 Oral 774 Output: Urine 350 Other: Voiding Method Urinal Urinal # Voids 1 # Bowel Movements 1 ABP, PAP, CO, CI - Last Documented Arterial Blood Pressure 103/56 Pulmonary Artery Pressure 52/14 Cardiac Output 4 Cardiac Index 2.2 - Exam CONSTITUTIONAL: Cooperative, no acute distress RESPIRATORY: Lungs sounds diminished bilaterally. Respirations even, nonlabored. Currently on room air with oxygen saturation 94%. Able to achieve 1000 mL on incentive spirometry. Strong loose cough. CARDIOVASCULAR: S1, S2 present. Irregular rate and rhythm, controlled atrial fibrillation, occasionally V paced. Sternum stable. Palpable peripheral pulses bilaterally. No edema present. No calf pain or tenderness noted. Heart hugger, antiembolism stockings, SCDs present. GASTROINTESTINAL: Abdomen soft, nontender, nondistended. Active bowel sounds present 4 quadrants. Tolerating diet. Positive bowel movement 08/06/23 GENITOURINARY: Continues to void clear yellow urine although not always captured with urinal INTEGUMENTARY: Skin is warm and dry with evidence of good perfusion. Anterior chest incision well approximated. Left lower extremity EVH site well approximated. Left ant chest wall pacer site covered with dry intact dressing NEUROLOGIC: Cranial nerves II through XII intact MUSKULOSKELETAL: Able to move all extremities, strength equal bilaterally, gait normal PSYCHIATRIC: Alert and oriented to person place and time, intact judgment and insight - Allied health notes Allied health notes reviewed: nursing - Labs CBC & Chem 7: 08/07/23 07:12 08/07/23 07:12 Labs: Abnormal Lab Results - Last 24 Hours (Table) 08/06/23 08/06/23 08/06/23 Range/Units 07:06 07:06 07:06 RBC 2.59 L (4.30-5.90) m/uL Hgb 8.1 L (13.0-17.5) gm/dL Hct 26.3 L (39.0-53.0) % MCV 101.6 H (80.0-100.0) fL RDW 20.5 H (11.5-15.5) % Sodium 136 L (137-145) mmol/L BUN 35 H (9-20) mg/dL POC Glucose (mg/dL) (70-110) mg/dL Iron 32 L (65-175) UG/DL % Saturation 9.76 L (15.00-50.00) ALT 63 H (4-49) U/L Total Protein 6.1 L (6.3-8.2) g/dL Albumin 3.1 L (3.5-5.0) g/dL 08/06/23 08/07/23 Range/Units 19:56 06:01 RBC (4.30-5.90) m/uL Hgb (13.0-17.5) gm/dL Hct (39.0-53.0) % MCV (80.0-100.0) fL RDW (11.5-15.5) % Sodium (137-145) mmol/L BUN (9-20) mg/dL POC Glucose (mg/dL) 124 H 113 H (70-110) mg/dL Iron (65-175) UG/DL % Saturation (15.00-50.00) ALT (4-49) U/L Total Protein (6.3-8.2) g/dL Albumin (3.5-5.0) g/dL - Imaging and Cardiology Chest x-ray: report reviewed, image reviewed Assessment and Plan Assessment: Severe diffuse calcific triple-vessel coronary artery disease with chronically occluded RCA and first OM, unstable angina, status post 3V CABG Severe mitral valve regurgitation with prolapse of P2 with ruptured chord, status post complex mitral valve repair Moderate tricuspid valve regurgitation with severe pulmonary hypertension, status post tricuspid valve repair History of hypertension Hyperlipidemia, treated, cholesterol 121, LDL 60.5 Abdominal aortic aneurysm with calcification of the posterior aspect of the ascending aorta Chronic ongoing tobacco dependence Moderate restrictive lung disease, preoperative FEV1 54% of predicted GERD Depression Postoperative acute blood loss anemia and thrombocytopenia, expected Paroxysmal atrial fibrillation, bradycardia/SSS, S/P permanent pacemaker Elevated transaminases, resolving Plan: Continue to optimize medical management with low dose aspirin, statin, beta yamile. Continue low dose ARB for afterload reduction with hold parameters. Recommend increasing pacemaker rate to 70 BPM Continue Amiodarone, Eliquis Encourage incentive spirometry 10 x every hour while awake. Bronchodilators per pulmonology Increase activity as tolerated. PT/OT/cardiac rehab consulted Will monitor daily labs and CXR. Electrolyte replacement per protocol. No lasix today GI/DVT prophylaxis Pain control with current medication regimen Insulin management per internal medicine, patient is not diabetic with preoperative HgbA1c 5.8%, but needs tight blood sugar control to prevent infection Continue to record strict accurate I/Os Daily weights Smoking cessation counseling and education provided Will get echo tomorrow to eval LV Discharge planning in progress, anticipate discharge to home with home care tomorrow morning More recommendations to follow based on patient's progress
[2023-08-07] MEDS: PANTOPRAZOLE 40 MG/10 ML VIAL IVP SCH (08:34)
[2023-08-07] MEDS: CITALOPRAM HYDROBROMIDE 20 MG TAB PO SCH (08:35)
[2023-08-07] MEDS: NICOTINE 14MG/24HR PATCH TRANSDERM SCH (08:35)
[2023-08-07] MEDS: ALPRAZolam 0.25 MG TAB PO PRN ×2 (08:35→17:19)
[2023-08-07] MEDS: METOPROLOL TARTRATE 12.5 MG TAB PO SCH ×2 (08:35→20:12)
[2023-08-07] MEDS: CHOLECALCIFEROL 25 MCG (1000 IU) TABLET PO SCH (08:35)
[2023-08-07] MEDS: ASPIRIN 81 MG PO SCH (08:35)
[2023-08-07] MEDS: AMIODARONE 200 MG TAB PO SCH ×2 (08:35→20:13)
[2023-08-07] MEDS: APIXABAN 5 MG TAB PO SCH ×2 (08:35→20:12)
[2023-08-07] MEDS: IPRATROPIUM-ALBUTEROL 3 ML NEB INHALATION SCH ×4 (08:45→19:57)
[2023-08-07 09:05] LABS: Anisocytosis Moderate; HCT 27.2 % (39.0-53.0); HGB 8.5 gm/dL (13.0-17.5); Hypochromasia Marked; MCH 31.9 pg (25.0-35.0); MCHC 31.2 g/dL (31.0-37.0); MCV 102.2 fL (80.0-100.0); Macrocytosis Moderate; Mean Platelet Volume 8.5; Platelet Count 394 k/uL (150-450); Poikilocytosis Moderate; RBC 2.66 m/uL (4.30-5.90); RDW 20.7 % (11.5-15.5); WBC 9.5 k/uL (3.8-10.6)
[2023-08-07 09:11] LABS: ALT 76 U/L (4-49); AST 99 U/L (17-59); African American GFR (CKD) 66 (>60 ml/min/1.73 sqM); Albumin 3.3 g/dL (3.5-5.0); Alkaline Phosphatase 87 U/L (38-126); Anion Gap 9 mmol/L; Blood Urea Nitrogen 44 mg/dL (9-20); Calcium 8.6 mg/dL (8.4-10.2); Carbon Dioxide 25 mmol/L (22-30); Chloride 101 mmol/L (98-107); Glucose 96 mg/dL (74-99); Non-African American GFR(CKD) 57 (>60 ml/min/1.73 sqM); Sodium 135 mmol/L (137-145); Total Bilirubin 1.5 mg/dL (0.2-1.3); Total Protein 6.5 g/dL (6.3-8.2)
[2023-08-07] MEDS ORDERED: CALCIUM GLUCONATE IN NACL 1 GM in SALINE 1 100ML.BAG IVPB ONE (09:30)
[2023-08-07] MEDS: ASCORBIC ACID 500 MG TAB PO SCH (11:39)
[2023-08-07] MEDS: FERROUS SULFATE 325 MG TAB PO SCH (11:39)
[2023-08-07] MEDS: ACETAMINOPHEN TAB 325 MG TAB PO PRN ×2 (11:39→17:19)
[2023-08-07] MEDS: LOSARTAN 25 MG TAB PO SCH (11:40)
[2023-08-07 12:01] LABS: Glucose,Whole Blood 103 mg/dL (70-110)
--- NOTE | 2023-08-07 12:07 | P.PN ---
Subjective Progress Note Date: 08/07/23 The patient is seen today 07/22/2023 in follow-up on the selective care unit. He is currently sitting up in bed. Awake and alert in no acute distress. He is maintaining O2 saturations in the 90s on 3 L/m per nasal cannula. He is pulling approximately 1200 ML's on his incentive spirometer. He continues to be worked up for possible bypass surgery along with mitral valve and tricuspid valve repairs. FEV1 value was 1.26 or 54% of predicted. NicoDerm patch remains in place. The patient is seen today 07/23/2023 in follow-up on the selective care unit. He is currently sitting up in a chair at the bedside. Awake and alert in no acute distress. Denies any worsening shortness of breath cough or congestion. Denies any chest pain. He is maintaining good O2 saturations up to 97% on room air. Afebrile. Sodium 135. Potassium 3.7. Bicarb 27. BUN 22. Creatinine 0.90. NicoDerm patch in place. The patient is seen today 07/24/2023 in follow-up on the selective care unit. Awake and alert in no acute distress. Sitting in bed. Denies any chest pain. No palpitations. No worsening shortness of breath or cough. He did have a nightmare and some confusion last evening. Oriented 3 today. Maintaining O2 saturations in the 90s on 2 L/m per nasal cannula. He is afebrile. Hemodynamically stable. NicoDerm patch in place. The patient is seen today 07/25/2023 in follow-up on the selective care unit. He is ambulating in his room. Awake and alert in no acute distress. Denies any chest pain. Denies any worsening shortness of breath, cough or congestion. He is maintaining good O2 saturations in the 90s on 2 L/m per nasal cannula. Afebrile. Hemodynamically stable. Sodium 134. Potassium 4.3. Bicarb 28. BUN 19. Creatinine 0.87. Glucose 113. NicoDerm patch remains in place. Progress note dated 07/26/2023. The patient is seen today in room 356. The patient is scheduled to have bypass grafting, on July 27. Currently he is on 2 L of oxygen. No IV fluids. He is sitting at the bedside. White count 5.4, hemoglobin 10.4, hematocrit 30.9, with a normal platelet count. Sodium 132, potassium 4.3, chlorides 98, CO2 29, BUN 21, creatinine 0.85. Chest x-ray shows changes of COPD, with mild interstitial pulmonary edema. Progress note dated 07/27/2023. The patient was seen this morning in room 356. The patient is scheduled to have open-heart surgery today, 07/27/2023. He is currently on 2 L of oxygen. Lab data today includes a glucose of 121. Lab data from July 26 have been reviewed. X-rays, medications, and other information has also been reviewed. Previous chest x-ray shows changes of COPD, with mild interstitial pulmonary edema. Progress note dated 07/28/2023. The patient is postop day #1, status post three-vessel bypass grafting, mitral valve repair, tricuspid valve repair, and exclusion of the left atrial appendage. The patient's currently been extubated to 4 L of oxygen. He was extubated on July 27, at nighttime. He is getting saline at 50 mL an hour, and an insulin drip at 2.5 units an hour. The patient is very anxious and received some benzodiazepine. White count 6.9, hemoglobin 7.2, hematocrit 20.9, and a platelet count of 50,000. Sodium 135, potassium 4.6, chlorides 105, CO2 26, BUN 23, and creatinine 0.94. Chest x-ray shows some mild pulmonary vascular congestion, and some basilar atelectasis. The endotracheal tube has been removed. Progress note dated 07/29/2023. This patient is seen today in room 266. He's postoperative day #2, status post three-vessel bypass grafting, mitral and tricuspid valve repair, and exclusion of the left atrial appendage. Patient is currently on 4 L of oxygen. He is g etting saline at 20 mL an hour. He will get 1 unit of packed red blood cells today. White count is 9, 11 6.9, hematocrit 20.4, and platelet count 82,000. Sodium 132, potassium 4.3, chlorides 104, CO2 25, BUN 23, and creatinine 0.82. Albumin is 2.7. Chest x-ray shows some airspace opacities at the right lung base. There is also some infiltrate or atelectasis at the left lung base. Progress note dated 07/30/2023. The patient is again seen today in room 266. He's postoperative day #3, status post three-vessel bypass grafting, mitral and tricuspid valve repair, and exclusion of left atrial appendage. Currently, the patient's sitting upright in the chair. He is on 2 L of oxygen. He continues on amiodarone at 0.5 mg/m. He is also getting saline at 20 mL an hour. According to the nurse, he had a pretty stable and uneventful night. White count 8.1, he will been 7.7, hematocrit 22.1, and platelet count 92,000. Sodium 130, potassium 4.5, chlorides 102, CO2 26, BUN 24, and creatinine 0.74. AST is 248. ALT is 79. Chest x-ray in my opinion show some cardiomegaly, and mild increased vascular congestion. Progress note dated 07/31/2023. 73-year-old male, seen in room 266. He has postoperative day #4, status post three-vessel bypass grafting, mitral repair, tricuspid valve repair, and exclusion of left atrial appendage. The patient is currently on 2 L of oxygen. He is getting saline at 20 mL an hour. He sitting in a chair next to his bed. He is getting about 750 mL on his incentive spirometer. White count of 6.3, hemoglobin 7.2, hematocrit 21.4, with platelet count of 120,000. Sodium 128, potassium 4, chloride 98, CO2 24, BUN 29, and creatinine 0.81. AST is 240, with an ALT of 127. Chest x-ray show some bibasilar atelectasis, tiny effusions, some postoperative changes. On today's evaluation of 08/01/2023, the patient is doing well on 2 L of oxygen by nasal cannula. His postoperative day #4. Hemodynamically stable. Cardiac rhythm is paced with an underlying junctional rhythm.. Using incentive spirometer. The patient had a follow-up chest x-ray today that shows cardiomegaly. There is some pulmonary vascular congestion and he was given 20 mg of IV Lasix today. He still has some patchy bilateral pulmonary infiltrates more so in the right upper lobe. His white cell count is at 9.7, hemoglobin is at 8.4, and sodium is at 129, potassium is at 4, BUN is at 28 with a creatinine of 0.8. LFTs are slightly abnormal with an AST of 431 and ALT of 231. Lipitor was accordingly placed on hold. He remains on aspirin. He remains on Plavix. He remains off metoprolol because of his underlying junctional cardiac rhythm. Anticoagulations with Arixtra 2.5 mg subcu once a day. No other significant events overnight. Neurologically intact. Communicating. Tolerating his diet. He had adequate bowel movements. Noted the patient had severe diffuse calcified triple-vessel coronary artery disease with severe mitral regurgitation and prolapse of P2 with a ruptured cord and tricuspid regurgitation with severe pulmonary hypertension. He underwent three-vessel bypass surgery and mitral valve repair and tricuspid valve repair. On today's evaluation of 08/02/2023, the patient is postop day #5. His recovering from his cardiac surgery. His underlying cardiac rhythm is A. fib with bradycardia and occasional junctional rhythm. He has a pacemaker as a backup at the rate of 50. He is not taking any beta blockers at this point in time. His being contemplated for a pacemaker insertion. Meanwhile, the patient is currently on 2 L of oxygen by nasal cannula. Is oxygen saturations 95%. Hemodynamically stable. Hemoglobin is at 7.8 slightly lower compared to yesterday. Sodium is at 130, BUN is at 30 with a creatinine of 1.09. Chest x-ray is essentially unchanged. On today's evaluation of 08/03/2023, the patient is currently postop day #6, the patient remains on 2 L of oxygen by nasal cannula. He has a backup pacing at the rate of 50 and the patient has going to undergo a pacemaker insertion today. With activity, his cardiac rhythm is in nature fibrillation and sometimes goes up in the mid 70s. While at rest, he seems to be more so bradycardic in place. He is still using the incentive spirometer. Is falling approximately 1000. Chest x-ray shows small bilateral pleural effusions. No evidence of any pneumothorax and there is postthoracotomy changes. He remains on 2 L. He is ambulating. He is a bit nervous and anxious. His surgical 1 site is dry clean and intact. He has a hemoglobin of 7.3, white cell count of 6.8, B is a 37 with a creatinine of 1.1. LFTs are improving. Sodium levels of 131. Not receiving any beta blockers. He is on aspirin and Plavix. He is also on Cozaar for blood pressure control. Blood pressures under adequate control for now. No significant hypertension or hypotension. No nausea. No emesis. No other significant events overnight. Neurologically intact and moving all 4 extr emities without any limitation. On 08/04/2023, the patient is postop day #7. The patient underwent a dual- chamber pacemaker insertion yesterday as the patient was having sick sinus syndrome with atrial fibrillation and heart rate that were quite low and occasional junctional beats. Based on that, a dual-chamber pacemaker was inserted without any complications. The patient's current cardiac rhythm. Beta blockers were started on him and currently is on metoprolol 12.5 mg by mouth twice a day. He remains on amiodarone 200 mg by mouth twice a day. Anticoagulation is also to be started today. No other complaints otherwise for now. He is on oxygen at 2 L with a pulse ox of 97%. His blood work shows a WBC count of 7.3, hemoglobin of 8 and a platelet count of 225. BUN is at 31 with a creatinine of 0.8. Sodium level is at 133. He is afebrile. He is using the incentive spirometer. He is ambulating. He is tolerating his diet. No issues with pain. Using the incentive spirometer and reaching 1000. On 08/05/2023, patient is postop day #8. The patient is currently on room air oxygen. Pacemaker was inserted successfully. Chest x-ray from today shows mild pulmonary vascular congestion. Otherwise no other topical to the pacemaker insertion and the patient has ventricular pacing at rate of 60 and occasionally his heart rate is above 60 with atrial fibrillation. He remains on beta blockers. He remains on anticoagulation with Eliquis and this was started. He is using the incentive spirometer. He is ambulating. His sternal wound is dry and clean. No syncope. No focal neurological deficits. He has produced adequate amount of urine output. He is using the incentive spirometer. No other significant events over the past 24 hours. 08/06/2023, the patient is postop day #9. The patient doing extremely well. He is ambulating. Is on room air oxygen. He is ventricularly paced for now. Hemoglobin is at 8.1, BUN is at 35 with a creatinine of 1.06 and a sodium level is at 136. The patient has no specific complaints. He is ambulating. He is using the senna spirometer. He is afebrile. He is condition is essentially stable. He was moved out of the intensive care unit yesterday he is currently on a cardiac floor. 72,023, the patient is postop day #10. Ambulating. Currently on room air oxygen. Tolerating diet. No respiratory distress. Using incentive spirometer. The labs are all stable, hemoglobin is 8.5, white cell cause of 9.5, BUN is at 44 with a creatinine of 1.2 and his sodium levels of 135. Glucose at 103. Objective - Vital Signs Vital signs: Vital Signs Temp 98.0 F 08/07/23 08:43 Pulse 64 08/07/23 08:56 Resp 16 08/07/23 08:43 BP 128/66 08/07/23 08:43 Pulse Ox 94 L 08/07/23 08:43 FiO2 2 08/05/23 00:00 Intake & Output 08/06/23 08/07/23 08/07/23 18:59 06:59 18:59 Intake Total 794 20 10 Output Total 350 175 Balance 444 20 -165 Weight 75 kg Intake: IV 20 20 10 Invasive Line 1 20 20 10 Oral 774 Output: Urine 350 175 Other: Voiding Method Urinal Urinal Urinal # Voids 1 1 # Bowel Movements 1 1 ABP, PAP, CO, CI - Last Documented Arterial Blood Pressure 103/56 Pulmonary Artery Pressure 52/14 Cardiac Output 4 Cardiac Index 2.2 - Exam CONSTITUTIONAL: Cooperative, no acute distress RESPIRATORY: Lungs sounds diminished bilaterally. Respirations even, nonlabored. Currently on room air with oxygen saturation 95%. Able to achieve 1000 mL on incentive spirometry. Strong loose cough. CARDIOVASCULAR: S1, S2 present. Irregular rate and rhythm, Vpaced at 60 BPM. Sternum stable. Palpable peripheral pulses bilaterally. No edema present. No calf pain or tenderness noted. Heart hugger, antiembolism stockings, SCDs present. GASTROINTESTINAL: Abdomen soft, nontender, nondistended. Active bowel sounds present 4 quadrants. Tolerating diet. Positive bowel movement 08/06/23 GENITOURINARY: Continues to void clear yellow urine, output 700 mL in the last 24 hours INTEGUMENTARY: Skin is warm and dry with evidence of good perfusion. Anterior chest incision well approximated. Left lower extremity EVH site well approximated. Left ant chest wall pacer site covered with dry intact dressing NEUROLOGIC: Cranial nerves II through XII intact MUSKULOSKELETAL: Able to move all extremities, strength equal bilaterally, gait normal PSYCHIATRIC: Alert and oriented to person place and time, intact judgment and insight - Labs CBC & Chem 7: 08/07/23 07:12 08/07/23 07:12 Labs: Abnormal Lab Results - Last 24 Hours (Table) 08/06/23 08/06/23 08/07/23 Range/Units 07:06 19:56 06:01 RBC (4.30-5.90) m/uL Hgb (13.0-17.5) gm/dL Hct (39.0-53.0) % MCV (80.0-100.0) fL RDW (11.5-15.5) % Sodium (137-145) mmol/L BUN (9-20) mg/dL POC Glucose (mg/dL) 124 H 113 H (70-110) mg/dL Iron 32 L (65-175) UG/DL % Saturation 9.76 L (15.00-50.00) Total Bilirubin (0.2-1.3) mg/dL AST (17-59) U/L ALT (4-49) U/L Albumin (3.5-5.0) g/dL 08/07/23 08/07/23 Range/Units 07:12 07:12 RBC 2.66 L (4.30-5.90) m/uL Hgb 8.5 L (13.0-17.5) gm/dL Hct 27.2 L (39.0-53.0) % MCV 102.2 H (80.0-100.0) fL RDW 20.7 H (11.5-15.5) % Sodium 135 L (137-145) mmol/L BUN 44 H (9-20) mg/dL POC Glucose (mg/dL) (70-110) mg/dL Iron (65-175) UG/DL % Saturation (15.00-50.00) Total Bilirubin 1.5 H (0.2-1.3) mg/dL AST 99 H (17-59) U/L ALT 76 H (4-49) U/L Albumin 3.3 L (3.5-5.0) g/dL Assessment and Plan Plan: Postop day # 10 status post three-vessel bypass grafting, mitral valve repair, tricuspid valve repair, and exclusion of the left atrial appendage. Patient also status post mitral valve and tricuspid valve repair. Routine postoperative ventilator management, with extubation, on July 27. The patient is currently on oxygen at 2 L/m nasal cannula. All of the chest tubes are removed. Multi-vessel coronary artery disease and severe mitral regurgitation, being considered for open heart surgery with surgical revascularization and mitral valve replacement, however, the patient does want to proceed with this option. Sick sinus syndrome along with atrial fibrillation/Junctional cardiac rhythm and patient is post pacemaker insertion the patient has a dual-chamber pacemaker in place. The patient has ventricular pacing at the rate of 60 with occasional A. fib rhythm. Benign essential hypertension. Hyperlipidemia. Abdominal aortic aneurysm, measuring 3.3 cm incidentally found on chest CTA. GERD. Chronic and ongoing nicotine dependence. Acute Anemia, hemoglobin of 8.1, expected outcome of surgery Plan: Clinically and hemodynamically stable Chest x-ray shows atelectatic changes in lung bases and the patient continues to use incentive spirometer Dual-chamber pacemaker inserted and the patient is currently ventricular paced at the rate of 60 Continue metoprolol 12.5 mg twice a day Continue anticoagulation with Eliquis and the patient is currently on Eliquis 5 mg 2 twice a day and the patient was taken aspirin Continue aspirin Epicardial pacer wires were removed Continue using the spirometer Increase mobility Chest x-ray was noted We'll continue to follow
--- NOTE | 2023-08-07 15:10 | P.PN ---
Subjective Progress Note Date: 08/07/23 SUBJECTIVE Patient is doing well from cardiac vessel standpoint. He is healing well. Creatinine 0.8, 1.03, 1.2 today. Agree with holding diuretics. Continue nature dialysis. PHYSICAL EXAMINATION Vital signs reviewed. CONSTITUTIONAL: No apparent distress. HEENT: Pupils are reactive to light. No pallor, no icterus. HEART EXAMINATION:Surgical incision is intact, regular rate and rhythm, normal S1 and S2 CHEST EXAMINATION: Clear to auscultate in bilateral lung renae VASCULAR and EXTREMITIES: 1+ swelling in b/l le ABDOMEN: Soft, nontender. Positive bowel sounds. NEUROLOGIC EXAMINATION: No focal neurological deficit. Detialed neuro exam was not performed. ASSESSMENT Complete heart block with junctional rhythm status post permanent pacemaker coronary artery disease status post CABG Essential hypertension Dyslipidemia Chronic anemia JOSE GERD Tobacco smoker PLAN Continue aspirin, plavix. Continue metoprolol 12.5 mg twice a day. Continue statin Continue amiodarone 200 mg twice a day as per cardiac thoracic surgery team's recommendation Continue Eliquis for atrial fibrillation Stop Lasix Continue oral iron I see that losartan was added yesterday with slight uptrending creatinine. I do not necessarily recommend to stop losartan but would like to continue following creatinine levels. If uptrending would like to hold it for next couple of days before resuming again. Objective - Vital Signs Vital signs: Vital Signs Temp 97.6 F 08/07/23 11:24 Pulse 66 08/07/23 11:58 Resp 20 08/07/23 11:24 BP 113/69 08/07/23 11:24 Pulse Ox 95 08/07/23 11:24 FiO2 2 08/05/23 00:00 Intake & Output 08/06/23 08/07/23 08/07/23 18:59 06:59 18:59 Intake Total 794 20 10 Output Total 350 175 Balance 444 20 -165 Weight 75 kg Intake: IV 20 20 10 Invasive Line 1 20 20 10 Oral 774 Output: Urine 350 175 Other: Voiding Method Urinal Urinal Urinal # Voids 1 1 # Bowel Movements 1 1 ABP, PAP, CO, CI - Last Documented Arterial Blood Pressure 103/56 Pulmonary Artery Pressure 52/14 Cardiac Output 4 Cardiac Index 2.2 - Labs CBC & Chem 7: 08/07/23 07:12 08/07/23 07:12 Labs: Abnormal Lab Results - Last 24 Hours (Table) 08/06/23 08/07/23 08/07/23 Range/Units 19:56 06:01 07:12 RBC 2.66 L (4.30-5.90) m/uL Hgb 8.5 L (13.0-17.5) gm/dL Hct 27.2 L (39.0-53.0) % MCV 102.2 H (80.0-100.0) fL RDW 20.7 H (11.5-15.5) % Sodium (137-145) mmol/L BUN (9-20) mg/dL POC Glucose (mg/dL) 124 H 113 H (70-110) mg/dL Total Bilirubin (0.2-1.3) mg/dL AST (17-59) U/L ALT (4-49) U/L Albumin (3.5-5.0) g/dL 08/07/23 Range/Units 07:12 RBC (4.30-5.90) m/uL Hgb (13.0-17.5) gm/dL Hct (39.0-53.0) % MCV (80.0-100.0) fL RDW (11.5-15.5) % Sodium 135 L (137-145) mmol/L BUN 44 H (9-20) mg/dL POC Glucose (mg/dL) (70-110) mg/dL Total Bilirubin 1.5 H (0.2-1.3) mg/dL AST 99 H (17-59) U/L ALT 76 H (4-49) U/L Albumin 3.3 L (3.5-5.0) g/dL
[2023-08-07 17:15] LABS: Glucose,Whole Blood 140 mg/dL (70-110)
[2023-08-07] MEDS: BENZOCAINE/MENTHOL LOZENG 1 EACH LOZENGE MUCOUS MEM PRN (17:20)
[2023-08-07 19:51] LABS: Glucose,Whole Blood 149 mg/dL (70-110)
[2023-08-07] MEDS: MELATONIN 3 MG TABLET PO PRN (20:12)
[2023-08-07] MEDS: ATORVASTATIN 40 MG TAB PO SCH (20:12)
[2023-08-07] MEDS: SENNOSIDES-DOCUSATE SODIUM 1 EACH TAB PO SCH (20:12)
--- NOTE | 2023-08-08 00:14 | P.PN ---
Subjective Progress Note Date: 08/06/23 This is a 73-year-old male who presented to the emergency department with feeling of chest pain or shortness of breath. Patient reported some pressure and squeezing sensation along with a minimal cough and bloating. Patient reports he follows with Dr. Holloway in the outpatient setting with a past medical history of GERD, hyperlipidemia, hypertension, continues to smoke about 1 pack per day, has an occasional drink although not very often and denies any other illicit drug use. Chest x-ray in the ER shows interstitial infiltrates noted with mid and lower lung zones bilaterally that could reflect edema versus interstitial pneumonia. Patient underwent CTA of the chest showing no diagnostic evidence of PE, COPD with pulmonary fibrosis correlate for mild CHF with a dense coronary artery atherosclerosis noted along with incidental note of abdominal aortic aneurysm partially included measuring approximately 3.3 cm with nonspecific mediastinal and hilar lymphadenopathy. There is a prominent pulmon seferino artery that can be associated with pulmonary artery hypertension. 2-D echo was ordered and pending and was patient was admitted for chest pain for cardiology evaluation. Patient started on heparin as troponins was 0.031 and trending up at 0.043. Virology testing including influenza, RSV, and CoVid were all negative. WBC revealed a 10.8, hemoglobin 15.8, platelets 298, INR 1.0, sodium was 139 with a potassium of 3.9, BUN was 14 with creatinine of 0.86, total bili is 0.6, LFTs within normal limits, BNP was 546. Patient is currently maintained on 2 L of oxygen via nasal cannula for shortness of breath and oxygen saturations are 95-98% and patient reports he does not wear oxygen outpatient. Patient has been counseled extensively on complete tobacco cessation. 07/21/2023 Patient is seen and evaluated in follow-up with cardiology following along with CT surgery which has been consulted. Patient underwent cardiac catheterization showing triple-vessel heart disease and cardiothoracic has been consulted to discuss possible surgical intervention. Initiation of preoperative clearance has been ongoing and patient was scheduled to undergo NICOLAS today. Patient continues on 2 L via nasal cannula and reports his shortness of breath is improved and keeps asking if he could go home. Awaiting further evaluation from CT surgery and will discuss further with them about this. Family at the bedside with multiple questions and concerns were answered to the best of our ability. Patient's at bedside reports he smokes at least 2 packs a day of cigarettes and he mentioned only 1 pack per day and also drinks coffee from the time he wakes up until the time he goes to bed all day. Patient is afebrile denies chest pain or palpitations. No worsening shortness of breath noted. Patient was nothing by mouth for NICOLAS and diet resumed after procedure and tolerating with no reports of nausea or vomiting. Pro-calcitonin was normal and will discontinue empiric antibiotics. 07/22/2023 Patient is seen in follow-up today undergoing continued surgical work up for severe triple vessel disease. Patient continues to report he feels well and would like to go home prior to surgery. Patient is still requiring 2 liters via NC of . Multiple medical consultations following. Tentative surgery on Tuesday. Per cardiology, no plans for discharge prior to surgery at this time. Smoking cessation reinforced and patient remains on nicotine patch. Patient is afebrile and denies any chest pain or shortness of breath. Tolerating diet with no reported nausea or vomiting. 07/23/2023 Patient is currently lying in bed. Awake alert and oriented x3. Able to ambulate in the room. No complaints of chest pain or shortness of breath. No nausea vomiting abdominal pain or diarrhea. Saturating at 97% on room air. Patient has been afebrile. No cough or sputum production. Laboratory data showed sodium 135 potassium 3.7 chloride 100 bicarb is 27 BUN 2020 creatinine 0.9 and blood sugars 150. Patient is being continued on aspirin and statin, metoprolol and Aldactone. Cardiology and CT surgery is on board. Patient is scheduled for coronary artery bypass graft on 07/27/2023. 07/24/2023 Patient is currently in the telemetry unit. No complaints of chest pain or shortness of breath. No nausea vomiting abdominal pain or diarrhea. Able to ambulate in the room. Currently on oxygen at 2 L via nasal cannula and saturating at 100%. Patient has been afebrile. No acute overnight issues. Naya ramirez is using incentive spirometry. Scheduled for coronary revascularization surgery on 07/27/2023. Cardiology, pulmonary and CT surgery is on board. 07/25/2023 Patient is seen in follow-up this morning continued on 2 L via nasal cannula with good oxygen saturations and takes off frequently. Patient has been up walking around and labs within normal limits. Patient is using incentive spirometer as instructed and following heart healthy diet. Planning on CABG with valve repair or replacement on Tuesday with cardiothoracic surgery. Patient is currently afebrile with no reports of chest pain or worsening shortness of breath. Patient is tolerating diet and denies nausea or vomiting. 07/26/2023 Patient seen and evaluated in follow-up today and was told by retail shift supervisor that patient was sleeping sitting at the side of the bed and fell forward striking his nasal bone and head on the table. Maxillofacial CT was done showing concern for minimal nasal bone fracture. CT brain ordered without contrast as patient will be undergoing extensive CABG surgery in the a.m. and maintained on high intensity heparin throughout. This was discussed and relayed to cardiothoracic surgery and following protocol. Patient continues to require 2-3 L via nasal cannula otherwise denies worsening shortness of breath or chest pain. Patient denies having dizziness or lightheadedness or passing out at the time of this fall. No reports of nausea or vomiting noted and patient will be nothing by mouth at midnight. 07/28/2023 Patient is seen and evaluated in follow-up today currently in the ICU with multiple medical consultations following. Patient is status post triple-vessel coronary artery bypass grafting with complex mitral valve repair. Patient continues with multiple chest tubes and Torrington catheter indwelling Napoles catheter. Patient not requiring pressor support at this time is currently sitting up in the chair. Patient does have heart hugger noted. Patient also continues with insulin drip with blood sugars well controlled and we'll transition to sliding scale and long-acting as needed possibly in 24 hours. Patient is afebrile reports some chest wall discomfort although reports to feeling well. Chest x- ray today shows residual mild pulmonary vascular congestion with some imp rovement on the right. Hemoglobin 7.2 and has received 2 units of PRBCs yesterday. Will follow-up with repeat chest x-ray and labs in the a.m. 07/29/2023 Patient is seen in follow-up today continues to be in the ICU currently sitting up in the chair. Patient reports feeling fatigued today and not getting much sleep. Hemoglobin was found to be 6.9 and awaiting receive a unit of PRBC. Patient to be transitioned off insulin drip and will start with sliding scale with Accu-Cheks before meals and at bedtime and add long-acting if needed for tight glycemic control. Patient is afebrile with no increasing shortness of breath noted. Patient is maintained on 3 L via nasal cannula maintaining oxygen saturations above 90%. Chest x-ray today shows right lung airspace opacification is concerning for developing pneumonia with stable left lower lung airspace opacification. Patient to continue with incentive spirometer at least 10 times every hour while awake. Patient is tolerating diet although not much of an appetite right now and reports to being fatigued. Will continue heart healthy diabetic diet. 08/01/2023 Patient seen and evaluated in follow-up today continues to be in the ICU with multiple medical consultations following. Patient is continued on 2 L via nasal cannula with good oxygen saturations above 95%. Patient continues to be restless and almost no sleep and has been receiving as needed Xanax with melatonin. Patient with some pulmonary congestion did receive a dose of Lasix today. Hemoglobin is stable at 8.1. Sodium slightly low at 129 with a potassium of 4.0 and creatinine is 0.80. Liver functions are elevated with an AST of 431 and ALT is 213 and statin has been discontinued for now. Recommend follow-up labs in the a.m. Blood sugars well controlled on current regimen and will continue with Accu-Cheks before meals and at bedtime and sliding scale. Encouraged oral intake and increased activity as tolerated. 08/02/2023 Patient is seen today currently sitting up in the chair with at the bedside. Patient continues to appear exhausted. Sleep cycles are often patient is sleeping mostly during the day and has been up all night. Patient does have melatonin on although not helping and as needed Xanax. Multiple medical consultations following including cardiology and patient has had continued pacer wires and remains in junctional rhythm and cardiology recommending permanent pacemaker. Plan for pacemaker on 08/03/2023. Patient was given a dose of Lasix today. Hemoglobin stable. Patient continues to have cough that sounds congeste d needs encouragement on using heart hugger. at the bedside reports she has been helping him with this 48 doesn't remember to grab the handles when coughing. Encouraged incentive spirometer use and continued increased activity as tolerated. 08/03/2023 Patient is seen and evaluated in follow-up currently undergoing permanent pacemaker placement with Dr. Rosario today. Multiple medical consultations following the patient is continued on 2 L via nasal cannula. Chest x-ray today shows resolving volume overloadsome residual remaining. Patient is maintained on breathing inhalational treatments and will continue. Blood sugars well controlled and will continue with Accu-Cheks before meals and at bedtime and sliding scale as needed. Labs reviewed today showing a slightly low potassium of 3.8 and was given potassium supplementation. Sodium 131 which is improved and liver functions improving as AST is 117 and ALT is 167. Hemoglobin is stable at 7.3 today and recommended transfuses 7 or less. 08/04/2023 Patient is seen in follow-up today status post pacemaker placement continues in the ICU with multiple medical consultations following. Patient continues on 2 L via nasal cannula maintaining oxygen saturations above 95%. Chest x-ray today shows some interval improvement with residual patchy pulmonary edema remains with a trace a left pleural effusion. Patient continues to report a cough with congestion as well as periods of feeling like he is unable to catch his breath. Patient has been up and working with physical therapy and reports to feeling exhausted. Patient continues to have issues with no sleep at night and nursing staff has been working with the patient extensively on staying awake during the day for proper sleep at night. Patient is afebrile with no reports of worsening shortness of breath or chest pains. Patient has chest wall pain and is extrem david sensitive at the pacemaker site. Hemoglobin is stable at 8 today and other labs reviewed and within normal limits. Liver functions are trending down and AST is now 68 with an ALT of 117. Follow-up chest x-ray and labs are ordered. 08/05/2023 Patient is seen in follow-up today working on being transitioned out of the ICU to 3 S. Patient reports he receives some rest last night and feels much improved. Patient is being considered for discharge possibly this weekend. Patient is afebrile with no reports of chest pains or worsening shortness of breath. Patient reports his breathing is slightly improved today and has been weaning FiO2 as tolerated. Patient tolerating diet with no reports of nausea or vomiting. Blood sugars well controlled on current regimen. 08/06/2023 Patient is currently sitting in the chair. Awake alert and oriented x3. Currently on room air. Chest x-ray showed stable changes. Otherwise denies any complaints of chest pain. Using incentive spirometry. P atient has been afebrile. No nausea vomiting abdominal pain or diarrhea. WBC 8.1 hemoglobin 8.1 and platelets 345 MCV 101.6. Sodium 136 potassium 4.6 chloride 103 bicarb is 28 BUN 35 and creatinine 1.06 low iron and transferrin saturation. Patient is on iron supplementation. Review of systems: Constitutional: No reports of fatigue, no fever, or chills, reports he got some sleep last night Cardiovascular: No reports of chest pain or palpitations, reports chest wall discomfort when coughing Respiratory: No reports of worsening shortness of breath , reports occasional cough GI: No reports of nausea, vomiting, or diarrhea : No reports of dysuria or retention Neurovascular: reports of generalized weakness All medications have been reviewed PHYSICAL EXAMINATION: GENERAL: The patient is alert and oriented x3, Well developed, well nourished. HEENT: Pupils are round and equally reacting to light. EOMI. no scleral icterus. No conjunctival pallor. Normocephalic, atraumatic. No pharyngeal erythema. No thyromegaly. No facial deformity noted on exam CARDIOVASCULAR: S1 and S2 muffled PULMONARY: diminished breath sounds bilaterally with no wheezing or rhonchi noted. ABDOMEN: soft. Nontender on exam. obese. non-distended, normoactive bowel sounds. No palpable organomegaly. MUSCULOSKELETAL: No joint swelling or deformity. EXTREMITIES: No cyanosis, clubbing, or pedal edema. NEUROLOGICAL: Gross neurological examination did not reveal any focal deficits. Diffusely weak SKIN: No rashes. Assessment: Chest pain status post cardiac catheterization found to have severe triple- vessel disease status post three-vessel CABG with complex mitral valve repair Status post permanent pacemaker placement on 08/03/2023 Acute hypoxic respiratory failure, present on admission, multifactorial, secondary to severe triple vessel disease as well as acute CHF exacerbation with preserved EF Acute blood loss anemia and thrombocytopenia expected post surgery, hemoglobin stable Iron deficiency anemia NSTEMI, present on admission with elevated troponins COPD, not in exacerbation Coronary artery atherosclerosis noted on CTA 3.3 cm abdominal aortic aneurysm noted on CTA Aortic valve murmur consistent with aortic stenosis, moderate History of GERD Hyperlipidemia history Hypertension history Continued ongoing nicotine dependence, smokes about 2 packs per day Excessive caffeine intake daily GI prophylaxis DVT prophylaxis Full code Plan: Patient is continued in the ICU with multiple medical consultations following as patient is status post three-vessel CABG with complex mitral valve repair . Patient had a pacemaker placed . Patient to resume oral anticoagulant tomorrow and will follow-up on repeat labs. Continue on supplemental oxygen and wean as tolerated. Encourage incentive spirometer use at least 10 times every hour while awake Continue GI and DVT prophylaxis . Patient to continue with sliding scale with Accu-Cheks before meals and at bedtime and will add long-acting as needed if blood sugars start to elevate. Blood sugars have been well controlled on just sliding scale. Patient is not a diabetic. Encouraged increased activity as tolerated with cardiac rehab following Continue telemetry monitoring Admitting team discussing discharge this weekend. Patient is medically stable and we will continue to follow during hospitalization Objective - Vital Signs Vital signs: Vital Signs Temp 97.1 F L 08/06/23 16:39 Pulse 64 08/06/23 17:17 Resp 18 08/06/23 16:39 BP 115/55 08/06/23 16:39 Pulse Ox 94 L 08/06/23 16:39 FiO2 2 08/05/23 00:00 Intake & Output 08/06/23 08/06/23 08/07/23 06:59 18:59 06:59 Intake Total 260 794 Output Total 550 350 Balance -290 444 Weight 75.2 kg Intake: IV 20 20 Invasive Line 1 20 20 Oral 240 774 Output: Urine 550 350 Other: Voiding Method Urinal Urinal # Voids 1 # Bowel Movements 1 1 ABP, PAP, CO, CI - Last Documented Arterial Blood Pressure 103/56 Pulmonary Artery Pressure 52/14 Cardiac Output 4 Cardiac Index 2.2 - Labs CBC & Chem 7: 08/07/23 07:12 08/07/23 07:12 Labs: Abnormal Lab Results - Last 24 Hours (Table) 08/05/23 08/06/23 08/06/23 Range/Units 20:32 07:06 07:06 RBC 2.59 L (4.30-5.90) m/uL Hgb 8.1 L (13.0-17.5) gm/dL Hct 26.3 L (39.0-53.0) % MCV 101.6 H (80.0-100.0) fL RDW 20.5 H (11.5-15.5) % Sodium 136 L (137-145) mmol/L BUN 35 H (9-20) mg/dL POC Glucose (mg/dL) 161 H (70-110) mg/dL Iron (65-175) UG/DL % Saturation (15.00-50.00) ALT 63 H (4-49) U/L Total Protein 6.1 L (6.3-8.2) g/dL Albumin 3.1 L (3.5-5.0) g/dL 08/06/23 Range/Units 07:06 RBC (4.30-5.90) m/uL Hgb (13.0-17.5) gm/dL Hct (39.0-53.0) % MCV (80.0-100.0) fL RDW (11.5-15.5) % Sodium (137-145) mmol/L BUN (9-20) mg/dL POC Glucose (mg/dL) (70-110) mg/dL Iron 32 L (65-175) UG/DL % Saturation 9.76 L (15.00-50.00) ALT (4-49) U/L Total Protein (6.3-8.2) g/dL Albumin (3.5-5.0) g/dL Microbiology - Last 24 Hours (Table) 07/28/23 10:55 Fungal Culture - Preliminary Pericardial Fluid
--- NOTE | 2023-08-08 00:16 | P.PN ---
Subjective Progress Note Date: 08/07/23 This is a 73-year-old male who presented to the emergency department with feeling of chest pain or shortness of breath. Patient reported some pressure and squeezing sensation along with a minimal cough and bloating. Patient reports he follows with Dr. Holloway in the outpatient setting with a past medical history of GERD, hyperlipidemia, hypertension, continues to smoke about 1 pack per day, has an occasional drink although not very often and denies any other illicit drug use. Chest x-ray in the ER shows interstitial infiltrates noted with mid and lower lung zones bilaterally that could reflect edema versus interstitial pneumonia. Patient underwent CTA of the chest showing no diagnostic evidence of PE, COPD with pulmonary fibrosis correlate for mild CHF with a dense coronary artery atherosclerosis noted along with incidental note of abdominal aortic aneurysm partially included measuring approximately 3.3 cm with nonspecific mediastinal and hilar lymphadenopathy. There is a prominent pulmon seferino artery that can be associated with pulmonary artery hypertension. 2-D echo was ordered and pending and was patient was admitted for chest pain for cardiology evaluation. Patient started on heparin as troponins was 0.031 and trending up at 0.043. Virology testing including influenza, RSV, and CoVid were all negative. WBC revealed a 10.8, hemoglobin 15.8, platelets 298, INR 1.0, sodium was 139 with a potassium of 3.9, BUN was 14 with creatinine of 0.86, total bili is 0.6, LFTs within normal limits, BNP was 546. Patient is currently maintained on 2 L of oxygen via nasal cannula for shortness of breath and oxygen saturations are 95-98% and patient reports he does not wear oxygen outpatient. Patient has been counseled extensively on complete tobacco cessation. 07/21/2023 Patient is seen and evaluated in follow-up with cardiology following along with CT surgery which has been consulted. Patient underwent cardiac catheterization showing triple-vessel heart disease and cardiothoracic has been consulted to discuss possible surgical intervention. Initiation of preoperative clearance has been ongoing and patient was scheduled to undergo NICOLAS today. Patient continues on 2 L via nasal cannula and reports his shortness of breath is improved and keeps asking if he could go home. Awaiting further evaluation from CT surgery and will discuss further with them about this. Family at the bedside with multiple questions and concerns were answered to the best of our ability. Patient's at bedside reports he smokes at least 2 packs a day of cigarettes and he mentioned only 1 pack per day and also drinks coffee from the time he wakes up until the time he goes to bed all day. Patient is afebrile denies chest pain or palpitations. No worsening shortness of breath noted. Patient was nothing by mouth for NICOLSA and diet resumed after procedure and tolerating with no reports of nausea or vomiting. Pro-calcitonin was normal and will discontinue empiric antibiotics. 07/22/2023 Patient is seen in follow-up today undergoing continued surgical work up for severe triple vessel disease. Patient continues to report he feels well and would like to go home prior to surgery. Patient is still requiring 2 liters via NC of . Multiple medical consultations following. Tentative surgery on Tuesday. Per cardiology, no plans for discharge prior to surgery at this time. Smoking cessation reinforced and patient remains on nicotine patch. Patient is afebrile and denies any chest pain or shortness of breath. Tolerating diet with no reported nausea or vomiting. 07/23/2023 Patient is currently lying in bed. Awake alert and oriented x3. Able to ambulate in the room. No complaints of chest pain or shortness of breath. No nausea vomiting abdominal pain or diarrhea. Saturating at 97% on room air. Patient has been afebrile. No cough or sputum production. Laboratory data showed sodium 135 potassium 3.7 chloride 100 bicarb is 27 BUN 2020 creatinine 0.9 and blood sugars 150. Patient is being continued on aspirin and statin, metoprolol and Aldactone. Cardiology and CT surgery is on board. Patient is scheduled for coronary artery bypass graft on 07/27/2023. 07/24/2023 Patient is currently in the telemetry unit. No complaints of chest pain or shortness of breath. No nausea vomiting abdominal pain or diarrhea. Able to ambulate in the room. Currently on oxygen at 2 L via nasal cannula and saturating at 100%. Patient has been afebrile. No acute overnight issues. Naya ramirez is using incentive spirometry. Scheduled for coronary revascularization surgery on 07/27/2023. Cardiology, pulmonary and CT surgery is on board. 07/25/2023 Patient is seen in follow-up this morning continued on 2 L via nasal cannula with good oxygen saturations and takes off frequently. Patient has been up walking around and labs within normal limits. Patient is using incentive spirometer as instructed and following heart healthy diet. Planning on CABG with valve repair or replacement on Tuesday with cardiothoracic surgery. Patient is currently afebrile with no reports of chest pain or worsening shortness of breath. Patient is tolerating diet and denies nausea or vomiting. 07/26/2023 Patient seen and evaluated in follow-up today and was told by supervisor statement clerks that patient was sleeping sitting at the side of the bed and fell forward striking his nasal bone and head on the table. Maxillofacial CT was done showing concern for minimal nasal bone fracture. CT brain ordered without contrast as patient will be undergoing extensive CABG surgery in the a.m. and maintained on high intensity heparin throughout. This was discussed and relayed to cardiothoracic surgery and following protocol. Patient continues to require 2-3 L via nasal cannula otherwise denies worsening shortness of breath or chest pain. Patient denies having dizziness or lightheadedness or passing out at the time of this fall. No reports of nausea or vomiting noted and patient will be nothing by mouth at midnight. 07/28/2023 Patient is seen and evaluated in follow-up today currently in the ICU with multiple medical consultations following. Patient is status post triple-vessel coronary artery bypass grafting with complex mitral valve repair. Patient continues with multiple chest tubes and [place] catheter indwelling [place] catheter. Patient not requiring pressor support at this time is currently sitting up in the chair. Patient does have heart hugger noted. Patient also continues with insulin drip with blood sugars well controlled and we'll transition to sliding scale and long-acting as needed possibly in 24 hours. Patient is afebrile reports some chest wall discomfort although reports to feeling well. Chest x- ray today shows residual mild pulmonary vascular congestion with some imp rovement on the right. Hemoglobin 7.2 and has received 2 units of PRBCs yesterday. Will follow-up with repeat chest x-ray and labs in the a.m. 07/29/2023 Patient is seen in follow-up today continues to be in the ICU currently sitting up in the chair. Patient reports feeling fatigued today and not getting much sleep. Hemoglobin was found to be 6.9 and awaiting receive a unit of PRBC. Patient to be transitioned off insulin drip and will start with sliding scale with Accu-Cheks before meals and at bedtime and add long-acting if needed for tight glycemic control. Patient is afebrile with no increasing shortness of breath noted. Patient is maintained on 3 L via nasal cannula maintaining oxygen saturations above 90%. Chest x-ray today shows right lung airspace opacification is concerning for developing pneumonia with stable left lower lung airspace opacification. Patient to continue with incentive spirometer at least 10 times every hour while awake. Patient is tolerating diet although not much of an appetite right now and reports to being fatigued. Will continue heart healthy diabetic diet. 08/01/2023 Patient seen and evaluated in follow-up today continues to be in the ICU with multiple medical consultations following. Patient is continued on 2 L via nasal cannula with good oxygen saturations above 95%. Patient continues to be restless and almost no sleep and has been receiving as needed Xanax with melatonin. Patient with some pulmonary congestion did receive a dose of Lasix today. Hemoglobin is stable at 8.1. Sodium slightly low at 129 with a potassium of 4.0 and creatinine is 0.80. Liver functions are elevated with an AST of 431 and ALT is 213 and statin has been discontinued for now. Recommend follow-up labs in the a.m. Blood sugars well controlled on current regimen and will continue with Accu-Cheks before meals and at bedtime and sliding scale. Encouraged oral intake and increased activity as tolerated. 08/02/2023 Patient is seen today currently sitting up in the chair with at the bedside. Patient continues to appear exhausted. Sleep cycles are often patient is sleeping mostly during the day and has been up all night. Patient does have melatonin on although not helping and as needed Xanax. Multiple medical consultations following including cardiology and patient has had continued pacer wires and remains in junctional rhythm and cardiology recommending permanent pacemaker. Plan for pacemaker on 08/03/2023. Patient was given a dose of Lasix today. Hemoglobin stable. Patient continues to have cough that sounds congeste d needs encouragement on using heart hugger. at the bedside reports she has been helping him with this 48 doesn't remember to grab the handles when coughing. Encouraged incentive spirometer use and continued increased activity as tolerated. 08/03/2023 Patient is seen and evaluated in follow-up currently undergoing permanent pacemaker placement with Dr. Rosario today. Multiple medical consultations following the patient is continued on 2 L via nasal cannula. Chest x-ray today shows resolving volume overloadsome residual remaining. Patient is maintained on breathing inhalational treatments and will continue. Blood sugars well controlled and will continue with Accu-Cheks before meals and at bedtime and sliding scale as needed. Labs reviewed today showing a slightly low potassium of 3.8 and was given potassium supplementation. Sodium 131 which is improved and liver functions improving as AST is 117 and ALT is 167. Hemoglobin is stable at 7.3 today and recommended transfuses 7 or less. 08/04/2023 Patient is seen in follow-up today status post pacemaker placement continues in the ICU with multiple medical consultations following. Patient continues on 2 L via nasal cannula maintaining oxygen saturations above 95%. Chest x-ray today shows some interval improvement with residual patchy pulmonary edema remains with a trace a left pleural effusion. Patient continues to report a cough with congestion as well as periods of feeling like he is unable to catch his breath. Patient has been up and working with physical therapy and reports to feeling exhausted. Patient continues to have issues with no sleep at night and nursing staff has been working with the patient extensively on staying awake during the day for proper sleep at night. Patient is afebrile with no reports of worsening shortness of breath or chest pains. Patient has chest wall pain and is extrem david sensitive at the pacemaker site. Hemoglobin is stable at 8 today and other labs reviewed and within normal limits. Liver functions are trending down and AST is now 68 with an ALT of 117. Follow-up chest x-ray and labs are ordered. 08/05/2023 Patient is seen in follow-up today working on being transitioned out of the ICU to 3 S. Patient reports he receives some rest last night and feels much improved. Patient is being considered for discharge possibly this weekend. Patient is afebrile with no reports of chest pains or worsening shortness of breath. Patient reports his breathing is slightly improved today and has been weaning FiO2 as tolerated. Patient tolerating diet with no reports of nausea or vomiting. Blood sugars well controlled on current regimen. 08/06/2023 Patient is currently sitting in the chair. Awake alert and oriented x3. Currently on room air. Chest x-ray showed stable changes. Otherwise denies any complaints of chest pain. Using incentive spirometry. P atient has been afebrile. No nausea vomiting abdominal pain or diarrhea. WBC 8.1 hemoglobin 8.1 and platelets 345 MCV 101.6. Sodium 136 potassium 4.6 chloride 103 bicarb is 28 BUN 35 and creatinine 1.06 low iron and transferrin saturation. Patient is on iron supplementation. 08/07/2023 Patient is currently sitting in the bed. Awake alert and oriented x3. No complaints of chest pain or shortness of breath. No cough or sputum production. No headache or dizziness or lightheadedness. Tolerating oral diet. Patient is on room air. Laboratory data showed hemoglobin is stable. Patient is being continued on iron supplementation and also follow-up vitamin B-12 and folate levels due to macrocytosis. No fever no chills. No other acute overnight issues. Laboratory data reviewed. Hemoglobin 8.5. Possible discharge in next 24 to 48 hours. PT OT is on board. Review of systems: Constitutional: No reports of fatigue, no fever, or chills, reports he got some sleep last night Cardiovascular: No reports of chest pain or palpitations, reports chest wall discomfort when coughing Respiratory: No reports of worsening shortness of breath , reports occasional cough GI: No reports of nausea, vomiting, or diarrhea : No reports of dysuria or retention Neurovascular: reports of generalized weakness All medications have been reviewed PHYSICAL EXAMINATION: GENERAL: The patient is alert and oriented x3, Well developed, well nourished. HEENT: Pupils are round and equally reacting to light. EOMI. no scleral icterus. No conjunctival pallor. Normocephalic, atraumatic. No pharyngeal erythema. No thyromegaly. No facial deformity noted on exam CARDIOVASCULAR: S1 and S2 muffled PULMONARY: diminished breath sounds bilaterally with no wheezing or rhonchi noted. ABDOMEN: soft. Nontender on exam. obese. non-distended, normoactive bowel sounds. No palpable organomegaly. MUSCULOSKELETAL: No joint swelling or deformity. EXTREMITIES: No cyanosis, clubbing, or pedal edema. NEUROLOGICAL: Gross neurological examination did not reveal any focal deficits. Diffusely weak SKIN: No rashes. Assessment: Chest pain status post cardiac catheterization found to have severe triple-ve ssel disease status post three-vessel CABG with complex mitral valve repair Status post permanent pacemaker placement on 08/03/2023 Acute hypoxic respiratory failure, present on admission, multifactorial, secondary to severe triple vessel disease as well as acute CHF exacerbation with preserved EF Acute blood loss anemia and thrombocytopenia expected post surgery, hemoglobin stable Iron deficiency anemia NSTEMI, present on admission with elevated troponins COPD, not in exacerbation Coronary artery atherosclerosis noted on CTA 3.3 cm abdominal aortic aneurysm noted on CTA Aortic valve murmur consistent with aortic stenosis, moderate History of GERD Hyperlipidemia history Hypertension history Continued ongoing nicotine dependence, smokes about 2 packs per day Excessive caffeine intake daily GI prophylaxis DVT prophylaxis Full code Plan: Patient is continued in the ICU with multiple medical consultations following as patient is status post three-vessel CABG with complex mitral valve repair . Patient had a pacemaker placed . Patient to resume oral anticoagulant tomorrow and will follow-up on repeat labs. Continue on supplemental oxygen and wean as tolerated. Encourage incentive spirometer use at least 10 times every hour while awake Continue GI and DVT prophylaxis . Patient to continue with sliding scale with Accu-Cheks before meals and at bedtime and will add long-acting as needed if blood sugars start to elevate. Blood sugars have been well controlled on just sliding scale. Patient is not a diabetic. Encouraged increased activity as tolerated with cardiac rehab following Continue telemetry monitoring Admitting team discussing discharge this weekend. Patient is medically stable and we will continue to follow during hospitalization Objective - Vital Signs Vital signs: Vital Signs Temp 97.1 F L 08/07/23 17:07 Pulse 68 08/07/23 20:07 Resp 20 08/07/23 17:07 BP 113/55 08/07/23 17:07 Pulse Ox 96 08/07/23 17:07 FiO2 2 08/05/23 00:00 Intake & Output 08/07/23 08/07/23 08/08/23 06:59 18:59 06:59 Intake Total 20 455 Output Total 375 Balance 20 80 Weight 75 kg Intake: IV 20 20 Invasive Line 1 20 20 Oral 435 Output: Urine 375 Other: Voiding Method Urinal Urinal # Voids 1 # Bowel Movements 1 ABP, PAP, CO, CI - Last Documented Arterial Blood Pressure 103/56 Pulmonary Artery Pressure 52/14 Cardiac Output 4 Cardiac Index 2.2 - Labs CBC & Chem 7: 08/07/23 07:12 08/07/23 07:12 Labs: Abnormal Lab Results - Last 24 Hours (Table) 08/07/23 08/07/23 08/07/23 Range/Units 06:01 07:12 07:12 RBC 2.66 L (4.30-5.90) m/uL Hgb 8.5 L (13.0-17.5) gm/dL Hct 27.2 L (39.0-53.0) % MCV 102.2 H (80.0-100.0) fL RDW 20.7 H (11.5-15.5) % Sodium 135 L (137-145) mmol/L BUN 44 H (9-20) mg/dL POC Glucose (mg/dL) 113 H (70-110) mg/dL Total Bilirubin 1.5 H (0.2-1.3) mg/dL AST 99 H (17-59) U/L ALT 76 H (4-49) U/L Albumin 3.3 L (3.5-5.0) g/dL 08/07/23 08/07/23 Range/Units 17:03 19:49 RBC (4.30-5.90) m/uL Hgb (13.0-17.5) gm/dL Hct (39.0-53.0) % MCV (80.0-100.0) fL RDW (11.5-15.5) % Sodium (137-145) mmol/L BUN (9-20) mg/dL POC Glucose (mg/dL) 140 H 149 H (70-110) mg/dL Total Bilirubin (0.2-1.3) mg/dL AST (17-59) U/L ALT (4-49) U/L Albumin (3.5-5.0) g/dL
[2023-08-08 02:27] LABS: Glucose,Whole Blood 124 mg/dL (70-110)
[2023-08-08 04:18] VITALS: RESP 18
[2023-08-08 04:30] LABS: Anisocytosis Moderate; HCT 25.2 % (39.0-53.0); HGB 7.9 gm/dL (13.0-17.5); Hypochromasia Marked; MCH 31.8 pg (25.0-35.0); MCHC 31.4 g/dL (31.0-37.0); MCV 101.4 fL (80.0-100.0); Macrocytosis Moderate; Mean Platelet Volume 8.9; Platelet Count 356 k/uL (150-450); Poikilocytosis Marked; RBC 2.49 m/uL (4.30-5.90); RDW 21.5 % (11.5-15.5); WBC 9.5 k/uL (3.8-10.6)
[2023-08-08 04:44] LABS: African American GFR (CKD) 63 (>60 ml/min/1.73 sqM); Anion Gap 8 mmol/L; Blood Urea Nitrogen 49 mg/dL (9-20); Calcium 8.6 mg/dL (8.4-10.2); Carbon Dioxide 22 mmol/L (22-30); Chloride 101 mmol/L (98-107); Glucose 100 mg/dL (74-99); Non-African American GFR(CKD) 54 (>60 ml/min/1.73 sqM); Potassium 4.4 mmol/L (3.5-5.1); Sodium 131 mmol/L (137-145)
[2023-08-08] MEDS: INSULIN ASPART (NovoLOG) 100 UNIT/ML VIAL SQ SCH ×2 (06:38→11:40)
[2023-08-08 06:40] LABS: Glucose,Whole Blood 85 mg/dL (70-110)
[2023-08-08] MEDS ORDERED: SENNOSIDES-DOCUSATE SODIUM 1 EACH TAB PO PRN (07:12)
[2023-08-08] MEDS ORDERED: PANTOPRAZOLE 40 MG TABLET PO SCH (07:30)
--- NOTE | 2023-08-08 08:17 | P.PN ---
Subjective Progress Note Date: 08/08/23 Principal diagnosis: Severe diffuse calcific triple-vessel coronary artery disease with chronically occluded RCA and first OM, unstable angina, severe mitral valve regurgitation wi th prolapse of P2 with ruptured chord, moderate tricuspid valve regurgitation with severe pulmonary hypertension. History of hypertension, hyperlipidemia, abdominal aortic aneurysm with calcification of the posterior aspect of the ascending aorta, chronic ongoing tobacco dependence, moderate restrictive lung disease, GERD, depression POD #11 triple-vessel coronary artery bypass grafting using the left internal mammary artery to the left anterior descending artery, reverse saphenous vein graft from the aorta to the first obtuse marginal artery, reverse saphenous vein graft from the aorta to the posterior descending artery, complex mitral valve repair with construction of two pairs of NeoChords to P2 and posterior ring annuloplasty using a 34 mm AnnuloFlex ring, tricuspid valve repair using a 28 mm MC3 ring, exclusion of the left atrial appendage using a 40 mm AtriClip, endoscopic harvesting of the left greater saphenous vein, intraoperative graft flow measurements using the [employer] system, intraoperative transesophageal echocardiogram and epiaortic scanning Postoperative acute blood loss anemia and thrombocytopenia, expected given hemodilution and cardiopulmonary bypass pump Paroxysmal atrial fibrillation with symptomatic bradycardia/SSS even off beta yamile and amio, afib is common after open heart surgery and is somewhat expected, bradycardia/SSS w/o BB is unexpected, unknown cause, no clear reversible cause Elevated transaminases, likely medication induced POD #4 insertion dual chamber permanent pacemaker The patient was seen and examined this morning sitting up in a recliner on the cardiac stepdown unit in no acute distress eating breakfast. Currently contr olled atrial fibrillation, occasionally V paced. Patient states post surgical pain is controlled with current medication, denies shortness of breath. Chest x-ray, labs reviewed. Currently on room air with oxygen saturation in the 90s. Able to achieve 1000 mL on his incentive spirometry. Patient has ambulated in the hallway. Showered daily. Asking to go home. Objective - Vital Signs Vital signs: Vital Signs Temp 98.1 F 08/08/23 04:00 Pulse 63 08/08/23 04:00 Resp 18 08/08/23 04:00 BP 118/73 08/08/23 04:00 Pulse Ox 94 L 08/08/23 04:00 FiO2 2 08/05/23 00:00 Intake & Output 08/07/23 08/08/23 08/08/23 18:59 06:59 18:59 Intake Total 455 20 Output Total 375 300 Balance 80 -280 Weight 72.8 kg Intake: IV 20 20 Invasive Line 1 20 20 Oral 435 Output: Urine 375 300 Other: Voiding Method Urinal Urinal # Voids 1 # Bowel Movements 1 ABP, PAP, CO, CI - Last Documented Arterial Blood Pressure 103/56 Pulmonary Artery Pressure 52/14 Cardiac Output 4 Cardiac Index 2.2 - Exam CONSTITUTIONAL: Cooperative, no acute distress RESPIRATORY: Lungs sounds diminished bilaterally. Respirations even, nonlabored. Currently on room air with oxygen saturation 94%. Able to achieve 1000 mL on incentive spirometry. Strong loose cough. CARDIOVASCULAR: S1, S2 present. Irregular rate and rhythm, controlled atrial fibrillation, occasionally V paced. Sternum stable. Palpable peripheral pulses bilaterally. No edema present. No calf pain or tenderness noted. Heart hugger, antiembolism stockings, SCDs present. GASTROINTESTINAL: Abdomen soft, nontender, nondistended. Active bowel sounds present 4 quadrants. Tolerating diet. Positive bowel movement 08/07/23 GENITOURINARY: Continues to void clear yellow urine although not always captured with urinal INTEGUMENTARY: Skin is warm and dry with evidence of good perfusion. Anterior chest incision well approximated. Left lower extremity EVH site well approximated. Left ant chest wall pacer site covered with dry intact dressing NEUROLOGIC: Cranial nerves II through XII intact MUSKULOSKELETAL: Able to move all extremities, strength equal bilaterally, gait normal PSYCHIATRIC: Alert and oriented to person place and time, intact judgment and insight - Allied health notes Allied health notes reviewed: nursing - Labs CBC & Chem 7: 08/08/23 04:00 08/08/23 04:00 Labs: Abnormal Lab Results - Last 24 Hours (Table) 08/07/23 08/07/23 08/07/23 Range/Units 07:12 07:12 17:03 RBC 2.66 L (4.30-5.90) m/uL Hgb 8.5 L (13.0-17.5) gm/dL Hct 27.2 L (39.0-53.0) % MCV 102.2 H (80.0-100.0) fL RDW 20.7 H (11.5-15.5) % Sodium 135 L (137-145) mmol/L BUN 44 H (9-20) mg/dL Creatinine (0.66-1.25) mg/dL Glucose (74-99) mg/dL POC Glucose (mg/dL) 140 H (70-110) mg/dL Total Bilirubin 1.5 H (0.2-1.3) mg/dL AST 99 H (17-59) U/L ALT 76 H (4-49) U/L Albumin 3.3 L (3.5-5.0) g/dL 08/07/23 08/08/23 08/08/23 Range/Units 19:49 02:25 04:00 RBC 2.49 L (4.30-5.90) m/uL Hgb 7.9 L (13.0-17.5) gm/dL Hct 25.2 L (39.0-53.0) % MCV 101.4 H (80.0-100.0) fL RDW 21.5 H (11.5-15.5) % Sodium (137-145) mmol/L BUN (9-20) mg/dL Creatinine (0.66-1.25) mg/dL Glucose (74-99) mg/dL POC Glucose (mg/dL) 149 H 124 H (70-110) mg/dL Total Bilirubin (0.2-1.3) mg/dL AST (17-59) U/L ALT (4-49) U/L Albumin (3.5-5.0) g/dL 08/08/23 Range/Units 04:00 RBC (4.30-5.90) m/uL Hgb (13.0-17.5) gm/dL Hct (39.0-53.0) % MCV (80.0-100.0) fL RDW (11.5-15.5) % Sodium 131 L (137-145) mmol/L BUN 49 H (9-20) mg/dL Creatinine 1.28 H (0.66-1.25) mg/dL Glucose 100 H (74-99) mg/dL POC Glucose (mg/dL) (70-110) mg/dL Total Bilirubin (0.2-1.3) mg/dL AST (17-59) U/L ALT (4-49) U/L Albumin (3.5-5.0) g/dL - Imaging and Cardiology Chest x-ray: image reviewed Assessment and Plan Assessment: Severe diffuse calcific triple-vessel coronary artery disease with chronically occluded RCA and first OM, unstable angina, status post 3V CABG Severe mitral valve regurgitation with prolapse of P2 with ruptured chord, status post complex mitral valve repair Moderate tricuspid valve regurgitation with severe pulmonary hypertension, status post tricuspid valve repair History of hypertension Hyperlipidemia, treated, cholesterol 121, LDL 60.5 Abdominal aortic aneurysm with calcification of the posterior aspect of the ascending aorta Chronic ongoing tobacco dependence Moderate restrictive lung disease, preoperative FEV1 54% of predicted GERD Depression Postoperative acute blood loss anemia and thrombocytopenia, expected Paroxysmal atrial fibrillation, bradycardia/SSS, S/P permanent pacemaker Elevated transaminases, resolving JOSE, likely from overdiuresis Plan: Continue to optimize medical management with low dose aspirin, statin, beta b locker. Continue low dose ARB for afterload reduction with hold parameters. Recommend increasing pacemaker rate to 70 BPM Continue Amiodarone, Eliquis Encourage incentive spirometry 10 x every hour while awake. Bronchodilators per pulmonology Increase activity as tolerated. PT/OT/cardiac rehab consulted Will monitor daily labs and CXR. Electrolyte replacement per protocol. No lasix today GI/DVT prophylaxis Pain control with current medication regimen Insulin management per internal medicine, patient is not diabetic with preoperative HgbA1c 5.8%, but needs tight blood sugar control to prevent infection Continue to record strict accurate I/Os Daily weights Smoking cessation counseling and education provided Will get echo this morning to eval LV Discharge planning in progress, anticipate discharge to home with home care today More recommendations to follow based on patient's progress
[2023-08-08] MEDS: IPRATROPIUM-ALBUTEROL 3 ML NEB INHALATION SCH ×3 (08:18→15:47)
--- NOTE | 2023-08-08 08:55 | XR ---
EXAMINATION TYPE: XR chest 2V DATE OF EXAM: 08/08/2023 6:22 AM CLINICAL INDICATION:Male, 73 years old with history of post cardiac surgery; COMPARISON: Chest radiographs from 08/07/2023 TECHNIQUE: XR chest 2V Frontal and lateral views of the chest. FINDINGS: Lungs/Pleura: Scattered airspace opacities appear are unchanged. No pneumothorax. There is trace left pleural effusion. Pulmonary vascularity: Pulmonary vascular congestion. Heart/mediastinum: Cardiomediastinal silhouette is unremarkable. Two lead cardiac conduction device o verlying the left hemithorax with lead tips projecting over the right ventricle and right atrium. Lef t atrial appendage occlusion device is present. Suspected mitral valve device. Musculoskeletal: No acute osseous pathology. Midline sternotomy wires are noted. Other findings: None Lines/Tubes: IMPRESSION: Stable postsurgical exam with mild pulmonary edema and trace left pleural effusion.
[2023-08-08] MEDS: NICOTINE 14MG/24HR PATCH TRANSDERM SCH (09:24)
[2023-08-08] MEDS: AMIODARONE 200 MG TAB PO SCH (09:24)
[2023-08-08] MEDS: ASCORBIC ACID 500 MG TAB PO SCH (09:25)
[2023-08-08] MEDS: ASPIRIN 81 MG PO SCH (09:25)
[2023-08-08] MEDS: CITALOPRAM HYDROBROMIDE 20 MG TAB PO SCH (09:25)
[2023-08-08] MEDS: CHOLECALCIFEROL 25 MCG (1000 IU) TABLET PO SCH (09:25)
[2023-08-08] MEDS: FERROUS SULFATE 325 MG TAB PO SCH (09:25)
[2023-08-08] MEDS: APIXABAN 5 MG TAB PO SCH (09:25)
[2023-08-08] MEDS: METOPROLOL TARTRATE 12.5 MG TAB PO SCH (09:25)
--- NOTE | 2023-08-08 11:15 | P.PN ---
Subjective HISTORY OF PRESENT ILLNESS: Patient is status post CABG 3 vessels , complex mitral valve repair, and tricuspid valve repair. Patient examined this morning. Patient is sitting up in the chair. Patient denies chest pain or pressure. He denies shortness of breath. Vital signs are stable. He is hoping to be discharged home today. PHYSICAL EXAM: VITAL SIGNS: Reviewed. GENERAL: Well-developed in no acute distress. NECK: Supple. No JVD or thyromegaly LUNGS: Respirations even and unlabored. Lungs essentially clear to auscultation bilaterally. HEART: Regular rate and rhythm. S1 and S2 heard. Systolic murmur noted. EXTREMITIES: Normal range of motion. No clubbing or cyanosis. Peripheral puls es intact. No lower extremity edema ASSESSMENT: Non-STEMI Severe triple vessel coronary artery disease, status post CABG 3 vessels Severe mitral valve regurgitation, status post complex mitral valve repair Moderate tricuspid regurgitation, status post tricuspid valve repair Sick sinus syndrome, status post pacemaker implantation Hypertension Hyperlipidemia Abdominal aortic aneurysm Nicotine dependence PLAN: Continue postoperative management per cardiothoracic surgery Increase activity as tolerated Encourage use of incentive spirometer Continue current cardiac medications Discharge per CT surgery Further recommendations pending patient's course Nurse practitioner note has been reviewed by physician. Signing provider agrees with the documented findings, assessment, and plan of care. Objective - Vital Signs Vital signs: Vital Signs Temp 98.1 F 08/08/23 08:00 Pulse 72 08/08/23 08:27 Resp 18 08/08/23 08:00 BP 124/70 08/08/23 08:00 Pulse Ox 95 08/08/23 08:00 FiO2 2 08/05/23 00:00 Intake & Output 08/07/23 08/08/23 08/08/23 18:59 06:59 18:59 Intake Total 455 20 10 Output Total 375 300 Balance 80 -280 10 Weight 72.8 kg Intake: IV 20 20 10 Invasive Line 1 20 20 10 Oral 435 Output: Urine 375 300 Other: Voiding Method Urinal Urinal # Voids 1 # Bowel Movements 1 ABP, PAP, CO, CI - Last Documented Arterial Blood Pressure 103/56 Pulmonary Artery Pressure 52/14 Cardiac Output 4 Cardiac Index 2.2 - Labs CBC & Chem 7: 08/08/23 04:00 08/08/23 04:00 Labs: Abnormal Lab Results - Last 24 Hours (Table) 08/07/23 08/07/23 08/08/23 Range/Units 17:03 19:49 02:25 RBC (4.30-5.90) m/uL Hgb (13.0-17.5) gm/dL Hct (39.0-53.0) % MCV (80.0-100.0) fL RDW (11.5-15.5) % Sodium (137-145) mmol/L BUN (9-20) mg/dL Creatinine (0.66-1.25) mg/dL Glucose (74-99) mg/dL POC Glucose (mg/dL) 140 H 149 H 124 H (70-110) mg/dL 08/08/23 08/08/23 Range/Units 04:00 04:00 RBC 2.49 L (4.30-5.90) m/uL Hgb 7.9 L (13.0-17.5) gm/dL Hct 25.2 L (39.0-53.0) % MCV 101.4 H (80.0-100.0) fL RDW 21.5 H (11.5-15.5) % Sodium 131 L (137-145) mmol/L BUN 49 H (9-20) mg/dL Creatinine 1.28 H (0.66-1.25) mg/dL Glucose 100 H (74-99) mg/dL POC Glucose (mg/dL) (70-110) mg/dL
[2023-08-08] MEDS: LOSARTAN 25 MG TAB PO SCH (11:40)
[2023-08-08] MEDS: ALPRAZolam 0.25 MG TAB PO PRN (11:40)
[2023-08-08 11:43] VITALS: BP 97/59; TEMP 98
[2023-08-08 11:47] LABS: Glucose,Whole Blood 126 mg/dL (70-110)
--- NOTE | 2023-08-08 11:50 | P.PN ---
Subjective Progress Note Date: 08/08/23 I am seeing this patient in new consultation today 07/21/2023 on the cardiac stepdown unit after being found to have multivessel coronary artery disease and severe mitral regurgitation, and is currently undergoing preoperative workup for possible open heart surgery. Patient is a 73-year-old white male with past medical history significant for hypertension, hyperlipidemia, known existing heart murmur, GERD, and chronic ongoing tobacco dependence smoking approximately 1 pack per day. Denies any history of pulmonary disease including COPD or asthma. He does not use any inhalers at home. His primary care provider is Dr. Holloway. Patient presented to the emergency room back on July 19 planing of shortness of breath, chest tightness, and lightheadedness that started approximately 2-3 days before arrival. He had a minimal nonproductive cough, but is not much different from his baseline. He denies any recent fever, chills, myalgias, hemoptysis, nausea, vomiting, diarrhea, heart palpitations, lower extremity swelling, presyncope or syncope. On arrival to the emergency room, a chest x-ray was completed in the emergency department which showed interstitial infiltrates, mid and lower lung zones bilaterally could reflect interstitial edema versus interstitial pneumonia. For further evaluation a CTA of the chest was completed for PE protocol which demonstrated no diagnostic evidence of pu lmonary embolism, COPD, pulmonary fibrosis, correlate for mild CHF, dense coronary artery atherosclerosis, incidental note of an abdominal aortic aneurysm measuring 3.3 cm, nonspecific mediastinal and hilar lymphadenopathy and prominent pulmonary artery which was possibly associated with pulmonary artery hypertension. A 12-lead EKG was completed which showed normal sinus rhythm at a rate of 66 bpm and a right bundle branch block. Troponins mildly elevated at 0.043. NT proBNP not particularly elevated at 546. Most recent CBC shows a WBC count of 11, hemoglobin 13.7, hematocrit 39.9, platelets 178. Most recent BMP shows sodium 136, potassium 3.9, chloride 103, serum bicarb 24, BUN 20, crea tinine 0.85, glucose 99. Patient was taken for heart catheterization yesterday which showed severe triple-vessel disease, severe mitral regurgitation, and mild to moderate aortic stenosis. Cardiothoracic services were consulted and recommendation for open heart surgery. Patient is currently sitting at the edge of the bed, on 3 L/m nasal cannula, in no acute distress. He is unsure if he wants to proceed with surgical revascularization. He is okay with proceeding with the preoperative workup. Bedside spirometry is scheduled. The patient is seen today 07/22/2023 in follow-up on the selective care unit. He is currently sitting up in bed. Awake and alert in no acute distress. He is maintaining O2 saturations in the 90s on 3 L/m per nasal cannula. He is pulling approximately 1200 ML's on his incentive spirometer. He continues to be worked up for possible bypass surgery along with mitral valve and tricuspid valve repairs. FEV1 value was 1.26 or 54% of predicted. NicoDerm patch remains in place. The patient is seen today 07/23/2023 in follow-up on the selective care unit. He is currently sitting up in a chair at the bedside. Awake and alert in no acute distress. Denies any worsening shortness of breath cough or congestion. Denies any chest pain. He is maintaining good O2 saturations up to 97% on room air. Afebrile. Sodium 135. Potassium 3.7. Bicarb 27. BUN 22. Creatinine 0.90. NicoDerm patch in place. The patient is seen today 07/24/2023 in follow-up on the selective care unit. Awake and alert in no acute distress. Sitting in bed. Denies any chest pain. No palpitations. No worsening shortness of breath or cough. He did have a nightmare and some confusion last evening. Oriented 3 today. Maintaining O2 saturations in the 90s on 2 L/m per nasal cannula. He is afebrile. Hemodynamically stable. NicoDerm patch in place. The patient is seen today 07/25/2023 in follow-up on the selective care unit. He is ambulating in his room. Awake and alert in no acute distress. Denies any chest pain. Denies any worsening shortness of breath, cough or congestion. He is maintaining good O2 saturations in the 90s on 2 L/m per nasal cannula. Afebrile. Hemodynamically stable. Sodium 134. Potassium 4.3. Bicarb 28. BUN 19. Creatinine 0.87. Glucose 113. NicoDerm patch remains in place. Progress note dated 07/26/2023. The patient is seen today in room 356. The patient is scheduled to have bypass grafting, on July 27. Currently he is on 2 L of oxygen. No IV fluids. He is sitting at the bedside. White count 5.4, hemoglobin 10.4, hematocrit 30.9, with a normal platelet count. Sodium 132, potassium 4.3, chlorides 98, CO2 29, BUN 21, creatinine 0.85. Chest x-ray shows changes of COPD, with mild interstitial pulmonary edema. Progress note dated 07/27/2023. The patient was seen this morning in room 356. The patient is scheduled to have open-heart surgery today, 07/27/2023. He is currently on 2 L of oxygen. Lab data today includes a glucose of 121. Lab data from July 26 have been reviewed. X-rays, medications, and other information has also been reviewed. Previous chest x-ray shows changes of COPD, with mild interstitial pulmonary edema. Progress note dated 07/28/2023. The patient is postop day #1, status post three-vessel bypass grafting, mitral valve repair, tricuspid valve repair, and exclusion of the left atrial appendage. The patient's currently been extubated to 4 L of oxygen. He was extubated on July 27, at nighttime. He is getting saline at 50 mL an hour, and an insulin drip at 2.5 units an hour. The patient is very anxious and received some benzodiazepine. White count 6.9, hemoglobin 7.2, hematocrit 20.9, and a platelet count of 50,000. Sodium 135, potassium 4.6, chlorides 105, CO2 26, BUN 23, and creatinine 0.94. Chest x-ray shows some mild pulmonary vascular congestion, and some basilar atelectasis. The endotracheal tube has been removed. Progress note dated 07/29/2023. This patient is seen today in room 266. He's postoperative day #2, status post three-vessel bypass grafting, mitral and tricuspid valve repair, and exclusion of the left atrial appendage. Patient is currently on 4 L of oxygen. He is getting saline at 20 mL an hour. He will get 1 unit of packed red blood cells today. White count is 9, 11 6.9, hematocrit 20.4, and platelet count 82,000. Sodium 132, potassium 4.3, chlorides 104, CO2 25, BUN 23, and creatinine 0.82. Albumin is 2.7. Chest x-ray shows some airspace opacities at the right lung base. There is also some infiltrate or atelectasis at the left lung base. Progress note dated 07/30/2023. The patient is again seen today in room 266. He's postoperative day #3, status post three-vessel bypass grafting, mitral and tricuspid valve repair, and exclusion of left atrial appendage. Currently, the patient's sitting upright in the chair. He is on 2 L of oxygen. He continues on amiodarone at 0.5 mg/m. He is also getting saline at 20 mL an hour. According to the nurse, he had a pretty stable and uneventful night. White count 8.1, he will been 7.7, hematocrit 22.1, and platelet count 92,000. Sodium 130, potassium 4.5, c hlorides 102, CO2 26, BUN 24, and creatinine 0.74. AST is 248. ALT is 79. Chest x-ray in my opinion show some cardiomegaly, and mild increased vascular congestion. Progress note dated 07/31/2023. 73-year-old male, seen in room 266. He has postoperative day #4, status post three-vessel bypass grafting, mitral repair, tricuspid valve repair, and exclusion of left atrial appendage. The patient is currently on 2 L of oxygen. He is getting saline at 20 mL an hour. He sitting in a chair next to his bed. He is getting about 750 mL on his incentive spirometer. White count of 6.3, hemoglobin 7.2, hematocrit 21.4, with platelet count of 120,000. Sodium 128, potassium 4, chloride 98, CO2 24, BUN 29, and creatinine 0.81. AST is 240, with an ALT of 127. Chest x-ray show some bibasilar atelectasis, tiny effusions, some postoperative changes. On today's evaluation of 08/01/2023, the patient is doing well on 2 L of oxygen by nasal cannula. His postoperative day #4. Hemodynamically stable. Cardiac rhythm is paced with an underlying junctional rhythm.. Using incentive spirometer. The patient had a follow-up chest x-ray today that shows cardiomegaly. There is some pulmonary vascular congestion and he was given 20 mg of IV Lasix today. He still has some patchy bilateral pulmonary infiltrates more so in the right upper lobe. His white cell count is at 9.7, hemoglobin is at 8.4, and sodium is at 129, potassium is at 4, BUN is at 28 with a creatinine of 0.8. LFTs are slightly abnormal with an AST of 431 and ALT of 231. Lipitor was accordingly placed on hold. He remains on aspirin. He remains on Plavix. He remains off metoprolol because of his underlying junctional cardiac rhythm. Anticoagulations with Arixtra 2.5 mg subcu once a day. No other significant events overnight. Neurologically intact. Communicating. Tolerating his diet. He had adequate bowel movements. Noted the patient had severe diffuse calcified triple-vessel coronary artery disease with severe mitral regurgitation and prolapse of P2 with a ruptured cord and tricuspid regurgitation with severe pulmonary hypertension. He underwent three-vessel bypass surgery and mitral valve repair and tricuspid valve repair. On today's evaluation of 08/02/2023, the patient is postop day #5. His pravin vering from his cardiac surgery. His underlying cardiac rhythm is A. fib with bradycardia and occasional junctional rhythm. He has a pacemaker as a backup at the rate of 50. He is not taking any beta blockers at this point in time. His being contemplated for a pacemaker insertion. Meanwhile, the patient is currently on 2 L of oxygen by nasal cannula. Is oxygen saturations 95%. Hemodynamically stable. Hemoglobin is at 7.8 slightly lower compared to yesterday. Sodium is at 130, BUN is at 30 with a creatinine of 1.09. Chest x- ray is essentially unchanged. On today's evaluation of 08/03/2023, the patient is currently postop day #6, the patient remains on 2 L of oxygen by nasal cannula. He has a backup pacing at the rate of 50 and the patient has going to undergo a pacemaker insertion today. With activity, his cardiac rhythm is in nature fibrillation and sometimes goes up in the mid 70s. While at rest, he seems to be more so bradycardic in place. He is still using the incentive spirometer. Is falling approximately 1000. Chest x-ray shows small bilateral pleural effusions. No evidence of any pneumothorax and there is postthoracotomy changes. He remains on 2 L. He is a mbulating. He is a bit nervous and anxious. His surgical 1 site is dry clean and intact. He has a hemoglobin of 7.3, white cell count of 6.8, B is a 37 with a creatinine of 1.1. LFTs are improving. Sodium levels of 131. Not receiving any beta blockers. He is on aspirin and Plavix. He is also on Cozaar for blood pressure control. Blood pressures under adequate control for now. No signific ant hypertension or hypotension. No nausea. No emesis. No other significant events overnight. Neurologically intact and moving all 4 extremities without any limitation. On 08/04/2023, the patient is postop day #7. The patient underwent a dual- chamber pacemaker insertion yesterday as the patient was having sick sinus syndrome with atrial fibrillation and heart rate that were quite low and occ asional junctional beats. Based on that, a dual-chamber pacemaker was inserted without any complications. The patient's current cardiac rhythm. Beta blockers were started on him and currently is on metoprolol 12.5 mg by mouth twice a day. He remains on amiodarone 200 mg by mouth twice a day. Anticoagulation is also to be started today. No other complaints otherwise for now. He is on oxygen at 2 L with a pulse ox of 97%. His blood work shows a WBC count of 7.3, hemoglobin of 8 and a platelet count of 225. BUN is at 31 with a creatinine of 0.8. Sodium level is at 133. He is afebrile. He is using the incentive spirometer. He is ambulating. He is tolerating his diet. No issues with pain. Using the incentive spirometer and reaching 1000. On 08/05/2023, patient is postop day #8. The patient is currently on room air oxygen. Pacemaker was inserted successfully. Chest x-ray from today shows mild pulmonary vascular congestion. Otherwise no other topical to the pacemaker inse rtion and the patient has ventricular pacing at rate of 60 and occasionally his heart rate is above 60 with atrial fibrillation. He remains on beta blockers. He remains on anticoagulation with Eliquis and this was started. He is using the incentive spirometer. He is ambulating. His sternal wound is dry and clean. No syncope. No focal neurological deficits. He has produced adequate amount of urine output. He is using the incentive spirometer. No other significant events over the past 24 hours. 08/06/2023, the patient is postop day #9. The patient doing extremely well. He is ambulating. Is on room air oxygen. He is ventricularly paced for now. Hemoglobin is at 8.1, BUN is at 35 with a creatinine of 1.06 and a sodium level is at 136. The patient has no specific complaints. He is ambulating. He is using the senna spirometer. He is afebrile. He is condition is essentially stable. He was moved out of the intensive care unit yesterday he is currently on a cardiac floor. 72,023, the patient is postop day #10. Ambulating. Currently on room air oxygen. Tolerating diet. No respiratory distress. Using incentive spirometer. The labs are all stable, hemoglobin is 8.5, white cell cause of 9.5, BUN is at 44 with a creatinine of 1.2 and his sodium levels of 135. Glucose at 103. The patient is seen today 08/08/2023 in follow-up on the selective care unit. Postoperative day #11, status post three-vessel bypass grafting, mitral repair, tricuspid valve repair, and exclusion of left atrial appendage. He is postoperative day #5 of a permanent pacemaker implantation. He is currently sitting up in a chair at the bedside. Awake and alert in no acute distress. M aintaining good O2 saturations in the 90s on room air. Afebrile. Hemodynamically stable. Working well with the incentive spirometer. Chest x- ray reveals mild pulmonary edema and trace left pleural effusion. He is status post 2 units of packed red blood cells this admission. Current hemoglobin 7.9. White count 9.5. Platelets 356. Sodium 131. Potassium 4.4. Bicarb 22. BUN 49. Creatinine 1.28. Glucose 100. He remains on bronchodilators. Anticoagulated with Eliquis. NicoDerm patch in place. Follow-up echocardiogram pending. Objective - Vital Signs Vital signs: Vital Signs Temp 98.1 F 08/08/23 08:00 Pulse 76 08/08/23 11:21 Resp 18 08/08/23 08:00 BP 124/70 08/08/23 08:00 Pulse Ox 95 08/08/23 08:00 FiO2 2 08/05/23 00:00 Intake & Output 08/07/23 08/08/23 08/08/23 18:59 06:59 18:59 Intake Total 455 20 10 Output Total 375 300 Balance 80 -280 10 Weight 72.8 kg Intake: IV 20 20 10 Invasive Line 1 20 20 10 Oral 435 Output: Urine 375 300 Other: Voiding Method Urinal Urinal # Voids 1 # Bowel Movements 1 ABP, PAP, CO, CI - Last Documented Arterial Blood Pressure 103/56 Pulmonary Artery Pressure 52/14 Cardiac Output 4 Cardiac Index 2.2 - Exam GENERAL EXAM: Alert, oriented 73-year-old male, sitting up in a chair, on room air, comfortable in no apparent distress. HEAD: Normocephalic and atraumatic EYES: Normal reaction of pupils, equal size. NOSE: Clear with pink turbinates. THROAT: No erythema or exudates. NECK: No masses, no JVD. CHEST: Sternum stable. Heart Hugger in place. Left subclavian pacemaker in place. LUNGS: Equal air entry without crackles, wheeze, rhonchi or dullness. No conversational dyspnea. CVS: S1 and S2 normal with regular rhythm. No extra heart sounds ABDOMEN: No hepatosplenomegaly, active bowel sounds, no guarding or rigidity. SPINE: No scoliosis or deformity SKIN: No rashes CENTRAL NERVOUS SYSTEM: No focal deficits, tone is normal in all 4 extremities. EXTREMITIES: There is no peripheral edema, clubbing, or cyanosis. Peripheral pulses are intact. - Labs CBC & Chem 7: 08/08/23 04:00 08/08/23 04:00 Labs: Abnormal Lab Results - Last 24 Hours (Table) 08/07/23 08/07/23 08/08/23 Range/Units 17:03 19:49 02:25 RBC (4.30-5.90) m/uL Hgb (13.0-17.5) gm/dL Hct (39.0-53.0) % MCV (80.0-100.0) fL RDW (11.5-15.5) % Sodium (137-145) mmol/L BUN (9-20) mg/dL Creatinine (0.66-1.25) mg/dL Glucose (74-99) mg/dL POC Glucose (mg/dL) 140 H 149 H 124 H (70-110) mg/dL 08/08/23 08/08/23 Range/Units 04:00 04:00 RBC 2.49 L (4.30-5.90) m/uL Hgb 7.9 L (13.0-17.5) gm/dL Hct 25.2 L (39.0-53.0) % MCV 101.4 H (80.0-100.0) fL RDW 21.5 H (11.5-15.5) % Sodium 131 L (137-145) mmol/L BUN 49 H (9-20) mg/dL Creatinine 1.28 H (0.66-1.25) mg/dL Glucose 100 H (74-99) mg/dL POC Glucose (mg/dL) (70-110) mg/dL Assessment and Plan Assessment: Postop day #11 status post three-vessel bypass grafting, mitral valve repair, tricuspid valve repair, and exclusion of the left atrial appendage. Routine postoperative ventilator management, with extubation, on July 27. The patient is currently on room air. All of the chest tubes are removed. Sick sinus syndrome along with atrial fibrillation/Junctional cardiac rhythm and patient is post pacemaker insertion the patient has a dual-chamber pacemaker in place. Post operative day #5. The patient has ventricular pacing at the rate of 60 with occasional A. fib rhythm. Benign essential hypertension Hyperlipidemia Abdominal aortic aneurysm, measuring 3.3 cm incidentally found on chest CTA GERD Chronic and ongoing nicotine dependence Plan: The patient was seen and evaluated Chest x-ray, medications and labs reviewed Follow-up echocardiogram pending Working well with the incentive spirometer Again educated regarding the importance of complete smoking cessation NicoDerm patch in place Possibly home later today per CT services Follow-up in our office in 1 week I have personally seen and examined the patient, performed the documentation and the assessment and plan as written. Number of minutes spent on the visit: 10.
--- NOTE | 2023-08-08 16:09 | CA ---
Transthoracic Echo Report Name: Francisco Lucio Age: 73 Gender: M : 1950 Exam Date: 08/08/2023 07:57 Exam Location: [facility] Ht (in): 64 Wt (lb): 164 Ordering Physician: Carmen Loya Attending/Referring Phys: [id number], Vincenzo [employer] [place] Radha Delacruz RDCS Procedure CPT: Indications: eval LV Cardiac Hx: Technical Quality: Fair Contrast 1: Total Dose (mL): Contrast 2: Total Dose (mL): MEASUREMENTS (Male / Female) Normal Values 2D ECHO LV Diastolic Diameter PLAX 4.0 cm 4.2 - 5.9 / 3.9 - 5.3 cm LV Systolic Diameter PLAX 3.0 cm IVS Diastolic Thickness 2.1 cm 0.6 - 1.0 / 0.6 - 0.9 cm LVPW Diastolic Thickness 1.6 cm 0.6 - 1.0 / 0.6 - 0.9 cm LV Relative Wall Thickness 0.9 LA Volume 63.6 cm??? 18 - 58 / 22 - 52 cm??? M-MODE Aortic Root Diameter MM 3.1 cm LA Systolic Diameter MM 5.6 cm LA Ao Ratio MM 1.8 AV Cusp Separation MM 1.2 cm DOPPLER AV Peak Velocity 213.7 cm/s AV Peak Gradient 18.3 mmHg AV Mean Velocity 145.7 cm/s AV Mean Gradient 9.8 mmHg AV Velocity Time Integral 36.0 cm LVOT Peak Velocity 126.5 cm/s LVOT Peak Gradient 6.4 mmHg LVOT Velocity Time Integral 30.2 cm MV Peak Velocity 152.6 cm/s MV Peak Gradient 9.3 mmHg MV Mean Velocity 101.8 cm/s MV Mean Gradient 4.8 mmHg MV Velocity Time Integral 44.2 cm TR Peak Velocity 178.7 cm/s TR Peak Gradient 12.8 mmHg Right Ventricular Systolic Press 17.8 mmHg FINDINGS Left Ventricle Severely increased left ventricular wall thickness. Left ventricular cavity size normal. Normal left ventricular systolic function with no obvious regional wall motion abnormalities. Abnormal (paradoxical) septal motion consistent with postoperative state. Left ventricular ejection fraction is estimated at 50-55 %. Right Ventricle Right ventricle not well visualized. Right ventricular systolic pressure within normal limits. Right Atrium Right atrium not well visualized. Left Atrium Mildly increased left atrial volume. Mildly increased left atrial area. Mitral Valve S/P MV repair. No mitral regurgitation. Aortic Valve Trileaflet aortic valve. Mild aortic stenosis with a peak gradient of 18 mmHg and a mean gradient of 10 mmHg. Tricuspid Valve S/P TV repair. Trace to mild tricuspid regurgitation. Pulmonic Valve Trace pulmonic regurgitation. Pericardium Minimal pericardial effusion (normal variant). Aorta Normal size aortic root and proximal ascending aorta. CONCLUSIONS Left ventricular ejection fraction 50-55% Severe increased left ventricular wall thickness Mildly dilated left atrium Status post mitral valve repair, no significant mitral regurgitation Mild aortic stenosis Trace to mild tricuspid regurgitation Previewed by: Dr. Sawyer Rosario DO (Electronically Signed) Final Date: 08 August 2023 16:09
[2023-08-08 16:19] VITALS: PULSE 75
--- NOTE | 2023-08-08 16:22 | P.DS ---
Providers Date of admission: 07/19/23 15:44 Expected date of discharge: 08/08/23 Attending physician: Pura Mcintosh Consults: 07/19/23 15:50 Consult Physician Urgent Consulting Provider: Kwesi Berg Consult Reason/Comments: chest pain, pulmonary edema Do you want consulting provider notified?: Yes 07/20/23 14:40 Consult Physician Routine Consulting Provider: Pura Mcintosh Consult Reason/Comments: CABG, MVR Do you want consulting provider notified?: Already Contacted 07/20/23 14:41 Consult Physician Routine Consulting Provider: Gomez Montes De Oca Consult Reason/Comments: copd Do you want consulting provider notified?: Yes 07/21/23 17:52 Consult Physician Routine Consulting Provider: Ciarra Foster Consult Reason/Comments: Pre op cardiac surgery clearance Do you want consulting provider notified?: Yes 07/26/23 08:00 Consult to Anesthesia Routine Consulting Provider: Anesthesia,Services Consult Reason/Comments: Cardiac Surgery Pre-Op 07/27/23 15:45 Consult Physician Routine Consulting Provider: Marin Grayson Consult Reason/Comments: med mgmt Do you want consulting provider notified?: Already Contacted Primary care physician: [facility] Course: FINAL DIAGNOSIS: 1. Severe diffuse calcific triple-vessel coronary artery disease with chronically occluded RCA and first OM, unstable angina 2. Severe mitral valve regurgitation with prolapse of P2 with ruptured chord 3. Moderate tricuspid valve regurgitation with severe pulmonary hypertension 4. History of hypertension 5. Hyperlipidemia, treated, cholesterol 121, LDL 60.5 6. Abdominal aortic aneurysm with calcification of the posterior aspect of the ascending aorta 7. Chronic ongoing tobacco dependence 8. Moderate restrictive lung disease, preoperative FEV 1 54% of predicted 9. GERD 10. Depression 11. Postoperative acute blood loss anemia and thrombocytopenia 12. Paroxysmal atrial fibrillation, bradycardia/SSS 13. Elevated transaminases 14. JOSE PRINCIPAL PROCEDURE: 1. Triple-vessel coronary artery bypass grafting using the left internal mammary artery tot the left anterior descending artery, reverse saphenous vein graft from the aorta to the first obtuse marginal artery, reverse saphenous vein graft from the aorta to the posterior descending artery 2. Complex mitral valve repair with construction of two pairs of NeoChords to P 2 and posterior ring annuloplasty using a 34 mm AnnuloFlex ring 3. Tricuspid valve repair using a 28 mm MC3 ring 4. Ecxclusion of the left atrial appendage using a 40 mm AtriClip 5. Endoscopic harvesting of the left greater saphenous vein, intraoperative graft flow measurements using the Right90 system 6. Intraoperative transesophageal echocardiogram and epiaortic scanning 7. Insertion of dual chamber permanent pacemaker HISTORY OF PRESENT ILLNESS: This is a 73-year-old gentleman who follows outpatient with Dr. Holloway for primary care. He presented to [facility] at the end of June with complaints of shortness of breath, chest tightness, lightheadedness. EKG demonstrated sinus rhythm with a right bundle branch block and left axis deviation. Troponins were drawn and were negative. Transthoracic echocardiogram was completed demonstrating normal left ventricular size and function with EF 55-60%, severe mitral regurgitation and moderate tricuspid regurgitation. Due to the patient's presenting symptoms he was recommended to undergo heart catheterization which demonstrated severe triple vessel coronary artery disease. Consultation was placed to Dr. Mcintosh from cardiothoracic surgery. He was recommended to undergo coronary artery bypass grafting as well as mitral and tricuspid repair. The usual perioperative course was discussed in detail with the patient and his family, all risks and benefits were explained, all questions were answered, and consent was obtained to proceed with surgery. The patient was kept inpatient due to the nature of his disease process. HOSPITAL COURSE: The patient was brought to the preoperative area 07/27/23, prepared in the usual fashion, and subsequently taken to the operating room where Dr. Mcintosh performed triple-vessel CABG along with mitral and tricuspid repair. Upon completion of surgery the patient was transferred to the cardiovascular intensive care unit where he was recovered and monitored hemodynamically. He was extubated, all lines, tubes, and drips were discontinued when appropriate. The patient did experience bradycardia with paroxysmal atrial fibrillation requiring permanent pacemaker placement. Once felt to be stable transfer orders were placed for 3 S. cardiac stepdown unit, and he was transferred to 3 S. cardiac stepdown unit for further monitoring and rehabilitation. His oxygen was titrated down, he continued to work with physical and occupational therapy, he was tolerating oral diet, his pain was controlled, repeat echocardiogram was stable, and he was ready to be discharged to home with [facility] care on postoperative day #11. He received written and verbal instruction regarding his medications, activity restrictions, signs and symptoms requiring physician notification, and follow-up appointments. Patient Condition at Discharge: Serious Plan - Discharge Summary Discharge Rx Participant: Yes New Discharge Prescriptions: New Apixaban [Eliquis] 5 mg PO BID #60 tab Metoprolol Tartrate [Lopressor] 12.5 mg PO BID #60 tab Melatonin 6 mg PO HS PRN tab PRN Reason: Insomnia Sennosides-Docusate Sodium [Senokot-S] 2 each PO HS PRN tab PRN Reason: Constipation Acetaminophen Tab [Tylenol] 650 mg PO Q4HR PRN tab PRN Reason: Fever and/ or Mild Pain Aspirin 81 mg PO DAILY #30 tab Amiodarone [Cordarone] 200 mg PO BID #21 tab Losartan [Cozaar] 25 mg PO DAILY@1200 #30 tab Nicotine 14Mg/24Hr Patch [Habitrol] 1 patch TRANSDERM DAILY #30 patch Ferrous Sulfate [Iron (65 MG Elemental)] 325 mg PO W/LUNCH #30 tab Atorvastatin [Lipitor] 40 mg PO HS #30 tab Ascorbic Acid [Vitamin C] 500 mg PO 1200 #30 tab Continue Citalopram Hydrobromide [CeleXA] 20 mg PO DAILY Cholecalciferol [Vitamin D3 (25 Mcg = 1000 Iu)] 50 mcg PO DAILY Omeprazole Magnesium [PriLOSEC] 20 mg PO DAILY Discontinued lisinopriL [Zestril] 20 mg PO DAILY Atorvastatin [Lipitor] 20 mg PO HS atenoloL [Tenormin] 50 mg PO DAILY predniSONE [Deltasone] 20 mg PO DAILY Discharge Medication List Citalopram Hydrobromide [CeleXA] 20 mg PO DAILY 03/07/18 [History] Cholecalciferol [Vitamin D3 (25 Mcg = 1000 Iu)] 50 mcg PO DAILY 12/11/21 [History] Omeprazole Magnesium [PriLOSEC] 20 mg PO DAILY 12/11/21 [History] Acetaminophen Tab [Tylenol] 650 mg PO Q4HR PRN tab 08/08/23 [Rx] Amiodarone [Cordarone] 200 mg PO BID #21 tab 08/08/23 [Rx] Apixaban [Eliquis] 5 mg PO BID #60 tab 08/08/23 [Rx] Ascorbic Acid [Vitamin C] 500 mg PO 1200 #30 tab 08/08/23 [Rx] Aspirin 81 mg PO DAILY #30 tab 08/08/23 [Rx] Atorvastatin [Lipitor] 40 mg PO HS #30 tab 08/08/23 [Rx] Ferrous Sulfate [Iron (65 MG Elemental)] 325 mg PO W/LUNCH #30 tab 08/08/23 [Rx] Losartan [Cozaar] 25 mg PO DAILY@1200 #30 tab 08/08/23 [Rx] Melatonin 6 mg PO HS PRN tab 08/08/23 [Rx] Metoprolol Tartrate [Lopressor] 12.5 mg PO BID #60 tab 08/08/23 [Rx] Nicotine 14Mg/24Hr Patch [Habitrol] 1 patch TRANSDERM DAILY #30 patch 08/08/23 [Rx] Sennosides-Docusate Sodium [Senokot-S] 2 each PO HS PRN tab 08/08/23 [Rx] Follow up Appointment(s)/Referral(s): Gomez Montes De Oca MD [STAFF PHYSICIAN] - 08/22/23 9:00 am Sis Higuera MD [STAFF PHYSICIAN] - 1 Week (Office will call with appointment) [facility] [NON-STAFF] - 4 Weeks (You will receive a phone call in approximately 4-6 weeks for evaluation for cardiac rehab) [facility] [[facility]FF] - 1-2 Days (You should be seen the day after discharge, then 2-3 times per week until you start cardiac rehab) Pura Mcintosh MD [STAFF PHYSICIAN] - 08/26/23 10:15 am Slim Holloway MD [Primary Care Provider] - 08/18/23 2:40 pm Scooter Mattson NPC [Nurse Practitioner] - 08/12/23 12:00 pm (You will be seen in the surgeon's office behind the hospital in [facility], [address]. Office phone number is ) Ambulatory/Diagnostic Orders: Complete Blood Count w/diff [LAB.AMB] Time Frame: 3 Days, Location: None Selected Comprehensive Metabolic Panel [LAB.AMB] Time Frame: 3 Days, Location: None Selected Activity/Diet/Wound Care/Special Instructions: DISCHARGE INSTRUCTIONS: 1. No driving for 4 weeks, or until physician gives their ok. 2. The patient should sleep in their own bed, no medical bed needed. 3. Stairs are not an issue. If the bedroom is upstairs, it is advised that the patient go up at night and down in the morning for the first week. Go slowly, using handrail and take 1 step at a time. 4. MARIYA hose are to be worn for 30 days post surgery or until physician discontinues. 5. Heart hugger is to be worn 100% of the time until physician discontinues.(except when showering) 6. No lifting, pushing, or pulling more than 10 pounds for 12 weeks. The physician will advise of any restriction changes. 7. The patient is expected to continue the prescribed walking program. 8. Continue pain control per as needed orders. 9. Continue with incentive spirometry and splinting/heart hugger until otherwise directed by the physician. 10. Must shower daily using liquid antibacterial soap 11. Routine sternal incision care. No powders, lotions, ointments on incisions. No dressings are necessary on incisions unless they are draining. Dermabond tape is to remain on sternal incision until surgeon follow-up. 12. Please call surgeon/LE[employer] SALES REPRESENTATIVE for temp greater than 101 F or purulent drainage from incisions. 13. You should weigh yourself daily, record and bring log with you to follow up appointments. 14. All prescriptions given by surgeon for 30 days. Refills need to be filled through crocheter/primary care physician. 15. A Red armband has been placed on the patient. It should be worn for 30 days post discharge from surgery and will be removed by the cardiac surgeons. If an ER visit is necessary, please make sure the number on the Red armband is called before going to ER. 16. You have been referred to and are expected to begin Cardiac Rehab in approximately 4-6 weeks. 17. Quitting smoking is the most important step you can take to improve your health. For additional information and assistance to quit smoking, please call the [place] tobacco quit line (8-921-WFWK-NOW/ ) or online: [email or web address]/how-to-qu it-tobacco HOME HEALTH SERVICES TO PROVIDE: RN SKILLED HOME CARE SERVICES FOR POST-OP SURGICAL PATIENTS WITH THE FOLLOWING: Coronary Artery Bypass Surgery (CABG), Mitral Valve Replacement/Repair ( MVR), Aortic Valve Replacement/Repair (AVR) RN TO CONTINUE EDUCATION FROM ``ROAD TO A HEALTH HEART PATIENT EDUCATION MANUAL (GIVEN TO PATIENT IN THE HOSPITAL) MEDICATION RECONCILIATION WITH EDUCATION NEEDED ON FIRST HOME VISIT EMPHASIZE IMPORTANCE OF WEARING BREAST SUPPORT/HEART HUGGER ENCOURAGE USE OF INCENTIVE SPIROMETER 10 X EVERY HOUR WHILE AWAKE ENCOURAGE UTILIZATION OF LOWER EXTREMITY COMPRESSION STOCKINGS/MARIYA HOSE and ELEVATE LEGS ABOVE LEVEL OF HEART WHILE AT REST. ENCOURAGE AMBULATION 3-5x/day INCREASING TOLERATES, WHILE AVOIDING EXTREMES IN TEMPERATURE FREQUENCY: RN TO OPEN THE PATIENT WITHIN 24 HOURS OF DISCHARGE FROM THE HOSPITAL WITH TELEHEALTH INSTALLED AT [facility], RN TO VISIT 2-3 X A WEEK FOR 4 WEEKS ESTABLISHED BY PATIENT NEEDS. LABORATORY: CBC, CMP TO BE DRAWN ON THE THIRD DAY HOME, (RAN STAT) FAX RESULTS TO [phone]. TELEHEALTH PARAMETERS: WEIGHT: NOTIFY MD OF WEIGHT GAIN OF 2 LBS IN 24 HOURS OR 5 LBS IN ONE WEEK HR: NOTIFY MD OF HR <55 BPM OR HR>100 BPM BP: NOTIFY MD IF BP <90/55 OR BP>140/100 O2 SAT: NOTIFY MD IF PO2<93% ON ROOM AIR SEND TELEHEALTH REPORT TO NEON SIGN WORKER AND CARDIOVASCULAR SURGEON THE FIRST WEEK OF CARE AND THEN BI-WEEKLY. PLEASE ADDITIONALLY COMMUNICATE ANY ABNORMALS AND NEW FINDINGS TO THE SURGEONS OFFICE. Instructions following a heart rhythm device implant. 1. Keep dressing DRY for 5 DAYS. You may cover the area with Saran or Cling Wrap, prior to a shower. 2. The dressing will be removed in the Device Clinic at [facility]. Absorbable sutures were used to close the wound. 3. Avoid raising the left arm above the shoulder level. 4 week restriction 4. Avoid arm movements, like backscratching, rubbing the head, or pulling on a cord. 4 weeks restriction 5. Gentle range of motion movements of the shoulder, closest to the incision should be performed to avoid a frozen shoulder. (Pendulum exercises of the shoulder) 6. The opposite arm may be used freely. 7. Activities such as wood chopping with an axe, pull-ups in the gymnasium, power lifting, arc-welding, being close to home induction cooktops will always be a problem. 8. Arm sling is only a reminder not to raise the arm above the head. You do not need to keep the arm completely immobilized. Your free to move the arm and use it and for normal activities. In case of any problems, please call [facility], Bon Gupta, @ [phone], Attention: Device Clinic Discharge Disposition: HOME WITH HOME HEALTH SERVICES
--- NOTE | 2023-08-09 01:14 | P.PN ---
Subjective Progress Note Date: 08/08/23 This is a 73-year-old male who presented to the emergency department with feeling of chest pain or shortness of breath. Patient reported some pressure and squeezing sensation along with a minimal cough and bloating. Patient reports he follows with Dr. Holloway in the outpatient setting with a past medical history of GERD, hyperlipidemia, hypertension, continues to smoke about 1 pack per day, has an occasional drink although not very often and denies any other illicit drug use. Chest x-ray in the ER shows interstitial infiltrates noted with mid and lower lung zones bilaterally that could reflect edema versus interstitial pneumonia. Patient underwent CTA of the chest showing no diagnostic evidence of PE, COPD with pulmonary fibrosis correlate for mild CHF with a dense coronary artery atherosclerosis noted along with incidental note of abdominal aortic aneurysm partially included measuring approximately 3.3 cm with nonspecific mediastinal and hilar lymphadenopathy. There is a prominent pulm onary artery that can be associated with pulmonary artery hypertension. 2-D echo was ordered and pending and was patient was admitted for chest pain for cardiology evaluation. Patient started on heparin as troponins was 0.031 and trending up at 0.043. Virology testing including influenza, RSV, and CoVid were all negative. WBC revealed a 10.8, hemoglobin 15.8, platelets 298, INR 1.0, sodium was 139 with a potassium of 3.9, BUN was 14 with creatinine of 0.86, total bili is 0.6, LFTs within normal limits, BNP was 546. Patient is currently maintained on 2 L of oxygen via nasal cannula for shortness of breath and oxygen saturations are 95-98% and patient reports he does not wear oxygen outpatient. Patient has been counseled extensively on complete tobacco cessation. 07/21/2023 Patient is seen and evaluated in follow-up with cardiology following along with CT surgery which has been consulted. Patient underwent cardiac catheterization showing triple-vessel heart disease and cardiothoracic has been consulted to discuss possible surgical intervention. Initiation of preoperative clearance has been ongoing and patient was scheduled to undergo NICOLAS today. Patient continues on 2 L via nasal cannula and reports his shortness of breath is improved and keeps asking if he could go home. Awaiting further evaluation from CT surgery and will discuss further with them about this. Family at the bedside with multiple questions and concerns were answered to the best of our ability. Patient's at bedside reports he smokes at least 2 packs a day of cigarettes and he mentioned only 1 pack per day and also drinks coffee from the time he wakes up until the time he goes to bed all day. Patient is afebrile denies chest pain or palpitations. No worsening shortness of breath noted. Patient was nothing by mouth for NICOLAS and diet resumed after procedure and tolerating with no reports of nausea or vomiting. Pro-calcitonin was normal and will discontinue empiric antibiotics. 07/22/2023 Patient is seen in follow-up today undergoing continued surgical work up for severe triple vessel disease. Patient continues to report he feels well and would like to go home prior to surgery. Patient is still requiring 2 liters via NC of . Multiple medical consultations following. Tentative surgery on Tuesday. Per cardiology, no plans for discharge prior to surgery at this time. Smoking cessation reinforced and patient remains on nicotine patch. Patient is afebrile and denies any chest pain or shortness of breath. Tolerating diet with no reported nausea or vomiting. 07/23/2023 Patient is currently lying in bed. Awake alert and oriented x3. Able to ambulate in the room. No complaints of chest pain or shortness of breath. No nausea vomiting abdominal pain or diarrhea. Saturating at 97% on room air. Patient has been afebrile. No cough or sputum production. Laboratory data showed sodium 135 potassium 3.7 chloride 100 bicarb is 27 BUN 2020 creatinine 0.9 and blood sugars 150. Patient is being continued on aspirin and statin, metoprolol and Aldactone. Cardiology and CT surgery is on board. Patient is scheduled for coronary artery bypass graft on 07/27/2023. 07/24/2023 Patient is currently in the telemetry unit. No complaints of chest pain or shortness of breath. No nausea vomiting abdominal pain or diarrhea. Able to ambulate in the room. Currently on oxygen at 2 L via nasal cannula and saturating at 100%. Patient has been afebrile. No acute overnight issues. P atient is using incentive spirometry. Scheduled for coronary revascularization surgery on 07/27/2023. Cardiology, pulmonary and CT surgery is on board. 07/25/2023 Patient is seen in follow-up this morning continued on 2 L via nasal cannula with good oxygen saturations and takes off frequently. Patient has been up walking around and labs within normal limits. Patient is using incentive spirometer as instructed and following heart healthy diet. Planning on CABG with valve repair or replacement on Tuesday with cardiothoracic surgery. Patient is currently afebrile with no reports of chest pain or worsening shortness of breath. Patient is tolerating diet and denies nausea or vomiting. 07/26/2023 Patient seen and evaluated in follow-up today and was told by manager shift that patient was sleeping sitting at the side of the bed and fell forward striking his nasal bone and head on the table. Maxillofacial CT was done showing concern for minimal nasal bone fracture. CT brain ordered without contrast as patient will be undergoing extensive CABG surgery in the a.m. and maintained on high intensity heparin throughout. This was discussed and relayed to cardiothoracic surgery and following protocol. Patient continues to require 2-3 L via nasal cannula otherwise denies worsening shortness of breath or chest pain. Patient denies having dizziness or lightheadedness or passing out at the time of this fall. No reports of nausea or vomiting noted and patient will be nothing by mouth at midnight. 07/28/2023 Patient is seen and evaluated in follow-up today currently in the ICU with multiple medical consultations following. Patient is status post triple-vessel coronary artery bypass grafting with complex mitral valve repair. Patient continues with multiple chest tubes and [place] catheter indwelling [place] catheter. Patient not requiring pressor support at this time is currently sitting up in the chair. Patient does have heart hugger noted. Patient also continues with insulin drip with blood sugars well controlled and we'll transition to sliding scale and long-acting as needed possibly in 24 hours. Patient is afebrile reports some chest wall discomfort although reports to feeling well. Chest x- ray today shows residual mild pulmonary vascular congestion with some i mprovement on the right. Hemoglobin 7.2 and has received 2 units of PRBCs yesterday. Will follow-up with repeat chest x-ray and labs in the a.m. 07/29/2023 Patient is seen in follow-up today continues to be in the ICU currently sitting up in the chair. Patient reports feeling fatigued today and not getting much sleep. Hemoglobin was found to be 6.9 and awaiting receive a unit of PRBC. Patient to be transitioned off insulin drip and will start with sliding scale with Accu-Cheks before meals and at bedtime and add long-acting if needed for tight glycemic control. Patient is afebrile with no increasing shortness of breath noted. Patient is maintained on 3 L via nasal cannula maintaining oxygen saturations above 90%. Chest x-ray today shows right lung airspace opacification is concerning for developing pneumonia with stable left lower lung airspace opacification. Patient to continue with incentive spirometer at least 10 times every hour while awake. Patient is tolerating diet although not much of an appetite right now and reports to being fatigued. Will continue heart healthy diabetic diet. 08/01/2023 Patient seen and evaluated in follow-up today continues to be in the ICU with multiple medical consultations following. Patient is continued on 2 L via nasal cannula with good oxygen saturations above 95%. Patient continues to be restless and almost no sleep and has been receiving as needed Xanax with melatonin. Patient with some pulmonary congestion did receive a dose of Lasix today. Hemoglobin is stable at 8.1. Sodium slightly low at 129 with a potassium of 4.0 and creatinine is 0.80. Liver functions are elevated with an AST of 431 and ALT is 213 and statin has been discontinued for now. Recommend follow-up labs in the a.m. Blood sugars well controlled on current regimen and will continue with Accu-Cheks before meals and at bedtime and sliding scale. Encouraged oral intake and increased activity as tolerated. 08/02/2023 Patient is seen today currently sitting up in the chair with at the bedside. Patient continues to appear exhausted. Sleep cycles are often patient is sleeping mostly during the day and has been up all night. Patient does have melatonin on although not helping and as needed Xanax. Multiple medical consultations following including cardiology and patient has had continued pacer wires and remains in junctional rhythm and cardiology recommending permanent pacemaker. Plan for pacemaker on 08/03/2023. Patient was given a dose of Lasix today. Hemoglobin stable. Patient continues to have cough that sounds conges ian needs encouragement on using heart hugger. at the bedside reports she has been helping him with this 48 doesn't remember to grab the handles when coughing. Encouraged incentive spirometer use and continued increased activity as tolerated. 08/03/2023 Patient is seen and evaluated in follow-up currently undergoing permanent pacemaker placement with Dr. Rosario today. Multiple medical consultations following the patient is continued on 2 L via nasal cannula. Chest x-ray today shows resolving volume overloadsome residual remaining. Patient is maintained on breathing inhalational treatments and will continue. Blood sugars well controlled and will continue with Accu-Cheks before meals and at bedtime and sliding scale as needed. Labs reviewed today showing a slightly low potassium of 3.8 and was given potassium supplementation. Sodium 131 which is improved and liver functions improving as AST is 117 and ALT is 167. Hemoglobin is stable at 7.3 today and recommended transfuses 7 or less. 08/04/2023 Patient is seen in follow-up today status post pacemaker placement continues in the ICU with multiple medical consultations following. Patient continues on 2 L via nasal cannula maintaining oxygen saturations above 95%. Chest x-ray today shows some interval improvement with residual patchy pulmonary edema remains with a trace a left pleural effusion. Patient continues to report a cough with congestion as well as periods of feeling like he is unable to catch his breath. Patient has been up and working with physical therapy and reports to feeling exhausted. Patient continues to have issues with no sleep at night and nursing staff has been working with the patient extensively on staying awake during the day for proper sleep at night. Patient is afebrile with no reports of worsening shortness of breath or chest pains. Patient has chest wall pain and is extr gene sensitive at the pacemaker site. Hemoglobin is stable at 8 today and other labs reviewed and within normal limits. Liver functions are trending down and AST is now 68 with an ALT of 117. Follow-up chest x-ray and labs are ordered. 08/05/2023 Patient is seen in follow-up today working on being transitioned out of the ICU to 3 S. Patient reports he receives some rest last night and feels much improved. Patient is being considered for discharge possibly this weekend. Patient is afebrile with no reports of chest pains or worsening shortness of breath. Patient reports his breathing is slightly improved today and has been weaning FiO2 as tolerated. Patient tolerating diet with no reports of nausea or vomiting. Blood sugars well controlled on current regimen. 08/06/2023 Patient is currently sitting in the chair. Awake alert and oriented x3. Currently on room air. Chest x-ray showed stable changes. Otherwise denies any complaints of chest pain. Using incentive spirometry. Patient has been afebrile. No nausea vomiting abdominal pain or diarrhea. WBC 8.1 hemoglobin 8.1 and platelets 345 MCV 101.6. Sodium 136 potassium 4.6 chloride 103 bicarb is 28 BUN 35 and creatinine 1.06 low iron and transferrin saturation. Patient is on iron supplementation. 08/07/2023 Patient is currently sitting in the bed. Awake alert and oriented x3. No complaints of chest pain or shortness of breath. No cough or sputum production. No headache or dizziness or lightheadedness. Tolerating oral diet. Patient is on room air. Laboratory data showed hemoglobin is stable. Patient is being continued on iron supplementation and also follow-up vitamin B-12 and folate levels due to macrocytosis. No fever no chills. No other acute overnight issues. Laboratory data reviewed. Hemoglobin 8.5. Possible discharge in next 24 to 48 hours. PT OT is on board. Review of systems: Constitutional: No reports of fatigue, no fever, or chills, reports he got some sleep last night Cardiovascular: No reports of chest pain or palpitations, reports chest wall discomfort when coughing Respiratory: No reports of worsening shortness of breath , reports occasional cough GI: No reports of nausea, vomiting, or diarrhea : No reports of dysuria or retention Neurovascular: reports of generalized weakness 08/08/2023 Patient is seen in follow-up today with CT surgery working on discharge juan m forbes. Patient has been cleared by cardiology and pulmonary for discharge home today. Patient encouraged to take incentive spirometer home and continue using at least 10 times every hour while awake. Strongly encouraged complete tobacco cessation as patient was smoking at least 2 packs of cigarettes per day. Family at the bedside with questions and concerns were answered to the best of our ability. Patient is medically stable for discharge today. Encouraged outpatient follow-up with primary care provider. Patient denies chest pain or shortness of breath. Patient is afebrile with no reported nausea or vomiting patient is tolerating diet. Review of systems: Constitutional: No reports of fatigue, no fever, or chills Cardiovascular: No reports of chest pain or palpitations, reports minimal chest wall discomfort when coughing Respiratory: No reports of worsening shortness of breath , reports occasional cough GI: No reports of nausea, vomiting, or diarrhea : No reports of dysuria or retention Neurovascular: reports of generalized weakness All medications have been reviewed PHYSICAL EXAMINATION: GENERAL: The patient is alert and oriented x3, Well developed, well nourished. HEENT: Pupils are round and equally reacting to light. EOMI. no scleral icterus. No conjunctival pallor. Normocephalic, atraumatic. No pharyngeal erythema. No thyromegaly. No facial deformity noted on exam CARDIOVASCULAR: S1 and S2 muffled PULMONARY: diminished breath sounds bilaterally with no wheezing or rhonchi noted. ABDOMEN: soft. Nontender on exam. obese. non-distended, normoactive bowel sounds. No palpable organomegaly. MUSCULOSKELETAL: No joint swelling or deformity. EXTREMITIES: No cyanosis, clubbing, or pedal edema. NEUROLOGICAL: Gross neurological examination did not reveal any focal deficits. SKIN: No rashes. Assessment: Chest pain status post cardiac catheterization found to have severe triple- vessel disease status post three-vessel CABG with complex mitral valve repair Status post permanent pacemaker placement on 08/03/2023 Acute hypoxic respiratory failure, present on admission, multifactorial, secondary to severe triple vessel disease as well as acute CHF exacerbation with preserved EF Acute blood loss anemia and thrombocytopenia expected post surgery, hemoglobin stable NSTEMI, present on admission with elevated troponins COPD, not in exacerbation Coronary artery atherosclerosis noted on CTA 3.3 cm abdominal aortic aneurysm noted on CTA Aortic valve murmur consistent with aortic stenosis, moderate History of GERD Hyperlipidemia history Hypertension history Continued ongoing nicotine dependence, smokes about 2 packs per day Excessive caffeine intake daily GI prophylaxis DVT prophylaxis Full code Plan: Patient is being discharged by cardiothoracic surgery today status post triple- vessel CABG with complex mitral valve repair Patient is status post permanent pacemaker placement and will follow-up with cardiology outpatient. Patient has been cleared by cardiology for discharge Labs are stable and recommended follow-up labs in the next few days Cardiac rehab outpatient and close outpatient follow-up with CT surgery Complete tobacco cessation was again discussed in detail as patient was smoking 2 packs a day prior to this admission Patient instructed to take incentive spirometer home and continue using at least 10 times every hour while awake Patient is medically stable for discharge home today. Due to multiple complex medical issues, prognosis is guarded The impression and plan of care has been dictated by Delia Oakes, nurse practitioner as directed. Dr. Matthew MD I have performed a history and examination and MDM of this patient, discussed the same with the dictator, and agree with the dictator's assessment and plan as written ,documented as a scribe. Based on total visit time, I have performed more than 50% of the visit. Any additional findings or plans will be noted. Objective - Vital Signs Vital signs: Vital Signs Temp 98.0 F 08/08/23 11:41 Pulse 88 08/08/23 11:44 Resp 18 08/08/23 11:44 BP 97/59 08/08/23 11:41 Pulse Ox 94 L 08/08/23 11:41 FiO2 2 08/05/23 00:00 Intake & Output 08/07/23 08/08/23 08/08/23 18:59 06:59 18:59 Intake Total 455 20 20 Output Total 375 300 Balance 80 -280 20 Weight 72.8 kg Intake: IV 20 20 20 Invasive Line 1 20 20 20 Oral 435 Output: Urine 375 300 Other: Voiding Method Urinal Urinal # Voids 1 # Bowel Movements 1 ABP, PAP, CO, CI - Last Documented Arterial Blood Pressure 103/56 Pulmonary Artery Pressure 52/14 Cardiac Output 4 Cardiac Index 2.2 - Labs CBC & Chem 7: 08/08/23 04:00 08/08/23 04:00 Labs: Abnormal Lab Results - Last 24 Hours (Table) 08/07/23 08/07/23 08/08/23 Range/Units 17:03 19:49 02:25 RBC (4.30-5.90) m/uL Hgb (13.0-17.5) gm/dL Hct (39.0-53.0) % MCV (80.0-100.0) fL RDW (11.5-15.5) % Sodium (137-145) mmol/L BUN (9-20) mg/dL Creatinine (0.66-1.25) mg/dL Glucose (74-99) mg/dL POC Glucose (mg/dL) 140 H 149 H 124 H (70-110) mg/dL 08/08/23 08/08/23 08/08/23 Range/Units 04:00 04:00 11:45 RBC 2.49 L (4.30-5.90) m/uL Hgb 7.9 L (13.0-17.5) gm/dL Hct 25.2 L (39.0-53.0) % MCV 101.4 H (80.0-100.0) fL RDW 21.5 H (11.5-15.5) % Sodium 131 L (137-145) mmol/L BUN 49 H (9-20) mg/dL Creatinine 1.28 H (0.66-1.25) mg/dL Glucose 100 H (74-99) mg/dL POC Glucose (mg/dL) 126 H (70-110) mg/dL
== END 2023-08-08 17:24 | disposition home health service (06) | DRG 216 ==
LOC: EC 11:59 → 3SCARD 15:44 → 2SICU 07-27 07:55 → 3SCARD 08-05 22:11
PROVIDERS: ADMIT Surgery; ATTEND Surgery
PROC: B2111ZZ Fluoroscopy of Multiple Coronary Arteries using Low Osmolar Contrast (ICD-10-PCS; 2023-07-21)
PROC: 4A023N7 Measurement of Cardiac Sampling and Pressure, Left Heart, Percutaneous Approach (ICD-10-PCS; 2023-07-21)
PROC: B2151ZZ Fluoroscopy of Left Heart using Low Osmolar Contrast (ICD-10-PCS; 2023-07-21)
PROC: B24BZZ4 Ultrasonography of Heart with Aorta, Transesophageal (ICD-10-PCS; 2023-07-27)
PROC: 5A1221Z Performance of Cardiac Output, Continuous (ICD-10-PCS; principal; 2023-07-27 08:00)
PROC: 02100Z9 Bypass Coronary Artery, One Artery from Left Internal Mammary, Open Approach (ICD-10-PCS; principal; 2023-07-27 08:00)
PROC: 02UJ0JZ Supplement Tricuspid Valve with Synthetic Substitute, Open Approach (ICD-10-PCS; principal; 2023-07-27 08:00)
PROC: 021109W Bypass Coronary Artery, Two Arteries from Aorta with Autologous Venous Tissue, Open Approach (ICD-10-PCS; principal; 2023-07-27 08:00)
PROC: 06BP4ZZ Excision of Right Saphenous Vein, Percutaneous Endoscopic Approach (ICD-10-PCS; principal; 2023-07-27 08:00)
PROC: 02L70CK Occlusion of Left Atrial Appendage with Extraluminal Device, Open Approach (ICD-10-PCS; principal; 2023-07-27 08:00)
PROC: 02BN0ZX Excision of Pericardium, Open Approach, Diagnostic (ICD-10-PCS; principal; 2023-07-27 08:00)
PROC: 02UG0JZ Supplement Mitral Valve with Synthetic Substitute, Open Approach (ICD-10-PCS; principal; 2023-07-27 08:00)
PROC: 30233N1 Transfusion of Nonautologous Red Blood Cells into Peripheral Vein, Percutaneous Approach (ICD-10-PCS; 2023-07-27 08:00)
PROC: 3E043XZ Introduction of Vasopressor into Central Vein, Percutaneous Approach (ICD-10-PCS; 2023-07-27 08:00)
PROC: 0JH606Z Insertion of Pacemaker, Dual Chamber into Chest Subcutaneous Tissue and Fascia, Open Approach (ICD-10-PCS; 2023-08-03)
PROC: 02H63JZ Insertion of Pacemaker Lead into Right Atrium, Percutaneous Approach (ICD-10-PCS; 2023-08-03)
PROC: 02HK3JZ Insertion of Pacemaker Lead into Right Ventricle, Percutaneous Approach (ICD-10-PCS; 2023-08-03)
DX: I25.110 Atherosclerotic heart disease of native coronary artery with unstable angina pectoris (principal); I50.33 Acute on chronic diastolic (congestive) heart failure; I51.1 Rupture of chordae tendineae, not elsewhere classified; J96.01 Acute respiratory failure with hypoxia; D62 Acute posthemorrhagic anemia; I44.2 Atrioventricular block, complete; J84.9 Interstitial pulmonary disease, unspecified; J98.11 Atelectasis; N17.9 Acute kidney failure, unspecified; K92.1 Melena; I25.84 Coronary atherosclerosis due to calcified coronary lesion; F17.210 Nicotine dependence, cigarettes, uncomplicated; D50.9 Iron deficiency anemia, unspecified; D69.59 Other secondary thrombocytopenia; K81.9 Cholecystitis, unspecified; J44.9 Chronic obstructive pulmonary disease, unspecified; I95.9 Hypotension, unspecified; I27.20 Pulmonary hypertension, unspecified; Z71.6 Tobacco abuse counseling; I11.0 Hypertensive heart disease with heart failure; I71.40 Abdominal aortic aneurysm, without rupture, unspecified; I49.5 Sick sinus syndrome; I70.0 Atherosclerosis of aorta; F32.A Depression, unspecified; G47.00 Insomnia, unspecified; I08.3 Combined rheumatic disorders of mitral, aortic and tricuspid valves; I48.0 Paroxysmal atrial fibrillation; J98.4 Other disorders of lung; K02.9 Dental caries, unspecified; D75.89 Other specified diseases of blood and blood-forming organs; K21.9 Gastro-esophageal reflux disease without esophagitis; T50.2X5A Adverse effect of carbonic-anhydrase inhibitors, benzothiadiazides and other diuretics, initial encounter; E78.5 Hyperlipidemia, unspecified; W06.XXXA Fall from bed, initial encounter; Y92.230 Patient room in hospital as the place of occurrence of the external cause; Z79.02 Long term (current) use of antithrombotics/antiplatelets; Z79.82 Long term (current) use of aspirin; Z79.899 Other long term (current) drug therapy; Z82.49 Family history of ischemic heart disease and other diseases of the circulatory system; R74.01 Elevation of levels of liver transaminase levels; Z20.822 Contact with and (suspected) exposure to COVID-19; Z71.3 Dietary counseling and surveillance
CPT/HCPCS: 33208; 36415; 36430; 70450; 70486; 71045; 71046; 71275; 80048; 80053; 80061; 80074; 81003; 82330; 82607; 82728; 82747; 82805; 83036; 83540; 83550; 83735; 83880; 84145; 84443; 84484; 85025; 85027; 85384; 85610; 85730; 86022; 86850; 86891; 86900; 86901; 86920; 87040; 87070; 87102; 87116; 87205; 87206; 87636; 88305; 93005; 93306; 93308; 93312; 93320; 93325; 93458; 93567; 93880; 93922; 93970; 94150; 94640; 94760; 96374; 99291

== ENCOUNTER 2023-08-29 20:18 | Inpatient (IN) | payer MEDICARE ==
--- NOTE | 2023-08-29 21:01 | ED ---
General Adult HPI - General Source: patient, family, RN notes reviewed Mode of arrival: ambulatory Limitations: no limitations <Kishor Ross - Last Filed: 08/29/23 21:00> - General Source: RN notes reviewed, old records reviewed Limitations: no limitations - History of Present Illness -: days(s) Radiation: non-radiation Severity scale (1-10): 4 Consistency: constant Improves with: none Worsens with: none Associated Symptoms: malaise, shortness of breath, weakness Treatments Prior to Arrival: none <Erwin Whitehead - Last Filed: 09/02/23 19:34> - General Stated complaint: bp low/hemoglobin low Time Seen by Provider: 08/29/23 21:00 - History of Present Illness Initial comments: 73-year-old male presents emergency department with family for evaluation of hypotension, anemia. 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 Patient had surgery by Patient had second diuretic added by PCP every other day and has recently lost 4 pounds. Blood pressure has been lower than normal. (Kishor Ross) This is a 73-year-old male to the emergency department for evaluation of low blood pressure. Patient recently did have CABG surgery just over a month ago. Patient's outpatient scenario has been going well but recently increased his diuretic and today has not been active. His been sleeping most of the day not wanting to eat or drink not doing his normal daily activity and family checked his blood pressure night founding it to be low. Patient feels short of breath but no chest pain (Erwin Whitehead) - Related Data Home Medications Medication Instructions Recorded Confirmed Citalopram Hydrobromide [CeleXA] 20 mg PO DAILY 03/07/18 08/29/23 Cholecalciferol [Vitamin D3 (25 50 mcg PO DAILY 12/11/21 08/29/23 Mcg = 1000 Iu)] Omeprazole Magnesium [PriLOSEC] 20 mg PO DAILY 12/11/21 08/29/23 Ascorbic Acid [Vitamin C] 500 mg PO DAILY@1200 08/29/23 08/29/23 Ferrous Sulfate [Iron (65 MG 325 mg PO BID 08/29/23 08/29/23 Elemental)] Sennosides-Docusate Sodium 2 tab PO HS PRN 08/29/23 08/29/23 [Senokot-S] clonazePAM [KlonoPIN] 0.5 mg PO HS 08/29/23 08/29/23 Previous Rx's Medication Instructions Recorded Acetaminophen Tab [Tylenol] 650 mg PO Q4HR PRN tab 08/08/23 Apixaban [Eliquis] 5 mg PO BID #60 tab 08/08/23 Atorvastatin [Lipitor] 40 mg PO HS #30 tab 08/08/23 Melatonin 6 mg PO HS PRN tab 08/08/23 Metoprolol Tartrate [Lopressor] 12.5 mg PO BID #60 tab 08/08/23 Nicotine 14Mg/24Hr Patch [Habitrol] 1 patch TRANSDERM DAILY #30 patch 08/08/23 Furosemide [Lasix] 40 mg PO DAILY #30 tablet 08/12/23 Potassium Chloride ER [K-Dur 10] 10 meq PO DAILY #30 tab 08/12/23 Aspirin 81 mg PO DAILY 30 Days #30 tab 09/01/23 metOLazone [Zaroxolyn] 2.5 mg PO MOTH tab 09/01/23 polyethylene glycoL 3350 [Miralax] 17 gm PO DAILY 3 Days #3 packet 09/01/23 Allergies Allergy/AdvReac Type Severity Reaction Status Date / Time No Known Allergies Allergy Verified 08/29/23 22:44 Review of Systems ROS Other: All systems not noted in ROS Statement are negative. <Kishor Ross - Last Filed: 08/29/23 21:00> ROS Other: All systems not noted in ROS Statement are negative. <Erwin Whitehead - Last Filed: 09/02/23 19:34> ROS Statement: Those systems with pertinent positive or pertinent negative responses have been documented in the HPI. Past Medical History Past Medical History: GERD/Reflux, Hyperlipidemia, Hypertension History of Any Multi-Drug Resistant Organisms: None Reported Past Surgical History: Hernia Repair Past Anesthesia/Blood Transfusion Reactions: No Reported Reaction Past Psychological History: Depression Smoking Status: Current every day smoker Past Alcohol Use History: None Reported Additional Past Alcohol Use History / Comment(s): STARTED SMOKING AT AGE 15 QUIT ON AND OFF AND CURRENTLY SMOKING , SMOKES 1 PPD Past Drug Use History: None Reported - Past Family History Father Family Medical History: Myocardial Infarction ([place]) Additional Family Medical History / Comment(s): at age 90 from a myocardial infarction <Kishor Ross - Last Filed: 08/29/23 21:00> General Exam <StewartKishor castano - Last Filed: 08/29/23 21:00> General appearance: alert, anxious, lethargic Head exam: Present: atraumatic, normocephalic, normal inspection Eye exam: Present: normal appearance, PERRL, EOMI. Absent: scleral icterus, conjunctival injection, periorbital swelling ENT exam: Present: normal exam, mucous membranes moist Neck exam: Present: normal inspection. Absent: tenderness, meningismus, l ymphadenopathy Respiratory exam: Present: normal lung sounds bilaterally. Absent: respiratory distress, wheezes, rales, rhonchi, stridor Cardiovascular Exam: Present: regular rate, normal rhythm, normal heart sounds. Absent: systolic murmur, diastolic murmur, rubs, gallop, clicks GI/Abdominal exam: Present: soft, normal bowel sounds. Absent: distended, tenderness, guarding, rebound, rigid Extremities exam: Present: normal inspection, full ROM, normal capillary refill. Absent: tenderness, pedal edema, joint swelling, calf tenderness Back exam: Present: normal inspection Neurological exam: Present: alert, oriented X3, CN II-XII intact Psychiatric exam: Present: normal affect, normal mood Skin exam: Present: warm, dry, intact, normal color. Absent: rash <Erwin Whitehead - Last Filed: 09/02/23 19:34> - General Exam Comments Initial Comments: Visual Physical Exam Vital signs reviewed General: Well-appearing, nontoxic, no acute distress. Head: Normocephalic, atraumatic Eyes: PERRLA, EOMI ENT: Airway patent Chest: Nonlabored breathing Skin: No visual rash, normal skin tone Neuro: Alert and oriented 3 Musculoskeletal: No gross abnormalities (Kishor Ross) Course <Erwin Whitehead - Last Filed: 09/02/23 19:34> Vital Signs 08/29/23 08/29/23 08/29/23 20:55 22:48 23:00 Temperature 97.6 F Pulse Rate 72 59 L 60 Pulse Rate [ Pulse Oximetery ] Respiratory 18 16 20 Rate Blood Pressure 84/51 79/49 75/47 Blood Pressure [Right Arm] O2 Sat by Pulse 96 98 97 Oximetry 08/30/23 08/30/23 08/30/23 00:00 00:30 01:00 Temperature Pulse Rate 59 L 60 60 Pulse Rate [ Pulse Oximetery ] Respiratory 20 20 22 Rate Blood Pressure 91/55 101/54 93/52 Blood Pressure [Right Arm] O2 Sat by Pulse 99 98 100 Oximetry 08/30/23 08/30/23 08/30/23 01:30 02:00 04:00 Temperature Pulse Rate 61 62 59 L Pulse Rate [ Pulse Oximetery ] Respiratory 20 20 21 Rate Blood Pressure 106/56 104/60 110/61 Blood Pressure [Right Arm] O2 Sat by Pulse 100 97 98 Oximetry 08/30/23 08/30/23 08/30/23 06:00 08:03 14:00 Temperature 97.9 F Pulse Rate 59 L Pulse Rate [ 68 61 Pulse Oximetery ] Respiratory 20 18 18 Rate Blood Pressure 102/60 Blood Pressure 102/62 107/59 [Right Arm] O2 Sat by Pulse 98 96 95 Oximetry 08/30/23 08/30/23 20:00 21:09 Temperature Pulse Rate 66 66 Pulse Rate [ Pulse Oximetery ] Respiratory 16 18 Rate Blood Pressure 102/70 106/55 Blood Pressure [Right Arm] O2 Sat by Pulse 93 L 92 L Oximetry - Reevaluation(s) Reevaluation #1: 08/29/23 22:58 Medical records reviewed (Erwin Whitehead) Reevaluation #2: 08/30/23 01:05 Patient has no improvement in symptoms here in the ER will slowly rehydrate (Erwin Whitehead) Reevaluation #3: 08/30/23 01:05 Patient informed results questions answered (Erwin Whitehead) Reevaluation #4: 08/30/23 01:05 Was pt. sent in by a medical professional or institution (, PA, PLASTIC TECHNICIAN, urgent ca re, hospital, or detention...) When possible be specific @ -no Did you speak to anyone other than the patient for history (EMS, parent, family, police, friend...)? What history was obtained from this source @ -no Did you review nursing and triage notes (agree or disagree)? Why? @ -agree Are old charts reviewed (outside hosp., previous admission, EMS record, old EKG, old radiological studies, urgent care reports/EKG's, detention records)? Report findings @ -yes Differential Diagnosis (chest pain, altered mental status, abdominal pain women, abdominal pain men, vaginal bleeding, weakness, fever, dyspnea, syncope, headache, dizziness, GI bleed, back pain, seizure, CVA, palpatations, mental health, musculoskeletal)? @ -prior EKG interpreted by me (3pts min.). @ -yes X-rays interpreted by me (1pt min.). @ -yes CT interpreted by me (1pt min.). @ -no U/S interpreted by me (1pt. min.). @ -no What testing was considered but not performed or refused? (CT, X-rays, U/S, labs)? Why? @ -none What meds were considered but not given or refused? Why? @ -none Did you discuss the management of the patient with other professionals (professionals i.e. , PA, PLASTIC TECHNICIAN, lab, RT, psych nurse, social welfare research worker, senior payroll administrator, teacher, parole or probation officer, family service caseworker)? Give summary @ -no Was smoking cessation discussed for >3mins.? @ -no Was critical care preformed (if so, how long)? @ -yes31 Were there social determinants of health that impacted care today? How? (Homelessness, low income, unemployed, alcoholism, drug addiction, transportation, low edu. Level, literacy, decrease access to med. care, group home, rehab)? @ -none Was there de-escalation of care discussed even if they declined (Discuss DNR or withdrawal of care, Hospice)? DNR status @ -no What co-morbidities impacted this encounter? (DM, HTN, Smoking, COPD, CAD, Cancer, CVA, ARF, Chemo, Hep., AIDS, mental health diagnosis, sleep apnea, morbid obesity)? @ -none Was patient admitted / discharged? Hospital course, mention meds given and route, prescriptions, significant lab abnormalities, going to OR and other pertinent info. @ - 73 male to the emergency department for evaluation of shortness of breath. Weakness significant today. Patient's found of low blood pressure home remains persistently low blood pressure here in the ER. Patient will be admitted for cardiology evaluation management with underlying history of recent CABG blood pressure medication modification. Patient currently on diuresis as well as increased swelling in the legs and shortness of breath Admitted Undiagnosed new problem with uncertain prognosis? @ -no Drug Therapy requiring intensive monitoring for toxicity (Heparin, Nitro, Insulin, Cardizem)? @ -no Were any procedures done? @ -no Diagnosis/symptom? @ -Weakness, hypotension Acute, or Chronic, or Acute on Chronic? @ -Acute Uncomplicated (without systemic symptoms) or Complicated (systemic symptoms)? @ -Complicated Side effects of treatment? @ -no Exacerbation, Progression, or Severe Exacerbation? @ -exacerbation Poses a threat to life or bodily function? How? (Chest pain, [place], [place], pneumonia, PE, COPD, DKA, ARF, appy, cholecystitis, CVA, Diverticulitis, Homicidal, Suicidal, threat to staff... and all critical care pts) @ -yes with significant hypotension (Erwin Whitehead) Reevaluation #5: 08/30/23 01:05 Differential Weakness: Hypoglycemia, shock, sepsis, hyponatremia, anemia, infection, [place], ETOH, adverse medicine reaction, overdose, stroke, this is not meant to be an all-inclusive list. (Erwin Whitehead) - Consultations Consultation #1: Spoke with H were agrees to admit this patient (Erwin Whitehead) EKG Findings - EKG Comments: EKG Findings:: EKG is paced 63 QRS 78 QTc 552 - EKG Results: EKG: interpreted by ERMD <Erwin Whitehead - Last Filed: 09/02/23 19:34> Medical Decision Making <Kishor Ross - Last Filed: 08/29/23 21:00> - Lab Data Result diagrams: 08/31/23 08:34 08/31/23 17:54 - EKG Data -: EKG Interpreted by Md - Radiology Data Radiology results: report reviewed (Chest x-rays positive for significant pleural effusion), image reviewed <Erwin Whitehead - Last Filed: 09/02/23 19:34> - Medical Decision Making I performed a quick note portion of the signed Kishor Ross PA-C (Kishor Ross) 73 male to the emergency department for evaluation of shortness of breath. Weakness significant today. Patient's found of low blood pressure home remains persistently low blood pressure here in the ER. Patient will be admitted for cardiology evaluation management with underlying history of recent CABG blood pressure medication modification. Patient currently on diuresis as well as increased swelling in the legs and shortness of breath (Erwin Whitehead) - Lab Data Lab Results 08/29/23 08/29/23 08/29/23 Range/Units 21:35 21:35 21:35 WBC 6.0 (3.8-10.6) k/uL RBC 2.91 L (4.30-5.90) m/uL Hgb 9.2 L (13.0-17.5) gm/dL Hct 30.9 L (39.0-53.0) % MCV 106.3 H (80.0-100.0) fL MCH 31.6 (25.0-35.0) pg MCHC 29.8 L (31.0-37.0) g/dL RDW 17.6 H (11.5-15.5) % Plt Count 177 (150-450) k/uL MPV 7.9 Neutrophils % 79 % Lymphocytes % 13 % Monocytes % 5 % Eosinophils % 2 % Basophils % 0 % Neutrophils # 4.7 (1.3-7.7) k/uL Lymphocytes # 0.8 L (1.0-4.8) k/uL Monocytes # 0.3 (0-1.0) k/uL Eosinophils # 0.1 (0-0.7) k/uL Basophils # 0.0 (0-0.2) k/uL Hypochromasia Marked Poikilocytosis Moderate Anisocytosis Slight Macrocytosis Marked A PT 12.4 H (9.0-12.0) sec INR 1.2 H (<1.2) APTT 26.1 (22.0-30.0) sec Sodium 131 L (137-145) mmol/L Potassium 3.6 (3.5-5.1) mmol/L Chloride 94 L (98-107) mmol/L Carbon Dioxide 29 (22-30) mmol/L Anion Gap 8 mmol/L BUN 26 H (9-20) mg/dL Creatinine 1.12 (0.66-1.25) mg/dL Est GFR (CKD-EPI)AfAm 74 (>60 ml/min/1.73 sqM) Est GFR (CKD-EPI)NonAf 64 (>60 ml/min/1.73 sqM) Glucose 93 (74-99) mg/dL Calcium 8.5 (8.4-10.2) mg/dL Magnesium 1.9 (1.6-2.3) mg/dL Total Bilirubin 1.0 (0.2-1.3) mg/dL AST 37 (17-59) U/L ALT 22 (4-49) U/L Alkaline Phosphatase 85 (38-126) U/L Troponin I (0.000-0.034) ng/mL NT-Pro-B Natriuret Pep 1700 pg/mL Total Protein 6.2 L (6.3-8.2) g/dL Albumin 3.1 L (3.5-5.0) g/dL 08/29/23 Range/Units 21:35 WBC (3.8-10.6) k/uL RBC (4.30-5.90) m/uL Hgb (13.0-17.5) gm/dL Hct (39.0-53.0) % MCV (80.0-100.0) fL MCH (25.0-35.0) pg MCHC (31.0-37.0) g/dL RDW (11.5-15.5) % Plt Count (150-450) k/uL MPV Neutrophils % % Lymphocytes % % Monocytes % % Eosinophils % % Basophils % % Neutrophils # (1.3-7.7) k/uL Lymphocytes # (1.0-4.8) k/uL Monocytes # (0-1.0) k/uL Eosinophils # (0-0.7) k/uL Basophils # (0-0.2) k/uL Hypochromasia Poikilocytosis Anisocytosis Macrocytosis PT (9.0-12.0) sec INR (<1.2) APTT (22.0-30.0) sec Sodium (137-145) mmol/L Potassium (3.5-5.1) mmol/L Chloride (98-107) mmol/L Carbon Dioxide (22-30) mmol/L Anion Gap mmol/L BUN (9-20) mg/dL Creatinine (0.66-1.25) mg/dL Est GFR (CKD-EPI)AfAm (>60 ml/min/1.73 sqM) Est GFR (CKD-EPI)NonAf (>60 ml/min/1.73 sqM) Glucose (74-99) mg/dL Calcium (8.4-10.2) mg/dL Magnesium (1.6-2.3) mg/dL Total Bilirubin (0.2-1.3) mg/dL AST (17-59) U/L ALT (4-49) U/L Alkaline Phosphatase (38-126) U/L Troponin I 0.056 H* (0.000-0.034) ng/mL NT-Pro-B Natriuret Pep pg/mL Total Protein (6.3-8.2) g/dL Albumin (3.5-5.0) g/dL Critical Care Time Critical Care Time: Yes Total Critical Care Time: 31 <Erwin Whitehead - Last Filed: 09/02/23 19:34> Disposition <Kishor Ross - Last Filed: 08/29/23 21:00> Is patient prescribed a controlled substance at d/c from ED?: No Time of Disposition: 01:00 <Erwin Whitehead - Last Filed: 09/02/23 19:34> Clinical Impression: Congestive heart failure, Pulmonary edema, Acute pulmonary edema, Hypotension Disposition: ADMITTED IP TO THIS HOSP Condition: Serious
[2023-08-29 21:49] LABS: Anisocytosis Slight; Basophils % (A) 0 %; Eosinophils # (A) 0.1 k/uL (0-0.7); Eosinophils % (A) 2 %; HCT 30.9 % (39.0-53.0); HGB 9.2 gm/dL (13.0-17.5); Hypochromasia Marked; Lymphocytes # (A) 0.8 k/uL (1.0-4.8); Lymphocytes % (A) 13 %; MCH 31.6 pg (25.0-35.0); MCHC 29.8 g/dL (31.0-37.0); MCV 106.3 fL (80.0-100.0); Macrocytosis Marked; Mean Platelet Volume 7.9; Monocytes # (A) 0.3 k/uL (0-1.0); Monocytes % (A) 5 %; Neutrophils # (A) 4.7 k/uL (1.3-7.7); Neutrophils % (A) 79 %; Platelet Count 177 k/uL (150-450); Poikilocytosis Moderate; RBC 2.91 m/uL (4.30-5.90); RDW 17.6 % (11.5-15.5)
[2023-08-29 21:54] LABS: INR 1.2 (<1.2); Partial Thromboplastin Time 26.1 sec (22.0-30.0); Prothrombin Time 12.4 sec (9.0-12.0)
[2023-08-29 21:56] LABS: ALT 22 U/L (4-49); AST 37 U/L (17-59); African American GFR (CKD) 74 (>60 ml/min/1.73 sqM); Albumin 3.1 g/dL (3.5-5.0); Alkaline Phosphatase 85 U/L (38-126); Anion Gap 8 mmol/L; Blood Urea Nitrogen 26 mg/dL (9-20); Calcium 8.5 mg/dL (8.4-10.2); Carbon Dioxide 29 mmol/L (22-30); Chloride 94 mmol/L (98-107); Glucose 93 mg/dL (74-99); Magnesium 1.9 mg/dL (1.6-2.3); Non-African American GFR(CKD) 64 (>60 ml/min/1.73 sqM); Potassium 3.6 mmol/L (3.5-5.1); Sodium 131 mmol/L (137-145); Total Protein 6.2 g/dL (6.3-8.2)
[2023-08-29 22:02] LABS: NT-Pro-B-Type Natriuretic Pept 1700 pg/mL
--- NOTE | 2023-08-29 23:38 | XR ---
EXAM: XR Chest, 2 Views CLINICAL HISTORY: ITS.REASON XR Reason: difficulty breathing TECHNIQUE: Frontal and lateral views of the chest. COMPARISON: No relevant prior studies available. FINDINGS: Lungs: See below. Pleural space: Moderate LEFT pleural effusion. Trace RIGHT pleural effusion. Pulmonary vascular congestion. Cardiomegaly. Correlate for congestive heart failure. No pneumothorax. Heart: See above. Mediastinum: Unremarkable. Bones/joints: Sternotomy wires. Soft tissues: Appendage clip. Tubes, lines and devices: Dual lead pacemaker. IMPRESSION: Moderate LEFT pleural effusion. Trace RIGHT pleural effusion. Pulmonary vascular congestion. Cardiomegaly. Correlate for congestive heart failure.
[2023-08-29] MEDS ORDERED: SODIUM CHLORIDE 0.9% 1,000 ML IV STA (23:59)
[2023-08-29] MEDS ORDERED: SODIUM CHLORIDE 0.9% 500 ML 500 ML IV STA (23:59)
[2023-08-30] MEDS ORDERED: NALOXONE 0.4 MG/ML 1 ML VIAL IV PRN (01:03)
[2023-08-30] MEDS ORDERED: ONDANSETRON 4 MG/2 ML VIAL IVP PRN (01:03)
[2023-08-30] MEDS: SODIUM CHLORIDE 0.9% 1,000 ML IV SCH ×2 (01:33→17:16)
[2023-08-30] MEDS: ASPIRIN 81 MG PO SCH (09:38)
[2023-08-30] MEDS: APIXABAN 5 MG TAB PO SCH ×2 (09:38→20:37)
[2023-08-30] MEDS: METOPROLOL TARTRATE 12.5 MG TAB PO SCH ×2 (09:38→20:37)
--- NOTE | 2023-08-30 10:06 | P.GSCN ---
History of Present Illness Consult date: 08/30/23 Reason for Consult: Known to our service from recent surgery Requesting physician: Erwin Whitehead History of present illness: This is a 73-year-old gentleman who follows outpatient with Dr. Holloway for primary care and Dr. Higuera for cardiology. He has a previous medical history of coronary artery disease/unstable angina as well as severe mitral regurgitation status post three-vessel CABG and complex mitral valve repair on 07/27/23, hypertension, hyperlipidemia, abdominal aortic aneurysm, chronic ongoing tobacco dependence, moderate restrictive lung disease, GERD, depression, paroxysmal atrial fibrillation with bradycardia/sick sinus syndrome status post permanent pacemaker. This gentleman was hospitalized here at [facility] at the end of June with complaints of shortness of breath, chest tightness, lightheadedness. He underwent echocardiogram at that time demonstrating normal left ventricular size and function with EF 55-60%, severe mitral regurgitation and moderate tricuspid regurgitation. He also had a heart catheterization demonstrating severe triple-vessel coronary artery disease. Consultation was placed to Dr. Mcintosh who recommended and proceeded with coronary artery bypass surgery along with mitral valve repair on July 27. During his postoperative course he did express bradycardia with paroxysmal atrial fibrillation and permanent pacemaker was placed. Once stabilized he was discharged to home with home care on postoperative day #11. He did follow-up last week in the office with Dr. Mcintosh. 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 Apparently he was started on a secondary diuretic a few days ago and has since lost a few pounds, however he also developed hypotension and felt weak with generalized fatigue. Due to these feelings the patient reported to [facility] emergency room last night for evaluation and treatment. Chest x-ray completed demonstrated a moderate left-sided pleural effusion and pulmonary vascular congestion. Lab work revealed WBC 6.0, hemoglobin 9.2, INR 1.2, sodium 131, BUN 26, creatinine 1.12, BNP 1700, and mild troponin elevation at 0.05 which is expected after open heart surgery. The patient was given a fluid bolus with improvement in his blood pressure. He was admitted for eval uation and treatment with consultation placed to cardiology and cardiothoracic surgery. Review of Systems Review of systems was completed and was negative except as noted - Constitutional Reports fatigue, Reports weakness - Cardiovascular Cardiovascular Comment(s): Low blood pressure Past Medical History Past Medical History: Atrial Fibrillation, Coronary Artery Disease (CAD), GERD/Reflux, Hyperlipidemia, Hypertension, Renal Disease Additional Past Medical History / Comment(s): Mitral regurgitation; abdominal aortic aneurysm History of Any Multi-Drug Resistant Organisms: None Reported Past Surgical History: Coronary Bypass/CABG, Heart Catheterization, Hernia Repair Additional Past Surgical History / Comment(s): three-vessel CABG with mitral valve repair 07/27/2023 Past Anesthesia/Blood Transfusion Reactions: No Reported Reaction Type of Cardiac Device: Permanent Pacemaker Device Placement Date:: 08/03/2023 Medtronic Past Psychological History: Depression Smoking Status: Current every day smoker Past Alcohol Use History: None Reported Additional Past Alcohol Use History / Comment(s): STARTED SMOKING AT AGE 15 QUIT ON AND OFF AND CURRENTLY SMOKING , SMOKES 1 PPD Past Drug Use History: None Reported - Past Family History Father Family Medical History: Myocardial Infarction ([place]) Additional Family Medical History / Comment(s): at age 90 from a myocardial infarction Medications and Allergies Home Medications Medication Instructions Recorded Confirmed Type Citalopram Hydrobromide [CeleXA] 20 mg PO DAILY 03/07/18 08/29/23 History Cholecalciferol [Vitamin D3 (25 50 mcg PO DAILY 12/11/21 08/29/23 History Mcg = 1000 Iu)] Omeprazole Magnesium [PriLOSEC] 20 mg PO DAILY 12/11/21 08/29/23 History Acetaminophen Tab [Tylenol] 650 mg PO Q4HR PRN tab 08/08/23 08/29/23 Rx Apixaban [Eliquis] 5 mg PO BID #60 tab 08/08/23 08/29/23 Rx Aspirin 81 mg PO DAILY #30 tab 08/08/23 08/29/23 Rx Atorvastatin [Lipitor] 40 mg PO HS #30 tab 08/08/23 08/29/23 Rx Losartan [Cozaar] 25 mg PO DAILY@1200 #30 tab 08/08/23 08/29/23 Rx Melatonin 6 mg PO HS PRN tab 08/08/23 08/29/23 Rx Metoprolol Tartrate [Lopressor] 12.5 mg PO BID #60 tab 08/08/23 08/29/23 Rx Nicotine 14Mg/24Hr Patch [Habitrol] 1 patch TRANSDERM DAILY #30 patch 08/08/23 08/29/23 Rx Furosemide [Lasix] 40 mg PO DAILY #30 tablet 08/12/23 08/29/23 Rx Potassium Chloride ER [K-Dur 10] 10 meq PO DAILY #30 tab 08/12/23 08/29/23 Rx Ascorbic Acid [Vitamin C] 500 mg PO DAILY@1200 08/29/23 08/29/23 History Doxycycline Hyclate 100 mg PO BID 08/29/23 08/29/23 History Ferrous Sulfate [Iron (65 MG 325 mg PO BID 08/29/23 08/29/23 History Elemental)] Sennosides-Docusate Sodium 2 tab PO HS PRN 08/29/23 08/29/23 History [Senokot-S] clonazePAM [KlonoPIN] 0.5 mg PO HS 08/29/23 08/29/23 History metOLazone [Zaroxolyn] 2.5 mg PO MOWEFR 08/29/23 08/29/23 History Allergies Allergy/AdvReac Type Severity Reaction Status Date / Time No Known Allergies Allergy Verified 08/29/23 22:44 Surgical - Exam Vital Signs Temp Pulse Resp BP Pulse Ox 97.6 F 72 18 84/51 96 08/29/23 20:55 08/29/23 20:55 08/29/23 20:55 08/29/23 20:55 08/29/23 20:55 CONSTITUTIONAL: Sleepy but does arouse, appears comfortable, cooperative, well- developed, well-nourished, no pain, no acute distress EYES: Pupils equal, round, reactive to light, normal ocular movement ENT: Moist mucous membranes without oral lesions present NECK: No masses, no bruits, trachea midline RESPIRATORY: Lungs sounds diminished on the left. Respirations even, n onlabored. Currently on 2 L nasal cannula with oxygen saturation 100%. Strong harsh cough CARDIOVASCULAR: S1, S2 present. Regular rate and rhythm, ventricular paced on telemetry. Sternum stable. Palpable peripheral pulses bilaterally. No edema present. No calf pain or tenderness noted. GASTROINTESTINAL: Abdomen soft, nontender, nondistended without masses or organomegaly noted. There is no rebound or guarding present. Active bowel sounds present 4 quadrants. GENITOURINARY: Deferred INTEGUMENTARY: Skin is warm and dry with evidence of good perfusion. Anterior chest incision well healed without redness or drainage NEUROLOGIC: Cranial nerves II through XII intact, normal coordination, no obvious motor or sensory deficits, speech is normal MUSKULOSKELETAL: Able to move all extremities, strength equal bilaterally, normal posture PSYCHIATRIC: Alert and oriented to person place and time, appropriate affect, intact judgment and insight Results - Labs 08/29/23 21:35 08/29/23 21:35 Abnormal Lab Results - Last 24 Hours (Table) 08/29/23 08/29/23 08/29/23 Range/Units 21:35 21:35 21:35 RBC 2.91 L (4.30-5.90) m/uL Hgb 9.2 L (13.0-17.5) gm/dL Hct 30.9 L (39.0-53.0) % MCV 106.3 H (80.0-100.0) fL MCHC 29.8 L (31.0-37.0) g/dL RDW 17.6 H (11.5-15.5) % Lymphocytes # 0.8 L (1.0-4.8) k/uL Macrocytosis Marked A PT 12.4 H (9.0-12.0) sec INR 1.2 H (<1.2) Sodium 131 L (137-145) mmol/L Chloride 94 L (98-107) mmol/L BUN 26 H (9-20) mg/dL Troponin I (0.000-0.034) ng/mL Total Protein 6.2 L (6.3-8.2) g/dL Albumin 3.1 L (3.5-5.0) g/dL 08/29/23 08/30/23 08/30/23 Range/Units 21:35 03:47 07:50 RBC (4.30-5.90) m/uL Hgb (13.0-17.5) gm/dL Hct (39.0-53.0) % MCV (80.0-100.0) fL MCHC (31.0-37.0) g/dL RDW (11.5-15.5) % Lymphocytes # (1.0-4.8) k/uL Macrocytosis PT (9.0-12.0) sec INR (<1.2) Sodium (137-145) mmol/L Chloride (98-107) mmol/L BUN (9-20) mg/dL Troponin I 0.056 H* 0.046 H* 0.042 H* (0.000-0.034) ng/mL Total Protein (6.3-8.2) g/dL Albumin (3.5-5.0) g/dL Diabetes panel 08/29/23 Range/Units 21:35 Sodium 131 L (137-145) mmol/L Potassium 3.6 (3.5-5.1) mmol/L Chloride 94 L (98-107) mmol/L Carbon Dioxide 29 (22-30) mmol/L BUN 26 H (9-20) mg/dL Creatinine 1.12 (0.66-1.25) mg/dL Glucose 93 (74-99) mg/dL Calcium 8.5 (8.4-10.2) mg/dL AST 37 (17-59) U/L ALT 22 (4-49) U/L Alkaline Phosphatase 85 (38-126) U/L Total Protein 6.2 L (6.3-8.2) g/dL Albumin 3.1 L (3.5-5.0) g/dL Calcium panel 08/29/23 Range/Units 21:35 Calcium 8.5 (8.4-10.2) mg/dL Albumin 3.1 L (3.5-5.0) g/dL Pituitary panel 08/29/23 Range/Units 21:35 Sodium 131 L (137-145) mmol/L Potassium 3.6 (3.5-5.1) mmol/L Chloride 94 L (98-107) mmol/L Carbon Dioxide 29 (22-30) mmol/L BUN 26 H (9-20) mg/dL Creatinine 1.12 (0.66-1.25) mg/dL Glucose 93 (74-99) mg/dL Calcium 8.5 (8.4-10.2) mg/dL Adrenal panel 08/29/23 Range/Units 21:35 Sodium 131 L (137-145) mmol/L Potassium 3.6 (3.5-5.1) mmol/L Chloride 94 L (98-107) mmol/L Carbon Dioxide 29 (22-30) mmol/L BUN 26 H (9-20) mg/dL Creatinine 1.12 (0.66-1.25) mg/dL Glucose 93 (74-99) mg/dL Calcium 8.5 (8.4-10.2) mg/dL Total Bilirubin 1.0 (0.2-1.3) mg/dL AST 37 (17-59) U/L ALT 22 (4-49) U/L Alkaline Phosphatase 85 (38-126) U/L Total Protein 6.2 L (6.3-8.2) g/dL Albumin 3.1 L (3.5-5.0) g/dL - Imaging Chest x-ray: report reviewed, image reviewed EKG: image reviewed Assessment and Plan Assessment: Hypotension, resolved Generalized weakness, fatigue Left pleural effusion History of coronary artery disease/unstable angina as well as severe mitral regurgitation status post three-vessel CABG and complex mitral valve repair on 07/27/23 Hypertension Hyperlipidemia Abdominal aortic aneurysm Chronic ongoing tobacco dependence Moderate restrictive lung disease GERD Depression Paroxysmal atrial fibrillation with bradycardia/sick sinus syndrome status post permanent pacemaker placement 08/03/23 Plan: The patient was seen and examined laying on the cart in the emergency room in no acute distress resting comfortably. Chart/diagnostics reviewed. Case will be discussed with Dr. Avery. Recommend continuing current medication therapy, appreciate cardiology recommendations. Left pleural effusion is being watched by pulmonology who will determine if/when patient needs thoracentesis. Patient's respiratory status is stable. Incentive spirometry ordered and should be encouraged. Patient should shower daily. PT/OT consulted. Increase activity as tolerated. Continue sternal precautions for another [address] cardiac surgery discharge instructions on the discharge plan. Management per internal medicine, cardiology. From cardiothoracic surgery standpoint patient to be discharged back to home with home care whenever okay with other services. Please call us with any further questions. I have personally seen and examined the patient, performed the documentation and the assessment and plan as written. Number of minutes spent on the visit: 30. VANDANA Wilcox Pt seen and evaluated with WOOD DRILL OPERATOR above. Agree with her assessment and plan. I spent 35 minutes reviewing the data and going over the plan of care with the patient. Time with Patient: Greater than 30
--- NOTE | 2023-08-30 10:18 | P.CRDCN ---
History of Present Illness History of present illness: HISTORY OF PRESENT ILLNESS: This is a 73-year-old male with a past medical history significant for coronary artery disease with 3 vessel CABG, mitral valve repair, tricuspid valve repair in July 2023, atrial fibrillation, permanent pacemaker implantation, hyper tension, and hyperlipidemia, . Patient follows in the office with Dr. Higuera. We have been asked to see the patient in consultation for congestive heart failure and hypotension. Patient examined at the bedside in the emergency room. Patient presented to the hospital with a chief complaint of generalized weakness and hypotension. The patient states he was started on a second diuretic within the past week. The patient currently denies any chest pain or pressure. He denies any shortness of breath at the time of examination. He is laying comfortably in bed. He has been receiving IV fluids with improvement in his blood pressure. * EKG reveals paced rhythm * Chest xray moderate left pleural effusion. Trace right pleural effusion. Pulmonary vascular congestion. Cardiomegaly. * Current home cardiac medications include Eliquis 5mg BID, aspirin 81 mg daily, Lipitor 40 mg at night, Lasix 40 mg daily, losartan 25 mg daily, metoprolol tartrate 12.5 mg twice a day, and Zaroxolyn 2.5 mg Tuesday * Most recent echocardiogram obtained in July 2023 revealing ejection fraction 50-55% with mild aortic stenosis REVIEW OF SYSTEMS: At the time of my exam: CONSTITUTIONAL: Denies fever or chills. HEENT: Denies blurred vision, vision changes, or eye pain. Denies hemoptysis CARDIOVASCULAR: Denies chest pain. Denies orthopnea. Denies PND. Denies palpitations RESPIRATORY: Denies shortness of breath. GASTROINTESTINAL: Denies abdominal pain. Denies nausea or vomiting. HEMATOLOGIC: Denies bleeding disorders. GENITOURINARY: Denies any blood in urine. SKIN: Denies pruitis. Denies rash. PHYSICAL EXAM: VITAL SIGNS: Reviewed. GENERAL: Well-developed in no acute distress. HEENT: Head is normocephalic. Pupils are equal, round. Sclerae anicteric. Mucous membranes of the mouth are moist. Neck supple. No JVD or thyromegaly LUNGS: Respirations even and unlabored. Lungs essentially clear to auscultation bilaterally, diminished. HEART: Regular rate and rhythm. S1 and S2 heard. ABDOMEN: Soft. Nondistended. Nontender. EXTREMITIES: Normal range of motion. No clubbing or cyanosis. Peripheral pulses intact. No lower extremity edema NEUROLOGIC: Awake and alert. Oriented x 3. ASSESSMENT: Generalized weakness Hypotension Coronary artery disease with recent 3 vessel CABG, MV repair, TV repair, Sep 2022 Paroxysmal atrial fibrillation History of permanent pacemaker implantation History of hypertension History of hyperlipidemia PLAN: Resume home cardiac medications Hold home dose of losartan Hold Lasix for today. Resume starting tomorrow morning Resume Zaroxolyn. However decrease dosing to 2 days a week instead of 3; Tuesday and . First dose to begin this . Continue to monitor blood pressure Further recommendations pending patient's course Nurse practitioner note has been reviewed by physician. Signing provider agrees with the documented findings, assessment, and plan of care. Past Medical History Past Medical History: Atrial Fibrillation, Coronary Artery Disease (CAD), GE RD/Reflux, Hyperlipidemia, Hypertension, Renal Disease Additional Past Medical History / Comment(s): Mitral regurgitation; abdominal aortic aneurysm History of Any Multi-Drug Resistant Organisms: None Reported Past Surgical History: Coronary Bypass/CABG, Heart Catheterization, Hernia Repair Additional Past Surgical History / Comment(s): three-vessel CABG with mitral valve repair 07/27/2023 Past Anesthesia/Blood Transfusion Reactions: No Reported Reaction Type of Cardiac Device: Permanent Pacemaker Device Placement Date:: 08/03/2023 [employer]tr[employer] Past Psychological History: Depression Smoking Status: Current every day smoker Past Alcohol Use History: None Reported Additional Past Alcohol Use History / Comment(s): STARTED SMOKING AT AGE 15 QUIT ON AND OFF AND CURRENTLY SMOKING , SMOKES 1 PPD Past Drug Use History: None Reported - Past Family History Father Family Medical History: Myocardial Infarction ([place]) Additional Family Medical History / Comment(s): at age 90 from a myocardial infarction Medications and Allergies Home Medications Medication Instructions Recorded Confirmed Type Citalopram Hydrobromide [CeleXA] 20 mg PO DAILY 03/07/18 08/29/23 History Cholecalciferol [Vitamin D3 (25 50 mcg PO DAILY 12/11/21 08/29/23 History Mcg = 1000 Iu)] Omeprazole Magnesium [PriLOSEC] 20 mg PO DAILY 12/11/21 08/29/23 History Acetaminophen Tab [Tylenol] 650 mg PO Q4HR PRN tab 08/08/23 08/29/23 Rx Apixaban [Eliquis] 5 mg PO BID #60 tab 08/08/23 08/29/23 Rx Aspirin 81 mg PO DAILY #30 tab 08/08/23 08/29/23 Rx Atorvastatin [Lipitor] 40 mg PO HS #30 tab 08/08/23 08/29/23 Rx Losartan [Cozaar] 25 mg PO DAILY@1200 #30 tab 08/08/23 08/29/23 Rx Melatonin 6 mg PO HS PRN tab 08/08/23 08/29/23 Rx Metoprolol Tartrate [Lopressor] 12.5 mg PO BID #60 tab 08/08/23 08/29/23 Rx Nicotine 14Mg/24Hr Patch [Habitrol] 1 patch TRANSDERM DAILY #30 patch 08/08/23 08/29/23 Rx Furosemide [Lasix] 40 mg PO DAILY #30 tablet 08/12/23 08/29/23 Rx Potassium Chloride ER [K-Dur 10] 10 meq PO DAILY #30 tab 08/12/23 08/29/23 Rx Ascorbic Acid [Vitamin C] 500 mg PO DAILY@1200 08/29/23 08/29/23 History Doxycycline Hyclate 100 mg PO BID 08/29/23 08/29/23 History Ferrous Sulfate [Iron (65 MG 325 mg PO BID 08/29/23 08/29/23 History Elemental)] Sennosides-Docusate Sodium 2 tab PO HS PRN 08/29/23 08/29/23 History [Senokot-S] clonazePAM [KlonoPIN] 0.5 mg PO HS 08/29/23 08/29/23 History metOLazone [Zaroxolyn] 2.5 mg PO MOWEFR 08/29/23 08/29/23 History Allergies Allergy/AdvReac Type Severity Reaction Status Date / Time No Known Allergies Allergy Verified 08/29/23 22:44 Physical Exam Vitals: Vital Signs Temp Pulse Resp BP Pulse Ox 08/30/23 06:00 59 L 20 102/60 98 08/30/23 04:00 59 L 21 110/61 98 08/30/23 02:00 62 20 104/60 97 08/30/23 01:30 61 20 106/56 100 08/30/23 01:00 60 22 93/52 100 08/30/23 00:30 60 20 101/54 98 08/30/23 00:00 59 L 20 91/55 99 08/29/23 23:00 60 20 75/47 97 08/29/23 22:48 59 L 16 79/49 98 08/29/23 20:55 97.6 F 72 18 84/51 96 Intake and Output 08/29/23 08/30/23 08/30/23 22:59 06:59 14:59 Other: Weight 68.039 kg Results 08/29/23 21:35 08/29/23 21:35 Cardiac Enzymes 08/29/23 08/29/23 08/30/23 Range/Units 21:35 21:35 03:47 AST 37 (17-59) U/L Troponin I 0.056 H* 0.046 H* (0.000-0.034) ng/mL 08/30/23 Range/Units 07:50 AST (17-59) U/L Troponin I 0.042 H* (0.000-0.034) ng/mL Coagulation 08/29/23 Range/Units 21:35 PT 12.4 H (9.0-12.0) sec APTT 26.1 (22.0-30.0) sec CBC 08/29/23 Range/Units 21:35 WBC 6.0 (3.8-10.6) k/uL RBC 2.91 L (4.30-5.90) m/uL Hgb 9.2 L (13.0-17.5) gm/dL Hct 30.9 L (39.0-53.0) % Plt Count 177 (150-450) k/uL Comprehensive Metabolic Panel 08/29/23 Range/Units 21:35 Sodium 131 L (137-145) mmol/L Potassium 3.6 (3.5-5.1) mmol/L Chloride 94 L (98-107) mmol/L Carbon Dioxide 29 (22-30) mmol/L BUN 26 H (9-20) mg/dL Creatinine 1.12 (0.66-1.25) mg/dL Glucose 93 (74-99) mg/dL Calcium 8.5 (8.4-10.2) mg/dL AST 37 (17-59) U/L ALT 22 (4-49) U/L Alkaline Phosphatase 85 (38-126) U/L Total Protein 6.2 L (6.3-8.2) g/dL Albumin 3.1 L (3.5-5.0) g/dL Current Medications Generic Name Dose Route Start Last Admin Trade Name Freq PRN Reason Stop Dose Admin Apixaban 5 mg 08/30/23 09:00 08/30/23 09:38 Apixaban 5 Mg Tab PO 5 mg BID ANCA Administration Protocol Aspirin 81 mg 08/30/23 09:00 08/30/23 09:38 Aspirin 81 Mg PO 81 mg DAILY ANCA Administration Atorvastatin Calcium 40 mg 08/30/23 21:00 Atorvastatin 40 Mg Tab PO HS ANCA Furosemide 40 mg 08/31/23 09:00 Furosemide 40 Mg Tab PO DAILY ANCA Sodium Chloride 1,000 mls @ 75 mls/hr 08/29/23 23:59 08/30/23 00:44 Saline 0.9% IV 08/30/23 13:18 75 mls/hr .[id number] STA Administration Sodium Chloride 1,000 mls @ 75 mls/hr 08/30/23 01:15 08/30/23 01:33 Saline 0.9% IV Not Given .[id number] ANCA Metolazone 2.5 mg 09/01/23 09:00 Metolazone 2.5 Mg Tab PO MOTH ANCA Metoprolol Tartrate 12.5 mg 08/30/23 09:00 08/30/23 09:38 Metoprolol Tartrate 12.5 Mg Tab PO 12.5 mg BID ANCA Administration Naloxone HCl 0.2 mg 08/30/23 01:03 Naloxone 0.4 Mg/Ml 1 Ml Vial IV Q2M PRN Opioid Reversal Ondansetron HCl 4 mg 08/30/23 01:03 Ondansetron 4 Mg/2 Ml Vial IVP Q8HR PRN Nausea And Vomiting Intake and Output 08/29/23 08/30/23 08/30/23 22:59 06:59 14:59 Other: Weight 68.039 kg 08/29/23 21:35 08/29/23 21:35
--- NOTE | 2023-08-30 17:33 | CA ---
Transthoracic Echo Report Name: Francisco Lucio Age: 73 Gender: M : 1950 Exam Date: 08/30/2023 14:55 Exam Location: [facility] Ht (in): 64 Wt (lb): 150 Ordering Physician: Mary Crystal Attending/Referring Phys: [id number], Bonilla Lens Grinding Machine Operator Josey Ramos RDCS Procedure CPT: Indications: LV func tion Cardiac Hx: CABG, AICD Technical Quality: Fair Contrast 1: Total Dose (mL): Contrast 2: Total Dose (mL): MEASUREMENTS (Male / Female) Normal Values 2D ECHO LV Diastolic Diameter PLAX 4.2 cm 4.2 - 5.9 / 3.9 - 5.3 cm LV Systolic Diameter PLAX 2.6 cm IVS Diastolic Thickness 1.5 cm 0.6 - 1.0 / 0.6 - 0.9 cm LVPW Diastolic Thickness 1.2 cm 0.6 - 1.0 / 0.6 - 0.9 cm LV Relative Wall Thickness 0.6 RV Internal Dim ED PLAX 3.1 cm LVOT Diameter 2.2 cm LA Systolic Diameter LX 3.9 cm 3.0 - 4.0 / 2.7 - 3.8 cm LV Diastolic Volume MOD BP 67.0 cm??? 67 - 155 / 56 - 104 cm??? LV Systolic Volume MOD BP 23.8 cm??? 22 - 58 / 19 - 49 cm??? LV Ejection Fraction MOD BP 64.5 % >= 55 % LV Cardiac Index MOD BP 1566.4 cm???/min???m??? LV Diastolic Volume MOD 4C 73.5 cm??? LV Systolic Volume MOD 4C 33.6 cm??? LV Ejection Fraction MOD 4C 54.2 % LV Cardiac Index MOD 4C 1443.6 cm???/min???m??? LV Diastolic Length 4C 7.4 cm LV Systolic Length 4C 6.9 cm LV Diastolic Volume MOD 2C 59.2 cm??? LV Systolic Volume MOD 2C 16.7 cm??? LV Ejection Fraction MOD 2C 71.8 % LV Cardiac Index MOD 2C 1538.6 cm???/min???m??? LV Diastolic Length 2C 7.7 cm LV Systolic Length 2C 7.2 cm LA Volume 68.1 cm??? 18 - 58 / 22 - 52 cm??? LA Volume Index 38.6 cm???/m??? 16 - 28 cm???/m??? M-MODE Aortic Root Diameter MM 2.6 cm MV E Point Septal Separation 1.2 cm AV Cusp Separation MM 1.6 cm DOPPLER AV Peak Velocity 215.8 cm/s AV Peak Gradient 18.6 mmHg AV Mean Velocity 141.5 cm/s AV Mean Gradient 9.2 mmHg AV Velocity Time Integral 46.3 cm LVOT Peak Velocity 120.1 cm/s LVOT Peak Gradient 5.8 mmHg AV Area Cont Eq pk 2.1 cm??? MV Area PHT 3.6 cm??? MV Deceleration Time 216.1 ms TR Peak Velocity 8.6 cm/s TR Peak Gradient 0.0 mmHg FINDINGS Left Ventricle Left ventricular ejection fraction is estimated at 50-55 %. Left ventricular cavity size normal. Moderately increased septal wall thickness. Right Ventricle Reduced right ventricular global systolic function. Normal right ventricular size. Unable to estimate the right ventricular systolic pressure. Right Atrium Normal right atrial size. Left Atrium Mildly increased left atrial volume. Mildly increased left atrial area. Mitral Valve Structurally normal mitral valve. Mild mitral annular calcification. Aortic Valve Trileaflet aortic valve. No aortic valve stenosis or regurgitation. Tricuspid Valve Structurally normal tricuspid valve. No tricuspid regurgitation. Pulmonic Valve Pulmonic valve not well visualized. Pericardium No pericardial effusion. Aorta Normal size aortic root and proximal ascending aorta. CONCLUSIONS LVH with preserved LV systolic function Previewed by: Dr. Frank Smith MD (Electronically Signed) Final Date: 30 August 2023 17:33
[2023-08-30] MEDS: ATORVASTATIN 40 MG TAB PO SCH (20:37)
--- NOTE | 2023-08-30 21:51 | P.HPIM ---
History of Present Illness H&P Date: 08/30/23 Chief Complaint: Generalized weakness Patient is a 73-year-old male with a past medical history of recent CABG with three-vessel, complex mitral valve repair with reconstruction, tricuspid valve repair, excision of left atrial appendage on 07/27/2023, atrial fibrillation on an ticoagulation with Eliquis, permanent pacemaker placement on 08/03/2023, hypertension, hyperlipidemia, currently everyday smoker and depression presents to ER with complaints of generalized weakness and found to be hypotensive in the ER. Patient was discharged home on 08/08/2023. Patient was started on secondary tick about a week ago. Otherwise patient denies any complaints of chest pain. No complaints of worsening leg swelling. No cough or sputum production. No fever no chills. Chest x-ray showed moderate left pleural effusion. Trace right pleural effusion. Pulmonary vascular congestion. Cardiomegaly. Correlate for CHF. EKG showed electronic ventricular paced rhythm. Laboratory data showed WBC 6.0 hemoglobin 9.2 and platelets 177 Sodium 131 potassium 3.6 chloride 94, bicarb 29 and BUN 26 and creatinine 1.12 Magnesium 1.9 Troponin 0.056, 0.046 and 0.042, proBNP 1700 and albumin 3.1. On admission blood pressure was 84/51 pulse 72 respiration 18 and pulse ox 96% on room air. Review of Systems Constitutional: Patient denies any fever or chills . Generalized weakness and fatigue.. Abdomen: Patient denied any nausea or vomiting or abd. pain Cardiovascular: Patient denies any chest pain or short of breath no palpitations. Respiratory: patient denied any cough . no sputum production. No shortness of breath Neurologic: Patient denied any numbness or tingling headache. Musculoskeletal: Patient denies any complaints of joint swelling or deformity. Skin: Negative Psychiatric: Negative Endocrine: No heat or cold intolerance. No recent weight gain. Genitourinary: No dysuria or hematuria. All other 14 point ROS negative except the above Past Medical History Past Medical History: Atrial Fibrillation, Coronary Artery Disease (CAD), GERD/Reflux, Hyperlipidemia, Hypertension, Renal Disease Additional Past Medical History / Comment(s): Mitral regurgitation; abdominal aortic aneurysm History of Any Multi-Drug Resistant Organisms: None Reported Past Surgical History: Coronary Bypass/CABG, Heart Catheterization, Hernia Repair Additional Past Surgical History / Comment(s): three-vessel CABG with mitral valve repair 07/27/2023 Past Anesthesia/Blood Transfusion Reactions: No Reported Reaction Type of Cardiac Device: Permanent Pacemaker Device Placement Date:: 08/03/2023 [employer] Past Psychological History: Depression Smoking Status: Current every day smoker Past Alcohol Use History: None Reported Additional Past Alcohol Use History / Comment(s): STARTED SMOKING AT AGE 15 QUIT ON AND OFF AND CURRENTLY SMOKING , SMOKES 1 PPD Past Drug Use History: None Reported - Past Family History Father Family Medical History: Myocardial Infarction ([place]) Additional Family Medical History / Comment(s): at age 90 from a myocardial infarction Medications and Allergies Home Medications Medication Instructions Recorded Confirmed Type Citalopram Hydrobromide [CeleXA] 20 mg PO DAILY 03/07/18 08/29/23 History Cholecalciferol [Vitamin D3 (25 50 mcg PO DAILY 12/11/21 08/29/23 History Mcg = 1000 Iu)] Omeprazole Magnesium [PriLOSEC] 20 mg PO DAILY 12/11/21 08/29/23 History Acetaminophen Tab [Tylenol] 650 mg PO Q4HR PRN tab 08/08/23 08/29/23 Rx Apixaban [Eliquis] 5 mg PO BID #60 tab 08/08/23 08/29/23 Rx Aspirin 81 mg PO DAILY #30 tab 08/08/23 08/29/23 Rx Atorvastatin [Lipitor] 40 mg PO HS #30 tab 08/08/23 08/29/23 Rx Losartan [Cozaar] 25 mg PO DAILY@1200 #30 tab 08/08/23 08/29/23 Rx Melatonin 6 mg PO HS PRN tab 08/08/23 08/29/23 Rx Metoprolol Tartrate [Lopressor] 12.5 mg PO BID #60 tab 08/08/23 08/29/23 Rx Nicotine 14Mg/24Hr Patch [Habitrol] 1 patch TRANSDERM DAILY #30 patch 08/08/23 08/29/23 Rx Furosemide [Lasix] 40 mg PO DAILY #30 tablet 08/12/23 08/29/23 Rx Potassium Chloride ER [K-Dur 10] 10 meq PO DAILY #30 tab 08/12/23 08/29/23 Rx Ascorbic Acid [Vitamin C] 500 mg PO DAILY@1200 08/29/23 08/29/23 History Doxycycline Hyclate 100 mg PO BID 08/29/23 08/29/23 History Ferrous Sulfate [Iron (65 MG 325 mg PO BID 08/29/23 08/29/23 History Elemental)] Sennosides-Docusate Sodium 2 tab PO HS PRN 08/29/23 08/29/23 History [Senokot-S] clonazePAM [KlonoPIN] 0.5 mg PO HS 08/29/23 08/29/23 History metOLazone [Zaroxolyn] 2.5 mg PO MOWEFR 08/29/23 08/29/23 History Allergies Allergy/AdvReac Type Severity Reaction Status Date / Time No Known Allergies Allergy Verified 08/29/23 22:44 Physical Exam Vitals: Vital Signs Temp Pulse Resp BP Pulse Ox 08/30/23 06:00 59 L 20 102/60 98 08/30/23 04:00 59 L 21 110/61 98 08/30/23 02:00 62 20 104/60 97 08/30/23 01:30 61 20 106/56 100 08/30/23 01:00 60 22 93/52 100 08/30/23 00:30 60 20 101/54 98 08/30/23 00:00 59 L 20 91/55 99 08/29/23 23:00 60 20 75/47 97 08/29/23 22:48 59 L 16 79/49 98 08/29/23 20:55 97.6 F 72 18 84/51 96 Intake and Output 08/29/23 08/30/23 08/30/23 22:59 06:59 14:59 Other: Weight 68.039 kg PHYSICAL EXAMINATION: Patient is lying in the bed comfortably, no acute distress, awake alert and oriented.. HEENT: Normocephalic. Neck is supple. Pupils reactive. Nostrils clear. Oral cavity is moist. Neck reveals no JVD, carotid bruits, or thyromegaly. CHEST EXAMINATION: Trachea is central. Symmetrical expansion. Left basilar diminished sounds. No wheezing. Nonlabored breathing.. CARDIAC: Normal S1, S2 with no gallops. No murmurs ABDOMEN: Soft. Bowel sounds present. Nontender. No organomegaly. No abdominal bruits. Extremities: Bilateral trace edema. No clubbing or cyanosis Neurologically awake, alert, oriented x3 with well-coordinated movements. No focal deficits noted Skin: No rash or skin lesions. Psychiatric: Coperative. Nonsuicidal, Musculoskeletal: No joint swelling or deformity. Normal range of motion. Results CBC & Chem 7: 08/29/23 21:35 08/29/23 21:35 Labs: Abnormal Lab Results - Last 24 Hours (Table) 08/29/23 08/29/23 08/29/23 Range/Units 21:35 21:35 21:35 RBC 2.91 L (4.30-5.90) m/uL Hgb 9.2 L (13.0-17.5) gm/dL Hct 30.9 L (39.0-53.0) % MCV 106.3 H (80.0-100.0) fL MCHC 29.8 L (31.0-37.0) g/dL RDW 17.6 H (11.5-15.5) % Lymphocytes # 0.8 L (1.0-4.8) k/uL Macrocytosis Marked A PT 12.4 H (9.0-12.0) sec INR 1.2 H (<1.2) Sodium 131 L (137-145) mmol/L Chloride 94 L (98-107) mmol/L BUN 26 H (9-20) mg/dL Troponin I (0.000-0.034) ng/mL Total Protein 6.2 L (6.3-8.2) g/dL Albumin 3.1 L (3.5-5.0) g/dL 08/29/23 08/30/23 08/30/23 Range/Units 21:35 03:47 07:50 RBC (4.30-5.90) m/uL Hgb (13.0-17.5) gm/dL Hct (39.0-53.0) % MCV (80.0-100.0) fL MCHC (31.0-37.0) g/dL RDW (11.5-15.5) % Lymphocytes # (1.0-4.8) k/uL Macrocytosis PT (9.0-12.0) sec INR (<1.2) Sodium (137-145) mmol/L Chloride (98-107) mmol/L BUN (9-20) mg/dL Troponin I 0.056 H* 0.046 H* 0.042 H* (0.000-0.034) ng/mL Total Protein (6.3-8.2) g/dL Albumin (3.5-5.0) g/dL Thrombosis Risk Factor Assmnt - DVT/VTE Prophylaxis DVT/VTE Prophylaxis: Pharmacologic Prophylaxis ordered Assessment and Plan Assessment: Generalized weakness and hypotension likely due to intravascular volume depletion Moderate left pleural effusion and trace right pleural effusion Coronary artery disease status post triple-vessel CABG, mitral valve and aortic valve repair on 07/27/2023. Paroxysmal atrial fibrillation on anticoagulation with Eliquis Recent history of permanent pacemaker placement Hypertension Hyperlipidemia Depression Currently everyday smoker DVT prophylaxis patient is already on Eliquis Plan: Patient will be continued on telemetry monitoring. Was given IV hydration while in the ER. Currently Lasix is on hold for today and continued on metolazone. Continue with metoprolol and monitor blood pressure closely. Monitor renal function. Follow-up CBC and BMP tomorrow. Continue to follow closely. Cardiology is on board. Time with Patient: Greater than 30
[2023-08-31] MEDS: SODIUM CHLORIDE 0.9% 1,000 ML IV SCH (04:27)
[2023-08-31 09:49] LABS: ALT 21 U/L (4-49); AST 32 U/L (17-59); African American GFR (CKD) >90 (>60 ml/min/1.73 sqM); Alkaline Phosphatase 109 U/L (38-126); Anion Gap 8 mmol/L; Blood Urea Nitrogen 21 mg/dL (9-20); Calcium 8.5 mg/dL (8.4-10.2); Carbon Dioxide 29 mmol/L (22-30); Chloride 94 mmol/L (98-107); Globulin 2.9 g/dL; Glucose 84 mg/dL (74-99); Magnesium 1.9 mg/dL (1.6-2.3); Non-African American GFR(CKD) 84 (>60 ml/min/1.73 sqM); Phosphorus 3.2 mg/dL (2.5-4.5); Potassium 3.4 mmol/L (3.5-5.1); Sodium 131 mmol/L (137-145); Total Bilirubin 1.2 mg/dL (0.2-1.3); Total Protein 5.9 g/dL (6.3-8.2)
[2023-08-31] MEDS: ASPIRIN 81 MG PO SCH (09:51)
[2023-08-31] MEDS: METOPROLOL TARTRATE 12.5 MG TAB PO SCH ×2 (09:51→20:22)
[2023-08-31] MEDS: APIXABAN 5 MG TAB PO SCH ×2 (09:51→20:22)
[2023-08-31] MEDS: FUROSEMIDE 40 MG TAB PO SCH (09:51)
[2023-08-31 09:52] LABS: Anisocytosis Slight; Basophils % (A) 0 %; Eosinophils % (A) 0 %; HCT 29.1 % (39.0-53.0); HGB 8.7 gm/dL (13.0-17.5); Hypochromasia Marked; Lymphocytes # (A) 0.7 k/uL (1.0-4.8); Lymphocytes % (A) 13 %; MCH 31.5 pg (25.0-35.0); MCHC 29.8 g/dL (31.0-37.0); MCV 105.8 fL (80.0-100.0); Macrocytosis Marked; Mean Platelet Volume 8.7; Monocytes # (A) 0.3 k/uL (0-1.0); Monocytes % (A) 6 %; Neutrophils # (A) 3.9 k/uL (1.3-7.7); Neutrophils % (A) 78 %; Platelet Count 144 k/uL (150-450); Poikilocytosis Moderate; RBC 2.75 m/uL (4.30-5.90); RDW 16.8 % (11.5-15.5)
--- NOTE | 2023-08-31 10:02 | P.PN ---
Subjective HISTORY OF PRESENT ILLNESS: This is a 73-year-old male with a past medical history significant for coronary artery disease with 3 vessel CABG, mitral valve repair, tricuspid valve repair in July 2023, atrial fibrillation, permanent pacemaker implantation, hypertension, and hyperlipidemia, . Patient follows in the office with Dr. Higuera. We have been asked to see the patient in consultation for congestive heart failure and hypotension. Patient examined at the bedside in the emergency room. Patient presented to the hospital with a chief complaint of generalized weakness and hypotension. The patient states he was started on a second diuretic within the past week. The patient currently denies any chest pain or pressure. He denies any shortness of breath at the time of examination. He is laying comfortably in bed. He has been receiving IV fluids with improvement in his blood pressure. * EKG reveals paced rhythm * Chest xray moderate left pleural effusion. Trace right pleural effusion. Pulmonary vascular congestion. Cardiomegaly. * Current home cardiac medications include Eliquis 5mg BID, aspirin 81 mg daily, Lipitor 40 mg at night, Lasix 40 mg daily, losartan 25 mg daily, metoprolol tartrate 12.5 mg twice a day, and Zaroxolyn 2.5 mg Tuesday * Most recent echocardiogram obtained in July 2023 revealing ejection fraction 50-55% with mild aortic stenosis 08/31/2023 Patient examined this morning. He is sitting up in a chair. He denies chest pain or pressure. He denies shortness of breath. Vital signs are stable. PHYSICAL EXAM: VITAL SIGNS: Reviewed. GENERAL: Well-developed in no acute distress. HEENT: Head is normocephalic. Pupils are equal, round. Sclerae anicteric. Mucous membranes of the mouth are moist. Neck supple. No JVD or thyromegaly LUNGS: Respirations even and unlabored. Lungs essentially clear to auscultation bilaterally, diminished. HEART: Regular rate and rhythm. S1 and S2 heard. ABDOMEN: Soft. Nondistended. Nontender. EXTREMITIES: Normal range of motion. No clubbing or cyanosis. Peripheral pulses intact. No lower extremity edema NEUROLOGIC: Awake and alert. Oriented x 3. ASSESSMENT: Generalized weakness Hypotension, resolved Coronary artery disease with recent 3 vessel CABG, MV repair, TV repair, July 2023 Paroxysmal atrial fibrillation History of permanent pacemaker implantation History of hypertension History of hyperlipidemia PLAN: Resume home cardiac medications Hold home dose of losartan Lasix to resume this morning Resume Zaroxolyn. However decrease dosing to 2 days a week instead of 3; Tuesday and . First dose to begin this . Continue to monitor blood pressure Patient is stable for discharge home today from a cardiac standpoint Nurse practitioner note has been reviewed by physician. Signing provider agrees with the documented findings, assessment, and plan of care. Objective - Vital Signs Vital signs: Vital Signs Temp 98.1 F 08/31/23 07:01 Pulse 59 L 08/31/23 07:01 Resp 18 08/31/23 07:01 BP 109/64 08/31/23 07:01 Pulse Ox 93 L 08/31/23 07:01 FiO2 Intake & Output 08/30/23 08/31/23 08/31/23 18:59 06:59 18:59 Output Total 500 Balance -500 Weight 68.039 kg 67.727 kg Output: Urine 500 Other: Voiding Method Toilet - Labs CBC & Chem 7: 08/31/23 08:34 08/31/23 08:34 Labs: Abnormal Lab Results - Last 24 Hours (Table) 08/31/23 08/31/23 Range/Units 08:34 08:34 RBC 2.75 L (4.30-5.90) m/uL Hgb 8.7 L (13.0-17.5) gm/dL Hct 29.1 L (39.0-53.0) % MCV 105.8 H (80.0-100.0) fL MCHC 29.8 L (31.0-37.0) g/dL RDW 16.8 H (11.5-15.5) % Plt Count 144 L (150-450) k/uL Macrocytosis Marked A Sodium 131 L (137-145) mmol/L Potassium 3.4 L (3.5-5.1) mmol/L Chloride 94 L (98-107) mmol/L BUN 21 H (9-20) mg/dL Total Protein 5.9 L (6.3-8.2) g/dL Albumin 3.0 L (3.5-5.0) g/dL
[2023-08-31] MEDS ORDERED: Potassium Replacement Protocol 1 EACH MISC MISCELLANE PRN (10:49)
[2023-08-31] MEDS: POTASSIUM CHLORIDE ER 20 MEQ TAB.ER PO SCH ×4 (11:28→20:22)
[2023-08-31] MEDS: polyethylene glycoL 3350 17 GM POWD.PACK PO SCH (11:28)
[2023-08-31] MEDS: ATORVASTATIN 40 MG TAB PO SCH (20:22)
[2023-08-31] MEDS ORDERED: POTASSIUM CHLORIDE ER 20 MEQ TAB.ER PO STA (22:43)
--- NOTE | 2023-08-31 22:51 | P.PN ---
Subjective Patient is a 73-year-old male with a past medical history of recent CABG with three-vessel, complex mitral valve repair with reconstruction, tricuspid valve repair, excision of left atrial appendage on 07/27/2023, atrial fibrillation on anticoagulation with Eliquis, permanent pacemaker placement on 08/03/2023, hypertension, hyperlipidemia, currently everyday smoker and depression presents to ER with complaints of generalized weakness and found to be hypotensive in the ER. Patient was discharged home on 08/08/2023. Patient was started on secondary tick about a week ago. Otherwise patient denies any complaints of chest pain. No complaints of w orsening leg swelling. No cough or sputum production. No fever no chills. Chest x-ray showed moderate left pleural effusion. Trace right pleural effusion. Pulmonary vascular congestion. Cardiomegaly. Correlate for CHF. EKG showed electronic ventricular paced rhythm. Laboratory data showed WBC 6.0 hemoglobin 9.2 and platelets 177 Sodium 131 potassium 3.6 chloride 94, bicarb 29 and BUN 26 and creatinine 1.12 Magnesium 1.9 Troponin 0.056, 0.046 and 0.042, proBNP 1700 and albumin 3.1. On admission blood pressure was 84/51 pulse 72 respiration 18 and pulse ox 96% on room air. 08/31/2023 This is a pleasant 73 Malcolm old male with past medical history of triple-vessel coronary artery disease who underwent CABG about a month ago. Presents with generalized weakness and found to be hypotensive. On admission patient was hypotensive 75/47. Currently blood pressure 110/61 and 102/60 Discontinue IV fluids Continue with oral Lasix 40 mg daily Decreased frequency of metolazone to twice a week Continue with Eliquis and baby aspirin Cardiothoracic surgeon evaluated patient for discharge Cartilage fit patient for discharge with ejection fraction 50-55% Possible discharge 24-48 hours Objective - Vital Signs Vital signs: Vital Signs Temp 98.4 F 08/31/23 20:12 Pulse 69 08/31/23 20:12 Resp 19 08/31/23 20:12 BP 117/60 08/31/23 20:12 Pulse Ox 96 08/31/23 20:12 FiO2 Intake & Output 08/31/23 08/31/23 09/01/23 06:59 18:59 06:59 Output Total 500 Balance -500 Weight 67.727 kg Output: Urine 500 Other: Voiding Method Toilet # Voids 3 - Exam GENERAL: The patient is alert and oriented x3, not in any acute distress. Well developed, well nourished. HEENT: Pupils are round and equally reacting to light. EOMI. No scleral icterus. No conjunctival pallor. Normocephalic, atraumatic. No pharyngeal erythema. No thyromegaly. CARDIOVASCULAR: S1 and S2 present. No murmurs, rubs, or gallops. -PULMONARY: Chest is clear to auscultation, no wheezing , mild basal crepitation crackles. ABDOMEN: Soft, nontender, nondistended, normoactive bowel sounds. No palpable organomegaly. MUSCULOSKELETAL: No joint swelling or deformity. EXTREMITIES: No cyanosis, clubbing, or pedal edema. NEUROLOGICAL: Gross neurological examination did not reveal any focal deficits. SKIN: No rashes. no petechiae. -Get up and go test is normal - Labs CBC & Chem 7: 08/31/23 08:34 08/31/23 17:54 Labs: Abnormal Lab Results - Last 24 Hours (Table) 08/31/23 08/31/23 Range/Units 08:34 08:34 RBC 2.75 L (4.30-5.90) m/uL Hgb 8.7 L (13.0-17.5) gm/dL Hct 29.1 L (39.0-53.0) % MCV 105.8 H (80.0-100.0) fL MCHC 29.8 L (31.0-37.0) g/dL RDW 16.8 H (11.5-15.5) % Plt Count 144 L (150-450) k/uL Lymphocytes # 0.7 L (1.0-4.8) k/uL Macrocytosis Marked A Sodium 131 L (137-145) mmol/L Potassium 3.4 L (3.5-5.1) mmol/L Chloride 94 L (98-107) mmol/L BUN 21 H (9-20) mg/dL Total Protein 5.9 L (6.3-8.2) g/dL Albumin 3.0 L (3.5-5.0) g/dL Assessment and Plan Assessment: Generalized weakness and hypotension likely due to intravascular volume depletion Moderate left pleural effusion and trace right pleural effusion Coronary artery disease status post triple-vessel CABG, mitral valve and aortic valve repair on 07/27/2023. Paroxysmal atrial fibrillation on anticoagulation with Eliquis Recent history of permanent pacemaker placement Hypertension Hyperlipidemia Depression Currently everyday smoker Plan: Continue with diuretic with metolazone less frequently from 3 times a week down to twice a week Continue Lasix as ordered Hold losartan and patient informed and he is agreeable Cardiothoracic surgery to the patient for discharge Cardiology team also going to give the patient for discharge Labs and medication were reviewed.. Continue same treatment. Continue with symptomatic treatment. Resume home medication. Monitor labs and vitals. DVT and GI prophylaxis. Further recommendations as per clinical course of the patient DVT prophylaxis: Subcutaneous heparin GI Prophylaxis: Pepcid Prognosis is guarded Possible discharge in 24-48 hours
[2023-09-01] MEDS ORDERED: MELATONIN 5 MG TABLET PO PRN (00:33)
[2023-09-01] MEDS: SODIUM CHLORIDE 0.9% 1,000 ML IV SCH (00:53)
[2023-09-01] MEDS: METOPROLOL TARTRATE 12.5 MG TAB PO SCH (07:46)
[2023-09-01] MEDS: ASPIRIN 81 MG PO SCH (07:46)
[2023-09-01] MEDS: polyethylene glycoL 3350 17 GM POWD.PACK PO SCH (07:46)
[2023-09-01] MEDS: APIXABAN 5 MG TAB PO SCH (07:46)
[2023-09-01] MEDS: FUROSEMIDE 40 MG TAB PO SCH (07:46)
[2023-09-01] MEDS ORDERED: busPIRone HCl 10 MG TAB PO SCH (09:00)
[2023-09-01] MEDS ORDERED: metOLazone 2.5 MG TAB PO SCH (09:00)
[2023-09-01 09:34] VITALS: BP 105/62; PULSE 66; RESP 18; TEMP 97.9
--- NOTE | 2023-09-01 22:48 | P.DS ---
Providers Date of admission: 08/30/23 01:03 Attending physician: Aditya Castro Consults: 08/30/23 01:03 Consult Physician Routine Consulting Provider: Pura Mcintosh Consult Reason/Comments: known Do you want consulting provider notified?: Yes Consult Physician Routine Consulting Provider: Sis Higuera Consult Reason/Comments: chf,hypotn Do you want consulting provider notified?: Yes Primary care physician: Slim Holloway Hospital Course: Hospital course: Diagnoses: Generalized weakness and hypotension likely due to intravascular volume depletion Moderate left pleural effusion and trace right pleural effusion Coronary artery disease status post triple-vessel CABG, mitral valve and aortic valve repair on 07/27/2023. Paroxysmal atrial fibrillation on anticoagulation with Eliquis Recent history of permanent pacemaker placement Hypertension Hyperlipidemia Depression Currently everyday smoker Hospital course This is a pleasant 73 Malcolm old male with past medical history of triple-vessel coronary artery disease who underwent CABG about a month ago. Presents with generalized weakness and found to be hypotensive.On admission patient was hypotensive 75/47. Currently blood pressure 110/61 and 102/60 and improved. Patient's symptoms improved. He is back to baseline. Acute epiglottis is normal. Denies chest pain dyspnea. Patient tolerated by cardiology service and his losartan was discontinued and Zaroxolyn dose frequency prior to from 3 times down to 2 times per week while keeping Lasix 40 mg by mouth daily. Informed with this plan and he is agreeable. Patient also is a Eliquis for A. fib and he has this medication. Prescription for aspirin 81 mg has been provided for him. Risk and benefits of this medication and explained to the patient this extensively and he verbalized understanding and acceptance Patient denies any new symptoms. No new GI or urinary symptoms. Patient was cleared for discharge by vp marketing services and skin Problems and management plan were discussed with the patient and he verbalized understanding and acceptance Patient was found stable and can be discharged home in guarded prognosis however he needs follow-up as an outpatient. Patient was instructed to follow up with PCP Dr. Holloway within one week and patient agrees Patient was instructed to follow up with movie shot cameraman Dr. Ramirez in one week and vp marketing services and skin Dr. Pope in 1-2 weeks [address] surgeon [address] Merino as instructed by their team Physical exam Gen: patient is a AAOx3, no distress CVS: S1-S2, RRR, no murmur Lungs: B/L CTA, no wheezing Abdomen: soft, no distention, no tenderness, positive bowel sounds Extremity: no leg edema or induration Time spent more than 35 minutes Patient Condition at Discharge: Serious Plan - Discharge Summary Discharge Rx Participant: No New Discharge Prescriptions: New metOLazone [Zaroxolyn] 2.5 mg PO MOTH tab polyethylene glycoL 3350 [Miralax] 17 gm PO DAILY 3 Days #3 packet Continue Citalopram Hydrobromide [CeleXA] 20 mg PO DAILY Cholecalciferol [Vitamin D3 (25 Mcg = 1000 Iu)] 50 mcg PO DAILY Apixaban [Eliquis] 5 mg PO BID #60 tab Metoprolol Tartrate [Lopressor] 12.5 mg PO BID #60 tab Melatonin 6 mg PO HS PRN tab PRN Reason: Insomnia Acetaminophen Tab [Tylenol] 650 mg PO Q4HR PRN tab PRN Reason: Fever and/ or Mild Pain Furosemide [Lasix] 40 mg PO DAILY #30 tablet Ferrous Sulfate [Iron (65 MG Elemental)] 325 mg PO BID Ascorbic Acid [Vitamin C] 500 mg PO DAILY@1200 Omeprazole Magnesium [PriLOSEC] 20 mg PO DAILY Nicotine 14Mg/24Hr Patch [Habitrol] 1 patch TRANSDERM DAILY #30 patch Atorvastatin [Lipitor] 40 mg PO HS #30 tab Potassium Chloride ER [K-Dur 10] 10 meq PO DAILY #30 tab clonazePAM [KlonoPIN] 0.5 mg PO HS Sennosides-Docusate Sodium [Senokot-S] 2 tab PO HS PRN PRN Reason: Constipation Aspirin 81 mg PO DAILY 30 Days #30 tab Discontinued Doxycycline Hyclate 100 mg PO BID metOLazone [Zaroxolyn] 2.5 mg PO MOWEFR Losartan [Cozaar] 25 mg PO DAILY@1200 #30 tab Discharge Medication List Citalopram Hydrobromide [CeleXA] 20 mg PO DAILY 03/07/18 [History] Cholecalciferol [Vitamin D3 (25 Mcg = 1000 Iu)] 50 mcg PO DAILY 12/11/21 [History] Omeprazole Magnesium [PriLOSEC] 20 mg PO DAILY 12/11/21 [History] Acetaminophen Tab [Tylenol] 650 mg PO Q4HR PRN tab 08/08/23 [Rx] Apixaban [Eliquis] 5 mg PO BID #60 tab 09/18/23 [Rx] Atorvastatin [Lipitor] 40 mg PO HS #30 tab 08/08/23 [Rx] Melatonin 6 mg PO HS PRN tab 08/08/23 [Rx] Metoprolol Tartrate [Lopressor] 12.5 mg PO BID #60 tab 08/08/23 [Rx] Nicotine 14Mg/24Hr Patch [Habitrol] 1 patch TRANSDERM DAILY #30 patch 08/08/23 [Rx] Furosemide [Lasix] 40 mg PO DAILY #30 tablet 08/12/23 [Rx] Potassium Chloride ER [K-Dur 10] 10 meq PO DAILY #30 tab 08/12/23 [Rx] Ascorbic Acid [Vitamin C] 500 mg PO DAILY@1200 08/29/23 [History] Ferrous Sulfate [Iron (65 MG Elemental)] 325 mg PO BID 08/29/23 [History] Sennosides-Docusate Sodium [Senokot-S] 2 tab PO HS PRN 08/29/23 [History] clonazePAM [KlonoPIN] 0.5 mg PO HS 08/29/23 [History] Aspirin 81 mg PO DAILY 30 Days #30 tab 09/01/23 [Rx] metOLazone [Zaroxolyn] 2.5 mg PO MOTH tab 09/01/23 [Rx] polyethylene glycoL 3350 [Miralax] 17 gm PO DAILY 3 Days #3 packet 09/01/23 [Rx] Follow up Appointment(s)/Referral(s): Gomez Montes De Oca MD [STAFF PHYSICIAN] - 09/07/23 3:45 pm Sis Higuera MD [STAFF PHYSICIAN] - 09/21/23 1:45 pm ( ) [facility],Cardiac [NON-STAFF] - 4 Weeks (You will receive a phone call in approximately 4-6 weeks for evaluation for cardiac rehab) [facility] [[facility]FF[facility] - 1-2 Days (To continue to see at home until patient starts cardiac rehab) Pura Mcintosh MD [STAFF PHYSICIAN] - (Office will call for appointment at 3 months post surgery) Slim Holloway MD [Primary Care Provider] - 09/05/23 9:20 am Patient Instructions/Handouts: Heart Failure (DC), Pulmonary Edema (DC) Activity/Diet/Wound Care/Special Instructions: DISCHARGE INSTRUCTIONS: 1. No lifting, pushing, or pulling more than 10 pounds for 12 weeks. The physician will advise of any restriction changes. 2. The patient is expected to increase activity as tolerated 3. Continue pain control per as needed orders. 4. Continue with incentive spirometry 5. Must shower daily using liquid antibacterial soap 6. Routine sternal incision care. No powders, lotions, ointments on incisions 7. You should weigh yourself daily, record and bring log with you to follow up appointments. 8. Quitting smoking is the most important step you can take to improve your health. For additional information and assistance to quit smoking, please call the [place] tobacco quit line (7-901-LJTZ-NOW/ ) or online: [email or web address] HOME HEALTH SERVICES TO PROVIDE: RN SKILLED HOME CARE SERVICES FOR POST-OP SURGICAL PATIENTS WITH THE FOLLOWING: Coronary Artery Bypass Surgery (CABG), Mitral Valve Replacement/Repair ( MVR), Aortic Valve Replacement/Repair (AVR) RN TO CONTINUE EDUCATION FROM ``ROAD TO A HEALTH HEART PATIENT EDUCATION MANUAL (GIVEN TO PATIENT IN THE HOSPITAL) MEDICATION RECONCILIATION WITH EDUCATION NEEDED ON FIRST HOME VISIT EMPHASIZE IMPORTANCE OF WEARING BREAST SUPPORT/HEART HUGGER ENCOURAGE USE OF INCENTIVE SPIROMETER 10 X EVERY HOUR WHILE AWAKE ENCOURAGE UTILIZATION OF LOWER EXTREMITY COMPRESSION STOCKINGS/MARIYA HOSE and ELEVATE LEGS ABOVE LEVEL OF HEART WHILE AT REST. ENCOURAGE AMBULATION 3-5x/day INCREASING TOLERATES, WHILE AVOIDING EXTREMES IN TEMPERATURE FREQUENCY: RN TO OPEN THE PATIENT WITHIN 24 HOURS OF DISCHARGE FROM THE HOSPITAL WITH [place] [facility] [place]ISIT 2-3 X A WEEK FOR 4 WEEKS ESTABLISHED BY PATIENT NEEDS. TELEHEALTH PARAMETERS: WEIGHT: NOTIFY MD OF WEIGHT GAIN OF 2 LBS IN 24 HOURS OR 5 LBS IN ONE WEEK HR: NOTIFY MD OF HR <55 BPM OR HR>100 BPM BP: NOTIFY MD IF BP <90/55 OR BP>140/100 O2 SAT: NOTIFY MD IF PO2<93% ON ROOM AIR heart healthy diet activity is restricted till you see your doctor Discharge Disposition: HOME WITH HOME HEALTH SERVICES
== END 2023-09-01 10:43 | disposition home health service (06) | DRG 292 ==
LOC: EC 20:18 → 4SSUR 08-30 01:03
PROVIDERS: ADMIT Hospitalist; ATTEND Hospitalist
DX: I11.0 Hypertensive heart disease with heart failure (principal); I48.21 Permanent atrial fibrillation; I95.9 Hypotension, unspecified; E86.9 Volume depletion, unspecified; F32.A Depression, unspecified; I08.1 Rheumatic disorders of both mitral and tricuspid valves; R53.1 Weakness; E78.5 Hyperlipidemia, unspecified; I25.10 Atherosclerotic heart disease of native coronary artery without angina pectoris; I48.0 Paroxysmal atrial fibrillation; F17.210 Nicotine dependence, cigarettes, uncomplicated; I49.5 Sick sinus syndrome; D64.9 Anemia, unspecified; I50.9 Heart failure, unspecified; J98.4 Other disorders of lung; Z79.01 Long term (current) use of anticoagulants; K21.9 Gastro-esophageal reflux disease without esophagitis; Z87.19 Personal history of other diseases of the digestive system; Z95.0 Presence of cardiac pacemaker; Z95.1 Presence of aortocoronary bypass graft; Z82.49 Family history of ischemic heart disease and other diseases of the circulatory system; Z79.899 Other long term (current) drug therapy; Z79.82 Long term (current) use of aspirin
CPT/HCPCS: 36415; 71046; 80053; 83735; 83880; 84100; 84132; 84484; 85025; 85610; 85730; 93005; 93306; 96360; 96361; 99291

== ENCOUNTER 2023-09-14 19:37 | Inpatient (IN) | payer MEDICARE ==
--- NOTE | 2023-09-14 20:30 | ED ---
Recheck HPI - General Chief Complaint: Recheck/Abnormal Lab/Rx Stated Complaint: low hemoglobin Time Seen by Provider: 09/14/23 20:09 Source: patient, RN notes reviewed, old records reviewed Mode of arrival: wheelchair Limitations: no limitations - History of Present Illness Initial Comments: This is a 73-year-old male to the emergency department for evaluation. Patient presents today for evaluation weakness persistent weakness here in the emergency room. Patient was sent to the ER for outpatient lab abnormalities hemoglobin 6.9 MD Complaint: abnormal lab -: hour(s) Returns Today for: Called Because of Abnormal Lab/Test, persistent/worsening pain related to initial visit Symptoms Since Prior Visit: no new symptoms Context: called for abnormal lab result Associated Symptoms: none Treatments Prior to Arrival: other (0) - Related Data Home Medications Medication Instructions Recorded Confirmed Citalopram Hydrobromide [CeleXA] 20 mg PO DAILY 03/07/18 09/14/23 Cholecalciferol [Vitamin D3 (25 50 mcg PO DAILY 12/11/21 09/14/23 Mcg = 1000 Iu)] Ascorbic Acid [Vitamin C] 500 mg PO W/LUNCH 08/29/23 09/14/23 clonazePAM [KlonoPIN] 0.5 mg PO HS 08/29/23 09/14/23 Atorvastatin [Lipitor] 20 mg PO HS 09/14/23 09/14/23 Fluticasone/Umeclidin/Vilanter 1 puff INHALATION RT-DAILY 09/14/23 09/14/23 [Trelegy Ellipta 100-62.5-25] Ipratropium-Albuterol Nebulize 3 ml INHALATION RT-QID 09/14/23 09/14/23 [Duoneb 0.5 mg-3 mg/3 ml Soln] polyethylene glycoL 3350 [Miralax] 17 gm PO DAILY PRN 09/14/23 09/14/23 Previous Rx's Medication Instructions Recorded Acetaminophen Tab [Tylenol] 650 mg PO Q4HR PRN tab 08/08/23 Nicotine 14Mg/24Hr Patch [Habitrol] 1 patch TRANSDERM DAILY #30 patch 08/08/23 Furosemide [Lasix] 40 mg PO DAILY #30 tablet 08/12/23 Potassium Chloride ER [K-Dur 10] 10 meq PO DAILY #30 tab 08/12/23 Apixaban [Eliquis] 5 mg PO BID #60 tab 09/19/23 Aspirin 81 mg PO DAILY 30 Days #30 tab 09/19/23 Ferrous Sulfate [Iron (65 MG 325 mg PO BID #60 tab 09/19/23 Elemental)] Metoprolol Tartrate [Lopressor] 12.5 mg PO BID 30 Days #60 tablet 09/19/23 Pantoprazole Sodium [Protonix] 40 mg PO DAILY #30 tab 09/19/23 Allergies Allergy/AdvReac Type Severity Reaction Status Date / Time No Known Allergies Allergy Verified 09/14/23 21:46 Review of Systems ROS Statement: Those systems with pertinent positive or pertinent negative responses have been documented in the HPI. ROS Other: All systems not noted in ROS Statement are negative. Past Medical History Past Medical History: Atrial Fibrillation, Coronary Artery Disease (CAD), GERD/Reflux, Hyperlipidemia, Hypertension, Renal Disease Additional Past Medical History / Comment(s): Mitral regurgitation; abdominal aortic aneurysm History of Any Multi-Drug Resistant Organisms: None Reported Past Surgical History: Coronary Bypass/CABG, Heart Catheterization, Hernia Repair Additional Past Surgical History / Comment(s): three-vessel CABG with mitral valve repair 07/27/2023 Past Anesthesia/Blood Transfusion Reactions: No Reported Reaction Type of Cardiac Device: Permanent Pacemaker Device Placement Date:: 08/03/2023 [employer] Past Psychological History: Depression Smoking Status: Current every day smoker Past Alcohol Use History: None Reported Past Drug Use History: None Reported - Past Family History Father Family Medical History: Myocardial Infarction (PA) Additional Family Medical History / Comment(s): at age 90 from a myocardial infarction General Exam Limitations: no limitations General appearance: alert, in no apparent distress Head exam: Present: atraumatic, normocephalic, normal inspection Eye exam: Present: normal appearance, PERRL, EOMI. Absent: scleral icterus, conjunctival injection, periorbital swelling ENT exam: Present: normal exam, mucous membranes moist Neck exam: Present: normal inspection. Absent: tenderness, meningismus, lymphadenopathy Respiratory exam: Present: normal lung sounds bilaterally. Absent: respiratory distress, wheezes, rales, rhonchi, stridor Cardiovascular Exam: Present: regular rate, normal rhythm, normal heart sounds. Absent: systolic murmur, diastolic murmur, rubs, gallop, clicks GI/Abdominal exam: Present: soft, normal bowel sounds. Absent: distended, tenderness, guarding, rebound, rigid Extremities exam: Present: normal inspection, full ROM, normal capillary refill. Absent: tenderness, pedal edema, joint swelling, calf tenderness Back exam: Present: normal inspection Neurological exam: Present: alert, oriented X3, CN II-XII intact Psychiatric exam: Present: normal affect, normal mood Skin exam: Present: warm, dry, intact, normal color. Absent: rash Course Vital Signs 09/14/23 09/14/23 09/14/23 19:53 20:15 21:20 Temperature 98.4 F Pulse Rate 73 80 62 Respiratory 20 16 17 Rate Blood Pressure 77/45 97/55 88/49 O2 Sat by Pulse 96 Oximetry 09/14/23 09/14/23 09/14/23 21:30 21:45 22:15 Temperature Pulse Rate 61 63 71 Respiratory 19 15 18 Rate Blood Pressure 88/49 92/51 100/55 O2 Sat by Pulse Oximetry 09/14/23 09/14/23 09/14/23 22:30 22:45 22:59 Temperature 97.3 F L 97.4 F L Pulse Rate 61 62 61 Respiratory 20 20 18 Rate Blood Pressure 89/49 92/46 96/45 O2 Sat by Pulse 96 Oximetry 09/14/23 09/15/23 09/15/23 23:19 00:26 01:24 Temperature 98.0 F Pulse Rate 62 66 62 Respiratory 20 16 18 Rate Blood Pressure 90/49 100/50 106/47 O2 Sat by Pulse 92 L 93 L 96 Oximetry 09/15/23 09/15/23 09/15/23 02:00 04:30 07:38 Temperature Pulse Rate 62 60 61 Respiratory 16 18 16 Rate Blood Pressure 102/49 100/62 92/59 O2 Sat by Pulse 91 L 95 Oximetry 09/15/23 09/15/23 09/15/23 07:47 07:50 07:57 Temperature Pulse Rate 68 63 Respiratory Rate Blood Pressure O2 Sat by Pulse 97 Oximetry 09/15/23 09/15/23 09/15/23 08:45 09:21 09:22 Temperature Pulse Rate 69 Respiratory 16 Rate Blood Pressure 101/63 O2 Sat by Pulse 93 L 81 L 95 Oximetry 09/15/23 09/15/23 09/15/23 09:30 11:09 11:13 Temperature Pulse Rate 60 63 62 Respiratory 17 17 Rate Blood Pressure 100/56 96/57 O2 Sat by Pulse 95 97 Oximetry 09/15/23 09/15/23 09/15/23 11:29 12:31 13:30 Temperature 98.3 F Pulse Rate 61 75 73 Respiratory 17 18 Rate Blood Pressure 92/56 101/65 O2 Sat by Pulse 97 97 Oximetry 09/15/23 09/15/23 09/15/23 15:00 15:29 15:32 Temperature Pulse Rate 75 76 78 Respiratory 19 18 Rate Blood Pressure 105/45 99/52 O2 Sat by Pulse 95 96 Oximetry 09/15/23 09/15/23 15:39 16:08 Temperature 98.2 F Pulse Rate 66 68 Respiratory 17 Rate Blood Pressure 95/54 O2 Sat by Pulse 95 Oximetry - Reevaluation(s) Reevaluation #1: 09/14/23 21:53 Medical record is reviewed Reevaluation #2: 09/14/23 21:53 Patient symptoms are improved Reevaluation #3: 09/14/23 21:53 Patient informed results and questions answered Reevaluation #4: 09/14/23 21:53 Was pt. sent in by a medical professional or institution (, PA, MILITARY TECHNICIAN, urgent care, hospital, or penitentiary...) When possible be specific @ -no Did you speak to anyone other than the patient for history (EMS, parent, family, police, friend...)? What history was obtained from this source @ -no Did you review nursing and triage notes (agree or disagree)? Why? @ -agree Are old charts reviewed (outside hosp., previous admission, EMS record, old EKG, old radiological studies, urgent care reports/EKG's, penitentiary records)? Report findings @ -yes Differential Diagnosis (chest pain, altered mental status, abdominal pain women, abdominal pain men, vaginal bleeding, weakness, fever, dyspnea, syncope, headache, dizziness, GI bleed, back pain, seizure, CVA, palpatations, mental health, musculoskeletal)? @ -prior EKG interpreted by me (3pts min.). @ -yes X-rays interpreted by me (1pt min.). @ -yes CT interpreted by me (1pt min.). @ -no U/S interpreted by me (1pt. min.). @ -no What testing was considered but not performed or refused? (CT, X-rays, U/S, labs)? Why? @ -none What meds were considered but not given or refused? Why? @ -none Did you discuss the management of the patient with other professionals (professionals i.e. , PA, MILITARY TECHNICIAN, lab, RT, psych nurse, social work nurse, 911 emergency services dispatcher, teacher, coastal/harbor defense officer, hospice case manager)? Give summary @ -no Was smoking cessation discussed for >3mins.? @ -no Was critical care preformed (if so, how long)? @ -no Were there social determinants of health that impacted care today? How? (Ho melessness, low income, unemployed, alcoholism, drug addiction, transportation, low edu. Level, literacy, decrease access to med. care, usp, rehab)? @ -none Was there de-escalation of care discussed even if they declined (Discuss DNR or withdrawal of care, Hospice)? DNR status @ -no What co-morbidities impacted this encounter? (DM, HTN, Smoking, COPD, CAD, Cancer, CVA, ARF, Chemo, Hep., AIDS, mental health diagnosis, sleep apnea, morbid obesity)? @ -none Was patient admitted / discharged? Hospital course, mention meds given and route, prescriptions, significant lab abnormalities, going to OR and other pertinent info. @ - 73 male to the emergency department for evaluation of anemia. Patient has a copy recent medical history with recent coronary artery bypass grafting. Patient presents today for outpatient low hemoglobin, patient will be admitted for anemia and need for transfusion Admitted Undiagnosed new problem with uncertain prognosis? @ -no Drug Therapy requiring intensive monitoring for toxicity (Heparin, Nitro, Insulin, Cardizem)? @ -no Were any procedures done? @ -no Diagnosis/symptom? @ -Anemia Acute, or Chronic, or Acute on Chronic? @ -Acute Uncomplicated (without systemic symptoms) or Complicated (systemic symptoms)? @ -Complicated Side effects of treatment? @ -no Exacerbation, Progression, or Severe Exacerbation? @ -exacerbation Poses a threat to life or bodily function? How? (Chest pain, USA, PA, pneumonia, PE, COPD, DKA, ARF, appy, cholecystitis, CVA, Diverticulitis, Homicidal, Suicidal, threat to staff... and all critical care pts) @ -yes Reevaluation #5: 09/14/23 21:53 Differential Weakness: Hypoglycemia, shock, sepsis, hyponatremia, anemia, infection, PA, ETOH, adverse medicine reaction, overdose, stroke, this is not meant to be an all-inclusive list. Medical Decision Making - Medical Decision Making 73 male to the emergency department for evaluation of anemia. Patient has a copy recent medical history with recent coronary artery bypass grafting. Patient presents today for outpatient low hemoglobin, patient will be admitted for anemia and need for transfusion - Lab Data Result diagrams: 09/19/23 04:09 09/19/23 04:09 Lab Results 09/14/23 09/14/23 09/14/23 Range/Units 20:03 20:03 20:03 WBC 5.4 (3.8-10.6) k/uL RBC 2.40 L (4.30-5.90) m/uL Hgb 7.0 L D (13.0-17.5) gm/dL Hct 23.7 L (39.0-53.0) % MCV 98.7 D (80.0-100.0) fL MCH 29.3 (25.0-35.0) pg MCHC 29.6 L (31.0-37.0) g/dL RDW 17.4 H (11.5-15.5) % Plt Count 282 (150-450) k/uL MPV 8.2 Neutrophils % 61 % Lymphocytes % 29 % Monocytes % 7 % Eosinophils % 1 % Basophils % 0 % Neutrophils # 3.3 (1.3-7.7) k/uL Lymphocytes # 1.6 (1.0-4.8) k/uL Monocytes # 0.4 (0-1.0) k/uL Eosinophils # 0.0 (0-0.7) k/uL Basophils # 0.0 (0-0.2) k/uL Hypochromasia Marked Poikilocytosis Moderate Anisocytosis Slight Macrocytosis Slight PT 14.0 H (10.0-12.5) sec INR 1.3 H (<1.2) APTT 31.7 H (22.0-30.0) sec Sodium 133 L (137-145) mmol/L Potassium 2.8 L (3.5-5.1) mmol/L Chloride 90 L (98-107) mmol/L Carbon Dioxide 31 H (22-30) mmol/L Anion Gap 12 mmol/L BUN 48 H (9-20) mg/dL Creatinine 1.48 H (0.66-1.25) mg/dL Est GFR (CKD-EPI)AfAm 53 (>60 ml/min/1.73 sqM) Est GFR (CKD-EPI)NonAf 46 (>60 ml/min/1.73 sqM) Glucose 130 H (74-99) mg/dL Calcium 9.0 (8.4-10.2) mg/dL Phosphorus 3.8 (2.5-4.5) mg/dL Magnesium 2.3 (1.6-2.3) mg/dL Total Bilirubin 1.2 (0.2-1.3) mg/dL AST 22 (17-59) U/L ALT 14 (4-49) U/L Alkaline Phosphatase 112 (38-126) U/L Troponin I (0.000-0.034) ng/mL Total Protein 6.7 (6.3-8.2) g/dL Albumin 3.3 L (3.5-5.0) g/dL Blood Type Blood Type Recheck Bld Type Recheck Status Antibody Screen Crossmatch Spec Expiration Date 09/14/23 09/14/23 Range/Units 20:03 20:32 WBC (3.8-10.6) k/uL RBC (4.30-5.90) m/uL Hgb (13.0-17.5) gm/dL Hct (39.0-53.0) % MCV (80.0-100.0) fL MCH (25.0-35.0) pg MCHC (31.0-37.0) g/dL RDW (11.5-15.5) % Plt Count (150-450) k/uL MPV Neutrophils % % Lymphocytes % % Monocytes % % Eosinophils % % Basophils % % Neutrophils # (1.3-7.7) k/uL Lymphocytes # (1.0-4.8) k/uL Monocytes # (0-1.0) k/uL Eosinophils # (0-0.7) k/uL Basophils # (0-0.2) k/uL Hypochromasia Poikilocytosis Anisocytosis Macrocytosis PT (10.0-12.5) sec INR (<1.2) APTT (22.0-30.0) sec Sodium (137-145) mmol/L Potassium (3.5-5.1) mmol/L Chloride (98-107) mmol/L Carbon Dioxide (22-30) mmol/L Anion Gap mmol/L BUN (9-20) mg/dL Creatinine (0.66-1.25) mg/dL Est GFR (CKD-EPI)AfAm (>60 ml/min/1.73 sqM) Est GFR (CKD-EPI)NonAf (>60 ml/min/1.73 sqM) Glucose (74-99) mg/dL Calcium (8.4-10.2) mg/dL Phosphorus (2.5-4.5) mg/dL Magnesium (1.6-2.3) mg/dL Total Bilirubin (0.2-1.3) mg/dL AST (17-59) U/L ALT (4-49) U/L Alkaline Phosphatase (38-126) U/L Troponin I 0.031 (0.000-0.034) ng/mL Total Protein (6.3-8.2) g/dL Albumin (3.5-5.0) g/dL Blood Type O Positive Blood Type Recheck O Pos Bld Type Recheck Status No Antibody Screen NEGATIVE Crossmatch See Detail Spec Expiration Date 09/17/20232331 - EKG Data -: EKG Interpreted by Me (EKG is paced 71 QRS 215 QTc 565) - Radiology Data Radiology results: report reviewed (chest x-rays negative for acute disease), image reviewed Critical Care Time Critical Care Time: Yes Total Critical Care Time: 31 Disposition Clinical Impression: Anemia, Weakness Disposition: ADMITTED IP TO THIS HOSP Condition: Fair Is patient prescribed a controlled substance at d/c from ED?: No Time of Disposition: 21:50
[2023-09-14 21:11] LABS: ALT 14 U/L (4-49); AST 22 U/L (17-59); African American GFR (CKD) 53 (>60 ml/min/1.73 sqM); Albumin 3.3 g/dL (3.5-5.0); Alkaline Phosphatase 112 U/L (38-126); Anion Gap 12 mmol/L; Blood Urea Nitrogen 48 mg/dL (9-20); Carbon Dioxide 31 mmol/L (22-30); Chloride 90 mmol/L (98-107); Glucose 130 mg/dL (74-99); Magnesium 2.3 mg/dL (1.6-2.3); Non-African American GFR(CKD) 46 (>60 ml/min/1.73 sqM); Phosphorus 3.8 mg/dL (2.5-4.5); Potassium 2.8 mmol/L (3.5-5.1); Sodium 133 mmol/L (137-145); Total Bilirubin 1.2 mg/dL (0.2-1.3); Total Protein 6.7 g/dL (6.3-8.2)
[2023-09-14 21:21] LABS: Anisocytosis Slight; Basophils % (A) 0 %; Eosinophils % (A) 1 %; HCT 23.7 % (39.0-53.0); Hypochromasia Marked; Lymphocytes # (A) 1.6 k/uL (1.0-4.8); Lymphocytes % (A) 29 %; MCH 29.3 pg (25.0-35.0); MCHC 29.6 g/dL (31.0-37.0); Macrocytosis Slight; Mean Platelet Volume 8.2; Monocytes # (A) 0.4 k/uL (0-1.0); Monocytes % (A) 7 %; Neutrophils # (A) 3.3 k/uL (1.3-7.7); Neutrophils % (A) 61 %; Platelet Count 282 k/uL (150-450); Poikilocytosis Moderate; RDW 17.4 % (11.5-15.5); WBC 5.4 k/uL (3.8-10.6)
[2023-09-14] MEDS ORDERED: POTASSIUM BICARBONATE/CIT AC 20 MEQ TABLET.EFF PO STA ×2 (21:24)
[2023-09-14 21:26] LABS: MCV 98.7 fL (80.0-100.0)
[2023-09-14 21:28] LABS: INR 1.3 (<1.2); Partial Thromboplastin Time 31.7 sec (22.0-30.0)
--- NOTE | 2023-09-14 21:35 | XR ---
EXAMINATION TYPE: XR chest 1V portable DATE OF EXAM: 09/14/2023 COMPARISON: Chest x-ray August 29, 2023 HISTORY: CHF. Shortness of breath. TECHNIQUE: Single frontal view of the chest is obtained. FINDINGS: Overlying sternal wires and mediastinal clips are redemonstrated. Stable mild cardiomegaly with dual lead pacemaker. Left atrial appendage clip is redemonstrated. Central increased markings b ilaterally again seen. Small left pleural effusion diminished in size from prior urine The osseous st ructures are intact. IMPRESSION: Mild cardiomegaly with small left pleural effusion and fairly moderate central vascular congestion is present. Findings are consistent with continued CHF exacerbation.
[2023-09-14] MEDS ORDERED: MORPHINE SULFATE 4 MG/ML SYRINGE IV PRN (21:49)
[2023-09-14] MEDS ORDERED: NALOXONE 0.4 MG/ML 1 ML VIAL IV PRN (21:49)
[2023-09-14] MEDS ORDERED: ONDANSETRON 4 MG/2 ML VIAL IVP PRN (21:49)
[2023-09-15] MEDS ORDERED: clonazePAM 0.5 MG TAB PO STA (01:27)
[2023-09-15] MEDS: SODIUM CHLORIDE 0.9% 1,000 ML IV SCH (02:05)
[2023-09-15] MEDS ORDERED: polyethylene glycoL 3350 17 GM POWD.PACK PO PRN (07:04)
[2023-09-15] MEDS ORDERED: ACETAMINOPHEN TAB 325 MG TAB PO PRN (07:04)
[2023-09-15] MEDS: IPRATROPIUM-ALBUTEROL 3 ML NEB INHALATION SCH ×4 (07:46→20:54)
[2023-09-15] MEDS: SYMBICORT 80-4.5 MCG INHALER INHALATION SCH ×2 (07:47→20:54)
[2023-09-15 08:00] LABS: Anisocytosis Slight; Basophils % (A) 0 %; Eosinophils % (A) 1 %; HCT 25.9 % (39.0-53.0); Hypochromasia Marked; Lymphocytes # (A) 1.3 k/uL (1.0-4.8); Lymphocytes % (A) 26 %; MCHC 30.8 g/dL (31.0-37.0); MCV 97.3 fL (80.0-100.0); Macrocytosis Slight; Mean Platelet Volume 7.9; Monocytes # (A) 0.3 k/uL (0-1.0); Monocytes % (A) 7 %; Neutrophils # (A) 3.2 k/uL (1.3-7.7); Neutrophils % (A) 65 %; Platelet Count 222 k/uL (150-450); Poikilocytosis Marked; RBC 2.66 m/uL (4.30-5.90); RDW 17.1 % (11.5-15.5); WBC 4.9 k/uL (3.8-10.6)
[2023-09-15] MEDS: POTASSIUM CHLORIDE ER 20 MEQ TAB.ER PO SCH (08:13)
[2023-09-15] MEDS: NICOTINE 14MG/24HR PATCH TRANSDERM SCH (08:13)
[2023-09-15] MEDS: CITALOPRAM HYDROBROMIDE 20 MG TAB PO SCH (08:13)
[2023-09-15] MEDS: CHOLECALCIFEROL 25 MCG (1000 IU) TABLET PO SCH (08:14)
[2023-09-15 08:30] LABS: ALT 12 U/L (4-49); AST 19 U/L (17-59); African American GFR (CKD) 58 (>60 ml/min/1.73 sqM); Albumin 2.8 g/dL (3.5-5.0); Alkaline Phosphatase 105 U/L (38-126); Anion Gap 7 mmol/L; Blood Urea Nitrogen 46 mg/dL (9-20); Calcium 8.5 mg/dL (8.4-10.2); Carbon Dioxide 32 mmol/L (22-30); Chloride 93 mmol/L (98-107); Glucose 91 mg/dL (74-99); Magnesium 2.2 mg/dL (1.6-2.3); Non-African American GFR(CKD) 51 (>60 ml/min/1.73 sqM); Sodium 132 mmol/L (137-145); Total Bilirubin 1.4 mg/dL (0.2-1.3); Total Protein 5.7 g/dL (6.3-8.2)
--- NOTE | 2023-09-15 12:06 | P.GSCN ---
History of Present Illness Consult date: 09/15/23 History of present illness: CHIEF COMPLAINT: Weakness HISTORY OF PRESENT ILLNESS: This is a 73-year-old male who presented with weakness and outpatient lab with a low hemoglobin of 6.9 and was told to report to the ER. Patient is a poor historian. Patient is very tired during exam. He denies any abdominal pain. Denies any blood in his stools or black stools. Col onoscopy he reports several years ago with no abnormality. And he has never had an EGD. Patient has had a recent CABG on 07/27/2023 with pacemaker on 08/03/2023. Also on Eliquis for his atrial fibrillation. Last dose was 09/14/2023 in the morning. Patient's oxygen saturation was dropping into the high 70s to 80s while sleeping in ER room. He also has history of COPD. Patient has been mildly hypotensive. PAST MEDICAL HISTORY: See below PAST SURGICAL HISTORY: See below MEDICATIONS: See below ALLERGIES: See below SOCIAL HISTORY: No illicit drug use. REVIEW OF SYSTEMS: CONSTITUTIONAL: Denies fever or chills. HEENT: Denies blurred vision, vision changes, or eye pain. Denies hemoptysis CARDIOVASCULAR: Denies chest pain or pressure. RESPIRATORY: No shortness of breath. GASTROINTESTINAL: See HPI for pertinent findings HEMATOLOGIC: Denies bleeding disorders. GENITOURINARY: Denies any blood in urine or increased urinary frequency. SKIN: Denies pruitis. Denies rash. PHYSICAL EXAM: VITAL SIGNS: Reviewed GENERAL: Well-developed in no acute distress. ABDOMEN: Soft. Nondistended. Nondistended NEUROLOGIC: Lethargic. But able to be awoken easily. He is able to answer questions. LABORATORY DATA: WBC 4.9 Hgb 7-8.0. Hemoglobin has been ranging from 7-8 from July to earlier this month. Sodium 132 potassium 3.0 creatinine 1.36 is up IMAGING: Chest x-ray mild cardiomegaly with small left pleural effusion and fairly moderate central vascular congestion is present. Findings are consistent with continued CHF exacerbation. ASSESSMENT: 1. Anemia. Patient has had anemia since CABG 2. History of fibrillation on anticoagulation with Eliquis at home 3. History of recent CABG 07/27/2023 4. History of pacemaker 08/03/2023 5. History of COPD 6. Hypokalemia PLAN: -Will observe patient for now -Continue to hold Eliquis -Continue to monitor hemoglobin -Continue to monitor for any signs or symptoms of bleeding -Potassium is being corrected Physician Complaint Evaluation Supervisor note has been reviewed by physician. Signing provider agrees with the documented findings, assessment, and plan of care. I have personally seen and examined the patient, reviewed the POLE TESTER /PAs history, exam and MDM and agree with the assessment and plan as written. Based on total visit time, I have performed more than 50% of the visit. As above: Patient with persistent anemia. Hemoglobin close to baseline from recent admission one month ago. Patient denies rectal bleeding or melena. Patient short of breath and hypoxic. Await further evaluation by medicine and cardiology. Check stool for occult blood. Possible endoscopy this admission if desired by medical and cardiac teams. Past Medical History Past Medical History: Atrial Fibrillation, Coronary Artery Disease (CAD), GERD/Reflux, Hyperlipidemia, Hypertension, Renal Disease Additional Past Medical History / Comment(s): Mitral regurgitation; abdominal aortic aneurysm History of Any Multi-Drug Resistant Organisms: None Reported Past Surgical History: Coronary Bypass/CABG, Heart Catheterization, Hernia Rep air Additional Past Surgical History / Comment(s): three-vessel CABG with mitral valve repair 07/27/2023 Past Anesthesia/Blood Transfusion Reactions: No Reported Reaction Type of Cardiac Device: Permanent Pacemaker Device Placement Date:: 08/03/2023 [employer] Past Psychological History: Depression Smoking Status: Current every day smoker Past Alcohol Use History: None Reported Past Drug Use History: None Reported - Past Family History Father Family Medical History: Myocardial Infarction ([place]) Additional Family Medical History / Comment(s): at age 90 from a myocardial infarction Medications and Allergies Home Medications Medication Instructions Recorded Confirmed Type Citalopram Hydrobromide [CeleXA] 20 mg PO DAILY 03/07/18 09/14/23 History Cholecalciferol [Vitamin D3 (25 50 mcg PO DAILY 12/11/21 09/14/23 History Mcg = 1000 Iu)] Omeprazole Magnesium [PriLOSEC] 20 mg PO DAILY 12/11/21 09/14/23 History Acetaminophen Tab [Tylenol] 650 mg PO Q4HR PRN tab 08/08/23 09/14/23 Rx Apixaban [Eliquis] 5 mg PO BID #60 tab 08/08/23 09/14/23 Rx Nicotine 14Mg/24Hr Patch [Habitrol] 1 patch TRANSDERM DAILY #30 patch 08/08/23 09/14/23 Rx Furosemide [Lasix] 40 mg PO DAILY #30 tablet 08/12/23 09/14/23 Rx Potassium Chloride ER [K-Dur 10] 10 meq PO DAILY #30 tab 08/12/23 09/14/23 Rx Ascorbic Acid [Vitamin C] 500 mg PO W/LUNCH 08/29/23 09/14/23 History Ferrous Sulfate [Iron (65 MG 325 mg PO BID 08/29/23 09/14/23 History Elemental)] clonazePAM [KlonoPIN] 0.5 mg PO HS 08/29/23 09/14/23 History Aspirin 81 mg PO DAILY 30 Days #30 tab 09/01/23 09/14/23 Rx Atorvastatin [Lipitor] 20 mg PO HS 09/14/23 09/14/23 History Fluticasone/Umeclidin/Vilanter 1 puff INHALATION RT-DAILY 09/14/23 09/14/23 History [Trelegy Ellipta 100-62.5-25] Ipratropium-Albuterol Nebulize 3 ml INHALATION RT-QID 09/14/23 09/14/23 History [Duoneb 0.5 mg-3 mg/3 ml Soln] Metoprolol Tartrate [Lopressor] 12.5 mg PO BID 09/14/23 09/14/23 History metOLazone [Zaroxolyn] 2.5 mg PO MOWEFR 09/14/23 09/14/23 History polyethylene glycoL 3350 [Miralax] 17 gm PO DAILY PRN 09/14/23 09/14/23 History Allergies Allergy/AdvReac Type Severity Reaction Status Date / Time No Known Allergies Allergy Verified 09/14/23 21:46 Surgical - Exam Vital Signs Temp Pulse Resp BP Pulse Ox 98.4 F 73 20 77/45 96 09/14/23 19:53 09/14/23 19:53 09/14/23 19:53 09/14/23 19:53 09/14/23 19:53 Results - Labs 09/15/23 07:41 09/15/23 07:41 Abnormal Lab Results - Last 24 Hours (Table) 09/14/23 09/14/23 09/14/23 Range/Units 20:03 20:03 20:03 RBC 2.40 L (4.30-5.90) m/uL Hgb 7.0 L D (13.0-17.5) gm/dL Hct 23.7 L (39.0-53.0) % MCHC 29.6 L (31.0-37.0) g/dL RDW 17.4 H (11.5-15.5) % PT 14.0 H (10.0-12.5) sec INR 1.3 H (<1.2) APTT 31.7 H (22.0-30.0) sec Sodium 133 L (137-145) mmol/L Potassium 2.8 L (3.5-5.1) mmol/L Chloride 90 L (98-107) mmol/L Carbon Dioxide 31 H (22-30) mmol/L BUN 48 H (9-20) mg/dL Creatinine 1.48 H (0.66-1.25) mg/dL Glucose 130 H (74-99) mg/dL Total Bilirubin (0.2-1.3) mg/dL Total Protein (6.3-8.2) g/dL Albumin 3.3 L (3.5-5.0) g/dL Crossmatch 09/14/23 09/15/23 09/15/23 Range/Units 20:32 07:41 07:41 RBC 2.66 L (4.30-5.90) m/uL Hgb 8.0 L (13.0-17.5) gm/dL Hct 25.9 L (39.0-53.0) % MCHC 30.8 L (31.0-37.0) g/dL RDW 17.1 H (11.5-15.5) % PT (10.0-12.5) sec INR (<1.2) APTT (22.0-30.0) sec Sodium 132 L (137-145) mmol/L Potassium 3.0 L (3.5-5.1) mmol/L Chloride 93 L (98-107) mmol/L Carbon Dioxide 32 H (22-30) mmol/L BUN 46 H (9-20) mg/dL Creatinine 1.36 H (0.66-1.25) mg/dL Glucose (74-99) mg/dL Total Bilirubin 1.4 H (0.2-1.3) mg/dL Total Protein 5.7 L (6.3-8.2) g/dL Albumin 2.8 L (3.5-5.0) g/dL Crossmatch See Detail Diabetes panel 09/14/23 09/15/23 Range/Units 20:03 07:41 Sodium 133 L 132 L (137-145) mmol/L Potassium 2.8 L 3.0 L (3.5-5.1) mmol/L Chloride 90 L 93 L (98-107) mmol/L Carbon Dioxide 31 H 32 H (22-30) mmol/L BUN 48 H 46 H (9-20) mg/dL Creatinine 1.48 H 1.36 H (0.66-1.25) mg/dL Glucose 130 H 91 (74-99) mg/dL Calcium 9.0 8.5 (8.4-10.2) mg/dL AST 22 19 (17-59) U/L ALT 14 12 (4-49) U/L Alkaline Phosphatase 112 105 (38-126) U/L Total Protein 6.7 5.7 L (6.3-8.2) g/dL Albumin 3.3 L 2.8 L (3.5-5.0) g/dL Calcium panel 09/14/23 09/15/23 Range/Units 20:03 07:41 Calcium 9.0 8.5 (8.4-10.2) mg/dL Phosphorus 3.8 3.0 (2.5-4.5) mg/dL Albumin 3.3 L 2.8 L (3.5-5.0) g/dL Pituitary panel 09/14/23 09/15/23 Range/Units 20:03 07:41 Sodium 133 L 132 L (137-145) mmol/L Potassium 2.8 L 3.0 L (3.5-5.1) mmol/L Chloride 90 L 93 L (98-107) mmol/L Carbon Dioxide 31 H 32 H (22-30) mmol/L BUN 48 H 46 H (9-20) mg/dL Creatinine 1.48 H 1.36 H (0.66-1.25) mg/dL Glucose 130 H 91 (74-99) mg/dL Calcium 9.0 8.5 (8.4-10.2) mg/dL Adrenal panel 09/14/23 09/15/23 Range/Units 20:03 07:41 Sodium 133 L 132 L (137-145) mmol/L Potassium 2.8 L 3.0 L (3.5-5.1) mmol/L Chloride 90 L 93 L (98-107) mmol/L Carbon Dioxide 31 H 32 H (22-30) mmol/L BUN 48 H 46 H (9-20) mg/dL Creatinine 1.48 H 1.36 H (0.66-1.25) mg/dL Glucose 130 H 91 (74-99) mg/dL Calcium 9.0 8.5 (8.4-10.2) mg/dL Total Bilirubin 1.2 1.4 H (0.2-1.3) mg/dL AST 22 19 (17-59) U/L ALT 14 12 (4-49) U/L Alkaline Phosphatase 112 105 (38-126) U/L Total Protein 6.7 5.7 L (6.3-8.2) g/dL Albumin 3.3 L 2.8 L (3.5-5.0) g/dL
[2023-09-15] MEDS: ASCORBIC ACID 500 MG TAB PO SCH (12:28)
[2023-09-15] MEDS: PANTOPRAZOLE 40 MG/10 ML VIAL IVP SCH (14:13)
--- NOTE | 2023-09-15 14:17 | HP ---
HISTORY AND PHYSICAL CHIEF COMPLAINTS: Weakness and anemia. HISTORY OF PRESENT ILLNESS: This is a 73-year-old gentleman who recently had a CAD CABG, was complaining of weakness and hemoglobin was found to be 6.9 in the outpatient setting, and the patient came to [facility] at 7, after transfusion is 8. The patient is complaining of weakness. The patient also has renal failure and has severe hypokalemia. There is no history of any fever, rigors, or chills. PAST MEDICAL HISTORY: Reviewed include recent CAD, CABG, atrial fibrillation, multiple complex medical issues, reviewed, rest of the history is reviewed. HOME MEDICATIONS: Reviewed include Klonopin, doses and rest of medications reviewed. ALLERGIES: None. FAMILY HISTORY: History of myocardial infarction in the family. SOCIAL HISTORY: Smoking, continued, ongoing. REVIEW OF SYSTEMS: A 14-point review is negative except as mentioned earlier. PHYSICAL EXAMINATION: VITAL SIGNS: Pulse is 63, blood pressure 93/57, respirations 17. HEENT: Conjunctivae normal. NECK: No jugular venous distention. CARDIOVASCULAR: S1, S2. RESPIRATIONS: Diminished at the basis. ABDOMEN: Soft, nontender. LEGS: No edema. NERVOUS SYSTEM: No focal deficits. SKIN: No ulcer, rash, bleeding. JOINTS: No active deforming arthropathy. LABORATORY DATA: Hemoglobin 8, the most recent; sodium 130; potassium 3. ASSESSMENT: 1. Anemia, acute on chronic. Exact etiology unknown, multifactorial. 2. History of recent CAD, CABG. 3. History of atrial fibrillation. 4. History of pacemaker. 5. Chronic obstructive pulmonary disease. 6. History of hypertension. 7. Hyperlipidemia. 8. Multiple complex medical issues. RECOMMENDATIONS: This 73-year-old gentleman presented with multiple complex medical issues, we will monitor the patient closely, I will recommend to continue current medications. Transfusion has been arranged. Repeat CBC, BMP surgery has surgery was consulted. We will continue to monitor, repeat labs. Monitor blood pressure closely. Guarded prognosis because of multiple complex medical conditions. See orders for details. MMODL / IJN: [id number] /
--- NOTE | 2023-09-15 16:04 | P.GSCN ---
History of Present Illness Consult date: 09/15/23 Reason for Consult: Known to our service from open heart surgery Requesting physician: Delia Oakes History of present illness: This is a 73-year-old gentleman who follows outpatient with Dr. Holloway for primary care and Dr. Higuera for cardiology. He has a previous medical history of coronary artery disease/unstable angina as well as severe mitral regurgitation status post three-vessel CABG and complex mitral valve repair on 07/27/23, hypertension, hyperlipidemia, abdominal aortic aneurysm, chronic ongoing tobacco dependence, moderate restrictive lung disease, GERD, depression, paroxysmal atrial fibrillation with bradycardia/sick sinus syndrome status post permanent pacemaker. This gentleman was hospitalized here at [facility] at the end of June with complaints of shortness of breath, chest tightness, lightheadedness. He underwent echocardiogram at that time demonstrating normal left ventricular size and function with EF 55-60%, severe mitral regurgitation and moderate tricuspid regurgitation. He also had a heart catheterization demonstrating severe triple-vessel coronary artery disease. Consultation was placed to Dr. Mcintosh who recommended and proceeded with coronary artery bypass surgery along with mitral valve repair on July 27. During his postoperative course he did express bradycardia with paroxysmal atrial fibrillation and permanent pacemaker was placed. Once stabilized he was discharged to home with home care on postoperative day #11. He did follow-up with Dr. 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 He was readmitted for generalized weakness and fatigue along with hypotension from August 30- before finally being discharged back to home. Apparently he had lab work completed and was called with a hemoglobin of 6.9 and told to report to the emergency room. He came back into the emergency room yesterday, hemoglobin was 7 here in the emergency room and he was transfused with 1 unit packed red blood cells. He was admitted for evaluation and treatment with consultation placed to general surgery due to anemia as well as Dr. Mcintosh due to recent open heart surgery. Review of Systems Review of systems was completed and was negative except as noted - Constitutional Reports fatigue Past Medical History Past Medical History: Atrial Fibrillation, Coronary Artery Disease (CAD), GERD/Reflux, Hyperlipidemia, Hypertension, Renal Disease Additional Past Medical History / Comment(s): Mitral regurgitation; abdominal aortic aneurysm History of Any Multi-Drug Resistant Organisms: None Reported Past Surgical History: Coronary Bypass/CABG, Heart Catheterization, Hernia Repair Additional Past Surgical History / Comment(s): three-vessel CABG with mitral valve repair 07/27/2023 Past Anesthesia/Blood Transfusion Reactions: No Reported Reaction Type of Cardiac Device: Permanent Pacemaker Device Placement Date:: 08/03/2023 [employer] Past Psychological History: Depression Smoking Status: Current every day smoker Past Alcohol Use History: None Reported Past Drug Use History: None Reported - Past Family History Father Family Medical History: Myocardial Infarction ([place]) Additional Family Medical History / Comment(s): at age 90 from a myocardial infarction Medications and Allergies Home Medications Medication Instructions Recorded Confirmed Type Citalopram Hydrobromide [CeleXA] 20 mg PO DAILY 03/07/18 09/14/23 History Cholecalciferol [Vitamin D3 (25 50 mcg PO DAILY 12/11/21 09/14/23 History Mcg = 1000 Iu)] Omeprazole Magnesium [PriLOSEC] 20 mg PO DAILY 12/11/21 09/14/23 History Acetaminophen Tab [Tylenol] 650 mg PO Q4HR PRN tab 08/08/23 09/14/23 Rx Apixaban [Eliquis] 5 mg PO BID #60 tab 08/08/23 09/14/23 Rx Nicotine 14Mg/24Hr Patch [Habitrol] 1 patch TRANSDERM DAILY #30 patch 08/08/23 09/14/23 Rx Furosemide [Lasix] 40 mg PO DAILY #30 tablet 08/12/23 09/14/23 Rx Potassium Chloride ER [K-Dur 10] 10 meq PO DAILY #30 tab 08/12/23 09/14/23 Rx Ascorbic Acid [Vitamin C] 500 mg PO W/LUNCH 08/29/23 09/14/23 History Ferrous Sulfate [Iron (65 MG 325 mg PO BID 08/29/23 09/14/23 History Elemental)] clonazePAM [KlonoPIN] 0.5 mg PO HS 08/29/23 09/14/23 History Aspirin 81 mg PO DAILY 30 Days #30 tab 09/01/23 09/14/23 Rx Atorvastatin [Lipitor] 20 mg PO HS 09/14/23 09/14/23 History Fluticasone/Umeclidin/Vilanter 1 puff INHALATION RT-DAILY 09/14/23 09/14/23 History [Trelepetra Ellipta 100-62.5-25] Ipratropium-Albuterol Nebulize 3 ml INHALATION RT-QID 09/14/23 09/14/23 History [Duoneb 0.5 mg-3 mg/3 ml Soln] Metoprolol Tartrate [Lopressor] 12.5 mg PO BID 09/14/23 09/14/23 History metOLazone [Zaroxolyn] 2.5 mg PO MOWEFR 09/14/23 09/14/23 History polyethylene glycoL 3350 [Miralax] 17 gm PO DAILY PRN 09/14/23 09/14/23 History Allergies Allergy/AdvReac Type Severity Reaction Status Date / Time No Known Allergies Allergy Verified 09/14/23 21:46 Surgical - Exam Vital Signs Temp Pulse Resp BP Pulse Ox 98.4 F 73 20 77/45 96 09/14/23 19:53 09/14/23 19:53 09/14/23 19:53 09/14/23 19:53 09/14/23 19:53 CONSTITUTIONAL: Sleepy but does arouse, appears comfortable, cooperative, well- developed, well-nourished, no pain, no acute distress EYES: Pupils equal, round, reactive to light, normal ocular movement ENT: Moist mucous membranes without oral lesions present NECK: No masses, no bruits, trachea midline RESPIRATORY: Lungs sounds diminished on the left. Respirations even, nonlabored. Currently on 2 L nasal cannula with oxygen saturation 96%. Strong harsh cough CARDIOVASCULAR: S1, S2 present. Regular rate and rhythm, ventricular paced on telemetry. Sternum stable. Palpable peripheral pulses bilaterally. No edema present. No calf pain or tenderness noted. GASTROINTESTINAL: Abdomen soft, nontender, nondistended without masses or organomegaly noted. There is no rebound or guarding present. Active bowel sounds present 4 quadrants. GENITOURINARY: Deferred INTEGUMENTARY: Skin is warm and dry with evidence of good perfusion. Anterior chest incision well healed without redness or drainage NEUROLOGIC: Cranial nerves II through XII intact, normal coordination, no obvious motor or sensory deficits, speech is normal MUSKULOSKELETAL: Able to move all extremities, strength equal bilaterally, normal posture PSYCHIATRIC: Alert and oriented to person place and time, appropriate affect, intact judgment and insight Results - Labs 09/15/23 07:41 09/15/23 07:41 Abnormal Lab Results - Last 24 Hours (Table) 09/14/23 09/14/23 09/14/23 Range/Units 20:03 20:03 20:03 RBC 2.40 L (4.30-5.90) m/uL Hgb 7.0 L D (13.0-17.5) gm/dL Hct 23.7 L (39.0-53.0) % MCHC 29.6 L (31.0-37.0) g/dL RDW 17.4 H (11.5-15.5) % PT 14.0 H (10.0-12.5) sec INR 1.3 H (<1.2) APTT 31.7 H (22.0-30.0) sec Sodium 133 L (137-145) mmol/L Potassium 2.8 L (3.5-5.1) mmol/L Chloride 90 L (98-107) mmol/L Carbon Dioxide 31 H (22-30) mmol/L BUN 48 H (9-20) mg/dL Creatinine 1.48 H (0.66-1.25) mg/dL Glucose 130 H (74-99) mg/dL Total Bilirubin (0.2-1.3) mg/dL Total Protein (6.3-8.2) g/dL Albumin 3.3 L (3.5-5.0) g/dL Crossmatch 09/14/23 09/15/23 09/15/23 Range/Units 20:32 07:41 07:41 RBC 2.66 L (4.30-5.90) m/uL Hgb 8.0 L (13.0-17.5) gm/dL Hct 25.9 L (39.0-53.0) % MCHC 30.8 L (31.0-37.0) g/dL RDW 17.1 H (11.5-15.5) % PT (10.0-12.5) sec INR (<1.2) APTT (22.0-30.0) sec Sodium 132 L (137-145) mmol/L Potassium 3.0 L (3.5-5.1) mmol/L Chloride 93 L (98-107) mmol/L Carbon Dioxide 32 H (22-30) mmol/L BUN 46 H (9-20) mg/dL Creatinine 1.36 H (0.66-1.25) mg/dL Glucose (74-99) mg/dL Total Bilirubin 1.4 H (0.2-1.3) mg/dL Total Protein 5.7 L (6.3-8.2) g/dL Albumin 2.8 L (3.5-5.0) g/dL Crossmatch See Detail Diabetes panel 09/14/23 09/15/23 Range/Units 20:03 07:41 Sodium 133 L 132 L (137-145) mmol/L Potassium 2.8 L 3.0 L (3.5-5.1) mmol/L Chloride 90 L 93 L (98-107) mmol/L Carbon Dioxide 31 H 32 H (22-30) mmol/L BUN 48 H 46 H (9-20) mg/dL Creatinine 1.48 H 1.36 H (0.66-1.25) mg/dL Glucose 130 H 91 (74-99) mg/dL Calcium 9.0 8.5 (8.4-10.2) mg/dL AST 22 19 (17-59) U/L ALT 14 12 (4-49) U/L Alkaline Phosphatase 112 105 (38-126) U/L Total Protein 6.7 5.7 L (6.3-8.2) g/dL Albumin 3.3 L 2.8 L (3.5-5.0) g/dL Calcium panel 09/14/23 09/15/23 Range/Units 20:03 07:41 Calcium 9.0 8.5 (8.4-10.2) mg/dL Phosphorus 3.8 3.0 (2.5-4.5) mg/dL Albumin 3.3 L 2.8 L (3.5-5.0) g/dL Pituitary panel 09/14/23 09/15/23 Range/Units 20:03 07:41 Sodium 133 L 132 L (137-145) mmol/L Potassium 2.8 L 3.0 L (3.5-5.1) mmol/L Chloride 90 L 93 L (98-107) mmol/L Carbon Dioxide 31 H 32 H (22-30) mmol/L BUN 48 H 46 H (9-20) mg/dL Creatinine 1.48 H 1.36 H (0.66-1.25) mg/dL Glucose 130 H 91 (74-99) mg/dL Calcium 9.0 8.5 (8.4-10.2) mg/dL Adrenal panel 09/14/23 09/15/23 Range/Units 20:03 07:41 Sodium 133 L 132 L (137-145) mmol/L Potassium 2.8 L 3.0 L (3.5-5.1) mmol/L Chloride 90 L 93 L (98-107) mmol/L Carbon Dioxide 31 H 32 H (22-30) mmol/L BUN 48 H 46 H (9-20) mg/dL Creatinine 1.48 H 1.36 H (0.66-1.25) mg/dL Glucose 130 H 91 (74-99) mg/dL Calcium 9.0 8.5 (8.4-10.2) mg/dL Total Bilirubin 1.2 1.4 H (0.2-1.3) mg/dL AST 22 19 (17-59) U/L ALT 14 12 (4-49) U/L Alkaline Phosphatase 112 105 (38-126) U/L Total Protein 6.7 5.7 L (6.3-8.2) g/dL Albumin 3.3 L 2.8 L (3.5-5.0) g/dL - Imaging Chest x-ray: report reviewed, image reviewed EKG: image reviewed Assessment and Plan Assessment: Anemia Hypotension Generalized weakness, fatigue Left pleural effusion History of coronary artery disease/unstable angina as well as severe mitral regurgitation status post three-vessel CABG and complex mitral valve repair on 07/27/23 Hypertension Hyperlipidemia Abdominal aortic aneurysm Chronic ongoing tobacco dependence Moderate restrictive lung disease GERD Depression Paroxysmal atrial fibrillation with bradycardia/sick sinus syndrome status post permanent pacemaker placement 08/03/23 Plan: The patient was seen and examined laying on the cart in the emergency room in no acute distress resting comfortably. Chart/diagnostics reviewed. Case discussed with Dr. Giordano. Recommend continuing current medication therapy e xcept hold liquids, appreciate cardiology recommendations. Monitor hemoglobin. Continue sternal precautions for another 2 months. The patient is more than 30 days post open heart, medical management moving forward per internal medicine, cardiology. I have personally seen and examined the patient, performed the documentation and the assessment and plan as written. Number of minutes spent on the visit: 30. VANDANA Wilcox
[2023-09-15] MEDS: clonazePAM 0.5 MG TAB PO SCH (20:37)
[2023-09-15] MEDS: ATORVASTATIN 20 MG TAB PO SCH (20:37)
[2023-09-16] MEDS: SODIUM CHLORIDE 0.9% 1,000 ML IV SCH ×2 (04:52→19:41)
[2023-09-16] MEDS: FERROUS SULFATE 325 MG TAB PO SCH ×2 (06:53→16:48)
[2023-09-16 07:45] LABS: African American GFR (CKD) 76 (>60 ml/min/1.73 sqM); Anion Gap 5 mmol/L; Blood Urea Nitrogen 34 mg/dL (9-20); Calcium 8.6 mg/dL (8.4-10.2); Carbon Dioxide 34 mmol/L (22-30); Chloride 95 mmol/L (98-107); Glucose 80 mg/dL (74-99); Non-African American GFR(CKD) 65 (>60 ml/min/1.73 sqM); Potassium 3.6 mmol/L (3.5-5.1); Sodium 134 mmol/L (137-145)
[2023-09-16 07:54] LABS: NT-Pro-B-Type Natriuretic Pept 1630 pg/mL
[2023-09-16] MEDS: IPRATROPIUM-ALBUTEROL 3 ML NEB INHALATION SCH ×4 (09:14→21:16)
[2023-09-16] MEDS: SYMBICORT 80-4.5 MCG INHALER INHALATION SCH ×2 (09:14→21:16)
[2023-09-16] MEDS: CHOLECALCIFEROL 25 MCG (1000 IU) TABLET PO SCH (09:43)
[2023-09-16] MEDS: ASCORBIC ACID 500 MG TAB PO SCH (09:43)
[2023-09-16] MEDS: FUROSEMIDE 40 MG TAB PO SCH (09:43)
[2023-09-16] MEDS: CITALOPRAM HYDROBROMIDE 20 MG TAB PO SCH (09:43)
[2023-09-16] MEDS: POTASSIUM CHLORIDE ER 20 MEQ TAB.ER PO SCH (09:43)
[2023-09-16] MEDS: PANTOPRAZOLE 40 MG/10 ML VIAL IVP SCH (09:44)
[2023-09-16] MEDS: NICOTINE 14MG/24HR PATCH TRANSDERM SCH (09:44)
--- NOTE | 2023-09-16 10:00 | CDI ---
Documentation Clarification Form Date: 09/16/2023 09:39:07 AM From: Sherly Barriga RN, CCDS Admit Date: 09/14/2023 09:50:00 PM Patient Name: Francisco Lucio Visit Number: [id number] Discharge Date: ATTENTION: The Clinical Documentation Specialists (CDI) and [facility] Coding Staff appreciate your assistance in clarifying documentation. Please respond to the clarification below the line at the bottom and electronically sign. The CDI & [facility] Coding staff will review the response and follow-up if needed. Please note: Queries are made part of the Legal Health Record. If you have any questions, please contact the author of this message via ITS. Dr. Aditya Castro Renal Failure is documented in the H/P on 09/15/23. Additional clarification regarding the acuity of renal failure is requested. History/Risk Factors: Atrial Fibrillation, Coronary Artery Disease, GERD/Reflux, Hyperlipidemia, Hypertension, Renal Disease, Current every day smoker, Past Surgical History: Coronary Bypass/CABG 07/27/2023, Permanent Pacemaker 08/03/2023 Clinical Indicators: 73-year-old male to the ED for evaluation of persistent weakness. 09/14 Labs: HGB 7.0 Patients baseline/prior: (07/19/23) BUN 14, CR 0.86 GFR: 85 Current: (09/14/23) BUN 48 CR 1.48 GFR 46 09/15: BUN 46 CR 1.36 GFR 51 Treatment: Cardiac/Telemetry monitoring Monitor CBC, BUN CR, Lytes per orders Monitor blood pressure per orders Please clarify the acuity of renal failure, if known: [x ] Acute Renal Failure (specify cause if known) [ ] Chronic renal failure (specify stage if known) [ ] Acute on Chronic renal failure (specify stage) [ ] Other, please specify [ ] Unable to determine (Template Last Revised: January 2021) MTDD
[2023-09-16 11:22] LABS: Basophils # (A) 0.02 X 10*3/uL (0.00-0.10); Basophils % (A) 0.4 %; Eosinophils # (A) 0.04 X 10*3/uL (0.04-0.35); Eosinophils % (A) 0.8 %; HCT 25.6 % (39.6-50.0); HGB 7.4 d/dL (13.0-17.0); Lymphocytes % (A) 28.4 %; MCH 28.8 pg (27.0-32.0); MCHC 28.9 d/dL (32.0-37.0); MCV 99.6 FL (80.0-97.0); Mean Platelet Volume 10.1 FL (9.5-12.2); Monocytes # (A) 0.39 X 10*3/uL (0.20-1.00); Monocytes % (A) 7.4 %; NRBC Per 100 WBC 0.02 X 10*3/uL (0.00-0.01); Neutrophils # (A) 3.33 X 10*3/uL (1.80-7.70); Neutrophils % (A) 62.8 %; Platelet Count 219 X 10*3/uL (140-440); RBC 2.57 X 10*6/uL (4.40-5.60); RDW 17.2 % (11.5-14.5); WBC 5.29 X 10*3/uL (4.50-10.00)
--- NOTE | 2023-09-16 11:26 | P.PN ---
Subjective Progress Note Date: 09/16/23 CHIEF COMPLAINT: Anemia HISTORY OF PRESENT ILLNESS: Patient admitted to the hospital with anemia. Patient is more awake and alert today. He is less short of breath. Currently on 2 L satting 96%. He denies any abdominal pain. He has had no bowel movement while hospitalized. He reports having some loose black stools at home. But he does take iron. Hemoglobin as of yesterday 8.0 up from 7.0 after 1 unit of blood. CBC for today pending. Afebrile. Hypotension improved. PHYSICAL EXAM: VITAL SIGNS: Reviewed. GENERAL: Well-developed in no acute distress. ABDOMEN: Soft. Nondistended. Nontender. NEUROLOGIC: Patient is more awake and alert today ASSESSMENT: 1. Anemia with melanotic stools. But patient is on iron. Hgb close to baseline from recent admission 1 month ago 2. History of fibrillation on anticoagulation with Eliquis at home 3. History of recent CABG 07/27/2023 4. History of pacemaker 08/03/2023 5. History of COPD PLAN: -Possible endoscopy this admission if desired by medical and cardiology team -Continue PPI -Continue to monitor hemoglobin -Continue to monitor for any signs or symptoms of bleeding -Continue heart healthy diet -Stool for occult blood ordered -Hold Eliquis Physician Button Machine Operator note has been reviewed by physician. Signing provider agrees with the documented findings, assessment, and plan of care. I have personally seen and examined the patient, reviewed the CUSTOMER EXPERIENCE ASSOCIATE /PAs history, exam and MDM and agree with the assessment and plan as written. Based on total visit time, I have performed more than 50% of the visit. As above: Patient doing much better today. No shortness of breath currently. He is tolerating regular food. Hemoglobin today 7.4. We'll schedule for upper and lower endoscopy. Patient unclear as to when his last colonoscopy was but it sounds like it was 3-5 years ago. Patient states he would rather go home and have this performed as an outpatient. I told the patient to discuss this further with the admitting physician service. If he is discharged we can make arrangements for outpatient colonoscopy in the next week or so. Objective - Vital Signs Vital signs: Vital Signs Temp 98.5 F 09/16/23 07:10 Pulse 70 09/16/23 09:26 Resp 17 09/16/23 07:10 BP 118/71 09/16/23 07:10 Pulse Ox 96 09/16/23 09:16 FiO2 Intake & Output 09/15/23 09/16/23 09/16/23 18:59 06:59 18:59 Output Total 500 200 Balance -500 -200 Weight 68.039 kg Output: Urine 500 200 Other: Voiding Method Urinal - Labs CBC & Chem 7: 09/16/23 05:45 09/16/23 05:45 Labs: Abnormal Lab Results - Last 24 Hours (Table) 09/16/23 Range/Units 05:45 Sodium 134 L (137-145) mmol/L Chloride 95 L (98-107) mmol/L Carbon Dioxide 34 H (22-30) mmol/L BUN 34 H (9-20) mg/dL
--- NOTE | 2023-09-16 13:40 | P.PN ---
Subjective This is a pleasant 73 years old male who was recently discharged from the hospital and he was hospitalized on 07/27/2023 4 severe triple-vessel coronary artery disease and mitral valve disease status post bypass grafting procedure and mitral valve repair. He was discharged on aspirin 81 mg and Ellik was 5 mg at home. Hip presents with low hemoglobin at 6.9 sent by his PCP Dr. Holloway. Patient has been having exertional dyspnea which is improved with blood transfusion and his hemoglobin improved to 8 yesterday and today is 7.4. Patient lying in bed looks comfortable no chest pain no dyspnea and no exertional dyspnea and no other complaints. Patient already followed by cardiothoracic surgery team and the recommend to continue the same treatment Aspirin and Eliquis remain on hold Objective - Vital Signs Vital signs: Vital Signs Temp 98.5 F 09/16/23 07:10 Pulse 72 09/16/23 12:01 Resp 17 09/16/23 07:10 BP 118/71 09/16/23 07:10 Pulse Ox 96 09/16/23 09:16 FiO2 Intake & Output 09/15/23 09/16/23 09/16/23 18:59 06:59 18:59 Output Total 500 200 Balance -500 -200 Weight 68.039 kg Output: Urine 500 200 Other: Voiding Method Urinal - Exam GENERAL: The patient is alert and oriented x3, not in any acute distress. Well developed, well nourished. HEENT: Pupils are round and equally reacting to light. EOMI. No scleral icterus. No conjunctival pallor. Normocephalic, atraumatic. No pharyngeal erythema. No thyromegaly. CARDIOVASCULAR: S1 and S2 present. No murmurs, rubs, or gallops. PULMONARY: Chest is clear to auscultation, no wheezing , no crackles. ABDOMEN: Soft, nontender, nondistended, normoactive bowel sounds. No palpable organomegaly. MUSCULOSKELETAL: No joint swelling or deformity. EXTREMITIES: No cyanosis, clubbing, or pedal edema. NEUROLOGICAL: Gross neurological examination did not reveal any focal deficits. SKIN: No rashes. no petechiae. - Labs CBC & Chem 7: 09/16/23 05:45 09/16/23 05:45 Labs: Abnormal Lab Results - Last 24 Hours (Table) 09/16/23 09/16/23 Range/Units 05:45 05:45 RBC 2.57 L (4.40-5.60) X 10*6/uL Hgb 7.4 L (13.0-17.0) d/dL Hct 25.6 L (39.6-50.0) % MCV 99.6 H (80.0-97.0) FL MCHC 28.9 L (32.0-37.0) d/dL RDW 17.2 H (11.5-14.5) % NRBC/100 WBC Diff 0.02 H (0.00-0.01) X 10*3/uL Sodium 134 L (137-145) mmol/L Chloride 95 L (98-107) mmol/L Carbon Dioxide 34 H (22-30) mmol/L BUN 34 H (9-20) mg/dL Assessment and Plan Assessment: Acute blood loss anemia Acute GI bleed, possible Recent history of severe triple-vessel coronary artery disease status post CABG and mitral valve repair on 07/27/2023 Chronic kidney disease stage II History of GERD Chronic atrial fibrillation Plan: Hold aspirin and I closed later by surgery Surgical team are planning to do EGD and stent endoscopy Patient medically stable to undergo for procedures however he still at risk but benefits more than risk. Cardiology consult Labs and medication were reviewed.. Continue same treatment. Continue with symptomatic treatment. Resume home medication. Monitor labs and vitals. DVT and GI prophylaxis. Further recommendations as per clinical course of the patient DVT prophylaxis: Hold anticoagulation for possible GI bleed GI Prophylaxis: Ppi Prognosis is guarded
--- NOTE | 2023-09-16 14:13 | P.CRDCN ---
History of Present Illness History of present illness: HISTORY OF PRESENT ILLNESS: This is a 73-year-old male with a past medical history significant for coronary artery disease with recent 3 vessel CABG, mitral valve repair, tricuspid valve repair, pacemaker implantation, hypertension, hyperlipidemia, COPD, anemia, and nicotine dependence. Patient follows in the office with Dr. Higuera. We have been asked to see the patient in consultation for coronary artery disease. Patient examined at the bedside. Patient states he has been feeling weak at home for the past 5-7 days. He reports he has been having black stools since having his CABG in July. It is noted that the patient is on oral iron twice a day on an outpatient basis. Hemoglobin today is 7.4. His Eliquis has been placed on hold. He has received 1 unit packed RBCs. General surgery has been consulted and is planning for endoscopy. * EKG reveals paced rhythm * Chest xray mild cardiomegaly with small left pleural effusion and fairly moderate central vascular congestion. Findings are consistent with continued CHF exacerbation * Most recent echocardiogram obtained in August 2023 revealed ejection fraction 50-55% REVIEW OF SYSTEMS: At the time of my exam: CONSTITUTIONAL: Denies fever or chills. HEENT: Denies blurred vision, vision changes, or eye pain. Denies hemoptysis CARDIOVASCULAR: Denies chest pain. Denies orthopnea. Denies PND. Denies palpitations RESPIRATORY: Denies shortness of breath. GASTROINTESTINAL: Denies abdominal pain. Denies nausea or vomiting. HEMATOLOGIC: Denies bleeding disorders. GENITOURINARY: Denies any blood in urine. SKIN: Denies pruitis. Denies rash. PHYSICAL EXAM: VITAL SIGNS: Reviewed. GENERAL: Well-developed in no acute distress. HEENT: Head is normocephalic. Pupils are equal, round. Sclerae anicteric. Mucous membranes of the mouth are moist. Neck supple. + JVD. LUNGS: Respirations even and unlabored. Lungs essentially clear to auscultation bilaterally. HEART: Regular rate and rhythm. S1 and S2 heard. Systolic murmur noted. ABDOMEN: Soft. Nondistended. Nontender. EXTREMITIES: Normal range of motion. No clubbing or cyanosis. Peripheral pulses intact. No lower extremity edema NEUROLOGIC: Awake and alert. Oriented x 3. ASSESSMENT: Anemia with melanotic stools, on iron outpatient, hemoglobin fairly stable since CABG in July 2023 Coronary artery disease with recent 3 vessel CABG, MV repair, and TV repair, July 2023 Paroxysmal atrial fibrillation History of permanent pacemaker implantation Hypertension Hyperlipidemia COPD Nicotine dependence PLAN: Continue current cardiac medications Eliquis remains on hold Patient scheduled for endoscopy with general surgery on Tuesday No absolute contraindications from a cardiac standpoint for patient to proceed with endoscopy Further recommendations pending patient's course Nurse practitioner note has been reviewed by physician. Signing provider agrees with the documented findings, assessment, and plan of care. Past Medical History Past Medical History: Atrial Fibrillation, Coronary Artery Disease (CAD), GERD/Reflux, Hyperlipidemia, Hypertension, Renal Disease Additional Past Medical History / Comment(s): Mitral regurgitation; abdominal aortic aneurysm History of Any Multi-Drug Resistant Organisms: None Reported Past Surgical History: Coronary Bypass/CABG, Heart Catheterization, Hernia Repair Additional Past Surgical History / Comment(s): three-vessel CABG with mitral valve repair 07/27/2023 Past Anesthesia/Blood Transfusion Reactions: No Reported Reaction Type of Cardiac Device: Permanent Pacemaker Device Placement Date:: 08/03/2023 [employer] Past Psychological History: Depression Smoking Status: Current every day smoker Past Alcohol Use History: None Reported Additional Past Alcohol Use History / Comment(s): STARTED SMOKING AT AGE 15 QUIT ON AND OFF AND CURRENTLY SMOKING , SMOKES 1 PPD Past Drug Use History: None Reported - Past Family History Father Family Medical History: Myocardial Infarction ([place]) Additional Family Medical History / Comment(s): at age 90 from a myocardial infarction Medications and Allergies Home Medications Medication Instructions Recorded Confirmed Type Citalopram Hydrobromide [CeleXA] 20 mg PO DAILY 03/07/18 09/14/23 History Cholecalciferol [Vitamin D3 (25 50 mcg PO DAILY 12/11/21 09/14/23 History Mcg = 1000 Iu)] Omeprazole Magnesium [PriLOSEC] 20 mg PO DAILY 12/11/21 09/14/23 History Acetaminophen Tab [Tylenol] 650 mg PO Q4HR PRN tab 08/08/23 09/14/23 Rx Apixaban [Eliquis] 5 mg PO BID #60 tab 08/08/23 09/14/23 Rx Nicotine 14Mg/24Hr Patch [Habitrol] 1 patch TRANSDERM DAILY #30 patch 08/08/23 09/14/23 Rx Furosemide [Lasix] 40 mg PO DAILY #30 tablet 08/12/23 09/14/23 Rx Potassium Chloride ER [K-Dur 10] 10 meq PO DAILY #30 tab 08/12/23 09/14/23 Rx Ascorbic Acid [Vitamin C] 500 mg PO W/LUNCH 08/29/23 09/14/23 History Ferrous Sulfate [Iron (65 MG 325 mg PO BID 08/29/23 09/14/23 History Elemental)] clonazePAM [KlonoPIN] 0.5 mg PO HS 08/29/23 09/14/23 History Aspirin 81 mg PO DAILY 30 Days #30 tab 09/01/23 09/14/23 Rx Atorvastatin [Lipitor] 20 mg PO HS 09/14/23 09/14/23 History Fluticasone/Umeclidin/Vilanter 1 puff INHALATION RT-DAILY 09/14/23 09/14/23 History [Trelepetra Ellipta 100-62.5-25] Ipratropium-Albuterol Nebulize 3 ml INHALATION RT-QID 09/14/23 09/14/23 History [Duoneb 0.5 mg-3 mg/3 ml Soln] Metoprolol Tartrate [Lopressor] 12.5 mg PO BID 09/14/23 09/14/23 History metOLazone [Zaroxolyn] 2.5 mg PO MOWEFR 09/14/23 09/14/23 History polyethylene glycoL 3350 [Miralax] 17 gm PO DAILY PRN 09/14/23 09/14/23 History Allergies Allergy/AdvReac Type Severity Reaction Status Date / Time No Known Allergies Allergy Verified 09/14/23 21:46 Physical Exam Vitals: Vital Signs Temp Pulse Pulse Resp BP BP Pulse Ox 09/16/23 13:39 98.1 F 86 16 105/61 92 L 09/16/23 12:01 72 09/16/23 11:55 68 09/16/23 09:26 70 09/16/23 09:16 64 96 09/16/23 07:10 98.5 F 72 17 118/71 96 09/16/23 01:32 98.6 F 69 20 111/66 97 09/15/23 19:36 98.6 F 78 17 107/66 98 09/15/23 16:55 97.6 F 70 19 97/55 95 09/15/23 16:08 98.2 F 68 17 95/54 95 09/15/23 15:39 66 09/15/23 15:32 78 18 99/52 96 09/15/23 15:29 76 09/15/23 15:00 75 19 105/45 95 Intake and Output 09/15/23 09/16/23 09/16/23 22:59 06:59 14:59 Output Total 500 200 Balance -500 -200 Output: Urine 500 200 Other: Voiding Method Urinal Weight 68.039 kg Results 09/16/23 05:45 09/16/23 05:45 CBC 09/16/23 Range/Units 05:45 WBC 5.29 (4.50-10.00) X 10*3/uL RBC 2.57 L (4.40-5.60) X 10*6/uL Hgb 7.4 L (13.0-17.0) d/dL Hct 25.6 L (39.6-50.0) % Plt Count 219 (140-440) X 10*3/uL Comprehensive Metabolic Panel 09/16/23 Range/Units 05:45 Sodium 134 L (137-145) mmol/L Potassium 3.6 (3.5-5.1) mmol/L Chloride 95 L (98-107) mmol/L Carbon Dioxide 34 H (22-30) mmol/L BUN 34 H (9-20) mg/dL Creatinine 1.10 (0.66-1.25) mg/dL Glucose 80 (74-99) mg/dL Calcium 8.6 (8.4-10.2) mg/dL Current Medications Generic Name Dose Route Start Last Admin Trade Name Hemanthq PRN Reason Stop Dose Admin Acetaminophen 650 mg 09/15/23 07:04 Acetaminophen Tab 325 Mg Tab PO Q4HR PRN Fever and/ or Mild Pain Albuterol/Ipratropium 3 ml 09/15/23 08:00 09/16/23 11:53 Ipratropium-Albuterol 3 Ml Neb INHALATION 3 ml RT-QID ANCA Administration Ascorbic Acid 500 mg 09/15/23 12:30 09/16/23 09:43 Ascorbic Acid 500 Mg Tab PO 500 mg W/LUNCH ANCA Administration Atorvastatin Calcium 20 mg 09/15/23 21:00 09/15/23 20:37 Atorvastatin 20 Mg Tab PO 20 mg HS ANCA Administration Budesonide/Formoterol Fumarate 2 puff 09/15/23 08:00 09/16/23 09:14 Symbicort 80-4.5 Mcg Inhaler INHALATION 2 puff RT-BID ANCA Administration Cholecalciferol 50 mcg 09/15/23 09:00 09/16/23 09:43 Cholecalciferol 25 Mcg (1000 Iu) Tablet PO 50 mcg DAILY ANCA Administration Citalopram Hydrobromide 20 mg 09/15/23 09:00 09/16/23 09:43 Citalopram Hydrobromide 20 Mg Tab PO 20 mg DAILY ANCA Administration Clonazepam 0.5 mg 09/15/23 21:00 09/15/23 20:37 Clonazepam 0.5 Mg Tab PO 0.5 mg HS ANCA Administration Ferrous Sulfate 325 mg 09/16/23 07:30 09/16/23 06:53 Ferrous Sulfate 325 Mg Tab PO 325 mg BID-W/MEALS ANCA Administration Furosemide 40 mg 09/16/23 09:00 09/16/23 09:43 Furosemide 40 Mg Tab PO 40 mg DAILY ANCA Administration Sodium Chloride 1,000 mls @ 20 mls/hr 09/14/23 22:00 09/16/23 04:52 Saline 0.9% IV Not Given .Q24H ANCA Morphine Sulfate 4 mg 09/14/23 21:49 Morphine Sulfate 4 Mg/Ml Syringe IV Q4HR PRN Severe Pain (Scale 7 to 10) Naloxone HCl 0.2 mg 09/14/23 21:49 Naloxone 0.4 Mg/Ml 1 Ml Vial IV Q2M PRN Opioid Reversal Nicotine 1 patch 09/15/23 09:00 09/16/23 09:44 Nicotine 14mg/24hr Patch TRANSDERM 1 patch DAILY ANCA Administration Ondansetron HCl 4 mg 09/14/23 21:49 Ondansetron 4 Mg/2 Ml Vial IVP Q8HR PRN Nausea And Vomiting Pantoprazole Sodium 40 mg 09/15/23 13:30 09/16/23 09:44 Pantoprazole 40 Mg/10 Ml Vial IVP 40 mg DAILY ANCA Administration Polyethylene Glycol 17 gm 09/15/23 07:04 Polyethylene Glycol 3350 17 Gm Powd.Pack PO DAILY PRN Constipation Potassium Chloride 40 meq 09/15/23 09:00 09/16/23 09:43 Potassium Chloride Er 20 Meq Tab.Er PO 40 meq DAILY ANCA Administration Intake and Output 09/15/23 09/16/23 09/16/23 22:59 06:59 14:59 Output Total 500 200 Balance -500 -200 Output: Urine 500 200 Other: Voiding Method Urinal Weight 68.039 kg 09/16/23 05:45 09/16/23 05:45
[2023-09-16] MEDS: ATORVASTATIN 20 MG TAB PO SCH (19:44)
[2023-09-16] MEDS: clonazePAM 0.5 MG TAB PO SCH (19:44)
[2023-09-17] MEDS: FERROUS SULFATE 325 MG TAB PO SCH ×2 (06:27→17:30)
[2023-09-17] MEDS ORDERED: LIDOCAINE 1% (10MG/ML) FOR IV START INTRADERMA PRN (07:33)
[2023-09-17] MEDS: IPRATROPIUM-ALBUTEROL 3 ML NEB INHALATION SCH ×4 (08:08→20:30)
[2023-09-17] MEDS: SYMBICORT 80-4.5 MCG INHALER INHALATION SCH ×2 (08:08→20:30)
[2023-09-17] MEDS: LACTATED RINGERS 1,000 ML IV SCH (08:14)
[2023-09-17] MEDS: ASCORBIC ACID 500 MG TAB PO SCH (08:43)
[2023-09-17] MEDS: CHOLECALCIFEROL 25 MCG (1000 IU) TABLET PO SCH (08:43)
[2023-09-17] MEDS: PANTOPRAZOLE 40 MG/10 ML VIAL IVP SCH (08:43)
[2023-09-17] MEDS: POTASSIUM CHLORIDE ER 20 MEQ TAB.ER PO SCH (08:43)
[2023-09-17] MEDS: NICOTINE 14MG/24HR PATCH TRANSDERM SCH (08:44)
[2023-09-17] MEDS: FUROSEMIDE 40 MG TAB PO SCH (08:44)
[2023-09-17] MEDS: CITALOPRAM HYDROBROMIDE 20 MG TAB PO SCH (08:44)
[2023-09-17 09:37] LABS: Chloride 96 mmol/L (96-109); Glucose 99 mg/dL (70-110); Potassium 3.5 mmol/L (3.5-5.5); Sodium 137 mmol/L (135-145)
[2023-09-17 10:28] LABS: Basophils # (A) 0.03 X 10*3/uL (0.00-0.10); Basophils % (A) 0.6 %; Eosinophils # (A) 0.06 X 10*3/uL (0.04-0.35); Eosinophils % (A) 1.1 %; HCT 24.8 % (39.6-50.0); HGB 7.2 d/dL (13.0-17.0); Lymphocytes # (A) 1.38 X 10*3/uL (0.90-5.00); Lymphocytes % (A) 26.3 %; MCH 28.7 pg (27.0-32.0); MCV 98.8 FL (80.0-97.0); Monocytes # (A) 0.45 X 10*3/uL (0.20-1.00); Monocytes % (A) 8.6 %; NRBC Per 100 WBC 0 X 10*3/uL (0.00-0.01); Neutrophils # (A) 3.31 X 10*3/uL (1.80-7.70); Platelet Count 201 X 10*3/uL (140-440); RBC 2.51 X 10*6/uL (4.40-5.60); RDW 16.6 % (11.5-14.5); WBC 5.25 X 10*3/uL (4.50-10.00)
--- NOTE | 2023-09-17 11:10 | P.PN ---
Subjective Progress Note Date: 09/17/23 Principal diagnosis: unexplained anemia patient resting in bed quietly, denies any hematemesis, no bowel movement past 24 hours Objective - Vital Signs Vital signs: Vital Signs Temp 98.8 F 09/17/23 07:20 Pulse 85 09/17/23 08:18 Resp 16 09/17/23 07:20 BP 102/62 09/17/23 07:20 Pulse Ox 99 09/17/23 07:20 FiO2 Intake & Output 09/16/23 09/17/23 09/17/23 18:59 06:59 18:59 Output Total 200 Balance -200 Output: Urine 200 Other: # Voids 4 - Constitutional Constitutional Comment(s): appears comfortable, in no acute distress - Respiratory Details: non labored respiration - Cardiovascular Details: no tachycardia - Gastrointestinal Gastrointestinal Comment(s): abdomen is soft, nontender, no palpable mass or hernia - Labs CBC & Chem 7: 09/17/23 05:53 09/17/23 05:53 Labs: Abnormal Lab Results - Last 24 Hours (Table) 09/16/23 09/17/23 09/17/23 Range/Units 05:45 05:53 05:53 RBC 2.57 L 2.51 L (4.40-5.60) X 10*6/uL Hgb 7.4 L 7.2 L (13.0-17.0) d/dL Hct 25.6 L 24.8 L (39.6-50.0) % MCV 99.6 H 98.8 H (80.0-97.0) FL MCHC 28.9 L 29.0 L (32.0-37.0) d/dL RDW 17.2 H 16.6 H (11.5-14.5) % NRBC/100 WBC Diff 0.02 H (0.00-0.01) X 10*3/uL BUN/Creatinine Ratio 24.00 H (12.00-20.00) Ratio Assessment and Plan Assessment: 73-year-old male with unexplained anemia. Hemoglobin 7.2 from 7.4 yesterday, no overt bleeding No acute surgical indications Continue PPI, serial CBC Endoscopy plan for Tuesday09/19/23 Time with Patient: Less than 30
--- NOTE | 2023-09-17 11:53 | P.PN ---
Subjective This is a pleasant 73 years old male who was recently discharged from the hospital and he was hospitalized on 07/27/2023 4 severe triple-vessel coronary artery disease and mitral valve disease status post bypass grafting procedure and mitral valve repair. He was discharged on aspirin 81 mg and Ellik was 5 mg at home. Hip presents with low hemoglobin at 6.9 sent by his PCP Dr. Holloway. Patient has been having exertional dyspnea which is improved with blood transfusion and his hemoglobin improved to 8 yesterday and today is 7.4. Patient lying in bed looks comfortable no chest pain no dyspnea and no exertional dyspnea and no other complaints. Patient already followed by cardiothoracic surgery team and the recommend to continue the same treatment Aspirin and Eliquis remain on hold 09/17/2023 Patient with no complaint today. No shortness of breath, no abdominal pain or tenderness. Patient says he didn't have bowel movement yesterday or today. no signs of active bleeding as per patient Hemoglobin 7.2 Eliquis and aspirin are remain on hold. Continue with IV Protonix Plan for endoscopy on Tuesday There is no indication of from medical point of view to proceed with endoscopic Active Medications Generic Name Dose Route Start Last Admin Trade Name Freq PRN Reason Stop Dose Admin Acetaminophen 650 mg 09/15/23 07:04 Acetaminophen Tab 325 Mg Tab PO Q4HR PRN Fever and/ or Mild Pain Albuterol/Ipratropium 3 ml 09/15/23 08:00 09/17/23 11:48 Ipratropium-Albuterol 3 Ml Neb INHALATION 3 ml RT-QID ANCA Administration Ascorbic Acid 500 mg 09/15/23 12:30 09/17/23 08:43 Ascorbic Acid 500 Mg Tab PO 500 mg W/LUNCH ANCA Administration Atorvastatin Calcium 20 mg 09/15/23 21:00 09/16/23 19:44 Atorvastatin 20 Mg Tab PO 20 mg HS ANCA Administration Budesonide/Formoterol Fumarate 2 puff 09/15/23 08:00 09/17/23 08:08 Symbicort 80-4.5 Mcg Inhaler INHALATION 2 puff RT-BID ANCA Administration Cholecalciferol 50 mcg 09/15/23 09:00 09/17/23 08:43 Cholecalciferol 25 Mcg (1000 Iu) Tablet PO 50 mcg DAILY ANCA Administration Citalopram Hydrobromide 20 mg 09/15/23 09:00 09/17/23 08:44 Citalopram Hydrobromide 20 Mg Tab PO 20 mg DAILY ANCA Administration Clonazepam 0.5 mg 09/15/23 21:00 09/16/23 19:44 Clonazepam 0.5 Mg Tab PO 0.5 mg HS ANCA Administration Ferrous Sulfate 325 mg 09/16/23 07:30 09/17/23 06:27 Ferrous Sulfate 325 Mg Tab PO 325 mg BID-W/MEALS ANCA Administration Furosemide 40 mg 09/16/23 09:00 09/17/23 08:44 Furosemide 40 Mg Tab PO 40 mg DAILY ANCA Administration Sodium Chloride 1,000 mls @ 20 mls/hr 09/14/23 22:00 09/16/23 19:41 Saline 0.9% IV Not Given .Q24H ANCA Lactated Ringer's 1,000 mls @ 20 mls/hr 09/17/23 07:33 09/17/23 08:14 Lactated Ringers IV Not Given .Q24H ANCA Lidocaine HCl 0.1 ml 09/17/23 07:33 Lidocaine 1% (10mg/Ml) For Iv Start INTRADERMA PER PROTOCOL PRN IV Start Morphine Sulfate 4 mg 09/14/23 21:49 Morphine Sulfate 4 Mg/Ml Syringe IV Q4HR PRN Severe Pain (Scale 7 to 10) Naloxone HCl 0.2 mg 09/14/23 21:49 Naloxone 0.4 Mg/Ml 1 Ml Vial IV Q2M PRN Opioid Reversal Nicotine 1 patch 09/15/23 09:00 09/17/23 08:44 Nicotine 14mg/24hr Patch TRANSDERM 1 patch DAILY ANCA Administration Ondansetron HCl 4 mg 09/14/23 21:49 Ondansetron 4 Mg/2 Ml Vial IVP Q8HR PRN Nausea And Vomiting Pantoprazole Sodium 40 mg 09/15/23 13:30 09/17/23 08:43 Pantoprazole 40 Mg/10 Ml Vial IVP 40 mg DAILY ANCA Administration Polyethylene Glycol 17 gm 09/15/23 07:04 Polyethylene Glycol 3350 17 Gm Powd.Pack PO DAILY PRN Constipation Polyethylene Glycol/Electrolytes 4,000 ml 09/18/23 09:00 Peg 3350 (236 Gm/Btl) + Lytes 4,000 Ml Bottle PO 09/18/23 09:01 ONCE ONE Potassium Chloride 40 meq 09/15/23 09:00 09/17/23 08:43 Potassium Chloride Er 20 Meq Tab.Er PO 40 meq DAILY ANCA Administration Objective - Vital Signs Vital signs: Vital Signs Temp 98.8 F 09/17/23 07:20 Pulse 88 09/17/23 11:48 Resp 18 09/17/23 11:48 BP 102/62 09/17/23 07:20 Pulse Ox 99 09/17/23 07:20 FiO2 Intake & Output 09/16/23 09/17/23 09/17/23 18:59 06:59 18:59 Output Total 200 Balance -200 Output: Urine 200 Other: # Voids 4 - Exam GENERAL: The patient is alert and oriented x3, not in any acute distress. Well developed, well nourished. HEENT: Pupils are round and equally reacting to light. EOMI. No scleral icterus. No conjunctival pallor. Normocephalic, atraumatic. No pharyngeal erythema. No thyromegaly. CARDIOVASCULAR: S1 and S2 present. No murmurs, rubs, or gallops. PULMONARY: Chest is clear to auscultation, no wheezing , no crackles. ABDOMEN: Soft, nontender, nondistended, normoactive bowel sounds. No palpable organomegaly. MUSCULOSKELETAL: No joint swelling or deformity. EXTREMITIES: No cyanosis, clubbing, or pedal edema. NEUROLOGICAL: Gross neurological examination did not reveal any focal deficits. SKIN: No rashes. no petechiae. - Labs CBC & Chem 7: 09/17/23 05:53 09/17/23 05:53 Labs: Abnormal Lab Results - Last 24 Hours (Table) 09/17/23 09/17/23 Range/Units 05:53 05:53 RBC 2.51 L (4.40-5.60) X 10*6/uL Hgb 7.2 L (13.0-17.0) d/dL Hct 24.8 L (39.6-50.0) % MCV 98.8 H (80.0-97.0) FL MCHC 29.0 L (32.0-37.0) d/dL RDW 16.6 H (11.5-14.5) % BUN/Creatinine Ratio 24.00 H (12.00-20.00) Ratio Assessment and Plan Assessment: Acute blood loss anemia Acute GI bleed, possible Recent history of severe triple-vessel coronary artery disease status post CABG and mitral valve repair on 07/27/2023 Chronic kidney disease stage II History of GERD Chronic atrial fibrillation Plan: Hold aspirin and Eliquis till cleared by surgery Surgical team are planning to do EGD and endoscopy on this coming Tuesday Patient medically stable to undergo for procedures however he still at risk but benefits more than risk. Cardiology consult Labs and medication were reviewed.. Continue same treatment. Continue with symptomatic treatment. Resume home medication. Monitor labs and vitals. DVT and GI prophylaxis. Further recommendations as per clinical course of the patient DVT prophylaxis: Hold anticoagulation for possible GI bleed GI Prophylaxis: Ppi Prognosis is guarded
[2023-09-17] MEDS ORDERED: allopurinoL 100 MG TAB PO STA (14:40)
--- NOTE | 2023-09-17 16:54 | P.PN ---
Subjective Progress Note Date: 09/17/23 HISTORY OF PRESENT ILLNESS: This is a 73-year-old male with a past medical history significant for coronary artery disease with recent 3 vessel CABG, mitral valve repair, tricuspid valve repair, pacemaker implantation, hypertension, hyperlipidemia, COPD, anemia, and nicotine dependence. Patient follows in the office with Dr. Higuera. We have been asked to see the patient in consultation for coronary artery disease. Patient examined at the bedside. Patient states he has been feeling weak at home for the past 5-7 days. He reports he has been having black stools since having his CABG in July. It is noted that the patient is on oral iron twice a day on an outpatient basis. Hemoglobin today is 7.4. His Eliquis has been placed on hold. He has received 1 unit packed RBCs. General surgery has been consulted and is planning for endoscopy. * EKG reveals paced rhythm * Chest xray mild cardiomegaly with small left pleural effusion and fairly moderate central vascular congestion. Findings are consistent with continued CHF exacerbation * Most recent echocardiogram obtained in August 2023 revealed ejection fraction 50-55% 09/17/2023 He reports that he felt better after the blood transfusion. He breathing is feeling ok, still has some congestion. Denies any chest pain or pressure. Hgb 7.2. PHYSICAL EXAM: VITAL SIGNS: Reviewed. GENERAL: Well-developed in no acute distress. HEENT: Head is normocephalic. Pupils are equal, round. Sclerae anicteric. Mucous membranes of the mouth are moist. LUNGS: Respirations even and unlabored. Lungs essentially clear to auscultation bilaterally. HEART: Regular rate and rhythm. S1 and S2 heard. Systolic murmur noted. ABDOMEN: Soft. Nondistended. Nontender. EXTREMITIES: Normal range of motion. No clubbing or cyanosis. Peripheral pulses intact. No lower extremity edema NEUROLOGIC: Awake and alert. Oriented x 3. ASSESSMENT: Anemia with melanotic stools, on iron outpatient, hemoglobin fairly stable since CABG in July 2023 Coronary artery disease with recent 3 vessel CABG, MV repair, and TV repair, July 2023 Paroxysmal atrial fibrillation History of permanent pacemaker implantation Hypertension Hyperlipidemia COPD Nicotine dependence PLAN: Continue current cardiac medications Eliquis remains on hold Patient scheduled for endoscopy with general surgery on Tuesday No absolute contraindications from a cardiac standpoint for patient to proceed with endoscopy Ideally, recommend aspirin when cleared by GI Further recommendations pending patient's course Nurse practitioner note has been reviewed by physician. Signing provider agrees with the documented findings, assessment, and plan of care. Objective - Vital Signs Vital signs: Vital Signs Temp 98.3 F 09/17/23 13:57 Pulse 82 09/17/23 15:59 Resp 18 09/17/23 13:57 BP 104/68 09/17/23 13:57 Pulse Ox 100 09/17/23 13:57 FiO2 Intake & Output 09/16/23 09/17/23 09/17/23 18:59 06:59 18:59 Output Total 200 Balance -200 Output: Urine 200 Other: # Voids 4 - Labs CBC & Chem 7: 09/17/23 05:53 09/17/23 05:53 Labs: Abnormal Lab Results - Last 24 Hours (Table) 09/17/23 09/17/23 Range/Units 05:53 05:53 RBC 2.51 L (4.40-5.60) X 10*6/uL Hgb 7.2 L (13.0-17.0) d/dL Hct 24.8 L (39.6-50.0) % MCV 98.8 H (80.0-97.0) FL MCHC 29.0 L (32.0-37.0) d/dL RDW 16.6 H (11.5-14.5) % BUN/Creatinine Ratio 24.00 H (12.00-20.00) Ratio
[2023-09-17] MEDS: clonazePAM 0.5 MG TAB PO SCH (21:39)
[2023-09-17] MEDS: ATORVASTATIN 20 MG TAB PO SCH (21:39)
[2023-09-17] MEDS: SODIUM CHLORIDE 0.9% 1,000 ML IV SCH (23:14)
[2023-09-18] MEDS: FERROUS SULFATE 325 MG TAB PO SCH ×2 (06:53→17:23)
[2023-09-18] MEDS: IPRATROPIUM-ALBUTEROL 3 ML NEB INHALATION SCH ×4 (08:21→20:59)
[2023-09-18] MEDS: SYMBICORT 80-4.5 MCG INHALER INHALATION SCH ×2 (08:22→20:59)
[2023-09-18] MEDS: LACTATED RINGERS 1,000 ML IV SCH (08:58)
[2023-09-18] MEDS ORDERED: PEG 3350 (236 GM/BTL) + LYTES 4,000 ML BOTTLE PO ONE (09:00)
[2023-09-18] MEDS: CHOLECALCIFEROL 25 MCG (1000 IU) TABLET PO SCH (10:02)
[2023-09-18] MEDS: POTASSIUM CHLORIDE ER 20 MEQ TAB.ER PO SCH (10:02)
[2023-09-18] MEDS: FUROSEMIDE 40 MG TAB PO SCH (10:02)
[2023-09-18] MEDS: CITALOPRAM HYDROBROMIDE 20 MG TAB PO SCH (10:02)
[2023-09-18] MEDS: NICOTINE 14MG/24HR PATCH TRANSDERM SCH (10:03)
[2023-09-18] MEDS: PANTOPRAZOLE 40 MG/10 ML VIAL IVP SCH (11:01)
--- NOTE | 2023-09-18 11:33 | P.PN ---
Subjective Progress Note Date: 09/18/23 Patient reports no abdominal pain. He is tolerating his prep. EGD/Colon for GI bleed. Patient encouraged to complete prep for clear stools. He is elevated risk due to pre-existing heart disease Objective - Vital Signs Vital signs: Vital Signs Temp 97.9 F 09/18/23 07:05 Pulse 92 09/18/23 08:34 Resp 16 09/18/23 07:05 BP 100/65 09/18/23 07:05 Pulse Ox 96 09/18/23 08:23 FiO2 Intake & Output 09/17/23 09/18/23 09/18/23 18:59 06:59 18:59 Intake Total 240 Balance 240 Intake: Oral 240 Other: Voiding Method Toilet # Voids 2 3 - Labs CBC & Chem 7: 09/17/23 05:53 09/17/23 05:53
[2023-09-18] MEDS: ASCORBIC ACID 500 MG TAB PO SCH (11:38)
--- NOTE | 2023-09-18 11:49 | P.PN ---
Subjective This is a pleasant 73 years old male who was recently discharged from the hospital and he was hospitalized on 07/27/2023 4 severe triple-vessel coronary artery disease and mitral valve disease status post bypass grafting procedure and mitral valve repair. He was discharged on aspirin 81 mg and Ellik was 5 mg at home. Hip presents with low hemoglobin at 6.9 sent by his PCP Dr. Holloway. Patient has been having exertional dyspnea which is improved with blood transfusion and his hemoglobin improved to 8 yesterday and today is 7.4. Patient lying in bed looks comfortable no chest pain no dyspnea and no exertional dyspnea and no other complaints. Patient already followed by cardiothoracic surgery team and the recommend to continue the same treatment Aspirin and Eliquis remain on hold 09/17/2023 Patient with no complaint today. No shortness of breath, no abdominal pain or tenderness. Patient says he didn't have bowel movement yesterday or today. no signs of active bleeding as per patient Hemoglobin 7.2 Eliquis and aspirin are remain on hold. Continue with IV Protonix Plan for endoscopy on Tuesday There is no indication of from medical point of view to proceed with endoscopic 09/18/2023 Patient tenderness is better, his eating is average No bowel movement yet. Abdomen soft. Repeat hemoglobin pending. Eliquis is on hold, aspirin on hold Plan for EGD with surgery today Objective - Vital Signs Vital signs: Vital Signs Temp 97.9 F 09/18/23 07:05 Pulse 92 09/18/23 08:34 Resp 16 09/18/23 07:05 BP 100/65 09/18/23 07:05 Pulse Ox 96 09/18/23 08:23 FiO2 Intake & Output 09/17/23 09/18/23 09/18/23 18:59 06:59 18:59 Intake Total 240 Balance 240 Intake: Oral 240 Other: Voiding Method Toilet # Voids 2 3 - Exam GENERAL: The patient is alert and oriented x3, not in any acute distress. Well developed, well nourished. HEENT: Pupils are round and equally reacting to light. EOMI. No scleral icterus. No conjunctival pallor. Normocephalic, atraumatic. No pharyngeal erythema. No thyromegaly. CARDIOVASCULAR: S1 and S2 present. No murmurs, rubs, or gallops. PULMONARY: Chest is clear to auscultation, no wheezing , no crackles. ABDOMEN: Soft, nontender, nondistended, normoactive bowel sounds. No palpable organomegaly. MUSCULOSKELETAL: No joint swelling or deformity. EXTREMITIES: No cyanosis, clubbing, or pedal edema. NEUROLOGICAL: Gross neurological examination did not reveal any focal deficits. SKIN: No rashes. no petechiae. - Labs CBC & Chem 7: 09/17/23 05:53 09/17/23 05:53 Assessment and Plan Assessment: Acute blood loss anemia Acute GI bleed, possible Recent history of severe triple-vessel coronary artery disease status post CABG and mitral valve repair on 07/27/2023 Chronic kidney disease stage II History of GERD Chronic atrial fibrillation Plan: Hold aspirin and Eliquis till cleared by surgery Surgical team are planning to do EGD and endoscopy on this coming Tuesday Patient medically stable to undergo for procedures however he still at risk but benefits more than risk. Cardiology consult Labs and medication were reviewed.. Continue same treatment. Continue with symptomatic treatment. Resume home medication. Monitor labs and vitals. DVT and GI prophylaxis. Further recommendations as per clinical course of the patient DVT prophylaxis: Hold anticoagulation for possible GI bleed GI Prophylaxis: Ppi Prognosis is guarded
[2023-09-18 12:07] LABS: Anisocytosis Slight; HCT 26.9 % (39.0-53.0); HGB 7.9 gm/dL (13.0-17.5); Hypochromasia Marked; MCHC 29.5 g/dL (31.0-37.0); MCV 98.4 fL (80.0-100.0); Macrocytosis Slight; Platelet Count 219 k/uL (150-450); Poikilocytosis Moderate; RBC 2.74 m/uL (4.30-5.90); RDW 16.1 % (11.5-15.5)
--- NOTE | 2023-09-18 13:36 | P.PN ---
Subjective Progress Note Date: 09/18/23 HISTORY OF PRESENT ILLNESS: This is a 73-year-old male with a past medical history significant for coronary artery disease with recent 3 vessel CABG, mitral valve repair, tricuspid valve repair, pacemaker implantation, hypertension, hyperlipidemia, COPD, anemia, and nicotine dependence. Patient follows in the office with Dr. Higuera. We have been asked to see the patient in consultation for coronary artery disease. Patient examined at the bedside. Patient states he has been feeling weak at home for the past 5-7 days. He reports he has been having black stools since having his CABG in July. It is noted that the patient is on oral iron twice a day on an outpatient basis. Hemoglobin today is 7.4. His Eliquis has been placed on hold. He has received 1 unit packed RBCs. General surgery has been consulted and is planning for endoscopy. * EKG reveals paced rhythm * Chest xray mild cardiomegaly with small left pleural effusion and fairly moderate central vascular congestion. Findings are consistent with continued CHF exacerbation * Most recent echocardiogram obtained in August 2023 revealed ejection fraction 50-55% 09/17/2023 He reports that he felt better after the blood transfusion. He breathing is feeling ok, still has some congestion. Denies any chest pain or pressure. Hgb 7.2. 09/18/2023 He is doing ok. Denies any chest pain or pressure. Breathing remains stable. Hgb 7.9. PHYSICAL EXAM: VITAL SIGNS: Reviewed. GENERAL: Well-developed in no acute distress. LUNGS: Respirations even and unlabored. Lungs essentially clear to auscultation bilaterally. HEART: Regular rate and rhythm. S1 and S2 heard. Systolic murmur noted. ABDOMEN: Soft. Nondistended. Nontender. EXTREMITIES: Normal range of motion. No clubbing or cyanosis. Peripheral pulses intact. No lower extremity edema NEUROLOGIC: Awake and alert. Oriented x 3. ASSESSMENT: Anemia with melanotic stools, on iron outpatient, hemoglobin fairly stable since CABG in July 2023 Coronary artery disease with recent 3 vessel CABG, MV repair, and TV repair, July 2023 Paroxysmal atrial fibrillation History of permanent pacemaker implantation Hypertension Hyperlipidemia COPD Nicotine dependence PLAN: Continue current cardiac medications Eliquis remains on hold Patient scheduled for endoscopy with general surgery on Wednesday 09/19 No absolute contraindications from a cardiac standpoint for patient to proceed with endoscopy Ideally, recommend aspirin when cleared by GI Further recommendations pending patient's course Nurse practitioner note has been reviewed by physician. Signing provider agrees with the documented findings, assessment, and plan of care. Objective - Vital Signs Vital signs: Vital Signs Temp 97.9 F 09/18/23 07:05 Pulse 92 09/18/23 08:34 Resp 16 09/18/23 07:05 BP 100/65 09/18/23 07:05 Pulse Ox 96 09/18/23 08:23 FiO2 Intake & Output 09/17/23 09/18/23 09/18/23 18:59 06:59 18:59 Intake Total 240 Balance 240 Intake: Oral 240 Other: Voiding Method Toilet # Voids 2 3 - Labs CBC & Chem 7: 09/18/23 11:12 09/17/23 05:53 Labs: Abnormal Lab Results - Last 24 Hours (Table) 09/18/23 Range/Units 11:12 RBC 2.74 L (4.30-5.90) m/uL Hgb 7.9 L (13.0-17.5) gm/dL Hct 26.9 L (39.0-53.0) % MCHC 29.5 L (31.0-37.0) g/dL RDW 16.1 H (11.5-15.5) %
[2023-09-18] MEDS: SODIUM CHLORIDE 0.9% 1,000 ML IV SCH (21:17)
[2023-09-18] MEDS: clonazePAM 0.5 MG TAB PO SCH (21:23)
[2023-09-18] MEDS: ATORVASTATIN 20 MG TAB PO SCH (21:23)
[2023-09-19 04:58] LABS: Anisocytosis Slight; HCT 28.3 % (39.0-53.0); HGB 8.4 gm/dL (13.0-17.5); Hypochromasia Marked; MCH 29.2 pg (25.0-35.0); MCHC 29.6 g/dL (31.0-37.0); MCV 98.5 fL (80.0-100.0); Macrocytosis Slight; Mean Platelet Volume 8.1; Platelet Count 223 k/uL (150-450); Poikilocytosis Moderate; RBC 2.87 m/uL (4.30-5.90); RDW 16.1 % (11.5-15.5); WBC 4.7 k/uL (3.8-10.6)
[2023-09-19 05:02] LABS: African American GFR (CKD) 88 (>60 ml/min/1.73 sqM); Anion Gap 9 mmol/L; Blood Urea Nitrogen 15 mg/dL (9-20); Calcium 8.6 mg/dL (8.4-10.2); Carbon Dioxide 30 mmol/L (22-30); Chloride 94 mmol/L (98-107); Glucose 75 mg/dL (74-99); Non-African American GFR(CKD) 76 (>60 ml/min/1.73 sqM); Potassium 4.1 mmol/L (3.5-5.1); Sodium 133 mmol/L (137-145)
[2023-09-19] MEDS: FERROUS SULFATE 325 MG TAB PO SCH ×2 (06:26→17:31)
[2023-09-19] MEDS: LACTATED RINGERS 1,000 ML IV SCH (06:40)
[2023-09-19] MEDS: SYMBICORT 80-4.5 MCG INHALER INHALATION SCH (08:52)
[2023-09-19] MEDS: IPRATROPIUM-ALBUTEROL 3 ML NEB INHALATION SCH ×3 (08:52→16:43)
[2023-09-19] MEDS: PANTOPRAZOLE 40 MG/10 ML VIAL IVP SCH (09:00)
[2023-09-19] MEDS ORDERED: GLYCOPYRROLATE 0.2 MG/ML 2 ML VIAL ONE (09:25)
[2023-09-19] MEDS ORDERED: PROPOFOL 10 MG/ML 20 ML VIAL IV ONE (09:25)
[2023-09-19] MEDS ORDERED: LIDOCAINE 2% (PF) 20 MG/ML 5 ML VIAL ONE (09:25)
[2023-09-19] MEDS ORDERED: LACTATED RINGERS 1,000 ML IV ONE (09:56)
--- NOTE | 2023-09-19 10:01 | P.PCN ---
Date of Procedure: 09/19/23 Procedure(s) Performed: PREOPERATIVE DIAGNOSIS: GI bleed and anemia POSTOPERATIVE DIAGNOSIS: Mild gastritis, cecal AVM, transverse colon polyp, diverticulosis PROCEDURE: 1. EGD with biopsy 2. Colonoscopy with fulguration and snare polypectomy [place] [facility] [place]: Alex Dick M.D. SPECIMENS: Antrum, body of stomach, transverse colon polyp ENDOSCOPIC PROCEDURE: The patient was on the endoscopy table in the left decubitus position. The Olympus gastroscope was inserted into the oropharynx and passed under direct visualization to the region of the third portion of the duodenum. From that point the scope was slowly withdrawn inspecting all surfaces carefully. There were no neoplastic inflammatory or polypoid lesions throughout the duodenum. The pylorus was widely patent. The stomach was carefully inspected. There was mild diffuse gastritis present. A biopsy of the antrum took place to rule out H. pylori. A biopsy of the body of stomach also took place. Retroflexion revealed a normal hiatus. The esophagus was then carefully examined. There were no neoplastic inflammatory or polypoid lesions throughout the visualized esophagus. The patient was kept on the endoscopy table in the left decubitus position. The Olympus colonoscope was inserted into the anus and passed under direct visualization to the base of the cecum. The appendiceal orifice was visualized. From that point the scope was slowly withdrawn inspecting all surfaces carefully. There was noted to be a less than 1 cm AVM on the ileocecal valve itself. This was not bleeding. This was treated with argon beam coagulation. The remainder of the cecum and ascending colon appeared normal. In the transverse colon a small polyp was seen and removed using the snare with cautery technique. The remainder of the transverse descending sigmoid and rectum appeared normal. There was mild left-sided diverticulosis. Digital rectal examination was normal. The patient was taken to the recovery room in stable condition per anesthesia guidelines. RECOMMENDATIONS: Resume diet. Await biopsy results. Source of bleeding could have been gastritis or the AVM. A discharge from my standpoint. Follow-up as needed.
[2023-09-19] MEDS: CHOLECALCIFEROL 25 MCG (1000 IU) TABLET PO SCH (10:17)
[2023-09-19] MEDS: NICOTINE 14MG/24HR PATCH TRANSDERM SCH (10:18)
[2023-09-19] MEDS: FUROSEMIDE 40 MG TAB PO SCH (10:18)
[2023-09-19] MEDS: CITALOPRAM HYDROBROMIDE 20 MG TAB PO SCH (10:18)
[2023-09-19] MEDS: POTASSIUM CHLORIDE ER 20 MEQ TAB.ER PO SCH (10:18)
--- NOTE | 2023-09-19 11:46 | P.PN ---
Subjective Progress Note Date: 09/19/23 HISTORY OF PRESENT ILLNESS: This is a 73-year-old male with a past medical history significant for coronary artery disease with recent 3 vessel CABG, mitral valve repair, tricuspid valve repair, pacemaker implantation, hypertension, hyperlipidemia, COPD, anemia, and nicotine dependence. Patient follows in the office with Dr. Higuera. We have been asked to see the patient in consultation for coronary artery disease. Patient examined at the bedside. Patient states he has been feeling weak at home for the past 5-7 days. He reports he has been having black stools since having his CABG in July. It is noted that the patient is on oral iron twice a day on an outpatient basis. Hemoglobin today is 7.4. His Eliquis has been placed on hold. He has received 1 unit packed RBCs. General surgery has been consulted and is planning for endoscopy. * EKG reveals paced rhythm * Chest xray mild cardiomegaly with small left pleural effusion and fairly moderate central vascular congestion. Findings are consistent with continued CHF exacerbation * Most recent echocardiogram obtained in August 2023 revealed ejection fraction 50-55% 09/17/2023 He reports that he felt better after the blood transfusion. He breathing is feeling ok, still has some congestion. Denies any chest pain or pressure. Hgb 7.2. 09/18/2023 He is doing ok. Denies any chest pain or pressure. Breathing remains stable. Hgb 7.9. 09/19 Patient is seen today in follow-up. He is scheduled for upper and lower endoscopy with Dr. Dick today. He states the bleeding is less now. No chest pain. Cough and wheezing is improving. His hemoglobin is stable at 8.4. C reatinine 0.98, BUN 15. Blood pressure 92/51, heart rate in the 70s and 80s. Telemetry is ventricular paced rhythm. PHYSICAL EXAM: VITAL SIGNS: Reviewed. GENERAL: Well-developed in no acute distress. LUNGS: Respirations even and unlabored. Lungs essentially clear to auscultation bilaterally. HEART: Regular rate and rhythm. S1 and S2 heard. Systolic murmur noted. ABDOMEN: Soft. Nondistended. Nontender. EXTREMITIES: Normal range of motion. No clubbing or cyanosis. Peripheral pulses intact. No lower extremity edema NEUROLOGIC: Awake and alert. Oriented x 3. ASSESSMENT: Anemia with melanotic stools, on iron outpatient, hemoglobin fairly stable since CABG in July 2023 Coronary artery disease with recent 3 vessel CABG, MV repair, and TV repair, July 2023 Paroxysmal atrial fibrillation History of permanent pacemaker implantation Hypertension Hyperlipidemia COPD Nicotine dependence PLAN: Continue current cardiac medications Balaji remains on hold Patient scheduled for endoscopy with general surgery on Wednesday 09/19 No absolute contraindications from a cardiac standpoint for patient to proceed with endoscopy Ideally, recommend aspirin when cleared by GI Further recommendations pending patient's course Nurse practitioner note has been reviewed by physician. Signing provider agrees with the documented findings, assessment, and plan of care. Objective - Vital Signs Vital signs: Vital Signs Temp 98.4 F 09/19/23 02:00 Pulse 80 09/19/23 02:00 Resp 17 09/19/23 02:00 BP 100/61 09/19/23 02:00 Pulse Ox 96 09/19/23 02:00 FiO2 Intake & Output 09/18/23 09/19/23 09/19/23 18:59 06:59 18:59 Other: Voiding Method Toilet # Voids 3 4 # Bowel Movements 1 3 - Labs CBC & Chem 7: 09/19/23 04:09 09/19/23 04:09 Labs: Abnormal Lab Results - Last 24 Hours (Table) 09/18/23 09/19/23 09/19/23 Range/Units 11:12 04:09 04:09 RBC 2.74 L 2.87 L (4.30-5.90) m/uL Hgb 7.9 L 8.4 L (13.0-17.5) gm/dL Hct 26.9 L 28.3 L (39.0-53.0) % MCHC 29.5 L 29.6 L (31.0-37.0) g/dL RDW 16.1 H 16.1 H (11.5-15.5) % Sodium 133 L (137-145) mmol/L Chloride 94 L (98-107) mmol/L
[2023-09-19] MEDS: ASCORBIC ACID 500 MG TAB PO SCH (12:35)
[2023-09-19 15:11] VITALS: BP 107/60; PULSE 64; RESP 16; TEMP 97.7
--- NOTE | 2023-09-20 06:10 | P.DS ---
Providers Date of admission: 09/14/23 21:50 Attending physician: Aditya Castro Consults: 09/15/23 07:09 Consult Physician Urgent Consulting Provider: Alex Dick Consult Reason/Comments: anemia Do you want consulting provider notified?: Yes 09/15/23 13:22 Consult Physician Routine Consulting Provider: Sawyer Rosario Consult Reason/Comments: cad Do you want consulting provider notified?: Yes Primary care physician: Slim Holloway Hospital Course: Diagnoses: Acute GI bleed secondary to mild gastritis on EGD and AVM on ileocecal valve status post argon beam coagulation. Acute blood loss anemia , secondary to above Recent history of severe triple-vessel coronary artery disease status post CABG and mitral valve repair on 07/27/2023 Chronic kidney disease stage II History of GERD Chronic atrial fibrillation Hospital course: This is a pleasant 73 years old male who was recently discharged from the hospital and he was hospitalized on 07/27/2023 4 severe triple-vessel coronary artery disease and mitral valve disease status post bypass grafting procedure and mitral valve repair. He was discharged on aspirin 81 mg and Elliquis 5 mg at home. Hip presents with low hemoglobin at 6.9 sent by his PCP Dr. Holloway. Patient aspirin and Eliquis were put on hold. Patient divided by general surgery team he is status post EGD and colonoscopy showing gastritis and AVM on ileocecal valve status post argon beam coagulation. Which are thought the possible cause of his GI bleed. Patient was treated with antiacids Protonix and he showed interval improvement as well as iron pills and his hemoglobin improved up to 8.4 upon discharge. We discussed the case with Gen. surgery team. There, and to resume aspirin tomorrow and Eliquis on (09/22/2023) and both patient and at bed side verbalized understanding and acceptance Also upon patient request I discussed the case with their daughter doron over the phone and his problems and management plan were discussed with her and also she agrees with the plan. Also she agrees MAKE sure he will follow-up with his PCP, stabilizer operator and general surgeon as instructed below. Patient and risk concerns about his co-pay for Eliquis and they were asking about other options. Patient told me he already has appointment with his stabilizer operator Dr. Higuera in 2 days on 09/21/23 and I encouraged him to discuss with Dr. Higuera other options for anticoagulation like Coumadin and he verbalized understanding and acceptance, also the daughter and were identified and irritable. Patient will be off ANTICOAGULATION until he sees Dr. Higuera anyway. Patient after the procedure was doing well walking and is really denying any chest pain dyspnea. No other new complaints. He was eager to go home today. Patient was cleared for discharge by general surgery teamat cardiology team. Problems and management plan were discussed with the patient and he verbalized understanding and acceptance Patient was found stable and can be discharged home in guarded prognosis however he needs follow-up as an outpatient. Patient was instructed to follow up with PCP Dr. Holloway within one week and patient agrees Patient was instructed with his stabilizer operator Dr. Higuera in 2 days on 09/21 and he agrees. Patient was instructed to follow up with general surgeon Dr. Dick in 1-2 weeks and he is agreeable as well Physical exam Gen: patient is a AAOx3, no distress CVS: S1-S2, RRR, no murmur Lungs: B/L CTA, no wheezing Abdomen: soft, no distention, no tenderness, positive bowel sounds Extremity: no leg edema or induration Time spent more than 35 minutes Patient Condition at Discharge: Fair Plan - Discharge Summary Discharge Rx Participant: No New Discharge Prescriptions: New Metoprolol Tartrate [Lopressor] 12.5 mg PO BID 30 Days #60 tablet Pantoprazole Sodium [Protonix] 40 mg PO DAILY #30 tab Continue Citalopram Hydrobromide [CeleXA] 20 mg PO DAILY Cholecalciferol [Vitamin D3 (25 Mcg = 1000 Iu)] 50 mcg PO DAILY Acetaminophen Tab [Tylenol] 650 mg PO Q4HR PRN tab PRN Reason: Fever and/ or Mild Pain Furosemide [Lasix] 40 mg PO DAILY #30 tablet Ascorbic Acid [Vitamin C] 500 mg PO W/LUNCH Ipratropium-Albuterol Nebulize [Duoneb 0.5 mg-3 mg/3 ml Soln] 3 ml INHALATION RT-QID polyethylene glycoL 3350 [Miralax] 17 gm PO DAILY PRN PRN Reason: Constipation Aspirin 81 mg PO DAILY 30 Days #30 tab Ferrous Sulfate [Iron (65 MG Elemental)] 325 mg PO BID #60 tab Nicotine 14Mg/24Hr Patch [Habitrol] 1 patch TRANSDERM DAILY #30 patch Potassium Chloride ER [K-Dur 10] 10 meq PO DAILY #30 tab clonazePAM [KlonoPIN] 0.5 mg PO HS Atorvastatin [Lipitor] 20 mg PO HS Fluticasone/Umeclidin/Vilanter [Trelegy Ellipta 100-62.5-25] 1 puff INHALATION RT-DAILY Apixaban [Eliquis] 5 mg PO BID #60 tab Discontinued metOLazone [Zaroxolyn] 2.5 mg PO MOWEFR Metoprolol Tartrate [Lopressor] 12.5 mg PO BID Omeprazole Magnesium [PriLOSEC] 20 mg PO DAILY Discharge Medication List Citalopram Hydrobromide [CeleXA] 20 mg PO DAILY 03/07/18 [History] Cholecalciferol [Vitamin D3 (25 Mcg = 1000 Iu)] 50 mcg PO DAILY 12/11/21 [History] Acetaminophen Tab [Tylenol] 650 mg PO Q4HR PRN tab 08/08/23 [Rx] Nicotine 14Mg/24Hr Patch [Habitrol] 1 patch TRANSDERM DAILY #30 patch 08/08/23 [Rx] Furosemide [Lasix] 40 mg PO DAILY #30 tablet 08/12/23 [Rx] Potassium Chloride ER [K-Dur 10] 10 meq PO DAILY #30 tab 08/12/23 [Rx] Ascorbic Acid [Vitamin C] 500 mg PO W/LUNCH 08/29/23 [History] clonazePAM [KlonoPIN] 0.5 mg PO HS 08/29/23 [History] Atorvastatin [Lipitor] 20 mg PO HS 09/14/23 [History] Fluticasone/Umeclidin/Vilanter [Trelegy Ellipta 100-62.5-25] 1 puff INHALATION RT-DAILY 09/14/23 [History] Ipratropium-Albuterol Nebulize [Duoneb 0.5 mg-3 mg/3 ml Soln] 3 ml INHALATION RT-QID 09/14/23 [History] polyethylene glycoL 3350 [Miralax] 17 gm PO DAILY PRN 09/14/23 [History] Apixaban [Eliquis] 5 mg PO BID #60 tab 09/19/23 [Rx] Aspirin 81 mg PO DAILY 30 Days #30 tab 09/19/23 [Rx] Ferrous Sulfate [Iron (65 MG Elemental)] 325 mg PO BID #60 tab 09/19/23 [Rx] Metoprolol Tartrate [Lopressor] 12.5 mg PO BID 30 Days #60 tablet 09/19/23 [Rx] Pantoprazole Sodium [Protonix] 40 mg PO DAILY #30 tab 09/19/23 [Rx] Follow up Appointment(s)/Referral(s): Alex Dick MD [Medical Doctor] - 10 Days (follow up the biopsy resutls ) Sis Higuera MD [STAFF PHYSICIAN] - 09/21/23 (you have appointment with your stabilizer operator in 2 days on (09/21/2023) , we recommend to discuss with him cheaper options for your anticoagulation eg Coumadin( Warfarin) -please call to confirm appointment-) Nakul Quijano,Home Care [NON-STAFF] - As Needed Slim Holloway MD [Primary Care Provider] - 1-2 days Patient Instructions/Handouts: Anemia (DC) Activity/Diet/Wound Care/Special Instructions: heart healthy diet activity is restricted till you see your doctor please keep holding your aspirin till tomorrow, you can resume your baby aspirin tomorrow (09/19/2023) and you can resume your blood thinner Eliquis on (09/22/2023) you have appointment with your stabilizer operator in 2 days on (09/21/2023) , we recommend to discuss with him cheaper options for your anticoagulation eg Coumadin( Warfarin) Discharge Disposition: HOME SELF-CARE
--- NOTE | 2023-09-20 11:51 | CDI ---
Documentation Clarification Form Date: 09/20/2023 11:36:20 AM From: Lisbet Nicole Admit Date: 09/14/2023 09:50:00 PM Patient Name: Francisco Lucio Visit Number: [id number] Discharge Date: 09/19/2023 05:45:00 PM ATTENTION: The Clinical Documentation Specialists (CDI) and [facility] Coding Staff appreciate your assistance in clarifying documentation. Please respond to the clarification below the line at the bottom and electronically sign. The CDI & [facility] Coding staff will review the response and follow-up if needed. Please note: Queries are made part of the Legal Health Record. If you have any questions, please contact the author of this message via ITS. Dr. Sacha Pickens Findings consistent with continued CHF exacerbation per your consult. Additional information regarding the type of CHF is requested. History/Risk Factors: CAD HTN SSS chronic atrial fib Clinical Indicators: moderate vascular congestion VS/Pulse OX: Down to 91 on RA BNP: 1630 Echocardiogram Results: Last Echo August 2023 realved EF of 50-55% Chest X Ray: mild cardiomegaly with small left pleural effusion consistent with CHF exacerbation. Treatment: Home dose Lasix 40 MG PO In your professional opinion, can you please clarify the type of CHF if known? [ ] Acute Systolic Heart Failure (reduced EF) [ ] Chronic Systolic Heart Failure (reduced EF) [ ] Acute on Chronic Systolic Heart Failure (reduced EF) [ ] Acute Diastolic Heart Failure (preserved EF) [X] Chronic Diastolic Heart Failure (preserved EF) [ ] Acute on Chronic Diastolic Heart Failure (preserved EF) [ ] Acute Systolic & Diastolic Heart Failure [ ] Chronic Systolic & Diastolic Heart Failure [ ] Acute on Chronic Heart Failure Systolic & Diastolic Heart Failure [ ] Other, please specify [ ] Unable to determine MTDD
--- NOTE | 2023-09-21 12:56 | CDI ---
Documentation Clarification Form Date: 09/21/2023 12:29:21 PM From: Kat Casas RN, CCDS Email: [email or web address] Admit Date: 09/14/2023 09:50:00 PM Patient Name: Francisco Lucio Visit Number: [id number] Discharge Date: 09/19/2023 05:45:00 PM ATTENTION: The Clinical Documentation Specialists (CDI) and [facility] Coding Staff appreciate your assistance in clarifying documentation. Please respond to the clarification below the line at the bottom and electronically sign. The CDI & [facility] Coding staff will review the response and follow-up if needed. Please note: Queries are made part of the Legal Health Record. If you have any questions, please contact the author of this message via ITS. Dr. Oseguera E Sheet There is documentation of acute GI bleed and the patient was taking Eliquis. Based on this information and the findings below, is there an additional diagnosis that is clinically appropriate for this patient? History/Risk Factors: CAD with recent CABG, anemia, A fib on Eliquis and ASA. Presented with weakness and Hgb of 6.9. Admitted with acute gastritis, acute blood loss anemia and renal failure. Clinical Indicators: 09/15 Surgery consult: "History of atrial fibrillation, on anticoagulation with Eliquis at home. Continue to hold Eliquis." 09/16 IM: "Patient has been having exertional dyspnea which is improved with blood transfusion and his hemoglobin improved to 8 yesterday and today is 7.4. Patient already followed by cardiothoracic surgery team and they recommend to continue the same treatment. 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 Acute blood loss anemia, secondary to above." 09/19 EGD/Colonoscopy: Mild gastritis, cecal AVM, transverse colon polyp, diverticulosis 09/14 PT/PTT/INR: 14.0/31.7/1.3 09/14-09/19 Hgb 7.0-8.0-7.2-8.4 Treatment: Hold Eliquis; Hold ASA Transfusion: 1 unit PRBC's Is there an additional diagnosis that is clinically appropriate for this patient? [ ] Acute GI bleed with mild gastritis due to Eliquis use [ ] Coagulopathy due to Eliquis use [ ] Abnormal coagulation profile [ ] Other, please specify [ ] Unable to determine please refer to the dc summary dx MTDD
== END 2023-09-19 17:45 | disposition home or self-care (01) | DRG 378 ==
LOC: EC 19:37 → 4SSUR 21:50
PROVIDERS: ADMIT Hospitalist; ATTEND Hospitalist
PROC: 30233N1 Transfusion of Nonautologous Red Blood Cells into Peripheral Vein, Percutaneous Approach (ICD-10-PCS; 2023-09-14)
PROC: 0DB78ZX Excision of Stomach, Pylorus, Via Natural or Artificial Opening Endoscopic, Diagnostic (ICD-10-PCS; principal; 2023-09-19 07:30)
PROC: 0DB68ZX Excision of Stomach, Via Natural or Artificial Opening Endoscopic, Diagnostic (ICD-10-PCS; principal; 2023-09-19 07:30)
PROC: 0DBL8ZX Excision of Transverse Colon, Via Natural or Artificial Opening Endoscopic, Diagnostic (ICD-10-PCS; principal; 2023-09-19 07:30)
DX: K29.71 Gastritis, unspecified, with bleeding (principal); D62 Acute posthemorrhagic anemia; N17.9 Acute kidney failure, unspecified; I13.0 Hypertensive heart and chronic kidney disease with heart failure and stage 1 through stage 4 chronic kidney disease, or unspecified chronic kidney disease; K55.21 Angiodysplasia of colon with hemorrhage; E78.5 Hyperlipidemia, unspecified; E87.6 Hypokalemia; F17.210 Nicotine dependence, cigarettes, uncomplicated; I25.10 Atherosclerotic heart disease of native coronary artery without angina pectoris; Z95.1 Presence of aortocoronary bypass graft; I48.0 Paroxysmal atrial fibrillation; Z79.01 Long term (current) use of anticoagulants; K57.30 Diverticulosis of large intestine without perforation or abscess without bleeding; K21.9 Gastro-esophageal reflux disease without esophagitis; I95.9 Hypotension, unspecified; Z95.0 Presence of cardiac pacemaker; I49.5 Sick sinus syndrome; N18.2 Chronic kidney disease, stage 2 (mild); F32.A Depression, unspecified; I08.1 Rheumatic disorders of both mitral and tricuspid valves; I50.9 Heart failure, unspecified; I71.40 Abdominal aortic aneurysm, without rupture, unspecified; J44.9 Chronic obstructive pulmonary disease, unspecified; J98.4 Other disorders of lung
CPT/HCPCS: 36415; 36430; 43239; 45385; 45388; 71045; 80048; 80053; 83735; 83880; 84100; 84145; 84484; 85025; 85027; 85610; 85730; 86850; 86900; 86901; 86920; 88305; 88313; 93005; 94640; 94760; 96374; 99291

== ENCOUNTER 2023-10-10 18:02 | Observation (INO) | payer MEDICARE ==
--- NOTE | 2023-10-10 18:43 | ED ---
General Adult HPI - General Chief complaint: GI Bleed Stated complaint: Bloody stool Time Seen by Provider: 10/10/23 18:15 Source: patient, RN notes reviewed, old records reviewed Mode of arrival: ambulatory Limitations: no limitations - History of Present Illness Initial comments: This is a 73-year-old male who comes to the emergency department complaining that he has had some blood in his urine as well as a little bit of bright red blood in his stool especially when he gets constipated. Patient denies any abdominal pain. Patient denies lightheadedness or dizziness per patient denies chest pain shortness breath or palpitations. Patient states he is a little more fatigued than normal. Patient denies being on any blood thinners. Patient laura es any headache patient denies numbness weakness. Patient denies any recent fever chills or cough. - Related Data Home Medications Medication Instructions Recorded Confirmed Citalopram Hydrobromide [CeleXA] 20 mg PO DAILY 03/07/18 09/14/23 Cholecalciferol [Vitamin D3 (25 50 mcg PO DAILY 12/11/21 09/14/23 Mcg = 1000 Iu)] Ascorbic Acid [Vitamin C] 500 mg PO W/LUNCH 08/29/23 09/14/23 clonazePAM [KlonoPIN] 0.5 mg PO HS 08/29/23 09/14/23 Atorvastatin [Lipitor] 20 mg PO HS 09/14/23 09/14/23 Fluticasone/Umeclidin/Vilanter 1 puff INHALATION RT-DAILY 09/14/23 09/14/23 [Trelegy Ellipta 100-62.5-25] Ipratropium-Albuterol Nebulize 3 ml INHALATION RT-QID 09/14/23 09/14/23 [Duoneb 0.5 mg-3 mg/3 ml Soln] polyethylene glycoL 3350 [Miralax] 17 gm PO DAILY PRN 09/14/23 09/14/23 Previous Rx's Medication Instructions Recorded Acetaminophen Tab [Tylenol] 650 mg PO Q4HR PRN tab 08/08/23 Nicotine 14Mg/24Hr Patch [Habitrol] 1 patch TRANSDERM DAILY #30 patch 08/08/23 Furosemide [Lasix] 40 mg PO DAILY #30 tablet 08/12/23 Potassium Chloride ER [K-Dur 10] 10 meq PO DAILY #30 tab 08/12/23 Apixaban [Eliquis] 5 mg PO BID #60 tab 09/19/23 Aspirin 81 mg PO DAILY 30 Days #30 tab 09/19/23 Ferrous Sulfate [Iron (65 MG 325 mg PO BID #60 tab 09/19/23 Elemental)] Metoprolol Tartrate [Lopressor] 12.5 mg PO BID 30 Days #60 tablet 09/19/23 Pantoprazole Sodium [Protonix] 40 mg PO DAILY #30 tab 09/19/23 Allergies Allergy/AdvReac Type Severity Reaction Status Date / Time No Known Allergies Allergy Verified 10/10/23 18:07 Review of Systems ROS Statement: Those systems with pertinent positive or pertinent negative responses have been documented in the HPI. ROS Other: All systems not noted in ROS Statement are negative. Past Medical History Past Medical History: Atrial Fibrillation, Coronary Artery Disease (CAD), GERD/Reflux, Hyperlipidemia, Hypertension, Renal Disease Additional Past Medical History / Comment(s): Mitral regurgitation; abdominal aortic aneurysm History of Any Multi-Drug Resistant Organisms: None Reported Past Surgical History: Coronary Bypass/CABG, Heart Catheterization, Hernia Repair Additional Past Surgical History / Comment(s): three-vessel CABG with mitral valve repair 07/27/2023 Past Anesthesia/Blood Transfusion Reactions: No Reported Reaction Type of Cardiac Device: Permanent Pacemaker Device Placement Date:: 08/03/2023 [facility] [employer] Past Psychological History: Depression Smoking Status: Current every day smoker Past Alcohol Use History: None Reported Past Drug Use History: None Reported - Past Family History Father Family Medical History: Myocardial Infarction (MS) Additional Family Medical History / Comment(s): at age 90 from a myocardial infarction General Exam - General Exam Comments Initial Comments: GENERAL: Patient is well-developed and well-nourished. Patient is nontoxic and well- hydrated and is in no acute distress. ENT: Neck is soft and supple. No significant lymphadenopathy is noted. Oropharynx is clear. Moist mucous membranes. Neck has full range of motion without eliciting any pain. EYES: The sclera were anicteric and conjunctiva were pink and moist. Extraocular movements were intact and pupils were equal round and reactive to light. Eyelids were unremarkable. PULMONARY: Unlabored respirations. Good breath sounds bilaterally. No audible rales rhonchi or wheezing was noted. CARDIOVASCULAR: There is a regular rate and rhythm without any murmurs gallops or rubs. ABDOMEN: Soft and nontender with normal bowel sounds. SKIN: Skin is clear with no lesions or rashes and otherwise unremarkable. NEUROLOGIC: Patient is alert and oriented x3. Cranial nerves II through XII are grossly intact. Motor and sensory are also intact. Normal speech, volume and content. Symmetrical smile. MUSCULOSKELETAL: Normal extremities with adequate strength and full range of motion. LYMPHATICS: No significant lymphadenopathy is noted PSYCHIATRIC: Normal psychiatric evaluation. Limitations: no limitations Course Vital Signs 10/10/23 10/10/23 10/10/23 18:05 18:43 19:15 Temperature 97.7 F Pulse Rate 82 68 63 Respiratory 18 18 21 Rate Blood Pressure 112/78 105/65 105/65 O2 Sat by Pulse 99 89 L 98 Oximetry Medical Decision Making - Medical Decision Making EKG is interpreted by myself. EKG shows an electronically paced rhythm at 62 bpm QRS is 185 QT interval 5:30 QTC is 536. Patient's EKG also shows an occasional PVC. Was pt. sent in by a medical professional or institution (Dr. PA, CONTROL VALVE TECHNICIAN, urgent care, hospital, or group home...) When possible be specific @ -No Did you speak to anyone other than the patient for history (EMS, parent, family, police, friend...)? What history was obtained from this source @ -No Did you review nursing and triage notes (agree or disagree)? Why? @ -I reviewed and agree with nursing and triage notes Were old charts reviewed (outside hosp., previous admission, EMS record, old EKG, old radiological studies, urgent care reports/EKG's, group home records)? Report findings @ -I reviewed prior charts from prior laboratories on this patient Differential Diagnosis (chest pain, altered mental status, abdominal pain women, abdominal pain men, vaginal bleeding, weakness, fever, dyspnea, syncope, headache, dizziness, GI bleed, back pain, seizure, CVA, palpatations, mental health, musculoskeletal)? @ -Differential GI Bleed: Esophageal varices, aortoenteric fistula, [place], gastritis, peptic ulcer disease, diverticulosis, inflammatory bowel disease, hemorrhoids, fissure, colitis, malignancy, Meckels diverticulum, this is not meant to be an all-inclusive list. EKG interpreted by me (3pts min.). @ -As above X-rays interpreted by me (1pt min.). @ -None done CT interpreted by me (1pt min.). @ -None done U/S interpreted by me (1pt. min.). @ -None done What testing was considered but not performed or refused? (CT, X-rays, U/S, labs)? Why? @ -None What meds were considered but not given or refused? Why? @ -None Did you discuss the management of the patient with other professionals (professionals i.e. , PA, CONTROL VALVE TECHNICIAN, lab, RT, psych nurse, social services analyst, research professional, teacher, asset protection officer, complex case manager)? Give summary @ -I spoke with the [facility] and they agreed to admit the patient Was smoking cessation discussed for >3mins.? @ -No Was critical care preformed (if so, how long)? @ -No Were there social determinants of health that impacted care today? How? (Homelessness, low income, unemployed, alcoholism, drug addiction, transportation, low edu. Level, literacy, decrease access to med. care, senior care, rehab)? @ -No Was there de-escalation of care discussed even if they declined (Discuss DNR or withdrawal of care, Hospice)? DNR status @ -No What co-morbidities impacted this encounter? (DM, HTN, Smoking, COPD, CAD, Cancer, CVA, ARF, Chemo, Hep., AIDS, mental health diagnosis, sleep apnea, morbi d obesity)? @ -None Was patient admitted / discharged? Hospital course, mention meds given and route, prescriptions, significant lab abnormalities, going to OR and other pertinent info. @ -Patient was having some bright red blood per rectum and hematuria. I spoke with [facility] see agreed to admit the patient. I will try and CBC is overnight. I will ultrasound the kidneys. Undiagnosed new problem with uncertain prognosis? @ -No Drug Therapy requiring intensive monitoring for toxicity (Heparin, Nitro, Insulin, Cardizem)? @ -No Were any procedures done? @ -No Diagnosis/symptom? @ -Hematuria Acute, or Chronic, or Acute on Chronic? @ -Acute Uncomplicated (without systemic symptoms) or Complicated (systemic symptoms)? @ -Complicated Side effects of treatment? @ -No Exacerbation, Progression, or Severe Exacerbation? @ -No Poses a threat to life or bodily function? How? (Chest pain, [place], MS, pneumonia, PE, COPD, DKA, ARF, appy, cholecystitis, CVA, Diverticulitis, Homicidal, Suicidal, threat to staff... and all critical care pts) @ -No Diagnosis/symptom? @ -GI bleed Acute, or Chronic, or Acute on Chronic? @ -Acute Uncomplicated (without systemic symptoms) or Complicated (systemic symptoms)? @ -Complicated Side effects of treatment? @ -none Exacerbation, Progression, or Severe Exacerbation] @ -no Poses a threat to life or bodily function? @ -Yes this could lead to anemia and hypoperfusion and end organ dysfunction - Lab Data Result diagrams: 10/10/23 18:47 10/10/23 18:47 Lab Results 10/10/23 10/10/23 10/10/23 Range/Units 18:47 18:47 18:47 WBC 7.3 (3.8-10.6) k/uL RBC 3.34 L (4.30-5.90) m/uL Hgb 10.1 L (13.0-17.5) gm/dL Hct 33.2 L (39.0-53.0) % MCV 99.4 (80.0-100.0) fL MCH 30.1 (25.0-35.0) pg MCHC 30.3 L (31.0-37.0) g/dL RDW 18.2 H (11.5-15.5) % Plt Count 388 (150-450) k/uL MPV 7.8 Neutrophils % 69 % Lymphocytes % 22 % Monocytes % 7 % Eosinophils % 1 % Basophils % 0 % Neutrophils # 5.0 (1.3-7.7) k/uL Lymphocytes # 1.6 (1.0-4.8) k/uL Monocytes # 0.5 (0-1.0) k/uL Eosinophils # 0.0 (0-0.7) k/uL Basophils # 0.0 (0-0.2) k/uL Hypochromasia Marked Anisocytosis Slight Macrocytosis Slight PT 14.3 H (10.0-12.5) sec INR 1.4 H (<1.2) APTT 34.0 H (22.0-30.0) sec Sodium 138 (137-145) mmol/L Potassium 3.8 (3.5-5.1) mmol/L Chloride 103 (98-107) mmol/L Carbon Dioxide 27 (22-30) mmol/L Anion Gap 8 mmol/L BUN 19 (9-20) mg/dL Creatinine 0.91 (0.66-1.25) mg/dL Est GFR (CKD-EPI)AfAm >90 (>60 ml/min/1.73 sqM) Est GFR (CKD-EPI)NonAf 82 (>60 ml/min/1.73 sqM) Glucose 91 (74-99) mg/dL Calcium 9.3 (8.4-10.2) mg/dL Magnesium 2.0 (1.6-2.3) mg/dL Total Bilirubin 1.5 H (0.2-1.3) mg/dL AST 45 (17-59) U/L ALT 15 (4-49) U/L Alkaline Phosphatase 143 H (38-126) U/L Troponin I (0.000-0.034) ng/mL Total Protein 7.4 (6.3-8.2) g/dL Albumin 3.5 (3.5-5.0) g/dL Urine Color Urine Appearance (Clear) Urine pH (5.0-8.0) Ur Specific [place] (1.001-1.035) Urine Protein (Negative) Urine Glucose (UA) (Negative) Urine Ketones (Negative) Urine Blood (Negative) Urine Nitrite (Negative) Urine Bilirubin (Negative) Urine Urobilinogen (<2.0) mg/dL Ur Leukocyte Esterase (Negative) Urine RBC (0-5) /hpf Urine WBC (0-5) /hpf Calcium Oxalate Crystal (None) /hpf Amorphous Sediment (None) /hpf Hyaline Casts (0-2) /lpf Urine Mucus (None) /hpf Blood Type Blood Type Recheck Bld Type Recheck Status Antibody Screen Spec Expiration Date 10/10/23 10/10/23 10/10/23 Range/Units 18:47 18:47 18:48 WBC (3.8-10.6) k/uL RBC (4.30-5.90) m/uL Hgb (13.0-17.5) gm/dL Hct (39.0-53.0) % MCV (80.0-100.0) fL MCH (25.0-35.0) pg MCHC (31.0-37.0) g/dL RDW (11.5-15.5) % Plt Count (150-450) k/uL MPV Neutrophils % % Lymphocytes % % Monocytes % % Eosinophils % % Basophils % % Neutrophils # (1.3-7.7) k/uL Lymphocytes # (1.0-4.8) k/uL Monocytes # (0-1.0) k/uL Eosinophils # (0-0.7) k/uL Basophils # (0-0.2) k/uL Hypochromasia Anisocytosis Macrocytosis PT (10.0-12.5) sec INR (<1.2) APTT (22.0-30.0) sec Sodium (137-145) mmol/L Potassium (3.5-5.1) mmol/L Chloride (98-107) mmol/L Carbon Dioxide (22-30) mmol/L Anion Gap mmol/L BUN (9-20) mg/dL Creatinine (0.66-1.25) mg/dL Est GFR (CKD-EPI)AfAm (>60 ml/min/1.73 sqM) Est GFR (CKD-EPI)NonAf (>60 ml/min/1.73 sqM) Glucose (74-99) mg/dL Calcium (8.4-10.2) mg/dL Magnesium (1.6-2.3) mg/dL Total Bilirubin (0.2-1.3) mg/dL AST (17-59) U/L ALT (4-49) U/L Alkaline Phosphatase (38-126) U/L Troponin I 0.020 (0.000-0.034) ng/mL Total Protein (6.3-8.2) g/dL Albumin (3.5-5.0) g/dL Urine Color Light Red Urine Appearance Clear (Clear) Urine pH 6.0 (5.0-8.0) Ur Specific [place] 1.014 (1.001-1.035) Urine Protein Trace H (Negative) Urine Glucose (UA) Negative (Negative) Urine Ketones Trace H (Negative) Urine Blood Large H (Negative) Urine Nitrite Negative (Negative) Urine Bilirubin Negative (Negative) Urine Urobilinogen <2.0 (<2.0) mg/dL Ur Leukocyte Esterase Small H (Negative) Urine RBC >182 H (0-5) /hpf Urine WBC 4 (0-5) /hpf Calcium Oxalate Crystal Rare H (None) /hpf Amorphous Sediment Rare H (None) /hpf Hyaline Casts 38 H (0-2) /lpf Urine Mucus Few H (None) /hpf Blood Type O Positive Blood Type Recheck O Pos Bld Type Recheck Status No Antibody Screen NEGATIVE Spec Expiration Date 10/13/20232347 Disposition Clinical Impression: GI bleed, Hematuria Disposition: [facility] Referrals: Slim Holloway MD [Primary Care Provider] - 1-2 days Time of Disposition: 21:17
[2023-10-10 19:20] LABS: Anisocytosis Slight; Basophils % (A) 0 %; Eosinophils % (A) 1 %; HCT 33.2 % (39.0-53.0); HGB 10.1 gm/dL (13.0-17.5); Hypochromasia Marked; Lymphocytes # (A) 1.6 k/uL (1.0-4.8); Lymphocytes % (A) 22 %; MCH 30.1 pg (25.0-35.0); MCHC 30.3 g/dL (31.0-37.0); MCV 99.4 fL (80.0-100.0); Macrocytosis Slight; Mean Platelet Volume 7.8; Monocytes # (A) 0.5 k/uL (0-1.0); Monocytes % (A) 7 %; Neutrophils % (A) 69 %; Platelet Count 388 k/uL (150-450); RBC 3.34 m/uL (4.30-5.90); RDW 18.2 % (11.5-15.5); WBC 7.3 k/uL (3.8-10.6)
[2023-10-10 19:26] LABS: Amorphous Sediment,Urine Rare /hpf; Appearance,Urine Clear (Clear); Bilirubin,Urine Negative (Negative); Blood,Urine Large (Negative); Calcium Oxalate Crystals,Urine Rare /hpf; Color,Urine Light Red; Glucose,Urine (UA) Negative (Negative); Hyaline Casts,Urine 38 /lpf (0-2); Ketones,Urine Trace (Negative); Leukocyte Esterase,Urine Small (Negative); Mucus,Urine Few /hpf; Nitrite,Urine Negative (Negative); Protein,Urine Trace (Negative); RBC,Urine >182 /hpf (0-5); Specific Gravity,Urine 1.014 (1.001-1.035); Urobilinogen,Urine <2.0 mg/dL (<2.0); WBC,Urine 4 /hpf (0-5)
[2023-10-10 19:28] LABS: INR 1.4 (<1.2); Prothrombin Time 14.3 sec (10.0-12.5)
[2023-10-10 19:36] LABS: ALT 15 U/L (4-49); African American GFR (CKD) >90 (>60 ml/min/1.73 sqM); Albumin 3.5 g/dL (3.5-5.0); Anion Gap 8 mmol/L; Blood Urea Nitrogen 19 mg/dL (9-20); Calcium 9.3 mg/dL (8.4-10.2); Carbon Dioxide 27 mmol/L (22-30); Chloride 103 mmol/L (98-107); Glucose 91 mg/dL (74-99); Non-African American GFR(CKD) 82 (>60 ml/min/1.73 sqM); Sodium 138 mmol/L (137-145); Total Bilirubin 1.5 mg/dL (0.2-1.3); Total Protein 7.4 g/dL (6.3-8.2)
[2023-10-10 19:40] LABS: AST 45 U/L (17-59); Alkaline Phosphatase 143 U/L (38-126); Potassium 3.8 mmol/L (3.5-5.1)
[2023-10-10] MEDS ORDERED: SODIUM CHLORIDE 0.9% 1,000 ML IV ONE (21:17)
--- NOTE | 2023-10-10 21:54 | US ---
EXAMINATION TYPE: US kidneys/renal and bladder DATE OF EXAM: 10/10/2023 COMPARISON: NONE CLINICAL INDICATION: Male, 73 years old with history of Hematuria; hematuria x 2 weeks. Pt states no difficulty urinating EXAM MEASUREMENTS: Right Kidney: 10.0 x 4.9 x 5.0 cm Left Kidney: 10.1 x 5.1 x 4.5 cm Right Kidney: Small anechoic area seen in inf pole measuring 0.9 x 0.8 x 0.7cm Left Kidney: Cystic area seen measuring 1.5 x 1.0 x 0.9cm Bladder: Limited due to being emptyy Bilateral Jets seen: No There is no evidence for hydronephrosis at this point in time. No nephrolithiasis is seen. No chaz s are identified. The urinary bladder is anechoic. Bilateral ureteral jets are seen. Incidental finding - pleural effusion seen on the left side IMPRESSION: No evidence for obstructive uropathy. Cortical medullary differentiation maintained. No renal calculi definitively visualized.
[2023-10-11 01:44] LABS: Anisocytosis Slight; Basophils % (A) 1 %; Eosinophils # (A) 0.1 k/uL (0-0.7); Eosinophils % (A) 1 %; HCT 30.9 % (39.0-53.0); HGB 9.4 gm/dL (13.0-17.5); Hypochromasia Marked; Lymphocytes # (A) 1.6 k/uL (1.0-4.8); Lymphocytes % (A) 33 %; MCH 30.4 pg (25.0-35.0); MCHC 30.4 g/dL (31.0-37.0); MCV 99.9 fL (80.0-100.0); Macrocytosis Moderate; Mean Platelet Volume 7.9; Monocytes # (A) 0.4 k/uL (0-1.0); Monocytes % (A) 8 %; Neutrophils # (A) 2.5 k/uL (1.3-7.7); Neutrophils % (A) 54 %; Platelet Count 271 k/uL (150-450); RBC 3.09 m/uL (4.30-5.90); RDW 18.3 % (11.5-15.5); WBC 4.6 k/uL (3.8-10.6)
[2023-10-11 07:00] LABS: Anisocytosis Slight; Basophils % (A) 0 %; Eosinophils # (A) 0.1 k/uL (0-0.7); Eosinophils % (A) 2 %; HCT 32.8 % (39.0-53.0); HGB 9.6 gm/dL (13.0-17.5); Hypochromasia Marked; Lymphocytes # (A) 1.6 k/uL (1.0-4.8); Lymphocytes % (A) 28 %; MCH 29.6 pg (25.0-35.0); MCHC 29.1 g/dL (31.0-37.0); MCV 101.6 fL (80.0-100.0); Macrocytosis Moderate; Mean Platelet Volume 7.6; Monocytes # (A) 0.4 k/uL (0-1.0); Monocytes % (A) 7 %; Neutrophils # (A) 3.5 k/uL (1.3-7.7); Neutrophils % (A) 61 %; Platelet Count 297 k/uL (150-450); RBC 3.23 m/uL (4.30-5.90); RDW 18.2 % (11.5-15.5); WBC 5.7 k/uL (3.8-10.6)
[2023-10-11] MEDS ORDERED: MELATONIN 3 MG TABLET PO PRN (09:42)
[2023-10-11] MEDS ORDERED: bisacodyL 5 MG TABLET.DR PO PRN (09:42)
[2023-10-11] MEDS ORDERED: BENZOCAINE/MENTHOL LOZENG 1 EACH LOZENGE MUCOUS MEM PRN (09:42)
[2023-10-11] MEDS ORDERED: NALOXONE 0.4 MG/ML 1 ML VIAL IV PRN (09:42)
[2023-10-11] MEDS ORDERED: MAG HYDROX/AL HYDROX/SIMETH 30 ML CUP PO PRN (09:42)
[2023-10-11] MEDS ORDERED: oxyCODONE-APAP 5-325MG 1 EACH TAB PO PRN (09:42)
[2023-10-11] MEDS ORDERED: MAGNESIUM HYDROXIDE 2,400 MG/30 ML CUP PO PRN (09:42)
[2023-10-11] MEDS ORDERED: ACETAMINOPHEN TAB 325 MG TAB PO PRN (09:42)
[2023-10-11] MEDS ORDERED: ONDANSETRON 4 MG/2 ML VIAL IVP PRN (09:42)
[2023-10-11] MEDS ORDERED: polyethylene glycoL 3350 17 GM POWD.PACK PO PRN (09:51)
[2023-10-11] MEDS: SODIUM CHLORIDE 0.9% 1,000 ML IV SCH ×2 (09:57→20:21)
[2023-10-11] MEDS: ASCORBIC ACID 500 MG TAB PO SCH (11:35)
--- NOTE | 2023-10-11 12:20 | P.HPIM ---
History of Present Illness H&P Date: 10/11/23 History of present illness; patient is a 73-year-old gentleman with past medical history significant for hyperlipidemia, COPD who presented to the ER for evaluation for blood in stools. Patient stated that he has been noticing he has been having blood in his stools for the last few days. Blood is bright red in color and is an excellent stools. There is no complaint of abdominal pain. No nausea, vomiting. Patient does complain of constipation and uses a lot of medications for it. Patient also been noticing that there was some blood in his urine as well. Denies any complaint of urinary retention, no complaint of increased frequency or burning micturition. Denies any chest pain or palpitation. Patient is complaining of increased fatigue. Denies any shortness of breath at rest, get short of breath on exertion. Because of the symptoms, patient came to the ER Initial lab work done in the ER showed WBC 7.3, hemoglobin 10.1, platelet count 388, sodium 38, potassium 3., BUN 19, creatinine 0.91, GFR greater than 90, glucose 91, calcium 9.3 total bilirubin 1.5, AST 45, ALT 15, UA done showed large amount of blood, nitrite negative, leukocyte esterase small amount Patient admitted to medicine service REVIEW OF SYSTEMS: CONSTITUTIONAL: No fever,. Complaining of fatigue HEENT: No recent visual problems or hearing problems. Denied any sore throat. CARDIOVASCULAR: No chest pain, orthopnea, PND, no palpitations, no syncope. PULMONARY: No cough, no hemoptysis. GASTROINTESTINAL: No diarrhea, no nausea, no vomiting, no abdominal pain. NEUROLOGICAL: No headaches, no weakness, no numbness. HEMATOLOGICAL: Denies any bleeding or petechiae. GENITOURINARY: Denies any burning micturition, frequency, or urgency. MUSCULOSKELETAL/RHEUMATOLOGICAL: Denies any joint pain, swelling, or any muscle pain. ENDOCRINE: Denies any polyuria or polydipsia. The rest of the 14-point review of systems is negative. PHYSICAL EXAMINATION: GENERAL: The patient is alert and oriented x3, not in any acute distress. Well developed, well nourished. HEENT: Pupils are round and equally reacting to light. EOMI. No scleral icterus. No conjunctival pallor. Normocephalic, atraumatic. No pharyngeal erythema. No thyromegaly. CARDIOVASCULAR: S1 and S2 present. No murmurs, rubs, or gallops. PULMONARY: Coarse breath sounds bilaterally, no wheezing or crackles. ABDOMEN: Soft, nontender, nondistended, normoactive bowel sounds. No palpable organomegaly. MUSCULOSKELETAL: No joint swelling or deformity. EXTREMITIES: No cyanosis, clubbing, or pedal edema. NEUROLOGICAL: Gross neurological examination did not reveal any focal deficits. SKIN: No rashes. Assessment and plan Blood in stools Acute blood loss anemia Hematuria Hyperlipidemia COPD Hypertension Monitor vital signs Monitor CBC Monitor CMP Continue telemetry monitoring Avoid antiplatelet agents Avoid NSAIDs Continue protonix Continue antiemetics Continue IV fluids Consult urology Consult general surgery for blood in stools. Currently there is no GI coverage in this facility. Resume home meds PT and OT consulted Labs and medication were reviewed.. Continue same treatment. Continue with symptomatic treatment. Resume home medication. Monitor labs and vitals. DVT and GI prophylaxis. Further recommendations as per clinical course of the patient Dictation was produced using [employer] dictation software. please excuse any grammatical, word or spelling errors. Past Medical History Past Medical History: Atrial Fibrillation, Coronary Artery Disease (CAD), GERD/Reflux, Hyperlipidemia, Hypertension, Renal Disease Additional Past Medical History / Comment(s): Mitral regurgitation; abdominal aortic aneurysm History of Any Multi-Drug Resistant Organisms: None Reported Past Surgical History: Coronary Bypass/CABG, Heart Catheterization, Hernia Repair Additional Past Surgical History / Comment(s): three-vessel CABG with mitral valve repair 07/27/2023 Past Anesthesia/Blood Transfusion Reactions: No Reported Reaction Type of Cardiac Device: Permanent Pacemaker Device Placement Date:: 08/03/2023 [employer] Past Psychological History: Depression Smoking Status: Current every day smoker Past Alcohol Use History: None Reported Past Drug Use History: None Reported - Past Family History Father Family Medical History: Myocardial Infarction ([place]) Additional Family Medical History / Comment(s): at age 90 from a myocardial infarction Medications and Allergies Home Medications Medication Instructions Recorded Confirmed Type Citalopram Hydrobromide [CeleXA] 20 mg PO DAILY 03/07/18 10/10/23 History Cholecalciferol [Vitamin D3 (25 50 mcg PO DAILY 12/11/21 10/10/23 History Mcg = 1000 Iu)] Acetaminophen Tab [Tylenol] 650 mg PO Q4HR PRN tab 08/08/23 10/10/23 Rx Furosemide [Lasix] 40 mg PO DAILY #30 tablet 08/12/23 10/10/23 Rx Ascorbic Acid [Vitamin C] 500 mg PO W/LUNCH 08/29/23 10/10/23 History clonazePAM [KlonoPIN] 0.5 mg PO HS 08/29/23 10/10/23 History Atorvastatin [Lipitor] 20 mg PO HS 09/14/23 10/10/23 History Fluticasone/Umeclidin/Vilanter 1 puff INHALATION RT-DAILY 09/14/23 10/10/23 History [Trelegy Ellipta 100-62.5-25] Ipratropium-Albuterol Nebulize 3 ml INHALATION RT-QID PRN 09/14/23 10/10/23 History [Duoneb 0.5 mg-3 mg/3 ml Soln] polyethylene glycoL 3350 [Miralax] 17 gm PO DAILY PRN 09/14/23 10/10/23 History Pantoprazole Sodium [Protonix] 40 mg PO DAILY #30 tab 09/19/23 10/10/23 Rx Ferrous Sulfate [Iron (65 MG 325 mg PO DAILY 10/10/23 10/10/23 History Elemental)] Metoprolol Tartrate [Lopressor] 12.5 mg PO BID 10/10/23 10/10/23 History Potassium Chloride ER [K-Dur 20] 20 meq PO DAILY 10/10/23 10/10/23 History Allergies Allergy/AdvReac Type Severity Reaction Status Date / Time No Known Allergies Allergy Verified 10/10/23 21:21 Physical Exam Vitals: Vital Signs Temp Pulse Resp BP Pulse Ox 10/11/23 09:12 97.8 F 62 19 122/58 96 10/11/23 08:03 66 20 106/68 96 10/11/23 07:21 59 L 22 117/75 96 10/11/23 06:00 66 30 H 120/65 94 L 10/11/23 04:00 61 24 115/70 95 10/11/23 00:00 60 20 127/76 98 10/10/23 19:15 63 21 105/65 98 10/10/23 18:43 68 18 105/65 89 L 10/10/23 18:05 97.7 F 82 18 112/78 99 Intake and Output 10/10/23 10/11/23 10/11/23 22:59 06:59 14:59 Other: Weight 65.771 kg Results CBC & Chem 7: 10/11/23 06:24 10/10/23 18:47 Labs: Abnormal Lab Results - Last 24 Hours (Table) 10/10/23 10/10/23 10/10/23 Range/Units 18:47 18:47 18:47 RBC 3.34 L (4.30-5.90) m/uL Hgb 10.1 L (13.0-17.5) gm/dL Hct 33.2 L (39.0-53.0) % MCV (80.0-100.0) fL MCHC 30.3 L (31.0-37.0) g/dL RDW 18.2 H (11.5-15.5) % PT 14.3 H (10.0-12.5) sec INR 1.4 H (<1.2) APTT 34.0 H (22.0-30.0) sec Total Bilirubin 1.5 H (0.2-1.3) mg/dL Alkaline Phosphatase 143 H (38-126) U/L Urine Protein (Negative) Urine Ketones (Negative) Urine Blood (Negative) Ur Leukocyte Esterase (Negative) Urine RBC (0-5) /hpf Calcium Oxalate Crystal (None) /hpf Amorphous Sediment (None) /hpf Hyaline Casts (0-2) /lpf Urine Mucus (None) /hpf 10/10/23 10/11/23 10/11/23 Range/Units 18:47 01:26 06:24 RBC 3.09 L 3.23 L (4.30-5.90) m/uL Hgb 9.4 L 9.6 L (13.0-17.5) gm/dL Hct 30.9 L 32.8 L (39.0-53.0) % MCV 101.6 H (80.0-100.0) fL MCHC 30.4 L 29.1 L (31.0-37.0) g/dL RDW 18.3 H 18.2 H (11.5-15.5) % PT (10.0-12.5) sec INR (<1.2) APTT (22.0-30.0) sec Total Bilirubin (0.2-1.3) mg/dL Alkaline Phosphatase (38-126) U/L Urine Protein Trace H (Negative) Urine Ketones Trace H (Negative) Urine Blood Large H (Negative) Ur Leukocyte Esterase Small H (Negative) Urine RBC >182 H (0-5) /hpf Calcium Oxalate Crystal Rare H (None) /hpf Amorphous Sediment Rare H (None) /hpf Hyaline Casts 38 H (0-2) /lpf Urine Mucus Few H (None) /hpf
--- NOTE | 2023-10-11 12:43 | XR ---
EXAMINATION TYPE: XR chest 2V DATE OF EXAM: 10/11/2023 12:39 PM CLINICAL INDICATION:Male, 73 years old with history of dyspnea; [facility] COMPARISON: Chest radiographs from 09/14/2023 TECHNIQUE: XR chest 2V Frontal and lateral views of the chest. FINDINGS: Lungs/Pleura: There is no evidence of pleural effusion, focal consolidation, or pneumothorax. Pulmonary vascularity: Unremarkable. Heart/mediastinum: Cardiomediastinal silhouette is enlarged and stable. Two lead cardiac conduction d evice overlying the left hemithorax with lead tips projecting over the right ventricle and right atri um. Musculoskeletal: No acute osseous pathology. Midline sternotomy wires are noted. Other findings: None Lines/Tubes: IMPRESSION: Cardiomegaly and mild pulmonary vascular congestion. Correlate with BNP for congestive heart failure.
--- NOTE | 2023-10-11 13:56 | P.GSCN ---
History of Present Illness Consult date: 10/11/23 History of present illness: CHIEF COMPLAINT: Hematuria Reason for consult GI bleed HISTORY OF PRESENT ILLNESS: This is a 73-year-old male who presented to the hospital with complaints of hematuria. He also reports having a small amount of bright red blood per rectum. Patient reports the last time he noted blood in his stools about 2-3 days ago. He denies any abdominal pain. Denies any nausea or vomiting. He does report having issues with constipation. Last EGD and colonoscopy was in 09/19/2023 and had shown gastritis, a cecal AVM, transverse colon polyp and diverticulosis. Patient denies being on any blood thinners. He is a smoker. He denies any burning with urination frequency or urgency. PAST MEDICAL HISTORY: Atrial Fibrillation, Coronary Artery Disease (CAD), GERD/Reflux, Hyperlipidemia, Hypertension, Renal Disease, abdominal aortic aneurysm PAST SURGICAL HISTORY: Coronary Bypass/CABG, Heart Catheterization, Hernia Repair, pacemaker MEDICATIONS: See below ALLERGIES: See below SOCIAL HISTORY: No illicit drug use. REVIEW OF SYSTEMS: CONSTITUTIONAL: Denies fever or chills. HEENT: Denies blurred vision, vision changes, or eye pain. Denies hemoptysis CARDIOVASCULAR: Denies chest pain or pressure. RESPIRATORY: No shortness of breath. GASTROINTESTINAL: See HPI for pertinent findings HEMATOLOGIC: Denies bleeding disorders. GENITOURINARY: Denies any blood in urine or increased urinary frequency. SKIN: Denies pruitis. Denies rash. PHYSICAL EXAM: VITAL SIGNS: Reviewed GENERAL: Well-developed in no acute distress. HEENT: No sclera icterus. Extraocular movements grossly intact. Moist buccal mucosa. Head normocephalic. No nasal drainage. ABDOMEN: Soft. Nondistended. nontender NEUROLOGIC: Alert and oriented. Cranial nerves II through XII grossly intact. LABORATORY DATA: WBC 5.7 HGB 10.1 on admit down to 9.6 Plt 297 Na 138 K 3.8 cr 0.91 total bili 1.5 AST 45 ALT 15 alk phos 153 Urinalysis large amount of blood IMAGING: Abdominal bladder ultrasound no evidence of obstructive uropathy. Cortical medullary differentiation maintained. No renal calculi. ASSESSMENT: 1. GI bleed with bright red blood per rectum 2. 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 3. 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 Signing provider agrees with the documented findings, assessment, and plan of care. Past Medical History Past Medical History: Atrial Fibrillation, Coronary Artery Disease (CAD), GERD/Reflux, Hyperlipidemia, Hypertension, Renal Disease Additional Past Medical History / Comment(s): Mitral regurgitation; abdominal aortic aneurysm History of Any Multi-Drug Resistant Organisms: None Reported Past Surgical History: Coronary Bypass/CABG, Heart Catheterization, Hernia Repair Additional Past Surgical History / Comment(s): three-vessel CABG with mitral valve repair 07/27/2023 Past Anesthesia/Blood Transfusion Reactions: No Reported Reaction Type of Cardiac Device: Permanent Pacemaker Device Placement Date:: 08/03/2023 [employer] Past Psychological History: Depression Smoking Status: Current every day smoker Past Alcohol Use History: None Reported Past Drug Use History: None Reported - Past Family History Father Family Medical History: Myocardial Infarction ([place]) Additional Family Medical History / Comment(s): at age 90 from a myocardial infarction Medications and Allergies Home Medications Medication Instructions Recorded Confirmed Type Citalopram Hydrobromide [CeleXA] 20 mg PO DAILY 03/07/18 10/10/23 History Cholecalciferol [Vitamin D3 (25 50 mcg PO DAILY 12/11/21 10/10/23 History Mcg = 1000 Iu)] Acetaminophen Tab [Tylenol] 650 mg PO Q4HR PRN tab 08/08/23 10/10/23 Rx Furosemide [Lasix] 40 mg PO DAILY #30 tablet 08/12/23 10/10/23 Rx Ascorbic Acid [Vitamin C] 500 mg PO W/LUNCH 08/29/23 10/10/23 History clonazePAM [KlonoPIN] 0.5 mg PO HS 08/29/23 10/10/23 History Atorvastatin [Lipitor] 20 mg PO HS 09/14/23 10/10/23 History Fluticasone/Umeclidin/Vilanter 1 puff INHALATION RT-DAILY 09/14/23 10/10/23 History [Trelegy Ellipta 100-62.5-25] Ipratropium-Albuterol Nebulize 3 ml INHALATION RT-QID PRN 09/14/23 10/10/23 History [Duoneb 0.5 mg-3 mg/3 ml Soln] polyethylene glycoL 3350 [Miralax] 17 gm PO DAILY PRN 09/14/23 10/10/23 History Pantoprazole Sodium [Protonix] 40 mg PO DAILY #30 tab 09/19/23 10/10/23 Rx Ferrous Sulfate [Iron (65 MG 325 mg PO DAILY 10/10/23 10/10/23 History Elemental)] Metoprolol Tartrate [Lopressor] 12.5 mg PO BID 10/10/23 10/10/23 History Potassium Chloride ER [K-Dur 20] 20 meq PO DAILY 10/10/23 10/10/23 History Allergies Allergy/AdvReac Type Severity Reaction Status Date / Time No Known Allergies Allergy Verified 10/10/23 21:21 Surgical - Exam Vital Signs Temp Pulse Resp BP Pulse Ox 97.7 F 82 18 112/78 99 10/10/23 18:05 10/10/23 18:05 10/10/23 18:05 10/10/23 18:05 10/10/23 18:05 Results - Labs 10/11/23 06:24 10/10/23 18:47 Abnormal Lab Results - Last 24 Hours (Table) 10/10/23 10/10/23 10/10/23 Range/Units 18:47 18:47 18:47 RBC 3.34 L (4.30-5.90) m/uL Hgb 10.1 L (13.0-17.5) gm/dL Hct 33.2 L (39.0-53.0) % MCV (80.0-100.0) fL MCHC 30.3 L (31.0-37.0) g/dL RDW 18.2 H (11.5-15.5) % PT 14.3 H (10.0-12.5) sec INR 1.4 H (<1.2) APTT 34.0 H (22.0-30.0) sec Total Bilirubin 1.5 H (0.2-1.3) mg/dL Alkaline Phosphatase 143 H (38-126) U/L Urine Protein (Negative) Urine Ketones (Negative) Urine Blood (Negative) Ur Leukocyte Esterase (Negative) Urine RBC (0-5) /hpf Calcium Oxalate Crystal (None) /hpf Amorphous Sediment (None) /hpf Hyaline Casts (0-2) /lpf Urine Mucus (None) /hpf 10/10/23 10/11/23 10/11/23 Range/Units 18:47 01:26 06:24 RBC 3.09 L 3.23 L (4.30-5.90) m/uL Hgb 9.4 L 9.6 L (13.0-17.5) gm/dL Hct 30.9 L 32.8 L (39.0-53.0) % MCV 101.6 H (80.0-100.0) fL MCHC 30.4 L 29.1 L (31.0-37.0) g/dL RDW 18.3 H 18.2 H (11.5-15.5) % PT (10.0-12.5) sec INR (<1.2) APTT (22.0-30.0) sec Total Bilirubin (0.2-1.3) mg/dL Alkaline Phosphatase (38-126) U/L Urine Protein Trace H (Negative) Urine Ketones Trace H (Negative) Urine Blood Large H (Negative) Ur Leukocyte Esterase Small H (Negative) Urine RBC >182 H (0-5) /hpf Calcium Oxalate Crystal Rare H (None) /hpf Amorphous Sediment Rare H (None) /hpf Hyaline Casts 38 H (0-2) /lpf Urine Mucus Few H (None) /hpf Diabetes panel 10/10/23 Range/Units 18:47 Sodium 138 (137-145) mmol/L Potassium 3.8 (3.5-5.1) mmol/L Chloride 103 (98-107) mmol/L Carbon Dioxide 27 (22-30) mmol/L BUN 19 (9-20) mg/dL Creatinine 0.91 (0.66-1.25) mg/dL Glucose 91 (74-99) mg/dL Calcium 9.3 (8.4-10.2) mg/dL AST 45 (17-59) U/L ALT 15 (4-49) U/L Alkaline Phosphatase 143 H (38-126) U/L Total Protein 7.4 (6.3-8.2) g/dL Albumin 3.5 (3.5-5.0) g/dL Calcium panel 10/10/23 Range/Units 18:47 Calcium 9.3 (8.4-10.2) mg/dL Albumin 3.5 (3.5-5.0) g/dL Pituitary panel 10/10/23 Range/Units 18:47 Sodium 138 (137-145) mmol/L Potassium 3.8 (3.5-5.1) mmol/L Chloride 103 (98-107) mmol/L Carbon Dioxide 27 (22-30) mmol/L BUN 19 (9-20) mg/dL Creatinine 0.91 (0.66-1.25) mg/dL Glucose 91 (74-99) mg/dL Calcium 9.3 (8.4-10.2) mg/dL Adrenal panel 10/10/23 Range/Units 18:47 Sodium 138 (137-145) mmol/L Potassium 3.8 (3.5-5.1) mmol/L Chloride 103 (98-107) mmol/L Carbon Dioxide 27 (22-30) mmol/L BUN 19 (9-20) mg/dL Creatinine 0.91 (0.66-1.25) mg/dL Glucose 91 (74-99) mg/dL Calcium 9.3 (8.4-10.2) mg/dL Total Bilirubin 1.5 H (0.2-1.3) mg/dL AST 45 (17-59) U/L ALT 15 (4-49) U/L Alkaline Phosphatase 143 H (38-126) U/L Total Protein 7.4 (6.3-8.2) g/dL Albumin 3.5 (3.5-5.0) g/dL
[2023-10-11] MEDS: METOPROLOL TARTRATE 12.5 MG TAB PO SCH (20:21)
[2023-10-11] MEDS: clonazePAM 0.5 MG TAB PO SCH (20:21)
[2023-10-11] MEDS: ATORVASTATIN 20 MG TAB PO SCH (20:21)
[2023-10-11] MEDS: NICOTINE 14MG/24HR PATCH TRANSDERM SCH (20:21)
[2023-10-12] MEDS: PANTOPRAZOLE 40 MG TABLET PO SCH (06:14)
[2023-10-12 07:40] LABS: Anisocytosis Slight; Basophils % (A) 1 %; Eosinophils # (A) 0.1 k/uL (0-0.7); Eosinophils % (A) 1 %; HCT 29.7 % (39.0-53.0); HGB 8.9 gm/dL (13.0-17.5); Hypochromasia Marked; Lymphocytes # (A) 1.2 k/uL (1.0-4.8); Lymphocytes % (A) 30 %; MCHC 29.8 g/dL (31.0-37.0); MCV 100.6 fL (80.0-100.0); Macrocytosis Moderate; Mean Platelet Volume 7.7; Monocytes # (A) 0.3 k/uL (0-1.0); Monocytes % (A) 8 %; Neutrophils # (A) 2.4 k/uL (1.3-7.7); Neutrophils % (A) 58 %; Platelet Count 256 k/uL (150-450); RBC 2.96 m/uL (4.30-5.90); RDW 17.6 % (11.5-15.5); WBC 4.2 k/uL (3.8-10.6)
[2023-10-12 07:47] LABS: ALT 9 U/L (4-49); AST 21 U/L (17-59); African American GFR (CKD) >90 (>60 ml/min/1.73 sqM); Albumin 2.3 g/dL (3.5-5.0); Alkaline Phosphatase 97 U/L (38-126); Anion Gap 6 mmol/L; Blood Urea Nitrogen 19 mg/dL (9-20); Calcium 8.5 mg/dL (8.4-10.2); Carbon Dioxide 25 mmol/L (22-30); Chloride 106 mmol/L (98-107); Glucose 68 mg/dL (74-99); Non-African American GFR(CKD) 89 (>60 ml/min/1.73 sqM); Potassium 3.4 mmol/L (3.5-5.1); Sodium 137 mmol/L (137-145); Total Bilirubin 0.8 mg/dL (0.2-1.3); Total Protein 5.2 g/dL (6.3-8.2)
[2023-10-12] MEDS: CHOLECALCIFEROL 25 MCG (1000 IU) TABLET PO SCH (08:49)
[2023-10-12] MEDS: CITALOPRAM HYDROBROMIDE 20 MG TAB PO SCH (08:49)
[2023-10-12] MEDS: FERROUS SULFATE 325 MG TAB PO SCH (08:49)
[2023-10-12] MEDS: NICOTINE 14MG/24HR PATCH TRANSDERM SCH (08:49)
[2023-10-12] MEDS: METOPROLOL TARTRATE 12.5 MG TAB PO SCH ×2 (08:50→20:08)
[2023-10-12] MEDS: POTASSIUM CHLORIDE ER 20 MEQ TAB.ER PO SCH (08:50)
[2023-10-12] MEDS: IPRATROPIUM 0.5 MG/2.5 ML NEBU INHALATION SCH ×4 (09:43→20:00)
[2023-10-12] MEDS: IPRATROPIUM-ALBUTEROL 3 ML NEB INHALATION PRN ×3 (09:43→16:39)
[2023-10-12] MEDS: SYMBICORT 80-4.5 MCG INHALER INHALATION SCH ×2 (09:43→20:00)
[2023-10-12] MEDS: IOPAMIDOL CONTRAST (ORAL USE) VIAL PO PRN ×2 (10:38→11:46)
[2023-10-12] MEDS: ASCORBIC ACID 500 MG TAB PO SCH (11:50)
--- NOTE | 2023-10-12 12:06 | P.PN ---
Subjective Progress Note Date: 10/12/23 CHIEF COMPLAINT: Hematuria HISTORY OF PRESENT ILLNESS: Surgical service following in regards to rectal bl eeding. Patient has had no further rectal bleeding for 3 days. The hematuria has resolved. Denies any abdominal pain. Denies any nausea or vomiting. Afebrile. Hemoglobin did decrease from 9.6-8.9 platelets 256. Potassium is 3.4 PHYSICAL EXAM: VITAL SIGNS: Reviewed. GENERAL: Well-developed in no acute distress. ABDOMEN: Soft. Nondistended. Nontender. NEUROLOGIC: Alert and oriented. Cranial nerves II through XII grossly intact. ASSESSMENT: 1. GI bleed with bright red blood per rectum resolved 2. 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 3. Hematuria PLAN: -Recommend outpatient colonoscopy -Urology workup in progress -Continue to monitor hemoglobin -Continue to monitor for any signs or symptoms of bleeding -Patient receiving potassium supplement -Continue regular diet Physician Manager Gallery note has been reviewed by physician. Signing provider agrees with the documented findings, assessment, and plan of care. Objective - Vital Signs Vital signs: Vital Signs Temp 97.8 F 10/12/23 08:48 Pulse 60 10/12/23 10:01 Resp 16 10/12/23 08:48 BP 120/57 10/12/23 08:48 Pulse Ox 97 10/12/23 09:49 FiO2 Intake & Output 10/11/23 10/12/23 10/12/23 18:59 06:59 18:59 Intake Total 240 250 Balance 240 250 Intake: IV 10 Invasive Line 1 10 Oral 240 240 Other: Voiding Method Toilet Toilet Toilet # Voids 1 - Labs CBC & Chem 7: 10/12/23 06:58 10/12/23 06:58 Labs: Abnormal Lab Results - Last 24 Hours (Table) 10/12/23 10/12/23 Range/Units 06:58 06:58 RBC 2.96 L (4.30-5.90) m/uL Hgb 8.9 L (13.0-17.5) gm/dL Hct 29.7 L (39.0-53.0) % MCV 100.6 H (80.0-100.0) fL MCHC 29.8 L (31.0-37.0) g/dL RDW 17.6 H (11.5-15.5) % Potassium 3.4 L (3.5-5.1) mmol/L Glucose 68 L (74-99) mg/dL Total Protein 5.2 L (6.3-8.2) g/dL Albumin 2.3 L (3.5-5.0) g/dL
--- NOTE | 2023-10-12 12:47 | P.GSCN ---
History of Present Illness Consult date: 10/12/23 Reason for Consult: Hematuria Requesting physician: Juan Dyer History of present illness: The patient is a 73-year-old white male who presents with bright red blood per rectum as well as gross hematuria. He has a vague historian but it appears that the hematuria began 1-2 weeks ago. He denies dysuria, but does report increased urinary frequency, urinary urgency with occasional urge incontinence, and urinary incontinence without awareness. He denies any prior history of UTIs or urolithiasis. Review of Systems - Constitutional Denies chills, Denies fever - Cardiovascular Denies chest pain - Respiratory Denies dyspnea - Gastrointestinal Reports hematochezia - Genitourinary Reports as per HPI Past Medical History Past Medical History: Atrial Fibrillation, Coronary Artery Disease (CAD), GERD/Reflux, Hyperlipidemia, Hypertension, Renal Disease Additional Past Medical History / Comment(s): Mitral regurgitation; abdominal aortic aneurysm History of Any Multi-Drug Resistant Organisms: None Reported Past Surgical History: Coronary Bypass/CABG, Heart Catheterization, Hernia Repair Additional Past Surgical History / Comment(s): three-vessel CABG with mitral valve repair 07/27/2023 Past Anesthesia/Blood Transfusion Reactions: No Reported Reaction Type of Cardiac Device: Permanent Pacemaker Device Placement Date:: 08/03/2023 [employer] Past Psychological History: Depression Smoking Status: Current every day smoker Past Alcohol Use History: None Reported Past Drug Use History: None Reported - Past Family History Father Family Medical History: Myocardial Infarction (MD) Additional Family Medical History / Comment(s): at age 90 from a myocardial infarction Medications and Allergies Home Medications Medication Instructions Recorded Confirmed Type Citalopram Hydrobromide [CeleXA] 20 mg PO DAILY 03/07/18 10/10/23 History Cholecalciferol [Vitamin D3 (25 50 mcg PO DAILY 12/11/21 10/10/23 History Mcg = 1000 Iu)] Acetaminophen Tab [Tylenol] 650 mg PO Q4HR PRN tab 08/08/23 10/10/23 Rx Furosemide [Lasix] 40 mg PO DAILY #30 tablet 08/12/23 10/10/23 Rx Ascorbic Acid [Vitamin C] 500 mg PO W/LUNCH 08/29/23 10/10/23 History clonazePAM [KlonoPIN] 0.5 mg PO HS 08/29/23 10/10/23 History Atorvastatin [Lipitor] 20 mg PO HS 09/14/23 10/10/23 History Fluticasone/Umeclidin/Vilanter 1 puff INHALATION RT-DAILY 09/14/23 10/10/23 History [Trelepetra Ellipta 100-62.5-25] Ipratropium-Albuterol Nebulize 3 ml INHALATION RT-QID PRN 09/14/23 10/10/23 History [Duoneb 0.5 mg-3 mg/3 ml Soln] polyethylene glycoL 3350 [Miralax] 17 gm PO DAILY PRN 09/14/23 10/10/23 History Pantoprazole Sodium [Protonix] 40 mg PO DAILY #30 tab 09/19/23 10/10/23 Rx Ferrous Sulfate [Iron (65 MG 325 mg PO DAILY 10/10/23 10/10/23 History Elemental)] Metoprolol Tartrate [Lopressor] 12.5 mg PO BID 10/10/23 10/10/23 History Potassium Chloride ER [K-Dur 20] 20 meq PO DAILY 10/10/23 10/10/23 History Allergies Allergy/AdvReac Type Severity Reaction Status Date / Time No Known Allergies Allergy Verified 10/10/23 21:21 Surgical - Exam Vital Signs Temp Pulse Resp BP Pulse Ox 97.7 F 82 18 112/78 99 10/10/23 18:05 10/10/23 18:05 10/10/23 18:05 10/10/23 18:05 10/10/23 18:05 - General well developed, well nourished, no distress - Respiratory normal respiratory effort - Abdomen Abdomen: soft, non tender, no guarding, no rigid, no rebound - Genitourinary normal penis with no external lesions, testicles non-tender - Rectum Rectum: normal sphincter tone, no masses, other (Prostate mildly enlarged but smooth) - Psychiatric oriented to time, oriented to person, oriented to place, speech is normal, memory intact Results - Labs 10/12/23 06:58 10/12/23 06:58 Abnormal Lab Results - Last 24 Hours (Table) 10/12/23 10/12/23 Range/Units 06:58 06:58 RBC 2.96 L (4.30-5.90) m/uL Hgb 8.9 L (13.0-17.5) gm/dL Hct 29.7 L (39.0-53.0) % MCV 100.6 H (80.0-100.0) fL MCHC 29.8 L (31.0-37.0) g/dL RDW 17.6 H (11.5-15.5) % Potassium 3.4 L (3.5-5.1) mmol/L Glucose 68 L (74-99) mg/dL Total Protein 5.2 L (6.3-8.2) g/dL Albumin 2.3 L (3.5-5.0) g/dL Diabetes panel 10/12/23 Range/Units 06:58 Sodium 137 (137-145) mmol/L Potassium 3.4 L (3.5-5.1) mmol/L Chloride 106 (98-107) mmol/L Carbon Dioxide 25 (22-30) mmol/L BUN 19 (9-20) mg/dL Creatinine 0.78 (0.66-1.25) mg/dL Glucose 68 L (74-99) mg/dL Calcium 8.5 (8.4-10.2) mg/dL AST 21 (17-59) U/L ALT 9 (4-49) U/L Alkaline Phosphatase 97 (38-126) U/L Total Protein 5.2 L (6.3-8.2) g/dL Albumin 2.3 L (3.5-5.0) g/dL Calcium panel 10/12/23 Range/Units 06:58 Calcium 8.5 (8.4-10.2) mg/dL Albumin 2.3 L (3.5-5.0) g/dL Pituitary panel 10/12/23 Range/Units 06:58 Sodium 137 (137-145) mmol/L Potassium 3.4 L (3.5-5.1) mmol/L Chloride 106 (98-107) mmol/L Carbon Dioxide 25 (22-30) mmol/L BUN 19 (9-20) mg/dL Creatinine 0.78 (0.66-1.25) mg/dL Glucose 68 L (74-99) mg/dL Calcium 8.5 (8.4-10.2) mg/dL Adrenal panel 10/12/23 Range/Units 06:58 Sodium 137 (137-145) mmol/L Potassium 3.4 L (3.5-5.1) mmol/L Chloride 106 (98-107) mmol/L Carbon Dioxide 25 (22-30) mmol/L BUN 19 (9-20) mg/dL Creatinine 0.78 (0.66-1.25) mg/dL Glucose 68 L (74-99) mg/dL Calcium 8.5 (8.4-10.2) mg/dL Total Bilirubin 0.8 (0.2-1.3) mg/dL AST 21 (17-59) U/L ALT 9 (4-49) U/L Alkaline Phosphatase 97 (38-126) U/L Total Protein 5.2 L (6.3-8.2) g/dL Albumin 2.3 L (3.5-5.0) g/dL - Imaging US - abdomen: report reviewed Assessment and Plan (1) Gross hematuria Current Visit: Yes Status: Acute Code(s): R31.0 - GROSS HEMATURIA SNOMED Code(s): 773962031 Plan: Renal ultrasound shows bilateral renal cysts. The fact that the patient has experienced urinary frequency and urgency in addition to the hematuria suggests a lower urinary tract source of the bleeding. Nonetheless, I have ordered a CT scan of the abdomen and pelvis without and with contrast to more optimally evaluate the kidneys. He will require cystoscopy to complete the hematuria evaluation (this will likely be performed as an outpatient). Time with Patient: Greater than 30
--- NOTE | 2023-10-12 13:40 | P.PN ---
Subjective Progress Note Date: 10/12/23 patient is a 73-year-old gentleman with past medical history significant for hyperlipidemia, COPD who presented to the ER for evaluation for blood in stools. Patient stated that he has been noticing he has been having blood in his stools for the last few days. Blood is bright red in color and is an excellent stools. There is no complaint of abdominal pain. No nausea, vomiting. Patient does complain of constipation and uses a lot of medications for it. Patient also been noticing that there was some blood in his urine as well. Denies any complaint of urinary retention, no complaint of increased frequency or burning micturition. Denies any chest pain or palpitation. Patient is complaining of increased fatigue. Denies any shortness of breath at rest, get short of breath on exertion. Because of the symptoms, patient came to the ER Initial lab work done in the ER showed WBC 7.3, hemoglobin 10.1, platelet count 388, sodium 38, potassium 3., BUN 19, creatinine 0.91, GFR greater than 90, glucose 91, calcium 9.3 total bilirubin 1.5, AST 45, ALT 15, UA done showed large amount of blood, nitrite negative, leukocyte esterase small amount Patient admitted to medicine service 10/12. Patient seen and examined. No further episodes of blood in the stools. No complaint of hematuria. Vital signs stable REVIEW OF SYSTEMS: CONSTITUTIONAL: No fever, no malaise,. CARDIOVASCULAR: No chest pain, no palpitations, no syncope. PULMONARY: No shortness of breath, no cough, GASTROINTESTINAL: No diarrhea, no nausea, no vomiting, no abdominal pain. NEUROLOGICAL: No headaches, no weakness, PHYSICAL EXAMINATION: GENERAL: The patient is alert and oriented x3, not in any acute distress. Well developed, well nourished. HEENT: Pupils are round and equally reacting to light. EOMI. No scleral icterus. No conjunctival pallor. Normocephalic, atraumatic. No pharyngeal erythema. No thyromegaly. CARDIOVASCULAR: S1 and S2 present. No murmurs, rubs, or gallops. PULMONARY: Chest is clear to auscultation, no wheezing or crackles. ABDOMEN: Soft, nontender, nondistended, normoactive bowel sounds. No palpable organomegaly. MUSCULOSKELETAL: No joint swelling or deformity. EXTREMITIES: No cyanosis, clubbing, or pedal edema. NEUROLOGICAL: Gross neurological examination did not reveal any focal deficits. SKIN: No rashes. Assessment and plan Blood in stools Acute blood loss anemia Hematuria Hyperlipidemia COPD Hypertension Monitor vital signs Monitor CBC Monitor CMP Continue telemetry monitoring Encourage use of incentive spirometer DC fluids. Resume Lasix Gen. surgery evaluated the patient, hemoglobin stable, recommend outpatient endoscopy. Urology consulted, order CT abdominal pelvis without contrast Regards to hyperlipidemia continue Lipitor In regards to acute anemia,continue to monitor H&H transfuse for hemodynamic in stability or hemoglobin less than 7 PT and OT consulted Labs and medication were reviewed.. Continue same treatment. Continue with symptomatic treatment. Resume home medication. Monitor labs and vitals. DVT and GI prophylaxis. Further recommendations as per clinical course of the patient Dictation was produced using [employer] dictation software. please excuse any grammatical, word or spelling errors. Objective - Vital Signs Vital signs: Vital Signs Temp 97.8 F 10/12/23 08:48 Pulse 63 10/12/23 08:48 Resp 16 10/12/23 08:48 BP 120/57 10/12/23 08:48 Pulse Ox 91 L 10/12/23 08:48 FiO2 Intake & Output 10/11/23 10/12/23 10/12/23 18:59 06:59 18:59 Intake Total 240 240 Balance 240 240 Intake: Oral 240 240 Other: Voiding Method Toilet Toilet # Voids 1 - Labs CBC & Chem 7: 10/12/23 06:58 10/12/23 06:58 Labs: Abnormal Lab Results - Last 24 Hours (Table) 10/12/23 10/12/23 Range/Units 06:58 06:58 RBC 2.96 L (4.30-5.90) m/uL Hgb 8.9 L (13.0-17.5) gm/dL Hct 29.7 L (39.0-53.0) % MCV 100.6 H (80.0-100.0) fL MCHC 29.8 L (31.0-37.0) g/dL RDW 17.6 H (11.5-15.5) % Potassium 3.4 L (3.5-5.1) mmol/L Glucose 68 L (74-99) mg/dL Total Protein 5.2 L (6.3-8.2) g/dL Albumin 2.3 L (3.5-5.0) g/dL
--- NOTE | 2023-10-12 13:43 | CT ---
EXAMINATION TYPE: CT abdomen pelvis wo/w con CT DLP: 1232.7 mGycm, Automated exposure control for dose reduction was used. DATE OF EXAM: 10/12/2023 12:33 PM COMPARISON: None CLINICAL INDICATION:Male, 73 years old with history of Gross hematuria; Gross hematuria TECHNIQUE: Axial CT of the ;CT abdomen pelvis wo/w con;Sagittal and coronal reformats were created o n a separate workstation. Contrast used:100 mL of Isovue 300 without and with IV Contrast, (none if empty) Oral contrast used: with Oral Contrast (none if empty) FINDINGS: LOWER CHEST: Small bilateral pleural effusions. The heart is enlarged for size. There is mild pulmona ry vascular congestion. ABDOMEN LIVER: Heterogenous enhancement pattern. GALLBLADDER AND BILE DUCTS: Unremarkable. PANCREAS: Unremarkable. SPLEEN: Unremarkable. ADRENAL GLANDS: Unremarkable. KIDNEYS AND URETERS: There is an exophytic mass off the left kidney measuring up to 2.8 x 2.8 cm whic h is predominantly exophytic off the medial aspect of the lower pole anteriorly.. No right renal mass es. PELVIS BLADDER: Unremarkable REPRODUCTIVE: Coarse calcifications of the prostate gland are identified. ABDOMEN & PELVIS STOMACH AND BOWEL: No evidence of bowel obstruction. PERITONEUM/RETROPERITONEUM: No evidence of pneumoperitoneum or free fluid. VASCULATURE: Mild atherosclerotic calcifications are present throughout the abdominal aorta and its b ranches. Infrarenal abdominal aortic aneurysm up to 3.1 cm x 2.9 cm. MUSCULOSKELETAL: No acute osseous abnormalities. Moderate disc degeneration changes are present throu ghout the thoracolumbar spine. LYMPH NODES: No gross evidence for lymphadenopathy. SOFT TISSUE/ABDOMINAL WALL: Unremarkable IMPRESSION: 1. Left renal mass concerning for renal cell carcinoma. Urology consultation recommended.. 2. Cardiomegaly with pulmonary vascular congestion and Small bilateral pleural effusions. Cholecyste ctomy for congestive heart failure. 3. Heterogenous appearance of the liver parenchyma enhancement correlate for congestive heart failur e congestive hepatopathy. 4. Infrarenal fusiform abdominal aortic aneurysm measuring up to 3.1 cm.
[2023-10-12] MEDS ORDERED: IPRATROPIUM-ALBUTEROL 3 ML NEB INHALATION STA (14:55)
[2023-10-12] MEDS ORDERED: FUROSEMIDE 10 MG/ML 4 ML VIAL IV STA (14:56)
[2023-10-12] MEDS: clonazePAM 0.5 MG TAB PO SCH (20:08)
[2023-10-12] MEDS: ATORVASTATIN 20 MG TAB PO SCH (20:08)
[2023-10-13] MEDS: PANTOPRAZOLE 40 MG TABLET PO SCH (06:11)
[2023-10-13] MEDS: POTASSIUM CHLORIDE ER 20 MEQ TAB.ER PO SCH (07:44)
[2023-10-13] MEDS: FERROUS SULFATE 325 MG TAB PO SCH (07:44)
[2023-10-13] MEDS: CHOLECALCIFEROL 25 MCG (1000 IU) TABLET PO SCH (07:44)
[2023-10-13] MEDS: METOPROLOL TARTRATE 12.5 MG TAB PO SCH ×2 (07:45→19:31)
[2023-10-13] MEDS: FUROSEMIDE 10 MG/ML 4 ML VIAL IV SCH (07:45)
[2023-10-13] MEDS: CITALOPRAM HYDROBROMIDE 20 MG TAB PO SCH (07:45)
[2023-10-13] MEDS: NICOTINE 14MG/24HR PATCH TRANSDERM SCH (07:45)
[2023-10-13] MEDS: IPRATROPIUM-ALBUTEROL 3 ML NEB INHALATION PRN ×4 (08:48→21:02)
[2023-10-13] MEDS: SYMBICORT 80-4.5 MCG INHALER INHALATION SCH ×2 (08:48→21:02)
[2023-10-13] MEDS: IPRATROPIUM 0.5 MG/2.5 ML NEBU INHALATION SCH ×4 (08:48→21:02)
[2023-10-13 09:41] LABS: Anisocytosis Slight; Basophils % (A) 1 %; Eosinophils # (A) 0.1 k/uL (0-0.7); Eosinophils % (A) 1 %; HCT 32.1 % (39.0-53.0); HGB 9.4 gm/dL (13.0-17.5); Hypochromasia Marked; Lymphocytes # (A) 1.2 k/uL (1.0-4.8); Lymphocytes % (A) 19 %; MCH 29.7 pg (25.0-35.0); MCHC 29.4 g/dL (31.0-37.0); MCV 101.2 fL (80.0-100.0); Macrocytosis Moderate; Mean Platelet Volume 8.1; Monocytes # (A) 0.4 k/uL (0-1.0); Monocytes % (A) 7 %; Neutrophils # (A) 4.6 k/uL (1.3-7.7); Neutrophils % (A) 71 %; Platelet Count 249 k/uL (150-450); RBC 3.17 m/uL (4.30-5.90); RDW 17.5 % (11.5-15.5); WBC 6.5 k/uL (3.8-10.6)
[2023-10-13 09:51] LABS: ALT 11 U/L (4-49); AST 21 U/L (17-59); African American GFR (CKD) >90 (>60 ml/min/1.73 sqM); Albumin 2.8 g/dL (3.5-5.0); Alkaline Phosphatase 109 U/L (38-126); Anion Gap 6 mmol/L; Blood Urea Nitrogen 14 mg/dL (9-20); Calcium 8.8 mg/dL (8.4-10.2); Carbon Dioxide 30 mmol/L (22-30); Chloride 103 mmol/L (98-107); Glucose 95 mg/dL (74-99); Non-African American GFR(CKD) 85 (>60 ml/min/1.73 sqM); Potassium 3.8 mmol/L (3.5-5.1); Sodium 139 mmol/L (137-145); Total Bilirubin 0.6 mg/dL (0.2-1.3); Total Protein 5.9 g/dL (6.3-8.2)
--- NOTE | 2023-10-13 09:52 | P.PN ---
Progress Note - Text Progress Note Date: 10/13/23 Patient [place] stable. His hemoglobin has increased to 9.4. As no sign of GI bleed. On exam vital signs appear stable. Abdomen soft. Patient was scheduled for outpatient colonoscopy.
[2023-10-13] MEDS: ASCORBIC ACID 500 MG TAB PO SCH (11:32)
--- NOTE | 2023-10-13 12:43 | P.PN ---
Subjective Progress Note Date: 10/13/23 Principal diagnosis: Hematuria The patient is a 73-year-old white male admitted with rectal bleeding. He also reported gross painless hematuria, which has resolved. A CT scan shows a 2.8 cm left renal mass, suspicious for renal cell carcinoma. Objective - Vital Signs Vital signs: Vital Signs Temp 98 F 10/13/23 03:34 Pulse 60 10/13/23 09:02 Resp 18 10/13/23 03:34 BP 100/50 10/13/23 03:34 Pulse Ox 97 10/13/23 03:34 FiO2 Intake & Output 10/12/23 10/13/23 10/13/23 18:59 06:59 18:59 Intake Total 746 160 118 Output Total 300 200 Balance 446 -40 118 Intake: IV 30 40 Invasive Line 1 20 20 Invasive Line 2 10 20 Oral 716 120 118 Output: Urine 300 200 Other: Voiding Method Toilet Toilet - Constitutional General appearance: Present: average body habitus, no acute distress - Psychiatric Psychiatric: Present: A&O x's 3 - Labs CBC & Chem 7: 10/13/23 09:20 10/13/23 09:20 Labs: Abnormal Lab Results - Last 24 Hours (Table) 10/13/23 Range/Units 09:20 RBC 3.17 L (4.30-5.90) m/uL Hgb 9.4 L (13.0-17.5) gm/dL Hct 32.1 L (39.0-53.0) % MCV 101.2 H (80.0-100.0) fL MCHC 29.4 L (31.0-37.0) g/dL RDW 17.5 H (11.5-15.5) % Assessment and Plan (1) Gross hematuria Current Visit: Yes Status: Acute Code(s): R31.0 - GROSS HEMATURIA SNOMED Code(s): 097082029 (2) Neoplasm of uncertain behavior of left kidney Current Visit: Yes Status: Acute Code(s): D41.02 - NEOPLASM OF UNCERTAIN BEHAVIOR OF LEFT KIDNEY SNOMED Code(s): 331670776855348 Plan: Renal ultrasound shows bilateral renal cysts. The fact that the patient has experienced urinary frequency and urgency in addition to the hematuria suggests a lower urinary tract source of the bleeding. The CT scan of the abdomen and pelvis shows a 2.8 cm left renal mass, suspicious for renal cell carcinoma. I discussed this with Mr. Lucio, and explained to him that options will include active surveillance, percutaneous ablation, and surgery. He is urologically stable for discharge. Arrangements will be made for him to undergo office cystoscopy to complete the hematuria evaluation.
--- NOTE | 2023-10-13 14:08 | P.PN ---
Subjective Progress Note Date: 10/13/23 patient is a 73-year-old gentleman with past medical history significant for hyperlipidemia, COPD who presented to the ER for evaluation for blood in stools. Patient stated that he has been noticing he has been having blood in his stools for the last few days. Blood is bright red in color and is an excellent stools. There is no complaint of abdominal pain. No nausea, vomiting. Patient does complain of constipation and uses a lot of medications for it. Patient also been noticing that there was some blood in his urine as well. Denies any complaint of urinary retention, no complaint of increased frequency or burning micturition. Denies any chest pain or palpitation. Patient is complaining of increased fatigue. Denies any shortness of breath at rest, get short of breath on exertion. Because of the symptoms, patient came to the ER Initial lab work done in the ER showed WBC 7.3, hemoglobin 10.1, platelet count 388, sodium 38, potassium 3., BUN 19, creatinine 0.91, GFR greater than 90, glucose 91, calcium 9.3 total bilirubin 1.5, AST 45, ALT 15, UA done showed large amount of blood, nitrite negative, leukocyte esterase small amount Patient admitted to medicine service 10/12. Patient seen and examined. No further episodes of blood in the stools. No complaint of hematuria. Vital signs stable 10/13. Patient seen and examined. CT abdominal pelvis done on 10/12 showed left renal mass concerning for renal cell carcinoma. No further episodes of hematuria or blood in stools. REVIEW OF SYSTEMS: CONSTITUTIONAL: No fever, no malaise,. CARDIOVASCULAR: No chest pain, no palpitations, no syncope. PULMONARY: No shortness of breath, no cough, GASTROINTESTINAL: No diarrhea, no nausea, no vomiting, no abdominal pain. NEUROLOGICAL: No headaches, no weakness, PHYSICAL EXAMINATION: GENERAL: The patient is alert and oriented x3, not in any acute distress. Well developed, well nourished. HEENT: Pupils are round and equally reacting to light. EOMI. No scleral icterus. No conjunctival pallor. Normocephalic, atraumatic. No pharyngeal erythema. No thyromegaly. CARDIOVASCULAR: S1 and S2 present. No murmurs, rubs, or gallops. PULMONARY: Chest is clear to auscultation, no wheezing or crackles. ABDOMEN: Soft, nontender, nondistended, normoactive bowel sounds. No palpable organomegaly. MUSCULOSKELETAL: No joint swelling or deformity. EXTREMITIES: No cyanosis, clubbing, or pedal edema. NEUROLOGICAL: Gross neurological examination did not reveal any focal deficits. SKIN: No rashes. Assessment and plan Left renal mass concerning for renal cell carcinoma Blood in stools Acute blood loss anemia Hematuria Hyperlipidemia COPD Hypertension Monitor vital signs Monitor CBC Monitor CMP Continue telemetry monitoring Encourage use of incentive spirometer Continue Lasix Gen. surgery evaluated the patient, hemoglobin stable, recommend outpatient endoscopy. Urology consulted, CT abdominal pelvis without contrast done showed left renal mass, urology recommended active surveillance, percutaneous ablation, and surgery in outpatient settings Regards to hyperlipidemia continue Lipitor In regards to acute anemia,continue to monitor H&H transfuse for hemodynamic instability or hemoglobin less than 7 PT and OT consulted Labs and medication were reviewed.. Continue same treatment. Continue with symptomatic treatment. Resume home medication. Monitor labs and vitals. DVT and GI prophylaxis. Further recommendations as per clinical course of the patient Dictation was produced using [employer] dictation software. please excuse any grammatical, word or spelling errors. Objective - Vital Signs Vital signs: Vital Signs Temp 98 F 10/13/23 03:34 Pulse 60 10/13/23 09:02 Resp 18 10/13/23 03:34 BP 100/50 10/13/23 03:34 Pulse Ox 97 10/13/23 03:34 FiO2 Intake & Output 10/12/23 10/13/23 10/13/23 18:59 06:59 18:59 Intake Total 746 160 118 Output Total 300 200 Balance 446 -40 118 Intake: IV 30 40 Invasive Line 1 20 20 Invasive Line 2 10 20 Oral 716 120 118 Output: Urine 300 200 Other: Voiding Method Toilet Toilet - Labs CBC & Chem 7: 10/13/23 09:20 10/13/23 09:20
[2023-10-13] MEDS: BENZONATATE 100 MG CAP PO SCH ×2 (15:21→19:31)
[2023-10-13] MEDS: ATORVASTATIN 20 MG TAB PO SCH (19:31)
[2023-10-13] MEDS: guaiFENesin 600 MG TABLET.ER PO SCH (19:31)
[2023-10-13] MEDS: clonazePAM 0.5 MG TAB PO SCH (19:31)
[2023-10-14] MEDS: PANTOPRAZOLE 40 MG TABLET PO SCH (06:04)
[2023-10-14] MEDS: IPRATROPIUM-ALBUTEROL 3 ML NEB INHALATION PRN ×3 (08:05→16:14)
[2023-10-14] MEDS: SYMBICORT 80-4.5 MCG INHALER INHALATION SCH ×2 (08:06→20:26)
[2023-10-14] MEDS: IPRATROPIUM 0.5 MG/2.5 ML NEBU INHALATION SCH ×4 (08:06→20:26)
--- NOTE | 2023-10-14 09:46 | P.PN ---
Progress Note - Text Progress Note Date: 10/14/23 Patient still. He shows no signs of GI bleed. His hemoglobin 9.4. On exam vital signs are stable. Abdomen soft. Patient will undergo colonoscopy as outpatient.
[2023-10-14] MEDS: FERROUS SULFATE 325 MG TAB PO SCH (10:11)
[2023-10-14] MEDS: NICOTINE 14MG/24HR PATCH TRANSDERM SCH (10:11)
[2023-10-14] MEDS: CITALOPRAM HYDROBROMIDE 20 MG TAB PO SCH (10:11)
[2023-10-14] MEDS: METOPROLOL TARTRATE 12.5 MG TAB PO SCH ×2 (10:11→21:08)
[2023-10-14] MEDS: guaiFENesin 600 MG TABLET.ER PO SCH ×2 (10:12→21:08)
[2023-10-14] MEDS: CHOLECALCIFEROL 25 MCG (1000 IU) TABLET PO SCH (10:12)
[2023-10-14] MEDS: FUROSEMIDE 10 MG/ML 4 ML VIAL IV SCH (10:12)
[2023-10-14] MEDS: BENZONATATE 100 MG CAP PO SCH ×3 (10:12→21:09)
[2023-10-14] MEDS: POTASSIUM CHLORIDE ER 20 MEQ TAB.ER PO SCH (10:12)
--- NOTE | 2023-10-14 12:09 | XR ---
EXAMINATION TYPE: XR chest 2V DATE OF EXAM: 10/14/2023 COMPARISON: 10/11/2023 HISTORY: Shortness of breath TECHNIQUE: Frontal and lateral views of the chest are obtained. FINDINGS: Scattered senescent parenchymal changes noted. Hyperinflation compatible with COPD. Improving features of congestive failure with the small pleural effusions. Mediastinal structures are stable and grossly unremarkable. No evidence for hilar prominence. Degenerative changes dorsal spine. IMPRESSION: 1. Improving features of congestive failure with the small pleural effusions.
[2023-10-14] MEDS: ASCORBIC ACID 500 MG TAB PO SCH (12:39)
--- NOTE | 2023-10-14 14:22 | P.PN ---
Subjective Progress Note Date: 10/14/23 patient is a 73-year-old gentleman with past medical history significant for hyperlipidemia, COPD who presented to the ER for evaluation for blood in stools. Patient stated that he has been noticing he has been having blood in his stools for the last few days. Blood is bright red in color and is an excellent stools. There is no complaint of abdominal pain. No nausea, vomiting. Patient does complain of constipation and uses a lot of medications for it. Patient also been noticing that there was some blood in his urine as well. Denies any complaint of urinary retention, no complaint of increased frequency or burning micturition. Denies any chest pain or palpitation. Patient is complaining of increased fatigue. Denies any shortness of breath at rest, get short of breath on exertion. Because of the symptoms, patient came to the ER Initial lab work done in the ER showed WBC 7.3, hemoglobin 10.1, platelet count 388, sodium 38, potassium 3., BUN 19, creatinine 0.91, GFR greater than 90, glucose 91, calcium 9.3 total bilirubin 1.5, AST 45, ALT 15, UA done showed large amount of blood, nitrite negative, leukocyte esterase small amount Patient admitted to medicine service 10/12. Patient seen and examined. No further episodes of blood in the stools. No complaint of hematuria. Vital signs stable 10/13. Patient seen and examined. CT abdominal pelvis done on 10/12 showed left renal mass concerning for renal cell carcinoma. No further episodes of hematuria or blood in stools. 10/14. Patient seen and examined. Complaining of shortness of breath on exertion. Denies cough REVIEW OF SYSTEMS: CONSTITUTIONAL: No fever, no malaise,. CARDIOVASCULAR: No chest pain, no palpitations, no syncope. PULMONARY: As mentioned above GASTROINTESTINAL: No diarrhea, no nausea, no vomiting, no abdominal pain. NEUROLOGICAL: No headaches, no weakness, PHYSICAL EXAMINATION: GENERAL: The patient is alert and oriented x3, not in any acute distress. Well developed, well nourished. HEENT: Pupils are round and equally reacting to light. EOMI. No scleral icterus. No conjunctival pallor. Normocephalic, atraumatic. No pharyngeal erythema. No thyromegaly. CARDIOVASCULAR: S1 and S2 present. No murmurs, rubs, or gallops. PULMONARY: Diminished breath sounds at bases bilaterally, no wheezing or crackles. ABDOMEN: Soft, nontender, nondistended, normoactive bowel sounds. No palpable organomegaly. MUSCULOSKELETAL: No joint swelling or deformity. EXTREMITIES: No cyanosis, clubbing, or pedal edema. NEUROLOGICAL: Gross neurological examination did not reveal any focal deficits. SKIN: No rashes. Assessment and plan Left renal mass concerning for renal cell carcinoma Blood in stools Acute blood loss anemia Hematuria Hyperlipidemia COPD Hypertension Monitor vital signs Monitor CBC Monitor CMP Continue telemetry monitoring Encourage use of incentive spirometer Continue Lasix IV 40 mg daily Repeat chest x-ray ordered Gen. surgery evaluated the patient, hemoglobin stable, recommend outpatient endoscopy. Urology consulted, CT abdominal pelvis without contrast done showed left renal mass, urology recommended active surveillance, percutaneous ablation, and surgery in outpatient settings Regards to hyperlipidemia continue Lipitor In regards to acute anemia,continue to monitor H&H transfuse for hemodynamic instability or hemoglobin less than 7 PT and OT recommended home care Labs and medication were reviewed.. Continue same treatment. Continue with symptomatic treatment. Resume home medication. Monitor labs and vitals. DVT and GI prophylaxis. Further recommendations as per clinical course of the patient Dictation was produced using [employer] dictation software. please excuse any grammatical, word or spelling errors. Objective - Vital Signs Vital signs: Vital Signs Temp 97.5 F L 10/14/23 11:43 Pulse 64 10/14/23 12:20 Resp 19 10/14/23 11:43 BP 126/69 10/14/23 11:43 Pulse Ox 88 L 10/14/23 11:43 FiO2 Intake & Output 10/13/23 10/14/23 10/14/23 18:59 06:59 18:59 Intake Total 806 240 480 Output Total 1075 300 Balance -269 -60 480 Intake: Oral 806 240 480 Output: Urine 1075 300 Other: Voiding Method Urinal Urinal Toilet - Labs CBC & Chem 7: 10/13/23 09:20 10/13/23 09:20
[2023-10-14 15:21] LABS: Anisocytosis Slight; Basophils % (A) 1 %; Eosinophils # (A) 0.1 k/uL (0-0.7); Eosinophils % (A) 1 %; HCT 31.8 % (39.0-53.0); HGB 9.3 gm/dL (13.0-17.5); Hypochromasia Marked; Lymphocytes # (A) 1.4 k/uL (1.0-4.8); Lymphocytes % (A) 28 %; MCH 29.4 pg (25.0-35.0); MCHC 29.2 g/dL (31.0-37.0); MCV 100.9 fL (80.0-100.0); Macrocytosis Moderate; Mean Platelet Volume 7.9; Monocytes # (A) 0.3 k/uL (0-1.0); Monocytes % (A) 5 %; Neutrophils # (A) 3.1 k/uL (1.3-7.7); Neutrophils % (A) 64 %; Platelet Count 213 k/uL (150-450); RBC 3.15 m/uL (4.30-5.90); RDW 17.2 % (11.5-15.5); WBC 4.9 k/uL (3.8-10.6)
[2023-10-14 15:22] LABS: African American GFR (CKD) >90 (>60 ml/min/1.73 sqM); Anion Gap 7 mmol/L; Blood Urea Nitrogen 13 mg/dL (9-20); Calcium 8.9 mg/dL (8.4-10.2); Carbon Dioxide 31 mmol/L (22-30); Chloride 100 mmol/L (98-107); Glucose 107 mg/dL (74-99); Non-African American GFR(CKD) 87 (>60 ml/min/1.73 sqM); Potassium 3.9 mmol/L (3.5-5.1); Sodium 138 mmol/L (137-145)
[2023-10-14 17:01] VITALS: RESP 18
[2023-10-14] MEDS: ATORVASTATIN 20 MG TAB PO SCH (21:08)
[2023-10-14] MEDS: clonazePAM 0.5 MG TAB PO SCH (21:09)
[2023-10-15] MEDS: PANTOPRAZOLE 40 MG TABLET PO SCH (06:30)
--- NOTE | 2023-10-15 07:33 | P.PN ---
Progress Note - Text Progress Note Date: 10/15/23 Patient [place] stable. His hemoglobin was 9.3. He has no signs of GI bleed. On exam vital signs are stable. Abdomen soft. Patient has stable chronic anemia. He will undergo colonoscopy as outpatient.
[2023-10-15] MEDS: IPRATROPIUM 0.5 MG/2.5 ML NEBU INHALATION SCH ×2 (07:46→11:39)
[2023-10-15] MEDS: SYMBICORT 80-4.5 MCG INHALER INHALATION SCH (07:46)
[2023-10-15] MEDS: FERROUS SULFATE 325 MG TAB PO SCH (08:19)
[2023-10-15] MEDS: METOPROLOL TARTRATE 12.5 MG TAB PO SCH (08:19)
[2023-10-15] MEDS: POTASSIUM CHLORIDE ER 20 MEQ TAB.ER PO SCH (08:19)
[2023-10-15] MEDS: BENZONATATE 100 MG CAP PO SCH (08:19)
[2023-10-15] MEDS: guaiFENesin 600 MG TABLET.ER PO SCH (08:19)
[2023-10-15] MEDS: CITALOPRAM HYDROBROMIDE 20 MG TAB PO SCH (08:19)
[2023-10-15] MEDS: NICOTINE 14MG/24HR PATCH TRANSDERM SCH (08:19)
[2023-10-15] MEDS: CHOLECALCIFEROL 25 MCG (1000 IU) TABLET PO SCH (08:19)
[2023-10-15] MEDS: FUROSEMIDE 10 MG/ML 4 ML VIAL IV SCH (08:19)
[2023-10-15 08:36] VITALS: BP 104/55; PULSE 80; TEMP 98
[2023-10-15 09:21] LABS: Anisocytosis Slight; HCT 31.9 % (39.0-53.0); HGB 9.3 gm/dL (13.0-17.5); Hypochromasia Marked; MCH 29.6 pg (25.0-35.0); MCHC 29.3 g/dL (31.0-37.0); MCV 101.3 fL (80.0-100.0); Macrocytosis Moderate; Mean Platelet Volume 8.3; Platelet Count 205 k/uL (150-450); RBC 3.15 m/uL (4.30-5.90); WBC 4.9 k/uL (3.8-10.6)
[2023-10-15 09:38] LABS: ALT 12 U/L (4-49); AST 23 U/L (17-59); African American GFR (CKD) >90 (>60 ml/min/1.73 sqM); Albumin 2.8 g/dL (3.5-5.0); Alkaline Phosphatase 108 U/L (38-126); Anion Gap 7 mmol/L; Blood Urea Nitrogen 13 mg/dL (9-20); Calcium 8.7 mg/dL (8.4-10.2); Carbon Dioxide 28 mmol/L (22-30); Chloride 102 mmol/L (98-107); Glucose 155 mg/dL (74-99); Non-African American GFR(CKD) 88 (>60 ml/min/1.73 sqM); Potassium 3.5 mmol/L (3.5-5.1); Sodium 137 mmol/L (137-145); Total Bilirubin 0.5 mg/dL (0.2-1.3)
--- NOTE | 2023-10-15 12:44 | P.DS ---
Providers Date of admission: 10/10/23 21:18 Expected date of discharge: 10/15/23 Attending physician: Aditya Castro Consults: 10/11/23 09:42 Consult Physician Routine Consulting Provider: Faustino Olvera Consult Reason/Comments: Blood in stools Do you want consulting provider notified?: Yes 10/11/23 09:45 Consult Physician Routine Consulting Provider: Sebastien Mijares Consult Reason/Comments: Hematuria Do you want consulting provider notified?: Yes Primary care physician: Slim Holloway Hospital Course: Discharge diagnoses; Left renal mass concerning for renal cell carcinoma Blood in stools Acute blood loss anemia Hematuria Hyperlipidemia COPD Hypertension Hospital course; patient is a 73-year-old gentleman with past medical history significant for hyperlipidemia, COPD who presented to the ER for evaluation for blood in stools. Patient stated that he has been noticing he has been having blood in his stools for the last few days. Blood is bright red in color and is an excellent stools. There is no complaint of abdominal pain. No nausea, vomiting. Patient does complain of constipation and uses a lot of medications for it. Patient also been noticing that there was some blood in his urine as well. Denies any complaint of urinary retention, no complaint of increased frequency or burning micturition. Denies any chest pain or palpitation. Patient is complaining of increased fatigue. Denies any shortness of breath at rest, get short of breath on exertion. Because of the symptoms, patient came to the ER Initial lab work done in the ER showed WBC 7.3, hemoglobin 10.1, platelet count 388, sodium 38, potassium 3., BUN 19, creatinine 0.91, GFR greater than 90, glucose 91, calcium 9.3 total bilirubin 1.5, AST 45, ALT 15, UA done showed large amount of blood, nitrite negative, leukocyte esterase small amount Patient admitted to medicine service 10/12. Patient seen and examined. No further episodes of blood in the stools. No complaint of hematuria. Vital signs stable 10/13. Patient seen and examined. CT abdominal pelvis done on 10/12 showed left renal mass concerning for renal cell carcinoma. No further episodes of hematuria or blood in stools. 10/14. Patient seen and examined. Complaining of shortness of breath on exertion. Denies cough 10/15. Urology and general surgery have both cleared The patient. Patient to follow-up outpatient with urology for renal mass. PHYSICAL EXAMINATION: GENERAL: The patient is alert and oriented x3, not in any acute distress. Well developed, well nourished. HEENT: Pupils are round and equally reacting to light. EOMI. No scleral icterus. No conjunctival pallor. Normocephalic, atraumatic. No pharyngeal erythema. No thyromegaly. CARDIOVASCULAR: S1 and S2 present. No murmurs, rubs, or gallops. PULMONARY: Chest is clear to auscultation, no wheezing or crackles. ABDOMEN: Soft, nontender, nondistended, normoactive bowel sounds. No palpable organomegaly. MUSCULOSKELETAL: No joint swelling or deformity. EXTREMITIES: No cyanosis, clubbing, or pedal edema. NEUROLOGICAL: Gross neurological examination did not reveal any focal deficits. SKIN: No rashes. Dictation was produced using [employer] dictation software. please excuse any grammatical, word or spelling errors. Patient Condition at Discharge: Good Plan - Discharge Summary Discharge Rx Participant: No New Discharge Prescriptions: New guaiFENesin [Mucinex] 600 mg PO Q12HR 7 Days #14 tab Continue Citalopram Hydrobromide [CeleXA] 20 mg PO DAILY Cholecalciferol [Vitamin D3 (25 Mcg = 1000 Iu)] 50 mcg PO DAILY Acetaminophen Tab [Tylenol] 650 mg PO Q4HR PRN tab PRN Reason: Fever and/ or Mild Pain Furosemide [Lasix] 40 mg PO DAILY #30 tablet Ascorbic Acid [Vitamin C] 500 mg PO W/LUNCH Ipratropium-Albuterol Nebulize [Duoneb 0.5 mg-3 mg/3 ml Soln] 3 ml INHALATION RT-QID PRN PRN Reason: Shortness Of Breath polyethylene glycoL 3350 [Miralax] 17 gm PO DAILY PRN PRN Reason: Constipation Metoprolol Tartrate [Lopressor] 12.5 mg PO BID clonazePAM [KlonoPIN] 0.5 mg PO HS Atorvastatin [Lipitor] 20 mg PO HS Fluticasone/Umeclidin/Vilanter [Trelegy Ellipta 100-62.5-25] 1 puff INHALATION RT-DAILY Pantoprazole Sodium [Protonix] 40 mg PO DAILY #30 tab Potassium Chloride ER [K-Dur 20] 20 meq PO DAILY Ferrous Sulfate [Iron (65 MG Elemental)] 325 mg PO DAILY Discharge Medication List Citalopram Hydrobromide [CeleXA] 20 mg PO DAILY 03/07/18 [History] Cholecalciferol [Vitamin D3 (25 Mcg = 1000 Iu)] 50 mcg PO DAILY 12/11/21 [History] Acetaminophen Tab [Tylenol] 650 mg PO Q4HR PRN tab 08/08/23 [Rx] Furosemide [Lasix] 40 mg PO DAILY #30 tablet 08/12/23 [Rx] Ascorbic Acid [Vitamin C] 500 mg PO W/LUNCH 08/29/23 [History] clonazePAM [KlonoPIN] 0.5 mg PO HS 08/29/23 [History] Atorvastatin [Lipitor] 20 mg PO HS 09/14/23 [History] Fluticasone/Umeclidin/Vilanter [Trelegy Ellipta 100-62.5-25] 1 puff INHALATION RT-DAILY 09/14/23 [History] Ipratropium-Albuterol Nebulize [Duoneb 0.5 mg-3 mg/3 ml Soln] 3 ml INHALATION RT-QID PRN 09/14/23 [History] polyethylene glycoL 3350 [Miralax] 17 gm PO DAILY PRN 09/14/23 [History] Pantoprazole Sodium [Protonix] 40 mg PO DAILY #30 tab 09/19/23 [Rx] Ferrous Sulfate [Iron (65 MG Elemental)] 325 mg PO DAILY 10/10/23 [History] Metoprolol Tartrate [Lopressor] 12.5 mg PO BID 10/10/23 [History] Potassium Chloride ER [K-Dur 20] 20 meq PO DAILY 10/10/23 [History] guaiFENesin [Mucinex] 600 mg PO Q12HR 7 Days #14 tab 10/15/23 [Rx] Follow up Appointment(s)/Referral(s): Slim Holloway MD [Primary Care Provider] - 1-2 days Zakiya Powell [NON-STAFF] - Miky Tripathi MD [STAFF PHYSICIAN] - 1 Week Faustino Olvera MD [STAFF PHYSICIAN] - 1 Week Discharge Disposition: HOME SELF-CARE
--- NOTE | 2023-10-20 16:23 | CDI ---
Documentation Clarification Form Date: 10/20/2023 From: Marichuy Larios Admit Date: 10/10/2023 09:18:00 PM Patient Name: Francisco Lucio Visit Number: [id number] Discharge Date: 10/15/2023 01:35:00 PM ATTENTION: The Clinical Documentation Specialists (CDI) and [facility] Coding Staff appreciate your assistance in clarifying documentation. Please respond to the clarification below the line at the bottom and electronically sign. The CDI & [facility] Coding staff will review the response and follow-up if needed. Please note: Queries are made part of the Legal Health Record. If you have any questions, please contact the author of this message via ITS. Dr. Juan Dyer Your patient is receiving the following: Lasix IV 40mg qd. Please clarify what condition/diagnosis is being treated. History/Risk Factors: 73yo with a h/o CAD s/p 3-V CABG, HTN, HLD, s/p PPM presented with a GI bleed. Clinical Indicators: H&P 10/11 noted B/L coarse breath sound. IM PN 10/14 noted diminished breath sounds in the bases. Echocardiogram Results 09/12 (per external medical record): EF 50-55% Chest X Ray 10/11: Cardiomegaly and mild pulmonary vascular congestion. Correlate with BNP for congestive heart failure CT A/P 10/12: Small B/L pleural effusions, mild pulmonary vascular congestion CXR 10/14: Improving features of congestive heart failure with the small plueral effusions Treatment: Lasix IV 40mg qd, Lipitor po, Lopressor po. K-Dur po, SVN, supplemental O2 In your professional opinion, can you please clarify the diagnosis/condition being treated, if known? [ ] Acute Systolic Heart Failure (reduced EF) [ ] Acute on Chronic Systolic Heart Failure (reduced EF) [ ] Acute Diastolic Heart Failure (preserved EF) [ ] Acute on Chronic Diastolic Heart Failure (preserved EF) [ x] Acute Systolic & Diastolic Heart Failure [ ] Acute on Chronic Heart Failure Systolic & Diastolic Heart Failure [ ] Acute pulmonary edema, no CHF [ ] Other, please specify [ ] Unable to determine (Template Last Revised: December 2020) MTDD
== END 2023-10-15 13:35 | disposition home or self-care (01) ==
LOC: EC 18:02 → UNDOADMOB 21:17 → 3SCARD 21:17 → OBSVTOIN 21:18 → INTOOBSV 21:18 → 3SCARD 22:38 → UNDODISIN 10-15 13:35
PROVIDERS: ADMIT Hospitalist; ATTEND Hospitalist
DX: N28.89 Other specified disorders of kidney and ureter (principal); K92.1 Melena; D62 Acute posthemorrhagic anemia; R31.0 Gross hematuria; E78.5 Hyperlipidemia, unspecified; J44.9 Chronic obstructive pulmonary disease, unspecified; I11.0 Hypertensive heart disease with heart failure; I50.41 Acute combined systolic (congestive) and diastolic (congestive) heart failure; I48.91 Unspecified atrial fibrillation; I25.10 Atherosclerotic heart disease of native coronary artery without angina pectoris; K21.9 Gastro-esophageal reflux disease without esophagitis; I71.40 Abdominal aortic aneurysm, without rupture, unspecified; I34.0 Nonrheumatic mitral (valve) insufficiency; Z95.1 Presence of aortocoronary bypass graft; F32.A Depression, unspecified; F17.200 Nicotine dependence, unspecified, uncomplicated; Z95.0 Presence of cardiac pacemaker; Z79.899 Other long term (current) drug therapy; Z82.49 Family history of ischemic heart disease and other diseases of the circulatory system
CPT/HCPCS: 96376 ×3; 96361 ×4; 96374; 99285; 36415; 94640 ×7; 94760 ×2; 93005; 97162; 97165; 86900; 86901; 80053 ×4; 80048; 83735; 84484; 85025 ×5; 85027; 85610; 85730; 86850; 81001; 71046 ×2; 76770; 74178; G0378 ×6; S4990 ×5; J1940 ×4; Q9967; 96360

== ENCOUNTER → 2023-11-03 | Outpatient (CLI) | payer MEDICARE ==
--- NOTE | 2023-11-03 15:06 | CT ---
EXAMINATION TYPE: CT chest wo con DATE OF EXAM: 11/03/2023 COMPARISON: 07/19/2023 HISTORY: Interstitial pulmonary lung disease CT DLP: 558.2 mGycm. Automated Exposure Control for Dose Reduction was Utilized. TECHNIQUE: CT scan of the thorax is performed without IV contrast. FINDINGS: LUNGS: Interlobular septal thickening. Small bilateral pleural effusions and compressive atelectasis. The tracheobronchial tree is patent. There is a 2 mm nodule within the right lower lobe axial images 161 series 6. MEDIASTINUM: Lack of IV contrast is noted to limit evaluation for mediastinal and especially hilar ad enopathy. There are no definitive greater than 1 cm hilar or mediastinal lymph nodes. The heart is en larged and there is a trace of pericardial fluid. Postmedian sternotomy changes are noted. There is a cardiac pacemaker with the proximal lead overlying the right atrium and distally overlying the right ventricle. There is a atrial appendage clip. Correlate cardiac valve replacement surgery. OTHER: Mild abdominal aortic aneurysm partially included in the [id number] measuring 3.3 cm. Findi ngs suggestive of cholelithiasis. There is a renal mass extending off the anterior cortex of the left kidney measuring 2.8 cm. Is only partially included in the [id number]-[id number] but suspicious for solid re nal cell carcinoma. IMPRESSION: 1. Findings are compatible with pulmonary fibrosis would favor UIP type with underlying COPD. 2. Bilateral pleural effusions with compressive atelectasis mild superimposed interstitial pneumoniti s or venous congestion. 3. Findings suspicious for left renal cell carcinoma. 4. There is a 3.3 cm abdominal aortic aneurysm. Follow-up recommendations for incidental pulmonary nodules are per [employer] or [employer].
== END | disposition home or self-care (01) ==
LOC: RADCTMAIN 12:59
PROVIDERS: ATTEND Internal Medicine
DX: J84.9 Interstitial pulmonary disease, unspecified (principal); J90 Pleural effusion, not elsewhere classified; I71.40 Abdominal aortic aneurysm, without rupture, unspecified; J98.11 Atelectasis
CPT/HCPCS: 71250

== ENCOUNTER → 2023-12-06 | Outpatient (CLI) | payer MEDICARE ==
[2023-12-06 14:30] LABS: ALT 11 U/L (4-49); AST 24 U/L (17-59); African American GFR (CKD) 80 (>60 ml/min/1.73 sqM); Albumin 3.9 g/dL (3.5-5.0); Albumin/Globulin Ratio 1.1; Alkaline Phosphatase 110 U/L (38-126); Anion Gap 9 mmol/L; Blood Urea Nitrogen 18 mg/dL (9-20); Calcium 9.6 mg/dL (8.4-10.2); Carbon Dioxide 29 mmol/L (22-30); Chloride 103 mmol/L (98-107); Globulin 3.5 g/dL; Glucose 96 mg/dL (74-99); Non-African American GFR(CKD) 70 (>60 ml/min/1.73 sqM); Potassium 3.5 mmol/L (3.5-5.1); Sodium 141 mmol/L (137-145); Total Bilirubin 0.5 mg/dL (0.2-1.3); Total Protein 7.4 g/dL (6.3-8.2)
[2023-12-06 14:38] LABS: NT-Pro-B-Type Natriuretic Pept 1960 pg/mL
[2023-12-06 18:40] LABS: HCT 34.3 % (39.6-50.0); HGB 10.2 g/dL (13.0-17.0); MCH 29.3 pg (27.0-32.0); MCHC 29.7 g/dL (32.0-37.0); MCV 98.6 FL (80.0-97.0); Mean Platelet Volume 9.8 FL (9.5-12.2); NRBC Per 100 WBC 0 X 10*3/uL (0.00-0.01); Platelet Count 291 X 10*3/uL (140-440); RBC 3.48 X 10*6/uL (4.40-5.60); RDW 20.1 % (11.5-14.5); WBC 6.31 X 10*3/uL (4.50-10.00)
[2023-12-06 18:47] LABS: Chol/HDL Ratio 3.02 Ratio; LDL Cholesterol,Calculated 57.5 mg/dL (0.0-131.0); VLDL Calculation 18.84 mg/dL (5.00-40.00)
== END | disposition home or self-care (01) ==
LOC: LABWHC1 13:12
PROVIDERS: ATTEND Internal Medicine Interventional Cardiology
DX: E78.2 Mixed hyperlipidemia (principal); R06.9 Unspecified abnormalities of breathing
CPT/HCPCS: 36415; 80053; 80061; 83880; 85027

== ENCOUNTER 2024-04-06 13:55 | Inpatient (IN) | payer MEDICARE ==
--- NOTE | 2024-04-06 15:23 | ED ---
SOB HPI - General Chief Complaint: Shortness of Breath Stated Complaint: Post-op SOB,weakness Time Seen by Provider: 04/06/24 15:17 Source: patient, RN notes reviewed, old records reviewed, Caregiver Mode of arrival: wheelchair Limitations: no limitations - History of Present Illness Initial Comments: This is a 74-year-old male to the ER for evaluation of severe illness. Patient states he has significant swelling of the lower extremities severe palpitations elevated heart rate and shortness of breath. No recent fevers, patient is generally been feeling unwell being tired with increasing weakness, significant shortness of breath especially on exertion MD Complaint: shortness of breath, anxiety -: days(s) Severity: severe Severity scale (1-10): 7 Quality: aching Consistency: constant Improves With: nothing Worsens With: nothing Known History Of: COPD, asthma Context: recent URI, anxiety, recent illness Associated Symptoms: denies other symptoms Treatments Prior to Arrival: none - Related Data Home Medications Medication Instructions Recorded Confirmed Citalopram Hydrobromide [CeleXA] 20 mg PO DAILY 03/07/18 04/06/24 Cholecalciferol [Vitamin D3 (25 50 mcg PO W/LUNCH 12/11/21 04/06/24 Mcg = 1000 Iu)] clonazePAM [KlonoPIN] 0.5 mg PO HS 08/29/23 04/06/24 Atorvastatin [Lipitor] 20 mg PO HS 09/14/23 04/06/24 Ferrous Sulfate [Iron (65 MG 650 mg PO W/LUNCH 10/10/23 04/06/24 Elemental)] Metoprolol Tartrate [Lopressor] 12.5 mg PO BID 10/10/23 04/06/24 Potassium Chloride ER [K-Dur 20] 20 meq PO DAILY 10/10/23 04/06/24 Apixaban [Eliquis] 5 mg PO BID 04/06/24 04/06/24 Aspirin EC [Ecotrin Low Dose] 81 mg PO DAILY 04/06/24 04/06/24 Lactulose 10 - 20 gm PO BID PRN 04/06/24 04/06/24 metOLazone [Zaroxolyn] 2.5 mg PO MOFR 04/06/24 04/06/24 Previous Rx's Medication Instructions Recorded Acetaminophen Tab [Tylenol] 650 mg PO Q4HR PRN tab 08/08/23 Furosemide [Lasix] 40 mg PO DAILY #30 tablet 08/12/23 Pantoprazole Sodium [Protonix] 40 mg PO DAILY #30 tab 09/19/23 Allergies Allergy/AdvReac Type Severity Reaction Status Date / Time No Known Allergies Allergy Verified 04/06/24 18:06 Review of Systems ROS Statement: Those systems with pertinent positive or pertinent negative responses have been documented in the HPI. ROS Other: All systems not noted in ROS Statement are negative. Past Medical History Past Medical History: Atrial Fibrillation, Coronary Artery Disease (CAD), GERD/Reflux, Hyperlipidemia, Hypertension, Renal Disease Additional Past Medical History / Comment(s): Mitral regurgitation; abdominal aortic aneurysm History of Any Multi-Drug Resistant Organisms: None Reported Past Surgical History: Coronary Bypass/CABG, Heart Catheterization, Hernia Repair Additional Past Surgical History / Comment(s): three-vessel CABG with mitral valve repair 07/27/2023 Past Anesthesia/Blood Transfusion Reactions: No Reported Reaction Type of Cardiac Device: Permanent Pacemaker Device Placement Date:: 08/03/2023 [employer] Past Psychological History: Depression Smoking Status: Current every day smoker Past Alcohol Use History: None Reported Past Drug Use History: None Reported - Past Family History Father Family Medical History: Myocardial Infarction ([place]) Additional Family Medical History / Comment(s): at age 90 from a myocardial infarction General Exam Limitations: no limitations General appearance: alert, anxious Head exam: Present: atraumatic, normocephalic, normal inspection Eye exam: Present: normal appearance, PERRL, EOMI. Absent: scleral icterus, conjunctival injection, periorbital swelling ENT exam: Present: normal exam, mucous membranes moist Neck exam: Present: normal inspection. Absent: tenderness, meningismus, lymphadenopathy Respiratory exam: Present: normal lung sounds bilaterally. Absent: respiratory distress, wheezes, rales, rhonchi, stridor Cardiovascular Exam: Present: regular rate, normal rhythm, normal heart sounds. Absent: systolic murmur, diastolic murmur, rubs, gallop, clicks GI/Abdominal exam: Present: soft, normal bowel sounds. Absent: distended, tenderness, guarding, rebound, rigid Extremities exam: Present: normal inspection, full ROM, normal capillary refill. Absent: tenderness, pedal edema, joint swelling, calf tenderness Back exam: Present: normal inspection Neurological exam: Present: alert, oriented X3, CN II-XII intact Psychiatric exam: Present: normal affect, normal mood Skin exam: Present: warm, dry, intact, normal color. Absent: rash Course Vital Signs 04/06/24 04/06/24 04/06/24 14:24 16:16 16:24 Temperature 98.5 F Pulse Rate 57 L 60 60 Respiratory 18 Rate Blood Pressure 91/47 O2 Sat by Pulse 92 L Oximetry 04/06/24 04/06/24 04/06/24 21:46 23:24 23:29 Temperature 98.5 F 98.3 F Pulse Rate 63 72 60 Respiratory 18 18 18 Rate Blood Pressure 101/51 101/47 103/54 O2 Sat by Pulse 94 L 96 96 Oximetry 04/06/24 04/07/24 04/07/24 23:49 01:03 01:18 Temperature 98.2 F 98.4 F 98.4 F Pulse Rate 65 61 61 Respiratory 17 19 18 Rate Blood Pressure 100/47 109/45 98/48 O2 Sat by Pulse 94 L 96 Oximetry 04/07/24 04/07/24 04/07/24 01:38 02:06 02:26 Temperature 98.3 F 98.2 F Pulse Rate 78 66 61 Respiratory 16 18 18 Rate Blood Pressure 113/52 120/49 119/70 O2 Sat by Pulse 95 95 93 L Oximetry 04/07/24 04/07/24 04/07/24 02:45 03:05 03:13 Temperature 97.8 F 98.1 F 98.3 F Pulse Rate 68 63 61 Respiratory 16 16 16 Rate Blood Pressure 110/50 115/74 120/49 O2 Sat by Pulse 96 98 96 Oximetry 04/07/24 04:24 Temperature Pulse Rate 63 Respiratory 18 Rate Blood Pressure 108/71 O2 Sat by Pulse 94 L Oximetry - Reevaluation(s) Reevaluation #1: 04/06/24 18:34 medical record is reviewed Reevaluation #2: 04/06/24 23:04 Patient has mild improvement here in the emergency department especially with anxiolysis Reevaluation #3: 04/06/24 23:04 Patient informed of results and questions answered Reevaluation #4: Was pt. sent in by a medical professional or institution (, PA, COMMUNICATION INSTRUCTOR, urgent care, hospital, or [facility]...) When possible be specific @ -no Did you speak to anyone other than the patient for history (EMS, parent, family, police, friend...)? What history was obtained from this source @ -no Did you review nursing and triage notes (agree or disagree)? Why? @ -agree Are old charts reviewed (outside hosp., previous admission, EMS record, old EKG, old radiological studies, urgent care reports/EKG's, [facility] records)? Report findings @ -yes Differential Diagnosis (chest pain, altered mental status, abdominal pain women, abdominal pain men, vaginal bleeding, weakness, fever, dyspnea, syncope, headache, dizziness, GI bleed, back pain, seizure, CVA, palpatations, mental health, musculoskeletal)? @ -prior EKG interpreted by me (3pts min.). @ -yes X-rays interpreted by me (1pt min.). @ -yes negative for acute disease CT interpreted by me (1pt min.). @ -no U/S interpreted by me (1pt. min.). @ -no What testing was considered but not performed or refused? (CT, X-rays, U/S, labs)? Why? @ -none What meds were considered but not given or refused? Why? @ -none Did you discuss the management of the patient with other professionals (professionals i.e. , PA, COMMUNICATION INSTRUCTOR, lab, RT, psych nurse, mental health social worker, manager management, teacher, chief merchandising officer, behavioral health case manager)? Give summary @ -no Was smoking cessation discussed for >3mins.? @ -no Was critical care preformed (if so, how long)? @ -yes31 Were there social determinants of health that impacted care today? How? (Homelessness, low income, unemployed, alcoholism, drug addiction, transportation, low edu. Level, literacy, decrease access to med. care, [facility], rehab)? @ -none Was there de-escalation of care discussed even if they declined (Discuss DNR or withdrawal of care, Hospice)? DNR status @ -no What co-morbidities impacted this encounter? (DM, HTN, Smoking, COPD, CAD, Cancer, CVA, ARF, Chemo, Hep., AIDS, mental health diagnosis, sleep apnea, morbid obesity)? @ -none Was patient admitted / discharged? Hospital course, mention meds given and route, prescriptions, significant lab abnormalities, going to OR and other pertinent info. @ - 74 male with respiratory failure complicated by atrial fibrillation and RVR. Patient is placed on BiPAP to help with work of breathing significant hypoxia and CHF. Patient has adequate rate control currently and will be admitted for cardiology to see and treat Admitted Undiagnosed new problem with uncertain prognosis? @ -no Drug Therapy requiring intensive monitoring for toxicity (Heparin, Nitro, Insulin, Cardizem)? @ -no Were any procedures done? @ -no Diagnosis/symptom? @ -GI bleed CHF hypoxia Acute, or Chronic, or Acute on Chronic? @ -Acute Uncomplicated (without systemic symptoms) or Complicated (systemic symptoms)? @ -Complicated Side effects of treatment? @ -no Exacerbation, Progression, or Severe Exacerbation? @ -exacerbation Poses a threat to life or bodily function? How? (Chest pain, [place], [place], pneumonia, PE, COPD, DKA, ARF, appy, cholecystitis, CVA, Diverticulitis, Homicidal, Suicidal, threat to staff... and all critical care pts) @ -yes extremes of age and illness Reevaluation #5: Differential Dyspnea: Coronary syndrome, arrhythmia, tamponade, asthma, COPD, pulmonary embolism, pneumonia, pneumothorax, pulmonary effusion, anaphylaxis, diabetic ketoacidosis, flailed chest, pulmonary contusion, diaphragmatic rupture, anemia, neuromuscular, this is not meant to be an all-inclusive list. - Consultations Consultation #1: Spoke with [facility] who agrees to admit this patient Medical Decision Making - Medical Decision Making 74 male with respiratory failure complicated by atrial fibrillation and RVR. P atient is placed on BiPAP to help with work of breathing significant hypoxia and CHF. Patient has adequate rate control currently and will be admitted for cardiology to see and treat - Lab Data Result diagrams: 04/09/24 10:37 04/09/24 10:37 Lab Results 04/06/24 04/06/24 04/06/24 Range/Units 15:50 15:50 15:50 WBC 5.8 (3.8-10.6) k/uL RBC 1.82 L (4.30-5.90) m/uL Hgb 5.2 L* (13.0-17.5) gm/dL Hct 17.1 L* (39.0-53.0) % MCV 93.7 (80.0-100.0) fL MCH 28.4 (25.0-35.0) pg MCHC 30.3 L (31.0-37.0) g/dL RDW 17.3 H (11.5-15.5) % Plt Count 295 (150-450) k/uL MPV 8.3 Neutrophils % 73 % Lymphocytes % 18 % Monocytes % 6 % Eosinophils % 1 % Basophils % 1 % Neutrophils # 4.2 (1.3-7.7) k/uL Lymphocytes # 1.0 (1.0-4.8) k/uL Monocytes # 0.4 (0-1.0) k/uL Eosinophils # 0.1 (0-0.7) k/uL Basophils # 0.0 (0-0.2) k/uL Hypochromasia Marked Poikilocytosis Moderate Anisocytosis Slight PT 14.2 H (10.0-12.5) sec INR 1.4 H (<1.2) APTT 28.5 (22.0-30.0) sec Sodium 133 L (137-145) mmol/L Potassium 4.6 (3.5-5.1) mmol/L Chloride 100 (98-107) mmol/L Carbon Dioxide 26 (22-30) mmol/L Anion Gap 7 mmol/L BUN 48 H (9-20) mg/dL Creatinine 1.65 H (0.66-1.25) mg/dL Est GFR (CKD-EPI)AfAm 46 (>60 ml/min/1.73 sqM) Est GFR (CKD-EPI)NonAf 40 (>60 ml/min/1.73 sqM) Glucose 101 H (74-99) mg/dL Plasma Lactic Acid Stephane (0.7-2.0) mmol/L Calcium 9.3 (8.4-10.2) mg/dL Magnesium 2.2 (1.6-2.3) mg/dL Total Bilirubin 0.5 (0.2-1.3) mg/dL AST 22 (17-59) U/L ALT 15 (4-49) U/L Alkaline Phosphatase 104 (38-126) U/L Troponin I (0.000-0.034) ng/mL NT-Pro-B Natriuret Pep 1630 pg/mL Total Protein 7.1 (6.3-8.2) g/dL Albumin 3.6 (3.5-5.0) g/dL 05/17/24 05/17/24 Range/Units 15:50 15:50 WBC (3.8-10.6) k/uL RBC (4.30-5.90) m/uL Hgb (13.0-17.5) gm/dL Hct (39.0-53.0) % MCV (80.0-100.0) fL MCH (25.0-35.0) pg MCHC (31.0-37.0) g/dL RDW (11.5-15.5) % Plt Count (150-450) k/uL MPV Neutrophils % % Lymphocytes % % Monocytes % % Eosinophils % % Basophils % % Neutrophils # (1.3-7.7) k/uL Lymphocytes # (1.0-4.8) k/uL Monocytes # (0-1.0) k/uL Eosinophils # (0-0.7) k/uL Basophils # (0-0.2) k/uL Hypochromasia Poikilocytosis Anisocytosis PT (10.0-12.5) sec INR (<1.2) APTT (22.0-30.0) sec Sodium (137-145) mmol/L Potassium (3.5-5.1) mmol/L Chloride (98-107) mmol/L Carbon Dioxide (22-30) mmol/L Anion Gap mmol/L BUN (9-20) mg/dL Creatinine (0.66-1.25) mg/dL Est GFR (CKD-EPI)AfAm (>60 ml/min/1.73 sqM) Est GFR (CKD-EPI)NonAf (>60 ml/min/1.73 sqM) Glucose (74-99) mg/dL Plasma Lactic Acid Stephane 2.0 (0.7-2.0) mmol/L Calcium (8.4-10.2) mg/dL Magnesium (1.6-2.3) mg/dL Total Bilirubin (0.2-1.3) mg/dL AST (17-59) U/L ALT (4-49) U/L Alkaline Phosphatase (38-126) U/L Troponin I <0.012 (0.000-0.034) ng/mL NT-Pro-B Natriuret Pep pg/mL Total Protein (6.3-8.2) g/dL Albumin (3.5-5.0) g/dL - EKG Data -: EKG Interpreted by Me (EKG is paced 61 QRS 190 QTc 511) - Radiology Data Radiology results: report reviewed (Chest x-ray shows positive pleural effusion pulmonary edema), image reviewed Critical Care Time Critical Care Time: Yes Total Critical Care Time: 31 Disposition Clinical Impression: Weakness, GI bleed, Congestive heart failure, Anemia, Acute pulmonary edema, Chest pain Disposition: ADMITTED IP TO THIS [facility] Condition: Serious Is patient prescribed a controlled substance at d/c from ED?: No Time of Disposition: 18:30
--- NOTE | 2024-04-06 16:08 | XR ---
EXAMINATION TYPE: XR chest 1V portable DATE OF EXAM: 04/06/2024 HISTORY: Shortness of breath. COMPARISON: 10/14/2023 TECHNIQUE: Single view of the chest is submitted. FINDINGS: Demonstrated are scattered senescent parenchymal change. Small bilateral effusions. Left basilar atelectasis or developing infiltrate. The heart is stable. Hilar and mediastinal structures are within normal limits. Degenerative changes are seen of the dorsal spine. IMPRESSION: 1. Small bilateral effusions. Left basilar atelectasis or developing infiltrate. The heart is stable .
[2024-04-06] MEDS: IPRATROPIUM-ALBUTEROL 3 ML NEB INHALATION STA (16:16)
[2024-04-06 16:21] LABS: Anisocytosis Slight; Basophils % (A) 1 %; Eosinophils # (A) 0.1 k/uL (0-0.7); Eosinophils % (A) 1 %; Hypochromasia Marked; Lymphocytes % (A) 18 %; MCH 28.4 pg (25.0-35.0); MCHC 30.3 g/dL (31.0-37.0); MCV 93.7 fL (80.0-100.0); Mean Platelet Volume 8.3; Monocytes # (A) 0.4 k/uL (0-1.0); Monocytes % (A) 6 %; Neutrophils # (A) 4.2 k/uL (1.3-7.7); Neutrophils % (A) 73 %; Platelet Count 295 k/uL (150-450); Poikilocytosis Moderate; RBC 1.82 m/uL (4.30-5.90); RDW 17.3 % (11.5-15.5); WBC 5.8 k/uL (3.8-10.6)
[2024-04-06 16:36] LABS: HGB 5.2 gm/dL (13.0-17.5)
[2024-04-06 16:37] LABS: HCT 17.1 % (39.0-53.0)
[2024-04-06 16:39] LABS: INR 1.4 (<1.2); Partial Thromboplastin Time 28.5 sec (22.0-30.0); Prothrombin Time 14.2 sec (10.0-12.5)
[2024-04-06 17:09] LABS: ALT 15 U/L (4-49); AST 22 U/L (17-59); African American GFR (CKD) 46 (>60 ml/min/1.73 sqM); Albumin 3.6 g/dL (3.5-5.0); Alkaline Phosphatase 104 U/L (38-126); Anion Gap 7 mmol/L; Blood Urea Nitrogen 48 mg/dL (9-20); Calcium 9.3 mg/dL (8.4-10.2); Carbon Dioxide 26 mmol/L (22-30); Chloride 100 mmol/L (98-107); Glucose 101 mg/dL (74-99); Magnesium 2.2 mg/dL (1.6-2.3); Non-African American GFR(CKD) 40 (>60 ml/min/1.73 sqM); Potassium 4.6 mmol/L (3.5-5.1); Sodium 133 mmol/L (137-145); Total Bilirubin 0.5 mg/dL (0.2-1.3); Total Protein 7.1 g/dL (6.3-8.2)
[2024-04-06 17:15] LABS: NT-Pro-B-Type Natriuretic Pept 1630 pg/mL
[2024-04-06] MEDS: LORazepam 2 MG/ML INJ IV STA (17:18)
[2024-04-06] MEDS ORDERED: NALOXONE 0.4 MG/ML 1 ML VIAL IV PRN (18:31)
[2024-04-06] MEDS ORDERED: ONDANSETRON 4 MG/2 ML VIAL IVP PRN (18:31)
[2024-04-06] MEDS: SODIUM CHLORIDE 0.9% 1,000 ML IV SCH (20:57)
[2024-04-06] MEDS: PANTOPRAZOLE 40 MG/10 ML VIAL IV SCH (21:00)
[2024-04-06] MEDS ORDERED: ACETAMINOPHEN TAB 325 MG TAB PO PRN (21:47)
[2024-04-06] MEDS: ATORVASTATIN 20 MG TAB PO SCH (22:26)
[2024-04-06] MEDS: clonazePAM 0.5 MG TAB PO SCH (22:27)
[2024-04-07 08:26] LABS: Anisocytosis Slight; Basophils % (A) 1 %; Eosinophils # (A) 0.1 k/uL (0-0.7); Eosinophils % (A) 1 %; HCT 28.6 % (39.0-53.0); Hypochromasia Marked; Lymphocytes % (A) 18 %; MCH 29.7 pg (25.0-35.0); MCV 95.7 fL (80.0-100.0); Mean Platelet Volume 8.3; Monocytes # (A) 0.5 k/uL (0-1.0); Monocytes % (A) 10 %; Neutrophils # (A) 3.6 k/uL (1.3-7.7); Neutrophils % (A) 68 %; Platelet Count 244 k/uL (150-450); Poikilocytosis Marked; RBC 2.99 m/uL (4.30-5.90); RDW 16.2 % (11.5-15.5); WBC 5.2 k/uL (3.8-10.6)
[2024-04-07 08:40] LABS: HGB 8.9 gm/dL (13.0-17.5)
[2024-04-07] MEDS: CITALOPRAM HYDROBROMIDE 20 MG TAB PO SCH (09:25)
[2024-04-07] MEDS: METOPROLOL TARTRATE 12.5 MG TAB PO SCH (09:25)
[2024-04-07 09:44] LABS: Magnesium 2.1 mg/dL (1.6-2.3); Phosphorus 3.3 mg/dL (2.5-4.5)
[2024-04-07 11:04] LABS: African American GFR (CKD) 50 (>60 ml/min/1.73 sqM); Anion Gap 9 mmol/L; Blood Urea Nitrogen 49 mg/dL (9-20); Calcium 8.7 mg/dL (8.4-10.2); Carbon Dioxide 21 mmol/L (22-30); Chloride 104 mmol/L (98-107); Glucose 83 mg/dL (74-99); Non-African American GFR(CKD) 43 (>60 ml/min/1.73 sqM); Potassium 4.1 mmol/L (3.5-5.1); Sodium 134 mmol/L (137-145)
[2024-04-07] MEDS: CHOLECALCIFEROL 25 MCG (1000 IU) TABLET PO SCH (12:08)
[2024-04-07] MEDS: SODIUM CHLORIDE 0.9% 1,000 ML IV SCH (12:10)
--- NOTE | 2024-04-07 12:22 | P.CON ---
Consult Note - . Consult date: 04/07/24 Assessment/Plan:: This is a 74-year-old male to the ER for evaluation of severe illness. Patient states he has significant swelling of the lower extremities severe palpitations elevated heart rate and shortness of breath. No recent fevers, patient is g enerally been feeling unwell being tired with increasing weakness, significant shortness of breath especially on exertion. He was noted to have a hemoglobin of 5.2 upon arrival. After transfusion, hgb now 8.9 Review of Systems ROS Statement: Those systems with pertinent positive or pertinent negative responses have been documented in the HPI. ROS Other: All systems not noted in ROS Statement are negative. Past Medical History Past Medical History: Atrial Fibrillation, Coronary Artery Disease (CAD), GERD/Reflux, Hyperlipidemia, Hypertension, Renal Disease Additional Past Medical History / Comment(s): Mitral regurgitation; abdominal aortic aneurysm History of Any Multi-Drug Resistant Organisms: None Reported Past Surgical History: Coronary Bypass/CABG, Heart Catheterization, Hernia Repair Additional Past Surgical History / Comment(s): three-vessel CABG with mitral valve repair 07/27/2023 Past Anesthesia/Blood Transfusion Reactions: No Reported Reaction Type of Cardiac Device: Permanent Pacemaker Device Placement Date:: 08/03/2023 [employer] Past Psychological History: Depression Smoking Status: Current every day smoker Past Alcohol Use History: None Reported Past Drug Use History: None Reported - Past Family History Father Family Medical History: Myocardial Infarction ([place]) Additional Family Medical History / Comment(s): at age 90 from a myocardial infarction General Exam Limitations: no limitations General appearance: alert, anxious Head exam: Present: atraumatic, normocephalic, normal inspection Eye exam: Present: normal appearance, PERRL, EOMI. Absent: scleral icterus, conjunctival injection, periorbital swelling ENT exam: Present: normal exam, mucous membranes moist Neck exam: Present: normal inspection. Absent: tenderness, meningismus, lymphadenopathy Respiratory exam: Present: normal lung sounds bilaterally. Absent: respiratory distress, wheezes, rales, rhonchi, stridor Cardiovascular Exam: Present: regular rate, normal rhythm, normal heart sounds. Absent: systolic murmur, diastolic murmur, rubs, gallop, clicks GI/Abdominal exam: Present: soft, normal bowel sounds. Absent: distended, tenderness, guarding, rebound, rigid Extremities exam: Present: normal inspection, full ROM, normal capillary refill. Absent: tenderness, pedal edema, joint swelling, calf tenderness Back exam: Present: normal inspection Neurological exam: Present: alert, oriented X3, CN II-XII intact Psychiatric exam: Present: normal affect, normal mood Skin exam: Present: warm, dry, intact, normal color. Absent: rash 74 year old male with anemia s/p transfusion PRBCS - Continue to trend H/H - Transfuse prn - Patient may require endoscopy, will follow closely
[2024-04-07] MEDS ORDERED: ASCORBIC ACID 500 MG TAB PO SCH (12:30)
--- NOTE | 2024-04-07 22:37 | P.HPIM ---
History of Present Illness H&P Date: 04/07/24 Chief Complaint: Exertional dyspnea Patient is a 74-year-old male with a past medical history of atrial fibrillation on anticoagulation with Eliquis, history of mitral valve repair in July 2023, history of CABG, permanent pacemaker placement, hypertension, hyperlipidemia, GERD, depression currently everyday smoker presents to ER with complaints of shortness of breath, leg swelling and generalized weakness. Patient states he has been having significant leg swelling, shortness of breath and palpitations. He was also feeling tired and also exertional dyspnea. Ryan es any complaints of nausea or vomiting. Patient states that he noted to have occasional dark-colored stools. Denies any fever or chills. No recent illnesses. No cough or sputum production. Chest x-ray showed small bilateral pleural effusions. Left basilar atelectasis or developing infiltrate. The heart is stable. EKG showed electronic ventricular pacemaker rhythm. Laboratory test showed WBC 5.8 hemoglobin 5.2 and platelets 295 RDW 17.3 INR 1.4, sodium 133 potassium 4.6 chloride 100 bicarb is 26 BUN 48 and creatinine 1.65 and blood sugar 101 liver enzymes are not elevated troponin negative and proBNP 1630 Review of Systems Constitutional: Patient denies any fever or chills . Generalized weakness fatigue and tiredness.. Abdomen: Patient denied nausea vomiting and diarrhea and abdominal pain. Cardiovascular: Patient denies any chest pain. Short of breath no palpitations. Positive for leg swelling Respiratory: patient denied any cough is from production. Exertional shortness of breath Neurologic: Patient denied any numbness or tingling headache. Musculoskeletal: Patient denies any complaints of joint swelling or deformity. Skin: Negative Psychiatric: Negative Endocrine: No heat or cold intolerance. No recent weight gain. Genitourinary: No dysuria or hematuria. All other 14 point ROS negative except the above Past Medical History Past Medical History: Atrial Fibrillation, Coronary Artery Disease (CAD), GERD/Reflux, Hyperlipidemia, Hypertension, Renal Disease Additional Past Medical History / Comment(s): Mitral regurgitation; abdominal aortic aneurysm History of Any Multi-Drug Resistant Organisms: None Reported Past Surgical History: Coronary Bypass/CABG, Heart Catheterization, Hernia Repair Additional Past Surgical History / Comment(s): three-vessel CABG with mitral valve repair 07/27/2023 Past Anesthesia/Blood Transfusion Reactions: No Reported Reaction Type of Cardiac Device: Permanent Pacemaker Device Placement Date:: 08/03/2023 [employer] Past Psychological History: Depression Smoking Status: Current every day smoker Past Alcohol Use History: None Reported Additional Past Alcohol Use History / Comment(s): STARTED SMOKING AT AGE 15 QUIT ON AND OFF AND CURRENTLY SMOKING , SMOKES 1 PPD Past Drug Use History: None Reported - Past Family History Father Family Medical History: Myocardial Infarction ([place]) Additional Family Medical History / Comment(s): at age 90 from a myocardial infarction Medications and Allergies Home Medications Medication Instructions Recorded Confirmed Type Citalopram Hydrobromide [CeleXA] 20 mg PO DAILY 03/07/18 04/06/24 History Cholecalciferol [Vitamin D3 (25 50 mcg PO W/LUNCH 12/11/21 04/06/24 History Mcg = 1000 Iu)] Acetaminophen Tab [Tylenol] 650 mg PO Q4HR PRN tab 08/08/23 04/06/24 Rx Furosemide [Lasix] 40 mg PO DAILY #30 tablet 08/12/23 04/06/24 Rx Ascorbic Acid [Vitamin C] 500 mg PO W/LUNCH 08/29/23 04/06/24 History clonazePAM [KlonoPIN] 0.5 mg PO HS 08/29/23 04/06/24 History Atorvastatin [Lipitor] 20 mg PO HS 09/14/23 04/06/24 History Pantoprazole Sodium [Protonix] 40 mg PO DAILY #30 tab 09/19/23 04/06/24 Rx Ferrous Sulfate [Iron (65 MG 650 mg PO W/LUNCH 10/10/23 04/06/24 History Elemental)] Metoprolol Tartrate [Lopressor] 12.5 mg PO BID 10/10/23 04/06/24 History Potassium Chloride ER [K-Dur 20] 20 meq PO DAILY 10/10/23 04/06/24 History Apixaban [Eliquis] 5 mg PO BID 04/06/24 04/06/24 History Aspirin EC [Ecotrin Low Dose] 81 mg PO DAILY 04/06/24 04/06/24 History Lactulose 10 - 20 gm PO BID PRN 04/06/24 04/06/24 History metOLazone [Zaroxolyn] 2.5 mg PO MOFR 04/06/24 04/06/24 History Allergies Allergy/AdvReac Type Severity Reaction Status Date / Time No Known Allergies Allergy Verified 04/06/24 18:06 Physical Exam Vitals: Vital Signs Temp Pulse Resp BP Pulse Ox 04/07/24 09:09 94 L 04/07/24 04:24 63 18 108/71 94 L 04/07/24 03:13 98.3 F 61 16 120/49 96 04/07/24 03:05 98.1 F 63 16 115/74 98 04/07/24 02:45 97.8 F 68 16 110/50 96 04/07/24 02:26 61 18 119/70 93 L 04/07/24 02:06 98.2 F 66 18 120/49 95 04/07/24 01:38 98.3 F 78 16 113/52 95 04/07/24 01:18 98.4 F 61 18 98/48 04/07/24 01:03 98.4 F 61 19 109/45 96 04/06/24 23:49 98.2 F 65 17 100/47 94 L 04/06/24 23:29 98.3 F 60 18 103/54 96 04/06/24 23:24 98.5 F 72 18 101/47 96 04/06/24 21:46 63 18 101/51 94 L 04/06/24 16:24 60 04/06/24 16:16 60 04/06/24 14:24 98.5 F 57 L 18 91/47 92 L Intake and Output 04/06/24 04/07/24 04/07/24 22:59 06:59 14:59 Intake Total 873 Balance 873 Intake: Blood Product 873 Rc As-1 Unit 310 [id number] Rc Pheresis 2 As3 Unit 281 [id number] Rc Pheresis 2 As3 Unit 282 [id number] Other 0 Rc Pheresis 2 As3 Unit 0 [id number] Other: Weight 54.431 kg PHYSICAL EXAMINATION: Patient is lying in the bed comfortably, no acute distress, awake alert and oriented.. HEENT: Normocephalic. Neck is supple. Pupils reactive. Nostrils clear. Oral cavity is moist. Neck reveals no JVD, carotid bruits, or thyromegaly. CHEST EXAMINATION: Trachea is central. Symmetrical expansion. Lung renae clear to auscultation and percussion. CARDIAC: Normal S1, S2 with no gallops. No murmurs ABDOMEN: Soft. Bowel sounds normal. No organomegaly. No abdominal bruits. Extremities: reveal no edema. No clubbing or cyanosis Neurologically awake, alert, oriented x3 with well-coordinated movements. No focal deficits noted Skin: No rash or skin lesions. Psychiatric: Coperative. Nonsuicidal Musculoskeletal: No joint swelling or deformity. Normal range of motion. Results CBC & Chem 7: 04/07/24 07:45 04/07/24 07:45 Labs: Abnormal Lab Results - Last 24 Hours (Table) 04/06/24 04/06/24 04/06/24 Range/Units 15:50 15:50 15:50 RBC 1.82 L (4.30-5.90) m/uL Hgb 5.2 L* (13.0-17.5) gm/dL Hct 17.1 L* (39.0-53.0) % MCHC 30.3 L (31.0-37.0) g/dL RDW 17.3 H (11.5-15.5) % PT 14.2 H (10.0-12.5) sec INR 1.4 H (<1.2) Sodium 133 L (137-145) mmol/L BUN 48 H (9-20) mg/dL Creatinine 1.65 H (0.66-1.25) mg/dL Glucose 101 H (74-99) mg/dL Crossmatch 04/06/24 04/07/24 Range/Units 18:58 07:45 RBC 2.99 L (4.30-5.90) m/uL Hgb 8.9 L D (13.0-17.5) gm/dL Hct 28.6 L (39.0-53.0) % MCHC (31.0-37.0) g/dL RDW 16.2 H (11.5-15.5) % PT (10.0-12.5) sec INR (<1.2) Sodium (137-145) mmol/L BUN (9-20) mg/dL Creatinine (0.66-1.25) mg/dL Glucose (74-99) mg/dL Crossmatch See Detail Thrombosis Risk Factor Assmnt - DVT/VTE Prophylaxis DVT/VTE Prophylaxis: Mechanical Prophylaxis ordered Assessment and Plan Assessment: Symptomatic anemia Acute blood loss anemia likely due to GI bleed with hemoglobin 5.2 on admission Acute kidney injury with creatinine 1.65 on admission baseline 1.0 Chronic atrial fibrillation on anticoagulation with Eliquis History of CABG and mitral valve repair History of permanent pacemaker placement Hypertension GERD Hyperlipidemia Depression Current everyday smoker DVT prophylaxis with SCDs Plan: Patient will be continued on IV hydration with normal saline and clear liquid diet. Aspirin and Eliquis is on hold. Patient was transfused with 3 units of PRBC Continue with Protonix IV twice daily Continue other home medications as well and follow-up closely. General surgery is on board and is planning for EGD. Continue to monitor H&H. Prognosis guarded. Time with Patient: Greater than 30
[2024-04-08 06:33] LABS: Anisocytosis Slight; Basophils % (A) 1 %; Eosinophils # (A) 0.1 k/uL (0-0.7); Eosinophils % (A) 1 %; HCT 29.6 % (39.0-53.0); HGB 9.1 gm/dL (13.0-17.5); Hypochromasia Marked; Lymphocytes % (A) 19 %; MCH 29.5 pg (25.0-35.0); MCHC 30.9 g/dL (31.0-37.0); MCV 95.6 fL (80.0-100.0); Mean Platelet Volume 7.8; Monocytes # (A) 0.3 k/uL (0-1.0); Monocytes % (A) 6 %; Neutrophils # (A) 3.6 k/uL (1.3-7.7); Neutrophils % (A) 70 %; Platelet Count 251 k/uL (150-450); Poikilocytosis Marked; RDW 16.9 % (11.5-15.5); WBC 5.1 k/uL (3.8-10.6)
[2024-04-08 06:53] LABS: African American GFR (CKD) 68 (>60 ml/min/1.73 sqM); Anion Gap 4 mmol/L; Blood Urea Nitrogen 29 mg/dL (9-20); Calcium 8.8 mg/dL (8.4-10.2); Carbon Dioxide 25 mmol/L (22-30); Chloride 107 mmol/L (98-107); Glucose 72 mg/dL (74-99); Non-African American GFR(CKD) 59 (>60 ml/min/1.73 sqM); Potassium 3.7 mmol/L (3.5-5.1); Sodium 136 mmol/L (137-145)
--- NOTE | 2024-04-08 11:18 | P.PN ---
Subjective Progress Note Date: 04/08/24 Principal diagnosis: Anemia Patient doing well today. Says he came into the hospital because of shortness of breath. Hemoglobin was in the 5 range. Patient had last EGD and colonoscopy in August. Patient denies rectal bleeding or melena. Hemoglobin is stable at this time. No shortness of breath currently. He is asking for solid foods. Objective - Vital Signs Vital signs: Vital Signs Temp 97.7 F 04/08/24 08:00 Pulse 64 04/08/24 08:00 Resp 16 04/08/24 08:00 BP 131/57 04/08/24 08:00 Pulse Ox 92 L 04/08/24 08:00 FiO2 Intake & Output 04/07/24 04/08/24 04/08/24 18:59 06:59 18:59 Intake Total 280 540 477 Balance 280 540 477 Intake: Oral 280 540 477 Other: Voiding Method Toilet Urinal # Voids 1 - Exam Abdomen: Soft, nontender, nondistended - Labs CBC & Chem 7: 04/08/24 06:06 04/08/24 06:06 Labs: Abnormal Lab Results - Last 24 Hours (Table) 04/08/24 04/08/24 Range/Units 06:06 06:06 RBC 3.10 L (4.30-5.90) m/uL Hgb 9.1 L (13.0-17.5) gm/dL Hct 29.6 L (39.0-53.0) % MCHC 30.9 L (31.0-37.0) g/dL RDW 16.9 H (11.5-15.5) % Sodium 136 L (137-145) mmol/L BUN 29 H (9-20) mg/dL Glucose 72 L (74-99) mg/dL Assessment and Plan (1) Anemia Narrative/Plan: 74-year-old male with anemia. Patient with history of colon polyp and cecal AVM. We discussed the options of repeating upper and lower endoscopy given his recurrent admission for anemia. He is not interested in doing so. He is not having any visible bleeding. If repeat endoscopy planned favor GI to perform the procedure as the patient may require additional ablation techniques for his AVM on the right side of the colon. Resume regular diet. May discharge from our point of view. Outpatient follow-up with GI. Current Visit: Yes Status: Acute Code(s): D64.9 - ANEMIA, UNSPECIFIED SNOMED Code(s): 690913501
[2024-04-08] MEDS: NICOTINE 14MG/24HR PATCH TRANSDERM SCH (18:01)
[2024-04-08] MEDS: ALPRAZolam 0.25 MG TAB PO PRN (21:39)
[2024-04-09 11:19] VITALS: TEMP 98.4
[2024-04-09 11:35] LABS: Anisocytosis Slight; Basophils % (A) 1 %; Eosinophils # (A) 0.1 k/uL (0-0.7); Eosinophils % (A) 1 %; HCT 30.2 % (39.0-53.0); HGB 9.4 gm/dL (13.0-17.5); Hypochromasia Marked; Lymphocytes # (A) 0.8 k/uL (1.0-4.8); Lymphocytes % (A) 14 %; MCHC 31.2 g/dL (31.0-37.0); MCV 96.4 fL (80.0-100.0); Macrocytosis Slight; Mean Platelet Volume 8.2; Monocytes # (A) 0.3 k/uL (0-1.0); Monocytes % (A) 5 %; Neutrophils # (A) 4.4 k/uL (1.3-7.7); Neutrophils % (A) 78 %; Platelet Count 240 k/uL (150-450); Poikilocytosis Moderate; RBC 3.13 m/uL (4.30-5.90); RDW 17.2 % (11.5-15.5); WBC 5.7 k/uL (3.8-10.6)
[2024-04-09 11:46] LABS: African American GFR (CKD) 77 (>60 ml/min/1.73 sqM); Anion Gap 3 mmol/L; Blood Urea Nitrogen 17 mg/dL (9-20); Calcium 8.4 mg/dL (8.4-10.2); Carbon Dioxide 24 mmol/L (22-30); Chloride 109 mmol/L (98-107); Glucose 106 mg/dL (74-99); Non-African American GFR(CKD) 66 (>60 ml/min/1.73 sqM); Potassium 3.6 mmol/L (3.5-5.1); Sodium 136 mmol/L (137-145)
[2024-04-09] MEDS ORDERED: ZINC OXIDE PASTE (Z-GUARD) 1 APPLIC TOPICAL PRN (12:52)
--- NOTE | 2024-04-09 13:41 | P.PN ---
Subjective Progress Note Date: 04/09/24 CHIEF COMPLAINT: Anemia HISTORY OF PRESENT ILLNESS: Patient is lying in bed comfortably. Patient reports no rectal bleeding or melena. He is tolerating diet. Hemoglobin is up from 9.1-9.4. Patient had last EGD and colonoscopy in August. PHYSICAL EXAM: VITAL SIGNS: Reviewed. GENERAL: Well-developed in no acute distress. ABDOMEN: Soft. Nondistended. Nontender. ASSESSMENT: 1. Anemia. Patient has history of colon polyp and cecal AVM. Denies any visible bleeding. PLAN: -Patient has no interest in repeating upper and lower endoscopy. He has no active bleeding. Hemoglobin is stable. He is tolerating diet. He can be discharged from surgical standpoint. -If repeat endoscopy planned favor GI to perform the procedure as the patient may require additional ablation techniques for his AVM on the right side of the colon. -Recommend outpatient follow-up with GI service Physician Lobster Catcher note has been reviewed by physician. Signing provider agrees with the documented findings, assessment, and plan of care. Objective - Vital Signs Vital signs: Vital Signs Temp 98.4 F 04/09/24 08:00 Pulse 80 04/09/24 08:00 Resp 16 04/09/24 08:00 BP 145/71 04/09/24 08:00 Pulse Ox 97 04/09/24 08:00 FiO2 Intake & Output 04/08/24 04/09/24 04/09/24 18:59 06:59 18:59 Intake Total 977 0 240 Balance 977 0 240 Intake: Oral 977 0 240 Other: Voiding Method Toilet Urinal # Voids 0 # Bowel Movements 0 - Labs CBC & Chem 7: 04/09/24 10:37 04/09/24 10:37 Labs: Abnormal Lab Results - Last 24 Hours (Table) 04/09/24 04/09/24 Range/Units 10:37 10:37 RBC 3.13 L (4.30-5.90) m/uL Hgb 9.4 L (13.0-17.5) gm/dL Hct 30.2 L (39.0-53.0) % RDW 17.2 H (11.5-15.5) % Lymphocytes # 0.8 L (1.0-4.8) k/uL Sodium 136 L (137-145) mmol/L Chloride 109 H (98-107) mmol/L Glucose 106 H (74-99) mg/dL
[2024-04-09 14:20] VITALS: BP 113/64; PULSE 61; RESP 18
--- NOTE | 2024-04-16 20:11 | CDI ---
Documentation Clarification Form Date: 04/16/2024 08:02:10 PM From: Yudelka Barrios Phone: Admit Date: 04/06/2024 06:33:00 PM Patient Name: Francisco Lucio Visit Number: [id number] Discharge Date: 04/09/2024 03:47:00 PM ATTENTION: The Clinical Documentation Specialists (CDI) and [facility] Coding Staff appreciate your assistance in clarifying documentation. Please respond to the clarification below the line at the bottom and electronically sign. The CDI & [facility] Coding staff will review the response and follow-up if needed. Please note: Queries are made part of the Legal Health Record. If you have any questions, please contact the author of this message via ITS. Dr. Kristin Diaz Hypoxic Respiratory Failure is documented per ED Note which may lack sufficient clinical evidence/support in the medical record. Additional clarification is requested. Patient history/risk factors: 74yo M, ABLA, Hx colon polyp,cecalAVM, JOSE, chronic A Fib, PPM, HTN, HLD, GERD, depression, asthma/COPD, smoker Clinical Indicators: O2 Sat by Pulse 92 L Treatment: Patient isplaced on BiPAPto help with work of breathing significant hypoxiaandCHF. After work up and study, please clarify which diagnosis is most appropriate? [ ] Respiratory Failure ruled out [ x ] Acute Hypoxic Respiratory Failure is a valid diagnosis as evidenced by the following: _Requiring BiPAP on admission [ ] Chronic Hypoxic Respiratory Failure is a valid diagnosis as evidenced by the following: [ ] Acute on Chronic Hypoxic Respiratory Failure is a valid diagnosis as evidenced by the following: [ ] Unable to determine [ ] Other, please specify (Template Last Revised: November 2023) MTDD
== END 2024-04-09 15:47 | disposition home or self-care (01) | DRG 811 ==
LOC: EC 13:55 → 3SCARD 18:33
PROVIDERS: ADMIT Hospitalist; ATTEND Hospitalist
PROC: 5A09357 Assistance with Respiratory Ventilation, Less than 24 Consecutive Hours, Continuous Positive Airway Pressure (ICD-10-PCS; principal; 2024-04-06)
PROC: 30233N1 Transfusion of Nonautologous Red Blood Cells into Peripheral Vein, Percutaneous Approach (ICD-10-PCS; 2024-04-06)
DX: D62 Acute posthemorrhagic anemia (principal); J96.01 Acute respiratory failure with hypoxia; K55.21 Angiodysplasia of colon with hemorrhage; N17.9 Acute kidney failure, unspecified; I48.20 Chronic atrial fibrillation, unspecified; F32.A Depression, unspecified; J44.89 Other specified chronic obstructive pulmonary disease; I10 Essential (primary) hypertension; E78.5 Hyperlipidemia, unspecified; I25.10 Atherosclerotic heart disease of native coronary artery without angina pectoris; K21.9 Gastro-esophageal reflux disease without esophagitis; F17.210 Nicotine dependence, cigarettes, uncomplicated; Z79.01 Long term (current) use of anticoagulants; Z95.1 Presence of aortocoronary bypass graft; Z95.0 Presence of cardiac pacemaker; Z79.82 Long term (current) use of aspirin; Z79.899 Other long term (current) drug therapy; Z87.19 Personal history of other diseases of the digestive system; Z86.79 Personal history of other diseases of the circulatory system
CPT/HCPCS: 36415; 36430; 71045; 80048; 80053; 83605; 83735; 83880; 84100; 84484; 85025; 85610; 85730; 86850; 86900; 86901; 86920; 93005; 94640; 94760; 96374; 96375; 99291

== ENCOUNTER → 2024-04-13 | Outpatient (CLI) | payer MEDICARE ==
--- NOTE | 2024-05-01 19:56 | CT ---
EXAMINATION TYPE: CT abdomen pelvis wo con CT DLP: 349.5 mGycm, Automated exposure control for dose reduction was used. 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 Multiplanar reformats generated. Contrast used: mL of , (none if empty) Oral contrast used: without Oral Contrast (none if empty) Thank you for your patience as we all face increasing demand for medical imaging services, and work t owards delivering both timely and relevant results to the benefit of our patients. FINDINGS: Examination is limited with no contrast administered. LOWER CHEST: Moderate bilateral pleural effusions with adjacent opacities. Background chronic interst itial changes and bronchitic thickening in both lungs. Partially seen sternotomy wires. Partially see n pacemaker wires extend to the RA and RV. Heavy calcification versus prostheses of the aortic and mi tral valves. Moderate to heavy calcification of the [place] coronary arteries with likely post-CABG ch anges. There is left atrial appendage occlusion device. The ascending aorta is about 3.5 cm, descendi ng 2.6 cm. The pulmonary trunk is approximately 4.1 cm, considered enlarged. Heart appears mildly to moderately enlarged. ABDOMEN LIVER: Unremarkable GALLBLADDER AND BILE DUCTS: Possible small amount of layering sludge. No focal dense calcified stone. PANCREAS: Unremarkable. SPLEEN: Unremarkable. ADRENAL GLANDS: Mildly thickened, may be seen with hyperplasia.. KIDNEYS AND URETERS: Not well evaluated without contrast. Left renal cancer is reported, this could b e represented by nearly isoattenuating structure from the anteromedial kidney measuring 2.9 cm? This seems to correspond to the previous CT. Regardless, there are small calcifications in the renal radha r regions, which could represent collecting system calculi, or vascular. No gross evidence of hydrour eteronephrosis or ureteral stone. Mild bilateral perinephric stranding. PELVIS BLADDER: Mostly decompressed and not fully assessed but grossly unremarkable. REPRODUCTIVE: Prostate appears mildly enlarged measuring 4.6 cm transverse. There is some coarse calc ification in its posterior inferior aspect eccentric to the left. ABDOMEN & PELVIS STOMACH AND BOWEL: Stomach and small bowel are nondistended, no evidence of obstruction. Mild to mo derate stool throughout the colon. Appendix appears normal. PERITONEUM/RETROPERITONEUM: No evidence of pneumoperitoneum or free fluid. There is diffuse hazines s of the mesenteric fat, could be due to edema. VASCULATURE: Moderate to severe atherosclerotic calcifications are present throughout the abdominal a mo and its branches. There are areas of bilobed infrarenal ectasia seen, up to 3.1 cm and 3.3 cm. LYMPH NODES: No enlarged nodes by CT size criteria. SOFT TISSUE/ABDOMINAL WALL: Generalized haziness of the fat suggesting edema. MUSCULOSKELETAL: No acute osseous abnormalities. Mild/moderate diffuse degenerative changes. Sternot rae wires. IMPRESSION: 1. Limited unenhanced exam. 2. Partially seen chest findings suggestive of decompensated CHF including cardiomegaly, moderate bi lateral pleural effusions (with adjacent atelectasis/infiltrates), post-CABG changes and permanent pa cemaker. 3. Ectasia ascending thoracic aorta to 3.5 cm. 4. Pulmonary trunk is approximately 4.1 cm, considered enlarged. This can be seen with pulmonary art erial hypertension. 5. Kidneys not well evaluated without contrast. Left renal cancer is reported, this could be represe nted by nearly isoattenuating structure from the anteromedial kidney measuring 2.9 cm? 6. There are a few small calcifications in the renal hilar regions, which could represent collecting system calculi, or vascular. No gross evidence of hydroureteronephrosis or ureteral stone. Mild bila teral perinephric stranding. 7. Mild prostatomegaly. 8. Moderate to severe atherosclerotic calcification of the aorta and branches. There are areas of bi lobed infrarenal ectasia seen, up to 3.1 cm and 3.3 cm.
== END | disposition home or self-care (01) ==
LOC: RADCTMAIN 15:53
PROVIDERS: ATTEND Urology
DX: D41.02 Neoplasm of uncertain behavior of left kidney (principal); N40.0 Benign prostatic hyperplasia without lower urinary tract symptoms; I70.0 Atherosclerosis of aorta; I77.810 Thoracic aortic ectasia
CPT/HCPCS: 74176

== ENCOUNTER 2024-05-03 06:46 | Inpatient (IN) | payer MEDICARE ==
[2024-05-01 10:14] VITALS: BMI 22.6
[2024-05-03] MEDS ORDERED: HYDROmorphone 0.5 MG/0.5 ML SYRINGE IVP PRN (07:18)
[2024-05-03] MEDS: LACTATED RINGERS 1,000 ML IV SCH (07:31)
[2024-05-03] MEDS: IV FLUID CONTINUATION 1,000 ML IV ONE ×2 (07:32→11:18)
[2024-05-03 08:18] LABS: Anisocytosis Slight; Basophils % (A) 1 %; Eosinophils # (A) 0.1 k/uL (0-0.7); Eosinophils % (A) 1 %; HCT 32.5 % (39.0-53.0); HGB 10.3 gm/dL (13.0-17.5); Hypochromasia Slight; Lymphocytes # (A) 0.8 k/uL (1.0-4.8); Lymphocytes % (A) 15 %; MCH 31.8 pg (25.0-35.0); MCHC 31.6 g/dL (31.0-37.0); MCV 100.6 fL (80.0-100.0); Macrocytosis Moderate; Mean Platelet Volume 8.2; Monocytes # (A) 0.4 k/uL (0-1.0); Monocytes % (A) 7 %; Neutrophils # (A) 4.1 k/uL (1.3-7.7); Neutrophils % (A) 75 %; Platelet Count 186 k/uL (150-450); RBC 3.23 m/uL (4.30-5.90); RDW 18.3 % (11.5-15.5); WBC 5.4 k/uL (3.8-10.6)
[2024-05-03] MEDS: MIDAZOLAM 2 MG/2 ML VIAL IV ONE (08:25)
--- NOTE | 2024-05-03 08:29 | P.GSHP ---
History of Present Illness H&P Date: 05/02/24 Chief Complaint: Left renal mass The patient is a 74 year-old male who presented with bright red blood per rectum as well as gross hematuria in September 2023. He denied dysuria, but did report increased urinary frequency, urinary urgency with occasional urge incontinence, and urinary incontinence without awareness. He denies any prior history of UTIs or urolithiasis. CT scan showed a 2.8 cm left renal mass. Cystoscopy showed evidence of BPH but was otherwise unremarkable. Patient was advised to undergo a left radical nephrectomy, as he was felt to be a poor candidate for cryosurgery or partial nephrectomy, given the location of the tumor. The hematuria resolved despite the fact that he was taking Eliquis for atrial fibrillation. He is currently off Eliquis, and was recently hospitalized due to anemia. His imaging was reviewed by an interventional radiologist, who felt that he was not a candidate for cryosurgery and was also concerned there may be tumor thrombus within a segmental vein. - Constitutional Constitutional: Denies chills, Denies fever - Cardiovascular Cardiovascular: Reports high blood pressure - Gastrointestinal Gastrointestinal: Reports constipation - Genitourinary (Male) Genitourinary: Reports hematuria, Denies dysuria, Denies flank pain Past Medical History Past Medical History: Atrial Fibrillation, Coronary Artery Disease (CAD), GERD/Reflux, Hyperlipidemia, Hypertension, Renal Disease Additional Past Medical History / Comment(s): "mass left kidney spread to vein", recent admission for progressive weakness,sob,peripheral edema,anemia-received 3 units pRBCs on 04-06-24 and 04-07-24, hx Mitral regurgitation; abdominal aortic aneurysm History of Any Multi-Drug Resistant Organisms: None Reported Past Surgical History: Coronary Bypass/CABG, Heart Catheterization, Hernia Repair, Pacemaker Additional Past Surgical History / Comment(s): three-vessel CABG with mitral valve repair 07/27/2023 Past Anesthesia/Blood Transfusion Reactions: No Reported Reaction Additional Past Anesthesia/Blood Transfusion Reaction / Comment(s): no problems with prior blood transfusions last transfused 04-06-24/04-07-24 (total 3 units) Type of Cardiac Device: Permanent Pacemaker Device Placement Date:: Smoking Status: Current every day smoker - Past Family History Father Family Medical History: Myocardial Infarction (MA) Additional Family Medical History / Comment(s): at age 90 from a myocardial infarction Medications and Allergies Home Medications Medication Instructions Recorded Confirmed Type Citalopram Hydrobromide [CeleXA] 20 mg PO QAM 03/07/18 05/01/24 History Cholecalciferol [Vitamin D3 (25 50 mcg PO W/LUNCH 12/11/21 05/01/24 History Mcg = 1000 Iu)] Acetaminophen Tab [Tylenol] 650 mg PO Q4HR PRN tab 08/08/23 05/01/24 Rx clonazePAM [KlonoPIN] 0.5 mg PO HS 08/29/23 05/01/24 History Atorvastatin [Lipitor] 20 mg PO HS 09/14/23 05/01/24 History Ferrous Sulfate [Iron (65 MG 650 mg PO W/LUNCH 10/10/23 05/01/24 History Elemental)] Metoprolol Tartrate [Lopressor] 12.5 mg PO BID 10/10/23 05/01/24 History Aspirin EC [Ecotrin Low Dose] 81 mg PO DAILY 04/06/24 05/01/24 History Lactulose 10 - 20 gm PO BID PRN 04/06/24 05/01/24 History metOLazone [Zaroxolyn] 2.5 mg PO MOFR 04/06/24 05/01/24 History Ascorbic Acid [Vitamin C] 500 mg PO DAILY 05/01/24 05/01/24 History Furosemide [Lasix] 40 mg PO QAM 05/01/24 05/01/24 History Pantoprazole Sodium [Protonix] 40 mg PO QAM 05/01/24 05/01/24 History Potassium Chloride [Klor-Con M20] 20 meq PO QAM 05/01/24 05/01/24 History Allergies Allergy/AdvReac Type Severity Reaction Status Date / Time No Known Allergies Allergy Verified 05/01/24 09:58 Surgical - Exam - General well developed, well nourished, no distress - Neck no masses, trachea midline - Respiratory normal respiratory effort - Abdomen Abdomen: soft, non tender, no guarding, no rigid, no rebound - Genitourinary normal penis with no external lesions, testicles non-tender - Psychiatric oriented to time, oriented to person, oriented to place, speech is normal, memory intact Results - Imaging CT scan - abdomen: report reviewed, image reviewed Assessment and Plan (1) 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 The procedure has been reviewed in detail with the patient and his family. They have been made aware of potential risks, which include anesthesia, bleeding, infection, injury to adjacent organs, postoperative paralytic ileus, and wound related complications. They are also aware of the possibility that the lesion may not be malignant, and the fact that his overall renal function will be diminished.
[2024-05-03] MEDS: DEXAMETHASONE SOD PHOSPHATE 4 MG/ML 1 ML VIAL IVP STA (08:30)
[2024-05-03] MEDS: ONDANSETRON 4 MG/2 ML VIAL IVP STA (08:31)
[2024-05-03 08:42] LABS: Prothrombin Time 10.6 sec (10.0-12.5)
[2024-05-03] MEDS ORDERED: ROCURONIUM 10 MG/ML (5 ML VIAL) IV ONE (08:49)
[2024-05-03] MEDS ORDERED: GLYCOPYRROLATE 0.2 MG/ML 2 ML VIAL ONE (08:49)
[2024-05-03] MEDS ORDERED: LIDOCAINE 1% INJ 10MG/ML (20 ML MDV) ONE (08:49)
[2024-05-03] MEDS ORDERED: PHENYLEPHRINE 10 MG/ML VIAL ONE (08:49)
[2024-05-03] MEDS ORDERED: MIDAZOLAM 2 MG/2 ML VIAL ONE (08:49)
[2024-05-03] MEDS ORDERED: PROPOFOL 10 MG/ML 20 ML VIAL IV ONE (08:49)
[2024-05-03] MEDS ORDERED: SUCCINYLCHOLINE CHLORIDE 200 MG/10 ML VIAL IV ONE (08:49)
[2024-05-03] MEDS ORDERED: fentaNYL (PF) 50 MCG/ML 2 ML AMP ONE (08:49)
[2024-05-03] MEDS ORDERED: NEOSTIGMINE 1 MG/ML 10 ML VIAL ONE (08:49)
[2024-05-03 08:56] LABS: African American GFR (CKD) 83 (>60 ml/min/1.73 sqM); Anion Gap 3 mmol/L; Blood Urea Nitrogen 23 mg/dL (9-20); Calcium 9.1 mg/dL (8.4-10.2); Carbon Dioxide 30 mmol/L (22-30); Chloride 104 mmol/L (98-107); Glucose 93 mg/dL (74-99); Non-African American GFR(CKD) 72 (>60 ml/min/1.73 sqM); Potassium 3.4 mmol/L (3.5-5.1); Sodium 137 mmol/L (137-145)
[2024-05-03] MEDS ORDERED: NALOXONE 0.4 MG/ML 1 ML VIAL IV PRN (09:10)
[2024-05-03] MEDS: LACTATED RINGERS 1,000 ML IV ONE (10:54)
[2024-05-03] MEDS: ROPIVACAINE 250 MG, HYDROMORPHONE (PF) 5 MG in SODIUM CHLORIDE 0.9% 200 ML EPIDURAL PRN (11:19)
--- NOTE | 2024-05-03 12:16 | P.ANPRN ---
Procedure Note - Anesthesia - Epidural/Spinal Epidural Continuous Date of Procedure: 05/03/24 Location of Patient: PreOp Indication: Acute Post-Operative Pain, Analgesia, Requested by Surgeon Sedation Type: Sedate with meaningful contact maintained Preparation: Sterile Dressing Position: Sitting Catheter: Indwelling Needle Guage: 18 Narrative: The benefits and risks of the procedure was explained to the patient and informed consent was obtained. After proper positioning, T8-T9 Space identified and cleaned with Betadine and iodine solution. 2 mL of 1% lidocaine was thoroughly infiltrated into the above mentioned space after draping the the area. 18-gauge Tuhoy needle was inserted into the space and loss of resistance to air was obtained at 4 cm depth. Next, an epidural catheter was threaded through the needle into this space and negative aspiration for any blood or CSF noted. Test dose was given and no untoward reactions noted. Epidural was secured and taped. Patient tolerated the procedure very well. Blood Aspirated: No Pain Paresthesia on Injection Noted: No Events: Uneventful and Well Tolerated
--- NOTE | 2024-05-03 14:22 | P.OP ---
Date of Procedure: 05/03/24 Preoperative Diagnosis: Left Renal Mass Postoperative Diagnosis: Same Procedure(s) Performed: Left Radical Nephrectomy Anesthesia: GETA, epidural Surgeon: Miky Tripathi Accounting Specialist #1: Zoltan Patino Estimated Blood Loss (ml): 100 IV fluids (ml): 1,400 Pathology: other (Left kidney) Condition: stable Disposition: PACU Indications for Procedure: The patient is a 74 year-old male who presented with bright red blood per rectum as well as gross hematuria in September 2023. He denied dysuria, but did report increased urinary frequency, urinary urgency with occasional urge incontinence, and urinary incontinence without awareness. He denies any prior history of UTIs or urolithiasis. CT scan showed a 2.8 cm left renal mass. Cystoscopy showed evidence of BPH but was otherwise unremarkable. Patient was advised to undergo a left radical nephrectomy, as he was felt to be a poor candidate for cryosurgery or partial nephrectomy, given the location of the tumor. The hematuria resolved despite the fact that he was taking Eliquis for atrial fibrillation. He is currently off Eliquis, and was recently hospitalized due to anemia. His imaging was reviewed by an interventional radiologist, who felt that he was not a candidate for cryosurgery and was also concerned there may be tumor thrombus within a segmental vein. Operative Findings: Left lower pole renal mass. No evidence of extrarenal disease. Description of Procedure: The patient was taken to the operating room and placed in the supine position. After being given general anesthesia, the abdomen was prepped and draped sterilely. A left sided chevron incision was made using the scalpel. The Bovie electrocautery was used to incise the subcutaneous tissues and muscular layers of the abdominal wall down to the peritoneum. The peritoneum was then carefully entered, and opened the full length of the incision. The abdomen was examined, and no abnormalities were noted other than the renal mass. Specifically, there was no evidence of malignancy elsewhere within the abdomen. The Bookwalter retractor was used for exposure. The peritoneum was incised at the line of Toldt, allowing the left hemicolon to be mobilized medially off of Gerota's fascia. This was done until the aorta was exposed anteriorly. The left renal vein was identified at this time. Next, the tissue within the left renal hilum was clipped and divided inferior to the renal vein. There was no evidence of adenopathy. After isolating the left renal vein, the left renal artery was identified cephalad to the vein. The adrenal vein was ligated and divided as it inserted into the left renal vein using 2-0 silk ties. The left renal artery was isolated and ligated using a 2-0 silk tie. The left renal vein was then ligated twice proximally and distally. A suture ligature was placed through the proximal aspect of the vein prior to dividing it. The renal artery was then ligated using 2-0 silk ties, twice proximally and once distally prior to dividing it. The remaining hilar tissues were clipped and divided at this time. Once the hilar dissection had been completed, the inferior aspect of the dissection was performed. The tail of Gerota's fascia was isolated, and both the ureter and gonadal veins were identified. The ureter was clipped, the gonadal vein was ligated, and both were divided. Blunt dissection was then performed to dissect the kidney off of the posterior abdominal wall. Superiorly, the perinephric fat was divided down to the upper pole of the kidney. The remaining dissection was then performed over the superior aspect of the kidney, thus preserving the left adrenal gland. Once all attachments were divided, the specimen was removed. The surgical field was examined for hemostasis, which was confirmed to be excellent. The kidney bed was irrigated with warm sterile water. The Bookwalter retractor was removed. The abdominal contents were allowed to return to their normal location. Each individual muscle layer of the anterior abdominal wall was closed using #1 Vicryl suture in a running fashion. Hemostasis within the subcutaneous tissues was excellent. The skin was closed using vale. A sterile gauze dressing was applied over the incision. All sponge and needle counts were correct. The patient tolerated the procedure well was taken to the recovery room in stable condition.
[2024-05-03] MEDS: DEXTROSE 5%-0.45% NACL 1,000 ML IV SCH (14:58)
[2024-05-03] MEDS: NICOTINE 21MG/24HR PATCH TRANSDERM SCH (18:56)
[2024-05-03] MEDS: HEPARIN SODIUM,PORCINE 5,000 UNIT/ML 1 ML VIAL SQ SCH (20:26)
[2024-05-03] MEDS: clonazePAM 0.5 MG TAB PO SCH (20:26)
--- NOTE | 2024-05-04 08:25 | P.PN ---
Subjective Progress Note Date: 05/04/24 First postoperative day status post left radical nephrectomy. Vital signs are stable afebrile feels relatively well. Urine is clear. Objective - Vital Signs Vital signs: Vital Signs Temp 98.2 F 05/04/24 07:20 Pulse 75 05/04/24 07:20 Resp 18 05/04/24 07:20 BP 117/57 05/04/24 07:20 Pulse Ox 93 L 05/04/24 07:20 FiO2 Intake & Output 05/03/24 05/04/24 05/04/24 18:59 06:59 18:59 Intake Total 2110 Output Total 650 300 Balance 1460 -300 Weight 54 kg Intake: IV 0 Output: Urine 550 300 Estimated Blood Loss 100 Other: Voiding Method Indwelling Catheter - Labs CBC & Chem 7: 05/03/24 07:40 05/03/24 07:40 Labs: Abnormal Lab Results - Last 24 Hours (Table) 05/03/24 Range/Units 07:40 Potassium 3.4 L (3.5-5.1) mmol/L BUN 23 H (9-20) mg/dL Assessment and Plan Assessment: Impression: Postoperative day #1 left radical nephrectomy. Recommendations: We will continue with epidural to decrease the amount as he has some dizziness. Continue with the Napoles until the epidural is out. Advance his diet.
[2024-05-04 10:26] LABS: Basophils # (A) 0.03 X 10*3/uL (0.00-0.10); Basophils % (A) 0.5 %; Eosinophils # (A) 0.01 X 10*3/uL (0.04-0.35); Eosinophils % (A) 0.2 %; HCT 27.9 % (39.6-50.0); HGB 8.3 g/dL (13.0-17.0); Lymphocytes # (A) 0.99 X 10*3/uL (0.90-5.00); Lymphocytes % (A) 17.2 %; MCH 30.7 pg (27.0-32.0); MCHC 29.7 g/dL (32.0-37.0); MCV 103.3 FL (80.0-97.0); Mean Platelet Volume 10.5 FL (9.5-12.2); Monocytes # (A) 0.58 X 10*3/uL (0.20-1.00); Monocytes % (A) 10.1 %; NRBC Per 100 WBC 0 X 10*3/uL (0.00-0.01); Neutrophils # (A) 4.15 X 10*3/uL (1.80-7.70); Neutrophils % (A) 71.8 %; Platelet Count 159 X 10*3/uL (140-440); RDW 18.6 % (11.5-14.5); WBC 5.77 X 10*3/uL (4.50-10.00)
[2024-05-04 10:35] LABS: BUN/Creat Ratio 11.78 Ratio (12.00-20.00); Blood Urea Nitrogen 21.2 mg/dL (9.0-27.0); Calcium 8.1 mg/dL (8.7-10.3); Carbon Dioxide 27.8 mmol/L (21.6-31.8); Chloride 99 mmol/L (96-109); Glucose 266 mg/dL (70-110); Potassium 4.3 mmol/L (3.5-5.5); Sodium 136 mmol/L (135-145)
[2024-05-04] MEDS: ACETAMINOPHEN TAB 325 MG TAB PO PRN (20:07)
--- NOTE | 2024-05-04 20:54 | P.PN ---
Progress Note - Text 05/04/242014 74-year-old male status post right nephrectomy. Patient has an epidural catheter for postop pain control with a solution running at 5 cc an hour with a VAS of 1. No sensory or motor deficit noted patient is ablating well. To continue epidural infusion
--- NOTE | 2024-05-05 10:17 | P.PN ---
Subjective Progress Note Date: 05/05/24 impression:second post op day from a left radical nephrectomy. His pain is well controlled. His vss, His uo is good. His wound looks good. Recommendations: I will discontinue his epidural. I'll place him on oral pain medication. He'll ambulate. The [place]arry will come out in the morning. Objective - Vital Signs Vital signs: Vital Signs Temp 99.5 F 05/05/24 01:10 Pulse 64 05/05/24 01:10 Resp 18 05/05/24 01:10 BP 128/83 05/05/24 01:10 Pulse Ox 100 05/05/24 01:10 FiO2 Intake & Output 05/04/24 05/05/24 05/05/24 18:59 06:59 18:59 Intake Total 23.5 1153 Output Total 2225 Balance 23.5 -1072 Intake: Intake, IV Titration 23.5 913 Amount Dextrose 5%-0.45% NaCl 1, 825 000 ml @ 75 mls/hr IV . [id number] ANCA Rx#:[id number] Ropivacaine 250 mg 23.5 88 Hydromorphone (Pf) 5 mg In Sodium Chloride 0.9% 200 ml @ Per Protocol EPIDURAL .Q0M PRN Rx#: [id number] Oral 240 Output: Urine 2225 Other: Voiding Method Indwelling Catheter Indwelling Catheter # Voids 1 - Labs CBC & Chem 7: 05/04/24 06:07 05/04/24 06:07 Labs: Abnormal Lab Results - Last 24 Hours (Table) 05/04/24 05/04/24 Range/Units 06:07 06:07 RBC 2.70 L (4.40-5.60) X 10*6/uL Hgb 8.3 L (13.0-17.0) g/dL Hct 27.9 L (39.6-50.0) % MCV 103.3 H (80.0-97.0) FL MCHC 29.7 L (32.0-37.0) g/dL RDW 18.6 H (11.5-14.5) % Eosinophils # 0.01 L (0.04-0.35) X 10*3/uL Creatinine 1.8 H (0.6-1.5) mg/dL Est GFR (CKD-EPI) 39 L (>=60) BUN/Creatinine Ratio 11.78 L (12.00-20.00) Ratio Glucose 266 H (70-110) mg/dL Calcium 8.1 L (8.7-10.3) mg/dL Assessment and Plan Assessment: Impression: will d/c the epidural. Start his on oral pain meds. the irizarry catheter can be removed later today.
--- NOTE | 2024-05-05 15:53 | P.PN ---
Progress Note - Text 05/05/24 1524 74-year-old male status post right nephrectomy. Patient seen and evaluated for postop pain control, patient's epidural had been DC'd as per the surgeon. Patient doing well VAS of 2 no motor or sensory deficit noted
[2024-05-05] MEDS: HYDROcodone/APAP 5-325MG 1 EACH TAB PO PRN (22:57)
[2024-05-06 05:11] LABS: Glucose,Whole Blood 100 mg/dL (70-110)
[2024-05-06 07:53] VITALS: RESP 16
--- NOTE | 2024-05-06 10:26 | P.DS ---
Providers Date of admission: 05/03/24 06:46 Attending physician: Miky Tripathi Primary care physician: [facility] Course: the patient was admitted to the hospital for left radical nephrectomy 05/03. He has done well postoperatively. The epidural control his pain is been removed. He is eating and ambulating. He is passing gas. His abdomen is soft. Wound looks good. I'll remove his Napoles. If he voids well he'll be discharged home. He'll be given a prescription of Vernon. He'll follow in the office in one week. Condition is good. Patient Condition at Discharge: Good Plan - Discharge Summary Discharge Rx Participant: Yes New Discharge Prescriptions: New HYDROcodone/APAP 5-325MG [Vernon 5-325] 1 tab PO Q4HR PRN #14 tab PRN Reason: Pain No Action Citalopram Hydrobromide [CeleXA] 20 mg PO QAM Cholecalciferol [Vitamin D3 (25 Mcg = 1000 Iu)] 50 mcg PO W/LUNCH Acetaminophen Tab [Tylenol] 650 mg PO Q4HR PRN tab PRN Reason: Fever and/ or Mild Pain Metoprolol Tartrate [Lopressor] 12.5 mg PO BID Aspirin EC [Ecotrin Low Dose] 81 mg PO DAILY Potassium Chloride [Klor-Con M20] 20 meq PO QAM clonazePAM [KlonoPIN] 0.5 mg PO HS Atorvastatin [Lipitor] 20 mg PO HS Ferrous Sulfate [Iron (65 MG Elemental)] 650 mg PO W/LUNCH Lactulose 10 - 20 gm PO BID PRN PRN Reason: Constipation metOLazone [Zaroxolyn] 2.5 mg PO MOFR Ascorbic Acid [Vitamin C] 500 mg PO DAILY Furosemide [Lasix] 40 mg PO QAM Pantoprazole Sodium [Protonix] 40 mg PO QAM Discharge Medication List Citalopram Hydrobromide [CeleXA] 20 mg PO QAM 03/07/18 [History] Cholecalciferol [Vitamin D3 (25 Mcg = 1000 Iu)] 50 mcg PO W/LUNCH 12/11/21 [History] Acetaminophen Tab [Tylenol] 650 mg PO Q4HR PRN tab 08/08/23 [Rx] clonazePAM [KlonoPIN] 0.5 mg PO HS 08/29/23 [History] Atorvastatin [Lipitor] 20 mg PO HS 09/14/23 [History] Ferrous Sulfate [Iron (65 MG Elemental)] 650 mg PO W/LUNCH 10/10/23 [History] Metoprolol Tartrate [Lopressor] 12.5 mg PO BID 10/10/23 [History] Aspirin EC [Ecotrin Low Dose] 81 mg PO DAILY 04/06/24 [History] Lactulose 10 - 20 gm PO BID PRN 04/06/24 [History] metOLazone [Zaroxolyn] 2.5 mg PO MOFR 04/06/24 [History] Ascorbic Acid [Vitamin C] 500 mg PO DAILY 05/01/24 [History] Furosemide [Lasix] 40 mg PO QAM 05/01/24 [History] Pantoprazole Sodium [Protonix] 40 mg PO QAM 05/01/24 [History] Potassium Chloride [Klor-Con M20] 20 meq PO QAM 05/01/24 [History] HYDROcodone/APAP 5-325MG [Vernon 5-325] 1 tab PO Q4HR PRN #14 tab 05/06/24 [Rx] Follow up Appointment(s)/Referral(s): Miky Tripathi MD [STAFF PHYSICIAN] - 1 Week Discharge Disposition: HOME SELF-CARE
[2024-05-06 14:03] VITALS: BP 147/68; PULSE 84; TEMP 97.6
--- NOTE | 2024-05-09 11:13 | CDI ---
Documentation Clarification Form Date: 05/09/2024 10:50:59 AM From: Kat Casas RN, CCDS Phone: [phone] Admit Date: 05/03/2024 06:46:00 AM Patient Name: Francisco Lucio Visit Number: [id number] Discharge Date: 05/06/2024 03:17:00 PM ATTENTION: The Clinical Documentation Specialists (CDI) and [facility] Coding Staff appreciate your assistance in clarifying documentation. Please respond to the clarification below the line at the bottom and electronically sign. The CDI & [facility] Coding staff will review the response and follow-up if needed. Please note: Queries are made part of the Legal Health Record. If you have any questions, please contact the author of this message via ITS. Dr. Sebastien Mijares The patient had a hemoglobin/hematocrit level of 8.3/27.9 on 05/04. Please clarify if there is an additional diagnosis and/or clinical significance related to these lab values. History/Risk Factors: A fib, recently on Eliquis, CAD and hematuria September 2023. Recent admission for anemia where he received 3 units of blood. Presented for elective left radical nephrectomy due to kidney mass. Clinical indicators: 05/02 H&P: "Reports hematuria. History of left kidney mass spread to vein. Recent admission for progressive weakness, sob, peripheral edema and anemia-received 3 units pRBCs on 04-06-24 and 04-07-24." 05/03 Op note: Left Renal Mass. S/P Left Radical Nephrectomy. 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
--- NOTE | 2024-05-14 10:01 | CDI ---
Documentation Clarification Form Date: 05/09/2024 10:50:00 AM From: Kat Casas RN, CCDS Phone: [phone] Admit Date: 05/03/2024 06:46:00 AM Patient Name: Francisco Lucio Visit Number: [id number] Discharge Date: 05/06/2024 03:17:00 PM ATTENTION: The Clinical Documentation Specialists (CDI) and [facility] Coding Staff appreciate your assistance in clarifying documentation. Please respond to the clarification below the line at the bottom and electronically sign. The CDI & [facility] Coding staff will review the response and follow-up if needed. Please note: Queries are made part of the Legal Health Record. If you have any questions, please contact the author of this message via ITS. Dr. Miky Tripathi The patient had a hemoglobin/hematocrit level of 8.3/27.9 on 05/04. Please clarify if there is an additional diagnosis and/or clinical significance related to these lab values. History/Risk Factors: A fib, recently on Eliquis, CAD and hematuria September 2023. Recent admission for anemia where he received 3 units of blood. Presented for elective left radical nephrectomy due to kidney mass. Clinical indicators: 05/02 H&P: "Reports hematuria. History of left kidney mass spread to vein. Recent admission for progressive weakness, sob, peripheral edema and anemia-received 3 units pRBCs on 04-06-24 and 04-07-24." 05/03 Op note: Left Renal Mass. S/P Left Radical Nephrectomy. 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
== END 2024-05-06 15:17 | disposition home or self-care (01) | DRG 657 ==
LOC: 2ORMAIN 06:46 → 4SSUR 13:55
PROVIDERS: ADMIT Urology; ATTEND Urology
PROC: 0TT10ZZ Resection of Left Kidney, Open Approach (ICD-10-PCS; principal; 2024-05-03 08:20)
DX: D49.512 Neoplasm of unspecified behavior of left kidney (principal); D62 Acute posthemorrhagic anemia; I48.91 Unspecified atrial fibrillation; E78.5 Hyperlipidemia, unspecified; I25.10 Atherosclerotic heart disease of native coronary artery without angina pectoris; K21.9 Gastro-esophageal reflux disease without esophagitis; I10 Essential (primary) hypertension; Z79.82 Long term (current) use of aspirin; N40.1 Benign prostatic hyperplasia with lower urinary tract symptoms; N39.41 Urge incontinence; F17.210 Nicotine dependence, cigarettes, uncomplicated; Z79.899 Other long term (current) drug therapy; D64.9 Anemia, unspecified; Z95.1 Presence of aortocoronary bypass graft; Z82.49 Family history of ischemic heart disease and other diseases of the circulatory system; I34.0 Nonrheumatic mitral (valve) insufficiency
CPT/HCPCS: 80048; 85025; 85610; 86850; 86900; 86901; 88307

== ENCOUNTER 2025-01-14 12:20 | Inpatient (IN) | payer MEDICARE ==
--- NOTE | 2025-01-14 13:58 | ED ---
Recheck HPI - General Source: patient, RN notes reviewed, old records reviewed Mode of arrival: ambulatory Limitations: no limitations <Mounika Greenberg - Last Filed: 01/14/25 14:23> <Marie Hawk - Last Filed: 01/14/25 22:09> - General Chief Complaint: Recheck/Abnormal Lab/Rx Stated Complaint: chest wound leaking Time Seen by Provider: 01/14/25 13:58 - History of Present Illness Initial Comments: Patient is a 75-year-old male presenting to the ER for evaluation of a chest wound. Patient underwent coronary artery bypass with Dr. Giordano in July 2023. Patient reports for the past 3 to 4 months he has had a wound noted to his lower sternum. Patient was admitted here for on 01-07-2025 for CHF exacerbation. Wound at that time appeared to be a boil per admission charts and was popped with cultures obtained. Patient was on Keflex while admitted. Patient left AMA on 01-07-2025. Patient has not been on antibiotics since admission. Patient was seen by PCP today who instructed him to come to the ER for further wound evaluation. He does state wound will drain bloody infectious appearing material. Patient denies any fevers, chills, body aches, chest pain, shortness of breath or other complaints at this time. (Mounika Greenberg) - Related Data Home Medications Medication Instructions Recorded Confirmed Citalopram Hydrobromide [CeleXA] 20 mg PO DAILY 03/07/18 01/14/25 Cholecalciferol [Vitamin D3 (25 50 mcg PO W/LUNCH 12/11/21 01/14/25 Mcg = 1000 Iu)] clonazePAM [KlonoPIN] 0.5 mg PO HS 08/29/23 01/14/25 Atorvastatin [Lipitor] 20 mg PO HS 09/14/23 01/14/25 Ferrous Sulfate [Iron (65 MG 650 mg PO W/LUNCH 10/10/23 01/14/25 Elemental)] Metoprolol Tartrate [Lopressor] 12.5 mg PO BID 10/10/23 01/14/25 Aspirin EC [Ecotrin Low Dose] 81 mg PO DAILY 04/06/24 01/14/25 Lactulose 10 gm PO BID 04/06/24 01/14/25 metOLazone [Zaroxolyn] 2.5 mg PO MOWEFR 04/06/24 01/14/25 Ascorbic Acid [Vitamin C] 500 mg PO DAILY 05/01/24 01/14/25 Furosemide [Lasix] 40 mg PO DAILY 05/01/24 01/14/25 Pantoprazole Sodium [Protonix] 40 mg PO DAILY 05/01/24 01/14/25 Potassium Chloride [Klor-Con M20] 20 meq PO DAILY 05/01/24 01/14/25 Cyproheptadine [Cyproheptadine HCl] 2 mg PO TID PRN 01/06/25 01/14/25 Linaclotide [Linzess] 72 mcg PO DAILY 01/06/25 01/14/25 Previous Rx's Medication Instructions Recorded Acetaminophen Tab [Tylenol] 650 mg PO Q4HR PRN tab 08/08/23 Allergies Allergy/AdvReac Type Severity Reaction Status Date / Time No Known Allergies Allergy Verified 01/14/25 17:10 Review of Systems ROS Other: All systems not noted in ROS Statement are negative. <Mounika Greenberg - Last Filed: 01/14/25 14:23> ROS Other: All systems not noted in ROS Statement are negative. <Marie Hawk - Last Filed: 01/14/25 22:09> ROS Statement: Those systems with pertinent positive or pertinent negative responses have been documented in the HPI. Past Medical History Past Medical History: Atrial Fibrillation, Coronary Artery Disease (CAD), GERD/Reflux, Hyperlipidemia, Hypertension, Renal Disease Additional Past Medical History / Comment(s): Mitral regurgitation; abdominal aortic aneurysm History of Any Multi-Drug Resistant Organisms: MRSA Date of last positivie culture/infection: 01/06/25 MDRO Source:: chest Past Surgical History: Coronary Bypass/CABG, Heart Catheterization, Hernia Repair Additional Past Surgical History / Comment(s): three-vessel CABG with mitral valve repair 07/27/2023 Past Anesthesia/Blood Transfusion Reactions: No Reported Reaction Additional Past Anesthesia/Blood Transfusion Reaction / Comment(s): no problems with prior blood transfusions last transfused 04-06-24/04-07-24 (total 3 units) Type of Cardiac Device: Permanent Pacemaker Device Placement Date:: 08/03/2023 [employer] Past Psychological History: Depression Smoking Status: Current every day smoker Past Alcohol Use History: None Reported Past Drug Use History: None Reported - Past Family History Father Family Medical History: Myocardial Infarction ([place]) Additional Family Medical History / Comment(s): at age 90 from a myocardial infarction <Mounika Greenberg - Last Filed: 01/14/25 14:23> General Exam Limitations: no limitations General appearance: alert, in no apparent distress Respiratory exam: Present: normal lung sounds bilaterally. Absent: respiratory distress, wheezes, rales, rhonchi, stridor Cardiovascular Exam: Present: regular rate, normal rhythm, normal heart sounds. Absent: systolic murmur, diastolic murmur, rubs, gallop, clicks Extremities exam: Present: normal inspection, full ROM, normal capillary refill. Absent: tenderness, pedal edema, joint swelling, calf tenderness Neurological exam: Present: alert, oriented X3, CN II-XII intact Skin exam: Present: warm, dry, intact, normal color, other (1.5 cm wound to lower sternum granulation tissue present. No surrounding erythema or purulent drainage present.) <Mounika Greenberg - Last Filed: 01/14/25 14:23> Limitations: no limitations General appearance: alert, in no apparent distress <Marie Hawk - Last Filed: 01/14/25 22:09> Course Vital Signs 01/14/25 01/14/25 01/14/25 12:22 15:23 18:09 Temperature 97.5 F L Pulse Rate 80 66 60 Respiratory 20 18 18 Rate Blood Pressure 124/70 117/64 117/58 O2 Sat by Pulse 98 97 100 Oximetry 01/14/25 01/14/25 20:26 20:49 Temperature Pulse Rate 75 Respiratory 18 16 Rate Blood Pressure 143/75 O2 Sat by Pulse 97 Oximetry Medical Decision Making <Mounika Greenberg - Last Filed: 01/14/25 14:23> - Lab Data Result diagrams: 01/14/25 15:10 01/14/25 15:10 - Radiology Data Radiology results: report reviewed, image reviewed <Marie Hawk - Last Filed: 01/14/25 22:09> - Medical Decision Making Was pt. sent in by a medical professional or institution (, PA, PULLER MACHINE, urgent care, hospital, or senior living...) When possible be specific @ -Patient sent by PCP for evaluation of chest wound. Did you speak to anyone other than the patient for history (EMS, parent, family, police, friend...)? What history was obtained from this source @ -No Did you review nursing and triage notes (agree or disagree)? Why? @ -I reviewed and agree with nursing and triage notes Were old charts reviewed (outside hosp., previous admission, EMS record, old EKG, old radiological studies, urgent care reports/EKG's, senior living records)? Report findings @ -[Yes, I reviewed old charts. Admission from 01-06-2025 wound cultures obtained and growing MRSA. Patient left AGAINST MEDICAL ADVICE. Patient was on Keflex while inpatient. Differential Diagnosis (chest pain, altered mental status, abdominal pain women, abdominal pain men, vaginal bleeding, weakness, fever, dyspnea, syncope, headache, dizziness, GI bleed, back pain, seizure, CVA, palpatations, mental health, musculoskeletal)? @ -Wound, sepsis, laceration... This list is not meant to be all-inclusive EKG interpreted by me (3pts min.). @ -None done X-rays interpreted by me (1pt min.). @ -None done CT interpreted by me (1pt min.). @ -None done U/S interpreted by me (1pt. min.). @ -None done What testing was considered but not performed or refused? (CT, X-rays, U/S, labs)? Why? @ -None What meds were considered but not given or refused? Why? @ -None Did you discuss the management of the patient with other professionals (professionals i.e. , PA, PULLER MACHINE, lab, RT, psych nurse, social services manager, academic tutor, teacher, giving officer, transplant case manager)? Give summary @ -No Was smoking cessation discussed for >3mins.? @ -No Was critical care preformed (if so, how long)? @ -No Were there social determinants of health that impacted care today? How? (Homelessness, low income, unemployed, alcoholism, drug addiction, transp ortation, low edu. Level, literacy, decrease access to med. care, custodial, rehab)? @ -No Was there de-escalation of care discussed even if they declined (Discuss DNR or withdrawal of care, Hospice)? DNR status @ -No What co-morbidities impacted this encounter? (DM, HTN, Smoking, COPD, CAD, Cancer, CVA, ARF, Chemo, Hep., AIDS, mental health diagnosis, sleep apnea, morbid obesity)? @ -History of CABG 2022 Was patient admitted / discharged? Hospital course, mention meds given and route, prescriptions, significant lab abnormalities, going to OR and other pertinent info. @ -[75-year-old male presented to the ER for evaluation of chest wall wound. Vitals within acceptable limits. Exam remarkable for a 1.5 cm wound to lower sternum. Infectious workup will be obtained. Patient signed out to Marie Hawk PA-C pending laboratory results and disposition. (Mounika Greenberg) Case signed out to me by Mounika Greenberg PA-C, at shift completion. Laboratory workup reveals decreased kidney function, however this is similar when compared with prior. Chest x-ray revealed a mild lingular infiltrate suggestive of atelectasis. He did have an open wound to the bottom portion of his sternal incision with what appeared to be granulation tissue present. Given the location of this wound with culture returning positive for MRSA, he was admitted to medicine for further management. He was started on vancomycin which was shown to be effective based on culture results from 01/06. Consult placed for cardiothoracic surgery and infectious disease. Case discussed with ED attending Dr. Osei. (Marie Hawk) - Lab Data Lab Results 01/14/25 01/14/25 01/14/25 Range/Units 15:10 15:10 15:10 WBC 6.3 (3.8-10.6) k/uL RBC 3.50 L (4.30-5.90) m/uL Hgb 11.1 L (13.0-17.5) gm/dL Hct 35.6 L (39.0-53.0) % MCV 101.7 H (80.0-100.0) fL MCH 31.8 (25.0-35.0) pg MCHC 31.2 (31.0-37.0) g/dL RDW 13.5 (11.5-15.5) % Plt Count 278 (150-450) k/uL MPV 7.4 Neutrophils % 82 % Lymphocytes % 10 % Monocytes % 5 % Eosinophils % 1 % Basophils % 1 % Neutrophils # 5.2 (1.3-7.7) k/uL Lymphocytes # 0.6 L (1.0-4.8) k/uL Monocytes # 0.3 (0-1.0) k/uL Eosinophils # 0.1 (0-0.7) k/uL Basophils # 0.0 (0-0.2) k/uL Macrocytosis Slight Sodium 137 (137-145) mmol/L Potassium 3.7 (3.5-5.1) mmol/L Chloride 99 (98-107) mmol/L Carbon Dioxide 31 H (22-30) mmol/L Anion Gap 7 mmol/L BUN 38 H (9-20) mg/dL Creatinine 1.60 H (0.66-1.25) mg/dL Est GFR (CKD-EPI)AfAm 48 (>60 ml/min/1.73 sqM) Est GFR (CKD-EPI)NonAf 41 (>60 ml/min/1.73 sqM) Glucose 100 H (74-99) mg/dL Plasma Lactic Acid Stephane 1.2 (0.7-2.0) mmol/L Calcium 9.2 (8.4-10.2) mg/dL Total Bilirubin 0.4 (0.2-1.3) mg/dL AST 21 (17-59) U/L ALT 19 (4-49) U/L Alkaline Phosphatase 116 (38-126) U/L Total Protein 6.9 (6.3-8.2) g/dL Albumin 3.5 (3.5-5.0) g/dL Disposition <Mounika Greenberg - Last Filed: 01/14/25 14:23> <Marie Hawk - Last Filed: 01/14/25 22:09> Clinical Impression: Wound dehiscence, surgical, MRSA (methicillin resistant Staphylococcus aureus) infection Disposition: ADMITTED IP TO THIS HOSP
[2025-01-14 15:18] LABS: Basophils % (A) 1 %; Eosinophils # (A) 0.1 k/uL (0-0.7); Eosinophils % (A) 1 %; HCT 35.6 % (39.0-53.0); HGB 11.1 gm/dL (13.0-17.5); Lymphocytes # (A) 0.6 k/uL (1.0-4.8); Lymphocytes % (A) 10 %; MCH 31.8 pg (25.0-35.0); MCHC 31.2 g/dL (31.0-37.0); MCV 101.7 fL (80.0-100.0); Macrocytosis Slight; Mean Platelet Volume 7.4; Monocytes # (A) 0.3 k/uL (0-1.0); Monocytes % (A) 5 %; Neutrophils # (A) 5.2 k/uL (1.3-7.7); Neutrophils % (A) 82 %; Platelet Count 278 k/uL (150-450); RDW 13.5 % (11.5-15.5); WBC 6.3 k/uL (3.8-10.6)
--- NOTE | 2025-01-14 15:21 | XR ---
EXAMINATION TYPE: XR chest 2V DATE OF EXAM: 01/14/2025 2:57 PM COMPARISON: 01/05/2025 CLINICAL INDICATION: Male, 75 years old with history of sternal wound, TECHNIQUE: XR chest 2V view(s) obtained. FINDINGS: The heart size is normal. The pulmonary vasculature is normal. There is a small left pleural effusion. Pacemaker overlies left chest. Sternotomy wires are present. Minimal lingular scattered infiltrates may be present. Correlate for atelectasis. Mild pneumonia coul d be considered. There is hyperinflation and flattening of the diaphragms compatible with COPD No suspicious changes along the patient's reported sternal wound. No retrosternal density identified. . IMPRESSION: 1. Mild lingular infiltrate. Correlate for atelectasis. 2. Small pleural effusion. 3. No obvious changes associated with patient's reported sternal wound. CT can be performed as clinic ally indicated. [facility], , 01/14/2025 3:18 PM
[2025-01-14 15:27] LABS: ALT 19 U/L (4-49); AST 21 U/L (17-59); African American GFR (CKD) 48 (>60 ml/min/1.73 sqM); Albumin 3.5 g/dL (3.5-5.0); Alkaline Phosphatase 116 U/L (38-126); Anion Gap 7 mmol/L; Blood Urea Nitrogen 38 mg/dL (9-20); Calcium 9.2 mg/dL (8.4-10.2); Carbon Dioxide 31 mmol/L (22-30); Chloride 99 mmol/L (98-107); Glucose 100 mg/dL (74-99); Non-African American GFR(CKD) 41 (>60 ml/min/1.73 sqM); Potassium 3.7 mmol/L (3.5-5.1); Sodium 137 mmol/L (137-145); Total Bilirubin 0.4 mg/dL (0.2-1.3); Total Protein 6.9 g/dL (6.3-8.2)
[2025-01-14] MEDS ORDERED: VANCOMYCIN IV PER PHARMACY 1 EACH MISC MISCELLANE PRN (16:31)
[2025-01-14] MEDS ORDERED: ONDANSETRON 4 MG/2 ML VIAL IVP PRN (16:38)
[2025-01-14] MEDS ORDERED: NALOXONE 0.4 MG/ML 1 ML VIAL IV PRN (16:38)
[2025-01-14] MEDS ORDERED: ACETAMINOPHEN TAB 325 MG TAB PO PRN ×2 (16:38→17:10)
[2025-01-14] MEDS ORDERED: CYPROHEPTADINE 4 MG TABLET PO PRN (17:10)
[2025-01-14] MEDS: VANCOMYCIN 750 MG in SODIUM CHLORIDE 0.9% 250 ML IVPB ONE (18:05)
[2025-01-14] MEDS: MORPHINE SULFATE 4 MG/ML SYRINGE IV PRN (18:10)
[2025-01-14] MEDS: METOPROLOL TARTRATE 12.5 MG TAB PO SCH (20:28)
[2025-01-14] MEDS: metOLazone 2.5 MG TAB PO SCH (20:28)
[2025-01-14] MEDS: clonazePAM 0.5 MG TAB PO SCH (20:28)
[2025-01-14] MEDS: LACTULOSE 20 GM/30 ML CUP PO SCH (20:28)
[2025-01-14] MEDS: ATORVASTATIN 20 MG TAB PO SCH (20:28)
[2025-01-15] MEDS: HYDROcodone/APAP 5-325MG 1 EACH TAB PO PRN (03:47)
[2025-01-15 04:15] LABS: African American GFR (CKD) 51 (>60 ml/min/1.73 sqM); Non-African American GFR(CKD) 44 (>60 ml/min/1.73 sqM)
[2025-01-15] MEDS: PANTOPRAZOLE 40 MG TABLET PO SCH (06:26)
[2025-01-15] MEDS: CITALOPRAM HYDROBROMIDE 20 MG TAB PO SCH (08:33)
[2025-01-15] MEDS: ASPIRIN 81 MG PO SCH (08:33)
[2025-01-15] MEDS: POTASSIUM CHLORIDE ER 20 MEQ TAB.ER PO SCH (08:33)
[2025-01-15] MEDS: FUROSEMIDE 40 MG TAB PO SCH (08:33)
[2025-01-15] MEDS: ASCORBIC ACID 500 MG TAB PO SCH (08:33)
[2025-01-15] MEDS: LINZESS 72 MCG PO SCH (08:37)
[2025-01-15] MEDS ORDERED: PANTOPRAZOLE 40 MG/10 ML VIAL IV SCH (09:00)
[2025-01-15] MEDS: VANCOMYCIN 750 MG in SODIUM CHLORIDE 0.9% 250 ML IVPB ONE (10:35)
--- NOTE | 2025-01-15 10:37 | P.HPIM ---
History of Present Illness This is a pleasant 75 years old male with history of nicotine dependence, still smoking and CHF. Patient came to the hospital about 8 days ago for chest pain found to have lower sternal wound, culture sent showing MRSA however patient signed AMA. He went to see his PCP Dr. Holloway yesterday for follow-up appointment still complaining from chest pain. He referred him to the hospital Patient denies any GI/ symptoms. He still feels little short of breath and due to coughing. No headache dizziness. No limb weakness or tingling His MAC 1 pack/day and he was counseled to quit and he is not sure but he agrees to the nicotine patch. He declines alcohol or illicit drugs. Vital stable and afebrile except for mild bradycardia which is asymptomatic. Labs are unremarkable with WBC 10.5 and 6.3, hemoglobin stable at 11.1. Creatinine chronically elevated 1.6-1.5 which looks like baseline since last year although it fluctuates times 1.01.2 Review of Systems Review of systems CONSTITUTIONAL: No fever, no malaise, no fatigue. HEENT: No recent visual problems or hearing problems. Denied any sore throat. CARDIOVASCULAR: No orthopnea, PND, no palpitations, no syncope. PULMONARY: No shortness of breath, no cough, no hemoptysis. GASTROINTESTINAL: No diarrhea, no nausea, no vomiting, no abdominal pain. Normoactive bowel sounds. NEUROLOGICAL: No headaches, no weakness, no numbness. HEMATOLOGICAL: Denies any bleeding or petechiae. GENITOURINARY: Denies any burning micturition, frequency, or urgency. MUSCULOSKELETAL/RHEUMATOLOGICAL: Denies any joint pain, swelling, or any muscle pain. ENDOCRINE: Denies any polyuria or polydipsia. Past Medical History Past Medical History: Atrial Fibrillation, Coronary Artery Disease (CAD), GERD/Reflux, Hyperlipidemia, Hypertension, Renal Disease Additional Past Medical History / Comment(s): Mitral regurgitation; abdominal aortic aneurysm History of Any Multi-Drug Resistant Organisms: MRSA Date of last positivie culture/infection: 01/06/25 MDRO Source:: chest Past Surgical History: Coronary Bypass/CABG, Heart Catheterization, Hernia Repair Additional Past Surgical History / Comment(s): three-vessel CABG with mitral valve repair 07/27/2023 Past Anesthesia/Blood Transfusion Reactions: No Reported Reaction Additional Past Anesthesia/Blood Transfusion Reaction / Comment(s): no problems with prior blood transfusions last transfused 04-06-24/04-07-24 (total 3 units) Type of Cardiac Device: Permanent Pacemaker Device Placement Date:: 08/03/2023 [employer] Past Psychological History: Depression Smoking Status: Current every day smoker Past Alcohol Use History: None Reported Additional Past Alcohol Use History / Comment(s): STARTED SMOKING AT AGE 15 QUIT ON AND OFF AND CURRENTLY SMOKING , SMOKES 1 PPD Past Drug Use History: None Reported - Past Family History Father Family Medical History: Myocardial Infarction ([place]) Additional Family Medical History / Comment(s): at age 90 from a myocardial infarction Medications and Allergies Home Medications Medication Instructions Recorded Confirmed Type Citalopram Hydrobromide [CeleXA] 20 mg PO DAILY 03/07/18 01/14/25 History Cholecalciferol [Vitamin D3 (25 50 mcg PO W/LUNCH 12/11/21 01/14/25 History Mcg = 1000 Iu)] Acetaminophen Tab [Tylenol] 650 mg PO Q4HR PRN tab 08/08/23 01/14/25 Rx clonazePAM [KlonoPIN] 0.5 mg PO HS 08/29/23 01/14/25 History Atorvastatin [Lipitor] 20 mg PO HS 09/14/23 01/14/25 History Ferrous Sulfate [Iron (65 MG 650 mg PO W/LUNCH 10/10/23 01/14/25 History Elemental)] Metoprolol Tartrate [Lopressor] 12.5 mg PO BID 10/10/23 01/14/25 History Aspirin EC [Ecotrin Low Dose] 81 mg PO DAILY 04/06/24 01/14/25 History Lactulose 10 gm PO BID 04/06/24 01/14/25 History metOLazone [Zaroxolyn] 2.5 mg PO MOWEFR 04/06/24 01/14/25 History Ascorbic Acid [Vitamin C] 500 mg PO DAILY 05/01/24 01/14/25 History Furosemide [Lasix] 40 mg PO DAILY 05/01/24 01/14/25 History Pantoprazole Sodium [Protonix] 40 mg PO DAILY 05/01/24 01/14/25 History Potassium Chloride [Klor-Con M20] 20 meq PO DAILY 05/01/24 01/14/25 History Cyproheptadine [Cyproheptadine HCl] 2 mg PO TID PRN 01/06/25 01/14/25 History Linaclotide [Linzess] 72 mcg PO DAILY 01/06/25 01/14/25 History Allergies Allergy/AdvReac Type Severity Reaction Status Date / Time No Known Allergies Allergy Verified 01/14/25 17:10 Physical Exam Vitals: Vital Signs Temp Pulse Pulse Resp BP BP Pulse Ox 01/15/25 08:31 62 111/65 01/15/25 07:18 98.5 F 56 L 17 112/59 99 01/15/25 01:33 99.2 F 60 17 118/56 96 01/15/25 00:30 53 L 16 01/14/25 21:53 98.1 F 53 L 150/72 99 01/14/25 20:49 16 01/14/25 20:26 75 18 143/75 97 01/14/25 18:09 60 18 117/58 100 01/14/25 15:23 66 18 117/64 97 01/14/25 12:22 97.5 F L 80 20 124/70 98 Intake and Output 01/14/25 01/15/25 01/15/25 22:59 06:59 14:59 Other: Voiding Method Toilet # Voids 3 Weight 47.627 kg GENERAL: The patient is alert and oriented x3, not in any acute distress. Well developed, well nourished. HEENT: Pupils are round and equally reacting to light. EOMI. No scleral icterus. No conjunctival pallor. Normocephalic, atraumatic. No pharyngeal erythema. No thyromegaly. -CARDIOVASCULAR: S1 and S2 present. No murmurs, rubs, or gallops. Lower sternal wound with some purulent discharge on the dressing, no significant surrounding cellulitis PULMONARY: Chest is clear to auscultation, no wheezing , no crackles. ABDOMEN: Soft, nontender, nondistended, normoactive bowel sounds. No palpable organomegaly. MUSCULOSKELETAL: No joint swelling or deformity. EXTREMITIES: No cyanosis, clubbing, or pedal edema. NEUROLOGICAL: Gross neurological examination did not reveal any focal deficits. SKIN: No rashes. no petechiae. Results CBC & Chem 7: 01/14/25 15:10 01/15/25 03:16 Labs: Abnormal Lab Results - Last 24 Hours (Table) 01/14/25 01/14/25 01/15/25 Range/Units 15:10 15:10 03:16 RBC 3.50 L (4.30-5.90) m/uL Hgb 11.1 L (13.0-17.5) gm/dL Hct 35.6 L (39.0-53.0) % MCV 101.7 H (80.0-100.0) fL Lymphocytes # 0.6 L (1.0-4.8) k/uL Carbon Dioxide 31 H (22-30) mmol/L BUN 38 H (9-20) mg/dL Creatinine 1.60 H 1.52 H (0.66-1.25) mg/dL Glucose 100 H (74-99) mg/dL Thrombosis Risk Factor Assmnt - Choose All That Apply Each Risk Factor Represents 2 Points: Age 61-74 years Thrombosis Risk Factor Assessment Total Risk Factor Score: 2 Thrombosis Risk Factor Assessment Level: Low Risk Assessment and Plan Assessment: Lower sternal wound infection secondary to MRSA Recent history of CABG in reference to his coronary artery disease. Rule out infection Nicotine dependence Exertional dyspnea and coughing related to acute CHF exacerbation Diabetes mellitus Hypertension Hyperlipidemia History of GERD Chronic kidney disease CAD status post three-vessel CABG in 2022 Plan: Continue with IV vancomycin, risk of nephrotoxicity explained for the patient Infectious disease consult Cardiothoracic surgery team consult Monitor creatinine Labs and medication were reviewed.. Continue same treatment. Continue with symptomatic treatment. Resume home medication. Monitor labs and vitals. DVT and GI prophylaxis. Further recommendations as per clinical course of the patient DVT prophylaxis: Subcutaneous heparin GI Prophylaxis: ppi PT/OT: Pending Prognosis is guarded
--- NOTE | 2025-01-15 10:43 | P.GSCN ---
History of Present Illness Consult date: 01/15/25 Reason for Consult: Sternal surgical incision wound Requesting physician: Marie Hawk History of present illness: This is a 75-year-old gentleman who follows with Dr. Holloway for his primary care and with Dr. Higuera for his cardiology care. He has a past medical history significant for severe diffuse calcific triple-vessel coronary artery disease, status post three-vessel coronary artery bypass grafting surgery in July 2023, severe mitral valve regurgitation with prolapse of P2 with ruptured chordae, status post complex mitral valve repair using a 34 mm annular flex ring in July 2023, moderate tricuspid valve regurgitation with severe pulmonary hypertension, status post tricuspid valve repair in July 2023, paroxysmal atrial fibrillation, bradycardia with sick sinus syndrome, status post Medtronic permanent pacemaker placement in July 2023, hypertension, hyperlipidemia, abdominal aortic aneurysm with calcification of the posterior aspect of the ascending aorta, chronic ongoing tobacco dependence, moderate restrictive lung disease, GERD, and depression. The patient reports that he presented to the emergency department here at [facility] yesterday afternoon with complaints of a pimple-like wound to his lower sternum which has been present for the last 3 to 4 months. The patient reports he has been doctoring it at home with Neosporin. He states that the wound appeared to be getting better but since the beginning of December has festered with purulent colored drainage. He presented to the hospital on January 05, 2024 with similar complaints and subsequently a wound culture was obtained which showed positive for MRSA. According to the patient's chart the patient left AGAINST MEDICAL ADVICE at that time. He denies any recent fever, chills, nausea, vomiting, diarrhea, constipation, body aches, shortness of breath, chest pain/pressure, headache, hematemesis, hemoptysis, presyncope or syncope. Initial laboratory results showed a WBC count of 6.3, hemoglobin 11.1, hematocrit 35.6, platelets 278, sodium 137, potassium 3.7, chloride 99, CO2 31, BUN 38, creatinine 1.60, glucose 100, AST 21, ALT 19, and albumin 3.5. A chest x-ray was completed which showed mild lingular infiltrate, correlate for atelectasis, small pleural effusion, and no obvious changes associated with the patient's reported sternal wound. Subsequently due to the patient's presenting symptoms, and recent wound culture showing positive for MRSA the patient was admitted for further evaluation and treatment recommendations. A consult was placed to Dr. Pura Mcintosh from cardiothoracic surgery for further evaluation and treatment recommendations. Review of Systems A review of systems was completed and was negative except as mentioned in the HP I. Past Medical History Past Medical History: Atrial Fibrillation, Coronary Artery Disease (CAD), Chest Pain / Angina, GERD/Reflux, Hyperlipidemia, Hypertension, Renal Disease Additional Past Medical History / Comment(s): Mitral regurgitation; abdominal aortic aneurysm History of Any Multi-Drug Resistant Organisms: MRSA Year Discovered:: 01/06/25 MDRO Source:: chest Past Surgical History: Coronary Bypass/CABG, Heart Catheterization, Hernia Repair Additional Past Surgical History / Comment(s): three-vessel CABG with mitral valve and tricuspid valve repair 07/27/2023 Past Anesthesia/Blood Transfusion Reactions: No Reported Reaction Additional Past Anesthesia/Blood Transfusion Reaction / Comm: no problems with prior blood transfusions last transfused 04-06-24/04-07-24 (total 3 units) Type of Cardiac Device: Permanent Pacemaker Device Placement Date:: 08/03/2023 Medtronic Past Psychological History: Depression Smoking Status: Current every day smoker Past Alcohol Use History: None Reported Additional Past Alcohol Use History / Comment(s): STARTED SMOKING AT AGE 15 QUIT ON AND OFF AND CURRENTLY SMOKING , SMOKES 1 PPD Past Drug Use History: None Reported - Past Family History Father Family Medical History: Myocardial Infarction ([place]) Additional Family Medical History / Comment(s): at age 90 from a myocardial infarction Mother Family Medical History: Cancer (Brain tumor) Medications and Allergies Home Medications Medication Instructions Recorded Confirmed Type Citalopram Hydrobromide [CeleXA] 20 mg PO DAILY 03/07/18 01/14/25 History Cholecalciferol [Vitamin D3 (25 50 mcg PO W/LUNCH 12/11/21 01/14/25 History Mcg = 1000 Iu)] Acetaminophen Tab [Tylenol] 650 mg PO Q4HR PRN tab 08/08/23 01/14/25 Rx clonazePAM [KlonoPIN] 0.5 mg PO HS 08/29/23 01/14/25 History Atorvastatin [Lipitor] 20 mg PO HS 09/14/23 01/14/25 History Ferrous Sulfate [Iron (65 MG 650 mg PO W/LUNCH 10/10/23 01/14/25 History Elemental)] Metoprolol Tartrate [Lopressor] 12.5 mg PO BID 10/10/23 01/14/25 History Aspirin EC [Ecotrin Low Dose] 81 mg PO DAILY 04/06/24 01/14/25 History Lactulose 10 gm PO BID 04/06/24 01/14/25 History metOLazone [Zaroxolyn] 2.5 mg PO MOWEFR 04/06/24 01/14/25 History Ascorbic Acid [Vitamin C] 500 mg PO DAILY 05/01/24 01/14/25 History Furosemide [Lasix] 40 mg PO DAILY 05/01/24 01/14/25 History Pantoprazole Sodium [Protonix] 40 mg PO DAILY 05/01/24 01/14/25 History Potassium Chloride [Klor-Con M20] 20 meq PO DAILY 05/01/24 01/14/25 History Cyproheptadine [Cyproheptadine HCl] 2 mg PO TID PRN 01/06/25 01/14/25 History Linaclotide [Linzess] 72 mcg PO DAILY 01/06/25 01/14/25 History Allergies Allergy/AdvReac Type Severity Reaction Status Date / Time No Known Allergies Allergy Verified 01/14/25 17:10 Surgical - Exam Vital Signs Temp Pulse Resp BP Pulse Ox 97.5 F L 80 20 124/70 98 01/14/25 12:22 01/14/25 12:22 01/14/25 12:22 01/14/25 12:22 01/14/25 12:22 - General well developed, well nourished, no distress, no pain, chronically ill - Eyes PERRL, normal ocular movement, no pale, no icteric - ENT normal pinna, normal nares, normal mucosa, no hearing loss, no congestion, poor assisted - Neck Neck is supple, no lymphadenopathy. no masses, no bruits, trachea midline, no venous distension - Respiratory Lung sounds essentially clear throughout. Respirations are symmetrical and nonlabored. No wheezes, rhonchi or crackles. - Cardiovascular Regular rhythm and rate. S1 and S2 present, negative for S3 or gallop. - Abdomen Abdomen is soft, nontender and nondistended. Active bowel sounds present in all 4 abdominal quadrants. No guarding or rigidity. No organomegaly appreciated. - Genitourinary Deferred - Rectum Deferred - Integumentary no rash, no growths, no abnormal pigmentation - Neurologic No focal deficits. normal coordination - Musculoskeletal Moves all 4 extremities with equal strength bilateral. normal gait, normal posture - Psychiatric oriented to time, oriented to person, oriented to place, speech is normal, memory intact Results - Labs 01/14/25 15:10 01/15/25 03:16 Abnormal Lab Results - Last 24 Hours (Table) 01/14/25 01/14/25 01/15/25 Range/Units 15:10 15:10 03:16 RBC 3.50 L (4.30-5.90) m/uL Hgb 11.1 L (13.0-17.5) gm/dL Hct 35.6 L (39.0-53.0) % MCV 101.7 H (80.0-100.0) fL Lymphocytes # 0.6 L (1.0-4.8) k/uL Carbon Dioxide 31 H (22-30) mmol/L BUN 38 H (9-20) mg/dL Creatinine 1.60 H 1.52 H (0.66-1.25) mg/dL Glucose 100 H (74-99) mg/dL Diabetes panel 01/14/25 01/15/25 Range/Units 15:10 03:16 Sodium 137 (137-145) mmol/L Potassium 3.7 (3.5-5.1) mmol/L Chloride 99 (98-107) mmol/L Carbon Dioxide 31 H (22-30) mmol/L BUN 38 H (9-20) mg/dL Creatinine 1.60 H 1.52 H (0.66-1.25) mg/dL Glucose 100 H (74-99) mg/dL Calcium 9.2 (8.4-10.2) mg/dL AST 21 (17-59) U/L ALT 19 (4-49) U/L Alkaline Phosphatase 116 (38-126) U/L Total Protein 6.9 (6.3-8.2) g/dL Albumin 3.5 (3.5-5.0) g/dL Calcium panel 01/14/25 Range/Units 15:10 Calcium 9.2 (8.4-10.2) mg/dL Albumin 3.5 (3.5-5.0) g/dL Pituitary panel 01/14/25 01/15/25 Range/Units 15:10 03:16 Sodium 137 (137-145) mmol/L Potassium 3.7 (3.5-5.1) mmol/L Chloride 99 (98-107) mmol/L Carbon Dioxide 31 H (22-30) mmol/L BUN 38 H (9-20) mg/dL Creatinine 1.60 H 1.52 H (0.66-1.25) mg/dL Glucose 100 H (74-99) mg/dL Calcium 9.2 (8.4-10.2) mg/dL Adrenal panel 01/14/25 01/15/25 Range/Units 15:10 03:16 Sodium 137 (137-145) mmol/L Potassium 3.7 (3.5-5.1) mmol/L Chloride 99 (98-107) mmol/L Carbon Dioxide 31 H (22-30) mmol/L BUN 38 H (9-20) mg/dL Creatinine 1.60 H 1.52 H (0.66-1.25) mg/dL Glucose 100 H (74-99) mg/dL Calcium 9.2 (8.4-10.2) mg/dL Total Bilirubin 0.4 (0.2-1.3) mg/dL AST 21 (17-59) U/L ALT 19 (4-49) U/L Alkaline Phosphatase 116 (38-126) U/L Total Protein 6.9 (6.3-8.2) g/dL Albumin 3.5 (3.5-5.0) g/dL - Imaging Chest x-ray: report reviewed, image reviewed Assessment and Plan Assessment: Distal sternal wound, recent wound culture positive for MRSA Severe diffuse calcific triple-vessel coronary artery disease, status post three-vessel coronary artery bypass grafting surgery in July 2023 Severe mitral valve regurgitation with prolapse of P2 with ruptured chordae, status post complex mitral valve repair using a 34 mm annular flex ring in July 2023 Moderate tricuspid valve regurgitation with severe pulmonary hypertension, status post tricuspid valve repair in July 2023 Paroxysmal atrial fibrillation, bradycardia with sick sinus syndrome, status post Medtronic permanent pacemaker placement in July 2023 Hypertension Hyperlipidemia Abdominal aortic aneurysm Chronic ongoing tobacco dependence Moderate restrictive lung disease GERD Depression Plan: The patient was seen and examined at his bedside on the fourth floor medical surgical unit. His chart and diagnostics were reviewed. His case was discussed in detail with Dr. Pura Mcintosh from cardiothoracic surgery. Antibiotic management per infectious disease. We will consult wound care for further wound care instructions. Discussed with the patient the importance of smoking sensation, the number to has been offered to the patient which is a line to [id number]. The patient has been initiated on vancomycin for his positive wound culture showing MRSA. Also discussed with the patient the importance of following the treatment regimen as he left AGAINST MEDICAL ADVICE on his last presentation to the emergency department. Aquacel silver has been used to cover the wound and secured with gauze and tape. More recommendations to follow based on patient's clinical course. Thank you for this consult and we look forward to working with you in the care of this patient. I have personally seen and examined the patient, performed the documentation and the assessment and plan as written. Number of minutes spent on the visit: 30. VANDANA Sanz
--- NOTE | 2025-01-15 11:31 | P.CONS ---
History of Present Illness - Reason for Consult Consult date: 01/15/25 wound care - History of Present Illness This is a 75-year-old patient being seen on 4 S. for a wound dehiscence. Patient had open heart surgery and came to the hospital on January 05 complaining of wound dehiscence at that time a culture was obtained which was positive for MRSA. However due to the lack of beds patient left AMA because he felt that he was not getting treated. Patient continued to have an open ulceration with no treatment and went to see his primary care physician who directed him back to the emergency room. At this time patient is currently on IV antibiotics. The ulceration was only answered however no drainage was present. Patient has a midline ulceration to the chest measuring approximately 1.7 x 2 x 0.3 cm granulation seen to the wound bed no tunneling or undermining noted. The wound edges are attached to the wound base slough and nonviable tissue is present. Review Of Systems: Constitutional: No fever, no chills, no night sweats. No weight change. No weakness, fatigue or lethargy. No daytime sleepiness. Integumentary:reports wounds, no lesions. No rash or pruritus. No unusual bruising. No change in hair or nails. Physical exam: General Appearance: Alert, cooperative, no distress, appears stated age. Skin: See HPI all other Skin color, texture, tugor normal, no rashes or lesions. Neurologic: Alert oriented x3 Assessment: 1. Nonhealing ulceration other site with fat layer exposure 2. Surgical wound dehiscence 3.Nicotine dependence Plan: 1. Apply Santyl to the site saline moist gauze and cover with bordered foam change daily. Patient would benefit for advanced wound care and wound care setting would be happy to see him upon discharge. Thank you for the consultation any questions please contact the wound care center DNP note has been reviewed and discussed with Dr. Hwang and the impression and plan of care has been directed as dictated. Past Medical History Past Medical History: Atrial Fibrillation, Coronary Artery Disease (CAD), Chest Pain / Angina, GERD/Reflux, Hyperlipidemia, Hypertension, Renal Disease Additional Past Medical History / Comment(s): Mitral regurgitation; abdominal aortic aneurysm History of Any Multi-Drug Resistant Organisms: MRSA Year Discovered:: 01/06/25 MDRO Source:: chest Past Surgical History: Coronary Bypass/CABG, Heart Catheterization, Hernia Repair Additional Past Surgical History / Comment(s): three-vessel CABG with mitral valve and tricuspid valve repair 07/27/2023 Past Anesthesia/Blood Transfusion Reactions: No Reported Reaction Additional Past Anesthesia/Blood Transfusion Reaction / Comm: no problems with prior blood transfusions last transfused 04-06-24/04-07-24 (total 3 units) Type of Cardiac Device: Permanent Pacemaker Device Placement Date:: 08/03/2023 Medtronic Past Psychological History: Depression Smoking Status: Current every day smoker Past Alcohol Use History: None Reported Additional Past Alcohol Use History / Comment(s): STARTED SMOKING AT AGE 15 QUIT ON AND OFF AND CURRENTLY SMOKING , SMOKES 1 PPD Past Drug Use History: None Reported - Past Family History Father Family Medical History: Myocardial Infarction ([place]) Additional Family Medical History / Comment(s): at age 90 from a myocardial infarction Mother Family Medical History: Cancer (Brain tumor) Medications and Allergies Home Medications Medication Instructions Recorded Confirmed Type Citalopram Hydrobromide [CeleXA] 20 mg PO DAILY 03/07/18 01/14/25 History Cholecalciferol [Vitamin D3 (25 50 mcg PO W/LUNCH 12/11/21 01/14/25 History Mcg = 1000 Iu)] Acetaminophen Tab [Tylenol] 650 mg PO Q4HR PRN tab 08/08/23 01/14/25 Rx clonazePAM [KlonoPIN] 0.5 mg PO HS 08/29/23 01/14/25 History Atorvastatin [Lipitor] 20 mg PO HS 09/14/23 01/14/25 History Ferrous Sulfate [Iron (65 MG 650 mg PO W/LUNCH 10/10/23 01/14/25 History Elemental)] Metoprolol Tartrate [Lopressor] 12.5 mg PO BID 10/10/23 01/14/25 History Aspirin EC [Ecotrin Low Dose] 81 mg PO DAILY 04/06/24 01/14/25 History Lactulose 10 gm PO BID 04/06/24 01/14/25 History metOLazone [Zaroxolyn] 2.5 mg PO MOWEFR 04/06/24 01/14/25 History Ascorbic Acid [Vitamin C] 500 mg PO DAILY 05/01/24 01/14/25 History Furosemide [Lasix] 40 mg PO DAILY 05/01/24 01/14/25 History Pantoprazole Sodium [Protonix] 40 mg PO DAILY 05/01/24 01/14/25 History Potassium Chloride [Klor-Con M20] 20 meq PO DAILY 05/01/24 01/14/25 History Cyproheptadine [Cyproheptadine HCl] 2 mg PO TID PRN 01/06/25 01/14/25 History Linaclotide [Linzess] 72 mcg PO DAILY 01/06/25 01/14/25 History Allergies Allergy/AdvReac Type Severity Reaction Status Date / Time No Known Allergies Allergy Verified 01/14/25 17:10 Physical Exam Vitals: Vital Signs Temp Pulse Pulse Resp BP BP Pulse Ox 01/15/25 08:31 62 111/65 01/15/25 07:18 98.5 F 56 L 17 112/59 99 01/15/25 01:33 99.2 F 60 17 118/56 96 01/15/25 00:30 53 L 16 01/14/25 21:53 98.1 F 53 L 150/72 99 01/14/25 20:49 16 01/14/25 20:26 75 18 143/75 97 01/14/25 18:09 60 18 117/58 100 01/14/25 15:23 66 18 117/64 97 01/14/25 12:22 97.5 F L 80 20 124/70 98 Intake and Output 01/14/25 01/15/25 01/15/25 22:59 06:59 14:59 Other: Voiding Method Toilet # Voids 3 Weight 47.627 kg Results CBC & Chem 7: 01/14/25 15:10 01/15/25 03:16 Labs: Abnormal Lab Results - Last 24 Hours (Table) 01/14/25 01/14/25 01/15/25 Range/Units 15:10 15:10 03:16 RBC 3.50 L (4.30-5.90) m/uL Hgb 11.1 L (13.0-17.5) gm/dL Hct 35.6 L (39.0-53.0) % MCV 101.7 H (80.0-100.0) fL Lymphocytes # 0.6 L (1.0-4.8) k/uL Carbon Dioxide 31 H (22-30) mmol/L BUN 38 H (9-20) mg/dL Creatinine 1.60 H 1.52 H (0.66-1.25) mg/dL Glucose 100 H (74-99) mg/dL Assessment and Plan (1) Non-pressure chronic ulcer of skin of other sites with fat layer exposed Current Visit: Yes Status: Acute Code(s): L98.492 - NON-PRS CHRONIC ULCER OF SKIN OF SITES W FAT LAYER EXPOSED SNOMED Code(s): 91838409 (2) Nicotine dependence Current Visit: Yes Status: Acute Code(s): F17.200 - NICOTINE DEPENDENCE, UNSPECIFIED, UNCOMPLICATED SNOMED Code(s): 22097613 (3) Wound dehiscence, surgical Current Visit: Yes Status: Acute Code(s): T81.31XA - DISRUPTION OF EXTERNAL OPERATION (SURGICAL) WOUND, NEC, INIT SNOMED Code(s): 825558060
[2025-01-15] MEDS: CHOLECALCIFEROL 25 MCG (1000 IU) TABLET PO SCH (13:16)
[2025-01-15] MEDS: FERROUS SULFATE 325 MG TAB PO SCH (13:16)
[2025-01-15] MEDS: NICOTINE 21MG/24HR PATCH TRANSDERM SCH (13:16)
[2025-01-15 15:41] VITALS: BMI 18.0
[2025-01-15] MEDS: COLLAGENASE 250 UNIT/GM OINTMENT 30 GM TUBE TOPICAL SCH (16:21)
--- NOTE | 2025-01-15 19:10 | CT ---
EXAMINATION TYPE: CT chest wo con CT DLP: 336 mGycm, Automated exposure control for dose reduction was used. DATE OF EXAM: 01/15/2025 7:00 PM COMPARISON: CT chest 11/03/2023, CTA chest 07/19/2023, chest radiograph 09/06/2024 CLINICAL INDICATION:Male, 75 years old with history of Lower sternal wound, osteo, abscess; [facility], TECHNIQUE: Multiple axial images were obtained through the chest without IV contrast. Lack of IV or o ral contrast limits evaluation of solid and hollow organ viscera. . Coronal and sagittal reformats re viewed. FINDINGS: LUNGS/ PLEURA: No pneumothorax. Mild centrilobular emphysematous changes. No pleural effusion. Mild l eft lower lobe subsegmental atelectasis. No suspicious pulmonary nodules or masses. AIRWAY: Patent and unremarkable.. HEART: The heart is mildly increased in size..Trace anterior pericardial effusion. Left anterior ches t wall cardiac pacemaker device with leads terminating in the right ventricle and right atrium. Post- CABG changes. Coronary artery calcifications and stents. MEDIASTINUM: No gross evidence of adenopathy. VASCULATURE: No aortic aneurysm. Moderate atherosclerotic calcification of the aorta and its branche s. Dilated main pulmonary artery measuring 3.8 cm suggesting pulmonary arterial hypertension. MUSCULOSKELETAL: No acute osseous abnormalities. Post surgical changes with median sternotomy wires. No osseous erosions of the sternum identified. Mild multilevel degenerative disc disease of the visua lized spine. SOFT TISSUES/LYMPH NODES: Diffuse anasarca. Mild bilateral gynecomastia. There is some mild skin thic kening just anterior to the lowest sternotomy wire. No definitive organized fluid collection involvin g the sternum. No soft tissue gas. LOWER NECK: No significant findings. UPPER ABDOMEN: Partial visualization of an infrarenal fusiform abdominal aortic aneurysm measuring up to 3.4 cm. Nonobstructive right renal 3 mm calculus. Cholelithiasis. Small hiatal hernia. Postsurgic al changes from left nephrectomy. IMPRESSION: 1. Postsurgical changes from sternotomy with mild skin thickening along its most inferior aspect. No osseous erosions or definitive organized fluid collection or soft tissue gas identified. Evaluation is limited due to lack of intravenous contrast. 2. Minimal left lower lobe subsegmental atelectasis. 3. Mild emphysematous changes. 4. Partial visualization of an infrarenal fusiform abdominal aortic aneurysm measuring up to 3.4 felicia ters. 5. Nonobstructive right renal calculus. 6. Cholelithiasis. 7. Postsurgical changes from left nephrectomy. [facility], , 01/15/2025 7:08 PM
[2025-01-15] MEDS: HEPARIN SODIUM,PORCINE 5,000 UNIT/ML 1 ML VIAL SQ SCH (20:02)
--- NOTE | 2025-01-15 22:25 | P.CONS ---
History of Present Illness - Reason for Consult Consult date: 01/15/25 Dehiscence of surgical incision Requesting physician: Marie Hawk - Chief Complaint Drainage from the lower sternal incision x months - History of Present Illness Patient is a 75-year-old male with a past medical history significant for coronary artery disease atrial fibrillation hypertension hyperlipidemia renal disease in this patient who is status post coronary artery bypass grafting in July 2023 as well as mitral and is cuspid valve repair patient presenting to the hospital concerning for wound to the lower sternal area that apparently has been there for 3 to 4 months patient mention has been taking care of it at home by keeping it clean and applying Neosporin cream however the patient be concerned that the wound is getting bigger in size and have some purulent and blood stained drainage patient apparently was in the hospital middle of December 2023 with similar symptoms at that time his wound was cultured which did grew MRSA however the patient subsequent left AMA I did not see the patient during that hospital stay patient has been complaining of pain to the lower sternal wound chest area mostly dull aching to throbbing moderate intensity without radiation patient denies high-grade fever or any chills no fever was recorded on presentation to the hospital patient was afebrile patient was nontachycardic hypotensive or hypoxic he did have white count 6.3 creatinine is 1.60 electrolyte has been normal liver enzymes are normal patient has been started on vancomycin infectious disease was consulted for further management of antibiotic therapy Review of Systems Positive point and negatives has been mentioned in the HPI, complete review of systems was performed and all other systems are negative Past Medical History Past Medical History: Atrial Fibrillation, Coronary Artery Disease (CAD), GERD/Reflux, Hyperlipidemia, Hypertension, Renal Disease Additional Past Medical History / Comment(s): Mitral regurgitation; abdominal aortic aneurysm History of Any Multi-Drug Resistant Organisms: MRSA Year Discovered:: 01/06/25 MDRO Source:: chest Past Surgical History: Coronary Bypass/CABG, Heart Catheterization, Hernia Repair Additional Past Surgical History / Comment(s): three-vessel CABG with mitral valve repair 07/27/2023 Past Anesthesia/Blood Transfusion Reactions: No Reported Reaction Additional Past Anesthesia/Blood Transfusion Reaction / Comm: no problems with prior blood transfusions last transfused 04-06-24/04-07-24 (total 3 units) Type of Cardiac Device: Permanent Pacemaker Device Placement Date:: 08/03/2023 Medtronic Past Psychological History: Depression Smoking Status: Current every day smoker Past Alcohol Use History: None Reported Additional Past Alcohol Use History / Comment(s): STARTED SMOKING AT AGE 15 QUIT ON AND OFF AND CURRENTLY SMOKING , SMOKES 1 PPD Past Drug Use History: None Reported - Past Family History Father Family Medical History: Myocardial Infarction ([place]) Additional Family Medical History / Comment(s): at age 90 from a myocardial infarction Mother Family Medical History: Cancer (Brain tumor) Medications and Allergies Home Medications Medication Instructions Recorded Confirmed Type Citalopram Hydrobromide [CeleXA] 20 mg PO DAILY 03/07/18 01/14/25 History Cholecalciferol [Vitamin D3 (25 50 mcg PO W/LUNCH 12/11/21 01/14/25 History Mcg = 1000 Iu)] Acetaminophen Tab [Tylenol] 650 mg PO Q4HR PRN tab 08/08/23 01/14/25 Rx clonazePAM [KlonoPIN] 0.5 mg PO HS 08/29/23 01/14/25 History Atorvastatin [Lipitor] 20 mg PO HS 09/14/23 01/14/25 History Ferrous Sulfate [Iron (65 MG 650 mg PO W/LUNCH 10/10/23 01/14/25 History Elemental)] Metoprolol Tartrate [Lopressor] 12.5 mg PO BID 10/10/23 01/14/25 History Aspirin EC [Ecotrin Low Dose] 81 mg PO DAILY 04/06/24 01/14/25 History Lactulose 10 gm PO BID 04/06/24 01/14/25 History metOLazone [Zaroxolyn] 2.5 mg PO MOWEFR 04/06/24 01/14/25 History Ascorbic Acid [Vitamin C] 500 mg PO DAILY 05/01/24 01/14/25 History Furosemide [Lasix] 40 mg PO DAILY 05/01/24 01/14/25 History Pantoprazole Sodium [Protonix] 40 mg PO DAILY 05/01/24 01/14/25 History Potassium Chloride [Klor-Con M20] 20 meq PO DAILY 05/01/24 01/14/25 History Cyproheptadine [Cyproheptadine HCl] 2 mg PO TID PRN 01/06/25 01/14/25 History Linaclotide [Linzess] 72 mcg PO DAILY 01/06/25 01/14/25 History Allergies Allergy/AdvReac Type Severity Reaction Status Date / Time No Known Allergies Allergy Verified 01/14/25 17:10 Physical Exam Vitals: Vital Signs Temp Pulse Pulse Resp BP BP Pulse Ox 01/15/25 07:18 98.5 F 56 L 17 112/59 99 01/15/25 01:33 99.2 F 60 17 118/56 96 01/15/25 00:30 53 L 16 01/14/25 21:53 98.1 F 53 L 150/72 99 01/14/25 20:49 16 01/14/25 20:26 75 18 143/75 97 01/14/25 18:09 60 18 117/58 100 01/14/25 15:23 66 18 117/64 97 01/14/25 12:22 97.5 F L 80 20 124/70 98 Intake and Output 01/14/25 01/15/25 01/15/25 22:59 06:59 14:59 Other: Voiding Method Toilet # Voids 3 Weight 47.627 kg GENERAL DESCRIPTION: Elderly male lying in bed, no distress. No tachypnea or accessory muscle of respiration use. HEENT: Shows Pallor , no scleral icterus. Oral mucous membrane is dry. No phary ngeal erythema or thrush NECK: Trachea central, no thyromegaly. LUNGS: Unlabored breathing. Clear to auscultation anteriorly. No wheeze or crackle. HEART: S1, S2, regular rate and rhythm. Lower sternal incision with a wound some bloodstained drainage ABDOMEN: Soft, no tenderness , guarding or rigidity, no organomegaly EXTREMITIES: No edema of feet. SKIN: No rash, no masses palpable. NEUROLOGICAL: The patient is awake, alert, oriented x3, mood and affect normal. Results CBC & Chem 7: 01/14/25 15:10 01/15/25 03:16 Labs: Abnormal Lab Results - Last 24 Hours (Table) 01/14/25 01/14/25 01/15/25 Range/Units 15:10 15:10 03:16 RBC 3.50 L (4.30-5.90) m/uL Hgb 11.1 L (13.0-17.5) gm/dL Hct 35.6 L (39.0-53.0) % MCV 101.7 H (80.0-100.0) fL Lymphocytes # 0.6 L (1.0-4.8) k/uL Carbon Dioxide 31 H (22-30) mmol/L BUN 38 H (9-20) mg/dL Creatinine 1.60 H 1.52 H (0.66-1.25) mg/dL Glucose 100 H (74-99) mg/dL Assessment and Plan (1) Sternal osteomyelitis Current Visit: Yes Status: Acute Code(s): M86.9 - OSTEOMYELITIS, UNSPECIFIED SNOMED Code(s): 774600697 (2) MRSA (methicillin resistant Staphylococcus aureus) infection Current Visit: Yes Status: Acute Code(s): A49.02 - METHICILLIN RESIS STAPH INFECTION, UNSP SITE SNOMED Code(s): 951896522 (3) Wound dehiscence, surgical Current Visit: Yes Status: Acute Code(s): T81.31XA - DISRUPTION OF EXTERNAL OPERATION (SURGICAL) WOUND, NEC, INIT SNOMED Code(s): 745938459 Plan: 1patient presented to hospital with a chronic nonhealing wound to the lower end of the sternal and this patient symptom almost for 3 to 4 months with recent culture obtained on 01/06/2025 that was positive for MRSA with high clinical suspicion for possible sternal osteomyelitis/abscess. 2patient with solitary kidney elevated creatinine high risk of nephrotoxicity from vancomycin. 3we will obtain CT of the sternal area to make sure no evidence of any abscess or osteomyelitis cannot use contrast because of his elevated creatinine. 4discontinue vancomycin. 5we will start the patient on daptomycin 6 mg/kg daily and check inflammatory markers will likely need a PICC line for outpatient IV antibiotics We will follow on clinical condition and cultures to further adjust medication if needed Thank you for this consultation we will follow the patient along with you Dictation was produced using [employer] dictation software. please excuse any grammatical, word or spelling errors. Time with Patient: Greater than 30
[2025-01-16 04:18] LABS: African American GFR (CKD) 46 (>60 ml/min/1.73 sqM); Anion Gap 6 mmol/L; Blood Urea Nitrogen 37 mg/dL (9-20); Calcium 9.2 mg/dL (8.4-10.2); Carbon Dioxide 28 mmol/L (22-30); Chloride 97 mmol/L (98-107); Glucose 94 mg/dL (74-99); Non-African American GFR(CKD) 40 (>60 ml/min/1.73 sqM); Potassium 3.5 mmol/L (3.5-5.1); Sodium 131 mmol/L (137-145)
[2025-01-16 08:27] LABS: Basophils # (A) 0.07 X 10*3/uL (0.00-0.10); Eosinophils # (A) 0.14 X 10*3/uL (0.04-0.35); HCT 30.3 % (39.6-50.0); HGB 10.1 g/dL (13.0-17.0); Lymphocytes # (A) 0.92 X 10*3/uL (0.90-5.00); Lymphocytes % (A) 13.2 %; MCH 32.8 pg (27.0-32.0); MCHC 33.3 g/dL (32.0-37.0); MCV 98.4 FL (80.0-97.0); Monocytes % (A) 8.6 %; NRBC Per 100 WBC 0 X 10*3/uL (0.00-0.01); Neutrophils # (A) 5.21 X 10*3/uL (1.80-7.70); Neutrophils % (A) 74.9 %; Platelet Count 254 X 10*3/uL (140-440); RBC 3.08 X 10*6/uL (4.40-5.60); RDW 12.8 % (11.5-14.5); WBC 6.96 X 10*3/uL (4.50-10.00)
[2025-01-16] MEDS ORDERED: Potassium Replacement Protocol 1 EACH MISC MISCELLANE PRN (09:14)
--- NOTE | 2025-01-16 09:29 | P.PN ---
Subjective This is a pleasant 75 years old male with history of nicotine dependence, still smoking and CHF. Patient came to the hospital about 8 days ago for chest pain found to have lower sternal wound, culture sent showing MRSA however patient signed AMA. He went to see his PCP Dr. Holloway yesterday for follow-up appointment still complaining from chest pain. He referred him to the hospital Patient denies any GI/ symptoms. He still feels little short of breath and due to coughing. No headache dizziness. No limb weakness or tingling His MAC 1 pack/day and he was counseled to quit and he is not sure but he agrees to the nicotine patch. He declines alcohol or illicit drugs. Vital stable and afebrile except for mild bradycardia which is asymptomatic. Labs are unremarkable with WBC 10.5 and 6.3, hemoglobin stable at 11.1. Creatinine chronically elevated 1.6-1.5 which looks like baseline since last year although it fluctuates times 1.01.2 01/16 Patient presents with left sternal wound secondary to MRSA at the lower end. No other new complaint. Chest pain controlled Patient had CT scanning of the chest which I reviewed showing postsurgical changes from the lower sternotomy with mild skin thickening along its inferior aspect. There is no mention of abscess or fluid collection Patient currently covered with IV daptomycin. Given his elevated creatinine at 1.6 which is baseline. Patient has evidence of chronic kidney disease with base line creatinine 1.5-1 0.6-1.8. Low potassium has been replaced Continue with aspirin Labs reviewed, ESR is mildly elevated 26 but CRP is elevated 8.1 Hemoglobin 10.1 and sodium 131 Review of systems CONSTITUTIONAL: No fever, no malaise, no fatigue. HEENT: No recent visual problems or hearing problems. Denied any sore throat. CARDIOVASCULAR: No orthopnea, PND, no palpitations, no syncope. PULMONARY: No shortness of breath, no cough, no hemoptysis. GASTROINTESTINAL: No diarrhea, no nausea, no vomiting, no abdominal pain. Normoactive bowel sounds. NEUROLOGICAL: No headaches, no weakness, no numbness. HEMATOLOGICAL: Denies any bleeding or petechiae. Active Medications Generic Name Dose Route Start Last Admin Trade Name Freq PRN Reason Stop Dose Admin Acetaminophen 650 mg 01/14/25 17:10 Acetaminophen Tab 325 Mg Tab PO Q4HR PRN Fever and/ or Mild Pain Hydrocodone Bitart/Acetaminophen 1 each 01/14/25 16:38 01/16/25 05:09 Hydrocodone/Apap 5-325mg 1 Each Tab PO 1 each Q4HR PRN Administration Moderate Pain (Scale 4 to 6) Ascorbic Acid 500 mg 01/15/25 09:00 01/16/25 09:06 Ascorbic Acid 500 Mg Tab PO 500 mg DAILY ANCA Administration Aspirin 81 mg 01/15/25 09:00 01/16/25 09:06 Aspirin 81 Mg PO 81 mg DAILY ANCA Administration Cholecalciferol 50 mcg 01/15/25 12:30 01/15/25 13:16 Cholecalciferol 25 Mcg (1000 Iu) Tablet PO 50 mcg W/LUNCH ANCA Administration Citalopram Hydrobromide 20 mg 01/15/25 09:00 01/16/25 09:06 Citalopram Hydrobromide 20 Mg Tab PO 20 mg DAILY ANCA Administration Clonazepam 0.5 mg 01/14/25 21:00 01/15/25 20:01 Clonazepam 0.5 Mg Tab PO 0.5 mg HS ANCA Administration Collagenase 1 applic 01/15/25 11:30 01/16/25 09:09 Collagenase 250 Unit/Gm Ointment 30 Gm Tube TOPICAL 1 applic DAILY ANCA Administration Protocol Cyproheptadine HCl 2 mg 01/14/25 17:10 Cyproheptadine 4 Mg Tablet PO TID PRN apeptite Ferrous Sulfate 650 mg 01/15/25 12:30 01/15/25 13:16 Ferrous Sulfate 325 Mg Tab PO 650 mg W/LUNCH ANCA Administration Furosemide 40 mg 01/15/25 09:00 01/16/25 09:06 Furosemide 40 Mg Tab PO 40 mg DAILY ANCA Administration Heparin Sodium (Porcine) 5,000 unit 01/15/25 21:00 01/16/25 09:08 Heparin Sodium,Porcine 5,000 Unit/Ml 1 Ml Vial SQ 5,000 unit Q12HR ANCA Administration Daptomycin 300 mg/ Sodium 50 mls @ 100 mls/hr 01/16/25 09:00 01/16/25 09:08 Chloride IVPB 100 mls/hr Q24HR ANCA Administration Protocol Lactulose 10 gm 01/14/25 21:00 01/16/25 09:07 Lactulose 20 Gm/30 Ml Cup PO 10 gm BID ANCA Administration Metolazone 2.5 mg 01/14/25 18:00 01/16/25 09:06 Metolazone 2.5 Mg Tab PO 2.5 mg [id number] ANCA Administration Metoprolol Tartrate 12.5 mg 01/14/25 21:00 01/16/25 09:06 Metoprolol Tartrate 12.5 Mg Tab PO 12.5 mg BID ANCA Administration Miscellaneous Information 1 each 01/16/25 09:14 Potassium Replacement Protocol 1 Each Misc MISCELLANE DAILY PRN Per Protocol Protocol Morphine Sulfate 4 mg 01/14/25 16:38 01/15/25 02:42 Morphine Sulfate 4 Mg/Ml Syringe IV 4 mg Q4HR PRN Administration Severe Pain (Scale 7 to 10) Naloxone HCl 0.2 mg 01/14/25 16:38 Naloxone 0.4 Mg/Ml 1 Ml Vial IV Q2M PRN Opioid Reversal Nicotine 1 patch 01/15/25 10:45 01/16/25 09:07 Nicotine 21mg/24hr Patch TRANSDERM 1 patch DAILY ANCA Administration Linzess 72 Mcg 1 each 01/15/25 09:00 01/15/25 08:37 PO Not Given DAILY ANCA Ondansetron HCl 4 mg 01/14/25 16:38 Ondansetron 4 Mg/2 Ml Vial IVP Q8HR PRN Nausea And Vomiting Pantoprazole Sodium 40 mg 01/15/25 07:30 01/16/25 06:30 Pantoprazole 40 Mg Tablet PO 40 mg [id number] ANCA Administration Potassium Chloride 20 meq 01/15/25 09:00 01/16/25 09:06 Potassium Chloride Er 20 Meq Tab.Er PO 20 meq DAILY ANCA Administration Potassium Chloride 20 meq 01/16/25 10:00 Potassium Chloride Er 20 Meq Tab.Er PO 01/16/25 11:01 Q1HR ANCA Protocol Objective - Vital Signs Vital signs: Vital Signs Temp 98.4 F 01/16/25 07:08 Pulse 55 L 01/16/25 07:08 Resp 18 01/16/25 07:08 BP 109/57 01/16/25 07:08 Pulse Ox 99 01/16/25 07:08 FiO2 Intake & Output 01/15/25 01/16/25 01/16/25 18:59 06:59 18:59 Weight 47.627 kg Other: Voiding Method Toilet # Voids 3 4 - Exam GENERAL: The patient is alert and oriented x3, not in any acute distress. Well developed, well nourished. HEENT: Pupils are round and equally reacting to light. EOMI. No scleral icterus. No conjunctival pallor. Normocephalic, atraumatic. No pharyngeal erythema. No thyromegaly. CARDIOVASCULAR: S1 and S2 present. No murmurs, rubs, or gallops. -PULMONARY: Chest is clear to auscultation, no wheezing , no crackles. Lower sternal wound with mild purulent discharge ABDOMEN: Soft, nontender, nondistended, normoactive bowel sounds. No palpable organomegaly. MUSCULOSKELETAL: No joint swelling or deformity. EXTREMITIES: No cyanosis, clubbing, or pedal edema. NEUROLOGICAL: Gross neurological examination did not reveal any focal deficits. SKIN: No rashes. no petechiae. - Labs CBC & Chem 7: 01/16/25 03:17 01/16/25 03:17 Labs: Abnormal Lab Results - Last 24 Hours (Table) 01/15/25 01/15/25 01/16/25 Range/Units 14:46 14:46 03:17 RBC (4.40-5.60) X 10*6/uL Hgb (13.0-17.0) g/dL Hct (39.6-50.0) % MCV (80.0-97.0) FL MCH (27.0-32.0) pg ESR 26 H (0-20) mm/Hr Sodium 131 L (137-145) mmol/L Chloride 97 L (98-107) mmol/L BUN 37 H (9-20) mg/dL Creatinine 1.63 H (0.66-1.25) mg/dL C-Reactive Protein 8.10 H (0.00-0.80) mg/dL 01/16/25 Range/Units 03:17 RBC 3.08 L (4.40-5.60) X 10*6/uL Hgb 10.1 L (13.0-17.0) g/dL Hct 30.3 L (39.6-50.0) % MCV 98.4 H (80.0-97.0) FL MCH 32.8 H (27.0-32.0) pg ESR (0-20) mm/Hr Sodium (137-145) mmol/L Chloride (98-107) mmol/L BUN (9-20) mg/dL Creatinine (0.66-1.25) mg/dL C-Reactive Protein (0.00-0.80) mg/dL Assessment and Plan Assessment: Lower sternal wound infection secondary to MRSA Recent history of CABG in reference to his coronary artery disease. Rule out infection Nicotine dependence Exertional dyspnea and coughing related to acute CHF exacerbation Diabetes mellitus Hypertension Hyperlipidemia History of GERD Chronic kidney disease CAD status post three-vessel CABG in 2022 Plan: Continue with IV daptomycin Infectious disease consult Cardiothoracic surgery team consult Monitor creatinine and electrolytes Labs and medication were reviewed.. Continue same treatment. Continue with symptomatic treatment. Resume home medication. Monitor labs and vitals. DVT and GI prophylaxis. Further recommendations as per clinical course of the patient DVT prophylaxis: Subcutaneous heparin GI Prophylaxis: ppi PT/OT: Pending Prognosis is guarded
[2025-01-16] MEDS: POTASSIUM CHLORIDE ER 20 MEQ TAB.ER PO SCH (10:34)
--- NOTE | 2025-01-16 12:09 | P.PN ---
Subjective Progress Note Date: 01/16/25 Principal diagnosis: Distal sternal wound, recent wound culture positive for MRSA History of severe diffuse calcific triple-vessel coronary artery disease, status post three-vessel coronary artery bypass grafting surgery in July 2023 Severe mitral valve regurgitation with prolapse of P2 with ruptured chordae, status post complex mitral valve repair using a 34 mm annular flex ring in July 2023 Moderate tricuspid valve regurgitation with severe pulmonary hypertension, status post tricuspid valve repair in July 2023 Paroxysmal atrial fibrillation, bradycardia with sick sinus syndrome, status post [employer]tr[employer] permanent pacemaker placement in July 2023 Hypertension Hyperlipidemia Abdominal aortic aneurysm Chronic ongoing tobacco dependence Moderate restrictive lung disease GERD Depression The patient was seen and examined laying in bed on the medical surgical unit in no acute distress. States he feels better than when he came in. Remains afebrile, WBC normal. Remains on room air with oxygen saturation in the high 90s. Currently on IV daptomycin per infectious disease as well as Santyl for local wound care. CT of the chest was reviewed. No other new concerns. Objective - Vital Signs Vital signs: Vital Signs Temp 98.4 F 01/16/25 07:08 Pulse 55 L 01/16/25 07:08 Resp 18 01/16/25 07:08 BP 109/57 01/16/25 07:08 Pulse Ox 99 01/16/25 07:08 FiO2 Intake & Output 01/15/25 01/16/25 01/16/25 18:59 06:59 18:59 Weight 47.627 kg Other: Voiding Method Toilet # Voids 3 4 - Exam CONSTITUTIONAL: Appears comfortable, cooperative, no acute distress RESPIRATORY: Lungs sounds diminished bilaterally. Respirations even, nonlabored. Currently on room air with oxygen saturation 99% CARDIOVASCULAR: S1, S2 present. Regular rate and rhythm. Sternum stable. Palpable peripheral pulses bilaterally. No edema present GASTROINTESTINAL: Abdomen soft, nontender, nondistended. Active bowel sounds present 4 quadrants. Tolerating diet GENITOURINARY: Continues to void INTEGUMENTARY: Skin is warm and dry. Clean dry dressing covering distal sternal wound NEUROLOGIC: Cranial nerves II through XII intact MUSKULOSKELETAL: Able to move all extremities, strength equal bilaterally, gait normal PSYCHIATRIC: Alert and oriented to person place and time, appropriate affect, intact judgment and insight - Allied health notes Allied health notes reviewed: nursing - Labs CBC & Chem 7: 01/16/25 03:17 01/16/25 03:17 Labs: Abnormal Lab Results - Last 24 Hours (Table) 01/15/25 01/15/25 01/16/25 Range/Units 14:46 14:46 03:17 RBC (4.40-5.60) X 10*6/uL Hgb (13.0-17.0) g/dL Hct (39.6-50.0) % MCV (80.0-97.0) FL MCH (27.0-32.0) pg ESR 26 H (0-20) mm/Hr Sodium 131 L (137-145) mmol/L Chloride 97 L (98-107) mmol/L BUN 37 H (9-20) mg/dL Creatinine 1.63 H (0.66-1.25) mg/dL C-Reactive Protein 8.10 H (0.00-0.80) mg/dL 01/16/25 Range/Units 03:17 RBC 3.08 L (4.40-5.60) X 10*6/uL Hgb 10.1 L (13.0-17.0) g/dL Hct 30.3 L (39.6-50.0) % MCV 98.4 H (80.0-97.0) FL MCH 32.8 H (27.0-32.0) pg ESR (0-20) mm/Hr Sodium (137-145) mmol/L Chloride (98-107) mmol/L BUN (9-20) mg/dL Creatinine (0.66-1.25) mg/dL C-Reactive Protein (0.00-0.80) mg/dL - Imaging and Cardiology CT scan - chest: report reviewed, image reviewed Assessment and Plan Assessment: Distal sternal wound, recent wound culture positive for MRSA History of severe diffuse calcific triple-vessel coronary artery disease, status post three-vessel coronary artery bypass grafting surgery in July 2023 Severe mitral valve regurgitation with prolapse of P2 with ruptured chordae, status post complex mitral valve repair using a 34 mm annular flex ring in July 2023 Moderate tricuspid valve regurgitation with severe pulmonary hypertension, status post tricuspid valve repair in July 2023 Paroxysmal atrial fibrillation, bradycardia with sick sinus syndrome, status post [employer] permanent pacemaker placement in July 2023 Hypertension Hyperlipidemia Abdominal aortic aneurysm Chronic ongoing tobacco dependence Moderate restrictive lung disease GERD Depression Plan: No surgical intervention from our standpoint Antibiotics per infectious disease Local wound care 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 Please call us for any further questions No need for follow-up with Dr. Mcintosh at this time
[2025-01-16] MEDS ORDERED: VANCOMYCIN 750 MG in SODIUM CHLORIDE 0.9% 250 ML IVPB ONE (12:30)
--- NOTE | 2025-01-16 16:02 | P.PN ---
Subjective Progress Note Date: 01/16/25 Principal diagnosis: Reason for follow-up is MRSA sternal wound infection concern for possible osteo- Patient is a 75-year-old male with a past medical history significant for coronary artery disease atrial fibrillation hypertension hyperlipidemia renal disease in this patient who is status post coronary artery bypass grafting in July 2023 as well as mitral and is cuspid valve repair patient presenting to the hospital concerning for wound to the lower sternal area that apparently has been there for 3 to 4 months with recent culture positive for MRSA patient did have a CT without contrast did not mention any abscess. On today's evaluation that is 01/16/2025,the patient denies any fever or any chills, patient is breathing comfortably on room air, the patient denies chest pain shortness of breath and no significant cough, patient denies abdominal pain, no nausea vomiting or diarrhea. Patient white count 6.96 sed rate of 26 creatinine is 1.63 blood cultures are pending Objective - Vital Signs Vital signs: Vital Signs Temp 98.4 F 01/16/25 07:08 Pulse 55 L 01/16/25 07:08 Resp 18 01/16/25 07:08 BP 109/57 01/16/25 07:08 Pulse Ox 99 01/16/25 07:08 FiO2 Intake & Output 01/15/25 01/16/25 01/16/25 18:59 06:59 18:59 Weight 47.627 kg Other: Voiding Method Toilet # Voids 3 4 - Exam GENERAL DESCRIPTION: An elderly male lying in bed in no distress RESPIRATORY SYSTEM: Unlabored breathing , decreased breath sounds at bases HEART: S1 S2 regular rate and rhythm , ABDOMEN: Soft , no tenderness EXTREMITIES: No edema feet - Labs CBC & Chem 7: 01/16/25 03:17 01/16/25 03:17 Labs: Abnormal Lab Results - Last 24 Hours (Table) 01/15/25 01/15/25 01/16/25 Range/Units 14:46 14:46 03:17 RBC (4.40-5.60) X 10*6/uL Hgb (13.0-17.0) g/dL Hct (39.6-50.0) % MCV (80.0-97.0) FL MCH (27.0-32.0) pg ESR 26 H (0-20) mm/Hr Sodium 131 L (137-145) mmol/L Chloride 97 L (98-107) mmol/L BUN 37 H (9-20) mg/dL Creatinine 1.63 H (0.66-1.25) mg/dL C-Reactive Protein 8.10 H (0.00-0.80) mg/dL 01/16/25 Range/Units 03:17 RBC 3.08 L (4.40-5.60) X 10*6/uL Hgb 10.1 L (13.0-17.0) g/dL Hct 30.3 L (39.6-50.0) % MCV 98.4 H (80.0-97.0) FL MCH 32.8 H (27.0-32.0) pg ESR (0-20) mm/Hr Sodium (137-145) mmol/L Chloride (98-107) mmol/L BUN (9-20) mg/dL Creatinine (0.66-1.25) mg/dL C-Reactive Protein (0.00-0.80) mg/dL Assessment and Plan (1) Sternal osteomyelitis Current Visit: Yes Status: Acute Code(s): M86.9 - OSTEOMYELITIS, UNSPECIFIED SNOMED Code(s): 444630677 (2) MRSA (methicillin resistant Staphylococcus aureus) infection Current Visit: Yes Status: Acute Code(s): A49.02 - METHICILLIN RESIS STAPH INFECTION, UNSP SITE SNOMED Code(s): 254966292 (3) Wound dehiscence, surgical Current Visit: Yes Status: Acute Code(s): T81.31XA - DISRUPTION OF EXTERNAL OPERATION (SURGICAL) WOUND, NEC, INIT SNOMED Code(s): 460909467 Plan: 1patient presented to hospital with a chronic nonhealing wound to the lower end of the sternal and this patient symptom almost for 3 to 4 months with recent culture obtained on 01/06/2025 that was positive for MRSA with high clinical suspicion for possible sternal osteomyelitis/abscess. 2patient with solitary kidney elevated creatinine high risk of nephrotoxicity from vancomycin which has been discontinued 3patient did have CT of the sternal area did not show any abscess 4patient is currently being treated daptomycin 6 mg/kg daily awaiting blood cultures to be finalized before placing a PICC line for outpatient IV antibiotics Dictation was produced using [employer] dictation software. please excuse any grammatical, word or spelling errors. Time with Patient: Less than 30
--- NOTE | 2025-01-17 12:03 | P.PN ---
Subjective This is a pleasant 75 years old male with history of nicotine dependence, still smoking and CHF. Patient came to the hospital about 8 days ago for chest pain found to have lower sternal wound, culture sent showing MRSA however patient signed AMA. He went to see his PCP Dr. Holloway yesterday for follow-up appointment still complaining from chest pain. He referred him to the hospital Patient denies any GI/ symptoms. He still feels little short of breath and due to coughing. No headache dizziness. No limb weakness or tingling His MAC 1 pack/day and he was counseled to quit and he is not sure but he agrees to the nicotine patch. He declines alcohol or illicit drugs. Vital stable and afebrile except for mild bradycardia which is asymptomatic. Labs are unremarkable with WBC 10.5 and 6.3, hemoglobin stable at 11.1. Creatinine chronically elevated 1.6-1.5 which looks like baseline since last year although it fluctuates times 1.01.2 01/16 Patient presents with left sternal wound secondary to MRSA at the lower end. No other new complaint. Chest pain controlled Patient had CT scanning of the chest which I reviewed showing postsurgical changes from the lower sternotomy with mild skin thickening along its inferior aspect. There is no mention of abscess or fluid collection Patient currently covered with IV daptomycin. Given his elevated creatinine at 1.6 which is baseline. Patient has evidence of chronic kidney disease with base line creatinine 1.5-1 0.6-1.8. Low potassium has been replaced Continue with aspirin Labs reviewed, ESR is mildly elevated 26 but CRP is elevated 8.1 Hemoglobin 10.1 and sodium 131 01/17 Patient blood culture positive for presumptive MRSA most likely from his lower sternal wound which was also infected with MRSA Patient currently covered with IV daptomycin Cardiothoracic surgery team recommended no surgical intervention but follow-up outpatient Patient will require PICC line after finalizing a blood culture per ID team. We will discuss with IV team if we can place the PICC line earlier today. Patient eager to go home. Patient denies chest pain dyspnea or any other new complaint Plan discussed with staff Objective - Vital Signs Vital signs: Vital Signs Temp 97.8 F 01/17/25 07:14 Pulse 52 L 01/17/25 07:14 Resp 20 01/17/25 07:14 BP 107/59 01/17/25 07:14 Pulse Ox 98 01/17/25 07:14 FiO2 Intake & Output 01/16/25 01/17/25 01/17/25 18:59 06:59 18:59 Other: Voiding Method Toilet Toilet # Voids 3 6 # Bowel Movements 1 - Exam GENERAL: The patient is alert and oriented x3, not in any acute distress. Well developed, well nourished. HEENT: Pupils are round and equally reacting to light. EOMI. No scleral icterus. No conjunctival pallor. Normocephalic, atraumatic. No pharyngeal erythema. No thyromegaly. CARDIOVASCULAR: S1 and S2 present. No murmurs, rubs, or gallops. -PULMONARY: Chest is clear to auscultation, no wheezing , no crackles. Lower sternal wound with mild purulent discharge ABDOMEN: Soft, nontender, nondistended, normoactive bowel sounds. No palpable organomegaly. MUSCULOSKELETAL: No joint swelling or deformity. EXTREMITIES: No cyanosis, clubbing, or pedal edema. NEUROLOGICAL: Gross neurological examination did not reveal any focal deficits. SKIN: No rashes. no petechiae. - Labs CBC & Chem 7: 01/16/25 03:17 01/16/25 03:17 Labs: Microbiology - Last 24 Hours (Table) 01/15/25 14:46 Blood Culture Gram Stain - Preliminary Blood Blood Culture - Preliminary Presumptive MRSA Molecular ID Assessment and Plan Assessment: Lower sternal wound infection secondary to MRSA MRSA bacteremia Recent history of CABG in reference to his coronary artery disease. Rule out infection Nicotine dependence Exertional dyspnea and coughing related to acute CHF exacerbation Diabetes mellitus Hypertension Hyperlipidemia History of GERD Chronic kidney disease CAD status post three-vessel CABG in 2022 Plan: Continue with IV daptomycin plan for PICC line after blood culture finalize for outpatient IV antibiotic. Patient informed and he agrees also advised to discontinue PICC line after finish of antibiotics and he agrees Infectious disease consult Cardiothoracic surgery team consult Monitor creatinine and electrolytes Labs and medication were reviewed.. Continue same treatment. Continue with symptomatic treatment. Resume home medication. Monitor labs and vitals. DVT and GI prophylaxis. Further recommendations as per clinical course of the patient DVT prophylaxis: Subcutaneous heparin GI Prophylaxis: ppi PT/OT: Pending Prognosis is guarded
--- NOTE | 2025-01-18 10:10 | P.PN ---
Subjective This is a pleasant 75 years old male with history of nicotine dependence, still smoking and CHF. Patient came to the hospital about 8 days ago for chest pain found to have lower sternal wound, culture sent showing MRSA however patient signed AMA. He went to see his PCP Dr. Holloway yesterday for follow-up appointment still complaining from chest pain. He referred him to the hospital Patient denies any GI/ symptoms. He still feels little short of breath and due to coughing. No headache dizziness. No limb weakness or tingling His MAC 1 pack/day and he was counseled to quit and he is not sure but he agrees to the nicotine patch. He declines alcohol or illicit drugs. Vital stable and afebrile except for mild bradycardia which is asymptomatic. Labs are unremarkable with WBC 10.5 and 6.3, hemoglobin stable at 11.1. Creatinine chronically elevated 1.6-1.5 which looks like baseline since last year although it fluctuates times 1.01.2 01/16 Patient presents with left sternal wound secondary to MRSA at the lower end. No other new complaint. Chest pain controlled Patient had CT scanning of the chest which I reviewed showing postsurgical changes from the lower sternotomy with mild skin thickening along its inferior aspect. There is no mention of abscess or fluid collection Patient currently covered with IV daptomycin. Given his elevated creatinine at 1.6 which is baseline. Patient has evidence of chronic kidney disease with base line creatinine 1.5-1 0.6-1.8. Low potassium has been replaced Continue with aspirin Labs reviewed, ESR is mildly elevated 26 but CRP is elevated 8.1 Hemoglobin 10.1 and sodium 131 01/17 Patient blood culture positive for presumptive MRSA most likely from his lower sternal wound which was also infected with MRSA Patient currently covered with IV daptomycin Cardiothoracic surgery team recommended no surgical intervention but follow-up outpatient Patient will require PICC line after finalizing a blood culture per ID team. We will discuss with IV team if we can place the PICC line earlier today. Patient eager to go home. Patient denies chest pain dyspnea or any other new complaint Plan discussed with staff 01/18 Patient feels improved, he is walking in his room with no symptoms. He still been treated for his wound in the lower EXTR now with secondary to MRSA infection associated with presumptive MRSA bacteremia. His blood culture is not final once finalized patient will be placed on PICC line for outpatient IV antibiotics as per recommendation of infectious disease team will follow closely as well. Patient currently on IV daptomycin Objective - Vital Signs Vital signs: Vital Signs Temp 97.8 F 01/18/25 07:01 Pulse 65 01/18/25 07:01 Resp 20 01/18/25 07:01 BP 100/64 01/18/25 07:01 Pulse Ox 100 01/18/25 07:01 FiO2 Intake & Output 01/17/25 01/18/25 01/18/25 18:59 06:59 18:59 Weight 47.627 kg Other: Voiding Method Toilet Toilet # Voids 3 4 - Exam GENERAL: The patient is alert and oriented x3, not in any acute distress. Well developed, well nourished. HEENT: Pupils are round and equally reacting to light. EOMI. No scleral icterus. No conjunctival pallor. Normocephalic, atraumatic. No pharyngeal erythema. No thyromegaly. CARDIOVASCULAR: S1 and S2 present. No murmurs, rubs, or gallops. -PULMONARY: Chest is clear to auscultation, no wheezing , no crackles. Lower sternal wound with mild purulent discharge ABDOMEN: Soft, nontender, nondistended, normoactive bowel sounds. No palpable organomegaly. MUSCULOSKELETAL: No joint swelling or deformity. EXTREMITIES: No cyanosis, clubbing, or pedal edema. NEUROLOGICAL: Gross neurological examination did not reveal any focal deficits. SKIN: No rashes. no petechiae. - Labs CBC & Chem 7: 01/16/25 03:17 01/16/25 03:17 Labs: Microbiology - Last 24 Hours (Table) 01/15/25 14:46 Blood Culture Gram Stain - Preliminary Blood Blood Culture - Preliminary Presumptive MRSA Molecular ID Assessment and Plan Assessment: Lower sternal wound infection secondary to MRSA MRSA bacteremia Recent history of CABG in reference to his coronary artery disease. Rule out infection Nicotine dependence Exertional dyspnea and coughing related to acute CHF exacerbation Diabetes mellitus Hypertension Hyperlipidemia History of GERD Chronic kidney disease CAD status post three-vessel CABG in 2022 Plan: Continue with IV daptomycin plan for PICC line after blood culture finalize for outpatient IV antibiotic. Patient informed and he agrees also advised to discontinue PICC line after finish of antibiotics and he agrees Infectious disease consult Cardiothoracic surgery team consult Monitor creatinine and electrolytes Labs and medication were reviewed.. Continue same treatment. Continue with symptomatic treatment. Resume home medication. Monitor labs and vitals. DVT and GI prophylaxis. Further recommendations as per clinical course of the patient DVT prophylaxis: Subcutaneous heparin GI Prophylaxis: ppi PT/OT: Pending Prognosis is guarded
--- NOTE | 2025-01-18 14:46 | P.PN ---
Subjective Progress Note Date: 01/18/25 Principal diagnosis: Reason for follow-up is MRSA sternal wound infection and MRSA bacteremia Patient is a 75-year-old male with a past medical history significant for coronary artery disease atrial fibrillation hypertension hyperlipidemia renal disease in this patient who is status post coronary artery bypass grafting in July 2023 as well as mitral and is cuspid valve repair patient presenting to the hospital concerning for wound to the lower sternal area that apparently has been there for 3 to 4 months with recent culture positive for MRSA patient did have a CT without contrast did not mention any abscess. On today's evaluation that is 01/18/2025, the patient continues to be afebrile, the patient is on room air and breathing comfortably, the Pt denies having any chest pain or cough, the patient denies having any abdominal pain no vomiting or any diarrhea patient mention pain to the lower end of the chest that is improving no further drainage. No new lab has been obtained today blood culture from 227 currently pending Objective - Vital Signs Vital signs: Vital Signs Temp 98 F 01/18/25 13:49 Pulse 63 01/18/25 13:49 Resp 18 01/18/25 13:49 BP 112/73 01/18/25 13:49 Pulse Ox 100 01/18/25 13:49 FiO2 Intake & Output 01/17/25 01/18/25 01/18/25 18:59 06:59 18:59 Weight 47.627 kg Other: Voiding Method Toilet Toilet # Voids 3 4 - Exam GENERAL DESCRIPTION: An elderly male lying in bed in no distress RESPIRATORY SYSTEM: Unlabored breathing , decreased breath sounds at bases HEART: S1 S2 regular rate and rhythm , ABDOMEN: Soft , no tenderness EXTREMITIES: No edema feet - Labs CBC & Chem 7: 01/16/25 03:17 01/16/25 03:17 Labs: Microbiology - Last 24 Hours (Table) 01/17/25 04:25 Blood Culture - Preliminary Blood 01/15/25 14:46 Blood Culture Gram Stain - Final Blood Blood Culture - Final Methicillin resist S. aureus Molecular ID Assessment and Plan (1) Sternal osteomyelitis Current Visit: Yes Status: Acute Code(s): M86.9 - OSTEOMYELITIS, UNSPECIFIED SNOMED Code(s): 073505798 (2) MRSA (methicillin resistant Staphylococcus aureus) infection Current Visit: Yes Status: Acute Code(s): A49.02 - METHICILLIN RESIS STAPH INFECTION, UNSP SITE SNOMED Code(s): 901292962 (3) Wound dehiscence, surgical Current Visit: Yes Status: Acute Code(s): T81.31XA - DISRUPTION OF EXTERNAL OPERATION (SURGICAL) WOUND, NEC, INIT SNOMED Code(s): 269286403 (4) Bacteremia due to methicillin resistant Staphylococcus aureus Current Visit: Yes Status: Acute Code(s): R78.81 - BACTEREMIA; B95.62 - METHICILLIN RESIS STAPH INFCT CAUSING DISEASES CLASSD ELSWHR SNOMED Code(s): 08777792405460445 Plan: 1patient presented to hospital with a chronic nonhealing wound to the lower end of the sternal and this patient symptom almost for 3 to 4 months with recent culture obtained on 01/06/2025 that was positive for MRSA with high clinical suspicion for possible sternal osteomyelitis/abscess. 2patient with solitary kidney elevated creatinine high risk of nephrotoxicity from vancomycin which has been discontinued 3patient did have CT of the sternal area did not show any abscess however the patient has developed MRSA bacteremia likely concerning for deep infection 4patient blood culture has been repeated 01/17/2025 which are negative so far if the blood culture remain to be negative by tomorrow and he will be able to get a PICC line for outpatient IV daptomycin duration will be 4 to 6 weeks with concern for deep infection necrotic patient follow-up Dictation was produced using [employer] dictation software. please excuse any grammatical, word or spelling errors. Time with Patient: Less than 30
--- NOTE | 2025-01-18 14:46 | P.PN ---
Subjective Progress Note Date: 01/17/25 Principal diagnosis: Reason for follow-up is MRSA sternal wound infection and MRSA bacteremia Patient is a 75-year-old male with a past medical history significant for coronary artery disease atrial fibrillation hypertension hyperlipidemia renal disease in this patient who is status post coronary artery bypass grafting in July 2023 as well as mitral and is cuspid valve repair patient presenting to the hospital concerning for wound to the lower sternal area that apparently has been there for 3 to 4 months with recent culture positive for MRSA patient did have a CT without contrast did not mention any abscess. On today's evaluation that is 01/17/2025,the patient remains to be afebrile, patient is on room air not requiring supplemental oxygen and denies any shortness of breath no chest pain or cough.Patient denies having any nausea or vomiting, no abdominal pain and no diarrhea no new symptoms feeling better wants to go home. No new lab has been obtained today blood cultures came back positive with MRSA Objective - Vital Signs Vital signs: Vital Signs Temp 97.8 F 01/17/25 07:14 Pulse 52 L 01/17/25 07:14 Resp 20 01/17/25 07:14 BP 107/59 01/17/25 07:14 Pulse Ox 98 01/17/25 07:14 FiO2 Intake & Output 01/16/25 01/17/25 01/17/25 18:59 06:59 18:59 Weight 47.627 kg Other: Voiding Method Toilet Toilet # Voids 3 6 # Bowel Movements 1 - Exam GENERAL DESCRIPTION: An elderly male lying in bed in no distress RESPIRATORY SYSTEM: Unlabored breathing , decreased breath sounds at bases HEART: S1 S2 regular rate and rhythm , ABDOMEN: Soft , no tenderness EXTREMITIES: No edema feet - Labs CBC & Chem 7: 01/16/25 03:17 01/16/25 03:17 Labs: Microbiology - Last 24 Hours (Table) 01/15/25 14:46 Blood Culture Gram Stain - Preliminary Blood Blood Culture - Preliminary Presumptive MRSA Molecular ID Assessment and Plan (1) Sternal osteomyelitis Current Visit: Yes Status: Acute Code(s): M86.9 - OSTEOMYELITIS, UNSPECIFIED SNOMED Code(s): 073542716 (2) MRSA (methicillin resistant Staphylococcus aureus) infection Current Visit: Yes Status: Acute Code(s): A49.02 - METHICILLIN RESIS STAPH INFECTION, UNSP SITE SNOMED Code(s): 923416421 (3) Wound dehiscence, surgical Current Visit: Yes Status: Acute Code(s): T81.31XA - DISRUPTION OF EXTERNAL OPERATION (SURGICAL) WOUND, NEC, INIT SNOMED Code(s): 148439065 (4) Bacteremia due to methicillin resistant Staphylococcus aureus Current Visit: Yes Status: Acute Code(s): R78.81 - BACTEREMIA; B95.62 - METHICILLIN RESIS STAPH INFCT CAUSING DISEASES CLASSD ELSWHR SNOMED Code(s): 45726556638306171 Plan: 1patient presented to hospital with a chronic nonhealing wound to the lower end of the sternal and this patient symptom almost for 3 to 4 months with recent culture obtained on 01/06/2025 that was positive for MRSA with high clinical suspicion for possible sternal osteomyelitis/abscess. 2patient with solitary kidney elevated creatinine high risk of nephrotoxicity from vancomycin which has been discontinued 3patient did have CT of the sternal area did not show any abscess however the patient has developed MRSA bacteremia likely concerning for deep infection 4patient blood culture has been repeated we will make sure blood culture negative before ordering a PICC line for outpatient IV antibiotic therapy this was explained to the patient in layman term continue with the daptomycin Dictation was produced using [employer] dictation software. please excuse any grammatical, word or spelling errors. Time with Patient: Less than 30
[2025-01-18] MEDS ORDERED: ZINC OXIDE PASTE (Z-GUARD) 1 APPLIC TOPICAL PRN (18:51)
--- NOTE | 2025-01-19 15:31 | P.PN ---
Progress Note - Text Interval History: This is a pleasant 75 years old male with history of nicotine dependence, still smoking and CHF. Patient came to the hospital about 8 days ago for chest pain found to have lower sternal wound, culture sent showing MRSA however patient signed AMA. He went to see his PCP Dr. Holloway yesterday for follow-up appointment still complaining from chest pain. He referred him to the hospital Patient denies any GI/ symptoms. He still feels little short of breath and due to coughing. No headache dizziness. No limb weakness or tingling His MAC 1 pack/day and he was counseled to quit and he is not sure but he agrees to the nicotine patch. He declines alcohol or illicit drugs. Vital stable and afebrile except for mild bradycardia which is asymptomatic. Labs are unremarkable with WBC 10.5 and 6.3, hemoglobin stable at 11.1. Creatinine chronically elevated 1.6-1.5 which looks like baseline since last year although it fluctuates times 1.01.2 01/16 Patient presents with left sternal wound secondary to MRSA at the lower end. No other new complaint. Chest pain controlled Patient had CT scanning of the chest which I reviewed showing postsurgical changes from the lower sternotomy with mild skin thickening along its inferior aspect. There is no mention of abscess or fluid collection Patient currently covered with IV daptomycin. Given his elevated creatinine at 1.6 which is baseline. Patient has evidence of chronic kidney disease with baseline creatinine 1.5-1 0.6-1.8. Low potassium has been replaced Continue with aspirin Labs reviewed, ESR is mildly elevated 26 but CRP is elevated 8.1 Hemoglobin 10.1 and sodium 131 01/17 Patient blood culture positive for presumptive MRSA most likely from his lower sternal wound which was also infected with MRSA Patient currently covered with IV daptomycin Cardiothoracic surgery team recommended no surgical intervention but follow-up outpatient Patient will require PICC line after finalizing a blood culture per ID team. We will discuss with IV team if we can place the PICC line earlier today. Patient eager to go home. Patient denies chest pain dyspnea or any other new complaint Plan discussed with staff 01/18 Patient feels improved, he is walking in his room with no symptoms. He still been treated for his wound in the lower EXTR now with secondary to MRSA infection associated with presumptive MRSA bacteremia. His blood culture is not final once finalized patient will be placed on PICC line for outpatient IV antibiotics as per recommendation of infectious disease team will follow closely as well. Patient currently on IV daptomycin Assessment and plan: Lower sternal wound infection secondary to MRSA MRSA bacteremia Wound dehiscence: Recent history of CABG in reference to his coronary artery disease. Rule out infection Nicotine dependence Exertional dyspnea and coughing related to acute CHF exacerbation Diabetes mellitus Hypertension Hyperlipidemia History of GERD Chronic kidney disease Chronic diastolic CHF: Plan: Continue with IV daptomycin plan for PICC line after blood culture finalize for outpatient IV antibiotic. Patient informed and he agrees also advised to discontinue PICC line after finish of antibiotics and he agrees Infectious disease consulted Cardiothoracic surgery team consult CT chest showed no abscess. Monitor creatinine and electrolytes Continue home meds including diuretics metolazone, Lasix, aspirin. DVT prophylaxis: Subtenons heparin Monitor vital signs and labs Labs and medication were reviewed. Continue same treatment. Further recommendations as per clinical course of the patient PHYSICAL EXAMINATION: GENERAL: The patient is A&O x3, NAD HEENT: EOMI, Sclerae anicteric, Moist Mucous membranes Neck: Supple, Non tender, No JVD PULMONARY: Equal breath souds B/L, No wheezing, No crackles. CARDIOVASCULAR: S1, S2 present. No murmurs, rubs, or gallops. ABDOMEN: Soft, nontender, nondistended, normoactive bowel sounds. No guarding or rebound tenderness. MUSCULOSKELETAL: No edema, No cyanosis. No clubbing. Normal ROM. Intact peripheral pulses. NEUROLOGICAL: CN 2-12 grossly intact. No FND Skin: No Rash REVIEW OF SYSTEMS: CONSTITUTIONAL: No fever or chills. CARDIOVASCULAR: No chest pain, palpitations or syncope. PULMONARY: No shortness of breath, no cough, sore throat. GASTROINTESTINAL: No nausea, vomiting, diarrhea, abdominal pain. : No Dysuria, urgency, frequency. Extremities: No edema. NEUROLOGICAL: No headaches, no weakness, or numbness Dictation was produced using [employer] software. please excuse any grammatical, word or spelling errors.
[2025-01-20 06:46] LABS: African American GFR (CKD) 39 (>60 ml/min/1.73 sqM); Non-African American GFR(CKD) 34 (>60 ml/min/1.73 sqM)
--- NOTE | 2025-01-20 13:34 | P.PN ---
Subjective Progress Note Date: 01/20/25 Interval History: This is a pleasant 75 years old male with history of nicotine dependence, still smoking and CHF. Patient came to the hospital about 8 days ago for chest pain found to have lower sternal wound, culture sent showing MRSA however patient signed AMA. He went to see his PCP Dr. Holloway yesterday for follow-up appointment still complaining from chest pain. He referred him to the hospital Patient denies any GI/ symptoms. He still feels little short of breath and due to coughing. No headache dizziness. No limb weakness or tingling His MAC 1 pack/day and he was counseled to quit and he is not sure but he agrees to the nicotine patch. He declines alcohol or illicit drugs. Vital stable and afebrile except for mild bradycardia which is asymptomatic. Labs are unremarkable with WBC 10.5 and 6.3, hemoglobin stable at 11.1. Creatinine chronically elevated 1.6-1.5 which looks like baseline since last year although it fluctuates times 1.01.2 01/16 Patient presents with left sternal wound secondary to MRSA at the lower end. No other new complaint. Chest pain controlled Patient had CT scanning of the chest which I reviewed showing postsurgical changes from the lower sternotomy with mild skin thickening along its inferior aspect. There is no mention of abscess or fluid collection Patient currently covered with IV daptomycin. Given his elevated creatinine at 1.6 which is baseline. Patient has evidence of chronic kidney disease with baseline creatinine 1.5-1 0.6-1.8. Low potassium has been replaced Continue with aspirin Labs reviewed, ESR is mildly elevated 26 but CRP is elevated 8.1 Hemoglobin 10.1 and sodium 131 01/17 Patient blood culture positive for presumptive MRSA most likely from his lower sternal wound which was also infected with MRSA Patient currently covered with IV daptomycin Cardiothoracic surgery team recommended no surgical intervention but follow-up outpatient Patient will require PICC line after finalizing a blood culture per ID team. We will discuss with IV team if we can place the PICC line earlier today. Patient eager to go home. Patient denies chest pain dyspnea or any other new complaint Plan discussed with staff 01/18 Patient feels improved, he is walking in his room with no symptoms. He still been treated for his wound in the lower EXTR now with secondary to MRSA infection associated with presumptive MRSA bacteremia. His blood culture is not final once finalized patient will be placed on PICC line for outpatient IV antibiotics as per recommendation of infectious disease team will follow closely as well. Patient currently on IV daptomycin 01/19--- patient was seen and examined today. No issues overnight. Pain is controlled. Vital stable. On IV daptomycin. Discussed with infectious disease, recommended to continue IV daptomycin, PICC line ordered, awaiting home antibiotics set up and PICC line placement. 01/20--patient was seen and examined today, no issues overnight. Pain is controlled. Afebrile, heart rate 59, respiratory rate 17, blood pressure 103/65, saturating 97% on room air. No new labs from today. Remains on daptomycin. PICC line ordered, awaiting placement. Awaiting home antibiotics set up. Assessment and plan: Lower sternal wound infection secondary to MRSA MRSA bacteremia Wound dehiscence: Recent history of CABG in reference to his coronary artery disease. Rule out infection Nicotine dependence Exertional dyspnea and coughing related to acute CHF exacerbation Diabetes mellitus Hypertension Hyperlipidemia History of GERD Chronic kidney disease Chronic diastolic CHF: Plan: Continue with IV daptomycin plan for PICC line after blood culture finalize for outpatient IV antibiotic. Patient informed and he agrees also advised to discontinue PICC line after finish of antibiotics and he agrees Infectious disease consulted Cardiothoracic surgery team consult CT chest showed no abscess. Monitor creatinine and electrolytes Continue home meds including diuretics metolazone, Lasix, aspirin. DVT prophylaxis: Subtenons heparin Monitor vital signs and labs Labs and medication were reviewed. Continue same treatment. Further recommendations as per clinical course of the patient PHYSICAL EXAMINATION: GENERAL: The patient is A&O x3, NAD HEENT: EOMI, Sclerae anicteric, Moist Mucous membranes Neck: Supple, Non tender, No JVD PULMONARY: Equal breath souds B/L, No wheezing, No crackles. CARDIOVASCULAR: S1, S2 present. No murmurs, rubs, or gallops. ABDOMEN: Soft, nontender, nondistended, normoactive bowel sounds. No guarding or rebound tenderness. MUSCULOSKELETAL: No edema, No cyanosis. No clubbing. Normal ROM. Intact peripheral pulses. NEUROLOGICAL: CN 2-12 grossly intact. No FND Skin: No Rash REVIEW OF SYSTEMS: CONSTITUTIONAL: No fever or chills. CARDIOVASCULAR: No chest pain, palpitations or syncope. PULMONARY: No shortness of breath, no cough, sore throat. GASTROINTESTINAL: No nausea, vomiting, diarrhea, abdominal pain. : No Dysuria, urgency, frequency. Extremities: No edema. NEUROLOGICAL: No headaches, no weakness, or numbness Dictation was produced using [employer] dictation software. please excuse any grammatical, word or spelling errors. Objective - Vital Signs Vital signs: Vital Signs Temp 97.8 F 01/20/25 07:35 Pulse 59 L 01/20/25 07:35 Resp 17 01/20/25 07:35 BP 103/65 01/20/25 07:35 Pulse Ox 97 01/20/25 07:35 FiO2 Intake & Output 01/19/25 01/20/25 01/20/25 18:59 06:59 18:59 Other: Voiding Method Toilet # Voids 2 3 # Bowel Movements 1 - Labs CBC & Chem 7: 01/16/25 03:17 01/20/25 06:00 Labs: Abnormal Lab Results - Last 24 Hours (Table) 01/20/25 Range/Units 06:00 Creatinine 1.88 H (0.66-1.25) mg/dL Microbiology - Last 24 Hours (Table) 01/17/25 04:25 Blood Culture - Preliminary Blood
--- NOTE | 2025-01-20 15:09 | P.PN ---
Subjective Progress Note Date: 01/19/25 Principal diagnosis: Reason for follow-up is MRSA sternal wound infection and MRSA bacteremia Patient is a 75-year-old male with a past medical history significant for coronary artery disease atrial fibrillation hypertension hyperlipidemia renal disease in this patient who is status post coronary artery bypass grafting in July 2023 as well as mitral and is cuspid valve repair patient presenting to the hospital concerning for wound to the lower sternal area that apparently has been there for 3 to 4 months with recent culture positive for MRSA patient did have a CT without contrast did not mention any abscess. On today's evaluation that is 01/19/2025, patient did not have any fever and denies any chills, patient is breathing comfortably on room air, patient with no chest pain or cough patient did not have any abdominal pain nausea vomiting or any loose stools. No new lab has been obtained today blood culture repeat pending Objective - Vital Signs Vital signs: Vital Signs Temp 98.2 F 01/19/25 07:22 Pulse 63 01/19/25 07:22 Resp 18 01/19/25 07:22 BP 113/75 01/19/25 07:22 Pulse Ox 99 01/19/25 07:22 FiO2 Intake & Output 01/18/25 01/19/25 01/19/25 18:59 06:59 18:59 Other: Voiding Method Toilet # Voids 3 2 - Exam GENERAL DESCRIPTION: An elderly male lying in bed in no distress RESPIRATORY SYSTEM: Unlabored breathing , decreased breath sounds at bases HEART: S1 S2 regular rate and rhythm , ABDOMEN: Soft , no tenderness EXTREMITIES: No edema feet - Labs CBC & Chem 7: 01/16/25 03:17 01/20/25 06:00 Labs: Microbiology - Last 24 Hours (Table) 01/17/25 04:25 Blood Culture - Preliminary Blood 01/15/25 14:46 Blood Culture Gram Stain - Final Blood Blood Culture - Final Methicillin resist S. aureus Molecular ID Assessment and Plan (1) Sternal osteomyelitis Current Visit: Yes Status: Acute Code(s): M86.9 - OSTEOMYELITIS, UNSPECIFIED SNOMED Code(s): 914925748 (2) MRSA (methicillin resistant Staphylococcus aureus) infection Current Visit: Yes Status: Acute Code(s): A49.02 - METHICILLIN RESIS STAPH INFECTION, UNSP SITE SNOMED Code(s): 190578261 (3) Wound dehiscence, surgical Current Visit: Yes Status: Acute Code(s): T81.31XA - DISRUPTION OF EXTERNAL OPERATION (SURGICAL) WOUND, NEC, INIT SNOMED Code(s): 692483873 (4) Bacteremia due to methicillin resistant Staphylococcus aureus Current Visit: Yes Status: Acute Code(s): R78.81 - BACTEREMIA; B95.62 - METHICILLIN RESIS STAPH INFCT CAUSING DISEASES CLASSD ELSWHR SNOMED Code(s): 37605982937643721 Plan: 1patient presented to hospital with a chronic nonhealing wound to the lower end of the sternal and this patient symptom almost for 3 to 4 months with recent culture obtained on 01/06/2025 that was positive for MRSA with high clinical suspicion for possible sternal osteomyelitis/abscess. 2patient with solitary kidney elevated creatinine high risk of nephrotoxicity from vancomycin which has been discontinued 3patient did have CT of the sternal area did not show any abscess however the patient has developed MRSA bacteremia likely concerning for deep infection 4patient blood culture has been repeated 01/17/2025 which are negative so far, PICC line has been ordered continue with the daptomycin Dictation was produced using [employer] dictation software. please excuse any grammatical, word or spelling errors. Time with Patient: Less than 30
--- NOTE | 2025-01-20 15:10 | P.PN ---
Subjective Progress Note Date: 01/20/25 Principal diagnosis: Reason for follow-up is MRSA sternal wound infection and MRSA bacteremia Patient is a 75-year-old male with a past medical history significant for coronary artery disease atrial fibrillation hypertension hyperlipidemia renal disease in this patient who is status post coronary artery bypass grafting in July 2023 as well as mitral and is cuspid valve repair patient presenting to the hospital concerning for wound to the lower sternal area that apparently has been there for 3 to 4 months with recent culture positive for MRSA patient did have a CT without contrast did not mention any abscess. On today's evaluation that is 01/20/2025, Patient is afebrile patient is currently on room air and denies having any shortness of breath, the patient denies any chest pain or cough, the patient denies any nausea vomiting did not have any abdominal pain and no diarrhea. Patient did have a creatinine 1.88 blood culture repeat has been negative Objective - Vital Signs Vital signs: Vital Signs Temp 98 F 01/20/25 14:16 Pulse 72 01/20/25 14:16 Resp 17 01/20/25 14:16 BP 101/69 01/20/25 14:16 Pulse Ox 99 01/20/25 14:16 FiO2 Intake & Output 01/19/25 01/20/25 01/20/25 18:59 06:59 18:59 Other: Voiding Method Toilet # Voids 2 3 # Bowel Movements 1 - Exam GENERAL DESCRIPTION: An elderly male lying in bed in no distress RESPIRATORY SYSTEM: Unlabored breathing , decreased breath sounds at bases HEART: S1 S2 regular rate and rhythm , ABDOMEN: Soft , no tenderness EXTREMITIES: No edema feet - Labs CBC & Chem 7: 01/16/25 03:17 01/20/25 06:00 Labs: Abnormal Lab Results - Last 24 Hours (Table) 01/20/25 Range/Units 06:00 Creatinine 1.88 H (0.66-1.25) mg/dL Microbiology - Last 24 Hours (Table) 01/17/25 04:25 Blood Culture - Preliminary Blood Assessment and Plan (1) Sternal osteomyelitis Current Visit: Yes Status: Acute Code(s): M86.9 - OSTEOMYELITIS, UNSPECIFIED SNOMED Code(s): 646796815 (2) MRSA (methicillin resistant Staphylococcus aureus) infection Current Visit: Yes Status: Acute Code(s): A49.02 - METHICILLIN RESIS STAPH I NFECTION, UNSP SITE SNOMED Code(s): 138868178 (3) Wound dehiscence, surgical Current Visit: Yes Status: Acute Code(s): T81.31XA - DISRUPTION OF EXTERNAL OPERATION (SURGICAL) WOUND, NEC, INIT SNOMED Code(s): 758872895 (4) Bacteremia due to methicillin resistant Staphylococcus aureus Current Visit: Yes Status: Acute Code(s): R78.81 - BACTEREMIA; B95.62 - METHICILLIN RESIS STAPH INFCT CAUSING DISEASES CLASSD ELSWHR SNOMED Code(s): 08518135457924989 Plan: 1patient presented to hospital with a chronic nonhealing wound to the lower end of the sternal and this patient symptom almost for 3 to 4 months with recent culture obtained on 01/06/2025 that was positive for MRSA with high clinical susp icion for possible sternal osteomyelitis/abscess. 2patient with solitary kidney elevated creatinine high risk of nephrotoxicity from vancomycin which has been discontinued 3patient did have CT of the sternal area did not show any abscess however the patient has developed MRSA bacteremia likely concerning for deep infection 4patient blood culture has been repeated 01/17/2025 which are negative so far, PICC line has been ordered hopefully will be placed in the morning and so once daptomycin arranged to be able to go home from ID standpoint prescriptions already provided to the caseworker protective services on Tuesday Dictation was produced using [employer] software. please excuse any grammatical, word or spelling errors.
--- NOTE | 2025-01-21 11:25 | P.NPCON ---
History of Present Illness - Reason for Consult chronic renal failure - History of Present Illness Patient is a 75-year-old male who was admitted to the hospital with sternal wound infection secondary to MRSA. History of coronary artery bypass surgery in July 2023. Patient needs clearance for PICC line placement for outpatient antibiotics. Serum creatinine was 1.6 mg/dL on admission and has increased to 1.8 today. Prior creatinine was 1.6 on 01/05/2025 and 1.8 on 05/04/2024. We have another creatinine of 1.0 on 05/03/2024. It looks like patient had an acute kidney injury in April 2024. Blood pressure has been on the lower side recently with systolic ranging from 99 to 103 mmHg next Currently maintained on daptomycin. Patient has received 2 doses of vancomycin, trough was 9.5 on 01/16/2025 Lasix 40 mg daily noted. Patient states she has been voiding well. Past Medical History Past Medical History: Atrial Fibrillation, Coronary Artery Disease (CAD), GERD/Reflux, Hyperlipidemia, Hypertension, Renal Disease Additional Past Medical History / Comment(s): Mitral regurgitation; abdominal aortic aneurysm History of Any Multi-Drug Resistant Organisms: MRSA Date of last positivie culture/infection: 01/06/25 MDRO Source:: chest Past Surgical History: Coronary Bypass/CABG, Heart Catheterization, Hernia Repair Additional Past Surgical History / Comment(s): three-vessel CABG with mitral valve repair 07/27/2023 Past Anesthesia/Blood Transfusion Reactions: No Reported Reaction Additional Past Anesthesia/Blood Transfusion Reaction / Comment(s): no problems with prior blood transfusions last transfused 04-06-24/04-07-24 (total 3 units) Type of Cardiac Device: Permanent Pacemaker Device Placement Date:: 08/03/2023 [employer] Past Psychological History: Depression Smoking Status: Current every day smoker Past Alcohol Use History: None Reported Additional Past Alcohol Use History / Comment(s): STARTED SMOKING AT AGE 15 QUIT ON AND OFF AND CURRENTLY SMOKING , SMOKES 1 PPD Past Drug Use History: None Reported - Past Family History Father Family Medical History: Myocardial Infarction (PA) Additional Family Medical History / Comment(s): at age 90 from a myocardial infarction Mother Family Medical History: Cancer (Brain tumor) Medications and Allergies Home Medications Medication Instructions Recorded Confirmed Type Citalopram Hydrobromide [CeleXA] 20 mg PO DAILY 03/07/18 01/14/25 History Cholecalciferol [Vitamin D3 (25 50 mcg PO W/LUNCH 12/11/21 01/14/25 History Mcg = 1000 Iu)] Acetaminophen Tab [Tylenol] 650 mg PO Q4HR PRN tab 08/08/23 01/14/25 Rx clonazePAM [KlonoPIN] 0.5 mg PO HS 08/29/23 01/14/25 History Atorvastatin [Lipitor] 20 mg PO HS 09/14/23 01/14/25 History Ferrous Sulfate [Iron (65 MG 650 mg PO W/LUNCH 10/10/23 01/14/25 History Elemental)] Metoprolol Tartrate [Lopressor] 12.5 mg PO BID 10/10/23 01/14/25 History Aspirin EC [Ecotrin Low Dose] 81 mg PO DAILY 04/06/24 01/14/25 History Lactulose 10 gm PO BID 04/06/24 01/14/25 History metOLazone [Zaroxolyn] 2.5 mg PO MOWEFR 04/06/24 01/14/25 History Ascorbic Acid [Vitamin C] 500 mg PO DAILY 05/01/24 01/14/25 History Furosemide [Lasix] 40 mg PO DAILY 05/01/24 01/14/25 History Pantoprazole Sodium [Protonix] 40 mg PO DAILY 05/01/24 01/14/25 History Potassium Chloride [Klor-Con M20] 20 meq PO DAILY 05/01/24 01/14/25 History Cyproheptadine [Cyproheptadine HCl] 2 mg PO TID PRN 01/06/25 01/14/25 History Linaclotide [Linzess] 72 mcg PO DAILY 01/06/25 01/14/25 History Allergies Allergy/AdvReac Type Severity Reaction Status Date / Time No Known Allergies Allergy Verified 01/14/25 17:10 Physical Exam Vitals: Vital Signs Temp Pulse Resp BP Pulse Ox 01/21/25 07:11 98.0 F 71 17 101/65 98 01/21/25 00:45 98.3 F 58 L 19 109/65 01/20/25 14:16 98 F 72 17 101/69 99 Intake and Output 01/20/25 01/21/25 01/21/25 22:59 06:59 14:59 Other: # Voids 3 2 Patient is awake, comfortable, no acute distress. 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 Acute kidney injury most likely associated with low blood pressure and po ssible volume depletion. I will hold diuretics. Check bladder scan rule out urine retention. 2. Previous episodes of acute kidney injury in May 2024 and possibly in December 2024. Previous creatinine 1.6 on 01/05/2025. 3. Sternal wound infection with MRSA maintained on daptomycin Plan: DC Lasix Add gentle IV hydration Okay to proceed with PICC line in dominant arm Check bladder scan rule out urine retention. Thank you for the consultation. We will continue to follow the patient with you during his hospitalization.
[2025-01-21] MEDS: SODIUM CHLORIDE 0.9% 500 ML 500 ML IV ONE (11:41)
[2025-01-21] MEDS: SODIUM CHLORIDE 0.9% 500 ML 500 ML IV SCH (12:49)
--- NOTE | 2025-01-21 13:59 | P.PN ---
Subjective Interval History: This is a pleasant 75 years old male with history of nicotine dependence, still smoking and CHF. Patient came to the hospital about 8 days ago for chest pain found to have lower sternal wound, culture sent showing MRSA however patient signed AMA. He went to see his PCP Dr. Holloway yesterday for follow-up appointment still complaining from chest pain. He referred him to the hospital Patient denies any GI/ symptoms. He still feels little short of breath and due to coughing. No headache dizziness. No limb weakness or tingling His MAC 1 pack/day and he was counseled to quit and he is not sure but he agrees to the nicotine patch. He declines alcohol or illicit drugs. Vital stable and afebrile except for mild bradycardia which is asymptomatic. Labs are unremarkable with WBC 10.5 and 6.3, hemoglobin stable at 11.1. Creatinine chronically elevated 1.6-1.5 which looks like baseline since last year although it fluctuates times 1.01.2 01/16 Patient presents with left sternal wound secondary to MRSA at the lower end. No other new complaint. Chest pain controlled Patient had CT scanning of the chest which I reviewed showing postsurgical changes from the lower sternotomy with mild skin thickening along its inferior a spect. There is no mention of abscess or fluid collection Patient currently covered with IV daptomycin. Given his elevated creatinine at 1.6 which is baseline. Patient has evidence of chronic kidney disease with baseline creatinine 1.5-1 0.6-1.8. Low potassium has been replaced Continue with aspirin Labs reviewed, ESR is mildly elevated 26 but CRP is elevated 8.1 Hemoglobin 10.1 and sodium 131 01/17 Patient blood culture positive for presumptive MRSA most likely from his lower sternal wound which was also infected with MRSA Patient currently covered with IV daptomycin Cardiothoracic surgery team recommended no surgical intervention but follow-up outpatient Patient will require PICC line after finalizing a blood culture per ID team. We will discuss with IV team if we can place the PICC line earlier today. Patient eager to go home. Patient denies chest pain dyspnea or any other new complaint Plan discussed with staff 01/18 Patient feels improved, he is walking in his room with no symptoms. He still been treated for his wound in the lower EXTR now with secondary to MRSA infection associated with presumptive MRSA bacteremia. His blood culture is not final once finalized patient will be placed on PICC line for outpatient IV antibiotics as per recommendation of infectious disease team will follow closely as well. Patient currently on IV daptomycin 01/19--- patient was seen and examined today. No issues overnight. Pain is controlled. Vital stable. On IV daptomycin. Discussed with infectious disease, recommended to continue IV daptomycin, PICC line ordered, awaiting home antibiotics set up and PICC line placement. 01/20--patient was seen and examined today, no issues overnight. Pain is controlled. Afebrile, heart rate 59, respiratory rate 17, blood pressure 1 65, saturating 97% on room air. No new labs from today. Remains on daptomycin. PICC line ordered, awaiting placement. Awaiting home antibiotics set up. 01/21--patient was seen and examined today. No issues overnight. Vital stable. Awaiting PICC line placement and home antibiotics set up prior to discharge. Assessment and plan: Lower sternal wound infection secondary to MRSA MRSA bacteremia Wound dehiscence: Recent history of CABG in reference to his coronary artery disease. Rule out infection Nicotine dependence Exertional dyspnea and coughing related to acute CHF exacerbation Diabetes mellitus Hypertension Hyperlipidemia History of GERD Chronic kidney disease Chronic diastolic CHF: Plan: Continue with IV daptomycin plan for PICC line after blood culture finalize for outpatient IV antibiotic. Patient informed and he agrees also advised to discontinue PICC line after finish of antibiotics and he agrees Infectious disease consulted Cardiothoracic surgery team consult CT chest showed no abscess. Monitor creatinine and electrolytes Continue home meds including diuretics metolazone, Lasix, aspirin. DVT prophylaxis: Subtenons heparin Monitor vital signs and labs Labs and medication were reviewed. Continue same treatment. Further recommendations as per clinical course of the patient PHYSICAL EXAMINATION: GENERAL: The patient is A&O x3, NAD HEENT: EOMI, Sclerae anicteric, Moist Mucous membranes Neck: Supple, Non tender, No JVD PULMONARY: Equal breath souds B/L, No wheezing, No crackles. CARDIOVASCULAR: S1, S2 present. No murmurs, rubs, or gallops. ABDOMEN: Soft, nontender, nondistended, normoactive bowel sounds. No guarding or rebound tenderness. MUSCULOSKELETAL: No edema, No cyanosis. No clubbing. Normal ROM. Intact peripher al pulses. NEUROLOGICAL: CN 2-12 grossly intact. No FND Skin: No Rash REVIEW OF SYSTEMS: CONSTITUTIONAL: No fever or chills. CARDIOVASCULAR: No chest pain, palpitations or syncope. PULMONARY: No shortness of breath, no cough, sore throat. GASTROINTESTINAL: No nausea, vomiting, diarrhea, abdominal pain. : No Dysuria, urgency, frequency. Extremities: No edema. NEUROLOGICAL: No headaches, no weakness, or numbness Dictation was produced using [employer] dictation software. please excuse any grammatical, word or spelling errors. Objective - Vital Signs Vital signs: Vital Signs Temp 98.0 F 01/21/25 07:11 Pulse 71 01/21/25 07:11 Resp 17 01/21/25 07:11 BP 101/65 01/21/25 07:11 Pulse Ox 98 01/21/25 07:11 FiO2 Intake & Output 01/20/25 01/21/25 01/21/25 18:59 06:59 18:59 Other: # Voids 3 2 - Labs CBC & Chem 7: 01/16/25 03:17 01/20/25 06:00 Labs: Microbiology - Last 24 Hours (Table) 01/17/25 04:25 Blood Culture - Preliminary Blood
--- NOTE | 2025-01-21 14:04 | P.DS ---
Providers Date of admission: 01/14/25 17:20 Attending physician: Oumar Oliva MD Consults: 01/14/25 16:38 Consult Physician Urgent Consulting Provider: Juventino Giordano Consult Reason/Comments: Dehiscence of surgical incision with MRSA infection Do you want consulting provider notified?: Yes Consult Physician Urgent Consulting Provider: Patricia Zurita Consult Reason/Comments: Dehiscence of surgical incision with MRSA infection Do you want consulting provider notified?: Yes 01/21/25 08:36 Consult Physician Routine Consulting Provider: Omar Blue Consult Reason/Comments: Clearance for PICC line placement related to GFR results Do you want consulting provider notified?: Yes Primary care physician: Slim Holloway Hospital Course: Discharge diagnoses: Lower sternal wound infection secondary to MRSA MRSA bacteremia Wound dehiscence: Recent history of CABG in reference to his coronary artery disease. Rule out infection Nicotine dependence Exertional dyspnea and coughing related to acute CHF exacerbation Diabetes mellitus Hypertension Hyperlipidemia History of GERD Chronic kidney disease Chronic diastolic CHF: Plan: Continue with IV daptomycin plan for PICC line after blood culture finalize for outpatient IV antibiotic. Patient informed and he agrees also advised to discontinue PICC line after finish of antibiotics and he agrees Infectious disease consulted--- patient received daptomycin during hospitalization, infectious disease recommended to continue daptomycin for 4 weeks, PICC line placed prior to discharge. Cardiothoracic surgery team consult CT chest showed no abscess. Monitor creatinine and electrolytes Continue home meds including diuretics metolazone, Lasix, aspirin. Follow-up with PCP in 1 week Follow-up with infectious disease, weekly labs CBC ESR CRP BMP and CPK while on antibiotics. In 1 to 2 weeks Follow-up with cardiology and cardiac surgery as outpatient Hospital course: This is a pleasant 75 years old male with history of nicotine dependence, still smoking and CHF. Patient came to the hospital about 8 days ago for chest pain found to have lower sternal wound, culture sent showing MRSA however patient signed AMA. He went to see his PCP Dr. Holloway yesterday for follow-up appointment still complaining from chest pain. He referred him to the hospital Patient denies any GI/ symptoms. He still feels little short of breath and due to coughing. No headache dizziness. No limb weakness or tingling His MAC 1 pack/day and he was counseled to quit and he is not sure but he agrees to the nicotine patch. He declines alcohol or illicit drugs. Vital stable and afebrile except for mild bradycardia which is asymptomatic. Labs are unremarkable with WBC 10.5 and 6.3, hemoglobin stable at 11.1. Creatinine chronically elevated 1.6-1.5 which looks like baseline since last year although it fluctuates times 1.01.2 01/16 Patient presents with left sternal wound secondary to MRSA at the lower end. No other new complaint. Chest pain controlled Patient had CT scanning of the chest which I reviewed showing postsurgical changes from the lower sternotomy with mild skin thickening along its inferior aspect. There is no mention of abscess or fluid collection Patient currently covered with IV daptomycin. Given his elevated creatinine at 1.6 which is baseline. Patient has evidence of chronic kidney disease with bas evelyn creatinine 1.5-1 0.6-1.8. Low potassium has been replaced Continue with aspirin Labs reviewed, ESR is mildly elevated 26 but CRP is elevated 8.1 Hemoglobin 10.1 and sodium 131 01/17 Patient blood culture positive for presumptive MRSA most likely from his lower sternal wound which was also infected with MRSA Patient currently covered with IV daptomycin Cardiothoracic surgery team recommended no surgical intervention but follow-up outpatient Patient will require PICC line after finalizing a blood culture per ID team. We will discuss with IV team if we can place the PICC line earlier today. Patient eager to go home. Patient denies chest pain dyspnea or any other new complaint Plan discussed with staff 01/18 Patient feels improved, he is walking in his room with no symptoms. He still been treated for his wound in the lower EXTR now with secondary to MRSA infection associated with presumptive MRSA bacteremia. His blood culture is not final once finalized patient will be placed on PICC line for outpatient IV antibiotics as per recommendation of infectious disease team will follow closely as well. Patient currently on IV daptomycin 01/19--- patient was seen and examined today. No issues overnight. Pain is controlled. Vital stable. On IV daptomycin. Discussed with infectious disease, recommended to continue IV daptomycin, PICC line ordered, awaiting home antibiotics set up and PICC line placement. 01/20--patient was seen and examined today, no issues overnight. Pain is controlled. Afebrile, heart rate 59, respiratory rate 17, blood pressure 103/65, saturating 97% on room air. No new labs from today. Remains on daptomycin. PICC line ordered, awaiting placement. Awaiting home antibiotics set up. 01/21--patient was seen and examined today. No issues overnight. Vital stable. Patient going to be discharged home today after PICC line placement and home antibiotics set up prior to discharge. PHYSICAL EXAMINATION: GENERAL: The patient is A&O x3, NAD HEENT: EOMI, Sclerae anicteric, Moist Mucous membranes Neck: Supple, Non tender, No JVD PULMONARY: Equal breath souds B/L, No wheezing, No crackles. CARDIOVASCULAR: S1, S2 present. No murmurs, rubs, or gallops. ABDOMEN: Soft, nontender, nondistended, normoactive bowel sounds. No guarding or rebound tenderness. MUSCULOSKELETAL: No edema, No cyanosis. No clubbing. Normal ROM. Intact peripheral pulses. NEUROLOGICAL: CN 2-12 grossly intact. No FND SKIN: No rashes. Dictation was produced using [employer] dictation software. please excuse any grammatical, word or spelling errors. Patient Condition at Discharge: Fair Plan - Discharge Summary Discharge Rx Participant: No New Discharge Prescriptions: New DAPTOmycin [Cubicin] 300 mg IVPB Q48H each Continue Citalopram Hydrobromide [CeleXA] 20 mg PO DAILY Cholecalciferol [Vitamin D3 (25 Mcg = 1000 Iu)] 50 mcg PO W/LUNCH Acetaminophen Tab [Tylenol] 650 mg PO Q4HR PRN tab PRN Reason: Fever and/ or Mild Pain Metoprolol Tartrate [Lopressor] 12.5 mg PO BID Aspirin EC [Ecotrin Low Dose] 81 mg PO DAILY Potassium Chloride [Klor-Con M20] 20 meq PO DAILY clonazePAM [KlonoPIN] 0.5 mg PO HS Atorvastatin [Lipitor] 20 mg PO HS Ferrous Sulfate [Iron (65 MG Elemental)] 650 mg PO W/LUNCH Lactulose 10 gm PO BID metOLazone [Zaroxolyn] 2.5 mg PO MOWEFR Ascorbic Acid [Vitamin C] 500 mg PO DAILY Furosemide [Lasix] 40 mg PO DAILY Pantoprazole Sodium [Protonix] 40 mg PO DAILY Linaclotide [Linzess] 72 mcg PO DAILY Cyproheptadine [Cyproheptadine HCl] 2 mg PO TID PRN PRN Reason: apeptite Discharge Medication List Citalopram Hydrobromide [CeleXA] 20 mg PO DAILY 03/07/18 [History] Cholecalciferol [Vitamin D3 (25 Mcg = 1000 Iu)] 50 mcg PO W/LUNCH 12/11/21 [History] Acetaminophen Tab [Tylenol] 650 mg PO Q4HR PRN tab 08/08/23 [Rx] clonazePAM [KlonoPIN] 0.5 mg PO HS 08/29/23 [History] Atorvastatin [Lipitor] 20 mg PO HS 09/14/23 [History] Ferrous Sulfate [Iron (65 MG Elemental)] 650 mg PO W/LUNCH 10/10/23 [History] Metoprolol Tartrate [Lopressor] 12.5 mg PO BID 10/10/23 [History] Aspirin EC [Ecotrin Low Dose] 81 mg PO DAILY 04/06/24 [History] Lactulose 10 gm PO BID 04/06/24 [History] metOLazone [Zaroxolyn] 2.5 mg PO MOWEFR 04/06/24 [History] Ascorbic Acid [Vitamin C] 500 mg PO DAILY 05/01/24 [History] Furosemide [Lasix] 40 mg PO DAILY 05/01/24 [History] Pantoprazole Sodium [Protonix] 40 mg PO DAILY 05/01/24 [History] Potassium Chloride [Klor-Con M20] 20 meq PO DAILY 05/01/24 [History] Cyproheptadine [Cyproheptadine HCl] 2 mg PO TID PRN 01/06/25 [History] Linaclotide [Linzess] 72 mcg PO DAILY 01/06/25 [History] DAPTOmycin [Cubicin] 300 mg IVPB Q48H each 01/21/25 [Rx] Follow up Appointment(s)/Referral(s): Shama Giraldo MD [STAFF PHYSICIAN] - 3 Days (3-4 days after discharge for BMP/lab draw) [facility], [NON-STAFF] - As Needed Slim Holloway MD [Primary Care Provider] - 1-2 days [facility], [REFERRING] - As Needed [facility] [NON-STAFF] - 1 Week Patricia Zurita MD [STAFF PHYSICIAN] - 1 Week Discharge Disposition: HOME WITH HOME HEALTH SERVICES
[2025-01-21 14:53] VITALS: BP 100/62; PULSE 60; RESP 18; TEMP 97.7
--- NOTE | 2025-01-21 15:27 | P.PN ---
Subjective Progress Note Date: 01/21/25 Principal diagnosis: Reason for follow-up is MRSA sternal wound infection and MRSA bacteremia Patient is a 75-year-old male with a past medical history significant for coronary artery disease atrial fibrillation hypertension hyperlipidemia renal disease in this patient who is status post coronary artery bypass grafting in July 2023 as well as mitral and is cuspid valve repair patient presenting to the hospital concerning for wound to the lower sternal area that apparently has been there for 3 to 4 months with recent culture positive for MRSA patient did have a CT without contrast did not mention any abscess. On today's evaluation that is 01/21/2025, patient has been afebrile, patient is breathing comfortably and is currently on room air, patient denies having any significant cough no chest pain, patient denies nausea vomiting or diarrhea and no abdominal pain. Patient did have a creatinine 1.82 as of yesterday blood culture has been negative Objective - Vital Signs Vital signs: Vital Signs Temp 98.0 F 01/21/25 07:11 Pulse 71 01/21/25 07:11 Resp 17 01/21/25 07:11 BP 101/65 01/21/25 07:11 Pulse Ox 98 01/21/25 07:11 FiO2 Intake & Output 01/20/25 01/21/25 01/21/25 18:59 06:59 18:59 Other: # Voids 3 2 - Exam GENERAL DESCRIPTION: An elderly male lying in bed in no distress RESPIRATORY SYSTEM: Unlabored breathing , decreased breath sounds at bases HEART: S1 S2 regular rate and rhythm , ABDOMEN: Soft , no tenderness EXTREMITIES: No edema feet - Labs CBC & Chem 7: 01/16/25 03:17 01/20/25 06:00 Labs: Microbiology - Last 24 Hours (Table) 01/17/25 04:25 Blood Culture - Preliminary Blood Assessment and Plan (1) Sternal osteomyelitis Current Visit: Yes Status: Acute Code(s): M86.9 - OSTEOMYELITIS, UNSPECIFIED SNOMED Code(s): 894428882 (2) MRSA (methicillin resistant Staphylococcus aureus) infection Current Visit: Yes Status: Acute Code(s): A49.02 - METHICILLIN RESIS STAPH INFECTION, UNSP SITE SNOMED Code(s): 721217630 (3) Wound dehiscence, surgical Current Visit: Yes Status: Acute Code(s): T81.31XA - DISRUPTION OF EXTERNAL OPERATION (SURGICAL) WOUND, NEC, INIT SNOMED Code(s): 099057304 (4) Bacteremia due to methicillin resistant Staphylococcus aureus Current Visit: Yes Status: Acute Code(s): R78.81 - BACTEREMIA; B95.62 - MET HICILLIN RESIS STAPH INFCT CAUSING DISEASES CLASSD ELSWHR SNOMED Code(s): 28884852093386462 Plan: 1patient presented to hospital with a chronic nonhealing wound to the lower end of the sternal and this patient symptom almost for 3 to 4 months with recent culture obtained on 01/06/2025 that was positive for MRSA with high clinical suspicion for possible sternal osteomyelitis/abscess. 2patient with solitary kidney elevated creatinine high risk of nephrotoxicity from vancomycin which has been discontinued 3patient did have CT of the sternal area did not show any abscess however the patient has developed MRSA bacteremia likely concerning for deep infection 4patient blood culture has been repeated 01/17/2025 which are negative so far, currently waiting for PICC line placement once he has a PICC line placed prescription for outpatient IV daptomycin has already been provided to the case management social worker he will continue with outpatient daptomycin and a close outpatient follow-up for Dictation was produced using [employer] software. please excuse any grammatical, word or spelling errors.
--- NOTE | 2025-01-23 10:27 | CDI ---
Documentation Clarification Form Date: 01/23/2025 10:16:14 AM From: Roxana Woodall Phone: Admit Date: 01/14/2025 05:20:00 PM Patient Name: Francisco Lucio Visit Number: [id number] Discharge Date: 01/21/2025 03:40:00 PM ATTENTION: The Clinical Documentation Specialists (CDI) and [facility] Coding Staff appreciate your assistance in clarifying documentation. Please respond to the clarification below the line at the bottom and electronically sign. The CDI & [facility] Coding staff will review the response and follow-up if needed. Please note: Queries are made part of the Legal Health Record. If you have any questions, please contact the author of this message via ITS. Doctor/Provider: Александр Lacey Your patient has the documented diagnosis of unspecified CHF 01/19/2025. Additional information regarding the type of CHF is requested. History/Risk Factors: his is a pleasant 75 years old male withhistory of nicotine dependence, still smokingandCHF. Patient came to the hospital about 8 days ago forchest painfound to have lower sternalwound, culture sent showingMRSAhowever patient signed AMA. He went to see his PCPDr. Naqyester forfollow-upappointment still complaining fromchest pain. He referred him to the hospital Patient denies any GI/ symptoms. He still feels littleshort of breathand due tocoughing. Clinical Indicators: VS/Pulse OX: Vital stable and afebrile except for mildbradycardiawhich is asymptomatic. Labs are unremarkable with WBC 10.5 and 6.3, hemoglobin stable at 11.1. Creatinine chronicallyelevated1.6-1.5 which looks like baseline since last year although it fluctuates times 1.01. Chest X Ray: Mild lingualinfiltrate. Correlate foratelectasis. 2.Smallpleural effusion. 3.No obviouschanges associated with patient's reported sternalwound Pn 01/17 -Patient will requirePICCline after finalizing a blood culture per ID team. We will discuss with IV team if we can place thePICCline earlier today. Patient eager to go home. Patientdenieschest paindyspneaor any other new complaint Plan discussed with staff Pn 01/17 -Chronic diastolic CHF: Pn 01/19 -Exertionaldyspneaandcoughingrelated to acuteCHFexacerbation Treatment: Monitor creatinine and electrolytes continue home meds including diuretics metolazone,Lasix, aspirin. In your professional opinion, can you please clarify the [type] of CHF if known? [ ] Chronic Diastolic Heart Failure (preserved EF) [ x ] Acute on Chronic Diastolic Heart Failure (preserved EF) [ ] Other, please specify [ ] Unable to determine (Template Last Revised: December 2020) MTDD
== END 2025-01-21 15:40 | disposition home health service (06) | DRG 862 ==
LOC: EC 12:20 → 4SSUR 17:20
PROVIDERS: ADMIT Internal Medicine; ATTEND Internal Medicine
PROC: 02HV33Z Insertion of Infusion Device into Superior Vena Cava, Percutaneous Approach (ICD-10-PCS; principal; 2025-01-21 09:45)
DX: T81.41XA Infection following a procedure, superficial incisional surgical site, initial encounter (principal); I50.33 Acute on chronic diastolic (congestive) heart failure; I13.0 Hypertensive heart and chronic kidney disease with heart failure and stage 1 through stage 4 chronic kidney disease, or unspecified chronic kidney disease; R78.81 Bacteremia; M86.9 Osteomyelitis, unspecified; N17.9 Acute kidney failure, unspecified; I49.5 Sick sinus syndrome; E11.22 Type 2 diabetes mellitus with diabetic chronic kidney disease; I71.40 Abdominal aortic aneurysm, without rupture, unspecified; F32.A Depression, unspecified; N18.9 Chronic kidney disease, unspecified; T81.31XA Disruption of external operation (surgical) wound, not elsewhere classified, initial encounter; I48.0 Paroxysmal atrial fibrillation; L98.492 Non-pressure chronic ulcer of skin of other sites with fat layer exposed; E11.69 Type 2 diabetes mellitus with other specified complication; B95.62 Methicillin resistant Staphylococcus aureus infection as the cause of diseases classified elsewhere; E78.5 Hyperlipidemia, unspecified; F17.200 Nicotine dependence, unspecified, uncomplicated; I25.10 Atherosclerotic heart disease of native coronary artery without angina pectoris; R05.9 Cough, unspecified; R00.1 Bradycardia, unspecified; J98.4 Other disorders of lung; K21.9 Gastro-esophageal reflux disease without esophagitis; Z95.1 Presence of aortocoronary bypass graft; Z79.899 Other long term (current) drug therapy; Z79.82 Long term (current) use of aspirin; Z95.0 Presence of cardiac pacemaker
CPT/HCPCS: 36415; 36573; 71046; 71250; 80048; 80053; 80202; 82565; 83605; 85025; 85652; 86140; 87040; 87077; 87186; 96365; 96366; 96375; 99285

== ENCOUNTER → 2025-01-31 | Outpatient (CLI) | payer MEDICARE ==
--- NOTE | 2025-01-31 16:42 | XR ---
EXAMINATION TYPE: XR chest 2V DATE OF EXAM: 01/31/2025 CLINICAL INDICATION: Male, 75 years old with history of R07.9 CHEST PAIN, UNSPECIFIED, TECHNIQUE: Frontal and lateral views of the chest are obtained. COMPARISON: Chest CT January 15, 2025 FINDINGS: Moderate underlying emphysematous change bilaterally is redemonstrated. Persistent overlyin g sternal wires and mediastinal clips along with left atrial appendage clip. Persistent small left pl eural effusion or pleural thickening. There is no suspicious focal air space opacity or pneumothorax seen. The cardiac silhouette size remains within normal limits. Persistent dual-lead pacemaker. Th e osseous structures are intact. Surgical clips in the left upper abdomen are redemonstrated. IMPRESSION: Chronic changes without acute pulmonary process. [facility], , 01/31/2025 4:40 PM
== END | disposition home or self-care (01) ==
LOC: RADXRMAIN 16:18
PROVIDERS: ATTEND Surgery
DX: J43.9 Emphysema, unspecified (principal)
CPT/HCPCS: 71046

== ENCOUNTER → 2025-02-01 | Outpatient (CLI) | payer MEDICARE ==
[2025-02-01 18:10] LABS: HCT 37.8 % (39.6-50.0); HGB 12.6 g/dL (13.0-17.0); MCH 33.2 pg (27.0-32.0); MCHC 33.3 g/dL (32.0-37.0); MCV 99.7 FL (80.0-97.0); Mean Platelet Volume 10.2 FL (9.5-12.2); NRBC Per 100 WBC 0 X 10*3/uL (0.00-0.01); Platelet Count 245 X 10*3/uL (140-440); RBC 3.79 X 10*6/uL (4.40-5.60); RDW 14.1 % (11.5-14.5)
[2025-02-01 18:40] LABS: BUN/Creat Ratio 31.29 Ratio (12.00-20.00); Blood Urea Nitrogen 65.7 mg/dL (9.0-27.0); Calcium 9.7 mg/dL (8.7-10.3); Carbon Dioxide 26.8 mmol/L (21.6-31.8); Chloride 100 mmol/L (96-109); Glucose 90 mg/dL (70-110); Sodium 139 mmol/L (135-145)
== END | disposition home or self-care (01) ==
LOC: LABWHC1 14:31
PROVIDERS: ATTEND Surgery
DX: T84.9XXA Unspecified complication of internal orthopedic prosthetic device, implant and graft, initial encounter (principal)
CPT/HCPCS: 36415; 80048; 85027

== ENCOUNTER 2025-02-06 09:20 | Day surgery (SDC) | payer MEDICARE ==
[~2025-02-06 09:20] MED LIST changes: +HYDROmorphone 0.5 MG/0.5 ML SYRINGE IVP PRN; -LACTATED RINGERS 1,000 ML IV SCH
[2025-02-06] MEDS: DEXAMETHASONE SOD PHOSPHATE 4 MG/ML 1 ML VIAL IV ONE (10:10)
[2025-02-06] MEDS: LACTATED RINGERS 1,000 ML IV SCH (10:10)
[2025-02-06] MEDS: ONDANSETRON 4 MG/2 ML VIAL IVP ONE (10:11)
[2025-02-06] MEDS ORDERED: LIDOCAINE 1% INJ 10MG/ML (20 ML MDV) ONE (11:10)
[2025-02-06] MEDS ORDERED: PHENYLEPHRINE-0.9% NACL SYG 1,000 MCG/10 ML SYRINGE ONE (11:10)
[2025-02-06] MEDS ORDERED: fentaNYL (PF) 50 MCG/ML 2 ML AMP ONE (11:10)
[2025-02-06] MEDS ORDERED: SUCCINYLCHOLINE CHLORIDE 200 MG/10 ML VIAL IV ONE (11:10)
[2025-02-06] MEDS ORDERED: PROPOFOL 10 MG/ML 20 ML VIAL IV ONE (11:10)
[2025-02-06] MEDS: IV FLUID CONTINUATION 1,000 ML IV ONE (11:14)
[2025-02-06] MEDS ORDERED: HYDROmorphone 0.5 MG/0.5 ML SYRINGE IVP PRN (12:11)
--- NOTE | 2025-02-06 12:17 | P.OP ---
Date of Procedure: 02/06/25 Preoperative Diagnosis: Exposed sternal wire with localized infection Postoperative Diagnosis: Same Procedure(s) Performed: Removal of a single sternal wire with debridement Implants: None Anesthesia: HARIA Surgeon: Pura Mcintosh Pathology: other (Sternal wire for culture) Condition: stable Disposition: PACU Indications for Procedure: Patient is status post prior sternotomy around 2 years ago and has a type of the most lowest sternotomy cable that eroded through the skin with localized granulation tissue and infection that would need excision. Patient has been on IV antibiotic Operative Findings: Localized granulation tissue and exposed sternotomy cable Description of Procedure: Patient in supine position general endotracheal anesthesia was induced uneventfully. Patient has been receiving daptomycin as an outpatient. Patient received 1 g of cefazolin intravenously. The chest was prepped and draped using Betadine. I made an elliptical incision centered over the granulation tissue over the lowest sternotomy cable. The tissue had some granulation tissue without any pus. The cable was readily exposed and was retrieved in totality. Some Ethibond residual sutures were removed. The part of the superior cable was totally embedded in the tissues and not exposed does not have to remove the cable above it. Superficial oozing controlled with a low-level cautery. Thorough irrigation performed. Piece of the cable was sent for cultures. Wet and dry dressing applied. Patient tolerated procedure well.
--- NOTE | 2025-02-06 12:36 | XR ---
EXAMINATION TYPE: XR chest 1V portable DATE OF EXAM: 02/06/2025 12:31 PM COMPARISON: None. CLINICAL INDICATION: Male, 75 years old with history of post wire removal, TECHNIQUE: XR chest 1V portable views of the chest are obtained. FINDINGS: Demonstrated are scattered senescent parenchymal change. There is no evidence for focal infiltrate. . Suspect small left-sided effusion. Pacer device is in pl windy. The heart stable. Hilar and mediastinal structures are within normal limits. Degenerative changes are seen of the dorsal spine. IMPRESSION: 1. Chronic changes without evidence for acute pulmonary disease. [facility], , 02/06/2025 12:33 PM
[2025-02-06] MEDS ORDERED: traMADol 50 MG TAB PO PRN (14:03)
[2025-02-06] MEDS ORDERED: LACTULOSE 20 GM/30 ML CUP PO PRN (14:03)
[2025-02-06] MEDS ORDERED: ACETAMINOPHEN TAB 325 MG TAB PO PRN (14:03)
[2025-02-06] MEDS ORDERED: ONDANSETRON 4 MG/2 ML VIAL IVP PRN (14:03)
[2025-02-06] MEDS ORDERED: IPRATROPIUM-ALBUTEROL 3 ML NEB IH PRN (14:03)
[2025-02-06] MEDS: ASCORBIC ACID 500 MG TAB PO SCH (14:33)
[2025-02-06] MEDS: POTASSIUM CHLORIDE ER 20 MEQ TAB.ER PO SCH (14:33)
[2025-02-06] MEDS: DEXTROSE 5%-0.45% NACL 1,000 ML IV SCH (14:33)
[2025-02-06] MEDS: FERROUS SULFATE 325 MG TAB PO SCH (14:33)
[2025-02-06] MEDS: HEPARIN SODIUM,PORCINE 5,000 UNIT/ML 1 ML VIAL SQ SCH (15:29)
[2025-02-06] MEDS: CHOLECALCIFEROL 25 MCG (1000 IU) TABLET PO SCH (15:29)
[2025-02-06] MEDS: IPRATROPIUM-ALBUTEROL 3 ML NEB IH SCH (15:42)
[2025-02-06] MEDS: LINACLOTIDE 72 MCG PO SCH (19:33)
[2025-02-06] MEDS: clonazePAM 0.5 MG TAB PO SCH (19:39)
[2025-02-06] MEDS: METOPROLOL TARTRATE 12.5 MG TAB PO SCH (19:39)
[2025-02-06] MEDS ORDERED: ATORVASTATIN 20 MG TAB PO SCH (21:00)
--- NOTE | 2025-02-06 23:34 | P.CONS ---
History of Present Illness - Reason for Consult Consult date: 02/06/25 Infected sternal wire Requesting physician: Carmen Loya - Chief Complaint Nonhealing wound to the sternum x weeks - History of Present Illness Patient is a 75-year-old male with a past medical history significant forAtrial Fibrillation, Coronary Artery Disease (CAD), Cancer, GERD/Reflux, Hearing Disorder / Deafness, Hyperlipidemia, Hypertension and this patient who did have a nonhealing wound on the lower end of the sternal and also have MRSA bacteremia for the patient was treated outpatient setting with the daptomycin patient was noted to have possible retained stitch and the wound wet for the patient was referred back to the CT surgeon patient is status post removal of the single sternal wires with debridement of the wound patient subsequently has been admitt ed to the hospital infectious disease was consulted for follow-up and management of his antibiotic therapy patient denies having any fever or any chills he is breathing comfortably on room air denies any chest pain shortness of breath or cough no nausea or vomiting no abdominal pain or any diarrhea Review of Systems Positive point and negatives has been mentioned in the HPI, complete review of systems was performed and all other systems are negative Past Medical History Past Medical History: Atrial Fibrillation, Coronary Artery Disease (CAD), Cancer, GERD/Reflux, Hearing Disorder / Deafness, Hyperlipidemia, Hypertension Additional Past Medical History / Comment(s): "Chest wire exposed due to 50 lb weight loss." Current PICC Line in right arm for antibiotic treatment of MRSA in chest wound. Mitral regurgitation with repair, abdominal aortic aneurysm, hx left kidney cancer with nephrectomy - 2022, constipation, hx anemia, bilateral hearing aids, states lost one but states able to communicate using just the one hearing aid. History of Any Multi-Drug Resistant Organisms: MRSA Year Discovered:: 01/06/25 MDRO Source:: chest Past Surgical History: Coronary Bypass/CABG, Heart Catheterization, Hernia Repair, Pacemaker Additional Past Surgical History / Comment(s): Three-vessel CABG with mitral valve repair 07/27/2023, left nephrectomy 05/03/24, PICC Line insertion. Past Anesthesia/Blood Transfusion Reactions: No Reported Reaction Additional Past Anesthesia/Blood Transfusion Reaction / Comm: No problems with prior blood transfusions. Type of Cardiac Device: Permanent Pacemaker Device Placement Date:: 08/03/23 Past Psychological History: Depression Smoking Status: Current every day smoker Past Alcohol Use History: None Reported Additional Past Alcohol Use History / Comment(s): STARTED SMOKING AT AGE 15, QUIT ON AND OFF BUT CURRENTLY SMOKING, SMOKES 1 PPD. Past Drug Use History: None Reported - Past Family History Father Family Medical History: Myocardial Infarction ([place]) Additional Family Medical History / Comment(s): at age 90 from a myocardial infarction. Mother Family Medical History: Cancer Medications and Allergies Home Medications Medication Instructions Recorded Confirmed Type Citalopram Hydrobromide [CeleXA] 20 mg PO QAM 03/07/18 02/04/25 History Cholecalciferol [Vitamin D3 (25 50 mcg PO PC-LUNCH 12/11/21 02/04/25 History Mcg = 1000 Iu)] clonazePAM [KlonoPIN] 0.5 mg PO HS 08/29/23 02/04/25 History Atorvastatin [Lipitor] 20 mg PO HS 09/14/23 02/04/25 History Ferrous Sulfate [Iron (65 MG 650 mg PO PC-LUNCH 10/10/23 02/04/25 History Elemental)] Metoprolol Tartrate [Lopressor] 12.5 mg PO BID 10/10/23 02/04/25 History Aspirin EC [Ecotrin Low Dose] 81 mg PO QAM 04/06/24 02/06/25 History Lactulose 10 gm PO BID PRN 04/06/24 02/04/25 History metOLazone [Zaroxolyn] 2.5 mg PO MOFR 04/06/24 02/06/25 History Ascorbic Acid [Vitamin C] 500 mg PO PC-LUNCH 05/01/24 02/04/25 History Furosemide [Lasix] 40 mg PO QAM 05/01/24 02/06/25 History Pantoprazole Sodium [Protonix] 40 mg PO QAM 05/01/24 02/04/25 History Potassium Chloride [Klor-Con M20] 20 meq PO PC-LUNCH 05/01/24 02/04/25 History Linaclotide [Linzess] 72 mcg PO HS 01/06/25 02/04/25 History Collagenase [Santyl Ointment] 1 applic TOPICAL DAILY 02/04/25 02/06/25 History DAPTOmycin [Cubicin] 300 mg IVPB DAILY 02/04/25 02/06/25 History Allergies Allergy/AdvReac Type Severity Reaction Status Date / Time No Known Allergies Allergy Verified 02/06/25 09:46 Physical Exam Vitals: Vital Signs Temp Pulse Pulse Resp BP BP Pulse Ox 02/06/25 14:42 97.6 F 62 18 102/50 99 02/06/25 13:48 60 16 107/51 98 02/06/25 13:33 48 L 16 100/57 94 L 02/06/25 13:18 60 16 111/59 98 02/06/25 13:03 60 15 118/59 97 02/06/25 12:48 60 16 113/60 97 02/06/25 12:32 60 16 125/59 98 02/06/25 12:17 60 16 130/65 97 02/06/25 12:02 97 F L 67 12 130/70 100 02/06/25 09:56 97.8 F 60 16 112/60 100 Intake and Output 02/06/25 02/06/25 02/06/25 06:59 14:59 22:59 Intake Total 950 540 Output Total 5 300 Balance 945 240 Intake: IV 950 Oral 540 Output: Urine 300 Estimated Blood Loss 5 Other: # Voids 1 Weight 47.9 kg GENERAL DESCRIPTION: Elderly male lying in bed, no distress. No tachypnea or accessory muscle of respiration use. HEENT: Shows Pallor , no scleral icterus. Oral mucous membrane is dry. NECK: Trachea central, no thyromegaly. LUNGS: Unlabored breathing. Clear to auscultation anteriorly. No wheeze or crackle. HEART: S1, S2, regular rate and rhythm sternal wound is currently dressed no drainage ABDOMEN: Soft, no tenderness , guarding or rigidity, no organomegaly EXTREMITIES: No edema of feet. SKIN: No rash, no masses palpable. NEUROLOGICAL: The patient is awake, alert, oriented x3, mood and affect normal. Assessment and Plan (1) Sternal osteomyelitis Current Visit: No Status: Acute Code(s): M86.9 - OSTEOMYELITIS, UNSPECIFIED SNOMED Code(s): 650320229 (2) Wound dehiscence, surgical Current Visit: No Status: Acute Code(s): T81.31XA - DISRUPTION OF EXTERNAL OPERATION (SURGICAL) WOUND, NEC, INIT SNOMED Code(s): 874233020 Plan: 1patient with nonhealing lower end of the sternal wound post CABG in this patient who is status post removal of the wire from the bed of the wound and debridement and recently did have a local as well as some blood culture positive for MRSA 2-patient will be started on his daptomycin which he was taking in the outpatient setting 3-we will recheck his inflammatory markers 4-will be continued on daptomycin on discharge to finish his course of therapy We will follow on clinical condition and cultures to further adjust medication if needed Thank you for this consultation we will follow the patient along with you Dictation was produced using [employer] software. please excuse any grammatical, word or spelling errors. Time with Patient: Greater than 30
[2025-02-07 07:22] LABS: Basophils % (A) 0 %; Eosinophils # (A) 0.1 k/uL (0-0.7); Eosinophils % (A) 2 %; HCT 32.2 % (39.0-53.0); HGB 10.9 gm/dL (13.0-17.5); Lymphocytes # (A) 0.8 k/uL (1.0-4.8); Lymphocytes % (A) 12 %; MCH 33.5 pg (25.0-35.0); MCHC 33.8 g/dL (31.0-37.0); MCV 99.1 fL (80.0-100.0); Macrocytosis Slight; Mean Platelet Volume 7.6; Monocytes # (A) 0.4 k/uL (0-1.0); Monocytes % (A) 5 %; Neutrophils # (A) 5.4 k/uL (1.3-7.7); Neutrophils % (A) 80 %; Platelet Count 159 k/uL (150-450); RBC 3.25 m/uL (4.30-5.90); RDW 14.6 % (11.5-15.5); WBC 6.8 k/uL (3.8-10.6)
--- NOTE | 2025-02-07 07:43 | XR ---
EXAMINATION TYPE: XR chest 2V DATE OF EXAM: 02/07/2025 6:23 AM COMPARISON: 02/06/2025 CLINICAL INDICATION: Male, 75 years old with history of post wire removal: Shortness of breath TECHNIQUE: XR chest 2V views of the chest are obtained. FINDINGS: Scattered senescent parenchymal changes noted. Hyperinflation compatible with COPD. No evidence for infiltrate. No evidence for atelectasis. Stable basilar pleural-parenchymal opacity. Right-sided PICC line is noted to be in place. Dual lead pacemaker is identified. Heart size is stable. Mediastinal structures are stable and grossly unremarkable. No evidence for hilar prominence. Degenerative changes dorsal spine. IMPRESSION: 1. No evidence for acute pulmonary disease. [facility], , 02/07/2025 7:41 AM
[2025-02-07 07:53] LABS: ALT 16 U/L (4-49); AST 22 U/L (17-59); African American GFR (CKD) 32 (>60 ml/min/1.73 sqM); Albumin 3.5 g/dL (3.5-5.0); Alkaline Phosphatase 112 U/L (38-126); Anion Gap 9 mmol/L; Blood Urea Nitrogen 59 mg/dL (9-20); C Reactive Protein <0.5 mg/dL (<1.0); Calcium 9.6 mg/dL (8.4-10.2); Carbon Dioxide 28 mmol/L (22-30); Chloride 99 mmol/L (98-107); Glucose 139 mg/dL (74-99); Non-African American GFR(CKD) 28 (>60 ml/min/1.73 sqM); Potassium 3.8 mmol/L (3.5-5.1); Sodium 136 mmol/L (137-145); Total Bilirubin 0.4 mg/dL (0.2-1.3); Total Protein 6.7 g/dL (6.3-8.2)
[2025-02-07] MEDS: CITALOPRAM HYDROBROMIDE 20 MG TAB PO SCH (08:38)
[2025-02-07] MEDS: ASPIRIN 81 MG PO SCH (08:38)
[2025-02-07] MEDS: FUROSEMIDE 40 MG TAB PO SCH (08:38)
[2025-02-07] MEDS: PANTOPRAZOLE 40 MG TABLET PO SCH (08:38)
[2025-02-07] MEDS: COLLAGENASE 250 UNIT/GM OINTMENT 30 GM TUBE TOPICAL SCH (09:03)
[2025-02-07 09:08] VITALS: TEMP 97.9
--- NOTE | 2025-02-07 09:19 | P.CONS ---
History of Present Illness - Reason for Consult Consult date: 02/07/25 wound care - History of Present Illness This is a 75-year-old patient known to the wound care center being seen post sternal wire removal and debridement. Patient has a open ulceration to the midline sternum measuring approximately 2 x 1.5 x 0.2 cm with granulation seen throughout the wound bed minimal slough and nonviable tissue wound edges are attached to the wound base no tunneling or undermining noted. At this time s urgery is utilizing wet to dry dressing. Review Of Systems: Constitutional: No fever, no chills, no night sweats. No weight change. No weakness, fatigue or lethargy. No daytime sleepiness. Integumentary:reports wounds, no lesions. No rash or pruritus. No unusual bruising. No change in hair or nails. Physical exam: General Appearance: Alert, cooperative, no distress, appears stated age. Skin: See HPI all other Skin color, texture, tugor normal, no rashes or lesions. Neurologic: Alert oriented x3 Assessment: 1.Nonhealing ulceration other site with fat layer exposure 2. Broken sternal wire 3.Localized infection of the chest wall Plan: 1. Apply collagen, saline moist gauze and bordered foam. Change Tuesday. Patient will return to the wound care center on February 14 at 145. Thank you for the consultation any questions please contact the wound care center DNP note has been reviewed and discussed with Dr. Hwang and the impression and plan of care has been directed as dictated. Past Medical History Past Medical History: Atrial Fibrillation, Coronary Artery Disease (CAD), Cancer, GERD/Reflux, Hearing Disorder / Deafness, Hyperlipidemia, Hypertension Additional Past Medical History / Comment(s): "Chest wire exposed due to 50 lb weight loss." Current PICC Line in right arm for antibiotic treatment of MRSA in chest wound. Mitral regurgitation with repair, abdominal aortic aneurysm, hx left kidney cancer with nephrectomy - 2022, constipation, hx anemia, bilateral hearing aids, states lost one but states able to communicate using just the one hearing aid. History of Any Multi-Drug Resistant Organisms: MRSA Year Discovered:: 01/06/25 MDRO Source:: chest Past Surgical History: Coronary Bypass/CABG, Heart Catheterization, Hernia Repair, Pacemaker Additional Past Surgical History / Comment(s): Three-vessel CABG with mitral valve repair 07/27/2023, left nephrectomy 05/03/24, PICC Line insertion. Past Anesthesia/Blood Transfusion Reactions: No Reported Reaction Additional Past Anesthesia/Blood Transfusion Reaction / Comm: No problems with prior blood transfusions. Type of Cardiac Device: Permanent Pacemaker Device Placement Date:: 08/03/23 Past Psychological History: Depression Smoking Status: Current every day smoker Past Alcohol Use History: None Reported Additional Past Alcohol Use History / Comment(s): STARTED SMOKING AT AGE 15, QUIT ON AND OFF BUT CURRENTLY SMOKING, SMOKES 1 PPD. Past Drug Use History: None Reported - Past Family History Father Family Medical History: Myocardial Infarction ([place]) Additional Family Medical History / Comment(s): at age 90 from a myocardial infarction. Mother Family Medical History: Cancer Medications and Allergies Home Medications Medication Instructions Recorded Confirmed Type Citalopram Hydrobromide [CeleXA] 20 mg PO QAM 03/07/18 02/04/25 History Cholecalciferol [Vitamin D3 (25 50 mcg PO PC-LUNCH 12/11/21 02/04/25 History Mcg = 1000 Iu)] clonazePAM [KlonoPIN] 0.5 mg PO HS 08/29/23 02/04/25 History Atorvastatin [Lipitor] 20 mg PO HS 09/14/23 02/04/25 History Ferrous Sulfate [Iron (65 MG 650 mg PO PC-LUNCH 10/10/23 02/04/25 History Elemental)] Metoprolol Tartrate [Lopressor] 12.5 mg PO BID 10/10/23 02/04/25 History Aspirin EC [Ecotrin Low Dose] 81 mg PO QAM 04/06/24 02/06/25 History Lactulose 10 gm PO BID PRN 04/06/24 02/04/25 History metOLazone [Zaroxolyn] 2.5 mg PO MOFR 04/06/24 02/06/25 History Ascorbic Acid [Vitamin C] 500 mg PO PC-LUNCH 05/01/24 02/04/25 History Furosemide [Lasix] 40 mg PO QAM 05/01/24 02/06/25 History Pantoprazole Sodium [Protonix] 40 mg PO QAM 05/01/24 02/04/25 History Potassium Chloride [Klor-Con M20] 20 meq PO PC-LUNCH 05/01/24 02/04/25 History Linaclotide [Linzess] 72 mcg PO HS 01/06/25 02/04/25 History Collagenase [Santyl Ointment] 1 applic TOPICAL DAILY 02/04/25 02/06/25 History DAPTOmycin [Cubicin] 300 mg IVPB DAILY 02/04/25 02/06/25 History Allergies Allergy/AdvReac Type Severity Reaction Status Date / Time No Known Allergies Allergy Verified 02/06/25 09:46 Physical Exam Vitals: Vital Signs Temp Pulse Pulse Pulse Resp BP BP 02/07/25 08:00 97.9 F 73 17 116/54 02/07/25 04:00 97.6 F 66 16 110/57 02/06/25 23:52 62 16 107/53 02/06/25 22:19 69 18 02/06/25 22:10 66 18 02/06/25 20:00 97.5 F L 66 16 112/56 02/06/25 16:02 60 02/06/25 16:00 97.7 F 66 16 97/55 02/06/25 15:44 60 02/06/25 14:42 97.6 F 62 18 102/50 02/06/25 13:48 60 16 107/51 02/06/25 13:33 48 L 16 100/57 02/06/25 13:18 60 16 111/59 02/06/25 13:03 60 15 118/59 02/06/25 12:48 60 16 113/60 02/06/25 12:32 60 16 125/59 02/06/25 12:17 60 16 130/65 02/06/25 12:02 97 F L 67 12 130/70 02/06/25 09:56 97.8 F 60 16 112/60 Pulse Ox 02/07/25 08:00 100 02/07/25 04:00 97 02/06/25 23:52 98 02/06/25 22:19 02/06/25 22:10 02/06/25 20:00 97 02/06/25 16:02 02/06/25 16:00 99 02/06/25 15:44 02/06/25 14:42 99 02/06/25 13:48 98 02/06/25 13:33 94 L 02/06/25 13:18 98 02/06/25 13:03 97 02/06/25 12:48 97 02/06/25 12:32 98 02/06/25 12:17 97 02/06/25 12:02 100 02/06/25 09:56 100 Intake and Output 02/06/25 02/07/25 02/07/25 22:59 06:59 14:59 Intake Total 761 Output Total 300 Balance 461 Intake: Oral 761 Output: Urine 300 Other: # Voids 1 Weight 47.4 kg Results CBC & Chem 7: 02/07/25 06:49 02/07/25 06:49 Labs: Abnormal Lab Results - Last 24 Hours (Table) 02/07/25 02/07/25 Range/Units 06:49 06:49 RBC 3.25 L (4.30-5.90) m/uL Hgb 10.9 L (13.0-17.5) gm/dL Hct 32.2 L (39.0-53.0) % Lymphocytes # 0.8 L (1.0-4.8) k/uL Sodium 136 L (137-145) mmol/L BUN 59 H (9-20) mg/dL Creatinine 2.19 H (0.66-1.25) mg/dL Glucose 139 H (74-99) mg/dL Assessment and Plan (1) Non-pressure chronic ulcer of skin of other sites with fat layer exposed Current Visit: No Status: Acute Code(s): L98.492 - NON-PRS CHRONIC ULCER OF SKIN OF SITES W FAT LAYER EXPOSED SNOMED Code(s): 71442710 (2) Protruding sternal wires Current Visit: Yes Status: Acute Code(s): T81.89XA - OTH COMPLICATIONS OF PROCEDURES, NEC, INIT SNOMED Code(s): 181679353 (3) Local infection of the skin and subcutaneous tissue, unspecified Current Visit: Yes Status: Acute Code(s): L08.9 - LOCAL INFECTION OF THE SKIN AND SUBCUTANEOUS TISSUE, UNSP SNOMED Code(s): 091934361
[2025-02-07 11:32] VITALS: BP 109/57; RESP 16
[2025-02-07 11:59] VITALS: PULSE 60
[2025-02-07 13:58] VITALS: BMI 17.9
[2025-02-07 15:12] LABS: Erythrocyte Sedimentation Rate 26 mm/Hr (0-20)
--- NOTE | 2025-02-07 15:23 | P.DS ---
Providers Expected date of discharge: 02/07/25 Attending physician: Pura Mcintosh Consults: 02/06/25 14:03 Consult Physician Routine Consulting Provider: Patricia Zurita Consult Reason/Comments: known to you, infected sternal wire Do you want consulting provider notified?: Yes Primary care physician: Slim Medellinqvi Hospital Course: FINAL DIAGNOSIS: Exposed sternal wire with localized infection PRINCIPAL PROCEDURE: Removal of a single sternal wire with debridement HISTORY OF PRESENT ILLNESS: This is a 75-year-old gentleman who is known to our service from open heart surgery 2 years ago. Apparently he has been followed by Dr. Zurita and the wound care center related to exposed sternal wire with localized infection. He has been treated with IV daptomycin by Dr. Zurita. Local wound care has been completed with dressing change 3 times a week by home care as well as the wound care center. The patient was referred to Dr. Mcintosh from cardiothoracic surgery. He was recommended to undergo removal of sternal wire. The usual perioperative course was discussed in detail with the patient, all risks and benefits were explained, all questions were answered, and consent was obtained to proceed with surgery. The patient was scheduled electively at the earliest possible date. HOSPITAL COURSE: The patient was brought to the hospital on 02/06/25, taken to the preoperative area, prepared in the usual fashion, and subsequently taken to the operating room where Dr. Mcintosh removed single sternal wire with localized debridement. Upon completion of surgery the patient was extubated and taken to the recovery room for further monitoring. He was eventually admitted to 3 S. cardiac stepdown unit. He was seen by wound care nurse and Dr. Zurita with continuation of current treatment. Dressing was changed and the patient was stable for discharge to home on postoperative day #1. He received written and verbal instruction regarding his medications, activity restrictions, signs and symptoms requiring physician notification, and follow-up appointments. Patient Condition at Discharge: Stable Plan - Discharge Summary Discharge Rx Participant: No New Discharge Prescriptions: New Acetaminophen Tab [Tylenol] 650 mg PO Q4HR PRN tab PRN Reason: Mild To Moderate Pain (1 - 6) Continue Citalopram Hydrobromide [CeleXA] 20 mg PO QAM Cholecalciferol [Vitamin D3 (25 Mcg = 1000 Iu)] 50 mcg PO PC-LUNCH Metoprolol Tartrate [Lopressor] 12.5 mg PO BID Aspirin EC [Ecotrin Low Dose] 81 mg PO QAM Potassium Chloride [Klor-Con M20] 20 meq PO PC-LUNCH DAPTOmycin [Cubicin] 300 mg IVPB DAILY clonazePAM [KlonoPIN] 0.5 mg PO HS Atorvastatin [Lipitor] 20 mg PO HS Ferrous Sulfate [Iron (65 MG Elemental)] 650 mg PO PC-LUNCH Lactulose 10 gm PO BID PRN PRN Reason: Constipation metOLazone [Zaroxolyn] 2.5 mg PO MOFR Ascorbic Acid [Vitamin C] 500 mg PO PC-LUNCH Furosemide [Lasix] 40 mg PO QAM Pantoprazole Sodium [Protonix] 40 mg PO QAM Linaclotide [Linzess] 72 mcg PO HS Collagenase [Santyl Ointment] 1 applic TOPICAL DAILY Discharge Medication List Citalopram Hydrobromide [CeleXA] 20 mg PO QAM 03/07/18 [History] Cholecalciferol [Vitamin D3 (25 Mcg = 1000 Iu)] 50 mcg PO PC-LUNCH 12/11/21 [History] clonazePAM [KlonoPIN] 0.5 mg PO HS 08/29/23 [History] Atorvastatin [Lipitor] 20 mg PO HS 09/14/23 [History] Ferrous Sulfate [Iron (65 MG Elemental)] 650 mg PO PC-LUNCH 10/10/23 [History] Metoprolol Tartrate [Lopressor] 12.5 mg PO BID 10/10/23 [History] Aspirin EC [Ecotrin Low Dose] 81 mg PO QAM 04/06/24 [History] Lactulose 10 gm PO BID PRN 04/06/24 [History] metOLazone [Zaroxolyn] 2.5 mg PO MOFR 04/06/24 [History] Ascorbic Acid [Vitamin C] 500 mg PO PC-LUNCH 05/01/24 [History] Furosemide [Lasix] 40 mg PO QAM 05/01/24 [History] Pantoprazole Sodium [Protonix] 40 mg PO QAM 05/01/24 [History] Potassium Chloride [Klor-Con M20] 20 meq PO PC-LUNCH 05/01/24 [History] Linaclotide [Linzess] 72 mcg PO HS 01/06/25 [History] Collagenase [Santyl Ointment] 1 applic TOPICAL DAILY 02/04/25 [History] DAPTOmycin [Cubicin] 300 mg IVPB DAILY 02/04/25 [History] Acetaminophen Tab [Tylenol] 650 mg PO Q4HR PRN tab 02/07/25 [Rx] Follow up Appointment(s)/Referral(s): [facility], [NON-STAFF] - Pura Mcintosh MD [STAFF PHYSICIAN] - 03/01/25 10:15 am Slim Holloway MD [Primary Care Provider] - As Needed [facility], [REFERRING] - [facility] [NON-STAFF] - 02/14/25 1:45 pm Patricia Zurita MD [STAFF PHYSICIAN] - 02/13/25 2:30 pm Activity/Diet/Wound Care/Special Instructions: Dressing changes: Continue applying collagen, saline moist gauze and bordered foam. Change Tuesday, , Tuesday. Patient has follow-up appointment with Dr. Zurita on February 13 and the wound care center on February 14. Continue IV daptomycin as previously ordered Discharge Disposition: HOME WITH HOME HEALTH SERVICES
[2025-02-08] MEDS ORDERED: metOLazone 2.5 MG TAB PO SCH (09:00)
--- NOTE | 2025-02-08 16:28 | P.PN ---
Subjective Progress Note Date: 02/07/25 Principal diagnosis: Reason for follow-up is sternal wound infection Patient is a 75-year-old male with a past medical history significant forAtrial Fibrillation, Coronary Artery Disease (CAD), Cancer, GERD/Reflux, Hearing Disorder / Deafness, Hyperlipidemia, Hypertension and this patient who did have a nonhealing wound on the lower end of the sternal and also have MRSA bacteremia admitted to hospital for debridement of the sternal wound and removal of the wire. On today's evaluation that is 02/07/2025, the patient continues to be afebrile, the patient is on room air and breathing comfortably, the Pt denies having any chest pain or cough, the patient denies having any abdominal pain no vomiting or any diarrhea, mention feeling better wants to go home. Patient did have a white count of 6.8 ESR is 26 creatinine is 2.19 Objective - Vital Signs Vital signs: Vital Signs Temp 97.9 F 02/07/25 08:00 Pulse 60 02/07/25 12:07 Resp 16 02/07/25 11:30 BP 109/57 02/07/25 11:30 Pulse Ox 98 02/07/25 11:30 FiO2 Intake & Output 02/06/25 02/07/25 02/07/25 18:59 06:59 18:59 Intake Total 3414 567 8003 Output Total 305 200 Balance 1185 221 880 Weight 47.9 kg 47.4 kg Intake: IV 950 Oral 226 761 9103 Output: Urine 300 200 Estimated Blood Loss 5 Other: # Voids 1 1 - Exam GENERAL DESCRIPTION: An elderly male up in bed in no distress RESPIRATORY SYSTEM: Unlabored breathing , decreased breath sounds at bases HEART: S1 S2 regular rate and rhythm , ABDOMEN: Soft , no tenderness EXTREMITIES: No edema feet - Labs CBC & Chem 7: 02/07/25 06:49 02/07/25 06:49 Labs: Abnormal Lab Results - Last 24 Hours (Table) 02/07/25 02/07/25 Range/Units 06:49 06:49 RBC 3.25 L (4.30-5.90) m/uL Hgb 10.9 L (13.0-17.5) gm/dL Hct 32.2 L (39.0-53.0) % Lymphocytes # 0.8 L (1.0-4.8) k/uL Sodium 136 L (137-145) mmol/L BUN 59 H (9-20) mg/dL Creatinine 2.19 H (0.66-1.25) mg/dL Glucose 139 H (74-99) mg/dL Assessment and Plan (1) Sternal osteomyelitis Status: Acute Code(s): M86.9 - OSTEOMYELITIS, UNSPECIFIED SNOMED Code(s): 959588585 (2) Wound dehiscence, surgical Status: Acute Code(s): T81.31XA - DISRUPTION OF EXTERNAL OPERATION (SURGICAL) WOUND, NEC, INIT SNOMED Code(s): 919054617 Plan: 1patient with nonhealing lower end of the sternal wound post CABG in this patient who is status post removal of the wire from the bed of the wound and de bridement and recently did have a local as well as some blood culture positive for MRSA 2-patient advised to continue with IV daptomycin to finish his 6-week course of therapy previously prescribed and a close outpatient follow-up he is scheduled to follow-up with the wound care for continue current wound care discussed with [employer]ER for CT surgery Dictation was produced using [employer] dictation software. please excuse any grammatical, word or spelling errors. Time with Patient: Less than 30
== END 2025-02-07 14:08 | disposition home health service (06) ==
LOC: OR 09:20 → 3SCARD 13:58 → OR 02-07 14:08
PROVIDERS: ATTEND Surgery
DX: T81.41XA Infection following a procedure, superficial incisional surgical site, initial encounter (principal); L98.492 Non-pressure chronic ulcer of skin of other sites with fat layer exposed; E78.5 Hyperlipidemia, unspecified; F32.A Depression, unspecified; H91.90 Unspecified hearing loss, unspecified ear; I10 Essential (primary) hypertension; I25.10 Atherosclerotic heart disease of native coronary artery without angina pectoris; I48.91 Unspecified atrial fibrillation; M86.9 Osteomyelitis, unspecified; F17.210 Nicotine dependence, cigarettes, uncomplicated; Z85.528 Personal history of other malignant neoplasm of kidney; Z86.14 Personal history of Methicillin resistant Staphylococcus aureus infection; Z95.0 Presence of cardiac pacemaker; Z95.1 Presence of aortocoronary bypass graft; Z98.890 Other specified postprocedural states; Y83.8 Other surgical procedures as the cause of abnormal reaction of the patient, or of later complication, without mention of misadventure at the time of the procedure
CPT/HCPCS: 20680; 94640 ×2; 80053; 85652; 85025; 86140; 87070; 87205; 71045; 71046; C1729; J0330; J1644 ×2; J1100; J2405; J0690; J2003; J3010; J2704; J0878; J2371